=== PATIENT | female | born 1970 | race Caucasian/White ===

== ENCOUNTER 2016-11-14 13:00 | Emergency (ER) | payer SELFPAY ==
[2016-11-14 13:35] VITALS: RESP 18; TEMP 96.7
[2016-11-14] MEDS ORDERED: Sodium Chloride 0.9% 1,000 ML PRIMARY IV ONE (13:50)
[2016-11-14] MEDS ORDERED: ONDANSETRON 4 MG/2 ML VIAL IVP ONE (13:50)
[2016-11-14] MEDS ORDERED: ONDANSETRON 4 MG/2 ML VIAL ONE (13:52)
[2016-11-14 14:02] LABS: BASOPHILS # (AUTO) 0.07 10*3/UL; BASOPHILS % (AUTO) 1.2 % (0-1); EOSINOPHILS % (AUTO) 0.5 % (0-8); HEMATOCRIT 37.3 % (37.0-47.0); HEMOGLOBIN 13.1 g/dL (12.0-16.0); IMM GRAN % (AUTO) 1.5 % (0-5); IMM GRAN# (AUTO) 0.09 10*3/UL; LYMPHOCYTES % (AUTO) 36.9 % (10-50); MEAN CORPUSCULAR HEMOGLOBIN 33.9 PG (27-31); MEAN CORPUSCULAR HGB CONC 35.1 g/dL (33-37); MONOCYTES # (AUTO) 0.18 10*3/UL (0.3-0.8); NEUTROPHILS # (AUTO) 3.39 10*3/UL; NEUTROPHILS % (AUTO) 56.9 % (50-80); RED BLOOD COUNT 3.86 10^6/uL (4.20-5.40); WHITE BLOOD COUNT 5.96 10^3/uL (4.8-10.8)
[2016-11-14 14:06] LABS: PLATELET MORPHOLOGY COMMENT NORMAL MORPHOLOGY (NORM)
[2016-11-14 14:08] LABS: ASPARTATE AMINO TRANSFERASE 76 IU/L (8-39); BILIRUBIN,TOTAL 0.9 mg/dL (0.3-1.2); BLOOD UREA NITROGEN 11 mg/dL (7-22); BUN/CREATININE RATIO 18.33 (6-20); CALCIUM 9.4 mg/dL (8.7-10.7); CHLORIDE 97 meq/L (98-112); CREATININE 0.6 mg/dL (0.50-1.20); EST GLOMERULAR FILTRATION > 60 (>60 ml/min/1.73m(2)); GLUCOSE 203 mg/dL (78-110); MAGNESIUM 1.2 mg/dL (1.6-2.4); POTASSIUM 3.5 meq/L (3.8-5.2); SERUM ALCOHOL 270 mg/dL (0-10); SODIUM 140 meq/L (135-145); TOTAL PROTEIN 8.3 g/dL (6.1-8.0)
[2016-11-14] MEDS ORDERED: LORazepam 2 MG/1 ML VIAL IVP ONE ×2 (14:11→14:39)
[2016-11-14] MEDS ORDERED: LORazepam 2 MG/1 ML VIAL ONE (14:16)
--- NOTE | 2016-11-14 14:18 | PDOC ---
Alcohol/Drug Abuse HPI - General Chief Complaint: Drug / Alcohol Use &/or Abuse Stated Complaint: ACUTE ALCOHOL INTOXICATION Date Seen by Provider: 11/14/16 Time Seen by Provider: 14:14 Source: POSITIVE: RN/MD Exam Limitations: POSITIVE: Intoxication Nurse's Notes Reviewed & Considered: Yes - History of Present Illness Initial Comments: Patient comes in today with acute alcohol intoxication and vomiting. Patient with a long history of ER visits because of alcohol intoxication is brought in for further evaluation and has been placed on a 381 hold by [employer]. [id number] was placed because of inability to care for herself due to disability and substance abuse. Timing: REPORTS: Unknown Duration: Unknown Context: REPORTS: Altered Mental Status, Confusion, Desires To Detox Alcohol, Chronic ETOH Dependence Similar Symptoms Previously: Yes Recent Care Received: REPORTS: Recently Seen (In the emergency department last week.) Currently Enrolled in Methadone Program: No Associated Symptoms: REPORTS: Nausea, Vomitting, Confusion - Patient Home Medications Home Medications: Home Medications Amlodipine Besylate 5 mg PO DAILY #30 tablet 04/15/16 Metoprolol Tartrate 25 mg PO BID #60 tab 04/15/16 Losartan/Hydrochlorothiazide [Losartan-Hctz 100-12.5 mg Tab] 1 tab PO DAILY #30 tab 07/30/16 Acetaminophen [Tylenol] 650 mg PO QID PRN #1 tablet.sa 09/10/16 FLUoxetine HCl [PROzac] 20 mg PO DAILY #30 cap 09/10/16 Pantoprazole Sodium [Protonix] 40 mg PO DAILY #30 tablet. 09/10/16 Potassium Chloride 20 meq PO DAILY #20 tab 09/28/16 Promethazine HCl 1 tab PO TID PRN #20 tab 10/01/16 Ondansetron Odt [Zofran Odt] 8 mg PO Q6H PRN #10 tab.rapdis 10/24/16 Prochlorperazine Maleate [Compazine] 10 mg PO Q6H PRN #20 tablet 10/24/16 oxyCODONE/APAP 7.5/325 Tab [Percocet 7.5/325 Tab] 1 - 2 tab PO Q4H PRN #10 tab 10/26/16 LORazepam Tab [Ativan Tab] 1 mg PO Q4H PRN #12 tablet 11/08/16 - Patient Allergies Allergies/Adverse Reactions: Allergies Allergy/AdvReac Type Severity Reaction Status Date / Time No Known Drug Allergies Allergy NOT Verified 11/14/16 13:13 APPLICABLE Past Medical History - heen HEENT History: Other (please comment) Additional HEENT History: WEARS GLASSES. "BULL'S EYE VISION" Cardiovascular History: Hypertension, Other (please comment) Additional Cardiovasular History: PALPITATIONS Respiratory History: Pneumonia, Snoring, Other (please comment) Additional Respiratory History: chronic tobacco use Gastrointestinal History: GERD, Gallbladder Disease, Pancreatitis, Other ( please comment) Additional Gastrointestinal History: Chronic alcoholism. elevated liver enzymes Genitourinary History: Denies History Endocrine History: Denies History Musculoskeletal History: Joint Pain, Other (please comment) Prosthesis or Implant: Yes (BREAST AUGMENTATION) Additional Musculoskeletal History: Pt fell down several stairs and fractured right shoulder. Pt had surgery on shoulder to repair fracture. X2 Neurological History: Seizures, Other (please comment) Additional Neurological History: SEIZURE WITH DETOX Blood Disorders: Denies History Psychiatric History: Depression, Anixety Disorders, Substance Abuse, Other ( please comment) Additional Psychiatric History: ALCOHOLISM: CHRONIC AND RECURRENT. PANIC DISORDER. PATIENT RECENTLY ATTEMPTED REHAB History of Sexually Transmitted Diseases: No Cancer History: Denies History In Past Year Been Physically Harmed or Verbally Threatened: No History of MDRO: Yes Other Type of MDRO: TESTED POSITIVE 2014 FOLLOWED BY 2 NEG SWABS History of Other Communicable Diseases: Yes (MONO, VARICELLA) Tobacco Use: Current Every Day Smoker Alcohol Use: Heavy Type of alcohol normally used: Hard Liquor, Wine Substance Use Type: None Previous Surgical History: Yes Type / Date of Surgery: APPENDECTOMY, CHOLECYSTECTOMY, ABDOMINOPLASTY, BREAST AUGMENTATION, Right shoulder surgeryX2 Anesthesia Reactions: No Malignant Hyperthermia: No Significant Family History: Asthma, Heart disease, Cancer, Diabetes, Hypertension Additional Family History: EARLY MENOPAUSE - MOTHER ROS - Limitations ROS Limitations: Intoxication (Review of systems unavailable because of the patient's altered mental status and intoxicated state.) Alcohol/Drug Abuse PE - General Appearance General Appearance: POSITIVE: Moderate Stress - HEENT HEENT: POSITIVE: Head Inspection Nml, Eyes Inspection Nml, Ears Inspection Nml, Nose Inspection Nml, Oral/Dental Inspect. Nml, Pharynx Inspect. Nml, PERRL, EOMI - Pupil Size Pupil Size: 4 mm: Bilateral - Neurological/Psychological Neurological: POSITIVE: Other (Intoxicated.), Disoriented To Time Cranial Nerves: POSITIVE: Normal As Tested Cerebellar: POSITIVE: Abnormal Finger To Nose Peripheral Exam: POSITIVE: No Motor Deficits, No Sensory Deficits - Neck Neck: POSITIVE: Supple, Non Tender - Respiratory Respiratory: POSITIVE: No Respiratory Distress, Breath Sounds Normal - CVS CVS: POSITIVE: Regular Rate and Rhythm, Heart Sounds Normal - Abdomen Abdomen: Soft: (All Quadrants), Normal Bowel Sounds: (All Quadrants), Denies Tenderness: (All Quadrants) - Skin Skin: POSITIVE: Normal for Race, No Rash, Warm, Dry - Extremities Extremity: Non-Tender: (All Extremities), Normal ROM: (All Extremities), Normal Inspection: (All Extremities) Alcohol/Drug Abuse Progress - Results Reviewed by me Lab Results Reviewed: Yes Lab Results:: Laboratory Results 11/14/16 Range/Units 13:45 WBC 5.96 (4.8-10.8) 10^3/uL RBC 3.86 L (4.20-5.40) 10^6/uL Hgb 13.1 (12.0-16.0) g/dL Hct 37.3 (37.0-47.0) % MCV 96.6 (81-99) FL MCH 33.9 H (27-31) PG MCHC 35.1 (33-37) g/dL RDW Std Deviation 51.6 H (39-50) fL RDW Coeff of Farzad 15.0 H (11.5-14.5) % Plt Count 464 H (140-350) 10*3/uL MPV 9.0 (7.4-12.2) FL Immature Gran % (Auto) 1.5 (0-5) % Neut % (Auto) 56.9 (50-80) % Lymph % (Auto) 36.9 (10-50) % Wells % (Auto) 3.0 L (5-15) % Eos % (Auto) 0.5 (0-8) % Baso % (Auto) 1.2 H (0-1) % Immature Gran # (Auto) 0.09 10*3/UL Neut # (Auto) 3.39 10*3/UL Lymph # (Auto) 2.20 10*3/uL Wells # (Auto) 0.18 L (0.3-0.8) 10*3/UL Eos # (Auto) 0.03 10*3/UL Baso # (Auto) 0.07 10*3/UL WBC Morphology Comment Normal morphology (NORM) Plt Morphology Comment Normal morphology (NORM) RBC Morph Comment Normal morphology (NORM) PT 11.7 H (9.7-11.4) secs INR 1.13 (0.00-5.90) N/A Sodium 140 (135-145) meq/L Potassium 3.5 L (3.8-5.2) meq/L Chloride 97 L (98-112) meq/L Carbon Dioxide 13 L (23-33) meq/L Anion Gap 30 H (5-20) BUN 11 (7-22) mg/dL Creatinine 0.6 (0.50-1.20) mg/dL Estimated GFR > 60 (>60 ml/min/1.73m(2)) BUN/Creatinine Ratio 18.33 (6-20) Glucose 203 H (78-110) mg/dL Calculated Osmolality 294.0 H (267-292) mOsm/kg Calcium 9.4 (8.7-10.7) mg/dL Magnesium 1.2 L (1.6-2.4) mg/dL Total Bilirubin 0.9 (0.3-1.2) mg/dL AST 76 H (8-39) IU/L ALT 53 H D (9-52) IU/L Alkaline Phosphatase 110 (38-126) IU/L Total Protein 8.3 H (6.1-8.0) g/dL Albumin 4.9 H (3.5-4.8) g/dL Globulin 3.4 (2.50-4.10) g/dL Albumin/Globulin Ratio 1.40 (1.3-2.0) mg/g TSH 0.690 (0.2700-4.2000) uIU/mL Free T4 0.92 L (0.93-1.71) ng/dL Serum HCG, Qual Negative Salicylates < 1.0 (0-20) mg/dl Acetaminophen < 10.0 (0-30) ug/mL Serum Alcohol 270 H (0-10) mg/dL - Patient's Progress Pain Medication Addressed: POSITIVE: Not Applicable Status: POSITIVE: Improved MDM / ED Course: Patient brought to the emergency department on hold by [employer]. An IV was started, blood drawn and sent to lab for studies. She received a bolus of normal saline, 2 mg of Ativan, Zofran, and Phenergan. He continued to be a restorationism of repeatedly been up out of bed and trying to ambulate. He was placed into soft restraints. She has been accepted for inpatient evaluation by [facility]. Assessment: Alcohol intoxication, failure to care for self. Plan: Transfer to [facility]. - Consult Counseled: POSITIVE: Patient, Family, RE: Lab Results, RE: DX - Treatment Voluntarily Accepts Detox: No Patient Care Time - Estimated PCT Patient Care Time (In Minutes): 75 Vital Signs - Recent Vital Signs Vital Signs: Vital Signs (Last 8 hours) Temp Pulse Pulse Resp BP BP Pulse Ox 11/14/16 13:19 96.7 F L 105 H 105 H 18 172/106 172/106 99 - VS Reviewed Vital Signs Reviewed: Yes Discharge Clinical Impression: Alcohol abuse, Alcohol intoxication, Continuous chronic alcoholism Discharge Disposition: Transferred to Psychiatric Facility Condition: Stable Patient Instructions Given at Discharge: Alcohol Intoxication (ED) Date Decision to Transfer to Another Facility: 11/14/16 Time Decision to Transfer to Another Facility: 15:59
[2016-11-14 14:25] LABS: FREE T4 (FREE THYROXINE) 0.92 ng/dL (0.93-1.71)
[2016-11-14 14:27] LABS: PROTHROMBIN TIME 11.7 secs (9.7-11.4)
[2016-11-14] MEDS ORDERED: PROMETHAZINE 25 MG/1 ML VIAL IM ONE (15:35)
[2016-11-14] MEDS ORDERED: HALOPERIDOL LACTATE 5 MG/1 ML AMPULE IVP ONE (15:52)
[2016-11-15] MEDS ORDERED: Sodium Chloride 0.9% 1,000 ML ONE (06:10)
== END 2016-11-14 17:30 ==
LOC: ER 13:00
DX: F10.229 Alcohol dependence with intoxication, unspecified (principal); R11.2 Nausea with vomiting, unspecified; R41.82 Altered mental status, unspecified
CPT/HCPCS: 80053; 80320; 80329; 83735; 84439; 84443; 84703; 85025; 85610; 90791; 96372; 96374; 96375; 99284; J1630; J2060; J2405; J2550; J7030

== ENCOUNTER → 2016-11-22 | Outpatient (CLI) | payer SELFPAY ==
--- NOTE | 2016-11-22 18:31 | DI ---
History: Surgical repair right humeral fracture. Evaluate status. Procedure: Three-view examination. Prior study: 10/29/16. Findings: Fixation plate along the proximal humeral diaphysis, transfixing the surgical neck fracture . There are still some comminuted fragments laterally. 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 Adjacent clavicle and ribs appear normal. Impression: Satisfactory position of fixation plate across the proximal right humeral fracture. Taisha garcias mentioned above
== END ==
LOC: ORTHO 16:19
PROVIDERS: ATTEND Orthopaedic Surgery
DX: M25.511 Pain in right shoulder (principal); S42.291D Other displaced fracture of upper end of right humerus, subsequent encounter for fracture with routine healing; Z98.890 Other specified postprocedural states
CPT/HCPCS: 73030

== ENCOUNTER 2016-12-10 01:11 | Inpatient (IN) | payer SELFPAY ==
[2016-12-10] MEDS ORDERED: Sodium Chloride 0.9% 1,000 ML PRIMARY IV ONE ×2 (01:26→03:52)
[2016-12-10] MEDS ORDERED: NORMAL SALINE 10 ML SYRINGE FLUSH IVP PRN (01:26)
[2016-12-10] MEDS ORDERED: ONDANSETRON 4 MG/2 ML VIAL IVP ONE ×2 (01:26→03:50)
[2016-12-10 02:17] LABS: BASOPHILS # (AUTO) 0.02 10*3/UL; BASOPHILS % (AUTO) 0.2 % (0-1); EOSINOPHILS % (AUTO) 0.1 % (0-8); HEMATOCRIT 42.2 % (37.0-47.0); HEMOGLOBIN 15.1 g/dL (12.0-16.0); IMM GRAN % (AUTO) 0.2 % (0-5); IMM GRAN# (AUTO) 0.02 10*3/UL; LYMPHOCYTES # (AUTO) 1.65 10*3/uL; LYMPHOCYTES % (AUTO) 14.4 % (10-50); MEAN CORPUSCULAR HEMOGLOBIN 33.1 PG (27-31); MEAN CORPUSCULAR HGB CONC 35.8 g/dL (33-37); MEAN PLATELET VOLUME 9.4 FL (7.4-12.2); MONOCYTES # (AUTO) 0.41 10*3/UL (0.3-0.8); MONOCYTES % (AUTO) 3.6 % (5-15); NEUTROPHILS # (AUTO) 9.33 10*3/UL; NEUTROPHILS % (AUTO) 81.5 % (50-80); RDW COEFFICIENT OF VARIATION 15.3 % (11.5-14.5); RED BLOOD COUNT 4.56 10^6/uL (4.20-5.40); WHITE BLOOD COUNT 11.44 10^3/uL (4.8-10.8)
[2016-12-10 02:20] LABS: BILIRUBIN,URINE SMALL (NEG); CLARITY,URINE CLEAR (CLEAR); GLUCOSE, URINE (UA) NEGATIVE (NEG); LEUKOCYTE ESTERASE ,URINE NEGATIVE (NEG); NITRATE,URINE NEGATIVE (NEG); OCCULT BLOOD,URINE Trace-lysed (NEG); PH,URINE 5.5 (5.0-8.5); PROTEIN,URINE 30 mg/dl (NEG); UROBILINOGEN,URINE 0.2 EU/dL (0.2)
[2016-12-10 02:21] LABS: PLATELET MORPHOLOGY COMMENT NORMAL MORPHOLOGY (NORM); URINE SAMPLE TYPE CLEAN CATCH URINE
[2016-12-10 02:26] LABS: BILIRUBIN,TOTAL 1.5 mg/dL (0.3-1.2); CALCIUM 10.7 mg/dL (8.7-10.7); CREATININE 1.8 mg/dL (0.50-1.20); POTASSIUM 3.2 meq/L (3.8-5.2); TOTAL PROTEIN 9.5 g/dL (6.1-8.0)
[2016-12-10 02:27] LABS: AMYLASE 514 U/L (30-110)
[2016-12-10 02:33] LABS: BACTERIA,URINE RARE; RBC,URINE 0-3 /hpf; SQUAMOUS EPITHELIAL CELL,UR FEW
[2016-12-10] MEDS ORDERED: PROMETHAZINE 25 MG/1 ML VIAL IM ONE (02:36)
[2016-12-10] MEDS ORDERED: HYDROmorphone 2 MG/1 ML IVP ONE (03:50)
[2016-12-10] MEDS ORDERED: MAG HYDROX/AL HYDROX/SIMETH 30 ML SUSP PO PRN (04:08)
[2016-12-10] MEDS ORDERED: HYDROmorphone 2 MG/1 ML IVP PRN (04:08)
[2016-12-10] MEDS ORDERED: Sodium Chloride 0.9% 1,000 ML IV ONE (04:08)
[2016-12-10] MEDS ORDERED: Magnesium Sulfate 4gm (Premix) 4 GM in Premix 1 BAG IV ONE (04:08)
[2016-12-10] MEDS ORDERED: MAGNESIUM 400 MG/5 ML - 30 ML (MILK OF MAGNESIA) PO PRN (04:08)
--- NOTE | 2016-12-10 04:23 | PDOC ---
Abdomen/Flank HPI - General Chief Complaint: General Medical Stated Complaint: abdominal pain; vomiting Date Seen by Provider: 12/10/16 Time Seen by Provider: 01:20 Source: POSITIVE: Patient, Old records Exam Limitations: POSITIVE: No limitations Nurse's Notes Reviewed & Considered: Yes - History of Present Illness Initial Comments: The patient is a 46-year-old female. She states that for the last 1-2 days she' s had upper abdominal pain and associated nausea and vomiting. Patient has a long-standing history of recurring pancreatitis. She also has a history of alcohol abuse. She states she's not had any alcohol since 14 November. Patient has had a cholecystectomy. Body Location Affected: REPORTS: Abdomen Timing: REPORTS: Gradual, Getting Worse Duration: >24 hours Severity: Moderate Quality: REPORTS: "Pain" Abdominal Pain Onset Location: REPORTS: Epigastric, Periumbilical Abdominal Pain Radiation: REPORTS: No radiation Context: DENIES: None, Activity, Bending, Coughing, Fall, Lifting, Near Fall, Rest, Sitting, Sleep, Standing, Turning, Emotional stress, Camping, Bad Food, Out of Country Travel, Other, Recent Surgery, Recent Trauma Modifying Factors: improves with: Vomiting Associated Symptoms: REPORTS: Nausea, Vomiting. DENIES: Denies symptoms, Back pain, Bloody Emesis, Chest pain, Coffee Grounds Emesis, Chills, Diaphoresis, Fever, Fatigue, Headache, Heartburn, Loss of Appetite, Rash, Shortness of breath , Swelling/mass in abdomen, Syncope, Testicular Pain, Weakness, Grossly Bloody Diarrhea, Constipation, Diarrhea, Dysuria, Incontinent Stool, Incontinent Urine , Mucous Diarrhea, Difficulty Walking, Dizziness, Light Headedness, Numbness, Other Similar Symptoms Previously: Yes Recent Care Received: REPORTS: Denies Any Prior Injuries Related to Current Complaint?: No - Patient Home Medications Home Medications: Home Medications Acetaminophen [Tylenol] 650 mg PO QID PRN #1 tablet. 09/10/16 Pantoprazole Sodium [Protonix] 40 mg PO DAILY #30 tablet. 09/10/16 Potassium Chloride 20 meq PO DAILY #20 tab 09/28/16 Promethazine HCl 1 tab PO TID PRN #20 tab 10/01/16 Ondansetron Odt [Zofran Odt] 8 mg PO Q6H PRN #10 tab.willow 10/24/16 Prochlorperazine Maleate [Compazine] 10 mg PO Q6H PRN #20 tablet 10/24/16 Fluoxetine HCl 1 cap PO DAILY #30 cap 11/19/16 Amlodipine Besylate 5 mg PO DAILY #30 tablet 11/29/16 Clonazepam 1 tab PO BID #14 tab 11/29/16 Losartan/Hydrochlorothiazide [Losartan-Hctz 100-12.5 Mg Tab] 1 tab PO DAILY #30 tab 11/29/16 Metoprolol Tartrate 25 mg PO BID #60 tab 11/29/16 - Patient Allergies Allergies/Adverse Reactions: Allergies Allergy/AdvReac Type Severity Reaction Status Date / Time No Known Drug Allergies Allergy NOT Verified 12/10/16 01:20 APPLICABLE Past Medical History - heen HEENT History: Other (please comment) Additional HEENT History: WEARS GLASSES. "BULL'S EYE VISION" Cardiovascular History: Hypertension, Other (please comment) Additional Cardiovasular History: PALPITATIONS Respiratory History: Pneumonia, Snoring, Other (please comment) Additional Respiratory History: chronic tobacco use Gastrointestinal History: GERD, Gallbladder Disease, Pancreatitis, Other ( please comment) Additional Gastrointestinal History: Chronic alcoholism. elevated liver enzymes Genitourinary History: Denies History Endocrine History: Denies History Musculoskeletal History: Joint Pain, Other (please comment) Prosthesis or Implant: Yes (BREAST AUGMENTATION) Additional Musculoskeletal History: Pt fell down several stairs and fractured right shoulder. Pt had surgery on shoulder to repair fracture. X2 Neurological History: Seizures, Other (please comment) Additional Neurological History: SEIZURE WITH DETOX Blood Disorders: Denies History Psychiatric History: Depression, Anixety Disorders, Substance Abuse, Other ( please comment) Additional Psychiatric History: ALCOHOLISM: CHRONIC AND RECURRENT. PANIC DISORDER. PATIENT RECENTLY ATTEMPTED REHAB History of Sexually Transmitted Diseases: No Cancer History: Denies History In Past Year Been Physically Harmed or Verbally Threatened: No History of MDRO: Yes Type of MDRO: MRSA Other Type of MDRO: TESTED POSITIVE 2014 FOLLOWED BY 2 NEG SWABS History of Other Communicable Diseases: Yes (MONO, VARICELLA) Tobacco Use: Current Every Day Smoker Alcohol Use: Heavy Substance Use Type: None Previous Surgical History: Yes Type / Date of Surgery: APPENDECTOMY, CHOLECYSTECTOMY, ABDOMINOPLASTY, BREAST AUGMENTATION, Right shoulder surgeryX2 Anesthesia Reactions: No Malignant Hyperthermia: No Significant Family History: Asthma, Heart disease, Cancer, Diabetes, Hypertension Additional Family History: EARLY MENOPAUSE - MOTHER Past Medical History Reviewed: Reviewed - No Changes ROS - Limitations ROS Limitations: No Limitations Constitution: REPORTS: Denies Symptoms Cardiovascular: REPORTS: Denies Cardiac Symptoms Respiratory: REPORTS: Denies Resp Symptoms Neurological: REPORTS: Denies Neuro Symptoms Gastrointestinal: REPORTS: Abdominal Pain, Nausea, Vomitting Endocrine: REPORTS: Denies Symptoms Musculoskeletal: REPORTS: Denies MS Symptoms Genitourinary: REPORTS: Denies Symptoms Eyes: REPORTS: Denies Symptoms ENT: REPORTS: Denies Symptoms Skin: REPORTS: Denies Skin Symptoms Lympathic: REPORTS: Denies Lympathic Symptoms Immunologic: POSITIVE: Denies Symptoms Psychiatric: POSITIVE: Denies Psych Symptoms Abdominal/Flank Pain PE - General Appearance General Appearance: POSITIVE: Alert, Cooperative, No Acute Distress, No Evidence of Trauma, Anxious - HEENT HEENT: POSITIVE: Head Inspection Nml, Eyes Inspection Nml, Ears Inspection Nml, Nose Inspection Nml, Oral/Dental Inspect. Nml, Pharynx Inspect. Nml, PERRL, EOMI - Neck Neck: POSITIVE: Normal Inspection, No Apparent Injury - Respiratory Respiratory: POSITIVE: No Respiratory Distress, Breath Sounds Normal, Chest Non- Tender - Cardiovascular Cardiovascular: POSITIVE: Regular Rate and Rhythm, Heart Sounds Normal, Equal Pulses, Strong Pulses Peripheral Pulses: Radial (R): 2+, Radial (L): 2+ - Chest Chest: POSITIVE: Non Tender - Abdomen Abdomen: Soft: (All Quadrants), Normal Bowel Sounds: (All Quadrants), No Splenomegaly: (All Quadrants), No Hepatomegaly: (All Quadrants), No Guarding: ( All Quadrants), No Rebound: (All Quadrants), No Palpable Pulse: (All Quadrants) , No Palpabale Mass: (All Quadrants), No Distention: (All Quadrants), No Rigidity: (All Quadrants), Tenderness Noted: (RUQ), (LUQ) (paraumbilical area) Additional Abdominal Details: Abdominal examination shows bowel sounds to be present. Patient has pain on palpation over the epigastric area and paraumbilical area, without masses or organomegaly or rebound. 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 Normal As Tested, Motor Normal, Sensation Normal - Psychological Psychiatric: POSITIVE: Affect Appropriate, Mood Appropriate Images - Complete Complete: 1 - Pain on palpation Abdomen Progress - Results Reviewed by me Lab Results Reviewed: Yes Lab Results:: Laboratory Results 12/10/16 12/10/16 Range/Units 02:14 03:20 WBC 11.44 H (4.8-10.8) 10^3/uL RBC 4.56 (4.20-5.40) 10^6/uL Hgb 15.1 (12.0-16.0) g/dL Hct 42.2 (37.0-47.0) % MCV 92.5 (81-99) FL MCH 33.1 H (27-31) PG MCHC 35.8 (33-37) g/dL RDW Std Deviation 51.2 H (39-50) fL RDW Coeff of Farzad 15.3 H (11.5-14.5) % Plt Count 261 (140-350) 10*3/uL MPV 9.4 (7.4-12.2) FL Immature Gran % (Auto) 0.2 (0-5) % Neut % (Auto) 81.5 H (50-80) % Lymph % (Auto) 14.4 (10-50) % [place]er % (Auto) 3.6 L (5-15) % Eos % (Auto) 0.1 (0-8) % Baso % (Auto) 0.2 (0-1) % Immature Gran # (Auto) 0.02 10*3/UL Neut # (Auto) 9.33 10*3/UL Lymph # (Auto) 1.65 10*3/uL [place]er # (Auto) 0.41 (0.3-0.8) 10*3/UL Eos # (Auto) 0.01 10*3/UL Baso # (Auto) 0.02 10*3/UL WBC Morphology Comment Normal morphology (NORM) Plt Morphology Comment Normal morphology (NORM) RBC Morph Comment Normal morphology (NORM) Sodium 131 L (135-145) meq/L Potassium 3.2 L (3.8-5.2) meq/L Chloride 87 L (98-112) meq/L Carbon Dioxide 17 L (23-33) meq/L Anion Gap 27 H (5-20) BUN 45 H (7-22) mg/dL Creatinine 1.8 H (0.50-1.20) mg/dL Estimated GFR 30 (>60 ml/min/1.73m(2)) BUN/Creatinine Ratio 25.00 H (6-20) Glucose 149 H (78-110) mg/dL Calculated Osmolality 286.0 (267-292) mOsm/kg Calcium 10.7 (8.7-10.7) mg/dL Total Bilirubin 1.5 H (0.3-1.2) mg/dL AST 47 H (8-39) IU/L ALT 43 (9-52) IU/L Alkaline Phosphatase 117 (38-126) IU/L Total Protein 9.5 H (6.1-8.0) g/dL Albumin 5.7 H (3.5-4.8) g/dL Globulin 3.8 (2.50-4.10) g/dL Albumin/Globulin Ratio 1.50 (1.3-2.0) mg/g Amylase 514 H (30-110) U/L Lipase 4043 H* (23-300) IU/L Serum HCG, Qual Negative Ur Collection Type Clean catch urine Urine Color Yellow Urine Clarity Clear (CLEAR) Urine pH 5.5 (5.0-8.5) Ur Specific [place] 1.015 (1.005-1.030) Urine Protein 30 (NEG) mg/dl Urine Glucose (UA) Negative (NEG) mg/dL Urine Ketones 15 (NEG) Urine Occult Blood Trace-lysed H (NEG) Urine Nitrate Negative (NEG) Urine Bilirubin Small (NEG) Urine Urobilinogen 0.2 (0.2) EU/dL Ur Leukocyte Esterase Negative (NEG) Urine RBC 0-3 (NONE) /hpf Urine WBC 3-5 (NONE) Ur Squamous Epith Cells Few (NONE) Ur Renal Epithelial Cell None (NONE) Urine Crystals None Urine Bacteria Rare (NONE) Urine Casts Few (NONE) Urine Mucus Rare (NONE) Urine Trichomonas None (NONE) Urine Yeast None (NONE) Ur Culture Indicated? Culture not set Serum Alcohol < 10 (0-10) mg/dL - Patient's Progress Pain Medication Addressed: POSITIVE: Yes (Dilaudid 2 mg IV) School/Work Release Addressed: POSITIVE: Not Applicable Re-examine Time: 03:50 Re-Examine Comment: Patient given 2 L of normal saline IV along with 2 mg of Dilaudid IV and 4 mg of Zofran IV, and 50 mg of Phenergan IM, with some improvement of pain. Status: POSITIVE: Improved, Re-Examined - Consult Consult (If Yes, Name of Consulting MD & Time Called): Yes (, hospitalist , 1894 ) Consulting MD will see pt:: POSITIVE: [facility] [place] Admit Counseled: POSITIVE: Patient, RE: Lab Results, RE: DX, RE: Need for F/U Patient Care Time - Estimated PCT Patient Care Time (In Minutes): 40 Vital Signs - Recent Vital Signs Vital Signs: Vital Signs (Last 8 hours) Temp Pulse Resp BP Pulse Ox 12/10/16 01:15 98.1 F 101 H 18 156/104 98 - VS Reviewed Vital Signs Reviewed: Yes Discharge Clinical Impression: Pancreatitis, acute Discharge Disposition: Admit to Inpatient Condition: Stable Date Decision to Admit to Inpatient: 12/10/16 Time Decision to Admit to Inpatient: 03:30
[2016-12-10] MEDS: Diazepam Inj (ETOH withdrawal)10 MG/2 ML CARPUJECT IVP PRN ×2 (05:17→08:50)
[2016-12-10] MEDS: NORMAL SALINE 10 ML SYRINGE FLUSH IVP PRN (05:17)
[2016-12-10] MEDS: D5-1/2NS + 40mEq KCL 1,000 ML PRIMARY IV SCH ×3 (07:10→20:10)
[2016-12-10] MEDS: OMEPRAZOLE 20 MG CAPSULE PO SCH (08:31)
[2016-12-10] MEDS: NICOTINE 21 MG /DAY PATCH TRANSDERM SCH (08:31)
[2016-12-10] MEDS: Metoprolol TARTRATE Tab 25 MG TAB PO SCH ×2 (08:32→20:10)
[2016-12-10] MEDS: FLUoxetine 20 MG CAPSULE PO SCH (08:32)
[2016-12-10] MEDS: MAGNESIUM OXIDE 400 MG TABLET PO SCH ×2 (08:32→20:10)
[2016-12-10] MEDS: AmLODIPine Tab 5 MG TABLET PO SCH (08:32)
[2016-12-10] MEDS: HYDROmorphone 2 MG/1 ML IVP PRN ×5 (11:05→20:09)
[2016-12-10] MEDS: ONDANSETRON 4 MG/2 ML VIAL IV PRN (11:07)
[2016-12-10] MEDS: LORazepam Inj(ETOH withdrawal) 2 MG/ML VIAL IVP PRN ×2 (11:10→13:43)
--- NOTE | 2016-12-10 13:43 | PDOC ---
History and Physical - History of Present Illness History of Present Illness: There is a very nice 46-year-old female with past medical history of alcohol abuse and recurrent pancreatitis she is well-known to our service and has been admitted again for acute episode of pancreatitis she has had some left upper abdominal pain over the last few days with some nausea and vomiting she was alcohol free for about a couple months then she started drinking again and she states that she has not had a drink since November 14 but developed pancreatitis and nevertheless this is may be her fourth or fifth episode Past Medical History Medical History: 1. Hypertension. 2. tobacco abuse. 3. Alcohol abuse. 4. Recurrent pancreatitis. 5. Major depressive disorder versus bipolar disorder, one of the reasons patient states she drinks alcohol. 6. Medical noncompliance Surgical History: 1. History of cholecystectomy. 2. Appendectomy. 3. Breast augmentation and tummy tuck. 4. Shoulder surgery couple weeks ago Family History: Reviewed an Not Pertinent Pertinent Family History: The patient is adopted but states her biologic mother had diabetes type II Past Social History: Smokes, drinks alcohol, lives in [place] with her father Tobacco Use: Current Every Day Smoker Substance Use Type: None Medication / Allergies Home Medications: Home Medications Medication Instructions Recorded Confirmed Type Acetaminophen [Tylenol] 650 mg PO QID PRN #1 tablet. 09/10/16 12/10/16 Rx Pantoprazole Sodium [Protonix] 40 mg PO DAILY #30 tablet. 09/10/16 12/10/16 Rx Potassium Chloride 20 meq PO DAILY #20 tab 09/28/16 12/10/16 Rx Promethazine HCl 1 tab PO TID PRN #20 tab 10/01/16 12/10/16 Clinic Ondansetron Odt [Zofran Odt] 8 mg PO Q6H PRN #10 tab.rapdis 10/24/16 12/10/16 Rx Prochlorperazine Maleate 10 mg PO Q6H PRN #20 tablet 10/24/16 12/10/16 Rx [Compazine] Fluoxetine HCl 1 cap PO DAILY #30 cap 11/19/16 12/10/16 Clinic Amlodipine Besylate 5 mg PO DAILY #30 tablet 11/29/16 12/10/16 Clinic Clonazepam 1 tab PO BID #14 tab 11/29/16 12/10/16 Clinic Losartan/Hydrochlorothiazide 1 tab PO DAILY #30 tab 11/29/16 12/10/16 Clinic [Losartan-Hctz 100-12.5 Mg Tab] Metoprolol Tartrate 25 mg PO BID #60 tab 11/29/16 12/10/16 Clinic Allergies/Adverse Reactions: Allergies Allergy/AdvReac Type Severity Reaction Status Date / Time No Known Drug Allergies Allergy NOT Verified 12/10/16 13:32 APPLICABLE Review of Systems - Respiratory Respiratory: DENIES: Negative System Review, Cough, Sputum, Dyspnea At Rest, Dyspnea with Exertion, Pleuritic Pain, Hemoptysis, Wheezing, Other, See HPI - Gastrointestinal Gastrointestinal / Abdominal: REPORTS: Nausea, Abdominal Pain. DENIES: Diarrhea - Genitourinary Genitourinary: DENIES: Negative System Review, Pain, Burning, Hematuria, Incontinence, Urgency, Hesitant Stream, Decreased Stream, Nocutria, Discharge, Sexual Dyfunction, Other, See HPI - Neurological Neurologic: DENIES: Negative System Review, Headache, Numbness/Paresthesia, Tremors, Weakness, Seizures, Head Trauma, LOC, Dizziness, Confusion, Memory Loss , Difficulty Walking, Incoordination, Other, See HPI Exam - Vitals Vital Signs: Vital Signs Temperature 97.6 F Temperature Source Temporal Artery Scan Pulse Rate [Pulse Oximeter] 79 Pulse Rate 83 Respiratory Rate 16 Blood Pressure [Left Arm] 156/93 Blood Pressure 147/87 Pulse Ox 95 Oxygen Delivery Method Room Air Height 5 ft 3 in Weight 56.699 kg - General General Appearance: POSITIVE: No Acute Distress, Cooperative - Head Head Exam: POSITIVE: Normal Inspection - Eye Eye Exam: POSITIVE: Normal Appearance - Respiratory Respiratory Exam: POSITIVE: Clear to Auscultation - Bilaterally, Breathing Non Labored, Normal To Percussion - Cardiovascular Cardiovascular Exam: POSITIVE: RRR, No Murmur, No Clicks - GI/Abdominal Additional GI/Abdominal Exam Details: Left upper quadrant pain no guarding - Extremities Extremities Exam: POSITIVE: No Clubbing Present, No Edema Present - Neurological Neurological Exam: POSITIVE: Oriented x 3, CN II-XII Intact - Psychiatric Psychiatric Exam: POSITIVE: Normal Affect, Normal Mood Results - Labs CBC and BMP: 12/10/16 02:14 12/10/16 02:14 Labs - Last 24 Hours: Laboratory Results 12/10/16 Range/Units 04:23 Lactic Acid 0.6 L (0.70-2.10) MMOL/L Assessment and Plan - Patient Problems (1) Pancreatitis, acute Current Visit: Yes Status: Acute Code(s): K85.9 (2) Acute hypokalemia Current Visit: No Status: Acute (3) Anxiety Current Visit: No Status: Acute - Assessment / Plan Additional Assessment/Plan Details: #1 acute pancreatitis most likely chronic recurrent episodes and by mouth pain control IV fluids we will check a CAT scan of her abdomen #2 electrolyte imbalance replace #3 he hydration IV fluids 75 mL an hour
[2016-12-10 14:18] LABS: BLOOD UREA NITROGEN 23 mg/dL (7-22); BUN/CREATININE RATIO 28.75 (6-20); CALCIUM 8.8 mg/dL (8.7-10.7); CHLORIDE 96 meq/L (98-112); CREATININE 0.8 mg/dL (0.50-1.20); EST GLOMERULAR FILTRATION > 60 (>60 ml/min/1.73m(2)); GLUCOSE 188 mg/dL (78-110); POTASSIUM 3.6 meq/L (3.8-5.2); SODIUM 131 meq/L (135-145)
--- NOTE | 2016-12-10 18:15 | DI ---
CT ABDOMEN SCAN WITH IV CONTRAST, 12/10/2016 1:43 PM : Clinical History: Pancreatitis. Abdominal pain. Previous Exam: None at this facility. Scans are performed from the lower lung bases through the liver and kidneys with IV contrast. 50 ml o f Isovue 300 was injected IV by hand by myself. No oral or rectal contrast was ordered. The lung bases are clear. There is hepatomegaly with fatty infiltration. The gallbladder is grossly n ormal. Both adrenal glands and the spleen are normal. Very mild inflammatory/infiltrative change has developed in the retroperitoneal fat surrounding the body and tail of the pancreas consistent with th e clinical history of pancreatitis. The pancreatic duct is not dilated and there are no pseudocysts. There is a single punctate calcification but this probably is in the splenic artery. There are no efrain ices visualized. Both kidneys are normal in size, shape, position and contour. There is no hydronephr osis or hydroureter. No right renal or ureteral calculi are present. There is a 9 mm nonobstructing c alculus in upper pole calyx of the left kidney and a 4 mm calculus located in a mid zone calyx. There is no ureteral calculus seen on the left side. There are no abnormal retrocrural or periaortic nodes . No ascites is present. READIN. There is mild peripancreatic inflammatory/infiltrative change primarily over the region of the omar dy and tail of the pancreas consistent with pancreatitis. There are no pseudocysts or pancreatic duct dilatation or pancreatic calcifications. 2. Fatty infiltration of the liver with mild hepatomegaly. No varices are identified. 3. There are 2 nonobstructing left renal calculi that are unchanged from the previous study. CT PELVIS SCAN WITH IV CONTRAST, 12/10/2016 1:43 PM: Clinical History: See above. Previous Exam: None at this facility. Scans are performed from just superior to the umbilicus to the symphysis pubis with IV contrast. This is the same bolus of contrast used for the CT scans of the abdomen. Scans through the lower abdomen and pelvis show no masses or abnormal fluid collections. There is no adenopathy. The appendix is not visualized but there is no inflammatory mass either in the cecal tip or in the right lower quadrant. The small bowel, terminal ileum, and ileocecal valve are normal. The colon is also normal. There are no hernias. The uterus is unremarkable in the left ovary is normal. T he right ovary is not identified with certainty. READING: Normal CT scan of the pelvis.
[2016-12-11] MEDS: HYDROmorphone 2 MG/1 ML IVP PRN ×7 (00:21→21:00)
[2016-12-11] MEDS: NORMAL SALINE 10 ML SYRINGE FLUSH IVP PRN (02:25)
[2016-12-11] MEDS: LORazepam Inj(ETOH withdrawal) 2 MG/ML VIAL IVP PRN ×2 (02:26→17:21)
[2016-12-11] MEDS: D5-1/2NS + 40mEq KCL 1,000 ML PRIMARY IV SCH ×4 (04:52→23:49)
[2016-12-11 05:52] LABS: BASOPHILS # (AUTO) 0.01 10*3/UL; BASOPHILS % (AUTO) 0.1 % (0-1); EOSINOPHILS % (AUTO) 0.7 % (0-8); HEMATOCRIT 37.8 % (37.0-47.0); HEMOGLOBIN 12.9 g/dL (12.0-16.0); IMM GRAN % (AUTO) 0.1 % (0-5); IMM GRAN# (AUTO) 0.01 10*3/UL; LYMPHOCYTES # (AUTO) 2.11 10*3/uL; LYMPHOCYTES % (AUTO) 29.8 % (10-50); MEAN CORPUSCULAR HEMOGLOBIN 32.3 PG (27-31); MEAN CORPUSCULAR HGB CONC 34.1 g/dL (33-37); MEAN PLATELET VOLUME 9.7 FL (7.4-12.2); MONOCYTES # (AUTO) 0.49 10*3/UL (0.3-0.8); MONOCYTES % (AUTO) 6.9 % (5-15); NEUTROPHILS # (AUTO) 4.42 10*3/UL; NEUTROPHILS % (AUTO) 62.4 % (50-80); WHITE BLOOD COUNT 7.09 10^3/uL (4.8-10.8)
[2016-12-11 05:55] LABS: PLATELET MORPHOLOGY COMMENT NORMAL MORPHOLOGY (NORM)
[2016-12-11 06:02] LABS: ASPARTATE AMINO TRANSFERASE 36 IU/L (8-39); BILIRUBIN,TOTAL 0.9 mg/dL (0.3-1.2); BLOOD UREA NITROGEN 11 mg/dL (7-22); BUN/CREATININE RATIO 18.33 (6-20); CALCIUM 9.2 mg/dL (8.7-10.7); CHLORIDE 98 meq/L (98-112); CREATININE 0.6 mg/dL (0.50-1.20); EST GLOMERULAR FILTRATION > 60 (>60 ml/min/1.73m(2)); GLUCOSE 107 mg/dL (78-110); MAGNESIUM 1.7 mg/dL (1.6-2.4); SODIUM 132 meq/L (135-145); TOTAL PROTEIN 7.5 g/dL (6.1-8.0)
[2016-12-11] MEDS: OMEPRAZOLE 20 MG CAPSULE PO SCH (07:37)
[2016-12-11] MEDS: MAGNESIUM OXIDE 400 MG TABLET PO SCH ×2 (09:01→21:32)
[2016-12-11] MEDS: FLUoxetine 20 MG CAPSULE PO SCH (09:01)
[2016-12-11] MEDS: NICOTINE 21 MG /DAY PATCH TRANSDERM SCH (09:01)
[2016-12-11] MEDS: Metoprolol TARTRATE Tab 25 MG TAB PO SCH ×2 (09:01→21:31)
[2016-12-11] MEDS: AmLODIPine Tab 5 MG TABLET PO SCH (09:02)
[2016-12-11] MEDS: Patch Removal PATCH TRANSDERM SCH (09:54)
--- NOTE | 2016-12-11 11:28 | PDOC(PROG) ---
Interval History: There were little better less pain lipase trending down Objective : Data - Labs CBC and BMP: 12/11/16 05:40 12/11/16 05:40 Labs - Last 24 Hours: Laboratory Results 12/10/16 12/11/16 Range/Units 14:03 05:40 WBC 7.09 (4.8-10.8) 10^3/uL RBC 4.00 L (4.20-5.40) 10^6/uL Hgb 12.9 (12.0-16.0) g/dL Hct 37.8 (37.0-47.0) % MCV 94.5 (81-99) FL MCH 32.3 H (27-31) PG MCHC 34.1 (33-37) g/dL RDW Std Deviation 50.5 H (39-50) fL RDW Coeff of Farzad 15.0 H (11.5-14.5) % Plt Count 190 (140-350) 10*3/uL MPV 9.7 (7.4-12.2) FL Immature Gran % (Auto) 0.1 (0-5) % Neut % (Auto) 62.4 (50-80) % Lymph % (Auto) 29.8 (10-50) % [place] % (Auto) 6.9 (5-15) % Eos % (Auto) 0.7 (0-8) % Baso % (Auto) 0.1 (0-1) % Immature Gran # (Auto) 0.01 10*3/UL Neut # (Auto) 4.42 10*3/UL Lymph # (Auto) 2.11 10*3/uL [place] # (Auto) 0.49 (0.3-0.8) 10*3/UL Eos # (Auto) 0.05 10*3/UL Baso # (Auto) 0.01 10*3/UL WBC Morphology Comment Normal morphology (NORM) Plt Morphology Comment Normal morphology (NORM) RBC Morph Comment Normal morphology (NORM) Sodium 131 L 132 L (135-145) meq/L Potassium 3.6 L 4.0 (3.8-5.2) meq/L Chloride 96 L 98 (98-112) meq/L Carbon Dioxide 21 L 21 L (23-33) meq/L Anion Gap 14 13 (5-20) BUN 23 H 11 (7-22) mg/dL Creatinine 0.8 0.6 (0.50-1.20) mg/dL Estimated GFR > 60 > 60 (>60 ml/min/1.73m(2)) BUN/Creatinine Ratio 28.75 H 18.33 (6-20) Glucose 188 H 107 (78-110) mg/dL Calculated Osmolality 280.0 272.0 (267-292) mOsm/kg Calcium 8.8 9.2 (8.7-10.7) mg/dL Magnesium 1.7 (1.6-2.4) mg/dL Total Bilirubin 0.9 (0.3-1.2) mg/dL AST 36 (8-39) IU/L ALT 27 (9-52) IU/L Alkaline Phosphatase 75 (38-126) IU/L Total Protein 7.5 (6.1-8.0) g/dL Albumin 4.6 (3.5-4.8) g/dL Globulin 2.9 (2.50-4.10) g/dL Albumin/Globulin Ratio 1.50 (1.3-2.0) mg/g Lipase 1830 H* (23-300) IU/L Objective : Exam - General General Appearance: Cooperative - Respiratory Respiratory Exam: Clear to Auscultation - Bilaterally, Breathing Non Labored, Normal To Percussion - Cardiovascular Cardiovascular Exam: RRR, No Murmur, No Clicks - GI/Abdominal Additional GI/Abdominal Exam Details: Still some pain in the left lower quadrant but no guarding or rebound improved since yesterday Assessment and Plan - Patient Problems (1) Pancreatitis, acute Current Visit: Yes Status: Acute Code(s): K85.9 (2) Acute hypokalemia Current Visit: No Status: Acute (3) Anxiety Current Visit: No Status: Acute - Assessment / Plan Additional Assessment/Plan Details: #1 alcoholic pancreatitis patient is improving lipase is trending down pain is improving we will plan on doing clear liquids in the morning if pain is resolved CT scan was reviewed there is no pseudocyst or other abnormalities into the IV pain control #2 alcohol use continue CIWA scale with Ativan
[2016-12-11] MEDS ORDERED: Magnesium Sulfate 2gm (Premix) 2 GM in Premix 1 BAG IV ONE (11:30)
[2016-12-11] MEDS: ONDANSETRON 4 MG/2 ML VIAL IV PRN (12:33)
[2016-12-11] MEDS ORDERED: NALOXONE 0.4 MG/1 ML VIAL IVP ONE (22:20)
[2016-12-11] MEDS ORDERED: NALOXONE 0.4 MG/1 ML VIAL ONE (22:21)
[2016-12-12] MEDS ORDERED: FUROSEMIDE 10 MG/1 ML - 4 ML IVP ONE ×2 (06:45→12:36)
[2016-12-12] MEDS: OMEPRAZOLE 20 MG CAPSULE PO SCH (06:58)
[2016-12-12] MEDS: ONDANSETRON 4 MG/2 ML VIAL IV PRN ×2 (08:21→19:32)
[2016-12-12] MEDS: NICOTINE 21 MG /DAY PATCH TRANSDERM SCH (08:25)
[2016-12-12] MEDS: Metoprolol TARTRATE Tab 25 MG TAB PO SCH ×2 (08:25→20:34)
[2016-12-12] MEDS: MAGNESIUM OXIDE 400 MG TABLET PO SCH ×2 (08:25→20:34)
[2016-12-12] MEDS: AmLODIPine Tab 5 MG TABLET PO SCH (08:25)
[2016-12-12] MEDS: FLUoxetine 20 MG CAPSULE PO SCH (08:26)
[2016-12-12] MEDS: Patch Removal PATCH TRANSDERM SCH (09:05)
[2016-12-12] MEDS: ACETAMINOPHEN 500 MG TABLET PO PRN (09:37)
[2016-12-12] MEDS: HYDROmorphone 2 MG/1 ML IVP PRN ×3 (11:56→20:35)
[2016-12-12] MEDS: NORMAL SALINE 10 ML SYRINGE FLUSH IVP PRN ×3 (11:57→19:32)
--- NOTE | 2016-12-12 11:58 | PDOC(PROG) ---
Interval History: Patient is doing a little better still has some pain in the left lower quadrant I believe she was getting too much dialogue did and we had to give her half a dose of Narcan overnight and some Lasix she is doing quite well now satting the above 90% on 1 L we will start clear liquids today but if the pain gets worse we will keep nothing by mouth Objective : Data - Labs CBC and BMP: 12/11/16 05:40 12/11/16 05:40 Labs - Last 24 Hours: Laboratory Results 12/12/16 Range/Units 04:55 Lipase 824 H (23-300) IU/L Objective : Exam - General General Appearance: Cooperative - Head Head Exam: Normal Inspection - Eye Eye Exam: Normal Appearance - Respiratory Respiratory Exam: Clear to Auscultation - Bilaterally, Breathing Non Labored, Normal To Percussion - Cardiovascular Cardiovascular Exam: RRR, No Murmur, No Clicks, No Gallops - GI/Abdominal Additional GI/Abdominal Exam Details: Mild pain left upper quadrant still requiring IV narcotics - Extremities Extremities Exam: No Edema Present, No Cyanosis Present Assessment and Plan - Patient Problems (1) Pancreatitis, acute Current Visit: Yes Status: Acute Code(s): K85.9 (2) Acute hypokalemia Current Visit: No Status: Acute (3) Anxiety Current Visit: No Status: Acute - Assessment / Plan Additional Assessment/Plan Details: #1 pancreatitislipase is improving down to around 600 from 4000 still mild pain we will attempt liquid the clear diet today if pain and gets worse we will keep her nothing by mouth we will also decrease the amount of dialogue with we will do one to 2 every 4 hours. When necessary pain. #2 history of alcohol abuse continue CIWA a scale #3 hypokalemia and hypomagnesemia both replaced
[2016-12-13] MEDS: ACETAMINOPHEN 500 MG TABLET PO PRN (00:39)
[2016-12-13] MEDS: NORMAL SALINE 10 ML SYRINGE FLUSH IVP PRN ×7 (01:49→21:47)
[2016-12-13] MEDS: HYDROmorphone 2 MG/1 ML IVP PRN ×7 (01:49→21:47)
[2016-12-13] MEDS ORDERED: FUROSEMIDE 10 MG/1 ML - 4 ML IVP ONE (02:03)
[2016-12-13 06:24] LABS: BASOPHILS # (AUTO) 0.01 10*3/UL; BASOPHILS % (AUTO) 0.1 % (0-1); EOSINOPHILS % (AUTO) 0.6 % (0-8); HEMATOCRIT 36.8 % (37.0-47.0); HEMOGLOBIN 12.5 g/dL (12.0-16.0); IMM GRAN % (AUTO) 0.2 % (0-5); IMM GRAN# (AUTO) 0.03 10*3/UL; LYMPHOCYTES % (AUTO) 13.3 % (10-50); MEAN PLATELET VOLUME 10.7 FL (7.4-12.2); MONOCYTES # (AUTO) 0.39 10*3/UL (0.3-0.8); MONOCYTES % (AUTO) 3.2 % (5-15); NEUTROPHILS # (AUTO) 9.93 10*3/UL; NEUTROPHILS % (AUTO) 82.6 % (50-80); RED BLOOD COUNT 3.79 10^6/uL (4.20-5.40); WHITE BLOOD COUNT 12.03 10^3/uL (4.8-10.8)
[2016-12-13 06:31] LABS: PLATELET MORPHOLOGY COMMENT NORMAL MORPHOLOGY (NORM)
[2016-12-13 06:34] LABS: ASPARTATE AMINO TRANSFERASE 37 IU/L (8-39); BILIRUBIN,TOTAL 1.1 mg/dL (0.3-1.2); BLOOD UREA NITROGEN 14 mg/dL (7-22); CALCIUM 9.8 mg/dL (8.7-10.7); CHLORIDE 93 meq/L (98-112); CREATININE 0.8 mg/dL (0.50-1.20); EST GLOMERULAR FILTRATION > 60 (>60 ml/min/1.73m(2)); GLUCOSE 96 mg/dL (78-110); MAGNESIUM 1.3 mg/dL (1.6-2.4); POTASSIUM 4.4 meq/L (3.8-5.2); SODIUM 130 meq/L (135-145); TOTAL PROTEIN 7.5 g/dL (6.1-8.0)
[2016-12-13] MEDS ORDERED: Magnesium Sulfate 2gm (Premix) 2 GM in Premix 1 BAG IV ONE ×2 (08:23→10:29)
[2016-12-13] MEDS: NICOTINE 21 MG /DAY PATCH TRANSDERM SCH (08:46)
[2016-12-13] MEDS: Metoprolol TARTRATE Tab 25 MG TAB PO SCH ×2 (08:48→20:25)
[2016-12-13] MEDS: OMEPRAZOLE 20 MG CAPSULE PO SCH (08:48)
[2016-12-13] MEDS: Multivitamin Tab 1 TAB PO SCH (08:48)
[2016-12-13] MEDS: FLUoxetine 20 MG CAPSULE PO SCH (08:48)
[2016-12-13] MEDS: MAGNESIUM OXIDE 400 MG TABLET PO SCH ×2 (08:48→20:25)
[2016-12-13] MEDS: AmLODIPine Tab 5 MG TABLET PO SCH (08:48)
[2016-12-13] MEDS ORDERED: LORazepam 2 MG/1 ML VIAL IVP PRN ×2 (09:05→09:33)
--- NOTE | 2016-12-13 09:19 | EKG ---
[address] [address] Measurements Intervals [place] Rate: 93 P: 9 [place]: 154 QRS: 32 QRSD: 82 T: 57 QT: 357 QTc: 408 Interpretive Statements SINUS RHYTHM Compared to ECG 11/08/2016 11:05:18 No significant changes Electronically Signed On 12-13-16 15:25:19 MST by Glenn Chicas [email or web address]
[2016-12-13] MEDS: Patch Removal PATCH TRANSDERM SCH (09:29)
--- NOTE | 2016-12-13 10:17 | DI ---
PA /LATERAL CHEST X-RAY, 12/13/2016 8:24 AM : Clinical History: Cough. Previous Exam: 09/27/2016. There is no acute soft tissue or bony abnormality. The patient is status post ORIF of a comminuted fr acture of the neck of the right humerus. Heart size is at the upper limits of normal. There is a bila teral alveolar pattern that suggests pulmonary edema. 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 Mediastinal structures are normal. There are no pulmonary nodules. Reading: Bilateral alveolar infiltrates consistent with pulmonary edema with a relatively normal heart size. D ifferential is as above. Comment: This patient had a CT scan of the abdomen and pelvis on 12/10/2016, and the lower lung bases were included on that study and were normal at that time.
--- NOTE | 2016-12-13 11:01 | PDOC(PROG) ---
Interval History: Patient states she's been experiencing a lot of cough achy all over gets very agitated and wanting Dilaudid once she does receive it she calms down she says it helps her cough a lot and all her achiness. Abdominal pain is resolved patient states it saw her cough that is kind of bothering her she has high anxiety and states the Ativan also didn't help her very much. She also had chest pain this morning which is now gone troponin and EKG within normal limits Objective : Data - Labs CBC and BMP: 12/13/16 06:00 12/13/16 06:00 Labs - Last 24 Hours: Laboratory Results 12/13/16 12/13/16 Range/Units 06:00 09:31 WBC 12.03 H (4.8-10.8) 10^3/uL RBC 3.79 L (4.20-5.40) 10^6/uL Hgb 12.5 (12.0-16.0) g/dL Hct 36.8 L (37.0-47.0) % MCV 97.1 (81-99) FL MCH 33.0 H (27-31) PG MCHC 34.0 (33-37) g/dL RDW Std Deviation 51.0 H (39-50) fL RDW Coeff of Farzad 15.0 H (11.5-14.5) % Plt Count 131 L (140-350) 10*3/uL MPV 10.7 (7.4-12.2) FL Immature Gran % (Auto) 0.2 (0-5) % Neut % (Auto) 82.6 H (50-80) % Lymph % (Auto) 13.3 (10-50) % [place] % (Auto) 3.2 L (5-15) % Eos % (Auto) 0.6 (0-8) % Baso % (Auto) 0.1 (0-1) % Immature Gran # (Auto) 0.03 10*3/UL Neut # (Auto) 9.93 10*3/UL Lymph # (Auto) 1.60 10*3/uL [place] # (Auto) 0.39 (0.3-0.8) 10*3/UL Eos # (Auto) 0.07 10*3/UL Baso # (Auto) 0.01 10*3/UL WBC Morphology Comment Normal morphology (NORM) Plt Morphology Comment Normal morphology (NORM) RBC Morph Comment Normal morphology (NORM) Sodium 130 L (135-145) meq/L Potassium 4.4 (3.8-5.2) meq/L Chloride 93 L (98-112) meq/L Carbon Dioxide 23 (23-33) meq/L Anion Gap 14 (5-20) BUN 14 (7-22) mg/dL Creatinine 0.8 (0.50-1.20) mg/dL Estimated GFR > 60 (>60 ml/min/1.73m(2)) BUN/Creatinine Ratio 17.50 (6-20) Glucose 96 (78-110) mg/dL Calculated Osmolality 270.0 (267-292) mOsm/kg Calcium 9.8 (8.7-10.7) mg/dL Magnesium 1.3 L (1.6-2.4) mg/dL Total Bilirubin 1.1 (0.3-1.2) mg/dL AST 37 (8-39) IU/L ALT 28 (9-52) IU/L Alkaline Phosphatase 85 (38-126) IU/L Troponin I < 0.012 (< 0.040) ng/mL Total Protein 7.5 (6.1-8.0) g/dL Albumin 4.4 (3.5-4.8) g/dL Globulin 3.1 (2.50-4.10) g/dL Albumin/Globulin Ratio 1.40 (1.3-2.0) mg/g Lipase 159 (23-300) IU/L Objective : Exam - General General Appearance: No Acute Distress, Cooperative - Neck Neck Exam: Normal Inspection - Respiratory Additional Respiratory Exam Details: Decreased breath sounds at the bases no wheezing no coarse breath sounds - Cardiovascular Cardiovascular Exam: RRR, No Murmur, No Clicks, No Gallops - GI/Abdominal GI/Abdominal Exam: Normal Bowel Sounds, Soft - Extremities Extremities Exam: No Clubbing Present, No Edema Present - Neurological Neurological Exam: Alert, Oriented x 3, CN II-XII Intact - Psychiatric Psychiatric Exam: Normal Affect, Normal Mood Assessment and Plan - Patient Problems (1) Pancreatitis, acute Current Visit: Yes Status: Acute Code(s): K85.9 (2) Acute hypokalemia Current Visit: No Status: Acute (3) Anxiety Current Visit: No Status: Acute (4) Cough in adult patient Current Visit: Yes Status: Acute - Assessment / Plan Additional Assessment/Plan Details: #1 pancreatitis lipase within normal limits abdominal pain resolved we will advance diet #2 cough etiology unknown does show pulmonary edema at the lung bases on chest x -ray EKG troponins were negative differential PE we will order a BE and P and a CT scan PE protocol. I will also insert a Chandler catheter to 4 a acute output and start patient on Lasix drip #3 high anxiety and chronic painpatient is on 1 mg of that on it every 3 hours and when necessary Ativan
--- NOTE | 2016-12-13 12:05 | DI ---
CT CHEST SCAN WITH IV CONTRAST, 12/13/2016 10:28 AM : Clinical History: Abnormal chest x-ray revealing acute pulmonary edema. Previous Exam: 07/25/2016. Scans are performed from the base of the neck to the level of the adrenal glands with contrast. 45 ml of Isovue 300 was injected IV. Comment: This patient has virtually no peripheral IV access and therefore the pre-existing IV in the left hand was utilized. This precluded contrast injection with the power injector and only 45 mL of c ontrast was injected by hand. The examination was therefore converted from a CT angiogram of the ches t to a CT chest scan with IV contrast. The base of the neck and thoracic inlet are normal. There are no abnormal axillary, supraclavicular, mediastinal, or hilar nodes. The heart is normal. Bilateral diffuse patchy alveolar infiltrates are p resent without pleural effusions. The patient appears to be in no clinical respiratory distress, and the etiology of this pattern is uncertain. There is fatty infiltration of the liver. Both adrenal gla nds and the limited views of the spleen are normal. There is diffuse fatty filtration of the liver. T here is a 5 x 8 mm calculus in an upper pole calyx of the left kidney. READIN. There is a diffuse patchy alveolar infiltrate present bilaterally. The usual differential would i nclude aspiration pneumonia, acute myocardial infarction, acute renal failure, or a SURVIVAL SPECIALIST vascular acci dent. Because the patient is in no acute respiratory distress, other unusual etiologies must be consi dered. 2. Cardiomegaly. 3. Fatty infiltration of the liver. Left upper pole renal calculus.
[2016-12-13] MEDS ORDERED: Levofloxacin 750mg (Premix) 750 MG in Dextrose 1 BAG IV SCH (13:30)
[2016-12-13] MEDS: metroNIDAZOLE 500mg (Premix) 500 MG in Premix 1 BAG IV SCH (15:57)
[2016-12-13] MEDS: ONDANSETRON 4 MG/2 ML VIAL IV PRN (20:24)
[2016-12-14] MEDS: HYDROmorphone 2 MG/1 ML IVP PRN ×3 (00:34→05:53)
[2016-12-14] MEDS: metroNIDAZOLE 500mg (Premix) 500 MG in Premix 1 BAG IV SCH ×2 (00:34→07:13)
[2016-12-14] MEDS: NORMAL SALINE 10 ML SYRINGE FLUSH IVP PRN ×4 (00:35→20:28)
[2016-12-14 05:56] LABS: BASOPHILS # (AUTO) 0.01 10*3/UL; BASOPHILS % (AUTO) 0.1 % (0-1); EOSINOPHILS % (AUTO) 0.4 % (0-8); HEMATOCRIT 31.4 % (37.0-47.0); HEMOGLOBIN 10.7 g/dL (12.0-16.0); IMM GRAN % (AUTO) 0.3 % (0-5); IMM GRAN# (AUTO) 0.03 10*3/UL; LYMPHOCYTES # (AUTO) 0.97 10*3/uL; LYMPHOCYTES % (AUTO) 8.6 % (10-50); MEAN CORPUSCULAR HEMOGLOBIN 32.3 PG (27-31); MEAN CORPUSCULAR HGB CONC 34.1 g/dL (33-37); MEAN PLATELET VOLUME 10.3 FL (7.4-12.2); MONOCYTES # (AUTO) 0.71 10*3/UL (0.3-0.8); MONOCYTES % (AUTO) 6.3 % (5-15); NEUTROPHILS % (AUTO) 84.3 % (50-80); RDW COEFFICIENT OF VARIATION 14.9 % (11.5-14.5); RED BLOOD COUNT 3.31 10^6/uL (4.20-5.40); WHITE BLOOD COUNT 11.26 10^3/uL (4.8-10.8)
[2016-12-14 06:00] LABS: PLATELET MORPHOLOGY COMMENT NORMAL MORPHOLOGY (NORM)
[2016-12-14 06:13] LABS: ASPARTATE AMINO TRANSFERASE 30 IU/L (8-39); BILIRUBIN,TOTAL 1.2 mg/dL (0.3-1.2); BLOOD UREA NITROGEN 18 mg/dL (7-22); CALCIUM 9.4 mg/dL (8.7-10.7); CHLORIDE 86 meq/L (98-112); CREATININE 0.9 mg/dL (0.50-1.20); EST GLOMERULAR FILTRATION > 60 (>60 ml/min/1.73m(2)); GLUCOSE 118 mg/dL (78-110); MAGNESIUM 1.4 mg/dL (1.6-2.4); POTASSIUM 3.3 meq/L (3.8-5.2); SODIUM 125 meq/L (135-145); TOTAL PROTEIN 7.1 g/dL (6.1-8.0)
[2016-12-14] MEDS: OMEPRAZOLE 20 MG CAPSULE PO SCH (07:13)
[2016-12-14] MEDS ORDERED: Magnesium Sulfate 4gm (Premix) 4 GM in Premix 1 BAG IV ONE (08:35)
[2016-12-14] MEDS: AmLODIPine Tab 5 MG TABLET PO SCH (09:45)
[2016-12-14] MEDS: Multivitamin Tab 1 TAB PO SCH (09:45)
[2016-12-14] MEDS: Metoprolol TARTRATE Tab 25 MG TAB PO SCH ×2 (09:45→20:29)
[2016-12-14] MEDS: NICOTINE 21 MG /DAY PATCH TRANSDERM SCH (09:45)
[2016-12-14] MEDS: FLUoxetine 20 MG CAPSULE PO SCH (09:45)
[2016-12-14] MEDS: Patch Removal PATCH TRANSDERM SCH (10:06)
[2016-12-14] MEDS ORDERED: Potassium Chloride 20 mEq 20 MEQ in Premix 1 BAG IV ONE ×2 (10:26→13:00)
[2016-12-14] MEDS ORDERED: Sodium Chloride 0.9% 500 ML PRIMARY IV PRN (11:17)
[2016-12-14] MEDS: oxyCODONE IR Tab 5 MG TAB PO PRN ×2 (11:28→15:09)
[2016-12-14] MEDS: Prometh/Codeine Liquid 10/6.25 MG/5 ML ORAL.SYRIN PO PRN ×3 (12:35→21:19)
--- NOTE | 2016-12-14 13:23 | PDOC(PROG) ---
Date and Time of Service: 12/14/2016, 1318 Interval History: Complained of pain in her chest she breathes and also complains of cough. States her abdominal pain is resolved. Still feels nausea. No abdominal pain. Her chest x-ray and CT scan showed diffuse alveolar infiltrates which could be consistent with acute lung disease or acute lung injury. I spoke with the checker specialist in [place], and it was suggested continue antibiotic therapy and if the patient's worse consider transfer if she is needing a bronchoscopy for further evaluation. It was also recommended to keep the patient's I's and O's about even. Objective : Data - Labs CBC and BMP: 12/14/16 05:19 12/14/16 05:19 Labs - Last 24 Hours: Laboratory Results 12/14/16 Range/Units 05:19 WBC 11.26 H (4.8-10.8) 10^3/uL RBC 3.31 L (4.20-5.40) 10^6/uL Hgb 10.7 L (12.0-16.0) g/dL Hct 31.4 L (37.0-47.0) % MCV 94.9 (81-99) FL MCH 32.3 H (27-31) PG MCHC 34.1 (33-37) g/dL RDW Std Deviation 50.3 H (39-50) fL RDW Coeff of Farzad 14.9 H (11.5-14.5) % Plt Count 119 L (140-350) 10*3/uL MPV 10.3 (7.4-12.2) FL Immature Gran % (Auto) 0.3 (0-5) % Neut % (Auto) 84.3 H (50-80) % Lymph % (Auto) 8.6 L (10-50) % [place] % (Auto) 6.3 (5-15) % Eos % (Auto) 0.4 (0-8) % Baso % (Auto) 0.1 (0-1) % Immature Gran # (Auto) 0.03 10*3/UL Neut # (Auto) 9.50 10*3/UL Lymph # (Auto) 0.97 10*3/uL [place] # (Auto) 0.71 (0.3-0.8) 10*3/UL Eos # (Auto) 0.04 10*3/UL Baso # (Auto) 0.01 10*3/UL WBC Morphology Comment Normal morphology (NORM) Plt Morphology Comment Normal morphology (NORM) RBC Morph Comment Normal morphology (NORM) Sodium 125 L (135-145) meq/L Potassium 3.3 L D (3.8-5.2) meq/L Chloride 86 L (98-112) meq/L Carbon Dioxide 25 (23-33) meq/L Anion Gap 14 (5-20) BUN 18 (7-22) mg/dL Creatinine 0.9 (0.50-1.20) mg/dL Estimated GFR > 60 (>60 ml/min/1.73m(2)) BUN/Creatinine Ratio 20.00 (6-20) Glucose 118 H (78-110) mg/dL Calculated Osmolality 262.0 L (267-292) mOsm/kg Calcium 9.4 (8.7-10.7) mg/dL Magnesium 1.4 L (1.6-2.4) mg/dL Total Bilirubin 1.2 (0.3-1.2) mg/dL AST 30 (8-39) IU/L ALT 32 (9-52) IU/L Alkaline Phosphatase 89 (38-126) IU/L Total Protein 7.1 (6.1-8.0) g/dL Albumin 4.0 (3.5-4.8) g/dL Globulin 3.1 (2.50-4.10) g/dL Albumin/Globulin Ratio 1.20 L (1.3-2.0) mg/g - Imaging CT Scan Status: Image Reviewed by Me (I reviewed the CT scan, the patient has diffuse infiltrates. I noticed the same pattern on chest.) Objective : Exam - General General Appearance: No Acute Distress, Cooperative Additional General Exam Details: Vital Signs - Last Taken Temperature 97.4 F 12/14/16 11:08 Pulse Rate 70 12/14/16 11:08 Respiratory Rate 20 12/14/16 11:08 Blood Pressure 103/48 12/14/16 11:08 Pulse Ox 98 12/14/16 11:08 Currently on 3-4 L nasal cannula - Eye Eye Exam: No Scleral Icterus - Respiratory Respiratory Exam: Breathing Non Labored, Decreased Breath Sounds - Cardiovascular Cardiovascular Exam: RRR, No Murmur, No Clicks, No Gallops, No Rubs, No JVD - GI/Abdominal GI/Abdominal Exam: Normal Bowel Sounds, Non Tender, Non Distended, Soft - Extremities Extremities Exam: No Clubbing Present, No Edema Present, No Cyanosis Present Additional Extremities Exam Details: Right shoulder is in a sling with postoperative stabilization. I may discuss with orthopedics tomorrow to see if the patient should start therapy anytime soon. - Neurological Neurological Exam: Alert, Oriented x 3, No Facial Droop, Speech Intact / Clear, Moves All Extremities Equally - Psychiatric Psychiatric Exam: Anxious, Agitated Assessment and Plan - Patient Problems (1) Acute lung injury Current Visit: Yes Status: Acute Qualifiers: Encounter type: initial encounter Qualified Description: Acute lung injury, initial encounter Qualifier Code(s): (S27.309A) Unspecified injury of lung, unspecified, initial encounter (2) Hypertension Current Visit: No Status: Acute (3) Hypokalemia Current Visit: No Status: Acute (4) Hypomagnesemia Current Visit: No Status: Acute (5) Hyponatremia Current Visit: No Status: Acute (6) Pancreatitis, alcoholic, acute Current Visit: No Status: Acute Qualifiers: Acute pancreatitis complication: no infection or necrosis Qualified Description: Alcohol-induced acute pancreatitis without infection or necrosis Qualifier Code(s): (K85.20) Alcohol induced acute pancreatitis without necrosis or infection (7) Alcoholic Current Visit: No Status: Chronic - Assessment / Plan Additional Assessment/Plan Details: For now, treat as if this could be an aspiration event though none was witnessed to my knowledge. Continue oxygen and supportive care. Keep I's and O's balance. Stop Lasix drip. Stop IV Dilaudid and switch to by mouth oxycodone when necessary as well as Phenergan with codeine for cough. Replace the lites and recheck later today. Order chest x-ray for tomorrow. The patient's worse, may need to consider transfer for consideration of bronchoscopy.
[2016-12-14] MEDS: ALBUTEROL SULFATE 2.5 MG/3 ML NEB PRN (14:09)
[2016-12-14] MEDS: LORazepam 2 MG/1 ML VIAL IVP PRN ×2 (15:09→20:14)
[2016-12-14] MEDS ORDERED: Levofloxacin 750mg (Premix) 750 MG in Dextrose 1 BAG IV SCH (17:00)
[2016-12-14] MEDS ORDERED: Pantoprazole Inj 40 MG in Normal Saline Flush 10 ML IVP ONE (18:01)
[2016-12-14] MEDS: Pantoprazole Inj 40 MG in Normal Saline Flush 10 ML IVP SCH (20:28)
[2016-12-14] MEDS: oxyCODONE/APAP 7.5/325 Tab 1 TAB TAB PO PRN (20:29)
[2016-12-14] MEDS ORDERED: DIAZEPAM 10 MG/2 ML (5 MG/1 ML) CARPUJECT IVP ONE (23:50)
[2016-12-15] MEDS ORDERED: DIAZEPAM 10 MG/2 ML (5 MG/1 ML) CARPUJECT ONE (00:05)
[2016-12-15] MEDS: GUAIFENESIN/DM 5 ML UD CUP PO SCH ×7 (00:43→23:08)
[2016-12-15] MEDS: oxyCODONE/APAP 7.5/325 Tab 1 TAB TAB PO PRN (01:10)
[2016-12-15] MEDS: LORazepam 2 MG/1 ML VIAL IVP PRN ×2 (04:28→08:30)
[2016-12-15] MEDS: Thiamine Tab 100 MG TAB PO SCH ×2 (04:29→08:33)
[2016-12-15 05:40] LABS: BASOPHILS # (AUTO) 0.01 10*3/UL; BASOPHILS % (AUTO) 0.1 % (0-1); EOSINOPHILS % (AUTO) 1.4 % (0-8); HEMATOCRIT 29.6 % (37.0-47.0); HEMOGLOBIN 10.1 g/dL (12.0-16.0); IMM GRAN % (AUTO) 0.2 % (0-5); IMM GRAN# (AUTO) 0.02 10*3/UL; LYMPHOCYTES # (AUTO) 1.06 10*3/uL; LYMPHOCYTES % (AUTO) 13.2 % (10-50); MEAN CORPUSCULAR HEMOGLOBIN 32.3 PG (27-31); MEAN CORPUSCULAR HGB CONC 34.1 g/dL (33-37); MEAN PLATELET VOLUME 10.6 FL (7.4-12.2); MONOCYTES # (AUTO) 0.53 10*3/UL (0.3-0.8); MONOCYTES % (AUTO) 6.6 % (5-15); NEUTROPHILS # (AUTO) 6.29 10*3/UL; NEUTROPHILS % (AUTO) 78.5 % (50-80); RDW COEFFICIENT OF VARIATION 15.1 % (11.5-14.5); RED BLOOD COUNT 3.13 10^6/uL (4.20-5.40); WHITE BLOOD COUNT 8.02 10^3/uL (4.8-10.8)
[2016-12-15 05:41] LABS: PLATELET MORPHOLOGY COMMENT NORMAL MORPHOLOGY (NORM)
[2016-12-15 05:52] LABS: ASPARTATE AMINO TRANSFERASE 24 IU/L (8-39); BLOOD UREA NITROGEN 15 mg/dL (7-22); BUN/CREATININE RATIO 21.42 (6-20); CALCIUM 9.1 mg/dL (8.7-10.7); CHLORIDE 92 meq/L (98-112); CREATININE 0.7 mg/dL (0.50-1.20); EST GLOMERULAR FILTRATION > 60 (>60 ml/min/1.73m(2)); GLUCOSE 93 mg/dL (78-110); POTASSIUM 3.2 meq/L (3.8-5.2); SODIUM 126 meq/L (135-145); TOTAL PROTEIN 6.4 g/dL (6.1-8.0)
--- NOTE | 2016-12-15 08:25 | DI ---
AP CHEST X-RAY, 12/15/2016 7:00 AM : Clinical History: Alveolar infiltrates. Previous Exam: 12/13/2016. On this view the patient took a very shallow inspiration. Heart size is normal for this degree of ins piration. The bilateral alveolar infiltrates are symmetric and are primarily confined to the lower belen ng redman. Owing to the difference in the level of inspiration, and the portable technique, there pro bably has been no significant interval change. Reading: The bilateral infiltrates persist. The exact etiology still is uncertain.
[2016-12-15] MEDS: Pantoprazole Inj 40 MG in Normal Saline Flush 10 ML IVP SCH ×2 (08:28→21:15)
[2016-12-15] MEDS: NICOTINE 21 MG /DAY PATCH TRANSDERM SCH (08:32)
[2016-12-15] MEDS: Multivitamin Tab 1 TAB PO SCH (08:32)
[2016-12-15] MEDS: AmLODIPine Tab 5 MG TABLET PO SCH (08:32)
[2016-12-15] MEDS: FLUoxetine 20 MG CAPSULE PO SCH (08:33)
[2016-12-15] MEDS: Metoprolol TARTRATE Tab 25 MG TAB PO SCH ×2 (08:33→20:40)
[2016-12-15] MEDS: Patch Removal PATCH TRANSDERM SCH (08:54)
[2016-12-15] MEDS ORDERED: Levofloxacin 750mg (Premix) 750 MG in Dextrose 1 BAG IV SCH (09:00)
[2016-12-15] MEDS ORDERED: Magnesium Sulfate 4gm (Premix) 4 GM in Premix 1 BAG IV ONE (10:10)
[2016-12-15] MEDS ORDERED: Potassium Chloride 20 mEq 20 MEQ in Premix 1 BAG IV ONE (10:10)
[2016-12-15] MEDS ORDERED: POTASSIUM CHLORIDE 20 MEQ TAB PO ONE (10:10)
[2016-12-15] MEDS ORDERED: LIDOCAINE 2% 20 MG/ML - 20 ML VIAL SUBCUT PRN (13:51)
[2016-12-15] MEDS ORDERED: Lidocaine 1% 10 MG/ML - 20 ML VIAL SUBCUT PRN (13:51)
--- NOTE | 2016-12-15 14:34 | PDOC(PROG) ---
Date and Time of Service: 12/15/2016, 1430 Interval History: Had a very difficult night with hallucinations, delirium. No chest pain. She states her cough and her pleuritic pain are better. She still requiring 3-4 L per nasal cannula and when she gets very anxious sometimes that requirement goes up as high as 10 L per mask. She was disoriented this morning but is much better after some sleep today. I think she had adverse reactions to codeine, Levaquin, and oxycodone with altered mental status. Those medications have been stopped and listed under the patient's allergies and adverse reactions. Objective : Data - Labs CBC and BMP: 12/15/16 05:20 12/15/16 05:20 Labs - Last 24 Hours: Laboratory Results 12/15/16 12/15/16 Range/Units 05:13 05:20 WBC 8.02 (4.8-10.8) 10^3/uL RBC 3.13 L (4.20-5.40) 10^6/uL Hgb 10.1 L (12.0-16.0) g/dL Hct 29.6 L (37.0-47.0) % MCV 94.6 (81-99) FL MCH 32.3 H (27-31) PG MCHC 34.1 (33-37) g/dL RDW Std Deviation 50.0 (39-50) fL RDW Coeff of Farzad 15.1 H (11.5-14.5) % Plt Count 140 (140-350) 10*3/uL MPV 10.6 (7.4-12.2) FL Immature Gran % (Auto) 0.2 (0-5) % Neut % (Auto) 78.5 (50-80) % Lymph % (Auto) 13.2 (10-50) % [place] % (Auto) 6.6 (5-15) % Eos % (Auto) 1.4 (0-8) % Baso % (Auto) 0.1 (0-1) % Immature Gran # (Auto) 0.02 10*3/UL Neut # (Auto) 6.29 10*3/UL Lymph # (Auto) 1.06 10*3/uL [place] # (Auto) 0.53 (0.3-0.8) 10*3/UL Eos # (Auto) 0.11 10*3/UL Baso # (Auto) 0.01 10*3/UL WBC Morphology Comment Normal morphology (NORM) Plt Morphology Comment Normal morphology (NORM) RBC Morph Comment Normal morphology (NORM) VBG pH 7.51 H (7.32-7.42) VBG pCO2 27 L (45-55) mmHg VBG HCO3 22 (22-26) mmol/L VBG Base Excess -1 (-2-2) MMOL/L Sodium 126 L (135-145) meq/L Potassium 3.2 L (3.8-5.2) meq/L Chloride 92 L (98-112) meq/L Carbon Dioxide 24 (23-33) meq/L Anion Gap 10 (5-20) BUN 15 (7-22) mg/dL Creatinine 0.7 (0.50-1.20) mg/dL Estimated GFR > 60 (>60 ml/min/1.73m(2)) BUN/Creatinine Ratio 21.42 H (6-20) Glucose 93 (78-110) mg/dL Calculated Osmolality 262.0 L (267-292) mOsm/kg Calcium 9.1 (8.7-10.7) mg/dL Total Bilirubin 1.0 (0.3-1.2) mg/dL AST 24 (8-39) IU/L ALT 31 (9-52) IU/L Alkaline Phosphatase 77 (38-126) IU/L Ammonia 18 (9.0-33.0) UMOL/L NT-Pro-B Natriuret Pep 696 H (0-125) PG/ML Total Protein 6.4 (6.1-8.0) g/dL Albumin 3.6 (3.5-4.8) g/dL Globulin 2.9 (2.50-4.10) g/dL Albumin/Globulin Ratio 1.20 L (1.3-2.0) mg/g Objective : Exam - General General Appearance: No Acute Distress, Cooperative Additional General Exam Details: Vital Signs - Last Taken Temperature 98.8 F 12/15/16 13:00 Pulse Rate 85 12/15/16 13:00 Respiratory Rate 18 12/15/16 13:00 Blood Pressure 102/53 12/15/16 13:00 Pulse Ox 92 12/15/16 13:00 - Head Head Exam: Normal Inspection, Normocephalic, Atraumatic - Eye Eye Exam: No Scleral Icterus - Respiratory Respiratory Exam: Breathing Non Labored, Decreased Breath Sounds - Cardiovascular Cardiovascular Exam: RRR, No Murmur, No Clicks, No Gallops, No Rubs, No JVD - GI/Abdominal GI/Abdominal Exam: Normal Bowel Sounds, Non Tender, Non Distended, Soft - Extremities Extremities Exam: No Clubbing Present, No Edema Present Additional Extremities Exam Details: Right shoulder in sling due to rotator cuff surgery recently. She 6 weeks out now and according to her last orthopedic note, yesterday would be the day that she could come out of the sling. - Neurological Neurological Exam: Alert, Oriented x 3, No Facial Droop, Speech Intact / Clear Assessment and Plan - Patient Problems (1) Acute lung injury Current Visit: Yes Status: Acute Qualifiers: Encounter type: initial encounter Qualified Description: Acute lung injury, initial encounter Qualifier Code(s): (S27.309A) Unspecified injury of lung, unspecified, initial encounter (2) Hypertension Current Visit: No Status: Acute (3) Hypokalemia Current Visit: Yes Status: Acute (4) Hypomagnesemia Current Visit: Yes Status: Acute (5) Hyponatremia Current Visit: Yes Status: Acute (6) Pancreatitis, alcoholic, acute Current Visit: Yes Status: Resolved Qualifiers: Acute pancreatitis complication: no infection or necrosis Qualified Description: Alcohol-induced acute pancreatitis without infection or necrosis Qualifier Code(s): (K85.20) Alcohol induced acute pancreatitis without necrosis or infection (7) Alcoholic Current Visit: No Status: Chronic - Assessment / Plan Additional Assessment/Plan Details: Stopped codeine, oxycodone, Levaquin. I'm hoping to hold off on pain medications because of the significant adverse effects this patient has. I was told by respiratory therapy that she had hypoxia with Dilaudid a couple of nights ago, and she had severe hallucinations and disorientation last night. I spoke with her dad yesterday, at bedside, the patient was drinking all through October, up to a fifth a day of alcohol. He states that she has not had as much alcohol in November. I don't think she's having withdrawal from medications at this point. I think we need to continue to titrate the Ativan and hopefully discontinue it here soon. If she continues to exhibit signs of generalized anxiety and panic attacks, we can always consider Klonopin. Continue oxygen therapy and therapy for possible aspiration, but change from Levaquin to Rocephin and Flagyl. I think the Levaquin caused hallucinations as well. Check labs tomorrow. Access is been difficult and I offered the patient a PICC line and disclosed the risks and benefits and she agreed. I don't think the patient is worse or better today, but about par for the course. Therefore, continue to monitor here as it was explained to me that a bronchoscopy might not really change the direction of therapy at this point.
[2016-12-15] MEDS: ACETAMINOPHEN 500 MG TABLET PO PRN ×2 (15:45→20:40)
[2016-12-15] MEDS: ClonazePAM Tab 1 MG TABLET PO PRN ×2 (15:46→23:45)
--- NOTE | 2016-12-15 18:19 | DI ---
ULTRASOUND GUIDED VENOUS ACCESS, 12/15/2016 1:51 PM Clinical History: Acute lung injury. The patient has pulmonary edema. There is no accessible peripher al IV access site. Previous Exam: None at this facility. 2D ultrasound was used to identify the left basilic vein for venous access to place a PICC line. The puncture site was prepped with ChloraPrep with Tint and draped in the usual sterile fashion. This vei n was successfully cannulated using realtime ultrasound guidance. The introducer sheath was advanced and positioned without difficulty. Reading: Successful and uncomplicated cannulation of the left basilic vein.
--- NOTE | 2016-12-15 18:27 | DI ---
AP CHEST X-RAY, 12/15/2016 1:51 PM : Clinical History: Acute pulmonary injury. Pulmonary edema. The patient has no peripheral IV access si te. Verification of PICC line catheter tip. Previous Exam: 12/15/2016, at 0656 hours. The pulmonary edema pattern appears worse than on the earlier study. The cardiomediastinal silhouette is within normal limits. The catheter tip is at the junction of the left brachiocephalic vein and maloney perior vena cava. Earlier attempts to advance this catheter into the distal superior vena cava result ed in the catheter traversing the right subclavian vein. Readin. Bilateral pulmonary edema pattern, and this appears worse than that seen earlier this morning. 2. The catheter tip is positioned at the junction of the superior vena cava and left brachiocephalic vein.
--- NOTE | 2016-12-15 18:27 | DI ---
INSERTION OF PICC LINE, 12/15/2016 1:51 PM: Clinical History: Acute pulmonary injury. Pulmonary edema. The patient has no peripheral IV access si te. Technique: A "time out" session was performed to verify the patient's name and date of prior to obtaining informed signed consent prior for this procedure. The left arm was prepped with ChloraPrep with Tint. Venipuncture was achieved under sterile conditions as already described in the ultrasound report. A 4 [place] double lumen Bard Power Picc Solo PICC catheter was inserted without difficulty. The tip position was initially identified with an AP portable chest x-ray and then adjusted as necess leonie. The standard dry sterile dressing kit was used to secure the catheter. The patient tolerated the procedure well and was discharged to the [facility] in stable condition. Standard orders for wound care and dressing changes were written. Interpretive Program Coordinator: Anton Keita MD Radio Journalist: None. Complications/Medications: None. Reading: PICC line placement as above.
[2016-12-15] MEDS: metroNIDAZOLE 500mg (Premix) 500 MG in Premix 1 BAG IV SCH ×2 (19:02→19:55)
[2016-12-15] MEDS: cefTRIAXone Inj 2 GM in Sodium Chloride 0.9% 100 ML IV SCH (19:11)
[2016-12-15] MEDS: NORMAL SALINE 10 ML SYRINGE FLUSH IV PRN ×2 (19:12→21:16)
[2016-12-15] MEDS: HEPARIN 500 UNIT/5 ML SYRINGE FOR CENTRAL LINE IVP PRN ×2 (20:41→21:11)
[2016-12-15] MEDS ORDERED: QUEtiapine Tab 25 MG TAB PO SCH (21:00)
[2016-12-16] MEDS: ACETAMINOPHEN 500 MG TABLET PO PRN ×3 (01:09→21:07)
[2016-12-16] MEDS: GUAIFENESIN/DM 5 ML UD CUP PO SCH ×6 (03:35→23:11)
[2016-12-16] MEDS: metroNIDAZOLE 500mg (Premix) 500 MG in Premix 1 BAG IV SCH ×3 (03:37→19:08)
[2016-12-16] MEDS: NORMAL SALINE 10 ML SYRINGE FLUSH IVP PRN ×2 (03:38→11:10)
[2016-12-16] MEDS: HEPARIN 500 UNIT/5 ML SYRINGE FOR CENTRAL LINE IVP PRN (04:59)
[2016-12-16 05:46] LABS: BLOOD UREA NITROGEN 10 mg/dL (7-22); BUN/CREATININE RATIO 16.66 (6-20); CHLORIDE 100 meq/L (98-112); CREATININE 0.6 mg/dL (0.50-1.20); EST GLOMERULAR FILTRATION > 60 (>60 ml/min/1.73m(2)); GLUCOSE 104 mg/dL (78-110); MAGNESIUM 2.2 mg/dL (1.6-2.4); POTASSIUM 3.1 meq/L (3.8-5.2); SODIUM 132 meq/L (135-145)
[2016-12-16] MEDS ORDERED: FUROSEMIDE 10 MG/1 ML - 4 ML IVP ONE (05:50)
[2016-12-16] MEDS: NORMAL SALINE 10 ML SYRINGE FLUSH IV PRN (06:00)
[2016-12-16] MEDS: ALBUTEROL SULFATE 2.5 MG/3 ML NEB PRN (07:09)
--- NOTE | 2016-12-16 08:20 | EKG ---
[address] [address] Measurements Intervals [place] Rate: 92 P: 6 HI: 166 QRS: 43 QRSD: 89 T: 60 QT: 379 QTc: 429 Interpretive Statements SINUS RHYTHM POSSIBLE LEFT ATRIAL ENLARGEMENT Compared to ECG 12/13/2016 09:19:39 No significant changes Electronically Signed On 12-16-16 15:22:04 MST by Glenn Chicas [email or web address]
[2016-12-16] MEDS: Pantoprazole Inj 40 MG in Normal Saline Flush 10 ML IVP SCH ×2 (09:02→21:00)
[2016-12-16] MEDS: NICOTINE 21 MG /DAY PATCH TRANSDERM SCH (09:03)
[2016-12-16] MEDS: FLUoxetine 20 MG CAPSULE PO SCH (09:07)
[2016-12-16] MEDS: Thiamine Tab 100 MG TAB PO SCH (09:07)
[2016-12-16] MEDS: Metoprolol TARTRATE Tab 25 MG TAB PO SCH ×2 (09:07→21:00)
[2016-12-16] MEDS: Multivitamin Tab 1 TAB PO SCH (09:07)
[2016-12-16] MEDS: Patch Removal PATCH TRANSDERM SCH (09:07)
[2016-12-16] MEDS ORDERED: Potassium Chloride 20 mEq 20 MEQ in Premix 1 BAG IV ONE ×3 (11:02→15:35)
[2016-12-16] MEDS: FUROSEMIDE 10 MG/1 ML - 4 ML IVP SCH (13:10)
[2016-12-16 13:43] LABS: BILIRUBIN,URINE NEGATIVE (NEG); CLARITY,URINE CLEAR (CLEAR); GLUCOSE, URINE (UA) NEGATIVE (NEG); LEUKOCYTE ESTERASE ,URINE NEGATIVE (NEG); NITRATE,URINE NEGATIVE (NEG); OCCULT BLOOD,URINE NEGATIVE (NEG); PROTEIN,URINE TRACE mg/dl (NEG)
[2016-12-16 13:44] LABS: URINE SAMPLE TYPE CATH SPECIMEN
--- NOTE | 2016-12-16 14:19 | PDOC(PROG) ---
Date and Time of Service: 12/16/2016, 1415 Interval History: Patient states that she still has pain with breathing, but she states it's better today. I offered her transport to [facility] again for pulmonology evaluation and possible bronchoscopy, but the patient refuses. No nausea or vomiting and no abdominal pain. Patient was able to eat yesterday. Has been sleeping a little bit better but still erratic and still very anxious. Objective : Data - Labs CBC and BMP: 12/15/16 05:20 12/16/16 05:18 Labs - Last 24 Hours: Laboratory Results 12/16/16 12/16/16 12/16/16 Range/Units 05:18 13:23 13:24 Sodium 132 L D (135-145) meq/L Potassium 3.1 L (3.8-5.2) meq/L Chloride 100 (98-112) meq/L Carbon Dioxide 23 (23-33) meq/L Anion Gap 9 (5-20) BUN 10 (7-22) mg/dL Creatinine 0.6 (0.50-1.20) mg/dL Estimated GFR > 60 (>60 ml/min/1.73m(2)) BUN/Creatinine Ratio 16.66 (6-20) Glucose 104 (78-110) mg/dL Calculated Osmolality 272.0 (267-292) mOsm/kg Uric Acid 5.2 (2.5-7.5) mg/dl Calcium 9.0 (8.7-10.7) mg/dL Magnesium 2.2 (1.6-2.4) mg/dL Troponin I < 0.012 (< 0.040) ng/mL Ur Collection Type Cath specimen Urine Color Yellow Urine Clarity Clear (CLEAR) Urine pH 7.0 (5.0-8.5) Ur Specific [place] 1.015 (1.005-1.030) Urine Protein Trace (NEG) mg/dl Urine Glucose (UA) Negative (NEG) mg/dL Urine Ketones Negative (NEG) Urine Occult Blood Negative (NEG) Urine Nitrate Negative (NEG) Urine Bilirubin Negative (NEG) Urine Urobilinogen 1.0 (0.2) EU/dL Ur Leukocyte Esterase Negative (NEG) Ur Culture Indicated? Culture not set Objective : Exam - General General Appearance: No Acute Distress, Cooperative Additional General Exam Details: Vital Signs - Last Taken Temperature 98.8 F 12/16/16 12:29 Pulse Rate 82 12/16/16 12:29 Respiratory Rate 44 H 12/16/16 12:29 Blood Pressure 132/75 12/16/16 12:29 Pulse Ox 94 12/16/16 12:29 She is on 4 L per nasal cannula now. Cough seems more productive with clear phlegm. - Eye Eye Exam: No Scleral Icterus - Respiratory Respiratory Exam: Breathing Non Labored, Decreased Breath Sounds (The bases bilaterally have decreased breath sounds. Otherwise patient does not really labored on my exam today. She goes through episodes where she has more anxiousness and has some hyperventilation I think due to anxiety more than anything.) - Cardiovascular Cardiovascular Exam: RRR, No Murmur, No Clicks, No Gallops, No Rubs, No JVD - GI/Abdominal GI/Abdominal Exam: Normal Bowel Sounds, Non Tender, Non Distended, Soft - Extremities Extremities Exam: No Clubbing Present, No Edema Present, No Cyanosis Present - Neurological Neurological Exam: Alert, Oriented x 3, No Facial Droop, Speech Intact / Clear, Moves All Extremities Equally - Psychiatric Psychiatric Exam: Anxious, Agitated Assessment and Plan - Patient Problems (1) Acute lung injury Current Visit: Yes Status: Acute Comment: Question alveolar hemorrhage versus fluid overload versus other. The patient does have bloody noses every time she blows her nose but is not having hemoptysis. UA was negative for any blood. I caitlin a whole series of vasculitis and lupus blood work to determine whether or not this could be the underlying cause of things. She refuses transport [facility] for further pulmonology evaluation. She refuses transport anywhere. Qualifiers: Encounter type: initial encounter Qualified Description: Acute lung injury, initial encounter Qualifier Code(s): (S27.309A) Unspecified injury of lung, unspecified, initial encounter (2) Hypertension Current Visit: Yes Status: Acute Qualifiers: Hypertension type: essential hypertension Qualified Description: Essential hypertension Qualifier Code(s): (I10) Essential (primary) hypertension (3) Hypokalemia Current Visit: Yes Status: Acute Comment: Magnesium is finally replaced, so hopefully potassium will start to improve through the day. We now have a PICC line to monitor more carefully and replace more aggressively. (4) Hypomagnesemia Current Visit: Yes Status: Resolved (5) Hyponatremia Current Visit: Yes Status: Acute (6) Pancreatitis, alcoholic, acute Current Visit: Yes Status: Resolved Qualifiers: Acute pancreatitis complication: no infection or necrosis Qualified Description: Alcohol-induced acute pancreatitis without infection or necrosis Qualifier Code(s): (K85.20) Alcohol induced acute pancreatitis without necrosis or infection (7) Alcoholic Current Visit: Yes Status: Chronic Comment: She states she's been off of alcohol since November. Her father collaborates his history. Her blood alcohol was negative on this admission, and if that's the case, and the truth is being told, then there could be other reasons for this pancreatitis. Question vasculitic complication (vasculitis) or autoimmune pancreatitis as well. - Assessment / Plan Additional Assessment/Plan Details: Patient's a little fluid ahead and put out 1300 mL of fluid today so I'll give another dose of Lasix. Continue antibiotics, day #3 Oxygen and breathing therapies as necessary And sent to spirometry Start blood work for vasculitis workup.
[2016-12-16] MEDS ORDERED: Acetaminophen 1000mg Inj 1,000 MG in Premix 1 BAG IV ONE (14:24)
[2016-12-16] MEDS: ClonazePAM Tab 1 MG TABLET PO PRN (14:36)
[2016-12-16] MEDS: BENZONATATE 100 MG CAPSULE PO SCH ×2 (14:37→21:01)
[2016-12-16] MEDS ORDERED: SODIUM CHLORIDE 44 ML SPRAY ENOS PRN (18:47)
[2016-12-16] MEDS: cefTRIAXone Inj 2 GM in Sodium Chloride 0.9% 100 ML IV SCH (19:08)
[2016-12-16] MEDS: QUEtiapine Tab 25 MG TAB PO SCH (21:01)
[2016-12-17] MEDS: metroNIDAZOLE 500mg (Premix) 500 MG in Premix 1 BAG IV SCH ×3 (03:11→20:15)
[2016-12-17] MEDS: GUAIFENESIN/DM 5 ML UD CUP PO SCH ×6 (03:11→22:55)
[2016-12-17] MEDS: HEPARIN 500 UNIT/5 ML SYRINGE FOR CENTRAL LINE IVP PRN ×2 (03:12→22:02)
[2016-12-17 06:02] LABS: BASOPHILS # (AUTO) 0.03 10*3/UL; BASOPHILS % (AUTO) 0.3 % (0-1); EOSINOPHILS % (AUTO) 1.3 % (0-8); HEMOGLOBIN 10.3 g/dL (12.0-16.0); IMM GRAN % (AUTO) 1.1 % (0-5); LYMPHOCYTES # (AUTO) 1.64 10*3/uL; LYMPHOCYTES % (AUTO) 18.3 % (10-50); MEAN CORPUSCULAR HEMOGLOBIN 32.9 PG (27-31); MEAN CORPUSCULAR HGB CONC 34.3 g/dL (33-37); MEAN PLATELET VOLUME 9.5 FL (7.4-12.2); MONOCYTES # (AUTO) 0.49 10*3/UL (0.3-0.8); MONOCYTES % (AUTO) 5.5 % (5-15); NEUTROPHILS # (AUTO) 6.56 10*3/UL; NEUTROPHILS % (AUTO) 73.5 % (50-80); RDW COEFFICIENT OF VARIATION 15.7 % (11.5-14.5); RED BLOOD COUNT 3.13 10^6/uL (4.20-5.40); WHITE BLOOD COUNT 8.94 10^3/uL (4.8-10.8)
[2016-12-17 06:10] LABS: PLATELET MORPHOLOGY COMMENT NORMAL MORPHOLOGY (NORM)
[2016-12-17 06:13] LABS: PROTHROMBIN TIME 12.4 secs (9.7-11.4)
[2016-12-17 06:21] LABS: BLOOD UREA NITROGEN 9 mg/dL (7-22); CALCIUM 9.2 mg/dL (8.7-10.7); CHLORIDE 99 meq/L (98-112); CREATININE 0.5 mg/dL (0.50-1.20); EST GLOMERULAR FILTRATION > 60 (>60 ml/min/1.73m(2)); GLUCOSE 112 mg/dL (78-110); POTASSIUM 3.2 meq/L (3.8-5.2); SODIUM 133 meq/L (135-145)
[2016-12-17 06:36] LABS: C-REACTIVE PROTEIN 21.9 mg/dL (0.0-0.9)
[2016-12-17] MEDS: FUROSEMIDE 10 MG/1 ML - 4 ML IVP SCH ×2 (08:15→12:38)
[2016-12-17] MEDS: NICOTINE 21 MG /DAY PATCH TRANSDERM SCH (08:16)
[2016-12-17] MEDS: Pantoprazole Inj 40 MG in Normal Saline Flush 10 ML IVP SCH ×2 (08:16→22:00)
[2016-12-17] MEDS: BENZONATATE 100 MG CAPSULE PO SCH ×3 (08:17→22:00)
[2016-12-17] MEDS: Multivitamin Tab 1 TAB PO SCH (08:17)
[2016-12-17] MEDS: ClonazePAM Tab 1 MG TABLET PO PRN ×3 (08:17→22:01)
[2016-12-17] MEDS: Thiamine Tab 100 MG TAB PO SCH (08:17)
[2016-12-17] MEDS: Metoprolol TARTRATE Tab 25 MG TAB PO SCH ×2 (08:17→22:01)
[2016-12-17] MEDS: FLUoxetine 20 MG CAPSULE PO SCH (08:17)
[2016-12-17] MEDS: Patch Removal PATCH TRANSDERM SCH (08:29)
[2016-12-17] MEDS ORDERED: POTASSIUM CHLORIDE 20 MEQ TAB PO ONE (10:38)
[2016-12-17] MEDS: ACETAMINOPHEN 500 MG TABLET PO PRN (11:07)
[2016-12-17 14:01] LABS: MYELOPEROXIDASE AB <0.2 U (())
--- NOTE | 2016-12-17 15:15 | PTI REPORT ---
Thank you for the referral of Ashley Jones. She was seen on 12/15/16 for an inpatient evaluation status post right rotator cuff tear and pancreatitis. SUBJECTIVE: The patient is a 46-year-old female. The patient reports that she lives in [place] with her father and was previously independent. She is not working. The patient reports that she had her surgery end of October/beginning of November; she was unsure of the date per Dr. Marks. Per Dr. Camacho, around November 22, the patient will be able to start weaning out of the brace. PAST MEDICAL HISTORY: Past medical history can be found in the patient's medical record. OBJECTIVE FINDINGS: General observations: The patient was seen supine in bed. Nursing was working on an IV while physical therapy was given permission by nursing to do passive range of motion of the right upper extremity. Nursing reports that the patient is independent in room. Range of motion: The patient demonstrated passive flexion to approximately 110 degrees and abduction to 85-90 degrees. The patient was not formally assessed for mobility secondary to being busy with nursing and the patient is being transferred to another room today. Sensation: The patient demonstrated normal and intact dermatomes. ASSESSMENT: The therapist would like to do a more formal evaluation at a later time. Today was not an ideal time due to the patient's status. We checked back later in the afternoon and the patient was with radiology. Nursing recommended continuing the evaluation in detail tomorrow morning. The patient is a 46-year- old female status post rotator cuff repair on the right shoulder. Mobility was not formally assessed and we will continue to assess further. Passively the patient is doing well. The patient's prognosis for therapy is fair to poor. Problem List: Decreased independence Short-Term Goals: To be met by discharge from inpatient: Patient will be independent with all transfers. Patient will be able to perform all ADLs independently. Patient will be able to ambulate around room without loss of balance. Long-Term Goals: To be met following discharge from inpatient: Patient will be able to return home safely and perform all ADLs independently. TREATMENT PLAN: Patient will be seen B.I.D during the week and one time per day over the weekend as an inpatient to address the above goals and objectives. We will assess mobility tomorrow and then make further clinical recommendations. INITIAL TREATMENT: Treatment today consisted of the initial evaluation followed by passive range of motion to the right shoulder per patient's tolerance. MTDD
--- NOTE | 2016-12-17 15:20 | PT AM DAY ---
Diagnosis : Right Rotator Cuff Repair AM - Physical Therapy S: The patient reports she would just like to sleep but she doesn't have a choice in what she would like to do. She states she would like to be left alone but the patient did agree to therapy. The patient reports she is tired and hasn't been able to sleep. O: Treatment today consisted of continued evaluation. The patient was independent with sit to stands from bed, independent with bed mobility, independent with gait to the restroom, and independent with toileting. The patient ambulated independently back to her bed and was independent with getting back into bed. The patient was left with occupational therapy to perform passive range of motion of the right shoulder. Bed alarm was activated and call light was left within reach. A: The patient has met all therapy goals; she refused balance test. She was independent with all ADLs in the room and was able to ambulate around room without loss of balance. It is recommended that nursing walk with patient often to improve strength and endurance. P: We will discharge the patient from physical therapy at this time as all goals have been met. Occupational therapy will continue with range of motion goals. MTDD
--- NOTE | 2016-12-17 15:32 | OTI REPORT ---
Thank you for the referral of Ashley Jones. She was seen on 12/16/16 for an occupational therapy inpatient evaluation secondary to a right rotator cuff repair and acute pancreatitis. SUBJECTIVE: The patient is a 46-year-old female who was admitted to the hospital with acute pancreatitis. This is chronic for the patient and this is about her fourth or fifth episode. The patient is an alcoholic and has been admitted for this before. The patient does report that she lives with her dad. When asked about her working status, she declined to answer. The patient declined to answer most questions that the therapist asked her. The patient did have a recent rotator cuff surgery. The patient reports it happened in October; however, the doctor reports it happened on November 22. We are supposed to be completing passive range of motion on the right shoulder. The patient is in an abduction pillow. The patient was very frustrated this morning as she reports that she had not had any downtime and no time to eat her breakfast and people just keep bugging her and telling her what to do. PAST MEDICAL HISTORY: Past medical history can be found in the patient's medical record. OBJECTIVE FINDINGS: Bed mobility: The patient was able to complete bed mobility with independence. Ambulation: The patient ambulated to the bathroom with good balance and demonstrated decreased safety with cords; she needed cues for all that. Activities of daily living: The patient was able to complete toileting independently and donning socks independently. She then returned to her bed. Range of motion: Passive range of motion was completed on the right shoulder. We achieved approximately 120 degrees of abduction and 130 degrees of flexion. The patient tolerated this well with minimal pain. ASSESSMENT: Problem List: Decreased range of motion Occupational Therapy Goals: To be met by discharge from inpatient: Patient will be independent with all activities of daily living. Therapy will continue to complete passive range of motion on the right shoulder with a max of 140 degrees of flexion and abduction until discharge. TREATMENT PLAN: Patient will be seen B.I.D during the week and one time per day over the weekend as an inpatient to address the above goals and objectives. INITIAL TREATMENT: Treatment today consisted of the initial evaluation activities only. The patient was left in her bed with bed alarm on. Nursing was notified. KAL
--- NOTE | 2016-12-17 16:31 | DI ---
HISTORY: Right shoulder injury. FINDINGS: Examination reveals metallic plate and screw fixation bridging old fracture of the humeral neck in satisfactory position. There is no evidence of recent fracture or dislocation. IMPRESSION: 1. Post-surgical changes without acute fracture identified.
--- NOTE | 2016-12-17 18:02 | PDOC(PROG) ---
Date and Time of Service: 12/17/2016, 1758 Interval History: No chest pain, shortness of breath is improving. No nausea or vomiting. Patient states she slept last night which really helped her. Still coughing but improved. Objective : Data - Labs CBC and BMP: 12/17/16 05:50 12/17/16 05:50 Labs - Last 24 Hours: Laboratory Results 12/16/16 12/16/16 12/17/16 Range/Units 13:23 19:05 05:50 WBC 8.94 (4.8-10.8) 10^3/uL RBC 3.13 L (4.20-5.40) 10^6/uL Hgb 10.3 L (12.0-16.0) g/dL Hct 30.0 L (37.0-47.0) % MCV 95.8 (81-99) FL MCH 32.9 H (27-31) PG MCHC 34.3 (33-37) g/dL RDW Std Deviation 53.3 H (39-50) fL RDW Coeff of Farzad 15.7 H (11.5-14.5) % Plt Count 302 (140-350) 10*3/uL MPV 9.5 (7.4-12.2) FL Immature Gran % (Auto) 1.1 (0-5) % Neut % (Auto) 73.5 (50-80) % Lymph % (Auto) 18.3 (10-50) % [place] % (Auto) 5.5 (5-15) % Eos % (Auto) 1.3 (0-8) % Baso % (Auto) 0.3 (0-1) % Immature Gran # (Auto) 0.10 10*3/UL Neut # (Auto) 6.56 10*3/UL Lymph # (Auto) 1.64 10*3/uL [place] # (Auto) 0.49 (0.3-0.8) 10*3/UL Eos # (Auto) 0.12 10*3/UL Baso # (Auto) 0.03 10*3/UL WBC Morphology Comment Normal morphology (NORM) Plt Morphology Comment Normal morphology (NORM) RBC Morph Comment Normal morphology (NORM) ESR 111 H (0-20) MM/HR PT Pending 12.4 H INR Pending 1.20 APTT Pending 29.8 Lupus Anticoag Interp Pending Sodium 133 L (135-145) meq/L Potassium 3.6 L 3.2 L (3.8-5.2) meq/L Chloride 99 (98-112) meq/L Carbon Dioxide 23 (23-33) meq/L Anion Gap 11 (5-20) BUN 9 (7-22) mg/dL Creatinine 0.5 (0.50-1.20) mg/dL Estimated GFR > 60 (>60 ml/min/1.73m(2)) BUN/Creatinine Ratio 18.00 (6-20) Glucose 112 H (78-110) mg/dL Calculated Osmolality 275.0 (267-292) mOsm/kg Calcium 9.2 (8.7-10.7) mg/dL C-Reactive Protein 21.9 H (0.0-0.9) mg/dL NT-Pro-B Natriuret Pep 1080 H (0-125) PG/ML Rheumatoid Factor <15 (<15) IU/mL c-ANCA Pending Anti-Proteinase 3 <0.2 (()) U p-ANCA Pending Anti-Myeloperoxidase <0.2 (()) U Glomerular Base Mem IgG <0.2 (()) U - Imaging X-Ray Status: Report Reviewed by Me (Shoulder x-ray appears negative for any acute fracture. Hardware appeared to be in the correct location.) - EKG Data -: EKG Interpreted by Me Rate: Normal EKG Shows Normal: Sinus Rhythm Objective : Exam - General General Appearance: No Acute Distress, Cooperative Additional General Exam Details: Vital Signs - Last Taken Temperature 98.0 F 12/17/16 16:23 Pulse Rate 75 12/17/16 16:23 Respiratory Rate 24 12/17/16 16:23 Blood Pressure 120/79 12/17/16 16:23 Pulse Ox 98 12/17/16 16:23 On 3-4 L of oxygen per nasal cannula. - Head Head Exam: Normal Inspection, Normocephalic, Atraumatic - Eye Eye Exam: No Scleral Icterus - Respiratory Respiratory Exam: Breathing Non Labored, Decreased Breath Sounds (Improved. Less coarse.), Coarse Breath Sounds - Cardiovascular Cardiovascular Exam: RRR, No Murmur, No Clicks, No Gallops, No Rubs, No JVD - GI/Abdominal GI/Abdominal Exam: Normal Bowel Sounds, Non Tender, Non Distended, Soft - Extremities Extremities Exam: No Clubbing Present, No Edema Present, No Cyanosis Present - Neurological Neurological Exam: Alert, Oriented x 3, No Facial Droop, Speech Intact / Clear, Moves All Extremities Equally - Psychiatric Psychiatric Exam: Anxious (But improving on Klonopin and Seroquel.) Assessment and Plan - Patient Problems (1) Acute lung injury Current Visit: Yes Status: Acute Comment: I got a report on the echocardiogram from cardiology, there was no evidence of any diastolic heart failure or left ventricular heart failure. This suggests to me that the patient probably had some sort of alveolar hemorrhage. Her inflammatory markers are quite elevated with her CRP and ESR, I haven't seen a drastic improvement with antibiotics. Overall, the patient does appear better today. Vasculitis workup laboratory bey is still pending. Qualifiers: Encounter type: initial encounter Qualified Description: Acute lung injury, initial encounter Qualifier Code(s): (S27.309A) Unspecified injury of lung, unspecified, initial encounter (2) Hypertension Current Visit: Yes Status: Acute Qualifiers: Hypertension type: essential hypertension Qualified Description: Essential hypertension Qualifier Code(s): (I10) Essential (primary) hypertension (3) Hypokalemia Current Visit: Yes Status: Acute (4) Hypomagnesemia Current Visit: Yes Status: Resolved (5) Hyponatremia Current Visit: Yes Status: Acute (6) Pancreatitis, alcoholic, acute Current Visit: Yes Status: Resolved Qualifiers: Acute pancreatitis complication: no infection or necrosis Qualified Description: Alcohol-induced acute pancreatitis without infection or necrosis Qualifier Code(s): (K85.20) Alcohol induced acute pancreatitis without necrosis or infection (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 Aspiration pneumonia still possibility. Today is day 4 of antibiotics. Continue for a total of 7 days. Oxygen Breathing therapies as necessary I spoke with orthopedics briefly, did not consult them, but wanted to get some direction on the shoulder. The patient is okay to be out of her immobilizer. We got an x-ray today, and she'll follow with Dr. Camacho on Tuesday likely. Overall, I'm pleased to say that the patient is making some progress in terms of improvement. This is still a tenuous situation with her alveolar edema, and I suspect overall that it's alveolar hemorrhage. We really need to just sit tight and wait for the vasculitis workup to come back. I disclosed black box warning on Seroquel to the patient, but overall I think the benefit of helping in reduction of anxiety, control of depression, and insomnia, probably outweigh the potential risks and the patient agreed with that. She once to stay on this medication as she is found to be beneficial. We will continue both Seroquel and Klonopin for now.
[2016-12-17] MEDS: cefTRIAXone Inj 2 GM in Sodium Chloride 0.9% 100 ML IV SCH (19:18)
[2016-12-17] MEDS: QUEtiapine Tab 25 MG TAB PO SCH (22:01)
[2016-12-17] MEDS: NORMAL SALINE 10 ML SYRINGE FLUSH IVP PRN (22:02)
[2016-12-17] MEDS: POTASSIUM CHLORIDE 20 MEQ TAB PO SCH (22:02)
[2016-12-18] MEDS: metroNIDAZOLE 500mg (Premix) 500 MG in Premix 1 BAG IV SCH ×3 (02:33→19:31)
[2016-12-18] MEDS: HEPARIN 500 UNIT/5 ML SYRINGE FOR CENTRAL LINE IVP PRN ×3 (02:34→21:30)
[2016-12-18] MEDS: NORMAL SALINE 10 ML SYRINGE FLUSH IVP PRN ×2 (02:34→18:48)
[2016-12-18] MEDS: GUAIFENESIN/DM 5 ML UD CUP PO SCH ×6 (02:34→23:00)
[2016-12-18 06:17] LABS: RDW COEFFICIENT OF VARIATION 15.9 % (11.5-14.5)
[2016-12-18 06:29] LABS: BLOOD UREA NITROGEN 12 mg/dL (7-22); CALCIUM 9.2 mg/dL (8.7-10.7); CHLORIDE 104 meq/L (98-112); CREATININE 0.6 mg/dL (0.50-1.20); EST GLOMERULAR FILTRATION > 60 (>60 ml/min/1.73m(2)); GLUCOSE 112 mg/dL (78-110); POTASSIUM 3.4 meq/L (3.8-5.2); SODIUM 137 meq/L (135-145)
[2016-12-18 06:45] LABS: HEMATOCRIT 30.5 % (37.0-47.0); HEMOGLOBIN 10.4 g/dL (12.0-16.0); MEAN CORPUSCULAR HEMOGLOBIN 33.1 PG (27-31); MEAN CORPUSCULAR HGB CONC 34.1 g/dL (33-37); MEAN PLATELET VOLUME 9.4 FL (7.4-12.2); RED BLOOD COUNT 3.14 10^6/uL (4.20-5.40); WHITE BLOOD COUNT 9.19 10^3/uL (4.8-10.8)
[2016-12-18 07:34] LABS: PLATELET MORPHOLOGY COMMENT NORMAL MORPHOLOGY (NORM)
[2016-12-18 07:35] LABS: BAND NEUTROPHILS % 6 % (0-10); BASOPHILS % (MANUAL) 0 % (0-1); EOSINOPHILS % (MANUAL) 0 % (0-8); LYMPHOCYTES % (MANUAL) 20 % (10-50); MONOCYTES % (MANUAL) 4 % (0-12); NEUTROPHILS % (MANUAL) 70 % (50-80)
[2016-12-18] MEDS: FUROSEMIDE 10 MG/1 ML - 4 ML IVP SCH ×2 (07:42→15:19)
[2016-12-18] MEDS: NORMAL SALINE 10 ML SYRINGE FLUSH IV PRN (07:43)
[2016-12-18 08:55] LABS: CANNABINOID SCREEN,URINE NEGATIVE (NEG); COCAINE SCREEN NEGATIVE (NEG); METHAMPHETAMINES SCREEN,URINE NEGATIVE (NEG); URINE SAMPLE TYPE VOIDED SPECIMEN
[2016-12-18] MEDS: Pantoprazole Inj 40 MG in Normal Saline Flush 10 ML IVP SCH ×2 (09:30→21:26)
[2016-12-18] MEDS: NICOTINE 21 MG /DAY PATCH TRANSDERM SCH (09:30)
[2016-12-18] MEDS: POTASSIUM CHLORIDE 20 MEQ TAB PO SCH ×2 (09:30→21:27)
[2016-12-18] MEDS: Multivitamin Tab 1 TAB PO SCH (09:31)
[2016-12-18] MEDS: FLUoxetine 20 MG CAPSULE PO SCH (09:31)
[2016-12-18] MEDS: BENZONATATE 100 MG CAPSULE PO SCH ×3 (09:31→21:27)
[2016-12-18] MEDS: Metoprolol TARTRATE Tab 25 MG TAB PO SCH ×2 (09:31→21:35)
[2016-12-18] MEDS: Thiamine Tab 100 MG TAB PO SCH (09:31)
[2016-12-18] MEDS: ClonazePAM Tab 1 MG TABLET PO PRN ×2 (09:31→21:26)
[2016-12-18] MEDS: Patch Removal PATCH TRANSDERM SCH (10:02)
[2016-12-18] MEDS ORDERED: POTASSIUM CHLORIDE 20 MEQ TAB PO ONE (11:02)
--- NOTE | 2016-12-18 13:10 | OT.PROG ---
Progress Note Progress Note: S"Whatever I have, I just got really sick.' O: Pt. seen from 1045 to 1115 with pt. moving from supine to sit with min A and mod vc's for body mechanics. Pt completed sit to stand transfer with min A. Pt. donned elastic wait shorts seated EOB with min A for partial threading over her waist and and to staedy her secondary to decreased standing balance. Pt. wheeled to therapy gym. Pt. completed sit to stand transfer with min A/CGA from w/c to staionary UE bike and pt. pedaled for 8 min on level 1. A: Pt. fatigued by the end of tx session and her hair appearing very matted and nursing notified. P: Continue POC. Ofelia Martines OTD, OTR/L
--- NOTE | 2016-12-18 14:09 | PDOC(PROG) ---
Date and Time of Service: 12/18/2016, 1408 Interval History: No chest pain today. Breathing is better. She is able to do 750 or little higher on her incentive spirometer now. She states her sleep wasn't quite as good last night. No nausea or vomiting. Cough still present but better. More short of breath with exertion. More fatigued with exertion. Objective : Data - Labs CBC and BMP: 12/18/16 06:09 12/18/16 06:09 Labs - Last 24 Hours: Laboratory Results 12/16/16 12/16/16 12/18/16 Range/Units 13:23 Unknown 06:09 WBC 9.19 (4.8-10.8) 10^3/uL RBC 3.14 L (4.20-5.40) 10^6/uL Hgb 10.4 L (12.0-16.0) g/dL Hct 30.5 L (37.0-47.0) % MCV 97.1 (81-99) FL MCH 33.1 H (27-31) PG MCHC 34.1 (33-37) g/dL RDW Std Deviation 54.6 H (39-50) fL RDW Coeff of Farzad 15.9 H (11.5-14.5) % Plt Count 359 H (140-350) 10*3/uL MPV 9.4 (7.4-12.2) FL Neutrophils % (Manual) 70 (50-80) % Band Neutrophils % 6 (0-10) % Lymphocytes % (Manual) 20 (10-50) % Monocytes % (Manual) 4 (0-12) % Eosinophils % (Manual) 0 (0-8) % Basophils % (Manual) 0 (0-1) % Metamyelocytes % Not Reportable Myelocytes % Not Reportable Promyelocytes % Not Reportable Blast Cells Not Reportable WBC Morphology Comment Normal morphology (NORM) Plt Morphology Comment Normal morphology (NORM) RBC Morph Comment Normal morphology (NORM) Sodium 137 (135-145) meq/L Potassium 3.4 L (3.8-5.2) meq/L Chloride 104 (98-112) meq/L Carbon Dioxide 22 L (23-33) meq/L Anion Gap 11 (5-20) BUN 12 (7-22) mg/dL Creatinine 0.6 (0.50-1.20) mg/dL Estimated GFR > 60 (>60 ml/min/1.73m(2)) BUN/Creatinine Ratio 20.00 (6-20) Glucose 112 H (78-110) mg/dL Calculated Osmolality 284.0 (267-292) mOsm/kg Calcium 9.2 (8.7-10.7) mg/dL Ur Collection Type Voided specimen U Specif Grav (Refrac) 1.010 Urine Opiates Screen Negative (NEG) Ur Buprenorphine Negative (NEG) Ur Oxycodone Screen Negative (NEG) Urine Methadone Screen Negative (NEG) Ur Propoxyphene Screen Negative (NEG) Barbiturate Screen Negative (NEG) U Tricyclic Antidepress Negative (NEG) Phencyclidine Screen Negative (NEG) Amphetamines Screen Negative (NEG) U Methamphetamines Scrn Negative (NEG) Benzodiazepines Screen Positive H (NEG) Cocaine Screen Negative (NEG) U Marijuana (THC) Screen Negative (NEG) Rheumatoid Factor <15 (<15) IU/mL - Imaging X-Ray Status: Image Reviewed by Me (I looked at the chest x-ray, and urinary edema is still there, but I do think it's intervally better maybe by about 5-10%. This is either a vasculitis or acute respiratory distress syndrome in relation to pancreatitis.) Objective : Exam - General General Appearance: No Acute Distress, Cooperative Additional General Exam Details: Vital Signs - Last Taken Temperature 97.4 F 12/18/16 12:40 Pulse Rate 74 12/18/16 12:40 Respiratory Rate 20 12/18/16 12:40 Blood Pressure 125/74 12/18/16 12:40 Pulse Ox 94 12/18/16 12:40 On about 3 L of oxygen nasal cannula. - Eye Eye Exam: No Scleral Icterus - Respiratory Respiratory Exam: Breathing Non Labored (Breath sounds are really improved in the bases bilaterally over the last 2 days, but still coarse.), Coarse Breath Sounds - Cardiovascular Cardiovascular Exam: RRR, No Murmur, No Clicks, No Gallops, No Rubs, No JVD - GI/Abdominal GI/Abdominal Exam: Normal Bowel Sounds, Non Tender, Non Distended, Soft - Extremities Extremities Exam: No Clubbing Present, No Edema Present, No Cyanosis Present - Neurological Neurological Exam: Alert, Oriented x 3, No Facial Droop, Speech Intact / Clear, Moves All Extremities Equally Assessment and Plan - Patient Problems (1) Acute lung injury Current Visit: Yes Status: Acute Comment: Vasculitis versus acute respiratory distress syndrome. A lot of studies have come back negative which are reassuring but ANCA studies are still pending Qualifiers: Encounter type: initial encounter Qualified Description: Acute lung injury, initial encounter Qualifier Code(s): (S27.309A) Unspecified injury of lung, unspecified, initial encounter (2) Hypertension Current Visit: Yes Status: Acute Qualifiers: Hypertension type: essential hypertension Qualified Description: Essential hypertension Qualifier Code(s): (I10) Essential (primary) hypertension (3) Hypokalemia Current Visit: Yes Status: Acute Comment: Slowly improving. Now on potassium twice daily. 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
[2016-12-18] MEDS: cefTRIAXone Inj 2 GM in Sodium Chloride 0.9% 100 ML IV SCH (18:48)
[2016-12-18] MEDS: QUEtiapine Tab 25 MG TAB PO SCH (21:27)
[2016-12-18] MEDS: ACETAMINOPHEN 500 MG TABLET PO PRN (21:28)
[2016-12-19] MEDS: metroNIDAZOLE 500mg (Premix) 500 MG in Premix 1 BAG IV SCH ×3 (02:58→18:55)
[2016-12-19] MEDS: GUAIFENESIN/DM 5 ML UD CUP PO SCH ×6 (02:59→18:54)
[2016-12-19] MEDS: NORMAL SALINE 10 ML SYRINGE FLUSH IVP PRN ×3 (02:59→20:01)
[2016-12-19] MEDS: HEPARIN 500 UNIT/5 ML SYRINGE FOR CENTRAL LINE IVP PRN ×2 (03:00→20:01)
--- NOTE | 2016-12-19 04:23 | DI ---
HISTORY: Alveolar infiltrate. PREVIOUS EXAM: December 15, 2016 FINDINGS: PA and lateral views of the chest are obtained, and demonstrate diffuse bilateral airspace disease. There is no associated pleural effusion. Stable postsurgical changes are seen of the right proximal humerus. The skeletal structures are unremarkable. Postsurgical changes are seen consistent with prior cholecystectomy. Vertebral bodies are normal. The ribs are also normal. IMPRESSION: 1. Diffuse bilateral airspace disease. This could represent edema, a viral pneumonia, multifocal klaudia terial pneumonia, or adult respiratory distress syndrome. Correlate clinically.
[2016-12-19 06:43] LABS: BLOOD UREA NITROGEN 15 mg/dL (7-22); CALCIUM 9.5 mg/dL (8.7-10.7); CHLORIDE 104 meq/L (98-112); CREATININE 0.6 mg/dL (0.50-1.20); EST GLOMERULAR FILTRATION > 60 (>60 ml/min/1.73m(2)); GLUCOSE 139 mg/dL (78-110); POTASSIUM 3.5 meq/L (3.8-5.2); SODIUM 136 meq/L (135-145)
[2016-12-19] MEDS: FUROSEMIDE 10 MG/1 ML - 4 ML IVP SCH ×2 (08:04→13:44)
[2016-12-19] MEDS: Pantoprazole Inj 40 MG in Normal Saline Flush 10 ML IVP SCH ×2 (09:24→20:00)
[2016-12-19] MEDS: Metoprolol TARTRATE Tab 25 MG TAB PO SCH ×2 (09:25→20:02)
[2016-12-19] MEDS: Multivitamin Tab 1 TAB PO SCH (09:25)
[2016-12-19] MEDS: FLUoxetine 20 MG CAPSULE PO SCH (09:25)
[2016-12-19] MEDS: Thiamine Tab 100 MG TAB PO SCH (09:25)
[2016-12-19] MEDS: POTASSIUM CHLORIDE 20 MEQ TAB PO SCH ×2 (09:26→20:02)
[2016-12-19] MEDS: BENZONATATE 100 MG CAPSULE PO SCH ×3 (09:26→20:02)
[2016-12-19] MEDS: ClonazePAM Tab 1 MG TABLET PO PRN ×2 (09:31→20:28)
[2016-12-19] MEDS: NICOTINE 21 MG /DAY PATCH TRANSDERM SCH (09:33)
[2016-12-19] MEDS: Patch Removal PATCH TRANSDERM SCH (09:36)
--- NOTE | 2016-12-19 13:01 | PDOC(PROG) ---
Date and Time of Service: 12/19/2016 12 PM Interval History: Subjective Patient came into the hospital as a result of pancreatitis that's improved but however she developed coughing and shortness of breath and a chest x-ray showed bilateral infiltrate she was covered with antibiotics for possibility of infection. She said there is minimal improvement in that regard in terms of the cough and shortness of breath. she is denying other symptoms there's no abdominal pain now. She is complaining from arthralgia of all her joints. Objective : Data - Labs CBC and BMP: 12/18/16 06:09 12/19/16 06:24 Labs - Last 24 Hours: Laboratory Results 12/16/16 12/19/16 Range/Units 13:23 06:24 Sodium 136 (135-145) meq/L Potassium 3.5 L (3.8-5.2) meq/L Chloride 104 (98-112) meq/L Carbon Dioxide 21 L (23-33) meq/L Anion Gap 11 (5-20) BUN 15 (7-22) mg/dL Creatinine 0.6 (0.50-1.20) mg/dL Estimated GFR > 60 (>60 ml/min/1.73m(2)) BUN/Creatinine Ratio 25.00 H (6-20) Glucose 139 H (78-110) mg/dL Calculated Osmolality 284.0 (267-292) mOsm/kg Calcium 9.5 (8.7-10.7) mg/dL IgE 137 (<= 214) kU/L Anti-Nuclear Antibody 0.4 (()) U Objective : Exam - General General Appearance: No Acute Distress, Cooperative - Head Head Exam: Normal Inspection - Eye Eye Exam: Normal Appearance - ENT ENT Exam: Normal Exam - Neck Neck Exam: Normal Inspection - Respiratory Respiratory Exam: Clear to Auscultation - Bilaterally - Cardiovascular Cardiovascular Exam: RRR - GI/Abdominal GI/Abdominal Exam: Normal Bowel Sounds, Non Tender, Non Distended, Soft - Rectal Rectal Exam: Deferred - External Exam: Deferred - Extremities Extremities Exam: Normal Inspection - Back Back Exam: Normal Inspection - Neurological Neurological Exam: Alert, Oriented x 3, CN II-XII Intact - Psychiatric Psychiatric Exam: Normal Affect - Integumentary Integumentary Exam: Normal Color Assessment and Plan - Patient Problems (1) Acute lung injury Current Visit: Yes Status: Acute Comment: She'll be covered with antibiotics both the Rocephin and Flagyl. Continue. Her inflammatory markers are elevated CRP and 21 and ESR 111, serology so far negative. I suspect that this is related to the pancreatitis itself. She developed ARDS like picture, She refused transfer elsewhere. There are some reports of benefit of steroid in early ARDS and with her not showing clinical improvement and no radiological improvement and with elevated the inflammatory markers and arthralgia I think we'll try steroid. Continue diuretics also. Qualifiers: Encounter type: initial encounter Qualified Description: Acute lung injury, initial encounter Qualifier Code(s): (S27.309A) Unspecified injury of lung, unspecified, initial encounter (2) Hypertension Current Visit: Yes Status: Acute Comment: Same medications Qualifiers: Hypertension type: essential hypertension Qualified Description: Essential hypertension Qualifier Code(s): (I10) Essential (primary) hypertension (3) Pancreatitis, acute Current Visit: Yes Status: Acute Comment: This is resolved Code(s): K85.9 (4) Anxiety Current Visit: No Status: Acute Comment: Continue Klonopin
[2016-12-19] MEDS: methylPREDNISolone 40 MG/1 ML VIAL IVP SCH (13:43)
[2016-12-19] MEDS: ACETAMINOPHEN 500 MG TABLET PO PRN ×2 (15:51→20:01)
[2016-12-19] MEDS: cefTRIAXone Inj 2 GM in Sodium Chloride 0.9% 100 ML IV SCH (18:55)
[2016-12-19] MEDS: QUEtiapine Tab 25 MG TAB PO SCH (20:02)
[2016-12-20] MEDS: methylPREDNISolone 40 MG/1 ML VIAL IVP SCH ×2 (02:12→12:34)
[2016-12-20] MEDS: NORMAL SALINE 10 ML SYRINGE FLUSH IVP PRN ×5 (02:12→21:07)
[2016-12-20] MEDS: HEPARIN 500 UNIT/5 ML SYRINGE FOR CENTRAL LINE IVP PRN ×3 (02:12→21:13)
[2016-12-20] MEDS: GUAIFENESIN/DM 5 ML UD CUP PO SCH ×6 (02:17→19:49)
[2016-12-20] MEDS: metroNIDAZOLE 500mg (Premix) 500 MG in Premix 1 BAG IV SCH ×3 (02:56→19:49)
[2016-12-20 07:13] LABS: ASPARTATE AMINO TRANSFERASE 23 IU/L (8-39); BILIRUBIN,TOTAL 0.3 mg/dL (0.3-1.2); BLOOD UREA NITROGEN 18 mg/dL (7-22); C-REACTIVE PROTEIN 2.3 mg/dL (0.0-0.9); CALCIUM 9.9 mg/dL (8.7-10.7); CHLORIDE 102 meq/L (98-112); CREATININE 0.5 mg/dL (0.50-1.20); EST GLOMERULAR FILTRATION > 60 (>60 ml/min/1.73m(2)); GLUCOSE 247 mg/dL (78-110); POTASSIUM 4.3 meq/L (3.8-5.2); SODIUM 136 meq/L (135-145); TOTAL PROTEIN 6.9 g/dL (6.1-8.0)
[2016-12-20 07:26] LABS: HEMATOCRIT 34.7 % (37.0-47.0); HEMOGLOBIN 11.5 g/dL (12.0-16.0); MEAN CORPUSCULAR HEMOGLOBIN 32.3 PG (27-31); MEAN CORPUSCULAR HGB CONC 33.1 g/dL (33-37); MEAN PLATELET VOLUME 9.4 FL (7.4-12.2); RDW COEFFICIENT OF VARIATION 15.9 % (11.5-14.5); RED BLOOD COUNT 3.56 10^6/uL (4.20-5.40); WHITE BLOOD COUNT 16.07 10^3/uL (4.8-10.8)
[2016-12-20] MEDS: FUROSEMIDE 10 MG/1 ML - 4 ML IVP SCH ×2 (07:34→12:34)
[2016-12-20] MEDS: ACETAMINOPHEN 500 MG TABLET PO PRN (07:42)
[2016-12-20 07:45] LABS: ERYTHROCYTE SEDIMENTATION RATE 91 MM/HR (0-20)
[2016-12-20 07:48] LABS: PLATELET MORPHOLOGY COMMENT NORMAL MORPHOLOGY (NORM)
[2016-12-20 07:49] LABS: BAND NEUTROPHILS % 0 % (0-10); LYMPHOCYTES % (MANUAL) 12 % (10-50); NEUTROPHILS % (MANUAL) 86 % (50-80)
[2016-12-20 07:50] LABS: BASOPHILS % (MANUAL) 0 % (0-1); EOSINOPHILS % (MANUAL) 0 % (0-8); MONOCYTES % (MANUAL) 2 % (0-12)
[2016-12-20] MEDS: NICOTINE 21 MG /DAY PATCH TRANSDERM SCH (09:07)
[2016-12-20] MEDS: Pantoprazole Inj 40 MG in Normal Saline Flush 10 ML IVP SCH ×2 (09:07→21:05)
[2016-12-20] MEDS: POTASSIUM CHLORIDE 20 MEQ TAB PO SCH ×2 (09:08→21:09)
[2016-12-20] MEDS: BENZONATATE 100 MG CAPSULE PO SCH ×3 (09:08→21:11)
[2016-12-20] MEDS: Metoprolol TARTRATE Tab 25 MG TAB PO SCH ×2 (09:08→21:10)
[2016-12-20] MEDS: Thiamine Tab 100 MG TAB PO SCH (09:08)
[2016-12-20] MEDS: FLUoxetine 20 MG CAPSULE PO SCH (09:08)
[2016-12-20] MEDS: Multivitamin Tab 1 TAB PO SCH (09:08)
[2016-12-20] MEDS: Patch Removal PATCH TRANSDERM SCH (09:09)
[2016-12-20] MEDS: ClonazePAM Tab 1 MG TABLET PO PRN ×2 (09:11→21:09)
[2016-12-20] MEDS ORDERED: IBUPROFEN 600 MG TABLET PO PRN (09:50)
--- NOTE | 2016-12-20 09:54 | PDOC(PROG) ---
Date and Time of Service: 12/20/2016 9:51 AM Interval History: Subjective Patient feels better the cough seemed to be improved, shortness of breath also improved. She still have the joint pains though. Overall she is better than yesterday. Objective : Data - Labs CBC and BMP: 12/20/16 05:40 12/20/16 05:40 Labs - Last 24 Hours: Laboratory Results 12/16/16 12/20/16 Range/Units 13:23 05:40 WBC 16.07 H (4.8-10.8) 10^3/uL RBC 3.56 L (4.20-5.40) 10^6/uL Hgb 11.5 L (12.0-16.0) g/dL Hct 34.7 L (37.0-47.0) % MCV 97.5 (81-99) FL MCH 32.3 H (27-31) PG MCHC 33.1 (33-37) g/dL RDW Std Deviation 55.1 H (39-50) fL RDW Coeff of Farzad 15.9 H (11.5-14.5) % Plt Count 564 H (140-350) 10*3/uL MPV 9.4 (7.4-12.2) FL Neutrophils % (Manual) 86 H (50-80) % Band Neutrophils % 0 (0-10) % Lymphocytes % (Manual) 12 (10-50) % Monocytes % (Manual) 2 (0-12) % Eosinophils % (Manual) 0 (0-8) % Basophils % (Manual) 0 (0-1) % Metamyelocytes % Not Reportable Myelocytes % Not Reportable Promyelocytes % Not Reportable Blast Cells Not Reportable WBC Morphology Comment Normal morphology (NORM) Plt Morphology Comment Normal morphology (NORM) RBC Morph Comment Normal morphology (NORM) ESR 91 H (0-20) MM/HR Sodium 136 (135-145) meq/L Potassium 4.3 (3.8-5.2) meq/L Chloride 102 (98-112) meq/L Carbon Dioxide 21 L (23-33) meq/L Anion Gap 13 (5-20) BUN 18 (7-22) mg/dL Creatinine 0.5 (0.50-1.20) mg/dL Estimated GFR > 60 (>60 ml/min/1.73m(2)) BUN/Creatinine Ratio 36.00 H (6-20) Glucose 247 H (78-110) mg/dL Calculated Osmolality 291.0 (267-292) mOsm/kg Calcium 9.9 (8.7-10.7) mg/dL Total Bilirubin 0.3 D (0.3-1.2) mg/dL AST 23 (8-39) IU/L ALT 35 (9-52) IU/L Alkaline Phosphatase 86 (38-126) IU/L C-Reactive Protein 2.3 H (0.0-0.9) mg/dL Total Protein 6.9 (6.1-8.0) g/dL Albumin 3.8 (3.5-4.8) g/dL Globulin 3.2 (2.50-4.10) g/dL Albumin/Globulin Ratio 1.10 L (1.3-2.0) mg/g c-ANCA Not Reportable Anti-Proteinase 3 <0.2 (()) U p-ANCA Not Reportable Anti-Myeloperoxidase <0.2 (()) U Objective : Exam - General General Appearance: No Acute Distress, Cooperative - Head Head Exam: Normal Inspection - Eye Eye Exam: Normal Appearance - ENT ENT Exam: Normal Exam - Neck Neck Exam: Normal Inspection - Respiratory Respiratory Exam: Clear to Auscultation - Bilaterally - Cardiovascular Cardiovascular Exam: RRR - GI/Abdominal GI/Abdominal Exam: Normal Bowel Sounds, Non Tender, Non Distended, Soft - Rectal Rectal Exam: Deferred - External Exam: Deferred - Extremities Extremities Exam: Normal Inspection - Back Back Exam: Normal Inspection - Neurological Neurological Exam: Alert, Oriented x 3, CN II-XII Intact - Psychiatric Psychiatric Exam: Normal Affect - Integumentary Integumentary Exam: Normal Color Assessment and Plan - Patient Problems (1) Acute lung injury Current Visit: Yes Status: Acute Comment: As I said yesterday I suspect this is a complications from her pancreatitis with an ARDS -like picture. Since she was not showing improvement and her ESR and CRP elevated. We started a trial of steroid and that seemed to help as CRP is less than ESR is less and clinically she looks better and feels better and she is off oxygen. Consider switching to by mouth tomorrow. With gradual tapering off. Continue antibiotics. Repeat her chest x-ray tomorrow. Continue Lasix Qualifiers: Encounter type: initial encounter Qualified Description: Acute lung injury, initial encounter Qualifier Code(s): (S27.309A) Unspecified injury of lung, unspecified, initial encounter (2) Hypertension Current Visit: Yes Status: Acute Comment: She is on metoprolol but blood pressure is up will restart her amlodipine. Qualifiers: Hypertension type: essential hypertension Qualified Description: Essential hypertension Qualifier Code(s): (I10) Essential (primary) hypertension (3) Pancreatitis, acute Current Visit: Yes Status: Acute Comment: This is resolved Code(s): K85.9 (4) Anxiety Current Visit: No Status: Acute Comment: Same medications
[2016-12-20] MEDS: AmLODIPine Tab 5 MG TABLET PO SCH (11:34)
[2016-12-20 13:31] LABS: ANTISTREP-O TITER 188 IU/mL (0 - 530)
[2016-12-20 13:43] LABS: ANTI-DNASE B TITER <71 U/mL (0 - 300)
--- NOTE | 2016-12-20 17:33 | OT.PROG ---
Progress Note Progress Note: S" I am so much better today." O: Pt. seen from 140 to 2:10 with pt. completing 3 set of 10 both upper an lower rectus strengthening exercises supine in bed. Pt. then completing rolling R and L with mod I and using bed rails. Education provided to pt. on body mechancis and safety during transfers as well as using energy conservation techniques when she becomes winded. A/AROM and PROM provided to RUE and pt. educated on bed positioning for R shoulder. A: Pt. making good progress physically and with rehab goals. P: Continue POc. Ofelia Martines OTD, OTR/L
[2016-12-20] MEDS: cefTRIAXone Inj 2 GM in Sodium Chloride 0.9% 100 ML IV SCH (19:49)
[2016-12-20] MEDS: QUEtiapine Tab 25 MG TAB PO SCH (21:11)
[2016-12-21] MEDS: methylPREDNISolone 40 MG/1 ML VIAL IVP SCH
[2016-12-21] MEDS: NORMAL SALINE 10 ML SYRINGE FLUSH IVP PRN ×3 (00:01→07:16)
[2016-12-21] MEDS: HEPARIN 500 UNIT/5 ML SYRINGE FOR CENTRAL LINE IVP PRN (00:01)
[2016-12-21] MEDS: GUAIFENESIN/DM 5 ML UD CUP PO SCH ×3 (03:52→07:17)
[2016-12-21] MEDS: metroNIDAZOLE 500mg (Premix) 500 MG in Premix 1 BAG IV SCH ×2 (03:52→10:54)
[2016-12-21] MEDS: FUROSEMIDE 10 MG/1 ML - 4 ML IVP SCH (07:16)
[2016-12-21 07:18] VITALS: RESP 20; TEMP 97
[2016-12-21] MEDS ORDERED: GUAIFENESIN/DM 5 ML UD CUP PO PRN (08:33)
[2016-12-21] MEDS: NICOTINE 21 MG /DAY PATCH TRANSDERM SCH (09:03)
[2016-12-21] MEDS: ClonazePAM Tab 1 MG TABLET PO PRN (09:04)
[2016-12-21] MEDS: Patch Removal PATCH TRANSDERM SCH (09:04)
[2016-12-21] MEDS: FLUoxetine 20 MG CAPSULE PO SCH (09:06)
[2016-12-21] MEDS: POTASSIUM CHLORIDE 20 MEQ TAB PO SCH (09:06)
[2016-12-21] MEDS: Pantoprazole Inj 40 MG in Normal Saline Flush 10 ML IVP SCH (09:06)
[2016-12-21] MEDS: BENZONATATE 100 MG CAPSULE PO SCH (09:06)
[2016-12-21] MEDS: Metoprolol TARTRATE Tab 25 MG TAB PO SCH (09:06)
[2016-12-21] MEDS: Multivitamin Tab 1 TAB PO SCH (09:07)
[2016-12-21] MEDS: AmLODIPine Tab 5 MG TABLET PO SCH (09:07)
[2016-12-21] MEDS: Thiamine Tab 100 MG TAB PO SCH (09:07)
--- NOTE | 2016-12-21 09:12 | DI ---
XR CXR 2VW PA/LAT,12/21/2016 7:00 AM: Clinical History: Followup for bilateral infiltrates. Previous Exam: December 18, 2016 Findings: PA and lateral views of the chest are obtained, and demonstrate increased density within the lung bas es which has improved since the prior exam. Postsurgical changes are seen consistent with screw and plate fixation of the proximal right humerus. Patient is status post cholecystectomy. Impression: Improving bibasilar pneumonia.
--- NOTE | 2016-12-21 09:28 | OT PM DAY ---
Diagnosis : Right Rotator Cuff Tear PM - Occupational Therapy S: The patient reports that her arm is a little sore. O: Today we had the patient walk downstairs; she was pretty wobbly as she was walking and she needed contact guard to min assist to keep her balance. Downstairs in therapy the patient received an application of moist heat pack x20 minutes including set up to the right shoulder. She then performed upper extremity range of motion activities including door pulleys, upper body ergometer x3 minutes forward and 3 minutes backward, yellow theraband resisted biceps curls, triceps extensions, and shoulder extension followed by power web and digi-flex for her hand. The patient then walked back up to her room; she required min assist for balance. A: Overall we are working on improving her shoulder strength and mobility of the right side. Her overall gross motor skills were decreased and she needed contact guard to min assist for balance. She was kind of groggy and had difficulty staying alert for 20% of the session today. P: Continue seeing patient BID during the week and one time per day over the weekend for upper extremity strengthening, ADLs, and overall functional mobility. AKASHD
--- NOTE | 2016-12-21 09:45 | PDOC(PROG) ---
Date and Time of Service: 12/21/2016 9:43 AM Interval History: Subjective Patient feels better, denying shortness of breath, no cough. The arthralgia that she had resolved. Objective : Data - Labs CBC and BMP: 12/20/16 05:40 12/20/16 05:40 Labs - Last 24 Hours: Laboratory Results 12/16/16 12/16/16 Range/Units 13:23 19:05 Cryoglobulin KONSTANTIN Cancelled Cryoglobulin Cancelled Anti-Streptolysin Titr 188 (0 - 530) IU/mL Anti-DNase B (Strep) <71 (0 - 300) U/mL Objective : Exam - General General Appearance: No Acute Distress, Cooperative - Head Head Exam: Normal Inspection - Eye Eye Exam: Normal Appearance - ENT ENT Exam: Normal Exam - Neck Neck Exam: Normal Inspection - Respiratory Respiratory Exam: Clear to Auscultation - Bilaterally - Cardiovascular Cardiovascular Exam: RRR - GI/Abdominal GI/Abdominal Exam: Normal Bowel Sounds, Non Tender, Non Distended, Soft - Rectal Rectal Exam: Deferred - External Exam: Deferred - Extremities Extremities Exam: Normal Inspection - Back Back Exam: Normal Inspection - Neurological Neurological Exam: Alert, Oriented x 3, CN II-XII Intact, Speech Intact / Clear , Moves All Extremities Equally - Psychiatric Psychiatric Exam: Normal Affect Assessment and Plan - Patient Problems (1) Acute lung injury Status: Acute Comment: This is improving, her chest x-ray also showed improvement compared to the x-ray that she had before she is off the oxygen. I think we can discharge her home on a tapering dose of steroid then a few days more of antibiotics and follow-up with her physician as an outpatient Qualifiers: Encounter type: initial encounter Qualified Description: Acute lung injury, initial encounter Qualifier Code(s): (S27.309A) Unspecified injury of lung, unspecified, initial encounter (2) Hypertension Status: Acute Comment: Same med Qualifiers: Hypertension type: essential hypertension Qualified Description: Essential hypertension Qualifier Code(s): (I10) Essential (primary) hypertension (3) Anxiety Status: Acute Comment: She thinks the Seroquel helped her and she is requesting a prescription will write that for her.
--- NOTE | 2016-12-21 10:46 | OT AM DAY ---
Diagnosis : Right Rotator Cuff Tear AM - Occupational Therapy S: The patient reports that her right arm is pretty sore and that she is having difficulty even picking up a cup with her right upper extremity. O: The patient ambulated down to therapy which was approximately 100 feet. She received an application of moist heat pack x20 minutes including set up to the right shoulder followed by passive range of motion. She performed horizontal abduction and flexion of the shoulder followed by power web and digi- flex. The patient then ambulated another 300 feet with stand by assist. A: The patient is coughing less and her skin color looked a little better today than the last time the therapist saw the patient. She is making some gains with activity tolerance. P: Continue seeing patient BID during the week and one time per day over the weekend for upper extremity strengthening, ADLs, and overall functional activity. MTDD
--- NOTE | 2016-12-21 12:22 | DCSUMMARY ---
Hospitalization Summary Admit Date: 12/10/16 Discharge Date: 12/21/16 Hospital Course: Discharge diagnoses 1. Acute pancreatitis secondary to alcohol 2. Alcohol abuse 3. Bilateral lung infiltrates suggestive of an ARDS like picture likely a complication of pancreatitis 4. Hypertension 5. Anxiety 6. Nephrolithiasis 7. Fatty infiltration of the liver Hospital course This is a 46 years old female with medical history significant for history of multiple admissions to the hospital because of alcohol-induced pancreatitis, hypertension who came into the hospital because of abdominal pain, nausea and vomiting and was found to have pancreatitis and because of that she was admitted to the hospital. Her lipase was elevated at more than [address] of the abdomen showed Inflammatory changes primarily over the region of the body and tail the pancreas consistent with pancreatitis there are no pseudocysts no duct dilatation or pancreatic calcifications. Patient was treated conservatively with fluids and pain medications, gradually there was improvement but then she developed hypoxemia a chest x-ray showed bilateral infiltrates and a CT also showed diffuse patchy alveolar infiltrate bilaterally, she was put on antibiotics. Multiple serological tests were sent and they're all negative including SYLVAIN,rheumatoid factor, C and P ANCA, glomerular basement membrane antibody also was negative. I saw her later on during her hospital stay her ESR was noted that to be elevated and CRP was elevated she was having arthralgia, I thoughts that she probably have an ARDS like picture probably secondary to the pancreatitis itself, since she was less than 14 days from the start of her symptoms I thought maybe a trial of for steroid might be helpful especially with elevated inflammatory markers we did that and she showed good response to that in terms of resolution of her cough. Resolution of the shortness of breath, and we were able to take her off the oxygen. Her arthralgia also improved her CRP also improved. On the day of discharge she was doing much better her lungs exam was unremarkable she was off the oxygen. We thought that She can be discharged home on tapering dose of steroid ,few days of antibiotics and will discharge her also on some Lasix. I did warn her again about alcohol. She said that she will follow-up with [facility] meeting. She did have some anxiety and a trial of for Seroquel at night seems to help her and improve her sleep. So we added that to the discharge medications. Laboratory Results 12/10/16 12/10/16 12/10/16 Range/Units 02:14 03:20 04:23 WBC 11.44 H (4.8-10.8) 10^3/uL RBC 4.56 (4.20-5.40) 10^6/uL Hgb 15.1 (12.0-16.0) g/dL Hct 42.2 (37.0-47.0) % MCV 92.5 (81-99) FL MCH 33.1 H (27-31) PG MCHC 35.8 (33-37) g/dL RDW Std Deviation 51.2 H (39-50) fL RDW Coeff of Farzad 15.3 H (11.5-14.5) % Plt Count 261 (140-350) 10*3/uL MPV 9.4 (7.4-12.2) FL Immature Gran % (Auto) 0.2 (0-5) % Neut % (Auto) 81.5 H (50-80) % Lymph % (Auto) 14.4 (10-50) % [place] % (Auto) 3.6 L (5-15) % Eos % (Auto) 0.1 (0-8) % Baso % (Auto) 0.2 (0-1) % Immature Gran # (Auto) 0.02 10*3/UL Neut # (Auto) 9.33 10*3/UL Lymph # (Auto) 1.65 10*3/uL [place] # (Auto) 0.41 (0.3-0.8) 10*3/UL Eos # (Auto) 0.01 10*3/UL Baso # (Auto) 0.02 10*3/UL Neutrophils % (Manual) (50-80) % Band Neutrophils % (0-10) % Lymphocytes % (Manual) (10-50) % Monocytes % (Manual) (0-12) % Eosinophils % (Manual) (0-8) % Basophils % (Manual) (0-1) % Metamyelocytes % Myelocytes % Promyelocytes % Blast Cells WBC Morphology Comment Normal morphology (NORM) Plt Morphology Comment Normal morphology (NORM) RBC Morph Comment Normal morphology (NORM) ESR (0-20) MM/HR PT INR APTT dRVVT Screen 50:50 Lupus Anticoag Interp VBG pH (7.32-7.42) VBG pCO2 (45-55) mmHg VBG HCO3 (22-26) mmol/L VBG Base Excess (-2-2) MMOL/L Sodium 131 L (135-145) meq/L Potassium 3.2 L (3.8-5.2) meq/L Chloride 87 L (98-112) meq/L Carbon Dioxide 17 L (23-33) meq/L Anion Gap 27 H (5-20) BUN 45 H (7-22) mg/dL Creatinine 1.8 H (0.50-1.20) mg/dL Estimated GFR 30 (>60 ml/min/1.73m(2)) BUN/Creatinine Ratio 25.00 H (6-20) Glucose 149 H (78-110) mg/dL Calculated Osmolality 286.0 (267-292) mOsm/kg Lactic Acid 0.6 L (0.70-2.10) MMOL/L Uric Acid (2.5-7.5) mg/dl Calcium 10.7 (8.7-10.7) mg/dL Magnesium (1.6-2.4) mg/dL Total Bilirubin 1.5 H (0.3-1.2) mg/dL AST 47 H (8-39) IU/L ALT 43 (9-52) IU/L Alkaline Phosphatase 117 (38-126) IU/L Ammonia (9.0-33.0) UMOL/L Troponin I (< 0.040) ng/mL C-Reactive Protein (0.0-0.9) mg/dL NT-Pro-B Natriuret Pep (0-125) PG/ML Total Protein 9.5 H (6.1-8.0) g/dL Albumin 5.7 H (3.5-4.8) g/dL Globulin 3.8 (2.50-4.10) g/dL Albumin/Globulin Ratio 1.50 (1.3-2.0) mg/g Amylase 514 H (30-110) U/L Lipase 4043 H* (23-300) IU/L Serum HCG, Qual Negative Ur Collection Type Clean catch urine Urine Color Yellow Urine Clarity Clear (CLEAR) Urine pH 5.5 (5.0-8.5) Ur Specific [place] 1.015 (1.005-1.030) U Specif Grav (Refrac) Urine Protein 30 (NEG) mg/dl Urine Glucose (UA) Negative (NEG) mg/dL Urine Ketones 15 (NEG) Urine Occult Blood Trace-lysed H (NEG) Urine Nitrate Negative (NEG) Urine Bilirubin Small (NEG) Urine Urobilinogen 0.2 (0.2) EU/dL Ur Leukocyte Esterase Negative (NEG) Urine RBC 0-3 (NONE) /hpf Urine WBC 3-5 (NONE) Ur Squamous Epith Cells Few (NONE) Ur Renal Epithelial Cell None (NONE) Urine Crystals None Urine Bacteria Rare (NONE) Urine Casts Few (NONE) Urine Mucus Rare (NONE) Urine Trichomonas None (NONE) Urine Yeast None (NONE) Ur Culture Indicated? Culture not set Urine Opiates Screen (NEG) Ur Buprenorphine (NEG) Ur Oxycodone Screen (NEG) Urine Methadone Screen (NEG) Ur Propoxyphene Screen (NEG) Barbiturate Screen (NEG) U Tricyclic Antidepress (NEG) Phencyclidine Screen (NEG) Amphetamines Screen (NEG) U Methamphetamines Scrn (NEG) Benzodiazepines Screen (NEG) Cocaine Screen (NEG) U Marijuana (THC) Screen (NEG) Serum Alcohol < 10 (0-10) mg/dL IgE (<= 214) kU/L Cryoglobulin KONSTANTIN Cryoglobulin Rheumatoid Factor (<15) IU/mL Anti-Nuclear Antibody (()) U c-ANCA Anti-Proteinase 3 (()) U p-ANCA Anti-Myeloperoxidase (()) U Glomerular Base Mem IgG (()) U Anti-Streptolysin Titr (0 - 530) IU/mL Anti-DNase B (Strep) (0 - 300) U/mL 12/10/16 12/11/16 12/12/16 Range/Units 14:03 05:40 04:55 WBC 7.09 (4.8-10.8) 10^3/uL RBC 4.00 L (4.20-5.40) 10^6/uL Hgb 12.9 (12.0-16.0) g/dL Hct 37.8 (37.0-47.0) % MCV 94.5 (81-99) FL MCH 32.3 H (27-31) PG MCHC 34.1 (33-37) g/dL RDW Std Deviation 50.5 H (39-50) fL RDW Coeff of Farzad 15.0 H (11.5-14.5) % Plt Count 190 (140-350) 10*3/uL MPV 9.7 (7.4-12.2) FL Immature Gran % (Auto) 0.1 (0-5) % Neut % (Auto) 62.4 (50-80) % Lymph % (Auto) 29.8 (10-50) % [place] % (Auto) 6.9 (5-15) % Eos % (Auto) 0.7 (0-8) % Baso % (Auto) 0.1 (0-1) % Immature Gran # (Auto) 0.01 10*3/UL Neut # (Auto) 4.42 10*3/UL Lymph # (Auto) 2.11 10*3/uL [place] # (Auto) 0.49 (0.3-0.8) 10*3/UL Eos # (Auto) 0.05 10*3/UL Baso # (Auto) 0.01 10*3/UL Neutrophils % (Manual) (50-80) % Band Neutrophils % (0-10) % Lymphocytes % (Manual) (10-50) % Monocytes % (Manual) (0-12) % Eosinophils % (Manual) (0-8) % Basophils % (Manual) (0-1) % Metamyelocytes % Myelocytes % Promyelocytes % Blast Cells WBC Morphology Comment Normal morphology (NORM) Plt Morphology Comment Normal morphology (NORM) RBC Morph Comment Normal morphology (NORM) ESR (0-20) MM/HR PT INR APTT dRVVT Screen 50:50 Lupus Anticoag Interp VBG pH (7.32-7.42) VBG pCO2 (45-55) mmHg VBG HCO3 (22-26) mmol/L VBG Base Excess (-2-2) MMOL/L Sodium 131 L 132 L (135-145) meq/L Potassium 3.6 L 4.0 (3.8-5.2) meq/L Chloride 96 L 98 (98-112) meq/L Carbon Dioxide 21 L 21 L (23-33) meq/L Anion Gap 14 13 (5-20) BUN 23 H 11 (7-22) mg/dL Creatinine 0.8 0.6 (0.50-1.20) mg/dL Estimated GFR > 60 > 60 (>60 ml/min/1.73m(2)) BUN/Creatinine Ratio 28.75 H 18.33 (6-20) Glucose 188 H 107 (78-110) mg/dL Calculated Osmolality 280.0 272.0 (267-292) mOsm/kg Lactic Acid (0.70-2.10) MMOL/L Uric Acid (2.5-7.5) mg/dl Calcium 8.8 9.2 (8.7-10.7) mg/dL Magnesium 1.7 (1.6-2.4) mg/dL Total Bilirubin 0.9 (0.3-1.2) mg/dL AST 36 (8-39) IU/L ALT 27 (9-52) IU/L Alkaline Phosphatase 75 (38-126) IU/L Ammonia (9.0-33.0) UMOL/L Troponin I (< 0.040) ng/mL C-Reactive Protein (0.0-0.9) mg/dL NT-Pro-B Natriuret Pep (0-125) PG/ML Total Protein 7.5 (6.1-8.0) g/dL Albumin 4.6 (3.5-4.8) g/dL Globulin 2.9 (2.50-4.10) g/dL Albumin/Globulin Ratio 1.50 (1.3-2.0) mg/g Amylase (30-110) U/L Lipase 1830 H* 824 H (23-300) IU/L Serum HCG, Qual Ur Collection Type Urine Color Urine Clarity (CLEAR) Urine pH (5.0-8.5) Ur Specific [place] (1.005-1.030) U Specif Grav (Refrac) Urine Protein (NEG) mg/dl Urine Glucose (UA) (NEG) mg/dL Urine Ketones (NEG) Urine Occult Blood (NEG) Urine Nitrate (NEG) Urine Bilirubin (NEG) Urine Urobilinogen (0.2) EU/dL Ur Leukocyte Esterase (NEG) Urine RBC (NONE) /hpf Urine WBC (NONE) Ur Squamous Epith Cells (NONE) Ur Renal Epithelial Cell (NONE) Urine Crystals Urine Bacteria (NONE) Urine Casts (NONE) Urine Mucus (NONE) Urine Trichomonas (NONE) Urine Yeast (NONE) Ur Culture Indicated? Urine Opiates Screen (NEG) Ur Buprenorphine (NEG) Ur Oxycodone Screen (NEG) Urine Methadone Screen (NEG) Ur Propoxyphene Screen (NEG) Barbiturate Screen (NEG) U Tricyclic Antidepress (NEG) Phencyclidine Screen (NEG) Amphetamines Screen (NEG) U Methamphetamines Scrn (NEG) Benzodiazepines Screen (NEG) Cocaine Screen (NEG) U Marijuana (THC) Screen (NEG) Serum Alcohol (0-10) mg/dL IgE (<= 214) kU/L Cryoglobulin KONSTANTIN Cryoglobulin Rheumatoid Factor (<15) IU/mL Anti-Nuclear Antibody (()) U c-ANCA Anti-Proteinase 3 (()) U p-ANCA Anti-Myeloperoxidase (()) U Glomerular Base Mem IgG (()) U Anti-Streptolysin Titr (0 - 530) IU/mL Anti-DNase B (Strep) (0 - 300) U/mL 12/13/16 12/13/16 12/14/16 Range/Units 06:00 09:31 05:19 WBC 12.03 H 11.26 H (4.8-10.8) 10^3/uL RBC 3.79 L 3.31 L (4.20-5.40) 10^6/uL Hgb 12.5 10.7 L (12.0-16.0) g/dL Hct 36.8 L 31.4 L (37.0-47.0) % MCV 97.1 94.9 (81-99) FL MCH 33.0 H 32.3 H (27-31) PG MCHC 34.0 34.1 (33-37) g/dL RDW Std Deviation 51.0 H 50.3 H (39-50) fL RDW Coeff of Farzad 15.0 H 14.9 H (11.5-14.5) % Plt Count 131 L 119 L (140-350) 10*3/uL MPV 10.7 10.3 (7.4-12.2) FL Immature Gran % (Auto) 0.2 0.3 (0-5) % Neut % (Auto) 82.6 H 84.3 H (50-80) % Lymph % (Auto) 13.3 8.6 L (10-50) % [place] % (Auto) 3.2 L 6.3 (5-15) % Eos % (Auto) 0.6 0.4 (0-8) % Baso % (Auto) 0.1 0.1 (0-1) % Immature Gran # (Auto) 0.03 0.03 10*3/UL Neut # (Auto) 9.93 9.50 10*3/UL Lymph # (Auto) 1.60 0.97 10*3/uL [place] # (Auto) 0.39 0.71 (0.3-0.8) 10*3/UL Eos # (Auto) 0.07 0.04 10*3/UL Baso # (Auto) 0.01 0.01 10*3/UL Neutrophils % (Manual) (50-80) % Band Neutrophils % (0-10) % Lymphocytes % (Manual) (10-50) % Monocytes % (Manual) (0-12) % Eosinophils % (Manual) (0-8) % Basophils % (Manual) (0-1) % Metamyelocytes % Myelocytes % Promyelocytes % Blast Cells WBC Morphology Comment Normal morphology Normal morphology (NORM) Plt Morphology Comment Normal morphology Normal morphology (NORM) RBC Morph Comment Normal morphology Normal morphology (NORM) ESR (0-20) MM/HR PT INR APTT dRVVT Screen 50:50 Lupus Anticoag Interp VBG pH (7.32-7.42) VBG pCO2 (45-55) mmHg VBG HCO3 (22-26) mmol/L VBG Base Excess (-2-2) MMOL/L Sodium 130 L 125 L (135-145) meq/L Potassium 4.4 3.3 L D (3.8-5.2) meq/L Chloride 93 L 86 L (98-112) meq/L Carbon Dioxide 23 25 (23-33) meq/L Anion Gap 14 14 (5-20) BUN 14 18 (7-22) mg/dL Creatinine 0.8 0.9 (0.50-1.20) mg/dL Estimated GFR > 60 > 60 (>60 ml/min/1.73m(2)) BUN/Creatinine Ratio 17.50 20.00 (6-20) Glucose 96 118 H (78-110) mg/dL Calculated Osmolality 270.0 262.0 L (267-292) mOsm/kg Lactic Acid (0.70-2.10) MMOL/L Uric Acid (2.5-7.5) mg/dl Calcium 9.8 9.4 (8.7-10.7) mg/dL Magnesium 1.3 L 1.4 L (1.6-2.4) mg/dL Total Bilirubin 1.1 1.2 (0.3-1.2) mg/dL AST 37 30 (8-39) IU/L ALT 28 32 (9-52) IU/L Alkaline Phosphatase 85 89 (38-126) IU/L Ammonia (9.0-33.0) UMOL/L Troponin I < 0.012 (< 0.040) ng/mL C-Reactive Protein (0.0-0.9) mg/dL NT-Pro-B Natriuret Pep 381 H (0-125) PG/ML Total Protein 7.5 7.1 (6.1-8.0) g/dL Albumin 4.4 4.0 (3.5-4.8) g/dL Globulin 3.1 3.1 (2.50-4.10) g/dL Albumin/Globulin Ratio 1.40 1.20 L (1.3-2.0) mg/g Amylase (30-110) U/L Lipase 159 (23-300) IU/L Serum HCG, Qual Ur Collection Type Urine Color Urine Clarity (CLEAR) Urine pH (5.0-8.5) Ur Specific [place] (1.005-1.030) U Specif Grav (Refrac) Urine Protein (NEG) mg/dl Urine Glucose (UA) (NEG) mg/dL Urine Ketones (NEG) Urine Occult Blood (NEG) Urine Nitrate (NEG) Urine Bilirubin (NEG) Urine Urobilinogen (0.2) EU/dL Ur Leukocyte Esterase (NEG) Urine RBC (NONE) /hpf Urine WBC (NONE) Ur Squamous Epith Cells (NONE) Ur Renal Epithelial Cell (NONE) Urine Crystals Urine Bacteria (NONE) Urine Casts (NONE) Urine Mucus (NONE) Urine Trichomonas (NONE) Urine Yeast (NONE) Ur Culture Indicated? Urine Opiates Screen (NEG) Ur Buprenorphine (NEG) Ur Oxycodone Screen (NEG) Urine Methadone Screen (NEG) Ur Propoxyphene Screen (NEG) Barbiturate Screen (NEG) U Tricyclic Antidepress (NEG) Phencyclidine Screen (NEG) Amphetamines Screen (NEG) U Methamphetamines Scrn (NEG) Benzodiazepines Screen (NEG) Cocaine Screen (NEG) U Marijuana (THC) Screen (NEG) Serum Alcohol (0-10) mg/dL IgE (<= 214) kU/L Cryoglobulin KONSTANTIN Cryoglobulin Rheumatoid Factor (<15) IU/mL Anti-Nuclear Antibody (()) U c-ANCA Anti-Proteinase 3 (()) U p-ANCA Anti-Myeloperoxidase (()) U Glomerular Base Mem IgG (()) U Anti-Streptolysin Titr (0 - 530) IU/mL Anti-DNase B (Strep) (0 - 300) U/mL 12/15/16 12/15/16 12/16/16 Range/Units 05:13 05:20 05:18 WBC 8.02 (4.8-10.8) 10^3/uL RBC 3.13 L (4.20-5.40) 10^6/uL Hgb 10.1 L (12.0-16.0) g/dL Hct 29.6 L (37.0-47.0) % MCV 94.6 (81-99) FL MCH 32.3 H (27-31) PG MCHC 34.1 (33-37) g/dL RDW Std Deviation 50.0 (39-50) fL RDW Coeff of Farzad 15.1 H (11.5-14.5) % Plt Count 140 (140-350) 10*3/uL MPV 10.6 (7.4-12.2) FL Immature Gran % (Auto) 0.2 (0-5) % Neut % (Auto) 78.5 (50-80) % Lymph % (Auto) 13.2 (10-50) % [place] % (Auto) 6.6 (5-15) % Eos % (Auto) 1.4 (0-8) % Baso % (Auto) 0.1 (0-1) % Immature Gran # (Auto) 0.02 10*3/UL Neut # (Auto) 6.29 10*3/UL Lymph # (Auto) 1.06 10*3/uL [place] # (Auto) 0.53 (0.3-0.8) 10*3/UL Eos # (Auto) 0.11 10*3/UL Baso # (Auto) 0.01 10*3/UL Neutrophils % (Manual) (50-80) % Band Neutrophils % (0-10) % Lymphocytes % (Manual) (10-50) % Monocytes % (Manual) (0-12) % Eosinophils % (Manual) (0-8) % Basophils % (Manual) (0-1) % Metamyelocytes % Myelocytes % Promyelocytes % Blast Cells WBC Morphology Comment Normal morphology (NORM) Plt Morphology Comment Normal morphology (NORM) RBC Morph Comment Normal morphology (NORM) ESR (0-20) MM/HR PT INR APTT dRVVT Screen 50:50 Lupus Anticoag Interp VBG pH 7.51 H (7.32-7.42) VBG pCO2 27 L (45-55) mmHg VBG HCO3 22 (22-26) mmol/L VBG Base Excess -1 (-2-2) MMOL/L Sodium 126 L 132 L D (135-145) meq/L Potassium 3.2 L 3.1 L (3.8-5.2) meq/L Chloride 92 L 100 (98-112) meq/L Carbon Dioxide 24 23 (23-33) meq/L Anion Gap 10 9 (5-20) BUN 15 10 (7-22) mg/dL Creatinine 0.7 0.6 (0.50-1.20) mg/dL Estimated GFR > 60 > 60 (>60 ml/min/1.73m(2)) BUN/Creatinine Ratio 21.42 H 16.66 (6-20) Glucose 93 104 (78-110) mg/dL Calculated Osmolality 262.0 L 272.0 (267-292) mOsm/kg Lactic Acid (0.70-2.10) MMOL/L Uric Acid (2.5-7.5) mg/dl Calcium 9.1 9.0 (8.7-10.7) mg/dL Magnesium 2.2 (1.6-2.4) mg/dL Total Bilirubin 1.0 (0.3-1.2) mg/dL AST 24 (8-39) IU/L ALT 31 (9-52) IU/L Alkaline Phosphatase 77 (38-126) IU/L Ammonia 18 (9.0-33.0) UMOL/L Troponin I < 0.012 (< 0.040) ng/mL C-Reactive Protein (0.0-0.9) mg/dL NT-Pro-B Natriuret Pep 696 H (0-125) PG/ML Total Protein 6.4 (6.1-8.0) g/dL Albumin 3.6 (3.5-4.8) g/dL Globulin 2.9 (2.50-4.10) g/dL Albumin/Globulin Ratio 1.20 L (1.3-2.0) mg/g Amylase (30-110) U/L Lipase (23-300) IU/L Serum HCG, Qual Ur Collection Type Urine Color Urine Clarity (CLEAR) Urine pH (5.0-8.5) Ur Specific [place] (1.005-1.030) U Specif Grav (Refrac) Urine Protein (NEG) mg/dl Urine Glucose (UA) (NEG) mg/dL Urine Ketones (NEG) Urine Occult Blood (NEG) Urine Nitrate (NEG) Urine Bilirubin (NEG) Urine Urobilinogen (0.2) EU/dL Ur Leukocyte Esterase (NEG) Urine RBC (NONE) /hpf Urine WBC (NONE) Ur Squamous Epith Cells (NONE) Ur Renal Epithelial Cell (NONE) Urine Crystals Urine Bacteria (NONE) Urine Casts (NONE) Urine Mucus (NONE) Urine Trichomonas (NONE) Urine Yeast (NONE) Ur Culture Indicated? Urine Opiates Screen (NEG) Ur Buprenorphine (NEG) Ur Oxycodone Screen (NEG) Urine Methadone Screen (NEG) Ur Propoxyphene Screen (NEG) Barbiturate Screen (NEG) U Tricyclic Antidepress (NEG) Phencyclidine Screen (NEG) Amphetamines Screen (NEG) U Methamphetamines Scrn (NEG) Benzodiazepines Screen (NEG) Cocaine Screen (NEG) U Marijuana (THC) Screen (NEG) Serum Alcohol (0-10) mg/dL IgE (<= 214) kU/L Cryoglobulin KONSTANTIN Cryoglobulin Rheumatoid Factor (<15) IU/mL Anti-Nuclear Antibody (()) U c-ANCA Anti-Proteinase 3 (()) U p-ANCA Anti-Myeloperoxidase (()) U Glomerular Base Mem IgG (()) U Anti-Streptolysin Titr (0 - 530) IU/mL Anti-DNase B (Strep) (0 - 300) U/mL 12/16/16 12/16/16 12/16/16 Range/Units 13:23 13:24 19:05 WBC (4.8-10.8) 10^3/uL RBC (4.20-5.40) 10^6/uL Hgb (12.0-16.0) g/dL Hct (37.0-47.0) % MCV (81-99) FL MCH (27-31) PG MCHC (33-37) g/dL RDW Std Deviation (39-50) fL RDW Coeff of Farzad (11.5-14.5) % Plt Count (140-350) 10*3/uL MPV (7.4-12.2) FL Immature Gran % (Auto) (0-5) % Neut % (Auto) (50-80) % Lymph % (Auto) (10-50) % [place] % (Auto) (5-15) % Eos % (Auto) (0-8) % Baso % (Auto) (0-1) % Immature Gran # (Auto) 10*3/UL Neut # (Auto) 10*3/UL Lymph # (Auto) 10*3/uL [place] # (Auto) (0.3-0.8) 10*3/UL Eos # (Auto) 10*3/UL Baso # (Auto) 10*3/UL Neutrophils % (Manual) (50-80) % Band Neutrophils % (0-10) % Lymphocytes % (Manual) (10-50) % Monocytes % (Manual) (0-12) % Eosinophils % (Manual) (0-8) % Basophils % (Manual) (0-1) % Metamyelocytes % Myelocytes % Promyelocytes % Blast Cells WBC Morphology Comment (NORM) Plt Morphology Comment (NORM) RBC Morph Comment (NORM) ESR 111 H (0-20) MM/HR PT 15.9 INR 1.4 APTT 28 dRVVT Screen 50:50 1.4 Lupus Anticoag Interp Pending VBG pH (7.32-7.42) VBG pCO2 (45-55) mmHg VBG HCO3 (22-26) mmol/L VBG Base Excess (-2-2) MMOL/L Sodium (135-145) meq/L Potassium 3.6 L (3.8-5.2) meq/L Chloride (98-112) meq/L Carbon Dioxide (23-33) meq/L Anion Gap (5-20) BUN (7-22) mg/dL Creatinine (0.50-1.20) mg/dL Estimated GFR (>60 ml/min/1.73m(2)) BUN/Creatinine Ratio (6-20) Glucose (78-110) mg/dL Calculated Osmolality (267-292) mOsm/kg Lactic Acid (0.70-2.10) MMOL/L Uric Acid 5.2 (2.5-7.5) mg/dl Calcium (8.7-10.7) mg/dL Magnesium (1.6-2.4) mg/dL Total Bilirubin (0.3-1.2) mg/dL AST (8-39) IU/L ALT (9-52) IU/L Alkaline Phosphatase (38-126) IU/L Ammonia (9.0-33.0) UMOL/L Troponin I (< 0.040) ng/mL C-Reactive Protein (0.0-0.9) mg/dL NT-Pro-B Natriuret Pep 1080 H (0-125) PG/ML Total Protein (6.1-8.0) g/dL Albumin (3.5-4.8) g/dL Globulin (2.50-4.10) g/dL Albumin/Globulin Ratio (1.3-2.0) mg/g Amylase (30-110) U/L Lipase (23-300) IU/L Serum HCG, Qual Ur Collection Type Cath specimen Urine Color Yellow Urine Clarity Clear (CLEAR) Urine pH 7.0 (5.0-8.5) Ur Specific [place] 1.015 (1.005-1.030) U Specif Grav (Refrac) Urine Protein Trace (NEG) mg/dl Urine Glucose (UA) Negative (NEG) mg/dL Urine Ketones Negative (NEG) Urine Occult Blood Negative (NEG) Urine Nitrate Negative (NEG) Urine Bilirubin Negative (NEG) Urine Urobilinogen 1.0 (0.2) EU/dL Ur Leukocyte Esterase Negative (NEG) Urine RBC (NONE) /hpf Urine WBC (NONE) Ur Squamous Epith Cells (NONE) Ur Renal Epithelial Cell (NONE) Urine Crystals Urine Bacteria (NONE) Urine Casts (NONE) Urine Mucus (NONE) Urine Trichomonas (NONE) Urine Yeast (NONE) Ur Culture Indicated? Culture not set Urine Opiates Screen (NEG) Ur Buprenorphine (NEG) Ur Oxycodone Screen (NEG) Urine Methadone Screen (NEG) Ur Propoxyphene Screen (NEG) Barbiturate Screen (NEG) U Tricyclic Antidepress (NEG) Phencyclidine Screen (NEG) Amphetamines Screen (NEG) U Methamphetamines Scrn (NEG) Benzodiazepines Screen (NEG) Cocaine Screen (NEG) U Marijuana (THC) Screen (NEG) Serum Alcohol (0-10) mg/dL IgE 137 (<= 214) kU/L Cryoglobulin KONSTANTIN Cancelled Cryoglobulin Cancelled Rheumatoid Factor <15 (<15) IU/mL Anti-Nuclear Antibody 0.4 (()) U c-ANCA Not Reportable Anti-Proteinase 3 <0.2 (()) U p-ANCA Not Reportable Anti-Myeloperoxidase <0.2 (()) U Glomerular Base Mem IgG <0.2 (()) U Anti-Streptolysin Titr 188 (0 - 530) IU/mL Anti-DNase B (Strep) <71 (0 - 300) U/mL 12/16/16 12/17/16 12/18/16 Range/Units Unknown 05:50 06:09 WBC 8.94 9.19 (4.8-10.8) 10^3/uL RBC 3.13 L 3.14 L (4.20-5.40) 10^6/uL Hgb 10.3 L 10.4 L (12.0-16.0) g/dL Hct 30.0 L 30.5 L (37.0-47.0) % MCV 95.8 97.1 (81-99) FL MCH 32.9 H 33.1 H (27-31) PG MCHC 34.3 34.1 (33-37) g/dL RDW Std Deviation 53.3 H 54.6 H (39-50) fL RDW Coeff of Farzad 15.7 H 15.9 H (11.5-14.5) % Plt Count 302 359 H (140-350) 10*3/uL MPV 9.5 9.4 (7.4-12.2) FL Immature Gran % (Auto) 1.1 (0-5) % Neut % (Auto) 73.5 (50-80) % Lymph % (Auto) 18.3 (10-50) % [place] % (Auto) 5.5 (5-15) % Eos % (Auto) 1.3 (0-8) % Baso % (Auto) 0.3 (0-1) % Immature Gran # (Auto) 0.10 10*3/UL Neut # (Auto) 6.56 10*3/UL Lymph # (Auto) 1.64 10*3/uL [place] # (Auto) 0.49 (0.3-0.8) 10*3/UL Eos # (Auto) 0.12 10*3/UL Baso # (Auto) 0.03 10*3/UL Neutrophils % (Manual) 70 (50-80) % Band Neutrophils % 6 (0-10) % Lymphocytes % (Manual) 20 (10-50) % Monocytes % (Manual) 4 (0-12) % Eosinophils % (Manual) 0 (0-8) % Basophils % (Manual) 0 (0-1) % Metamyelocytes % Not Reportable Myelocytes % Not Reportable Promyelocytes % Not Reportable Blast Cells Not Reportable WBC Morphology Comment Normal morphology Normal morphology (NORM) Plt Morphology Comment Normal morphology Normal morphology (NORM) RBC Morph Comment Normal morphology Normal morphology (NORM) ESR (0-20) MM/HR PT 12.4 H INR 1.20 APTT 29.8 dRVVT Screen 50:50 Lupus Anticoag Interp VBG pH (7.32-7.42) VBG pCO2 (45-55) mmHg VBG HCO3 (22-26) mmol/L VBG Base Excess (-2-2) MMOL/L Sodium 133 L 137 (135-145) meq/L Potassium 3.2 L 3.4 L (3.8-5.2) meq/L Chloride 99 104 (98-112) meq/L Carbon Dioxide 23 22 L (23-33) meq/L Anion Gap 11 11 (5-20) BUN 9 12 (7-22) mg/dL Creatinine 0.5 0.6 (0.50-1.20) mg/dL Estimated GFR > 60 > 60 (>60 ml/min/1.73m(2)) BUN/Creatinine Ratio 18.00 20.00 (6-20) Glucose 112 H 112 H (78-110) mg/dL Calculated Osmolality 275.0 284.0 (267-292) mOsm/kg Lactic Acid (0.70-2.10) MMOL/L Uric Acid (2.5-7.5) mg/dl Calcium 9.2 9.2 (8.7-10.7) mg/dL Magnesium (1.6-2.4) mg/dL Total Bilirubin (0.3-1.2) mg/dL AST (8-39) IU/L ALT (9-52) IU/L Alkaline Phosphatase (38-126) IU/L Ammonia (9.0-33.0) UMOL/L Troponin I (< 0.040) ng/mL C-Reactive Protein 21.9 H (0.0-0.9) mg/dL NT-Pro-B Natriuret Pep (0-125) PG/ML Total Protein (6.1-8.0) g/dL Albumin (3.5-4.8) g/dL Globulin (2.50-4.10) g/dL Albumin/Globulin Ratio (1.3-2.0) mg/g Amylase (30-110) U/L Lipase (23-300) IU/L Serum HCG, Qual Ur Collection Type Voided specimen Urine Color Urine Clarity (CLEAR) Urine pH (5.0-8.5) Ur Specific [place] (1.005-1.030) U Specif Grav (Refrac) 1.010 Urine Protein (NEG) mg/dl Urine Glucose (UA) (NEG) mg/dL Urine Ketones (NEG) Urine Occult Blood (NEG) Urine Nitrate (NEG) Urine Bilirubin (NEG) Urine Urobilinogen (0.2) EU/dL Ur Leukocyte Esterase (NEG) Urine RBC (NONE) /hpf Urine WBC (NONE) Ur Squamous Epith Cells (NONE) Ur Renal Epithelial Cell (NONE) Urine Crystals Urine Bacteria (NONE) Urine Casts (NONE) Urine Mucus (NONE) Urine Trichomonas (NONE) Urine Yeast (NONE) Ur Culture Indicated? Urine Opiates Screen Negative (NEG) Ur Buprenorphine Negative (NEG) Ur Oxycodone Screen Negative (NEG) Urine Methadone Screen Negative (NEG) Ur Propoxyphene Screen Negative (NEG) Barbiturate Screen Negative (NEG) U Tricyclic Antidepress Negative (NEG) Phencyclidine Screen Negative (NEG) Amphetamines Screen Negative (NEG) U Methamphetamines Scrn Negative (NEG) Benzodiazepines Screen Positive H (NEG) Cocaine Screen Negative (NEG) U Marijuana (THC) Screen Negative (NEG) Serum Alcohol (0-10) mg/dL IgE (<= 214) kU/L Cryoglobulin KONST[place]IN Cryoglobulin Rheumatoid Factor (<15) IU/mL Anti-Nuclear Antibody (()) U c-ANCA Anti-Proteinase 3 (()) U p-ANCA Anti-Myeloperoxidase (()) U Glomerular Base Mem IgG (()) U Anti-Streptolysin Titr (0 - 530) IU/mL Anti-DNase B (Strep) (0 - 300) U/mL 12/19/16 12/20/16 Range/Units 06:24 05:40 WBC 16.07 H (4.8-10.8) 10^3/uL RBC 3.56 L (4.20-5.40) 10^6/uL Hgb 11.5 L (12.0-16.0) g/dL Hct 34.7 L (37.0-47.0) % MCV 97.5 (81-99) FL MCH 32.3 H (27-31) PG MCHC 33.1 (33-37) g/dL RDW Std Deviation 55.1 H (39-50) fL RDW Coeff of Farzad 15.9 H (11.5-14.5) % Plt Count 564 H (140-350) 10*3/uL MPV 9.4 (7.4-12.2) FL Immature Gran % (Auto) (0-5) % Neut % (Auto) (50-80) % Lymph % (Auto) (10-50) % [place] % (Auto) (5-15) % Eos % (Auto) (0-8) % Baso % (Auto) (0-1) % Immature Gran # (Auto) 10*3/UL Neut # (Auto) 10*3/UL Lymph # (Auto) 10*3/uL [place] # (Auto) (0.3-0.8) 10*3/UL Eos # (Auto) 10*3/UL Baso # (Auto) 10*3/UL Neutrophils % (Manual) 86 H (50-80) % Band Neutrophils % 0 (0-10) % Lymphocytes % (Manual) 12 (10-50) % Monocytes % (Manual) 2 (0-12) % Eosinophils % (Manual) 0 (0-8) % Basophils % (Manual) 0 (0-1) % Metamyelocytes % Not Reportable Myelocytes % Not Reportable Promyelocytes % Not Reportable Blast Cells Not Reportable WBC Morphology Comment Normal morphology (NORM) Plt Morphology Comment Normal morphology (NORM) RBC Morph Comment Normal morphology (NORM) ESR 91 H (0-20) MM/HR PT INR APTT dRVVT Screen 50:50 Lupus Anticoag Interp VBG pH (7.32-7.42) VBG pCO2 (45-55) mmHg VBG HCO3 (22-26) mmol/L VBG Base Excess (-2-2) MMOL/L Sodium 136 136 (135-145) meq/L Potassium 3.5 L 4.3 (3.8-5.2) meq/L Chloride 104 102 (98-112) meq/L Carbon Dioxide 21 L 21 L (23-33) meq/L Anion Gap 11 13 (5-20) BUN 15 18 (7-22) mg/dL Creatinine 0.6 0.5 (0.50-1.20) mg/dL Estimated GFR > 60 > 60 (>60 ml/min/1.73m(2)) BUN/Creatinine Ratio 25.00 H 36.00 H (6-20) Glucose 139 H 247 H (78-110) mg/dL Calculated Osmolality 284.0 291.0 (267-292) mOsm/kg Lactic Acid (0.70-2.10) MMOL/L Uric Acid (2.5-7.5) mg/dl Calcium 9.5 9.9 (8.7-10.7) mg/dL Magnesium (1.6-2.4) mg/dL Total Bilirubin 0.3 D (0.3-1.2) mg/dL AST 23 (8-39) IU/L ALT 35 (9-52) IU/L Alkaline Phosphatase 86 (38-126) IU/L Ammonia (9.0-33.0) UMOL/L Troponin I (< 0.040) ng/mL C-Reactive Protein 2.3 H (0.0-0.9) mg/dL NT-Pro-B Natriuret Pep (0-125) PG/ML Total Protein 6.9 (6.1-8.0) g/dL Albumin 3.8 (3.5-4.8) g/dL Globulin 3.2 (2.50-4.10) g/dL Albumin/Globulin Ratio 1.10 L (1.3-2.0) mg/g Amylase (30-110) U/L Lipase (23-300) IU/L Serum HCG, Qual Ur Collection Type Urine Color Urine Clarity (CLEAR) Urine pH (5.0-8.5) Ur Specific [place] (1.005-1.030) U Specif Grav (Refrac) Urine Protein (NEG) mg/dl Urine Glucose (UA) (NEG) mg/dL Urine Ketones (NEG) Urine Occult Blood (NEG) Urine Nitrate (NEG) Urine Bilirubin (NEG) Urine Urobilinogen (0.2) EU/dL Ur Leukocyte Esterase (NEG) Urine RBC (NONE) /hpf Urine WBC (NONE) Ur Squamous Epith Cells (NONE) Ur Renal Epithelial Cell (NONE) Urine Crystals Urine Bacteria (NONE) Urine Casts (NONE) Urine Mucus (NONE) Urine Trichomonas (NONE) Urine Yeast (NONE) Ur Culture Indicated? Urine Opiates Screen (NEG) Ur Buprenorphine (NEG) Ur Oxycodone Screen (NEG) Urine Methadone Screen (NEG) Ur Propoxyphene Screen (NEG) Barbiturate Screen (NEG) U Tricyclic Antidepress (NEG) Phencyclidine Screen (NEG) Amphetamines Screen (NEG) U Methamphetamines Scrn (NEG) Benzodiazepines Screen (NEG) Cocaine Screen (NEG) U Marijuana (THC) Screen (NEG) Serum Alcohol (0-10) mg/dL IgE (<= 214) kU/L Cryoglobulin KONSTANTIN Cryoglobulin Rheumatoid Factor (<15) IU/mL Anti-Nuclear Antibody (()) U c-ANCA Anti-Proteinase 3 (()) U p-ANCA Anti-Myeloperoxidase (()) U Glomerular Base Mem IgG (()) U Anti-Streptolysin Titr (0 - 530) IU/mL Anti-DNase B (Strep) (0 - 300) U/mL Discharge instruction Diet regular Activity as started Medications Home Medications Medication Instructions Recorded Confirmed Type Acetaminophen [Tylenol] 650 mg PO QID PRN #1 tablet. 09/10/16 12/10/16 Rx Pantoprazole Sodium [Protonix] 40 mg PO DAILY #30 tablet. 09/10/16 12/10/16 Rx Fluoxetine HCl 1 cap PO DAILY #30 cap 11/19/16 12/10/16 Clinic Amlodipine Besylate 5 mg PO DAILY #30 tablet 11/29/16 12/10/16 Clinic Clonazepam 1 tab PO BID #14 tab 11/29/16 12/10/16 Clinic Losartan/Hydrochlorothiazide 1 tab PO DAILY #30 tab 11/29/16 12/10/16 Clinic [Losartan-Hctz 100-12.5 mg Tab] Metoprolol Tartrate 25 mg PO BID #60 tab 11/29/16 12/10/16 Clinic Amox Tr/Potassium Clavulanate 1 each PO BID #8 tablet 12/21/16 Rx [Augmentin 875-125 Tablet] Furosemide [Lasix] 40 mg PO DAILY #10 tablet 12/21/16 Rx Multivitamin Tab [Thera Tab] 1 tab PO DAILY tab 12/21/16 Rx Potassium Chloride 20 meq PO DAILY #20 tab 12/21/16 Rx Prednisone 10 mg PO DAILY #16 tab 12/21/16 Rx QUEtiapine Tab [SEROquel Tab] 25 mg PO BEDTIME #30 tab 12/21/16 Rx Follow-up with PCP 1-2 weeks Condition at discharge was stable for discharge Exam - Vitals Vital Signs: Vital Signs Temperature 97.0 F Temperature Source Temporal Artery Scan Pulse Rate [Telemetry] 80 Pulse Rate [Apical] 80 Pulse Rate [Pulse Oximeter] 70 Pulse Rate 90 Respiratory Rate 20 Blood Pressure [Right Arm] 156/94 Blood Pressure [Left Arm] 138/83 Blood Pressure 157/100 Pulse Ox 92 Oxygen Flow Rate 2 Oxygen Delivery Method Room Air Height 5 ft 3 in Weight 122 lb 12.8 oz Patient Problems - Patient Problem List (1) Acute lung injury Status: Acute Qualifiers: Encounter type: initial encounter Qualified Description: Acute lung injury, initial encounter Qualifier Code(s): (S27.309A) Unspecified injury of lung, unspecified, initial encounter (2) Hypertension Status: Acute Qualifiers: Hypertension type: essential hypertension Qualified Description: Essential hypertension Qualifier Code(s): (I10) Essential (primary) hypertension (3) Anxiety Status: Acute
[2016-12-21 13:58] LABS: ACTIVATED PARTIAL THROMBOPL TI 28; DRVVT SCREEN RATIO 1.4
[2016-12-22 08:41] LABS: INTERPRETATION SEE COMMENTS (()); PROTHROMBIN TIME (PT) 15.9 sec (())
[2016-12-22 11:29] LABS: PT MIX 1:1 12.5
--- NOTE | 2016-12-23 10:02 | OT AM DAY ---
Diagnosis : Right Rotator Cuff Tear AM - Occupational Therapy S: The patient states that she will be discharged today but she is willing to go down for therapy. O: The patient was seen in therapy. She received an application of moist heat pack x15 minutes including set up to the right shoulder followed by manual therapy in the form of passive range of motion to her right upper extremity. The patient displays approximately 140-150 degrees of flexion and abduction. The patient completed upper extremity ronny activity in flexion and abduction to increase motion. A: The patient may continue to benefit from therapy in an outpatient setting to work on overall range of motion in her right upper extremity. P: Patient will be discharged to home. MTDD
== END 2016-12-21 11:15 | disposition home or self-care (01) | DRG 439 ==
LOC: ER 01:11 → MED/SURG 03:53
PROVIDERS: ADMIT Family Medicine; ATTEND Family Medicine
DX: K85.20 Alcohol induced acute pancreatitis without necrosis or infection (principal); S27.309A Unspecified injury of lung, unspecified, initial encounter; E87.1 Hypo-osmolality and hyponatremia; F10.151 Alcohol abuse with alcohol-induced psychotic disorder with hallucinations; I10 Essential (primary) hypertension; F41.9 Anxiety disorder, unspecified; N20.0 Calculus of kidney; K76.0 Fatty (change of) liver, not elsewhere classified; E83.42 Hypomagnesemia
CPT/HCPCS: 36415; 36569; 71010; 71020; 71260; 73030; 74177; 76937; 80048; 80053; 80305; 80320; 81001; 81003; 82140; 82150; 82595; 82785; 82803; 83516; 83520; 83605; 83690; 83735; 83880; 84132; 84484; 84550; 84703; 85007; 85025; 85390; 85610; 85611; 85613; 85652; 85670; 85730; 86038; 86060; 86140; 86215; 86431; 87040; 87804; 93005; 93010; 93306; 94150; 94640; 94761; 96361; 96372; 96374; 97110; 97112; 97162; 97165; 97530; 99284; J0131; J0696; J1170; J1940; J2060; J2405; J2550; J2920; J3360; J3475; J3480; J3490; J7030; J7040; J7050

== ENCOUNTER 2017-02-26 15:29 | Emergency (ER) | payer SELFPAY ==
[2017-02-26 15:46] VITALS: RESP 20; TEMP 95.6
[2017-02-26] MEDS ORDERED: NORMAL SALINE 10 ML SYRINGE FLUSH IVP PRN (15:46)
[2017-02-26] MEDS: LORazepam 2 MG/1 ML VIAL IVP ONE ×2 (16:00→20:43)
[2017-02-26 16:05] LABS: BASOPHILS # (AUTO) 0.11 10*3/UL; BASOPHILS % (AUTO) 2.3 % (0-1); EOSINOPHILS # (AUTO) 0.03 10*3/UL; EOSINOPHILS % (AUTO) 0.6 % (0-8); HEMATOCRIT 39.1 % (37.0-47.0); HEMOGLOBIN 14.2 g/dL (12.0-16.0); LYMPHOCYTES # (AUTO) 1.85 10*3/uL; MEAN CORPUSCULAR HEMOGLOBIN 34.6 PG (27-31); MEAN CORPUSCULAR HGB CONC 36.3 g/dL (33-37); MEAN CORPUSCULAR VOLUME 95.4 FL (81-99); MEAN PLATELET VOLUME 8.4 FL (7.4-12.2); MONOCYTES # (AUTO) 0.32 10*3/UL (0.3-0.8); MONOCYTES % (AUTO) 6.6 % (5-15); NEUTROPHILS # (AUTO) 2.54 10*3/UL
[2017-02-26] MEDS: ONDANSETRON 4 MG/2 ML VIAL IVP ONE ×2 (16:05→18:54)
[2017-02-26] MEDS: Sodium Chloride 0.9% 1,000 ML PRIMARY IV ONE (16:06)
[2017-02-26 16:07] LABS: PLATELET MORPHOLOGY COMMENT NORMAL MORPHOLOGY (NORM); RBC MORPHOLOGY COMMENT NORMAL MORPHOLOGY (NORM); WBC MORPHOLOGY COMMENT NORMAL MORPHOLOGY (NORM)
[2017-02-26] MEDS: Sodium Chloride 0.9% 1,000 ML, Magnesium Sulfate 2gm (Premix) 50 ML with Multivitamin I... IV ONE ×5 (16:09)
[2017-02-26 16:13] LABS: BLOOD UREA NITROGEN 13 mg/dL (7-22); BUN/CREATININE RATIO 18.57 (6-20); CALCIUM 9.6 mg/dL (8.7-10.7); EST GLOMERULAR FILTRATION > 60 (>60 ml/min/1.73m(2)); LIPASE 41 IU/L (23-300); MAGNESIUM 1.3 mg/dL (1.6-2.4)
[2017-02-26 19:23] LABS: BILIRUBIN,URINE NEGATIVE (NEG); COLOR,URINE YELLOW; GLUCOSE, URINE (UA) NEGATIVE (NEG); NITRATE,URINE NEGATIVE (NEG); OCCULT BLOOD,URINE NEGATIVE (NEG); PH,URINE 6.5 (5.0-8.5); PROTEIN,URINE NEGATIVE (NEG); UROBILINOGEN,URINE 0.2 EU/dL (0.2)
[2017-02-26 19:24] LABS: CLARITY,URINE CLEAR (CLEAR); URINE SAMPLE TYPE CLEAN CATCH URINE; URINE SPECIFIC GRAVITY - MAN 1.015
[2017-02-26 19:32] LABS: AMPHETAMINE SCREEN NEGATIVE (NEG); CANNABINOID SCREEN,URINE NEGATIVE (NEG); COCAINE SCREEN NEGATIVE (NEG); METHADONE URINE SCREEN NEGATIVE (NEG); METHAMPHETAMINES SCREEN,URINE NEGATIVE (NEG); OPIATE SCREEN,URINE NEGATIVE (NEG)
[2017-02-26] MEDS: PROMETHAZINE 25 MG/1 ML VIAL IM ONE (20:20)
--- NOTE | 2017-02-26 23:57 | DI ---
HISTORY: Abdominal pain. COMPARISON: Prior study dated 12/10/2016. TECHNIQUE: Helical CT scanning was performed from the lung bases, through the abdomen and pelvis, to the level of lesser trochanters following the administration of IV contrast material. MPR. Overall i mage quality satisfactory. FINDINGS: LUNG BASES/LOWER HEART: Basilar atelectasis, no focal basilar consolidation, pleural effusion or pne umothorax. No pericardial effusion. ABDOMEN/PELVIS: LIVER: Hepatic steatosis and hepatomegaly. GALLBLADDER:Surgically absent. PANCREAS: Pancreatic calcifications, no focal inflammatory change. ADRENAL GLANDS: Maintain their triangular shape. SPLEEN: Normal enhancement pattern. KIDNEYS: Left-sided parenchymal calculi are noted. Left duplex kidney. Hypodense bilateral renal lesi ons, ultrasound can further evaluate. GREAT VESSELS: Enhance unremarkably, noting atherosclerotic vascular changes of the aorta and its bra nch vessels. VARIABLY DISTENDED BOWEL LOOPS: Non-obstructive bowel gas pattern. Few colonic divericuli without ad jacent inflammatory change noted. APPENDIX: No inflammatory change in the right lower quadrant. INTERNAL ORGANS: Present. OSSEOUS STRUCTURES: No acute osseous abnormality. Multilevel thoracic and lumbar degenerative change s. Right lower chronic rib fractures. IMPRESSION: 1. No acute intra-abdominal or pelvic inflammatory process. Prior pancreatic stranding has resolved. 2. Hepatic steatosis and hepatomegaly. Consider GI referral. 3. Hypodense bilateral renal lesions, indeterminate on the current examination. Non-urgent ultrasoun d recommended for further evaluation. No hydronephrosis.
--- NOTE | 2017-02-27 01:13 | PDOC ---
General Adult HPI - General Chief Complaint: Nausea / Vomiting / Diarrhea Stated Complaint: vomiting Date Seen by Provider: 02/26/17 Time Seen by Provider: 15:35 Source: POSITIVE: Patient, Old records Exam Limitations: POSITIVE: No limitations Nurse's Notes Reviewed & Considered: Yes - History of Present Illness Initial Comment: The patient is a 47-year-old female. She is a well-known chronic alcoholic. 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 She states that for the past 4 days she's been on an alcoholic binge. She states she's had some vomiting for the last day, although she states she still has continued to consume alcohol and last had any alcohol about one hour [employer]. She also complains of some epigastric pain. She states she's had an appendectomy and a cholecystectomy. Have you received a tetanus shot in the past 10 years?: Yes Body Location Affected: REPORTS: Abdomen Timing: REPORTS: Gradual, Getting Worse Duration: >24 hours (4 days) Severity: Moderate Quality: REPORTS: "Pain" (Upper abdominal discomfort with vomiting for the past day) Context: DENIES: None, Sitting, Standing, Activity, Emotional stress, Coughing, Recent Trauma, Recent Surgery, Sleep, Rest, Lifting, Turning, Bending, Fall, Near Fall, Other Modifying Factors: improves with: Vomiting Associated Symptoms: Alcohol abuse, acute on chronic. No diarrhea. No melena, hematochezia or hematemesis, no fevers or chills. Similar Symptoms Previously: Yes Recent Care Received: REPORTS: Denies Any Prior Injuries Related to Current Complaint?: No - Patient Home Medications Home Medications: Home Medications Fluoxetine HCl 1 cap PO DAILY #30 cap 11/19/16 Amlodipine Besylate 5 mg PO DAILY #30 tablet 11/29/16 Losartan/Hydrochlorothiazide [Losartan-Hctz 100-12.5 mg Tab] 1 tab PO DAILY #30 tab 11/29/16 Metoprolol Tartrate 25 mg PO BID #60 tab 11/29/16 Ibuprofen 1 tab PO BID tab 12/27/16 Quetiapine Fumarate [Seroquel] 50 mg PO QHS #30 tab 12/27/16 Clonazepam 1 tab PO BID #28 tab 01/10/17 - Patient Allergies Allergies/Adverse Reactions: Allergies Allergy/AdvReac Type Severity Reaction Status Date / Time codeine AdvReac HALLUCINATI Verified 02/26/17 15:36 ONS levofloxacin [From Levaquin] AdvReac HALLUCINATI Verified 02/26/17 15:36 ONS oxycodone AdvReac HALLUCINATI Verified 02/26/17 15:36 ONS Past Medical History - heen HEENT History: Other (please comment) Additional HEENT History: WEARS GLASSES. "BULL'S EYE VISION" Cardiovascular History: Hypertension, Other (please comment) Additional Cardiovasular History: PALPITATIONS Respiratory History: Pneumonia, Snoring, Other (please comment) Additional Respiratory History: chronic tobacco use Gastrointestinal History: GERD, Gallbladder Disease, Pancreatitis, Other ( please comment) Additional Gastrointestinal History: Chronic alcoholism. elevated liver enzymes Genitourinary History: Denies History Endocrine History: Denies History Musculoskeletal History: Joint Pain, Other (please comment) Prosthesis or Implant: Yes (BREAST AUGMENTATION) Additional Musculoskeletal History: Pt fell down several stairs and fractured right shoulder. Pt had surgery on shoulder to repair fracture. X2 Neurological History: Seizures, Other (please comment) Additional Neurological History: SEIZURE WITH DETOX Blood Disorders: Denies History Psychiatric History: Depression, Anxiety Disorders, Substance Abuse Additional Psychiatric History: ALCOHOLISM: CHRONIC AND RECURRENT. PANIC DISORDER. PATIENT RECENTLY ATTEMPTED REHAB History of Sexually Transmitted Diseases: No Cancer History: Denies History In Past Year Been Physically Harmed or Verbally Threatened: No History of MDRO: Yes Other Type of MDRO: TESTED POSITIVE 2014 FOLLOWED BY 2 NEG SWABS History of Other Communicable Diseases: Yes (MONO, VARICELLA) Tobacco Use: Current Every Day Smoker Alcohol Use: Heavy Substance Use Type: None Previous Surgical History: Yes Type / Date of Surgery: APPENDECTOMY, CHOLECYSTECTOMY, ABDOMINOPLASTY, BREAST AUGMENTATION, Right shoulder surgeryX2 Anesthesia Reactions: No Malignant Hyperthermia: No Significant Family History: Asthma, Heart disease, Cancer, Diabetes, Hypertension Additional Family History: EARLY MENOPAUSE - MOTHER Past Medical History Reviewed: Reviewed - No Changes ROS - Limitations ROS Limitations: No Limitations, Other (please comment) (Intoxicated but cooperative. Smells heavily of alcohol.) Constitution: REPORTS: Denies Symptoms Cardiovascular: REPORTS: Denies Cardiac Symptoms Respiratory: REPORTS: Denies Resp Symptoms Neurological: REPORTS: Denies Neuro Symptoms Gastrointestinal: REPORTS: Abdominal Pain, Nausea, Vomitting Endocrine: REPORTS: Denies Symptoms Musculoskeletal: REPORTS: Denies MS Symptoms Genitourinary: REPORTS: Denies Symptoms Eyes: REPORTS: Denies Symptoms ENT: REPORTS: Denies Symptoms Skin: REPORTS: Denies Skin Symptoms Lympathic: REPORTS: Denies Lympathic Symptoms Immunologic: POSITIVE: Denies Symptoms Psychiatric: POSITIVE: Anxiety General Adult Exam - General Appearance General Appearance: POSITIVE: Alert, Cooperative, No Evidence of Trauma, Moderate Distress. NEGATIVE: No Acute Distress - HEENT HEENT: POSITIVE: Head Inspection Nml, Eyes Inspection Nml, Ears Inspection Nml, Nose Inspection Nml, Oral/Dental Inspect. Nml, Pharynx Inspect. Nml, PERRL, EOMI - Pupils Pupil Size: 4 mm: Bilateral (PERRLA) - Neck Neck: POSITIVE: Normal Inspection, Thyroid Normal - Respiratory Respiratory: POSITIVE: No Respiratory Distress, Breath Sounds Normal, Chest Non- Tender - Cardiovascular Cardiovascular: POSITIVE: Regular Rate & Rhythm, No Murmur, No Gallop, PMI Normal Peripheral Pulses: Radial (R): 2+, Radial (L): 2+ - Abdomen Abdomen: Soft: (All Quadrants), Normal Bowel Sounds: (All Quadrants), Denies Tenderness: (LLQ), (RLQ), No Splenomegaly: (All Quadrants), No Hepatomegaly: ( All Quadrants), No Guarding: (All Quadrants), No Rebound: (All Quadrants), No Palpable Pulse: (All Quadrants), No Palpabale Mass: (All Quadrants), No Distention: (All Quadrants), No Rigidity: (All Quadrants), Tenderness Noted: ( RUQ), (LUQ) Additional Abdominal Details: Abdominal examination shows bowel sounds to be present. Patient does express some poorly localized discomfort in the left and upper abdominal quadrants. No masses or organomegaly or rebound. Patient had 3 or 4 episodes of vomiting shortly after she arrived in the emergency room. 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, contact printer dry film Normal As Tested, Motor Normal, Sensation Normal, 5, 6 Images - Complete Complete: 1 - Area of described discomfort General Adult Progress - Results Reviewed by me Xrays/CTs/US Reviewed by me: Yes Discussed with Radiologist: Yes Radiology Findings: CT scan abdomen and pelvis with IV contrast shows no acute pathology. Lab Results Reviewed: Yes (amylase and lipase normal; blood alcohol elevated) Lab Results:: Laboratory Results 02/26/17 02/26/17 02/26/17 Range/Units 15:56 18:59 19:23 WBC 4.88 (4.8-10.8) 10^3/uL RBC 4.10 L (4.20-5.40) 10^6/uL Hgb 14.2 (12.0-16.0) g/dL Hct 39.1 (37.0-47.0) % MCV 95.4 (81-99) FL MCH 34.6 H (27-31) PG MCHC 36.3 (33-37) g/dL RDW Std Deviation 51.7 H (39-50) fL RDW Coeff of Farzad 15.3 H (11.5-14.5) % Plt Count 309 (140-350) 10*3/uL MPV 8.4 (7.4-12.2) FL Immature Gran % (Auto) 0.6 (0-5) % Neut % (Auto) 52.0 (50-80) % Lymph % (Auto) 37.9 (10-50) % [place] % (Auto) 6.6 (5-15) % Eos % (Auto) 0.6 (0-8) % Baso % (Auto) 2.3 H (0-1) % Immature Gran # (Auto) 0.03 10*3/UL Neut # (Auto) 2.54 10*3/UL Lymph # (Auto) 1.85 10*3/uL [place] # (Auto) 0.32 (0.3-0.8) 10*3/UL Eos # (Auto) 0.03 10*3/UL Baso # (Auto) 0.11 10*3/UL WBC Morphology Comment Normal morphology (NORM) Plt Morphology Comment Normal morphology (NORM) RBC Morph Comment Normal morphology (NORM) Sodium 140 (135-145) meq/L Potassium 3.5 L (3.8-5.2) meq/L Chloride 96 L (98-112) meq/L Carbon Dioxide 17 L (23-33) meq/L Anion Gap 27 H (5-20) BUN 13 (7-22) mg/dL Creatinine 0.7 (0.50-1.20) mg/dL Estimated GFR > 60 (>60 ml/min/1.73m(2)) BUN/Creatinine Ratio 18.57 (6-20) Glucose 164 H (78-110) mg/dL Calculated Osmolality 293.0 H (267-292) mOsm/kg Calcium 9.6 (8.7-10.7) mg/dL Magnesium 1.3 L (1.6-2.4) mg/dL Total Bilirubin 0.9 (0.3-1.2) mg/dL AST 152 H (8-39) IU/L ALT 69 H (9-52) IU/L Alkaline Phosphatase 116 (38-126) IU/L Total Protein 8.3 H (6.1-8.0) g/dL Albumin 5.0 H (3.5-4.8) g/dL Globulin 3.3 (2.50-4.10) g/dL Albumin/Globulin Ratio 1.50 (1.3-2.0) mg/g Amylase 62 (30-110) U/L Lipase 41 (23-300) IU/L Ur Collection Type Clean catch urine Urine Color Yellow Urine Clarity Clear (CLEAR) Urine pH 6.5 (5.0-8.5) Ur Specific [place] 1.015 (1.005-1.030) U Specif Grav (Refrac) 1.015 Urine Protein Negative (NEG) mg/dl Urine Glucose (UA) Negative (NEG) mg/dL Urine Ketones 40 (NEG) Urine Occult Blood Negative (NEG) Urine Nitrate Negative (NEG) Urine Bilirubin Negative (NEG) Urine Urobilinogen 0.2 (0.2) EU/dL Ur Leukocyte Esterase Negative (NEG) Ur Culture Indicated? Culture not set Urine Opiates Screen Negative (NEG) Ur Buprenorphine Negative (NEG) Ur Oxycodone Screen Negative (NEG) Urine Methadone Screen Negative (NEG) Ur Propoxyphene Screen Negative (NEG) Barbiturate Screen Negative (NEG) U Tricyclic Antidepress Negative (NEG) Phencyclidine Screen Negative (NEG) Amphetamines Screen Negative (NEG) U Methamphetamines Scrn Negative (NEG) Benzodiazepines Screen Positive H (NEG) Cocaine Screen Negative (NEG) U Marijuana (THC) Screen Negative (NEG) Serum Alcohol 142 H (0-10) mg/dL - Patient's Progress Pain Medication Addressed: POSITIVE: Yes (Protonix, 40 mg IV) School/Work Release Addressed: POSITIVE: Not Applicable Re-Examine Time: 00:05 Re-Examine Comment: Patient hydrated in the emergency room. Patient also administered a banana bag of thiamine 100 mg, [place] catheter 1 mg and magnesium sulfate 2 g. Patient quite anxious on her initial presentation. Patient given 2 mg of Ativan, since it was some concern about withdrawal. Patient also given Protonix IV. Later on patient was given another 2 mg of Ativan. Patient observed in the emergency room for several hours and on discharge patient is alert with no signs of withdrawal. Patient has a long-standing history of similar episodes in patient is thought to have an alcoholic gastritis. No evidence of pancreatitis at this time. Status: POSITIVE: Improved, Re-Examined Antibiotics Given: No - Consult Counseled: POSITIVE: Patient, RE: Lab Results, RE: Radiology Results, RE: DX, RE : Need for F/U Patient Care Time - Estimated PCT Patient Care Time (In Minutes): 75 Vital Signs - VS Reviewed Vital Signs Reviewed: Yes Discharge Clinical Impression: Alcohol abuse, Nausea and vomiting, Chronic alcohol abuse, Alcoholic gastritis Discharge Disposition: Discharged to Home Condition: Stable Patient Instructions Given at Discharge: Gastritis (ED), Abuse of Alcohol (ED) Additional Instructions: Please abstain from further alcohol use. Take Zantac or Protonix, over-the- counter. Follow-up with your primary care provider. Would also recommend that you follow-up with your alcohol abuse counselor. Return here anytime as necessary. Follow Up With: KITTY LAGUNA [Primary Care Provider] - (Instructions as above. Follow-up with your primary care provider. Return as necessary.)
== END 2017-02-27 00:25 | disposition home or self-care (01) ==
LOC: ER 15:29
DX: F10.129 Alcohol abuse with intoxication, unspecified (principal); K29.20 Alcoholic gastritis without bleeding; R10.13 Epigastric pain; R11.2 Nausea with vomiting, unspecified
CPT/HCPCS: 74177; 80053; 80305; 80320; 81003; 82150; 83690; 83735; 85025; 96361; 96365; 96372; 96375; 96376; 99283; J2060; J2405; J2550; J3411; J3475; J3490; J7030; J7050

== ENCOUNTER 2017-02-27 14:15 | Emergency (ER) | payer SELFPAY ==
[~2017-02-27 14:15] MED LIST: Sodium Chloride 0.9% 1,000 ML ONE
[2017-02-27 14:37] VITALS: RESP 16; TEMP 97.1
--- NOTE | 2017-02-27 14:39 | PDOC ---
Shoulder Injury/Pain HPI - General Chief Complaint: Upper Extremity Problem/Injury Stated Complaint: fall Date Seen by Provider: 02/27/17 Time Seen by Provider: 14:34 Source: POSITIVE: Patient Exam Limitations: POSITIVE: No limitations Nurse's Notes Reviewed & Considered: Yes - History of Present Illness Initial Comments: Patient comes in today chief complaint of right shoulder pain. This patient is well-known to the emergency department for frequent visits for various pain complaints. She did fall and had an shoulder fracture that required ORIF several months ago. sHe continues to consume alcohol and is at risk for falls. She denies any other symptoms. She has complaints of pain in her right shoulder but has good range of motion and was able to attend the cafeteria in the hospital earlier today where I observed her carrying her tray and conversing with her family with no evidence of pain cues. Have you received a tetanus shot in the past 10 years?: Yes Location: Right Shoulder Timing: REPORTS: Abrupt Duration: <24 hours Severity: Moderate Quality: REPORTS: "Pain" Location at Time of Onset: REPORTS: Home Context: REPORTS: Fall Any Prior Injuries Related to Current Complaint?: Yes (ORIF right shoulder.) - Patient Home Medications Home Medications: Home Medications Fluoxetine HCl 1 cap PO DAILY #30 cap 11/19/16 Amlodipine Besylate 5 mg PO DAILY #30 tablet 11/29/16 Losartan/Hydrochlorothiazide [Losartan-Hctz 100-12.5 mg Tab] 1 tab PO DAILY #30 tab 11/29/16 Metoprolol Tartrate 25 mg PO BID #60 tab 11/29/16 Ibuprofen 1 tab PO BID tab 12/27/16 Quetiapine Fumarate [Seroquel] 50 mg PO QHS #30 tab 12/27/16 Clonazepam 1 tab PO BID #28 tab 01/10/17 - Patient Allergies Allergies/Adverse Reactions: Allergies Allergy/AdvReac Type Severity Reaction Status Date / Time codeine AdvReac HALLUCINATI Verified 02/27/17 14:25 ONS levofloxacin [From Levaquin] AdvReac HALLUCINATI Verified 02/27/17 14:25 ONS oxycodone AdvReac HALLUCINATI Verified 02/27/17 14:25 ONS Past Medical History - heen HEENT History: Other (please comment) Additional HEENT History: WEARS GLASSES. "BULL'S EYE VISION" Cardiovascular History: Hypertension, Other (please comment) Additional Cardiovasular History: PALPITATIONS Respiratory History: Pneumonia, Snoring, Other (please comment) Additional Respiratory History: chronic tobacco use Gastrointestinal History: GERD, Gallbladder Disease, Pancreatitis, Other ( please comment) Additional Gastrointestinal History: Chronic alcoholism. elevated liver enzymes Genitourinary History: Denies History Endocrine History: Denies History Musculoskeletal History: Joint Pain, Other (please comment) Prosthesis or Implant: Yes (BREAST AUGMENTATION) Additional Musculoskeletal History: Pt fell down several stairs and fractured right shoulder. Pt had surgery on shoulder to repair fracture. X2 Neurological History: Seizures, Other (please comment) Additional Neurological History: SEIZURE WITH DETOX Blood Disorders: Denies History Psychiatric History: Depression, Anxiety Disorders, Substance Abuse Additional Psychiatric History: ALCOHOLISM: CHRONIC AND RECURRENT. PANIC DISORDER. PATIENT RECENTLY ATTEMPTED REHAB History of Sexually Transmitted Diseases: No Cancer History: Denies History History of MDRO: Yes Other Type of MDRO: TESTED POSITIVE 2014 FOLLOWED BY 2 NEG SWABS History of Other Communicable Diseases: Yes (MONO, VARICELLA) Alcohol Use: Heavy Substance Use Type: None Previous Surgical History: Yes Type / Date of Surgery: APPENDECTOMY, CHOLECYSTECTOMY, ABDOMINOPLASTY, BREAST AUGMENTATION, Right shoulder surgeryX2 Anesthesia Reactions: No Malignant Hyperthermia: No Significant Family History: Asthma, Heart disease, Cancer, Diabetes, Hypertension Additional Family History: EARLY MENOPAUSE - MOTHER ROS - Limitations ROS Limitations: No Limitations Constitution: REPORTS: Denies Symptoms Cardiovascular: REPORTS: Denies Cardiac Symptoms Respiratory: REPORTS: Denies Resp Symptoms Neurological: REPORTS: Denies Neuro Symptoms Gastrointestinal: REPORTS: Denies GI Symptoms Endocrine: REPORTS: Denies Symptoms Musculoskeletal: REPORTS: Joint Pain (Right shoulder) Genitourinary: REPORTS: Denies Symptoms Eyes: REPORTS: Denies Symptoms ENT: REPORTS: Denies Symptoms Skin: REPORTS: Denies Skin Symptoms Lympathic: REPORTS: Denies Lympathic Symptoms Immunologic: POSITIVE: Denies Symptoms Psychiatric: POSITIVE: Denies Psych Symptoms Shoulder Injury/Pain Exam - General Appearance General Appearance: POSITIVE: Alert, Cooperative, No Acute Distress, No Evidence of Trauma - Upper Extremity Shoulder: POSITIVE: Normal Inspection, Full ROM, No Dislocation, Soft-Tissue Tenderness (Right shoulder) Upper Extremity: POSITIVE: Uninjured Below Shoulder Neuro/Vascular: POSITIVE: Sensation Normal, Motor Normal, Sensory Deficit Skin: POSITIVE: Warm, Dry - HEENT HEENT: POSITIVE: Head Inspection Nml, Eyes Inspection Nml, Ears Inspection Nml, Nose Inspection Nml, PERRL, EOMI - Neck / Back Neck/Back: POSITIVE: Normal Inspection, Non-Tender, Painless ROM - Respiratory / CVS Respiratory / CVS: POSITIVE: No Respiratory Distress - Abdomen Abdomen: Denies Tenderness: (All Quadrants) Shoulder Pain/Injury Progress - Results Reviewed by me Xrays/CTs/US Reviewed by me: Yes Discussed with Radiologist: Yes - Patient's Progress Pain Medication Addressed: POSITIVE: No Re-Examine Time:: 15:39 Status: POSITIVE: Improved MDM / ED Course: Patient was examined, x-ray examination of her shoulder was obtained. Review of her x-ray shows no acute osseous abnormality and stable hardware present. This was confirmed by radiology. Assessment: Shoulder pain. Plan: Discharge home. - Consult Counseled: POSITIVE: Patient, RE: Radiology Results, RE: DX Patient Care Time - Estimated PCT Patient Care Time (In Minutes): 20 Vital Signs - Recent Vital Signs Vital Signs: Vital Signs (Last 8 hours) Temp Pulse Resp BP Pulse Ox 02/27/17 14:16 97.1 F 90 16 143/94 97 - VS Reviewed Vital Signs Reviewed: Yes Discharge Clinical Impression: Shoulder strain Discharge Disposition: Discharged to Home Condition: Good Patient Instructions Given at Discharge: Shoulder Sprain (ED)
--- NOTE | 2017-02-28 09:33 | DI ---
RIGHT SHOULDER, 02/27/2017 2:34 PM: Clinical History: Right shoulder pain following a fall. Previous Exam: Multiple exams from 09/13/2016 to the most recent exam of 12/17/2016. 3 views are submitted. There is no acute soft tissue, osseous, or joint abnormality. The patient is s tatus post ORIF of a severely comminuted fracture of the neck of the humerus. The fracture site has h ealed. No new fracture is identified. There is an old fracture component, probably the lateral portio n of the humeral head that is an isolated fragment. This has not healed. On the glenoid fossa view, i rregularity of the glenoid fossa has developed in this patient probably is developing arthritis. The visualized portions of the right lung show no acute infiltrate or effusion. Readin. There is no new fracture identified. Degenerative arthritic changes apparently are developing in the glenoid fossa. 2. The surgically repaired fracture involving the neck of the humerus is healed except for an isolat ed fracture fragment probably arising from the lateral aspect of the humeral head.
== END 2017-02-27 15:49 | disposition home or self-care (01) ==
LOC: ER 14:15
DX: S46.911A Strain of unspecified muscle, fascia and tendon at shoulder and upper arm level, right arm, initial encounter (principal); W19.XXXA Unspecified fall, initial encounter
CPT/HCPCS: 73030; 99282; J7030

== ENCOUNTER 2017-03-09 16:25 | Inpatient (IN) | payer SELFPAY ==
[2017-03-09] MEDS ORDERED: NORMAL SALINE 10 ML SYRINGE FLUSH IVP PRN ×2 (16:52→19:05)
[2017-03-09] MEDS ORDERED: MORPHINE SULFATE 2 MG/1 ML IV ONE (16:52)
[2017-03-09] MEDS ORDERED: Sodium Chloride 0.9% 1,000 ML PRIMARY IV ONE (16:52)
[2017-03-09] MEDS ORDERED: Pantoprazole Inj 40 MG in Normal Saline Flush 10 ML IVP ONE (16:52)
[2017-03-09] MEDS ORDERED: LORazepam 2 MG/1 ML VIAL IVP ONE ×2 (16:54→18:43)
--- NOTE | 2017-03-09 17:33 | PDOC ---
Abdomen/Flank HPI - General Chief Complaint: Abdomen Pain Stated Complaint: ABDOMINAL PAIN Date Seen by Provider: 03/09/17 Time Seen by Provider: 16:35 Source: POSITIVE: Patient Exam Limitations: POSITIVE: No limitations Nurse's Notes Reviewed & Considered: Yes - History of Present Illness Initial Comments: The patient is a 46-year-old female with a history of chronic alcoholism and recurrent pancreatitis who presents to the emergency department with epigastric abdominal pain and vomiting. She admits that she had started drinking several weeks ago after she stopped going to her [employer] meetings. She did have a period of sobriety for almost 2 months prior to that. She states that approximately 3 days ago she stopped drinking and started going to the [employer]. This morning when she woke up however she had significant epigastric abdominal pain with associated nausea and vomiting. This pain has progressively worsened throughout the day and intensified after she tried to eat some chicken noodle soup. The pain does radiate through to her back. She states that the pain does feel similar to previous pancreatitis episodes. She denies any fevers or chills or any other associated symptoms. - Patient Home Medications Home Medications: Home Medications Fluoxetine HCl 1 cap PO DAILY #30 cap 11/19/16 Amlodipine Besylate 5 mg PO DAILY #30 tablet 11/29/16 Losartan/Hydrochlorothiazide [Losartan-Hctz 100-12.5 mg Tab] 1 tab PO DAILY #30 tab 11/29/16 Metoprolol Tartrate 25 mg PO BID #60 tab 11/29/16 Ibuprofen 1 tab PO BID tab 12/27/16 Quetiapine Fumarate [Seroquel] 50 mg PO QHS #30 tab 03/01/17 - Patient Allergies Allergies/Adverse Reactions: Allergies Allergy/AdvReac Type Severity Reaction Status Date / Time codeine AdvReac HALLUCINATI Verified 03/09/17 16:32 ONS levofloxacin [From Levaquin] AdvReac HALLUCINATI Verified 03/09/17 16:32 ONS oxycodone AdvReac HALLUCINATI Verified 03/09/17 16:32 ONS Past Medical History - heen HEENT History: Other (please comment) Additional HEENT History: WEARS GLASSES. "BULL'S EYE VISION" Cardiovascular History: Hypertension, Other (please comment) Additional Cardiovasular History: PALPITATIONS Respiratory History: Pneumonia, Snoring, Other (please comment) Additional Respiratory History: chronic tobacco use Gastrointestinal History: GERD, Gallbladder Disease, Pancreatitis, Other ( please comment) Additional Gastrointestinal History: Chronic alcoholism. elevated liver enzymes Genitourinary History: Denies History Endocrine History: Denies History Musculoskeletal History: Joint Pain, Other (please comment) Prosthesis or Implant: Yes (BREAST AUGMENTATION) Additional Musculoskeletal History: Pt fell down several stairs and fractured right shoulder. Pt had surgery on shoulder to repair fracture. X2 Neurological History: Seizures, Other (please comment) Additional Neurological History: SEIZURE WITH DETOX Blood Disorders: Denies History Psychiatric History: Depression, Anxiety Disorders, Substance Abuse Additional Psychiatric History: ALCOHOLISM: CHRONIC AND RECURRENT. PANIC DISORDER. PATIENT RECENTLY ATTEMPTED REHAB History of Sexually Transmitted Diseases: No Female Reproductive History: Denies History Obstetrical History: Denies History Cancer History: Denies History In Past Year Been Physically Harmed or Verbally Threatened: No History of MDRO: Yes Other Type of MDRO: TESTED POSITIVE 2014 FOLLOWED BY 2 NEG SWABS History of Other Communicable Diseases: Yes (MONO, VARICELLA) Tobacco Use: Former Smoker Alcohol Use: Heavy Substance Use Type: None Previous Surgical History: Yes Type / Date of Surgery: APPENDECTOMY, CHOLECYSTECTOMY, ABDOMINOPLASTY, BREAST AUGMENTATION, Right shoulder surgeryX2 Anesthesia Reactions: No Malignant Hyperthermia: No Significant Family History: Asthma, Heart disease, Cancer, Diabetes, Hypertension Additional Family History: EARLY MENOPAUSE - MOTHER Past Medical History Reviewed: Reviewed - No Changes ROS - Limitations ROS Limitations: No Limitations Constitution: REPORTS: Other (She is somewhat shaky) Cardiovascular: DENIES: Chest Pain Respiratory: REPORTS: Cough Non Productive Neurological: DENIES: Confusion, Headache, Numbness, Weakness Gastrointestinal: REPORTS: Abdominal Pain, Nausea, Vomitting. DENIES: Diarrhea , Black Stools, Bloody Stools Musculoskeletal: REPORTS: Denies MS Symptoms Eyes: REPORTS: Denies Symptoms ENT: REPORTS: Denies Symptoms Skin: DENIES: Rash Abdominal/Flank Pain PE - General Appearance General Appearance: POSITIVE: Alert, Cooperative, No Acute Distress, Other (She is somewhat shaky in general) - HEENT HEENT: POSITIVE: Head Inspection Nml, Eyes Inspection Nml, Pharynx Inspect. Nml , PERRL, EOMI, Dry Mucous Membranes - Neck Neck: POSITIVE: Normal Inspection. NEGATIVE: Lymphadenopathy - Respiratory Respiratory: POSITIVE: No Respiratory Distress, Breath Sounds Normal - Cardiovascular Cardiovascular: POSITIVE: Regular Rate and Rhythm, Heart Sounds Normal Peripheral Pulses: Dorsalis-pedis (R): 2+, Dorsalis-pedis (L): 2+ - Abdomen Abdomen: Soft: (All Quadrants), Normal Bowel Sounds: (All Quadrants), No Guarding: (All Quadrants), No Rebound: (All Quadrants) Additional Abdominal Details: Tenderness in the epigastric region - Skin Skin: POSITIVE: Intact, No Rash, Other (Somewhat diffusely flush) - Extremities Extremity: Normal ROM: (All Extremities), Normal Inspection: (All Extremities) Abdomen Progress - Results Reviewed by me Lab Results Reviewed: Yes Lab Results:: Laboratory Results 03/09/17 03/09/17 Range/Units 17:30 18:25 WBC 8.52 (4.8-10.8) 10^3/uL RBC 4.23 (4.20-5.40) 10^6/uL Hgb 14.5 (12.0-16.0) g/dL Hct 39.9 (37.0-47.0) % MCV 94.3 (81-99) FL MCH 34.3 H (27-31) PG MCHC 36.3 (33-37) g/dL RDW Std Deviation 50.3 H (39-50) fL RDW Coeff of Farzad 15.1 H (11.5-14.5) % Plt Count 472 H (140-350) 10*3/uL MPV 9.0 (7.4-12.2) FL Immature Gran % (Auto) 0.4 (0-5) % Neut % (Auto) 71.7 (50-80) % Lymph % (Auto) 18.8 (10-50) % [place] % (Auto) 7.6 (5-15) % Eos % (Auto) 0.6 (0-8) % Baso % (Auto) 0.9 (0-1) % Immature Gran # (Auto) 0.03 10*3/UL Neut # (Auto) 6.11 10*3/UL Lymph # (Auto) 1.60 10*3/uL [place] # (Auto) 0.65 (0.3-0.8) 10*3/UL Eos # (Auto) 0.05 10*3/UL Baso # (Auto) 0.08 10*3/UL WBC Morphology Comment Normal morphology (NORM) Plt Morphology Comment Normal morphology (NORM) RBC Morph Comment Normal morphology (NORM) Sodium 137 (135-145) meq/L Potassium 3.1 L (3.8-5.2) meq/L Chloride 97 L (98-112) meq/L Carbon Dioxide 17 L (23-33) meq/L Anion Gap 23 H (5-20) BUN 15 (7-22) mg/dL Creatinine 0.9 (0.50-1.20) mg/dL Estimated GFR > 60 (>60 ml/min/1.73m(2)) BUN/Creatinine Ratio 16.66 (6-20) Glucose 160 H (78-110) mg/dL Calculated Osmolality 287.0 (267-292) mOsm/kg Calcium 12.6 H (8.7-10.7) mg/dL Magnesium 1.1 L (1.6-2.4) mg/dL Total Bilirubin 1.5 H (0.3-1.2) mg/dL AST 83 H (8-39) IU/L ALT 66 H (9-52) IU/L Alkaline Phosphatase 100 (38-126) IU/L C-Reactive Protein 0.8 (0.0-0.9) mg/dL Total Protein 8.6 H (6.1-8.0) g/dL Albumin 5.2 H (3.5-4.8) g/dL Globulin 3.4 (2.50-4.10) g/dL Albumin/Globulin Ratio 1.50 (1.3-2.0) mg/g Amylase 216 H (30-110) U/L Lipase 1803 H* (23-300) IU/L Ur Collection Type Clean catch urine Urine Color Yellow Urine Clarity Clear (CLEAR) Urine pH 6.5 (5.0-8.5) Ur Specific [place] 1.015 (1.005-1.030) Urine Protein Trace (NEG) mg/dl Urine Glucose (UA) Negative (NEG) mg/dL Urine Ketones Trace (NEG) Urine Occult Blood Negative (NEG) Urine Nitrate Negative (NEG) Urine Bilirubin Negative (NEG) Urine Urobilinogen 0.2 (0.2) EU/dL Ur Leukocyte Esterase Negative (NEG) Ur Culture Indicated? Culture not set Serum Alcohol < 10 (0-10) mg/dL - Patient's Progress MDM / ED Course: An IV was established and the patient did receive 1 L bolus of normal saline as well as Zofran 4 mg IV, Protonix 40 mg IV, morphine 2 mg IV and Ativan 1 mg IV. She had continued pain and shakiness. Her lab work reveals significantly elevated lipase at 1800 consistent with pancreatitis. She also has a low magnesium at 1.1 and a low potassium at 3.1. She was given 2 g of magnesium IV as well as an additional dose of morphine 4 mg IV and an additional dose of Ativan 1 mg IV. The patient is discussed with Dr. Marks who is agreed to admit the patient for further treatment. These findings and recommendations were discussed with the patient and she is in agreement with current plan. - Consult Counseled: POSITIVE: Patient, RE: Lab Results, RE: DX, RE: Need for F/U Patient Care Time - Estimated PCT Patient Care Time (In Minutes): 30 Vital Signs - Recent Vital Signs Vital Signs: Vital Signs (Last 8 hours) Temp Pulse Resp BP Pulse Ox 03/09/17 16:30 97.3 F 112 H 20 160/121 92 - VS Reviewed Vital Signs Reviewed: Yes Discharge Clinical Impression: Alcohol withdrawal, Elevated blood pressure, Alcoholic pancreatitis, Hypokalemia, Hypomagnesemia Discharge Disposition: Admit to Inpatient Condition: Stable Date Decision to Admit to Inpatient: 03/09/17 Time Decision to Admit to Inpatient: 18:00
[2017-03-09 17:42] LABS: BASOPHILS # (AUTO) 0.08 10*3/UL; BASOPHILS % (AUTO) 0.9 % (0-1); EOSINOPHILS # (AUTO) 0.05 10*3/UL; EOSINOPHILS % (AUTO) 0.6 % (0-8); HEMATOCRIT 39.9 % (37.0-47.0); HEMOGLOBIN 14.5 g/dL (12.0-16.0); MEAN CORPUSCULAR HEMOGLOBIN 34.3 PG (27-31); MEAN CORPUSCULAR HGB CONC 36.3 g/dL (33-37); MEAN CORPUSCULAR VOLUME 94.3 FL (81-99); MONOCYTES # (AUTO) 0.65 10*3/UL (0.3-0.8); MONOCYTES % (AUTO) 7.6 % (5-15); NEUTROPHILS # (AUTO) 6.11 10*3/UL; NEUTROPHILS % (AUTO) 71.7 % (50-80); RED BLOOD COUNT 4.23 10^6/uL (4.20-5.40)
[2017-03-09] MEDS: ONDANSETRON 4 MG/2 ML VIAL IVP ONE ×2 (17:43→18:55)
[2017-03-09 17:44] LABS: PLATELET MORPHOLOGY COMMENT NORMAL MORPHOLOGY (NORM); RBC MORPHOLOGY COMMENT NORMAL MORPHOLOGY (NORM); WBC MORPHOLOGY COMMENT NORMAL MORPHOLOGY (NORM)
[2017-03-09 17:49] LABS: BLOOD UREA NITROGEN 15 mg/dL (7-22); BUN/CREATININE RATIO 16.66 (6-20); CALCIUM 12.6 mg/dL (8.7-10.7); EST GLOMERULAR FILTRATION > 60 (>60 ml/min/1.73m(2)); SERUM ALBUMIN 5.2 g/dL (3.5-4.8)
[2017-03-09 17:58] LABS: LIPASE 1803 IU/L (23-300)
[2017-03-09 18:04] LABS: C-REACTIVE PROTEIN 0.8 mg/dL (0.0-0.9); MAGNESIUM 1.1 mg/dL (1.6-2.4)
[2017-03-09 18:31] LABS: BILIRUBIN,URINE NEGATIVE (NEG); COLOR,URINE YELLOW; GLUCOSE, URINE (UA) NEGATIVE (NEG); NITRATE,URINE NEGATIVE (NEG); OCCULT BLOOD,URINE NEGATIVE (NEG); PH,URINE 6.5 (5.0-8.5); PROTEIN,URINE TRACE mg/dl (NEG); UROBILINOGEN,URINE 0.2 EU/dL (0.2)
[2017-03-09 18:35] LABS: CLARITY,URINE CLEAR (CLEAR); URINE SAMPLE TYPE CLEAN CATCH URINE
[2017-03-09] MEDS ORDERED: MORPHINE SULFATE 4 MG/1 ML IVP ONE (18:44)
[2017-03-09] MEDS: Magnesium Sulfate 2gm (Premix) 2 GM in Premix 1 BAG IV ONE ×2 (18:53→18:56)
[2017-03-09] MEDS ORDERED: LIDOCAINE W/ SODIUM BICARB 0.5 ML SYR SUBD PRN (19:05)
[2017-03-09] MEDS ORDERED: Loperamide Tab 2 MG TABLET PO PRN (19:05)
[2017-03-09] MEDS ORDERED: MAG HYDROX/AL HYDROX/SIMETH 30 ML SUSP PO PRN (19:05)
[2017-03-09] MEDS ORDERED: MAGNESIUM 400 MG/5 ML - 30 ML (MILK OF MAGNESIA) PO PRN (19:05)
[2017-03-09] MEDS: NICOTINE 21 MG /DAY PATCH TRANSDERM PRN (19:47)
[2017-03-09] MEDS ORDERED: Potassium Chloride 20 mEq 20 MEQ in Premix 1 BAG IV ONE (20:09)
[2017-03-09] MEDS ORDERED: Magnesium Sulfate 4gm (Premix) 4 GM in Premix 1 BAG IV ONE (20:09)
[2017-03-09] MEDS: HYDROmorphone 2 MG/1 ML IVP PRN (20:40)
--- NOTE | 2017-03-09 21:05 | PDOC ---
History and Physical - History of Present Illness Date and Time of Service: 03/09/20172101 Chief Complaint: Abdominal pain with nausea. History of Present Illness: This is a 46-year-old female that has struggled with chronic alcoholism with recurrent pancreatitis related to alcohol abuse. She been doing fairly well outside the hospital with Alcoholics Anonymous, but stopped going to meetings and relapsed and went back to alcohol. She used heavily for about 2 weeks and stopped 3 days ago. Sometime around that time, she developed abdominal pain, quite severe in the epigastric and upper quadrant regions, associated with nausea. She came in for evaluation today, was in some mild agitation, had some tremors bilaterally, and some nausea with apparent vomiting. Her lipase was found to be elevated and her electrolytes were depleted. There were no exacerbating factors other than the fact the patient started drinking again, no interventions were tried prior to coming into the hospital for the abdominal pain or complaints. I was asked whether or not we should proceed with a CT scan , but at this point the cause seems clear from the history, and if the patient' s symptoms get worse then we can look for things like pseudocysts at that time. I do not think they are play at this moment. The patient does plan to go back and Alcoholics Anonymous after the hospital stay. I also discussed naloxone therapy with her and she is amenable to doing that. No chest pain and no shortness of breath. Past Medical History Medical History: 1. Hypertension. 2. tobacco abuse. 3. Alcohol abuse. 4. Recurrent pancreatitis. 5. Major depressive disorder versus bipolar disorder, one of the reasons patient states she drinks alcohol. 6. Medical noncompliance Surgical History: 1. History of cholecystectomy. 2. Appendectomy. 3. Breast augmentation and tummy tuck. 4. Shoulder surgery Family History: Reviewed an Not Pertinent Pertinent Family History: The patient is adopted but states her biologic mother had diabetes type II. The patient's mother when the patient was 4 years old. Her father is described as healthy. Past Social History: Smokes, drinks alcohol, lives in [place] with her father. Does not currently work. She states this is largely because of her shoulder. She does have a daughter who is about 20 years old. Tobacco Use: Current Every Day Smoker Substance Use Type: None Alcohol Use: Heavy Medication / Allergies Home Medications: Home Medications Medication Instructions Recorded Confirmed Type Fluoxetine HCl 1 cap PO DAILY #30 cap 11/19/16 03/09/17 Clinic Amlodipine Besylate 5 mg PO DAILY #30 tablet 11/29/16 03/09/17 Clinic Losartan/Hydrochlorothiazide 1 tab PO DAILY #30 tab 11/29/16 03/09/17 Clinic [Losartan-Hctz 100-12.5 mg Tab] Metoprolol Tartrate 25 mg PO BID #60 tab 11/29/16 03/09/17 Clinic Ibuprofen 1 tab PO BID tab 12/27/16 03/09/17 History Quetiapine Fumarate [Seroquel] 50 mg PO QHS #30 tab 03/01/17 03/09/17 Clinic Allergies/Adverse Reactions: Allergies Allergy/AdvReac Type Severity Reaction Status Date / Time codeine AdvReac HALLUCINATI Verified 03/09/17 16:32 ONS levofloxacin [From Levaquin] AdvReac HALLUCINATI Verified 03/09/17 16:32 ONS oxycodone AdvReac HALLUCINATI Verified 03/09/17 16:32 ONS Review of Systems - Review of Systems All Systems: Reviewed & No Additional Complaints Except as Stated (I did a 12 point review of systems and it was negative other than that stated in the history of present illness and that noted below.) - Respiratory Respiratory: REPORTS: Cough (Has been residual from prior hospital stay.) - Gastrointestinal Gastrointestinal / Abdominal: REPORTS: Nausea, Abdominal Pain, Other (I did note on the prior CT scan report for the patient and mid February that the patient had some renal lesions that were not clear in etiology. An ultrasound was recommended.) - Musculoskeletal Musculoskeletal: REPORTS: Joint Pain - Shoulders (Primarily the right shoulder) Exam - Vitals Vital Signs: Vital Signs Vital Signs - Last Taken Temperature 97.2 F 03/09/17 20:52 Pulse Rate 95 03/09/17 20:52 Respiratory Rate 22 03/09/17 20:52 Blood Pressure 168/96 03/09/17 20:52 Pulse Ox 96 03/09/17 20:52 - General General Appearance: POSITIVE: No Acute Distress, Cooperative - Head Head Exam: POSITIVE: Normal Inspection, Normocephalic, Atraumatic - Eye Eye Exam: POSITIVE: No Scleral Icterus - ENT ENT Exam: POSITIVE: Mucous Membranes Dry - Neck Neck Exam: POSITIVE: Normal Inspection, No Tenderness, No Thyromegaly - Respiratory Respiratory Exam: POSITIVE: Clear to Auscultation - Bilaterally, Breathing Non Labored, Normal to Percussion and Palpation - Cardiovascular Cardiovascular Exam: POSITIVE: RRR, No Murmur, No Clicks, No Gallops, No Rubs, No JVD - GI/Abdominal GI/Abdominal Exam: POSITIVE: Normal Bowel Sounds, Non Distended, Soft Additional GI/Abdominal Exam Details: Tender in upper quadrants. - Rectal Rectal Exam: POSITIVE: Deferred - External Exam: POSITIVE: Deferred Exam: POSITIVE: Deferred - Extremities Extremities Exam: POSITIVE: No Clubbing Present, No Edema Present, No Cyanosis Present - Back Back Exam: POSITIVE: Normal Inspection, No CVA Tenderness - Neurological Neurological Exam: POSITIVE: Alert, Oriented x 3, No Facial Droop, Speech Intact / Clear, Moves All Extremities Equally Additional Neurological Exam Details: Has bilateral hand tremors consistent with withdrawal. - Psychiatric Psychiatric Exam: POSITIVE: Anxious - Central Line Examination Central Line Present on Admission: No Results - Labs CBC and BMP: 03/09/17 17:30 03/09/17 17:30 Labs - Last 24 Hours: Laboratory Results 03/09/17 03/09/17 Range/Units 17:30 18:25 WBC 8.52 (4.8-10.8) 10^3/uL RBC 4.23 (4.20-5.40) 10^6/uL Hgb 14.5 (12.0-16.0) g/dL Hct 39.9 (37.0-47.0) % MCV 94.3 (81-99) FL MCH 34.3 H (27-31) PG MCHC 36.3 (33-37) g/dL RDW Std Deviation 50.3 H (39-50) fL RDW Coeff of Farzad 15.1 H (11.5-14.5) % Plt Count 472 H (140-350) 10*3/uL MPV 9.0 (7.4-12.2) FL Immature Gran % (Auto) 0.4 (0-5) % Neut % (Auto) 71.7 (50-80) % Lymph % (Auto) 18.8 (10-50) % [place] % (Auto) 7.6 (5-15) % Eos % (Auto) 0.6 (0-8) % Baso % (Auto) 0.9 (0-1) % Immature Gran # (Auto) 0.03 10*3/UL Neut # (Auto) 6.11 10*3/UL Lymph # (Auto) 1.60 10*3/uL [place] # (Auto) 0.65 (0.3-0.8) 10*3/UL Eos # (Auto) 0.05 10*3/UL Baso # (Auto) 0.08 10*3/UL WBC Morphology Comment Normal morphology (NORM) Plt Morphology Comment Normal morphology (NORM) RBC Morph Comment Normal morphology (NORM) Sodium 137 (135-145) meq/L Potassium 3.1 L (3.8-5.2) meq/L Chloride 97 L (98-112) meq/L Carbon Dioxide 17 L (23-33) meq/L Anion Gap 23 H (5-20) BUN 15 (7-22) mg/dL Creatinine 0.9 (0.50-1.20) mg/dL Estimated GFR > 60 (>60 ml/min/1.73m(2)) BUN/Creatinine Ratio 16.66 (6-20) Glucose 160 H (78-110) mg/dL Calculated Osmolality 287.0 (267-292) mOsm/kg Calcium 12.6 H (8.7-10.7) mg/dL Magnesium 1.1 L (1.6-2.4) mg/dL Total Bilirubin 1.5 H (0.3-1.2) mg/dL AST 83 H (8-39) IU/L ALT 66 H (9-52) IU/L Alkaline Phosphatase 100 (38-126) IU/L C-Reactive Protein 0.8 (0.0-0.9) mg/dL Total Protein 8.6 H (6.1-8.0) g/dL Albumin 5.2 H (3.5-4.8) g/dL Globulin 3.4 (2.50-4.10) g/dL Albumin/Globulin Ratio 1.50 (1.3-2.0) mg/g Amylase 216 H (30-110) U/L Lipase 1803 H* (23-300) IU/L Ur Collection Type Clean catch urine Urine Color Yellow Urine Clarity Clear (CLEAR) Urine pH 6.5 (5.0-8.5) Ur Specific Blue 1.015 (1.005-1.030) Urine Protein Trace (NEG) mg/dl Urine Glucose (UA) Negative (NEG) mg/dL Urine Ketones Trace (NEG) Urine Occult Blood Negative (NEG) Urine Nitrate Negative (NEG) Urine Bilirubin Negative (NEG) Urine Urobilinogen 0.2 (0.2) EU/dL Ur Leukocyte Esterase Negative (NEG) Ur Culture Indicated? Culture not set Serum Alcohol < 10 (0-10) mg/dL Assessment and Plan - Patient Problems (1) Alcohol withdrawal Current Visit: Yes Status: Acute Priority: High Qualifiers: Complication of substance-induced condition: uncomplicated Qualified Description: Alcohol withdrawal syndrome, uncomplicated (2) Alcoholic pancreatitis Current Visit: Yes Status: Acute Qualifiers: Qualified Description: Alcohol-induced acute pancreatitis without infection or necrosis Qualifier Code(s): (K85.20) Alcohol induced acute pancreatitis without necrosis or infection (3) Hypokalemia Current Visit: Yes Status: Acute (4) Hypomagnesemia Current Visit: Yes Status: Acute (5) Hypertension Current Visit: Yes Status: Acute Qualifiers: Hypertension type: essential hypertension Qualified Description: Essential hypertension Qualifier Code(s): (I10) Essential (primary) hypertension (6) Metabolic acidosis, normal anion gap (NAG) Current Visit: Yes Status: Acute (7) Tobacco abuse Current Visit: Yes Status: Chronic - Assessment / Plan Additional Assessment/Plan Details: Admit the patient. Pain control/clear liquid diet although nothing by mouth postmidnight for renal ultrasound/antiemetics/IV pain medications. [facility] protocol for alcohol withdrawal Naloxone therapy should really be considered in this patient. This been shown to help reduce the amount of heavy drinking and help patient's quit alcoholism so I think on an outpatient basis it should be prescribed. Again, prior CT scan shows some renal lesions that appears hypodensities on CT scan and an ultrasound was recommended for follow-up. We will go ahead and order that for tomorrow. We discussed smoking cessation, overall I think the patient should go to use cigarettes or nicotine replacement products. She is not a good candidate for Chantix given her history. Photo / Body Diagrams - Uploaded Photos Uploaded Photos:
[2017-03-09] MEDS: Metoprolol TARTRATE Tab 25 MG TAB PO SCH (21:53)
[2017-03-09] MEDS: MAGNESIUM OXIDE 400 MG TABLET PO SCH (21:53)
[2017-03-09] MEDS: QUEtiapine Tab 25 MG TAB PO SCH (21:53)
[2017-03-09] MEDS: ChlordiazePOXIDE 25mg Cap (ETOH withdrawal) PO SCH (21:54)
[2017-03-09] MEDS: ACETAMINOPHEN 500 MG TABLET PO PRN (22:59)
[2017-03-10] MEDS: HYDROmorphone 2 MG/1 ML IVP PRN ×8 (00:27→21:50)
[2017-03-10 07:21] LABS: BASOPHILS # (AUTO) 0.06 10*3/UL; EOSINOPHILS # (AUTO) 0.15 10*3/UL; EOSINOPHILS % (AUTO) 2.6 % (0-8); HEMATOCRIT 36.3 % (37.0-47.0); HEMOGLOBIN 12.7 g/dL (12.0-16.0); LYMPHOCYTES # (AUTO) 1.34 10*3/uL; MEAN CORPUSCULAR HEMOGLOBIN 34.1 PG (27-31); MEAN CORPUSCULAR VOLUME 97.6 FL (81-99); MEAN PLATELET VOLUME 9.2 FL (7.4-12.2); MONOCYTES # (AUTO) 0.46 10*3/UL (0.3-0.8); MONOCYTES % (AUTO) 7.9 % (5-15); NEUTROPHILS % (AUTO) 65.3 % (50-80); RED BLOOD COUNT 3.72 10^6/uL (4.20-5.40)
[2017-03-10] MEDS: OMEPRAZOLE 20 MG CAPSULE PO SCH (07:22)
[2017-03-10 07:27] LABS: PLATELET MORPHOLOGY COMMENT NORMAL MORPHOLOGY (NORM); RBC MORPHOLOGY COMMENT NORMAL MORPHOLOGY (NORM); WBC MORPHOLOGY COMMENT NORMAL MORPHOLOGY (NORM)
[2017-03-10 07:37] LABS: BLOOD UREA NITROGEN 13 mg/dL (7-22); BUN/CREATININE RATIO 16.25 (6-20); CALCIUM 9.8 mg/dL (8.7-10.7); EST GLOMERULAR FILTRATION > 60 (>60 ml/min/1.73m(2)); MAGNESIUM 2.5 mg/dL (1.6-2.4); PHOSPHORUS 3.3 mg/dl (2.4-4.3); SERUM ALBUMIN 4.1 g/dL (3.5-4.8)
[2017-03-10 07:47] LABS: LIPASE 1906 IU/L (23-300)
[2017-03-10] MEDS: ONDANSETRON 4 MG/2 ML VIAL IV PRN ×3 (08:28→21:50)
[2017-03-10] MEDS ORDERED: FLUOXETINE HCL PO SCH (09:00)
[2017-03-10] MEDS: Diazepam Inj (ETOH withdrawal)10 MG/2 ML CARPUJECT IVP PRN ×3 (09:31→21:49)
[2017-03-10] MEDS: HYDROCHLOROTHIAZIDE 12.5 MG CAPSULE PO SCH (09:32)
[2017-03-10] MEDS: MAGNESIUM OXIDE 400 MG TABLET PO SCH ×2 (09:32→21:50)
[2017-03-10] MEDS: ChlordiazePOXIDE 25mg Cap (ETOH withdrawal) PO SCH ×3 (09:32→21:51)
[2017-03-10] MEDS: AmLODIPine Tab 5 MG TABLET PO SCH (09:32)
[2017-03-10] MEDS: FLUoxetine 20 MG CAPSULE PO SCH (09:32)
[2017-03-10] MEDS: Metoprolol TARTRATE Tab 25 MG TAB PO SCH ×2 (09:33→21:50)
[2017-03-10] MEDS: LOSARTAN 50 MG TABLET PO SCH (09:33)
[2017-03-10] MEDS ORDERED: Patch Removal PATCH TRANSDERM PRN (09:57)
[2017-03-10] MEDS ORDERED: Potassium Chloride 20 mEq 20 MEQ in Premix 1 BAG IV ONE (11:58)
--- NOTE | 2017-03-10 13:08 | DI ---
BILATERAL RENAL ULTRASOUND, 03/10/2017 7:00 AM: Clinical History: Recent abdominal CT scan revealed low-density lesions in both kidneys. Previous Exam: None at this facility. Comparison is made with an MRI scan of the abdomen from 02/01/20 Scans are performed through both kidneys in multiple projections. The right kidney measures 121 mm, a nd the left kidney measures 118 mm. There is lobulation of the left kidney. Multiple small cyst s are visualized in the kidneys and these are unchanged from the MRI scan of the abdomen from 02/01/20. No solid lesion is identified. The recent CT scan revealed nonobstructing calculi in the upper po le of the left kidney but these are not visualized by ultrasound. There is no hydronephrosis or hydro ureter. Perfusion to both kidneys is symmetric and normal. The bladder is normal. Bilateral ureteral jets are visualized. There is an estimated prevoid bladder volume of 335 mL. There is 10% post void r esidual volume. Readin. Normal bilateral renal ultrasound. Both kidneys have small cysts that account for the low-density lesion seen on the recent CT scan. 2. The bladder is normal and there is 10% post void residual volume.
--- NOTE | 2017-03-10 17:37 | PDOC(PROG) ---
Date and Time of Service: 03/10/2017, 1735 Interval History: Complains of worsened abdominal pain today, still has some symptoms of agitation and mild hand tremors. No nausea or vomiting. Tolerating clear liquids and still wants to eat. We discussed renal ultrasound which showed simple cysts. Objective : Data - Labs CBC and BMP: 03/10/17 06:47 03/10/17 06:47 Labs - Last 24 Hours: Laboratory Results 03/10/17 Range/Units 06:47 WBC 5.82 (4.8-10.8) 10^3/uL RBC 3.72 L (4.20-5.40) 10^6/uL Hgb 12.7 (12.0-16.0) g/dL Hct 36.3 L (37.0-47.0) % MCV 97.6 (81-99) FL MCH 34.1 H (27-31) PG MCHC 35.0 (33-37) g/dL RDW Std Deviation 52.2 H (39-50) fL RDW Coeff of Farzad 15.2 H (11.5-14.5) % Plt Count 382 H (140-350) 10*3/uL MPV 9.2 (7.4-12.2) FL Immature Gran % (Auto) 0.2 (0-5) % Neut % (Auto) 65.3 (50-80) % Lymph % (Auto) 23.0 (10-50) % [place] % (Auto) 7.9 (5-15) % Eos % (Auto) 2.6 (0-8) % Baso % (Auto) 1.0 (0-1) % Immature Gran # (Auto) 0.01 10*3/UL Neut # (Auto) 3.80 10*3/UL Lymph # (Auto) 1.34 10*3/uL [place] # (Auto) 0.46 (0.3-0.8) 10*3/UL Eos # (Auto) 0.15 10*3/UL Baso # (Auto) 0.06 10*3/UL WBC Morphology Comment Normal morphology (NORM) Plt Morphology Comment Normal morphology (NORM) RBC Morph Comment Normal morphology (NORM) Sodium 140 (135-145) meq/L Potassium 3.5 L (3.8-5.2) meq/L Chloride 105 (98-112) meq/L Carbon Dioxide 21 L (23-33) meq/L Anion Gap 14 (5-20) BUN 13 (7-22) mg/dL Creatinine 0.8 (0.50-1.20) mg/dL Estimated GFR > 60 (>60 ml/min/1.73m(2)) BUN/Creatinine Ratio 16.25 (6-20) Glucose 144 H (78-110) mg/dL Calculated Osmolality 292.0 (267-292) mOsm/kg Calcium 9.8 (8.7-10.7) mg/dL Phosphorus 3.3 (2.4-4.3) mg/dl Magnesium 2.5 H (1.6-2.4) mg/dL Total Bilirubin 1.3 H (0.3-1.2) mg/dL AST 44 H (8-39) IU/L ALT 50 (9-52) IU/L Alkaline Phosphatase 82 (38-126) IU/L Total Protein 6.8 (6.1-8.0) g/dL Albumin 4.1 (3.5-4.8) g/dL Globulin 2.7 (2.50-4.10) g/dL Albumin/Globulin Ratio 1.50 (1.3-2.0) mg/g Lipase 1906 H* (23-300) IU/L Objective : Exam - General General Appearance: No Acute Distress, Cooperative Additional General Exam Details: Vital Signs - Last Taken Temperature 97.6 F 03/10/17 16:55 Pulse Rate 76 03/10/17 16:55 Respiratory Rate 18 03/10/17 16:55 Blood Pressure 149/95 03/10/17 16:55 Pulse Ox 98 03/10/17 16:14 - Eye Eye Exam: No Scleral Icterus - Respiratory Respiratory Exam: Clear to Auscultation - Bilaterally, Breathing Non Labored - Cardiovascular Cardiovascular Exam: RRR, No Murmur, No Clicks, No Gallops, No Rubs, No JVD - GI/Abdominal GI/Abdominal Exam: Normal Bowel Sounds, Non Distended, Soft Additional GI/Abdominal Exam Details: Tender to palpation. - Extremities Extremities Exam: No Clubbing Present, No Edema Present, No Cyanosis Present - Neurological Neurological Exam: Alert, Oriented x 3, No Facial Droop, Speech Intact / Clear, Moves All Extremities Equally - Psychiatric Psychiatric Exam: Normal Affect, Normal Mood Assessment and Plan - Patient Problems (1) Alcohol withdrawal Current Visit: Yes Status: Acute Priority: High Qualifiers: Complication of substance-induced condition: uncomplicated Qualified Description: Alcohol withdrawal syndrome, uncomplicated Qualifier Code(s) : (F10.230) Alcohol dependence with withdrawal, uncomplicated (2) Alcoholic pancreatitis Current Visit: Yes Status: Acute Qualifiers: Qualified Description: Alcohol-induced acute pancreatitis without infection or necrosis Qualifier Code(s): (K85.20) Alcohol induced acute pancreatitis without necrosis or infection (3) Hypokalemia Current Visit: Yes Status: Acute (4) Hypomagnesemia Current Visit: Yes Status: Acute (5) Hypertension Current Visit: Yes Status: Acute Qualifiers: Hypertension type: essential hypertension Qualified Description: Essential hypertension Qualifier Code(s): (I10) Essential (primary) hypertension (6) Metabolic acidosis, normal anion gap (NAG) Current Visit: Yes Status: Resolved (7) Tobacco abuse Current Visit: Yes Status: Chronic - Assessment / Plan Additional Assessment/Plan Details: continue clear liquids, pain meds, CIWA protocol check labs tomorrow. Hopefully, lipase will be better naloxone therapy as outpatient and AA meetings. Photo / Body Diagrams - Uploaded Photos Uploaded Photos:
[2017-03-10] MEDS: QUEtiapine Tab 25 MG TAB PO SCH (21:50)
[2017-03-11] MEDS: HYDROmorphone 2 MG/1 ML IVP PRN ×4 (00:15→09:37)
[2017-03-11] MEDS: OMEPRAZOLE 20 MG CAPSULE PO SCH (07:43)
[2017-03-11] MEDS: MAGNESIUM OXIDE 400 MG TABLET PO SCH ×2 (09:36→21:50)
[2017-03-11] MEDS: AmLODIPine Tab 5 MG TABLET PO SCH (09:36)
[2017-03-11] MEDS ORDERED: CYANOCOBALAMIN 1000 MCG/1 ML VIAL IM ONE (09:36)
[2017-03-11] MEDS: Metoprolol TARTRATE Tab 25 MG TAB PO SCH ×2 (09:36→21:50)
[2017-03-11] MEDS: HYDROCHLOROTHIAZIDE 12.5 MG CAPSULE PO SCH (09:36)
[2017-03-11] MEDS: FLUoxetine 20 MG CAPSULE PO SCH (09:36)
[2017-03-11] MEDS: LOSARTAN 50 MG TABLET PO SCH (09:36)
[2017-03-11] MEDS: ChlordiazePOXIDE 25mg Cap (ETOH withdrawal) PO SCH ×3 (09:37→21:51)
[2017-03-11] MEDS: NICOTINE 21 MG /DAY PATCH TRANSDERM PRN (09:37)
[2017-03-11 10:02] LABS: BASOPHILS # (AUTO) 0.08 10*3/UL; BASOPHILS % (AUTO) 1.2 % (0-1); EOSINOPHILS # (AUTO) 0.19 10*3/UL; EOSINOPHILS % (AUTO) 2.8 % (0-8); HEMATOCRIT 34.9 % (37.0-47.0); HEMOGLOBIN 11.8 g/dL (12.0-16.0); LYMPHOCYTES # (AUTO) 2.05 10*3/uL; MEAN CORPUSCULAR HEMOGLOBIN 34.8 PG (27-31); MEAN CORPUSCULAR HGB CONC 33.8 g/dL (33-37); MEAN CORPUSCULAR VOLUME 102.9 FL (81-99); MEAN PLATELET VOLUME 8.7 FL (7.4-12.2); MONOCYTES # (AUTO) 0.34 10*3/UL (0.3-0.8); NEUTROPHILS # (AUTO) 4.14 10*3/UL; NEUTROPHILS % (AUTO) 60.6 % (50-80); RED BLOOD COUNT 3.39 10^6/uL (4.20-5.40)
[2017-03-11 10:06] LABS: PLATELET MORPHOLOGY COMMENT NORMAL MORPHOLOGY (NORM); RBC MORPHOLOGY COMMENT NORMAL MORPHOLOGY (NORM); WBC MORPHOLOGY COMMENT NORMAL MORPHOLOGY (NORM)
[2017-03-11 10:30] LABS: BLOOD UREA NITROGEN 11 mg/dL (7-22); BUN/CREATININE RATIO 15.71 (6-20); CALCIUM 8.1 mg/dL (8.7-10.7); EST GLOMERULAR FILTRATION > 60 (>60 ml/min/1.73m(2)); SERUM ALBUMIN 3.7 g/dL (3.5-4.8)
[2017-03-11 10:57] LABS: LIPASE 1338 IU/L (23-300)
[2017-03-11] MEDS: Diazepam Inj (ETOH withdrawal)10 MG/2 ML CARPUJECT IVP PRN ×2 (17:08→21:51)
--- NOTE | 2017-03-11 19:34 | PDOC(PROG) ---
Date and Time of Service: 03/11/2017, 1700 Interval History: No complaints of chest pain, shortness breath, nausea or vomiting. States abdominal pain is significantly better and would like to try regular diet. She states the pain medications are really causing her grogginess and giving her some difficulty breathing and she wants to stop them. She is anxious as she just learned that her best friend lost her to a suicide. Objective : Data - Labs CBC and BMP: 03/11/17 09:57 03/11/17 09:57 Labs - Last 24 Hours: Laboratory Results 03/10/17 03/11/17 Range/Units 06:47 09:57 WBC 6.82 (4.8-10.8) 10^3/uL RBC 3.39 L (4.20-5.40) 10^6/uL Hgb 11.8 L (12.0-16.0) g/dL Hct 34.9 L (37.0-47.0) % MCV 102.9 H (81-99) FL MCH 34.8 H (27-31) PG MCHC 33.8 (33-37) g/dL RDW Std Deviation 54.9 H (39-50) fL RDW Coeff of Farzad 15.0 H (11.5-14.5) % Plt Count 313 (140-350) 10*3/uL MPV 8.7 (7.4-12.2) FL Immature Gran % (Auto) 0.3 (0-5) % Neut % (Auto) 60.6 (50-80) % Lymph % (Auto) 30.1 (10-50) % [place] % (Auto) 5.0 (5-15) % Eos % (Auto) 2.8 (0-8) % Baso % (Auto) 1.2 H (0-1) % Immature Gran # (Auto) 0.02 10*3/UL Neut # (Auto) 4.14 10*3/UL Lymph # (Auto) 2.05 10*3/uL [place] # (Auto) 0.34 (0.3-0.8) 10*3/UL Eos # (Auto) 0.19 10*3/UL Baso # (Auto) 0.08 10*3/UL WBC Morphology Comment Normal morphology (NORM) Plt Morphology Comment Normal morphology (NORM) RBC Morph Comment Normal morphology (NORM) Sodium 141 (135-145) meq/L Potassium 4.4 (3.8-5.2) meq/L Chloride 110 (98-112) meq/L Carbon Dioxide 20 L (23-33) meq/L Anion Gap 11 (5-20) BUN 11 (7-22) mg/dL Creatinine 0.7 (0.50-1.20) mg/dL Estimated GFR > 60 (>60 ml/min/1.73m(2)) BUN/Creatinine Ratio 15.71 (6-20) Glucose 89 (78-110) mg/dL Calculated Osmolality 289.0 (267-292) mOsm/kg Calcium 8.1 L (8.7-10.7) mg/dL Total Bilirubin 1.1 (0.3-1.2) mg/dL AST 61 H (8-39) IU/L ALT 47 (9-52) IU/L Alkaline Phosphatase 69 (38-126) IU/L Total Protein 6.1 (6.1-8.0) g/dL Albumin 3.7 (3.5-4.8) g/dL Globulin 2.3 L (2.50-4.10) g/dL Albumin/Globulin Ratio 1.60 (1.3-2.0) mg/g Lipase 1338 H* (23-300) IU/L Vitamin B12 217 L (239-931) pg/mL Serum Folate 4.37 (2.76-20.0) NG/ML Objective : Exam - General General Appearance: No Acute Distress, Cooperative Additional General Exam Details: Vital Signs - Last Taken Temperature 97.9 F 03/11/17 17:10 Pulse Rate 91 03/11/17 17:10 Respiratory Rate 20 03/11/17 17:10 Blood Pressure 131/84 03/11/17 17:10 Pulse Ox 94 03/11/17 13:00 - Eye Eye Exam: No Scleral Icterus - Respiratory Respiratory Exam: Clear to Auscultation - Bilaterally, Breathing Non Labored - Cardiovascular Cardiovascular Exam: RRR, No Murmur, No Clicks, No Gallops, No Rubs, No JVD - GI/Abdominal GI/Abdominal Exam: Normal Bowel Sounds, Non Tender, Non Distended, Soft - Extremities Extremities Exam: No Clubbing Present, No Edema Present, No Cyanosis Present - Neurological Neurological Exam: Alert, Oriented x 3, No Facial Droop, Speech Intact / Clear, Moves All Extremities Equally - Psychiatric Psychiatric Exam: Anxious Assessment and Plan - Patient Problems (1) Alcoholic pancreatitis Current Visit: Yes Status: Acute Qualifiers: Qualified Description: Alcohol-induced acute pancreatitis without infection or necrosis Qualifier Code(s): (K85.20) Alcohol induced acute pancreatitis without necrosis or infection (2) Alcohol withdrawal Current Visit: Yes Status: Acute Priority: High Qualifiers: Complication of substance-induced condition: uncomplicated Qualified Description: Alcohol withdrawal syndrome, uncomplicated Qualifier Code(s) : (F10.230) Alcohol dependence with withdrawal, uncomplicated (3) Hypokalemia Current Visit: Yes Status: Acute (4) Hypomagnesemia Current Visit: Yes Status: Acute (5) Hypertension Current Visit: Yes Status: Acute Qualifiers: Hypertension type: essential hypertension Qualified Description: Essential hypertension Qualifier Code(s): (I10) Essential (primary) hypertension (6) Tobacco abuse Current Visit: Yes Status: Chronic - Assessment / Plan Additional Assessment/Plan Details: Overall, patient's better from her pancreatitis, but would like to advance regular diet and make sure she can tolerate that prior to discharge. The patient has definitely shown that she cannot quit alcohol without the support of alcoholics anonymous. She is willing to get a sponsor and we asked her to work on that prior to discharge. We may see if we can arrange the patient for checkups from the paramedics to see if she's gone through AA meetings. Check lipase tomorrow. Stop Dilaudid. Continue CIWA protocol. Discussed with patient and father in room and they agreed with plan. Photo / Body Diagrams - Uploaded Photos Uploaded Photos:
[2017-03-11] MEDS: QUEtiapine Tab 25 MG TAB PO SCH (21:50)
[2017-03-12] MEDS: ONDANSETRON 4 MG/2 ML VIAL IV PRN (02:41)
[2017-03-12] MEDS: Diazepam Inj (ETOH withdrawal)10 MG/2 ML CARPUJECT IVP PRN ×3 (02:42→07:58)
[2017-03-12] MEDS: ACETAMINOPHEN 500 MG TABLET PO PRN (04:44)
[2017-03-12] MEDS: OMEPRAZOLE 20 MG CAPSULE PO SCH (06:52)
[2017-03-12] MEDS: LOSARTAN 50 MG TABLET PO SCH (08:00)
[2017-03-12] MEDS: ChlordiazePOXIDE 25mg Cap (ETOH withdrawal) PO SCH (08:00)
[2017-03-12] MEDS: MAGNESIUM OXIDE 400 MG TABLET PO SCH (08:01)
[2017-03-12] MEDS: HYDROCHLOROTHIAZIDE 12.5 MG CAPSULE PO SCH (08:01)
[2017-03-12] MEDS: AmLODIPine Tab 5 MG TABLET PO SCH (08:01)
[2017-03-12] MEDS: Metoprolol TARTRATE Tab 25 MG TAB PO SCH (08:01)
[2017-03-12] MEDS: FLUoxetine 20 MG CAPSULE PO SCH (08:01)
[2017-03-12] MEDS ORDERED: Multivitamin Tab 1 TAB PO SCH (09:00)
[2017-03-12] MEDS ORDERED: HYDROcodone-APAP 5 MG -325 MG TABLET PO PRN ×2 (09:39→09:44)
[2017-03-12 12:26] VITALS: RESP 16; TEMP 97.2
--- NOTE | 2017-03-12 13:42 | DCSUMMARY ---
Hospitalization Summary Admit Date: 03/09/17 Discharge Date: 03/12/17 Primary Diagnosis:: alcoholic pancreatitis. Secondary Diagnosis:: Alcohol withdrawal in a patient with chronic alcoholism. Hospital Course: This is a 46-year-old female well known to the hospitalist service due to chronic alcoholism, and she presented with acute alcohol withdrawal, and pancreatitis with abdominal pain. She was admitted, pain control and fluids were administered, and her diet was advanced slowly. She did not feel very good on the Dilaudid at all in her chest for that to be stopped fairly soon. She was able to advance her diet and her lipase actually continued to fall. In terms of her alcohol withdrawal, that seemed to do okay. We were able to use the [facility] protocol to manage withdrawal and by the time of discharge her withdrawal is resolved. She wanted to go home. She is interested in continuing AA and actually picking a sponsor. She has noted herself that when she stops doing Alcoholics Anonymous, that she starts to drink much more profusely. Her dad agreed. Today, no completes of chest pain, shortness breath, nausea or vomiting. I will discharge patient home today, and in addition to pain medications for the next couple of days, we are going to try naltrexone therapy outside the hospital to hopefully have the patient avoid drinking. We'll start at 50 mA by mouth daily. Low-dose naltrexone therapy can be considered as well. However this is at least a starting point. Assessment and Plan: 1. As per discharge assessments noted 2. Disposition: Patient is discharged home. 3. Condition on discharge, stable and improved. 4. Diet: regular diet 5. Activities: resume normal activities, but stopped drinking and stop smoking 6. Follow-Up: 1. Follow-up with Dr. Mcallister in one week 2. 7. Medications at the Time of Discharge: Home Medications Medication Instructions Recorded Confirmed Type Fluoxetine HCl 1 cap PO DAILY #30 cap 11/19/16 03/09/17 Clinic Amlodipine Besylate 5 mg PO DAILY #30 tablet 11/29/16 03/09/17 Clinic Losartan/Hydrochlorothiazide 1 tab PO DAILY #30 tab 11/29/16 03/09/17 Clinic [Losartan-Hctz 100-12.5 mg Tab] Metoprolol Tartrate 25 mg PO BID #60 tab 11/29/16 03/09/17 Clinic Quetiapine Fumarate [Seroquel] 50 mg PO QHS #30 tab 03/01/17 03/09/17 Clinic Cyanocobalamin (Vitamin B-12) 1,000 mcg PO DAILY #90 tablet 03/12/17 Rx [Vitamin B-12] HYDROcodone/APAP 5/325 Tab [Schroeder 2 tab PO Q4H PRN #15 tab 03/12/17 Rx 5/325 Tab] Naltrexone HCl 50 mg PO DAILY #30 tablet 03/12/17 Rx 8. Time, care, counseling and coordination of care for this discharge is less than 30 minutes. Exam - Vitals Vital Signs: Vital Signs Temperature 97.2 F Temperature Source Temporal Artery Scan Pulse Rate [Apical] 84 Pulse Rate [Pulse Oximeter 80 Right] Pulse Rate 82 Respiratory Rate 16 Blood Pressure [Right Arm] 153/95 Blood Pressure 154/86 Pulse Ox 90 Oxygen Flow Rate 2 Oxygen Delivery Method Room Air Height 5 ft 3 in Weight 131 lb 11.2 oz - General General Appearance: POSITIVE: No Acute Distress, Cooperative - Eye Eye Exam: POSITIVE: No Scleral Icterus - Respiratory Respiratory Exam: POSITIVE: Clear to Auscultation - Bilaterally, Breathing Non Labored - Cardiovascular Cardiovascular Exam: POSITIVE: RRR, No Murmur, No Clicks, No Gallops, No Rubs, No JVD - GI/Abdominal GI/Abdominal Exam: POSITIVE: Normal Bowel Sounds, Non Tender, Non Distended, Soft - Extremities Extremities Exam: POSITIVE: No Clubbing Present, No Edema Present, No Cyanosis Present - Neurological Neurological Exam: POSITIVE: Alert, Oriented x 3, No Facial Droop, Speech Intact / Clear, Moves All Extremities Equally - Psychiatric Psychiatric Exam: POSITIVE: Normal Affect, Normal Mood (Significantly less anxious today. No tremors.) Data Perinent Studies: Laboratory Results 03/09/17 03/09/17 03/10/17 Range/Units 17:30 18:25 06:47 WBC 8.52 5.82 (4.8-10.8) 10^3/uL RBC 4.23 3.72 L (4.20-5.40) 10^6/uL Hgb 14.5 12.7 (12.0-16.0) g/dL Hct 39.9 36.3 L (37.0-47.0) % MCV 94.3 97.6 (81-99) FL MCH 34.3 H 34.1 H (27-31) PG MCHC 36.3 35.0 (33-37) g/dL RDW Std Deviation 50.3 H 52.2 H (39-50) fL RDW Coeff of Farzad 15.1 H 15.2 H (11.5-14.5) % Plt Count 472 H 382 H (140-350) 10*3/uL MPV 9.0 9.2 (7.4-12.2) FL Immature Gran % (Auto) 0.4 0.2 (0-5) % Neut % (Auto) 71.7 65.3 (50-80) % Lymph % (Auto) 18.8 23.0 (10-50) % Carroll % (Auto) 7.6 7.9 (5-15) % Eos % (Auto) 0.6 2.6 (0-8) % Baso % (Auto) 0.9 1.0 (0-1) % Immature Gran # (Auto) 0.03 0.01 10*3/UL Neut # (Auto) 6.11 3.80 10*3/UL Lymph # (Auto) 1.60 1.34 10*3/uL Carroll # (Auto) 0.65 0.46 (0.3-0.8) 10*3/UL Eos # (Auto) 0.05 0.15 10*3/UL Baso # (Auto) 0.08 0.06 10*3/UL WBC Morphology Comment Normal morphology Normal morphology (NORM) Plt Morphology Comment Normal morphology Normal morphology (NORM) RBC Morph Comment Normal morphology Normal morphology (NORM) Sodium 137 140 (135-145) meq/L Potassium 3.1 L 3.5 L (3.8-5.2) meq/L Chloride 97 L 105 (98-112) meq/L Carbon Dioxide 17 L 21 L (23-33) meq/L Anion Gap 23 H 14 (5-20) BUN 15 13 (7-22) mg/dL Creatinine 0.9 0.8 (0.50-1.20) mg/dL Estimated GFR > 60 > 60 (>60 ml/min/1.73m(2)) BUN/Creatinine Ratio 16.66 16.25 (6-20) Glucose 160 H 144 H (78-110) mg/dL Calculated Osmolality 287.0 292.0 (267-292) mOsm/kg Calcium 12.6 H 9.8 (8.7-10.7) mg/dL Phosphorus 3.3 (2.4-4.3) mg/dl Magnesium 1.1 L 2.5 H (1.6-2.4) mg/dL Total Bilirubin 1.5 H 1.3 H (0.3-1.2) mg/dL AST 83 H 44 H (8-39) IU/L ALT 66 H 50 (9-52) IU/L Alkaline Phosphatase 100 82 (38-126) IU/L C-Reactive Protein 0.8 (0.0-0.9) mg/dL Total Protein 8.6 H 6.8 (6.1-8.0) g/dL Albumin 5.2 H 4.1 (3.5-4.8) g/dL Globulin 3.4 2.7 (2.50-4.10) g/dL Albumin/Globulin Ratio 1.50 1.50 (1.3-2.0) mg/g Amylase 216 H (30-110) U/L Lipase 1803 H* 1906 H* (23-300) IU/L Vitamin B12 217 L (239-931) pg/mL Serum Folate 4.37 (2.76-20.0) NG/ML Ur Collection Type Clean catch urine Urine Color Yellow Urine Clarity Clear (CLEAR) Urine pH 6.5 (5.0-8.5) Ur Specific Shubert 1.015 (1.005-1.030) Urine Protein Trace (NEG) mg/dl Urine Glucose (UA) Negative (NEG) mg/dL Urine Ketones Trace (NEG) Urine Occult Blood Negative (NEG) Urine Nitrate Negative (NEG) Urine Bilirubin Negative (NEG) Urine Urobilinogen 0.2 (0.2) EU/dL Ur Leukocyte Esterase Negative (NEG) Ur Culture Indicated? Culture not set Serum Alcohol < 10 (0-10) mg/dL 03/11/17 03/12/17 Range/Units 09:57 04:50 WBC 6.82 (4.8-10.8) 10^3/uL RBC 3.39 L (4.20-5.40) 10^6/uL Hgb 11.8 L (12.0-16.0) g/dL Hct 34.9 L (37.0-47.0) % MCV 102.9 H (81-99) FL MCH 34.8 H (27-31) PG MCHC 33.8 (33-37) g/dL RDW Std Deviation 54.9 H (39-50) fL RDW Coeff of Farzad 15.0 H (11.5-14.5) % Plt Count 313 (140-350) 10*3/uL MPV 8.7 (7.4-12.2) FL Immature Gran % (Auto) 0.3 (0-5) % Neut % (Auto) 60.6 (50-80) % Lymph % (Auto) 30.1 (10-50) % Carroll % (Auto) 5.0 (5-15) % Eos % (Auto) 2.8 (0-8) % Baso % (Auto) 1.2 H (0-1) % Immature Gran # (Auto) 0.02 10*3/UL Neut # (Auto) 4.14 10*3/UL Lymph # (Auto) 2.05 10*3/uL Carroll # (Auto) 0.34 (0.3-0.8) 10*3/UL Eos # (Auto) 0.19 10*3/UL Baso # (Auto) 0.08 10*3/UL WBC Morphology Comment Normal morphology (NORM) Plt Morphology Comment Normal morphology (NORM) RBC Morph Comment Normal morphology (NORM) Sodium 141 (135-145) meq/L Potassium 4.4 (3.8-5.2) meq/L Chloride 110 (98-112) meq/L Carbon Dioxide 20 L (23-33) meq/L Anion Gap 11 (5-20) BUN 11 (7-22) mg/dL Creatinine 0.7 (0.50-1.20) mg/dL Estimated GFR > 60 (>60 ml/min/1.73m(2)) BUN/Creatinine Ratio 15.71 (6-20) Glucose 89 (78-110) mg/dL Calculated Osmolality 289.0 (267-292) mOsm/kg Calcium 8.1 L (8.7-10.7) mg/dL Phosphorus (2.4-4.3) mg/dl Magnesium (1.6-2.4) mg/dL Total Bilirubin 1.1 (0.3-1.2) mg/dL AST 61 H (8-39) IU/L ALT 47 (9-52) IU/L Alkaline Phosphatase 69 (38-126) IU/L C-Reactive Protein (0.0-0.9) mg/dL Total Protein 6.1 (6.1-8.0) g/dL Albumin 3.7 (3.5-4.8) g/dL Globulin 2.3 L (2.50-4.10) g/dL Albumin/Globulin Ratio 1.60 (1.3-2.0) mg/g Amylase (30-110) U/L Lipase 1338 H* 517 H (23-300) IU/L Vitamin B12 (239-931) pg/mL Serum Folate (2.76-20.0) NG/ML Ur Collection Type Urine Color Urine Clarity (CLEAR) Urine pH (5.0-8.5) Ur Specific Shubert (1.005-1.030) Urine Protein (NEG) mg/dl Urine Glucose (UA) (NEG) mg/dL Urine Ketones (NEG) Urine Occult Blood (NEG) Urine Nitrate (NEG) Urine Bilirubin (NEG) Urine Urobilinogen (0.2) EU/dL Ur Leukocyte Esterase (NEG) Ur Culture Indicated? Serum Alcohol (0-10) mg/dL Patient Problems - Patient Problem List (1) Alcoholic pancreatitis Current Visit: Yes Status: Resolved Qualifiers: Chronicity: acute Acute pancreatitis complication: no infection or necrosis Qualified Description: Alcohol-induced acute pancreatitis without infection or necrosis Qualifier Code(s): (K85.20) Alcohol induced acute pancreatitis without necrosis or infection (2) Alcohol withdrawal Current Visit: Yes Status: Acute Priority: High Qualifiers: Complication of substance-induced condition: uncomplicated Qualified Description: Alcohol withdrawal syndrome, uncomplicated Qualifier Code(s) : (F10.230) Alcohol dependence with withdrawal, uncomplicated (3) Hypokalemia Current Visit: Yes Status: Acute (4) Hypomagnesemia Current Visit: Yes Status: Acute (5) Hypertension Current Visit: Yes Status: Acute Qualifiers: Hypertension type: essential hypertension Qualified Description: Essential hypertension Qualifier Code(s): (I10) Essential (primary) hypertension (6) Tobacco abuse Current Visit: Yes Status: Chronic
[2017-03-14] MEDS ORDERED: Thiamine Tab 100 MG TAB PO SCH (18:32)
== END 2017-03-12 14:14 | disposition home or self-care (01) | DRG 439 ==
LOC: ER 16:25 → MED/SURG 18:30
PROVIDERS: ADMIT Family Medicine; ATTEND Family Medicine
DX: K85.20 Alcohol induced acute pancreatitis without necrosis or infection (principal); F10.239 Alcohol dependence with withdrawal, unspecified; E87.2 Acidosis; E87.6 Hypokalemia; E83.42 Hypomagnesemia; I10 Essential (primary) hypertension; Z72.0 Tobacco use
CPT/HCPCS: 36415; 76770; 80053; 80320; 81003; 82150; 82607; 82746; 83690; 83735; 84100; 85025; 86140; 94761; 96361; 96374; 96375; 99284; J1170; J2060; J2270; J2405; J3360; J3420; J3475; J3480; J3490; J7030

== ENCOUNTER 2017-03-30 12:57 | Emergency (ER) | payer SELFPAY ==
[2017-03-30 13:21] VITALS: RESP 14; TEMP 97.1
[2017-03-30] MEDS ORDERED: Pantoprazole Inj 40 MG in Normal Saline Flush 10 ML IVP ONE (13:21)
[2017-03-30] MEDS ORDERED: NORMAL SALINE 10 ML SYRINGE FLUSH IVP PRN (13:21)
[2017-03-30] MEDS ORDERED: HYDROmorphone 2 MG/1 ML IVP ONE (13:24)
[2017-03-30 14:59] LABS: BASOPHILS # (AUTO) 0.07 10*3/UL; BASOPHILS % (AUTO) 0.9 % (0-1); EOSINOPHILS # (AUTO) 0.09 10*3/UL; EOSINOPHILS % (AUTO) 1.1 % (0-8); HEMATOCRIT 48.2 % (37.0-47.0); HEMOGLOBIN 17.1 g/dL (12.0-16.0); LYMPHOCYTES # (AUTO) 2.18 10*3/uL; MEAN CORPUSCULAR HEMOGLOBIN 33.6 PG (27-31); MEAN CORPUSCULAR HGB CONC 35.5 g/dL (33-37); MEAN CORPUSCULAR VOLUME 94.7 FL (81-99); MEAN PLATELET VOLUME 10.7 FL (7.4-12.2); MONOCYTES # (AUTO) 0.44 10*3/UL (0.3-0.8); MONOCYTES % (AUTO) 5.4 % (5-15); NEUTROPHILS % (AUTO) 65.2 % (50-80); RED BLOOD COUNT 5.09 10^6/uL (4.20-5.40)
[2017-03-30 15:00] LABS: PLATELET MORPHOLOGY COMMENT NORMAL MORPHOLOGY (NORM); RBC MORPHOLOGY COMMENT NORMAL MORPHOLOGY (NORM); WBC MORPHOLOGY COMMENT NORMAL MORPHOLOGY (NORM)
[2017-03-30] MEDS: Sodium Chloride 0.9% 1,000 ML PRIMARY IV ONE ×3 (15:11→17:53)
[2017-03-30 15:12] LABS: BUN/CREATININE RATIO 21.81 (6-20); CALCIUM 11.7 mg/dL (8.7-10.7); SERUM ALBUMIN 5.4 g/dL (3.5-4.8)
[2017-03-30] MEDS: ONDANSETRON 4 MG/2 ML VIAL IVP ONE ×2 (15:12→16:55)
--- NOTE | 2017-03-30 16:43 | DI ---
US ABDOMEN COMPLETE,03/30/2017 3:37 PM: Clinical History: Abdominal pain, nausea and vomiting. Previous Exam: None at this facility. Findings: Multiple transabdominal grayscale and color Doppler sonographic images are obtained through the abdom en demonstrating diffuse fatty infiltration of the liver. Patient is status post cholecystectomy. The pancreas is grossly normal but not well evaluated on this exam. The right kidney is normal measuring 11.6 in meters in length. There is no free fluid. The left kidney is also normal measuring 11 cm in length. Common bile duct measures 6 mm. The spleen is within normal limits. Impression: Diffuse fatty infiltration of the liver otherwise unremarkable.
--- NOTE | 2017-03-30 19:23 | DI ---
US PELVIC COMPLETE (NON OB),03/30/2017 4:35 PM: Clinical History: Pelvic pain and low hCG. Previous Exam: None at this facility. Findings: Multiple grayscale and color Doppler sonographic images are obtained transabdominally, and demonstrat e a normal-appearing uterus measuring 6.7 x 2.5 x 4.1 cm. There is no evidence of intrauterine pregna ncy. The ovaries are grossly normal bilaterally. The right ovary measuring 3.3 x 2.0 x 2.3 cm. The left ov leonie measures 3.2 x 1.5 x 2.2 cm. There is normal Doppler flow. There is no free fluid. Impression: Normal pelvic ultrasound.
[2017-03-30 19:48] LABS: URINE SAMPLE TYPE CLEAN CATCH URINE
[2017-03-30 19:48] LABS: BACTERIA,URINE RARE; BILIRUBIN,URINE NEGATIVE (NEG); CLARITY,URINE CLEAR (CLEAR); COLOR,URINE YELLOW; GLUCOSE, URINE (UA) NEGATIVE (NEG); NITRATE,URINE NEGATIVE (NEG); OCCULT BLOOD,URINE NEGATIVE (NEG); PH,URINE 7.5 (5.0-8.5); PROTEIN,URINE NEGATIVE (NEG); SQUAMOUS EPITHELIAL CELL,UR RARE; URINE SAMPLE TYPE CLEAN CATCH URINE; UROBILINOGEN,URINE 0.2 EU/dL (0.2)
[2017-03-30 19:49] LABS: AMPHETAMINE SCREEN NEGATIVE (NEG); CANNABINOID SCREEN,URINE NEGATIVE (NEG); COCAINE SCREEN NEGATIVE (NEG); METHADONE URINE SCREEN NEGATIVE (NEG); METHAMPHETAMINES SCREEN,URINE NEGATIVE (NEG); OPIATE SCREEN,URINE POSITIVE (NEG); URINE SPECIFIC GRAVITY - MAN 1.015
[2017-03-30] MEDS ORDERED: Ondansetron ODT Tab 4 MG TAB PO SCH (20:15)
--- NOTE | 2017-03-30 23:06 | PDOC ---
Abdomen/Flank HPI - General Chief Complaint: Abdomen Pain Stated Complaint: ABD PAIN Date Seen by Provider: 03/30/17 Time Seen by Provider: 13:20 Source: POSITIVE: Patient, Old records Exam Limitations: POSITIVE: No limitations Nurse's Notes Reviewed & Considered: Yes - History of Present Illness Initial Comments: The patient is a 46-year-old female. She presents to the emergency room with a reported 4 day history of abdominal discomfort and vomiting. Her discomfort is mostly in the upper abdomen. Patient has a long-standing history of alcohol abuse and she has in the past been treated for alcoholic pancreatitis and alcoholic gastritis. She has a long-standing history of recurring nausea, vomiting and abdominal pain. She states she's not had any alcohol for 23 days and is presently enrolled in [facility]. She's had a cholecystectomy and an appendectomy. She's also had an abdominoplasty. She has not had a hysterectomy or tubal ligation. She denies any fevers or chills. No hematemesis, diarrhea, melena, hematochezia, dysuria or hematuria. Patient states that she has not had any sexual contact for 5 years. She smokes about a pack of cigarettes per day, but states she cuts her smoking back when she is having nausea and vomiting. Body Location Affected: REPORTS: Abdomen Timing: REPORTS: Constant Duration: >24 hours (4 days) Severity: Moderate Quality: REPORTS: "Pain" Abdominal Pain Onset Location: REPORTS: RUQ, LUQ, Periumbilical Abdominal Pain Radiation: REPORTS: No radiation Context: REPORTS: None Modifying Factors: improves with: Vomiting Associated Symptoms: REPORTS: Nausea, Vomiting. DENIES: Denies symptoms, Back pain, Bloody Emesis, Chest pain, Coffee Grounds Emesis, Chills, Diaphoresis, Fever, Fatigue, Headache, Heartburn, Loss of Appetite, Rash, Shortness of breath , Swelling/mass in abdomen, Syncope, Testicular Pain, Weakness, Grossly Bloody Diarrhea, Constipation, Diarrhea, Dysuria, Incontinent Stool, Incontinent Urine , Mucous Diarrhea, Difficulty Walking, Dizziness, Light Headedness, Numbness, Other Similar Symptoms Previously: Yes (history of similar recurring symptoms) Recent Care Received: REPORTS: Denies Any Prior Injuries Related to Current Complaint?: No - Patient Home Medications Home Medications: Home Medications Amlodipine Besylate 5 mg PO DAILY #30 tablet 11/29/16 Losartan/Hydrochlorothiazide [Losartan-Hctz 100-12.5 mg Tab] 1 tab PO DAILY #30 tab 11/29/16 Metoprolol Tartrate 25 mg PO BID #60 tab 11/29/16 Cyanocobalamin (Vitamin B-12) [Vitamin B-12] 1,000 mcg PO DAILY #90 tablet 03/12 Naltrexone HCl 50 mg PO DAILY #30 tablet 03/12/17 Escitalopram Oxalate [Lexapro] 1 tab PO DAILY #30 tab 03/21/17 Trazodone HCl 1 tab PO QHS #30 tab 03/21/17 Ondansetron Odt [Zofran ODT] 4 mg PO Q6H PRN #12 tab.rapdis 03/30/17 - Patient Allergies Allergies/Adverse Reactions: Allergies Allergy/AdvReac Type Severity Reaction Status Date / Time codeine AdvReac HALLUCINATI Verified 03/30/17 13:12 ONS levofloxacin [From Levaquin] AdvReac HALLUCINATI Verified 03/30/17 13:12 ONS oxycodone AdvReac HALLUCINATI Verified 03/30/17 13:12 ONS Past Medical History - heen HEENT History: Other (please comment) Additional HEENT History: WEARS GLASSES. "BULL'S EYE VISION" Cardiovascular History: Hypertension, Other (please comment) Additional Cardiovasular History: PALPITATIONS Respiratory History: Pneumonia, Snoring, Other (please comment) Additional Respiratory History: chronic tobacco use Gastrointestinal History: GERD, Gallbladder Disease, Pancreatitis, Other ( please comment) Additional Gastrointestinal History: Chronic alcoholism. elevated liver enzymes Genitourinary History: Denies History Endocrine History: Denies History Musculoskeletal History: Joint Pain, Other (please comment) Prosthesis or Implant: Yes (BREAST AUGMENTATION) Additional Musculoskeletal History: Pt fell down several stairs and fractured right shoulder. Pt had surgery on shoulder to repair fracture. X2 Neurological History: Seizures, Other (please comment) Additional Neurological History: SEIZURE WITH DETOX Blood Disorders: Denies History Psychiatric History: Depression, Anxiety Disorders, Substance Abuse Additional Psychiatric History: ALCOHOLISM: CHRONIC AND RECURRENT. PANIC DISORDER. PATIENT RECENTLY ATTEMPTED REHAB History of Sexually Transmitted Diseases: No Female Reproductive History: Denies History Obstetrical History: Denies History Cancer History: Denies History In Past Year Been Physically Harmed or Verbally Threatened: No History of MDRO: Yes Other Type of MDRO: TESTED POSITIVE 2014 FOLLOWED BY 2 NEG SWABS History of Other Communicable Diseases: Yes (MONO, VARICELLA) Tobacco Use: Current Every Day Smoker Alcohol Use: Sober Substance Use Type: None Previous Surgical History: Yes Type / Date of Surgery: APPENDECTOMY, CHOLECYSTECTOMY, ABDOMINOPLASTY, BREAST AUGMENTATION, Right shoulder surgeryX2 Anesthesia Reactions: No Malignant Hyperthermia: No Significant Family History: Asthma, Heart disease, Cancer, Diabetes, Hypertension Additional Family History: EARLY MENOPAUSE - MOTHER Past Medical History Reviewed: Reviewed - No Changes ROS - Limitations ROS Limitations: No Limitations Constitution: REPORTS: Denies Symptoms Cardiovascular: REPORTS: Denies Cardiac Symptoms Respiratory: REPORTS: Denies Resp Symptoms Neurological: REPORTS: Denies Neuro Symptoms Gastrointestinal: REPORTS: Abdominal Pain, Nausea, Vomitting Endocrine: REPORTS: Denies Symptoms Musculoskeletal: REPORTS: Denies MS Symptoms Genitourinary: REPORTS: Denies Symptoms Eyes: REPORTS: Denies Symptoms ENT: REPORTS: Denies Symptoms Skin: REPORTS: Denies Skin Symptoms Lympathic: REPORTS: Denies Lympathic Symptoms Immunologic: POSITIVE: Denies Symptoms Psychiatric: POSITIVE: Denies Psych Symptoms Abdominal/Flank Pain PE - General Appearance General Appearance: POSITIVE: Alert, Cooperative, No Evidence of Trauma, Moderate Distress - HEENT HEENT: POSITIVE: Head Inspection Nml, Eyes Inspection Nml, Ears Inspection Nml, Nose Inspection Nml, Oral/Dental Inspect. Nml, Pharynx Inspect. Nml, PERRL, EOMI - Neck Neck: POSITIVE: Normal Inspection, No Apparent Injury - Respiratory Respiratory: POSITIVE: No Respiratory Distress, Breath Sounds Normal, Chest Non- Tender - Cardiovascular Cardiovascular: POSITIVE: Regular Rate and Rhythm, Heart Sounds Normal, Equal Pulses, Strong Pulses Peripheral Pulses: Radial (R): 2+, Radial (L): 2+ - Chest Chest: POSITIVE: Non Tender - Abdomen Abdomen: Soft: (All Quadrants), Normal Bowel Sounds: (All Quadrants), Denies Tenderness: (LLQ), (RLQ), No Splenomegaly: (All Quadrants), No Hepatomegaly: ( All Quadrants), No Guarding: (All Quadrants), No Rebound: (All Quadrants), No Palpable Pulse: (All Quadrants), No Palpabale Mass: (All Quadrants), No Distention: (All Quadrants), No Rigidity: (All Quadrants), Tenderness Noted: ( RUQ), (LUQ) Additional Abdominal Details: Abdominal examination shows bowel sounds to be present. He does express some discomfort on direct palpation over the upper abdomen. No masses, organomegaly or rebound. Patient denies any vaginal bleeding. - Back Back: POSITIVE: Normal Inspection. 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 Pelvic ultrasound read as normal by radiologist. Lab Results Reviewed: Yes (qualitative hCG positive; quantitative hCG 7.2) Lab Results:: Laboratory Results 03/30/17 03/30/17 03/30/17 Range/Units 13:21 13:55 14:34 WBC (4.8-10.8) 10^3/uL RBC (4.20-5.40) 10^6/uL Hgb (12.0-16.0) g/dL Hct (37.0-47.0) % MCV (81-99) FL MCH (27-31) PG MCHC (33-37) g/dL RDW Std Deviation (39-50) fL RDW Coeff of Farzad (11.5-14.5) % Plt Count (140-350) 10*3/uL MPV (7.4-12.2) FL Immature Gran % (Auto) (0-5) % Neut % (Auto) (50-80) % Lymph % (Auto) (10-50) % [place] % (Auto) (5-15) % Eos % (Auto) (0-8) % Baso % (Auto) (0-1) % Immature Gran # (Auto) 10*3/UL Neut # (Auto) 10*3/UL Lymph # (Auto) 10*3/uL [place] # (Auto) (0.3-0.8) 10*3/UL Eos # (Auto) 10*3/UL Baso # (Auto) 10*3/UL WBC Morphology Comment (NORM) Plt Morphology Comment (NORM) RBC Morph Comment (NORM) Sodium (135-145) meq/L Potassium (3.8-5.2) meq/L Chloride (98-112) meq/L Carbon Dioxide (23-33) meq/L Anion Gap (5-20) BUN (7-22) mg/dL Creatinine (0.50-1.20) mg/dL Estimated GFR (>60 ml/min/1.73m(2)) BUN/Creatinine Ratio (6-20) Glucose (78-110) mg/dL Calculated Osmolality (267-292) mOsm/kg Calcium (8.7-10.7) mg/dL Total Bilirubin (0.3-1.2) mg/dL AST (8-39) IU/L ALT (9-52) IU/L Alkaline Phosphatase (38-126) IU/L Total Protein (6.1-8.0) g/dL Albumin (3.5-4.8) g/dL Globulin (2.50-4.10) g/dL Albumin/Globulin Ratio (1.3-2.0) mg/g Amylase (30-110) U/L Lipase (23-300) IU/L Serum HCG, Qual HCG, Quant 7.20 mIU/ML Ur Collection Type Clean catch urine Clean catch urine Urine Color Yellow Urine Clarity Clear (CLEAR) Urine pH 7.5 (5.0-8.5) Ur Specific [place] 1.015 (1.005-1.030) U Specif Grav (Refrac) 1.015 Urine Protein Negative (NEG) mg/dl Urine Glucose (UA) Negative (NEG) mg/dL Urine Ketones Negative (NEG) Urine Occult Blood Negative (NEG) Urine Nitrate Negative (NEG) Urine Bilirubin Negative (NEG) Urine Urobilinogen 0.2 (0.2) EU/dL Ur Leukocyte Esterase Trace (NEG) Urine RBC 1-3 (NONE) /hpf Urine WBC 2-4 (NONE) Ur Squamous Epith Cells Rare (NONE) Ur Renal Epithelial Cell None (NONE) Urine Crystals None Urine Bacteria Rare (NONE) Urine Casts None (NONE) Urine Mucus None (NONE) Urine Trichomonas None (NONE) Urine Yeast None (NONE) Ur Culture Indicated? Culture not set Urine Opiates Screen Positive H (NEG) Ur Buprenorphine Negative (NEG) Ur Oxycodone Screen Negative (NEG) Urine Methadone Screen Negative (NEG) Ur Propoxyphene Screen Negative (NEG) Barbiturate Screen Negative (NEG) U Tricyclic Antidepress Negative (NEG) Phencyclidine Screen Negative (NEG) Amphetamines Screen Negative (NEG) U Methamphetamines Scrn Negative (NEG) Benzodiazepines Screen Positive H (NEG) Cocaine Screen Negative (NEG) U Marijuana (THC) Screen Negative (NEG) Serum Alcohol (0-10) mg/dL 03/30/17 Range/Units 14:54 WBC 8.13 (4.8-10.8) 10^3/uL RBC 5.09 (4.20-5.40) 10^6/uL Hgb 17.1 H (12.0-16.0) g/dL Hct 48.2 H (37.0-47.0) % MCV 94.7 (81-99) FL MCH 33.6 H (27-31) PG MCHC 35.5 (33-37) g/dL RDW Std Deviation 46.5 (39-50) fL RDW Coeff of Farzad 13.6 (11.5-14.5) % Plt Count 365 H (140-350) 10*3/uL MPV 10.7 (7.4-12.2) FL Immature Gran % (Auto) 0.6 (0-5) % Neut % (Auto) 65.2 (50-80) % Lymph % (Auto) 26.8 (10-50) % [place] % (Auto) 5.4 (5-15) % Eos % (Auto) 1.1 (0-8) % Baso % (Auto) 0.9 (0-1) % Immature Gran # (Auto) 0.05 10*3/UL Neut # (Auto) 5.30 10*3/UL Lymph # (Auto) 2.18 10*3/uL [place] # (Auto) 0.44 (0.3-0.8) 10*3/UL Eos # (Auto) 0.09 10*3/UL Baso # (Auto) 0.07 10*3/UL WBC Morphology Comment Normal morphology (NORM) Plt Morphology Comment Normal morphology (NORM) RBC Morph Comment Normal morphology (NORM) Sodium 136 (135-145) meq/L Potassium 4.0 (3.8-5.2) meq/L Chloride 88 L (98-112) meq/L Carbon Dioxide 24 (23-33) meq/L Anion Gap 24 H (5-20) BUN 24 H (7-22) mg/dL Creatinine 1.1 (0.50-1.20) mg/dL Estimated GFR 54 (>60 ml/min/1.73m(2)) BUN/Creatinine Ratio 21.81 H (6-20) Glucose 170 H (78-110) mg/dL Calculated Osmolality 289.0 (267-292) mOsm/kg Calcium 11.7 H (8.7-10.7) mg/dL Total Bilirubin 1.6 H (0.3-1.2) mg/dL AST 78 H (8-39) IU/L ALT 43 (9-52) IU/L Alkaline Phosphatase 119 (38-126) IU/L Total Protein 10.2 H (6.1-8.0) g/dL Albumin 5.4 H (3.5-4.8) g/dL Globulin 4.8 H (2.50-4.10) g/dL Albumin/Globulin Ratio 1.10 L (1.3-2.0) mg/g Amylase 109 (30-110) U/L Lipase 94 (23-300) IU/L Serum HCG, Qual Positive HCG, Quant mIU/ML Ur Collection Type Urine Color Urine Clarity (CLEAR) Urine pH (5.0-8.5) Ur Specific [place] (1.005-1.030) U Specif Grav (Refrac) Urine Protein (NEG) mg/dl Urine Glucose (UA) (NEG) mg/dL Urine Ketones (NEG) Urine Occult Blood (NEG) Urine Nitrate (NEG) Urine Bilirubin (NEG) Urine Urobilinogen (0.2) EU/dL Ur Leukocyte Esterase (NEG) Urine RBC (NONE) /hpf Urine WBC (NONE) Ur Squamous Epith Cells (NONE) Ur Renal Epithelial Cell (NONE) Urine Crystals Urine Bacteria (NONE) Urine Casts (NONE) Urine Mucus (NONE) Urine Trichomonas (NONE) Urine Yeast (NONE) Ur Culture Indicated? Urine Opiates Screen (NEG) Ur Buprenorphine (NEG) Ur Oxycodone Screen (NEG) Urine Methadone Screen (NEG) Ur Propoxyphene Screen (NEG) Barbiturate Screen (NEG) U Tricyclic Antidepress (NEG) Phencyclidine Screen (NEG) Amphetamines Screen (NEG) U Methamphetamines Scrn (NEG) Benzodiazepines Screen (NEG) Cocaine Screen (NEG) U Marijuana (THC) Screen (NEG) Serum Alcohol < 10 (0-10) mg/dL - Patient's Progress Pain Medication Addressed: POSITIVE: Yes (Recommended Tylenol) School/Work Release Addressed: POSITIVE: Not Applicable Re-examine Time: 18:00 Re-Examine Comment: Patient hydrated with approximately 3 L of normal saline and was given a total of 8 mg IV of Zofran. Patient feeling much better and is resting comfortably Re-Examine Time: 20:00 Re-Examine Comment: Disposition discussed with patient. Patient was advised that her qualitative test was normal, and her quantitative test was slightly elevated. Patient adamantly denies any intercourse in the past 5 years. Patient advised that this laboratory finding is likely a lab error. Patient to return to the emergency room in 48 hours for repeat test. Return sooner anytime if condition worsens in any way whatsoever. Status: POSITIVE: Improved, Re-Examined - Consult Counseled: POSITIVE: Patient, RE: Lab Results, RE: Radiology Results, RE: DX, RE : Need for F/U Patient Care Time - Estimated PCT Patient Care Time (In Minutes): 65 Vital Signs - Recent Vital Signs Vital Signs: Vital Signs (Last 8 hours) Pulse Resp BP Pulse Ox 03/30/17 16:30 77 14 153/89 99 03/30/17 15:30 74 14 149/74 99 - VS Reviewed Vital Signs Reviewed: Yes Discharge Clinical Impression: Nausea and vomiting, Abdominal pain, recurrent Discharge Disposition: Discharged to Home Condition: Stable Prescriptions / Orders: Ondansetron Odt [Zofran ODT] 4 mg PO Q6H PRN #12 tab.rapdis PRN Reason: Nausea Patient Instructions Given at Discharge: Acute Nausea and Vomiting (ED), Abdominal Pain (ED) Additional Instructions: Your blood tests are all normal, except her test is mildly elevated. Since you state you have not had any intercourse in 5 years, this is probably a laboratory error, but we need to confirm this. Please return to the emergency room this coming Tuesday, April 01, anytime after 9 AM, and we will repeat this study. All your laboratory studies were normal and the ultrasound of your pelvis and abdomen were likewise normal. There is no signs of recurring pancreatitis. Congratulations on not having any alcohol for 23 days, please keep up the good work and abstain from alcohol. Zofran, one every 6 hours as necessary for nausea. Increase fluids. Follow-up with your primary care provider. Return here as above, or as necessary. Follow Up With: KITTY LAGUNA [Primary Care Provider] - (Instructions as above.)
== END 2017-03-30 20:25 | disposition home or self-care (01) ==
LOC: ER 12:57
DX: R10.84 Generalized abdominal pain (principal); R11.2 Nausea with vomiting, unspecified
CPT/HCPCS: 76700; 76856; 80053; 80305; 80320; 81001; 81003; 82150; 83690; 84702; 84703; 85025; 96361; 96374; 96375; 99283; J1170; J2405; J3490; J7030

== ENCOUNTER → 2017-04-01 | Outpatient (CLI) | payer SELFPAY | LOC: LAB 11:57 | PROVIDERS: ATTEND Emergency Medicine | DX: R79.89 Other specified abnormal findings of blood chemistry (principal) | CPT/HCPCS: 36415; 84702 ==

== ENCOUNTER → 2017-04-13 | Outpatient (CLI) | payer SELFPAY ==
--- NOTE | 2017-04-13 13:16 | DI ---
HISTORY: Abdominal pain, nausea. FINDINGS: Supine and upright view examination reveals the bowel gas pattern to be unremarkable with no definite evidence of bowel obstruction and no free air in the peritoneal cavity. Post surgical met allic clips are noted in the right upper abdomen. No abnormal calcifications are noted. IMPRESSION: 1. No acute bowel obstruction identified. Clinical correlation is requested.
[2017-04-13 13:30] LABS: BASOPHILS # (AUTO) 0.09 10*3/UL; EOSINOPHILS # (AUTO) 0.27 10*3/UL; EOSINOPHILS % (AUTO) 3.1 % (0-8); HEMOGLOBIN 13.3 g/dL (12.0-16.0); LYMPHOCYTES # (AUTO) 2.06 10*3/uL; MEAN CORPUSCULAR HEMOGLOBIN 33.8 PG (27-31); MEAN CORPUSCULAR VOLUME 96.7 FL (81-99); MEAN PLATELET VOLUME 9.9 FL (7.4-12.2); MONOCYTES # (AUTO) 0.28 10*3/UL (0.3-0.8); MONOCYTES % (AUTO) 3.2 % (5-15); NEUTROPHILS # (AUTO) 5.87 10*3/UL; NEUTROPHILS % (AUTO) 68.1 % (50-80); RED BLOOD COUNT 3.93 10^6/uL (4.20-5.40)
[2017-04-13 13:36] LABS: PLATELET MORPHOLOGY COMMENT NORMAL MORPHOLOGY (NORM); RBC MORPHOLOGY COMMENT NORMAL MORPHOLOGY (NORM); WBC MORPHOLOGY COMMENT NORMAL MORPHOLOGY (NORM)
[2017-04-13 13:45] LABS: BLOOD UREA NITROGEN 11 mg/dL (7-22); BUN/CREATININE RATIO 18.33 (6-20); EST GLOMERULAR FILTRATION > 60 (>60 ml/min/1.73m(2)); LIPASE 62 IU/L (23-300); SERUM ALBUMIN 4.6 g/dL (3.5-4.8)
== END ==
LOC: MOB LAB 12:19
PROVIDERS: ATTEND Physician Assistant
DX: R10.84 Generalized abdominal pain (principal); R11.10 Vomiting, unspecified; I10 Essential (primary) hypertension; F17.200 Nicotine dependence, unspecified, uncomplicated; Z87.19 Personal history of other diseases of the digestive system
CPT/HCPCS: 36415; 74020; 80053; 82150; 83690; 84702; 85025; 87088

== ENCOUNTER 2017-04-24 14:31 | Inpatient (IN) | payer SELFPAY ==
[2017-04-24] MEDS ORDERED: NORMAL SALINE 10 ML SYRINGE FLUSH IVP PRN (14:38)
[2017-04-24] MEDS ORDERED: Prochlorperazine Edisylate Inj 10mg/2ml vial IVP ONE (14:38)
[2017-04-24] MEDS ORDERED: Pantoprazole Inj 40 MG in Normal Saline Flush 10 ML IVP ONE (14:38)
[2017-04-24] MEDS ORDERED: LORazepam 2 MG/1 ML VIAL IVP ONE (14:40)
[2017-04-24] MEDS: Sodium Chloride 0.9% 1,000 ML PRIMARY IV ONE ×2 (14:40→15:51)
[2017-04-24 14:55] LABS: BASOPHILS # (AUTO) 0.09 10*3/UL; EOSINOPHILS # (AUTO) 0.01 10*3/UL; EOSINOPHILS % (AUTO) 0.1 % (0-8); HEMATOCRIT 43.6 % (37.0-47.0); HEMOGLOBIN 15.5 g/dL (12.0-16.0); LYMPHOCYTES # (AUTO) 1.99 10*3/uL; MEAN CORPUSCULAR HEMOGLOBIN 33.8 PG (27-31); MEAN CORPUSCULAR HGB CONC 35.6 g/dL (33-37); MEAN CORPUSCULAR VOLUME 95.2 FL (81-99); MEAN PLATELET VOLUME 9.6 FL (7.4-12.2); MONOCYTES # (AUTO) 0.29 10*3/UL (0.3-0.8); MONOCYTES % (AUTO) 3.1 % (5-15); NEUTROPHILS # (AUTO) 6.87 10*3/UL; RED BLOOD COUNT 4.58 10^6/uL (4.20-5.40)
[2017-04-24 14:57] LABS: PLATELET MORPHOLOGY COMMENT NORMAL MORPHOLOGY (NORM); RBC MORPHOLOGY COMMENT NORMAL MORPHOLOGY (NORM); WBC MORPHOLOGY COMMENT NORMAL MORPHOLOGY (NORM)
[2017-04-24 15:11] LABS: BLOOD UREA NITROGEN 29 mg/dL (7-22); BUN/CREATININE RATIO 20.71 (6-20); C-REACTIVE PROTEIN < 0.5 mg/dL (0.0-0.9); CALCIUM 11.3 mg/dL (8.7-10.7); EST GLOMERULAR FILTRATION 41 (>60 ml/min/1.73m(2)); LIPASE 44 IU/L (23-300); MAGNESIUM 1.2 mg/dL (1.6-2.4); SERUM ALBUMIN 5.3 g/dL (3.5-4.8)
[2017-04-24] MEDS ORDERED: Magnesium Sulfate 2gm (Premix) 2 GM in Premix 1 BAG IV ONE ×2 (15:23→16:05)
[2017-04-24] MEDS ORDERED: LIDOCAINE W/ SODIUM BICARB 0.5 ML SYR SUBD PRN (16:05)
[2017-04-24] MEDS ORDERED: ONDANSETRON 4 MG/2 ML VIAL IVP PRN (16:05)
[2017-04-24] MEDS ORDERED: Potassium Chloride 20 mEq 20 MEQ in Premix 1 BAG IV ONE (16:05)
[2017-04-24] MEDS ORDERED: ACETAMINOPHEN 325 MG TABLET PO PRN (16:05)
--- NOTE | 2017-04-24 16:40 | PDOC ---
Abdomen/Flank HPI - General Chief Complaint: Abdomen Pain Stated Complaint: Nausea/Vomiting/ Abd Pain around Umbilicus Date Seen by Provider: 04/24/17 Time Seen by Provider: 14:40 Source: POSITIVE: Patient Exam Limitations: POSITIVE: No limitations Nurse's Notes Reviewed & Considered: Yes - History of Present Illness Initial Comments: The patient is a 46-year-old female who presents to the emergency department with complaints of epigastric abdominal pain and nausea and vomiting. She has a history of alcohol abuse and recurrent pancreatitis however has not had any alcohol consumption since a hospitalization at the end of February this year. She has however continued to have some intermittent epigastric abdominal pain associated with nausea and vomiting. She states that for the past 4 days she has had increased pain and has been unable to really keep anything down even despite taking Zofran and Phenergan. The pain she is experiencing does radiate through to her back and feels similar to pain she has had with her pancreatitis in the past. She denies any hematemesis or blood in her stool. She has not had any associated diarrhea. If anything she has been somewhat constipated. She denies fever. She has been having increased muscle cramps especially in her feet. She is not currently taking any form of an acid medicine. She has been taking some increased amounts of ibuprofen for shoulder pain recently. In addition she does drink a fair amount of green tea. - Patient Home Medications Home Medications: Home Medications Amlodipine Besylate 5 mg PO DAILY #30 tablet 11/29/16 Metoprolol Tartrate 25 mg PO BID #60 tab 11/29/16 Cyanocobalamin (Vitamin B-12) [Vitamin B-12] 1,000 mcg PO DAILY #90 tablet 03/12 Naltrexone HCl 50 mg PO DAILY #30 tablet 03/12/17 Escitalopram Oxalate [Lexapro] 1 tab PO DAILY #30 tab 03/21/17 Trazodone HCl 1 tab PO QHS #30 tab 03/21/17 Ondansetron Odt [Zofran ODT] 4 mg PO Q6H PRN #12 tab.rapdis 03/30/17 Losartan/Hydrochlorothiazide [Losartan-Hctz 100-12.5 Mg Tab] 1 tab PO DAILY #30 tab 04/12/17 - Patient Allergies Allergies/Adverse Reactions: Allergies Allergy/AdvReac Type Severity Reaction Status Date / Time codeine AdvReac HALLUCINATI Verified 04/24/17 16:22 ONS levofloxacin [From Levaquin] AdvReac HALLUCINATI Verified 04/24/17 16:22 ONS oxycodone AdvReac HALLUCINATI Verified 04/24/17 16:22 ONS Past Medical History - heen HEENT History: Other (please comment) Additional HEENT History: WEARS GLASSES. "BULL'S EYE VISION" Cardiovascular History: Hypertension, Other (please comment) Additional Cardiovasular History: PALPITATIONS Respiratory History: Pneumonia, Snoring, Other (please comment) Additional Respiratory History: chronic tobacco use Gastrointestinal History: GERD, Gallbladder Disease, Pancreatitis, Other ( please comment) Additional Gastrointestinal History: Chronic alcoholism. elevated liver enzymes Genitourinary History: Denies History Endocrine History: Denies History Musculoskeletal History: Joint Pain, Other (please comment) Prosthesis or Implant: Yes (BREAST AUGMENTATION) Additional Musculoskeletal History: Pt fell down several stairs and fractured right shoulder. Pt had surgery on shoulder to repair fracture. X2 Neurological History: Seizures, Other (please comment) Additional Neurological History: SEIZURE WITH DETOX Blood Disorders: Denies History Psychiatric History: Depression, Anxiety Disorders, Substance Abuse Additional Psychiatric History: ALCOHOLISM: CHRONIC AND RECURRENT. PANIC DISORDER. PATIENT RECENTLY ATTEMPTED REHAB History of Sexually Transmitted Diseases: No Female Reproductive History: Denies History LMP: 2013 Obstetrical History: Denies History Cancer History: Denies History In Past Year Been Physically Harmed or Verbally Threatened: No History of MDRO: Yes Other Type of MDRO: TESTED POSITIVE 2014 FOLLOWED BY 2 NEG SWABS History of Other Communicable Diseases: Yes (MONO, VARICELLA) Tobacco Use: Current Every Day Smoker Alcohol Use: Sober Substance Use Type: None Previous Surgical History: Yes Type / Date of Surgery: APPENDECTOMY, CHOLECYSTECTOMY, ABDOMINOPLASTY, BREAST AUGMENTATION, Right shoulder surgeryX2 Anesthesia Reactions: No Malignant Hyperthermia: No Significant Family History: Asthma, Heart disease, Cancer, Diabetes, Hypertension Additional Family History: EARLY MENOPAUSE - MOTHER Past Medical History Reviewed: Reviewed - No Changes ROS - Limitations ROS Limitations: No Limitations Constitution: DENIES: Chills, Fever Cardiovascular: REPORTS: Denies Cardiac Symptoms Respiratory: REPORTS: Denies Resp Symptoms Neurological: REPORTS: Denies Neuro Symptoms Gastrointestinal: REPORTS: Abdominal Pain, Nausea, Vomitting. DENIES: Diarrhea , Black Stools, Bloody Stools Musculoskeletal: REPORTS: Other (Muscle cramps especially in her feet) Genitourinary: REPORTS: Dysuria. DENIES: Difficulty Urinating Eyes: REPORTS: Denies Symptoms ENT: REPORTS: Denies Symptoms Skin: DENIES: Rash Abdominal/Flank Pain PE - General Appearance General Appearance: POSITIVE: Alert, Cooperative, No Acute Distress, Anxious - HEENT HEENT: POSITIVE: Head Inspection Nml, Eyes Inspection Nml, Ears Inspection Nml, Dry Mucous Membranes - Neck Neck: POSITIVE: Normal Inspection. NEGATIVE: Lymphadenopathy - Respiratory Respiratory: POSITIVE: No Respiratory Distress, Breath Sounds Normal - Cardiovascular Cardiovascular: POSITIVE: Regular Rate and Rhythm, Heart Sounds Normal Peripheral Pulses: Dorsalis-pedis (R): 2+, Dorsalis-pedis (L): 2+ - Abdomen Abdomen: Soft: (All Quadrants), Normal Bowel Sounds: (All Quadrants), No Guarding: (All Quadrants), No Rebound: (All Quadrants) Additional Abdominal Details: Tenderness in the epigastric region without guarding or rebound tenderness. - Skin Skin: POSITIVE: Intact, No Rash - Extremities Extremity: Normal ROM: (All Extremities), Normal Inspection: (All Extremities) - Neurological Neurological: POSITIVE: Other (No focal neurologic deficits) Abdomen Progress - Results Reviewed by me Lab Results Reviewed: Yes Lab Results:: Laboratory Results 04/24/17 Range/Units 14:40 WBC 9.29 (4.8-10.8) 10^3/uL RBC 4.58 (4.20-5.40) 10^6/uL Hgb 15.5 (12.0-16.0) g/dL Hct 43.6 (37.0-47.0) % MCV 95.2 (81-99) FL MCH 33.8 H (27-31) PG MCHC 35.6 (33-37) g/dL RDW Std Deviation 47.2 (39-50) fL RDW Coeff of Farzad 14.0 (11.5-14.5) % Plt Count 416 H (140-350) 10*3/uL MPV 9.6 (7.4-12.2) FL Immature Gran % (Auto) 0.4 (0-5) % Neut % (Auto) 74.0 (50-80) % Lymph % (Auto) 21.4 (10-50) % [place] % (Auto) 3.1 L (5-15) % Eos % (Auto) 0.1 (0-8) % Baso % (Auto) 1.0 (0-1) % Immature Gran # (Auto) 0.04 10*3/UL Neut # (Auto) 6.87 10*3/UL Lymph # (Auto) 1.99 10*3/uL [place] # (Auto) 0.29 L (0.3-0.8) 10*3/UL Eos # (Auto) 0.01 10*3/UL Baso # (Auto) 0.09 10*3/UL WBC Morphology Comment Normal morphology (NORM) Plt Morphology Comment Normal morphology (NORM) RBC Morph Comment Normal morphology (NORM) Sodium 135 (135-145) meq/L Potassium 3.6 L (3.8-5.2) meq/L Chloride 92 L (98-112) meq/L Carbon Dioxide 18 L (23-33) meq/L Anion Gap 25 H (5-20) BUN 29 H (7-22) mg/dL Creatinine 1.4 H (0.50-1.20) mg/dL Estimated GFR 41 (>60 ml/min/1.73m(2)) BUN/Creatinine Ratio 20.71 H (6-20) Glucose 189 H (78-110) mg/dL Calculated Osmolality 290.0 (267-292) mOsm/kg Calcium 11.3 H (8.7-10.7) mg/dL Magnesium 1.2 L (1.6-2.4) mg/dL Total Bilirubin 1.2 (0.3-1.2) mg/dL AST 84 H (8-39) IU/L ALT 42 (9-52) IU/L Alkaline Phosphatase 86 (38-126) IU/L C-Reactive Protein < 0.5 (0.0-0.9) mg/dL Total Protein 8.8 H (6.1-8.0) g/dL Albumin 5.3 H (3.5-4.8) g/dL Globulin 3.5 (2.50-4.10) g/dL Albumin/Globulin Ratio 1.50 (1.3-2.0) mg/g Amylase 47 (30-110) U/L Lipase 44 (23-300) IU/L Serum HCG, Qual Positive HCG, Quant 4.39 mIU/ML Serum Alcohol < 10 (0-10) mg/dL - Patient's Progress MDM / ED Course: On arrival the patient was moaning and appeared to be quite uncomfortable and was having active dry heaves. An IV was established and she did receive 1 L bolus of normal saline as well as Ativan 1 mg IV and Compazine 5 mg IV after which she was feeling quite a bit better. Blood work revealed some electrolyte abnormalities with a low magnesium of 1.2. Her creatinine was also elevated at 1.4 with a normal baseline of 0.6-0.7. She was ordered 2 g of magnesium IV. Her liver enzymes revealed 1 transaminase that was mildly elevated and were otherwise normal and her pancreas enzymes are normal. Her white blood cell count is also normal. At this time her nausea and vomiting is likely secondary to gastritis. She did receive Protonix 40 mg IV. In addition she does have evidence of dehydration and electrolyte abnormalities. Findings were discussed with the patient and decision was made to admit for further hydration and electrolyte replacement. Dr. Espinal has agreed to admit the patient. - Consult Counseled: POSITIVE: Patient, RE: Lab Results, RE: DX Patient Care Time - Estimated PCT Patient Care Time (In Minutes): 30 Vital Signs - Recent Vital Signs Vital Signs: Vital Signs (Last 8 hours) Temp Pulse Resp BP Pulse Ox 04/24/17 14:35 98.7 F 75 28 H 139/98 100 - VS Reviewed Vital Signs Reviewed: Yes Discharge Clinical Impression: Nausea and vomiting, Gastritis, Acute renal failure, Hypomagnesemia Discharge Disposition: Admit to Inpatient Condition: Stable Date Decision to Admit to Inpatient: 04/24/17 Time Decision to Admit to Inpatient: 16:00
[2017-04-24] MEDS: NICOTINE 21 MG /DAY PATCH TRANSDERM SCH (17:32)
--- NOTE | 2017-04-24 17:34 | PDOC ---
History and Physical - History of Present Illness Date and Time of Service: 04/24/2017, 1730 Chief Complaint: Abdominal pain with nausea and vomiting History of Present Illness: The patient is 46-year-old female who presented with abdominal pain, mostly midepigastric, associated with nausea and vomiting, no fevers or chills, present for the last 4 days. She states that she's been home rolling in a ball trying to keep the pain and vomiting under control, but it has not worked very well. She came in for evaluation today, was found to have a normal lipase but her beta hCG is elevated. It is only minimally elevated and has been decreasing since it was first elevated in the middle of March. It is not clear that she was or ever , but no imaging has been done to this point that I'm aware of. She's not had that happen before. Her test that been negative and she denies having any sexual intercourse for the last 4- 5 years. She denies any diarrhea or constipation symptoms. Antiemetics did help the emergency room. Electrolytes were again abnormal, but she is not been drinking alcohol for upwards of the last 2 months. She is still working effectively with [employer] and does have a sponsor. I spoke with orthopedics regarding potential non-molar pregnancies or trophoblastic cancers, and they suggested that with a hCG below 5, that is typically considered a negative study and that it is unlikely that those are the case. Past Medical History Medical History: 1. Hypertension. 2. tobacco abuse. 3. Alcohol abuse, but has been remaining off of alcohol the past 8 weeks. 4. Recurrent pancreatitis. 5. Major depressive disorder versus bipolar disorder, one of the reasons patient states she drinks alcohol. 6. Medical noncompliance Surgical History: 1. History of cholecystectomy. 2. Appendectomy. 3. Breast augmentation and tummy tuck. 4. Shoulder surgery Family History: Reviewed an Not Pertinent Pertinent Family History: The patient is adopted but states her biologic mother had diabetes type II. The patient's mother when the patient was 4 years old. Her father is described as healthy. Past Social History: Smokes, drinks alcohol, lives in [place] with her father. Does not currently work. She states this is largely because of her shoulder. She does have a daughter who is about 20 years old. Tobacco Use: Current Every Day Smoker Do you dip or chew tobacco: No Substance Use Type: None Alcohol Use: Other (Has been sober for about 8 weeks.) Medication / Allergies Home Medications: Home Medications Medication Instructions Recorded Confirmed Type RX: Amlodipine Besylate 5 mg PO DAILY #30 tablet 11/29/16 04/24/17 Clinic RX: Metoprolol Tartrate 25 mg PO BID #60 tab 11/29/16 04/24/17 Clinic Cyanocobalamin (Vitamin B-12) 1,000 mcg PO DAILY #90 tablet 03/12/17 04/24/17 Rx [Vitamin B-12] RX: Naltrexone HCl 50 mg PO DAILY #30 tablet 03/12/17 04/24/17 Rx Escitalopram Oxalate [Lexapro] 1 tab PO DAILY #30 tab 03/21/17 04/24/17 Clinic RX: Trazodone HCl 1 tab PO QHS #30 tab 03/21/17 04/24/17 Clinic Ondansetron Odt [Zofran ODT] 4 mg PO Q6H PRN #12 tab.rapdis 03/30/17 04/24/17 Rx Losartan/Hydrochlorothiazide 1 tab PO DAILY #30 tab 04/12/17 04/24/17 Clinic [Losartan-Hctz 100-12.5 Mg Tab] Allergies/Adverse Reactions: Allergies Allergy/AdvReac Type Severity Reaction Status Date / Time codeine AdvReac HALLUCINATI Verified 04/24/17 16:22 ONS levofloxacin [From Levaquin] AdvReac HALLUCINATI Verified 04/24/17 16:22 ONS oxycodone AdvReac HALLUCINATI Verified 04/24/17 16:22 ONS Review of Systems - Review of Systems All Systems: Reviewed & No Additional Complaints Except as Stated (I did a 12 point review systems and it was negative other than that discussed in history present illness above.) Exam - Vitals Vital Signs: Vital Signs Temperature 98.3 F Temperature Source Oral Pulse Rate [Apical] 64 Pulse Rate [Pulse Oximeter 64 Bilateral] Respiratory Rate 16 Blood Pressure [Right Arm] 120/85 Pulse Ox 93 Oxygen Delivery Method Room Air Height 5 ft 3 in Weight 123 lb - General General Appearance: POSITIVE: No Acute Distress, Cooperative - Head Head Exam: POSITIVE: Normal Inspection, Normocephalic, Atraumatic - Eye Eye Exam: POSITIVE: No Scleral Icterus - ENT ENT Exam: POSITIVE: Mucous Membranes Dry - Neck Neck Exam: POSITIVE: Normal Inspection, No Thyromegaly - Respiratory Respiratory Exam: POSITIVE: Clear to Auscultation - Bilaterally, Breathing Non Labored, Normal to Percussion and Palpation - Cardiovascular Cardiovascular Exam: POSITIVE: RRR, No Murmur, No Clicks, No Gallops, No Rubs, No JVD - GI/Abdominal GI/Abdominal Exam: POSITIVE: Normal Bowel Sounds, Non Distended, Soft Additional GI/Abdominal Exam Details: The patient has tenderness to palpation in the epigastric area and upper quadrants of the abdomen. - Rectal Rectal Exam: POSITIVE: Deferred - External Exam: POSITIVE: Deferred Exam: POSITIVE: Deferred - Extremities Extremities Exam: POSITIVE: No Clubbing Present, No Edema Present, No Cyanosis Present - Back Back Exam: POSITIVE: Normal Inspection, No CVA Tenderness - Neurological Neurological Exam: POSITIVE: Alert, Oriented x 3, No Facial Droop, Speech Intact / Clear, Moves All Extremities Equally - Psychiatric Psychiatric Exam: POSITIVE: Normal Affect, Normal Mood - Integumentary Integumentary Exam: POSITIVE: Normal Color, Warm, Dry, Intact - Central Line Examination Central Line Present on Admission: No Results - Labs CBC and BMP: 04/24/17 14:40 04/24/17 14:40 Labs - Last 24 Hours: Laboratory Results 04/24/17 Range/Units 14:40 WBC 9.29 (4.8-10.8) 10^3/uL RBC 4.58 (4.20-5.40) 10^6/uL Hgb 15.5 (12.0-16.0) g/dL Hct 43.6 (37.0-47.0) % MCV 95.2 (81-99) FL MCH 33.8 H (27-31) PG MCHC 35.6 (33-37) g/dL RDW Std Deviation 47.2 (39-50) fL RDW Coeff of Farzad 14.0 (11.5-14.5) % Plt Count 416 H (140-350) 10*3/uL MPV 9.6 (7.4-12.2) FL Immature Gran % (Auto) 0.4 (0-5) % Neut % (Auto) 74.0 (50-80) % Lymph % (Auto) 21.4 (10-50) % [place] % (Auto) 3.1 L (5-15) % Eos % (Auto) 0.1 (0-8) % Baso % (Auto) 1.0 (0-1) % Immature Gran # (Auto) 0.04 10*3/UL Neut # (Auto) 6.87 10*3/UL Lymph # (Auto) 1.99 10*3/uL [place] # (Auto) 0.29 L (0.3-0.8) 10*3/UL Eos # (Auto) 0.01 10*3/UL Baso # (Auto) 0.09 10*3/UL WBC Morphology Comment Normal morphology (NORM) Plt Morphology Comment Normal morphology (NORM) RBC Morph Comment Normal morphology (NORM) Sodium 135 (135-145) meq/L Potassium 3.6 L (3.8-5.2) meq/L Chloride 92 L (98-112) meq/L Carbon Dioxide 18 L (23-33) meq/L Anion Gap 25 H (5-20) BUN 29 H (7-22) mg/dL Creatinine 1.4 H (0.50-1.20) mg/dL Estimated GFR 41 (>60 ml/min/1.73m(2)) BUN/Creatinine Ratio 20.71 H (6-20) Glucose 189 H (78-110) mg/dL Calculated Osmolality 290.0 (267-292) mOsm/kg Calcium 11.3 H (8.7-10.7) mg/dL Magnesium 1.2 L (1.6-2.4) mg/dL Total Bilirubin 1.2 (0.3-1.2) mg/dL AST 84 H (8-39) IU/L ALT 42 (9-52) IU/L Alkaline Phosphatase 86 (38-126) IU/L C-Reactive Protein < 0.5 (0.0-0.9) mg/dL Total Protein 8.8 H (6.1-8.0) g/dL Albumin 5.3 H (3.5-4.8) g/dL Globulin 3.5 (2.50-4.10) g/dL Albumin/Globulin Ratio 1.50 (1.3-2.0) mg/g Amylase 47 (30-110) U/L Lipase 44 (23-300) IU/L Serum HCG, Qual Positive HCG, Quant 4.39 mIU/ML Serum Alcohol < 10 (0-10) mg/dL Assessment and Plan - Patient Problems (1) Acute renal failure Current Visit: Yes Status: Acute Qualifiers: Acute renal failure type: unspecified Qualified Description: Acute renal failure, unspecified acute renal failure type Qualifier Code(s): ( N17.9) Acute kidney failure, unspecified (2) Elevated serum hCG in female, not Current Visit: Yes Status: Acute (3) Nausea and vomiting Current Visit: Yes Status: Acute (4) Abdominal pain, recurrent Current Visit: No Status: Acute (5) Hypertension Current Visit: No Status: Acute Qualifiers: Hypertension type: essential hypertension Qualified Description: Essential hypertension Qualifier Code(s): (I10) Essential (primary) hypertension (6) Hypokalemia Current Visit: No Status: Acute (7) Hypomagnesemia syndrome Current Visit: No Status: Acute (8) Depression with anxiety Current Visit: No Status: Acute - Assessment / Plan Additional Assessment/Plan Details: Admit the patient. I think the renal failure is probably prerenal, but will give normal saline and recheck creatinine tomorrow. The hCG being elevated is somewhat concerning in this patient. Could be related to some sort of underlying malignancy, so I'll start with a pelvic ultrasound, if that is negative then I'll do a CT scan of the abdomen and pelvis. It may be that the hCG is not high enough to reflect a gestational trophoblastic tumor. But again it could be elevated in the setting of pancreatic cancer so given this patient's history, it would be best to try to image his best as we can on these cancers that are not able to be screened for. Go ahead and allow a regular diet and try to control pain with antiemetics. We' ll write for some pain medications if necessary. Replace electrolytes. Plan above discussed with the patient and she agrees.
--- NOTE | 2017-04-24 18:09 | DI ---
CLINICAL HISTORY: Elevated HCG. Question . PREVIOUS EXAM: None available. FINDINGS/TECHNIQUE: Multiple transvaginal grayscale and color Doppler sonographic images are obtained through the pelvis, and demonstrate a normal-appearing uterus measuring 5.9 x 2.4 x 3.7 cm with an e ndometrial stripe measuring 2 mm. Right ovary measures 1.4 x 1.5 x 1.1 cm with normal Doppler flow. The left ovary measures 1.7 x 1.6 x 2.1 cm also with normal Doppler flow. There is no gestational sac identified. IMPRESSION: 1. No visible intrauterine gestation at this time. NOTE: The interpreting Radiologist was not present at the time of ultrasound interrogation.
[2017-04-24] MEDS: Metoprolol TARTRATE Tab 25 MG TAB PO SCH (22:04)
[2017-04-25] MEDS: Sodium Chloride 0.9% 1,000 ML PRIMARY IV SCH ×3 (01:10→19:51)
[2017-04-25] MEDS: MORPHINE SULFATE 4 MG/1 ML IVP PRN ×4 (01:20→23:34)
[2017-04-25 06:04] LABS: BASOPHILS # (AUTO) 0.07 10*3/UL; BASOPHILS % (AUTO) 0.9 % (0-1); EOSINOPHILS # (AUTO) 0.06 10*3/UL; EOSINOPHILS % (AUTO) 0.8 % (0-8); HEMATOCRIT 35.7 % (37.0-47.0); LYMPHOCYTES # (AUTO) 2.98 10*3/uL; MEAN CORPUSCULAR HEMOGLOBIN 33.5 PG (27-31); MEAN CORPUSCULAR HGB CONC 33.6 g/dL (33-37); MEAN CORPUSCULAR VOLUME 99.7 FL (81-99); MEAN PLATELET VOLUME 9.7 FL (7.4-12.2); MONOCYTES # (AUTO) 0.53 10*3/UL (0.3-0.8); NEUTROPHILS # (AUTO) 3.91 10*3/UL; NEUTROPHILS % (AUTO) 51.3 % (50-80); RED BLOOD COUNT 3.58 10^6/uL (4.20-5.40)
[2017-04-25 06:16] LABS: PLATELET MORPHOLOGY COMMENT NORMAL MORPHOLOGY (NORM); RBC MORPHOLOGY COMMENT NORMAL MORPHOLOGY (NORM); WBC MORPHOLOGY COMMENT NORMAL MORPHOLOGY (NORM)
[2017-04-25 06:22] LABS: BLOOD UREA NITROGEN 23 mg/dL (7-22); BUN/CREATININE RATIO 25.55 (6-20); CALCIUM 8.6 mg/dL (8.7-10.7); EST GLOMERULAR FILTRATION > 60 (>60 ml/min/1.73m(2)); MAGNESIUM 2.2 mg/dL (1.6-2.4)
[2017-04-25] MEDS: Prochlorperazine Edisylate Inj 10mg/2ml vial IVP PRN (07:04)
[2017-04-25] MEDS: ESCITALOPRAM 10 MG TABLET PO SCH (08:21)
[2017-04-25] MEDS: Metoprolol TARTRATE Tab 25 MG TAB PO SCH ×2 (08:21→22:03)
[2017-04-25] MEDS: NICOTINE 21 MG /DAY PATCH TRANSDERM SCH (08:21)
[2017-04-25] MEDS: AmLODIPine Tab 5 MG TABLET PO SCH (08:22)
[2017-04-25] MEDS ORDERED: NICOTINE 21 MG /DAY PATCH TRANSDERM SCH (09:00)
[2017-04-25] MEDS: POTASSIUM CHLORIDE 20 MEQ TAB PO SCH ×2 (09:27→22:03)
[2017-04-25] MEDS: CYANOCOBALAMIN 1000 MCG PO SCH (09:28)
[2017-04-25] MEDS: NORMAL SALINE 10 ML SYRINGE FLUSH IVP PRN (11:16)
--- NOTE | 2017-04-25 14:45 | PDOC(PROG) ---
Date and Time of Service: 04/25/2017, 1444 Interval History: Nausea and vomiting and abdominal pain have all improved. I think this patient is proving that she may have a possible underlying renal tubular acidosis or something that's causing potassium wasting and that may be causing the vomiting. We will stop hydrochlorothiazide and may even stop the losartan as well as her blood pressures remained stable with the being stopped at this time. Potassium should be supplemented indefinitely. Thus far no evidence for any hCG issues. Ultrasound is been negative and I spoke with cardiology and the CT scan does not see any pancreatic mass. An hCG level less than 5 is considered negative. No chest pain and no shortness breath. Objective : Data - Labs CBC and BMP: 04/25/17 05:57 04/25/17 05:57 Labs - Last 24 Hours: Laboratory Results 04/25/17 Range/Units 05:57 WBC 7.61 (4.8-10.8) 10^3/uL RBC 3.58 L (4.20-5.40) 10^6/uL Hgb 12.0 (12.0-16.0) g/dL Hct 35.7 L (37.0-47.0) % MCV 99.7 H (81-99) FL MCH 33.5 H (27-31) PG MCHC 33.6 (33-37) g/dL RDW Std Deviation 49.3 (39-50) fL RDW Coeff of Farzad 14.0 (11.5-14.5) % Plt Count 300 (140-350) 10*3/uL MPV 9.7 (7.4-12.2) FL Immature Gran % (Auto) 0.8 (0-5) % Neut % (Auto) 51.3 (50-80) % Lymph % (Auto) 39.2 (10-50) % [place] % (Auto) 7.0 (5-15) % Eos % (Auto) 0.8 (0-8) % Baso % (Auto) 0.9 (0-1) % Immature Gran # (Auto) 0.06 10*3/UL Neut # (Auto) 3.91 10*3/UL Lymph # (Auto) 2.98 10*3/uL [place] # (Auto) 0.53 (0.3-0.8) 10*3/UL Eos # (Auto) 0.06 10*3/UL Baso # (Auto) 0.07 10*3/UL WBC Morphology Comment Normal morphology (NORM) Plt Morphology Comment Normal morphology (NORM) RBC Morph Comment Normal morphology (NORM) Sodium 136 (135-145) meq/L Potassium 3.3 L (3.8-5.2) meq/L Chloride 103 (98-112) meq/L Carbon Dioxide 23 (23-33) meq/L Anion Gap 10 (5-20) BUN 23 H (7-22) mg/dL Creatinine 0.9 (0.50-1.20) mg/dL Estimated GFR > 60 (>60 ml/min/1.73m(2)) BUN/Creatinine Ratio 25.55 H (6-20) Glucose 100 (78-110) mg/dL Calculated Osmolality 285.0 (267-292) mOsm/kg Calcium 8.6 L (8.7-10.7) mg/dL Magnesium 2.2 (1.6-2.4) mg/dL Objective : Exam - General General Appearance: No Acute Distress, Cooperative Additional General Exam Details: Vital Signs - Last Taken Temperature 97.8 F 04/25/17 11:03 Pulse Rate 59 L 04/25/17 11:03 Respiratory Rate 17 04/25/17 11:03 Blood Pressure 116/81 04/25/17 11:03 Pulse Ox 96 04/25/17 11:03 - Eye Eye Exam: No Scleral Icterus - Respiratory Respiratory Exam: Clear to Auscultation - Bilaterally, Breathing Non Labored - Cardiovascular Cardiovascular Exam: RRR, No Murmur, No Clicks, No Gallops, No Rubs, No JVD - GI/Abdominal GI/Abdominal Exam: Normal Bowel Sounds, Non Tender, Non Distended, Soft - Extremities Extremities Exam: No Clubbing Present, No Edema Present, No Cyanosis Present - Neurological Neurological Exam: Alert, Oriented x 3, No Facial Droop, Speech Intact / Clear, Moves All Extremities Equally Assessment and Plan - Patient Problems (1) Abdominal pain, recurrent Current Visit: Yes Status: Acute (2) Acute renal failure Current Visit: Yes Status: Resolved Qualifiers: Acute renal failure type: unspecified Qualified Description: Acute renal failure, unspecified acute renal failure type Qualifier Code(s): ( N17.9) Acute kidney failure, unspecified (3) Elevated serum hCG in female, not Current Visit: Yes Status: Acute (4) Nausea and vomiting Current Visit: Yes Status: Acute (5) Hypertension Current Visit: No Status: Acute Qualifiers: Hypertension type: essential hypertension Qualified Description: Essential hypertension Qualifier Code(s): (I10) Essential (primary) hypertension (6) Hypokalemia Current Visit: Yes Status: Acute (7) Hypomagnesemia syndrome Current Visit: Yes Status: Acute (8) Depression with anxiety Current Visit: Yes Status: Chronic - Assessment / Plan Additional Assessment/Plan Details: Replace potassium. Continue on potassium supplements indefinitely. Stop losartan and hydrochlorothiazide. May start the losartan again but stay off of hydrochlorothiazide because of potassium wasting. I think it would benefit us to do a delayed gastric emptying study to make sure that there is no evidence of delayed gastric emptying causing nausea and vomiting. We will order that for tomorrow. If negative, home. Continue fluids.
--- NOTE | 2017-04-25 14:50 | DI ---
CT ABD W/CN AND PELVIS W/CN,04/25/2017 8:52 AM: Clinical History: Epigastric pain and elevated hCG. Worrisome for malignancy. Previous Exam: February 26, 2017 Findings: Multiple helically acquired CT images are obtained through the abdomen and pelvis following intraveno us administration of contrast. Lung bases are clear except for some mild subsegmental atelectasis. Patient is status post breast augmentation. There is mild stable diffuse fatty infiltration of the li ciro without evidence of mass. The spleen is unremarkable. The adrenals are also unremarkable. There is a stable renal parenchymal s tone noted within the superior pole of the left kidney as well as the interpolar region of the left k idney. There is moderate stool noted throughout the colon. The pancreas is normal without evidence of mass. The urinary bladder is unremarkable. The uterus and ovaries are not well evaluated on this exam. Ther e are no gross abnormalities however. Impression: 1. No evidence of neoplasia.
[2017-04-25 15:30] LABS: BILIRUBIN,URINE NEGATIVE (NEG); CLARITY,URINE CLEAR (CLEAR); COLOR,URINE YELLOW; GLUCOSE, URINE (UA) NEGATIVE (NEG); NITRATE,URINE NEGATIVE (NEG); OCCULT BLOOD,URINE NEGATIVE (NEG); PROTEIN,URINE NEGATIVE (NEG)
[2017-04-25 15:34] LABS: BACTERIA,URINE MANY; SQUAMOUS EPITHELIAL CELL,UR RARE; URINE SAMPLE TYPE VOIDED SPECIMEN; WBC,URINE 25-50
[2017-04-25 15:38] LABS: URINE SAMPLE TYPE VOIDED SPECIMEN
[2017-04-25 15:39] LABS: AMPHETAMINE SCREEN NEGATIVE (NEG); CANNABINOID SCREEN,URINE NEGATIVE (NEG); COCAINE SCREEN NEGATIVE (NEG); METHADONE URINE SCREEN NEGATIVE (NEG); METHAMPHETAMINES SCREEN,URINE NEGATIVE (NEG); OPIATE SCREEN,URINE POSITIVE (NEG)
[2017-04-26] MEDS: Sodium Chloride 0.9% 1,000 ML PRIMARY IV SCH (03:01)
[2017-04-26] MEDS: MORPHINE SULFATE 4 MG/1 ML IVP PRN ×2 (06:33→13:40)
[2017-04-26] MEDS: AmLODIPine Tab 5 MG TABLET PO SCH (10:54)
[2017-04-26] MEDS: Metoprolol TARTRATE Tab 25 MG TAB PO SCH (10:54)
[2017-04-26] MEDS: ESCITALOPRAM 10 MG TABLET PO SCH (10:54)
[2017-04-26] MEDS: POTASSIUM CHLORIDE 20 MEQ TAB PO SCH (10:54)
[2017-04-26] MEDS: NICOTINE 21 MG /DAY PATCH TRANSDERM SCH (10:54)
[2017-04-26] MEDS: NORMAL SALINE 10 ML SYRINGE FLUSH IVP PRN ×3 (10:55→13:41)
[2017-04-26] MEDS: CYANOCOBALAMIN 1000 MCG PO SCH (10:58)
[2017-04-26] MEDS ORDERED: CEPHALEXIN 500 MG CAPSULE PO ONE (11:18)
[2017-04-26] MEDS ORDERED: LOSARTAN 25 MG TABLET PO ONE (11:19)
[2017-04-26 11:30] VITALS: RESP 20; TEMP 98.3
[2017-04-26] MEDS: Prochlorperazine Edisylate Inj 10mg/2ml vial IVP PRN (13:05)
--- NOTE | 2017-04-26 14:06 | DI ---
KATIE GASTRIC EMPTYING STUDY,04/26/2017 7:00 AM: Clinical History: Nausea and vomiting. Previous Exam: None at this facility. Radiopharmaceutical: 1.20 mCi of technetium 99m sulfur colloid were administered orally in one cup of prepared oatmeal. Findings: Images are obtained of the stomach, and images obtained out to 90 minutes. The calculated T1/2 measur ed 68 minutes. There was 37% emptying at 60 minutes. This is partially due to a lag time of 27 minutes. Substracting the lag phase, the T1/2 measured 41 minutes. Impression: Normal gastric emptying study.
--- NOTE | 2017-04-26 14:48 | DCSUMMARY ---
Hospitalization Summary Admit Date: 04/24/17 Discharge Date: 04/26/17 Primary Diagnosis:: acute renal failure, resolved Secondary Diagnosis:: Urinary tract infection, present on admission, gram-negative rods and likely Escherichia coli. Hospital Course: This is a 46-year-old female who is admitted frequently in the setting of pancreatitis and alcohol abuse who actually was admitted this time with onset of nausea, vomiting, and epigastric abdominal pain. She's had have a urinary tract infection and she was treated with Keflex as this was a gram-negative alejandro urinary tract infection. We are still waiting for final ID but I suspected Escherichia coli. She'll finish 5 days of therapy for as it is on uncomplicated urinary tract infection. She also takes a lot of ibuprofen for shoulder and I encouraged her to follow-up for her shoulder for strengthening and conditioning exercises to strengthen her shoulder girdle and reduce her pain. Patient's nausea and vomiting significantly improved through the hospital stay with repletion of potassium and magnesium. I suspect that the patient also developed nausea and vomiting in the setting of hypokalemia. We will continually replace potassium and stop hydrochlorothiazide and replace that with just losartan for continued treatment of the blood pressure. I spoke with the patient's memory care provider, Dr. Mcallister, and we think it would be a good idea to do studies to look at the possibility of acute intermittent porphyria, and if symptoms studies off. They're pending and can be reviewed in the clinic. I encouraged the patient to continue with naltrexone therapy to help with alcohol abuse issues. Although she has sobriety, I like to see a continue as best as possible and I think naltrexone and will help her maintain this. Another thought that I have with this hypokalemia is this could be hyperaldosteronism. I'm actually going to have her hold off on her losartan for the next couple weeks, get a renal and an aldosterone level in the morning, and then resume blood pressure medications. If this comes back positive and is suggestive of hyperaldosteronism, then it could be that the patient actually needs to be placed on spironolactone for her hypertension. Today, no completes of chest pain, shortness breath, or vomiting. Assessment and Plan: 1. As per discharge assessments noted 2. Disposition: Patient is discharged home. 3. Condition on discharge, stable and improved. 4. Diet: regular diet 5. Activities: resume normal activities 6. Follow-Up: 1. Primary care provider 1-2 weeks. 2. 7. Medications at the Time of Discharge: Home Medications Medication Instructions Recorded Confirmed Type Amlodipine Besylate 5 mg PO DAILY #30 tablet 11/29/16 04/24/17 Clinic Metoprolol Tartrate 25 mg PO BID #60 tab 11/29/16 04/24/17 Clinic Cyanocobalamin (Vitamin B-12) 1,000 mcg PO DAILY #90 tablet 03/12/17 04/24/17 Rx [Vitamin B-12] Naltrexone HCl 50 mg PO DAILY #30 tablet 03/12/17 04/24/17 Rx Escitalopram Oxalate [Lexapro] 1 tab PO DAILY #30 tab 03/21/17 04/24/17 Clinic Cephalexin [Keflex] 500 mg PO BID #9 cap 04/26/17 Rx Losartan [Cozaar] 100 mg PO EVERY AM #30 tab 04/26/17 Rx Potassium Chloride [Klor-Con] 20 meq PO DAILY #30 tab 04/26/17 Rx 8. Time, care, counseling and coordination of care for this discharge is greater than 30 minutes. Exam - Vitals Vital Signs: Vital Signs Vital Signs - Last Taken Temperature 98.3 F 04/26/17 11:29 Pulse Rate 69 04/26/17 11:29 Respiratory Rate 20 04/26/17 11:29 Blood Pressure 171/104 04/26/17 11:29 Pulse Ox 95 04/26/17 11:29 - General General Appearance: POSITIVE: No Acute Distress, Cooperative - Head Head Exam: POSITIVE: Normal Inspection, Normocephalic, Atraumatic - Eye Eye Exam: POSITIVE: No Scleral Icterus - ENT ENT Exam: POSITIVE: Mucous Membranes Moist - Respiratory Respiratory Exam: POSITIVE: Clear to Auscultation - Bilaterally, Breathing Non Labored - Cardiovascular Cardiovascular Exam: POSITIVE: RRR, No Murmur, No Clicks, No Gallops, No Rubs, No JVD - GI/Abdominal GI/Abdominal Exam: POSITIVE: Normal Bowel Sounds, Non Tender, Non Distended, Soft - Extremities Extremities Exam: POSITIVE: No Clubbing Present, No Edema Present, No Cyanosis Present - Neurological Neurological Exam: POSITIVE: Alert, Oriented x 3, No Facial Droop, Speech Intact / Clear, Moves All Extremities Equally - Psychiatric Psychiatric Exam: POSITIVE: Normal Affect, Normal Mood Data Perinent Studies: Laboratory Results 04/24/17 04/25/17 04/25/17 Range/Units 14:40 05:57 15:29 WBC 9.29 7.61 (4.8-10.8) 10^3/uL RBC 4.58 3.58 L (4.20-5.40) 10^6/uL Hgb 15.5 12.0 (12.0-16.0) g/dL Hct 43.6 35.7 L (37.0-47.0) % MCV 95.2 99.7 H (81-99) FL MCH 33.8 H 33.5 H (27-31) PG MCHC 35.6 33.6 (33-37) g/dL RDW Std Deviation 47.2 49.3 (39-50) fL RDW Coeff of Farzad 14.0 14.0 (11.5-14.5) % Plt Count 416 H 300 (140-350) 10*3/uL MPV 9.6 9.7 (7.4-12.2) FL Immature Gran % (Auto) 0.4 0.8 (0-5) % Neut % (Auto) 74.0 51.3 (50-80) % Lymph % (Auto) 21.4 39.2 (10-50) % [place] % (Auto) 3.1 L 7.0 (5-15) % Eos % (Auto) 0.1 0.8 (0-8) % Baso % (Auto) 1.0 0.9 (0-1) % Immature Gran # (Auto) 0.04 0.06 10*3/UL Neut # (Auto) 6.87 3.91 10*3/UL Lymph # (Auto) 1.99 2.98 10*3/uL [place] # (Auto) 0.29 L 0.53 (0.3-0.8) 10*3/UL Eos # (Auto) 0.01 0.06 10*3/UL Baso # (Auto) 0.09 0.07 10*3/UL WBC Morphology Comment Normal morphology Normal morphology (NORM) Plt Morphology Comment Normal morphology Normal morphology (NORM) RBC Morph Comment Normal morphology Normal morphology (NORM) Sodium 135 136 (135-145) meq/L Potassium 3.6 L 3.3 L (3.8-5.2) meq/L Chloride 92 L 103 (98-112) meq/L Carbon Dioxide 18 L 23 (23-33) meq/L Anion Gap 25 H 10 (5-20) BUN 29 H 23 H (7-22) mg/dL Creatinine 1.4 H 0.9 (0.50-1.20) mg/dL Estimated GFR 41 > 60 (>60 ml/min/1.73m(2)) BUN/Creatinine Ratio 20.71 H 25.55 H (6-20) Glucose 189 H 100 (78-110) mg/dL Calculated Osmolality 290.0 285.0 (267-292) mOsm/kg Calcium 11.3 H 8.6 L (8.7-10.7) mg/dL Magnesium 1.2 L 2.2 (1.6-2.4) mg/dL Total Bilirubin 1.2 (0.3-1.2) mg/dL AST 84 H (8-39) IU/L ALT 42 (9-52) IU/L Alkaline Phosphatase 86 (38-126) IU/L C-Reactive Protein < 0.5 (0.0-0.9) mg/dL Total Protein 8.8 H (6.1-8.0) g/dL Albumin 5.3 H (3.5-4.8) g/dL Globulin 3.5 (2.50-4.10) g/dL Albumin/Globulin Ratio 1.50 (1.3-2.0) mg/g Amylase 47 (30-110) U/L Lipase 44 (23-300) IU/L Serum HCG, Qual Positive HCG, Quant 4.39 mIU/ML Ur Collection Type Voided specimen Urine Color Yellow Urine Clarity Clear (CLEAR) Urine pH 7.0 (5.0-8.5) Ur Specific [place] 1.010 (1.005-1.030) U Specif Grav (Refrac) 1.010 Urine Protein Negative (NEG) mg/dl Urine Glucose (UA) Negative (NEG) mg/dL Urine Ketones Negative (NEG) Urine Occult Blood Negative (NEG) Urine Nitrate Negative (NEG) Urine Bilirubin Negative (NEG) Urine Urobilinogen 1.0 (0.2) EU/dL Ur Leukocyte Esterase Small (NEG) Urine RBC None (NONE) /hpf Urine WBC 25-50 (NONE) Ur Squamous Epith Cells Rare (NONE) Ur Renal Epithelial Cell None (NONE) Urine Crystals None Urine Bacteria Many (NONE) Urine Casts None (NONE) Urine Mucus None (NONE) Urine Trichomonas None (NONE) Urine Yeast None (NONE) Ur Culture Indicated? Culture set Urine Opiates Screen Positive H (NEG) Ur Buprenorphine Negative (NEG) Ur Oxycodone Screen Negative (NEG) Urine Methadone Screen Negative (NEG) Ur Propoxyphene Screen Negative (NEG) Barbiturate Screen Negative (NEG) U Tricyclic Antidepress Negative (NEG) Phencyclidine Screen Negative (NEG) Amphetamines Screen Negative (NEG) U Methamphetamines Scrn Negative (NEG) Benzodiazepines Screen Positive H (NEG) Cocaine Screen Negative (NEG) U Marijuana (THC) Screen Negative (NEG) Serum Alcohol < 10 (0-10) mg/dL Patient Problems - Patient Problem List (1) Abdominal pain, recurrent Current Visit: Yes Status: Acute (2) Acute renal failure Current Visit: Yes Status: Resolved Qualifiers: Acute renal failure type: unspecified Qualified Description: Acute renal failure, unspecified acute renal failure type Qualifier Code(s): ( N17.9) Acute kidney failure, unspecified (3) Elevated serum hCG in female, not Current Visit: Yes Status: Acute (4) Nausea and vomiting Current Visit: Yes Status: Acute (5) Hypertension Current Visit: No Status: Acute Qualifiers: Hypertension type: essential hypertension Qualified Description: Essential hypertension Qualifier Code(s): (I10) Essential (primary) hypertension (6) Hypokalemia Current Visit: Yes Status: Acute (7) Hypomagnesemia syndrome Current Visit: Yes Status: Acute (8) Depression with anxiety Current Visit: Yes Status: Chronic (9) Urinary tract infection Current Visit: No Status: Acute Comment: Present on admission Qualifiers: Urinary tract infection type: acute cystitis Hematuria presence: without hematuria Qualified Description: Acute cystitis without hematuria Qualifier Code(s): (N30.00) Acute cystitis without hematuria
[2017-04-26] MEDS ORDERED: CEPHALEXIN 500 MG CAPSULE PO SCH (21:00)
[2017-04-27] MEDS ORDERED: LOSARTAN 50 MG TABLET PO SCH (07:00)
[2017-04-28 12:05] LABS: HEPTACARBOXYPORPHYRIN <1 nmol/L (<=7); HEXACARBOXYPORPHYRIN <1 nmol/L (<=2)
[2017-04-28 16:30] LABS: INTERPRETATION SEE COMMENTS (())
== END 2017-04-26 15:16 | disposition home or self-care (01) | DRG 683 ==
LOC: ER 14:31 → MED/SURG 15:50
PROVIDERS: ADMIT Family Medicine; ATTEND Family Medicine
DX: N17.9 Acute kidney failure, unspecified (principal); N39.0 Urinary tract infection, site not specified; B96.89 Other specified bacterial agents as the cause of diseases classified elsewhere; I10 Essential (primary) hypertension; E87.6 Hypokalemia; E83.42 Hypomagnesemia; F41.8 Other specified anxiety disorders
CPT/HCPCS: 36415; 74177; 76830; 78264; 80048; 80053; 80305; 80320; 81001; 81003; 82150; 83690; 83735; 84110; 84120; 84311; 84702; 84703; 85025; 86140; 87077; 87088; 87186; 96361; 96374; 96375; 99285; J0780; J2060; J2270; J2405; J3475; J3480; J3490; J7030

== ENCOUNTER 2017-05-26 19:40 | Emergency (ER) | payer SELFPAY ==
[2017-05-26] MEDS ORDERED: Ondansetron ODT Tab 4 MG TAB PO ONE ×2 (19:53→19:55)
[2017-05-26] MEDS ORDERED: Sodium Chloride 0.9% 1,000 ML PRIMARY IV ONE (19:59)
[2017-05-26] MEDS ORDERED: NORMAL SALINE 10 ML SYRINGE FLUSH IVP PRN (19:59)
[2017-05-26] MEDS ORDERED: Sodium Chloride 0.9% 1,000 ML, Magnesium Sulfate 2gm (Premix) 50 ML with Multivitamin I... IV ONE ×5 (20:01)
[2017-05-26] MEDS: ONDANSETRON 4 MG/2 ML VIAL IVP ONE ×3 (20:17→21:50)
[2017-05-26 20:30] LABS: BASOPHILS # (AUTO) 0.09 10*3/UL; BASOPHILS % (AUTO) 1.6 % (0-1); EOSINOPHILS # (AUTO) 0.03 10*3/UL; EOSINOPHILS % (AUTO) 0.5 % (0-8); HEMATOCRIT 37.4 % (37.0-47.0); LYMPHOCYTES # (AUTO) 2.44 10*3/uL; MEAN CORPUSCULAR HEMOGLOBIN 33.4 PG (27-31); MEAN CORPUSCULAR HGB CONC 34.8 g/dL (33-37); MEAN CORPUSCULAR VOLUME 96.1 FL (81-99); MONOCYTES % (AUTO) 5.3 % (5-15); NEUTROPHILS # (AUTO) 2.83 10*3/UL; NEUTROPHILS % (AUTO) 49.6 % (50-80); RED BLOOD COUNT 3.89 10^6/uL (4.20-5.40)
[2017-05-26 20:31] LABS: PLATELET MORPHOLOGY COMMENT NORMAL MORPHOLOGY (NORM); RBC MORPHOLOGY COMMENT NORMAL MORPHOLOGY (NORM); WBC MORPHOLOGY COMMENT NORMAL MORPHOLOGY (NORM)
[2017-05-26 20:37] LABS: MAGNESIUM 1.1 mg/dL (1.6-2.4)
[2017-05-26 20:38] LABS: BLOOD UREA NITROGEN 14 mg/dL (7-22); BUN/CREATININE RATIO 15.55 (6-20); CALCIUM 9.5 mg/dL (8.7-10.7); EST GLOMERULAR FILTRATION > 60 (>60 ml/min/1.73m(2)); SERUM ALBUMIN 4.8 g/dL (3.5-4.8)
[2017-05-26] MEDS: HYDROmorphone 2 MG/1 ML IVP ONE ×2 (20:45→23:04)
[2017-05-26] MEDS ORDERED: ONDANSETRON 4 MG/2 ML VIAL ONE (20:50)
[2017-05-26] MEDS ORDERED: HYDROmorphone 2 MG/1 ML ONE (20:50)
[2017-05-26 21:19] LABS: BILIRUBIN,URINE NEGATIVE (NEG); CLARITY,URINE CLEAR (CLEAR); COLOR,URINE YELLOW; GLUCOSE, URINE (UA) NEGATIVE (NEG); NITRATE,URINE POSITIVE (NEG); OCCULT BLOOD,URINE NEGATIVE (NEG); PROTEIN,URINE TRACE mg/dl (NEG); UROBILINOGEN,URINE 0.2 EU/dL (0.2)
[2017-05-26 21:22] LABS: BACTERIA,URINE MANY; SQUAMOUS EPITHELIAL CELL,UR MODERATE; URINE SAMPLE TYPE VOIDED SPECIMEN
[2017-05-26 21:27] LABS: AMPHETAMINE SCREEN NEGATIVE (NEG); CANNABINOID SCREEN,URINE NEGATIVE (NEG); COCAINE SCREEN NEGATIVE (NEG); METHADONE URINE SCREEN NEGATIVE (NEG); METHAMPHETAMINES SCREEN,URINE NEGATIVE (NEG); OPIATE SCREEN,URINE POSITIVE (NEG)
[2017-05-26] MEDS ORDERED: cefTRIAXone Inj 1 GM in Sodium Chloride 0.9% 100 ML IV ONE (21:57)
[2017-05-26 22:56] VITALS: RESP 28; TEMP 98.6
--- NOTE | 2017-05-27 02:40 | PDOC ---
General Adult HPI - General Chief Complaint: Nausea / Vomiting / Diarrhea Stated Complaint: N/V WITH ABD. PAIN, BINGE DRINKING Date Seen by Provider: 05/26/17 Time Seen by Provider: 19:51 Source: POSITIVE: Patient, Old records Exam Limitations: POSITIVE: No limitations Nurse's Notes Reviewed & Considered: Yes - History of Present Illness Initial Comment: The patient is a 46 year old female. Patient has a long-standing history of chronic alcoholism. She has had alcoholic pancreatitis in the past and a frequent history of alcoholic gastritis. Patient states that she stopped drinking 3 months ago, but 2 days ago she again started drinking heavily and states she's had about a fifth of rum daily since that time. She's had an appendectomy and a cholecystectomy. History of hypertension. She complains of nausea and vomiting. She also complains of some periumbilical abdominal discomfort. No melena, hematochezia, hematemesis, dysuria or hematuria. Have you received a tetanus shot in the past 10 years?: Unknown Body Location Affected: REPORTS: Abdomen, Other (As above) Timing: REPORTS: Constant Duration: >24 hours (On an alcohol binge for the past 2 days) Severity: Moderate (Paraumbilical area) Quality: REPORTS: "Pain" Context: REPORTS: Other (Associated with alcoholic binge for the past 2 days) Modifying Factors: improves with: Vomiting Similar Symptoms Previously: Yes Recent Care Received: REPORTS: Denies Any Prior Injuries Related to Current Complaint?: No - Patient Home Medications Home Medications: Home Medications Amlodipine Besylate 5 mg PO DAILY #30 tablet 11/29/16 Metoprolol Tartrate 25 mg PO BID #60 tab 11/29/16 Cyanocobalamin (Vitamin B-12) [Vitamin B-12] 1,000 mcg PO DAILY #90 tablet 03/12 Escitalopram Oxalate [Lexapro] 1 tab PO DAILY #30 tab 03/21/17 Losartan [Cozaar] 100 mg PO EVERY AM #30 tab 04/26/17 Potassium Chloride [Klor-Con] 20 meq PO DAILY #30 tab 04/26/17 - Patient Allergies Allergies/Adverse Reactions: Allergies Allergy/AdvReac Type Severity Reaction Status Date / Time codeine AdvReac HALLUCINATI Verified 05/26/17 21:36 ONS levofloxacin [From Levaquin] AdvReac HALLUCINATI Verified 05/26/17 21:36 ONS oxycodone Nabil HERBERTTI Verified 05/26/17 21:36 ONS Past Medical History - heen HEENT History: Other (please comment) Additional HEENT History: WEARS GLASSES. "BULL'S EYE VISION" Cardiovascular History: Hypertension, Other (please comment) Additional Cardiovasular History: PALPITATIONS Respiratory History: Pneumonia, Snoring, Other (please comment) Additional Respiratory History: chronic tobacco use Gastrointestinal History: GERD, Gallbladder Disease, Pancreatitis, Other ( please comment) Additional Gastrointestinal History: Chronic alcoholism. elevated liver enzymes Genitourinary History: Denies History Endocrine History: Denies History Musculoskeletal History: Joint Pain, Other (please comment) Prosthesis or Implant: Yes (BREAST AUGMENTATION) Additional Musculoskeletal History: Pt fell down several stairs and fractured right shoulder. Pt had surgery on shoulder to repair fracture. X2 Neurological History: Seizures, Other (please comment) Additional Neurological History: SEIZURE WITH DETOX Blood Disorders: Denies History Psychiatric History: Depression, Anxiety Disorders, Substance Abuse Additional Psychiatric History: ALCOHOLISM: CHRONIC AND RECURRENT. PANIC DISORDER. PATIENT RECENTLY ATTEMPTED REHAB History of Sexually Transmitted Diseases: No Female Reproductive History: Denies History Obstetrical History: Denies History Cancer History: Denies History In Past Year Been Physically Harmed or Verbally Threatened: No History of MDRO: Yes Type of MDRO: MRSA Other Type of MDRO: TESTED POSITIVE 2014 FOLLOWED BY 2 NEG SWABS History of Other Communicable Diseases: Yes (MONO, VARICELLA) Tobacco Use: Current Every Day Smoker Alcohol Use: Heavy Type of alcohol normally used: Hard Liquor How much alcohol do you normally drink a day?: DRANK 5TH OF RUM Substance Use Type: None Previous Surgical History: Yes Type / Date of Surgery: APPENDECTOMY, CHOLECYSTECTOMY, ABDOMINOPLASTY, BREAST AUGMENTATION, Right shoulder surgeryX2 Anesthesia Reactions: No Malignant Hyperthermia: No Significant Family History: Asthma, Heart disease, Cancer, Diabetes, Hypertension Additional Family History: EARLY MENOPAUSE - MOTHER Past Medical History Reviewed: Reviewed - No Changes ROS - Limitations ROS Limitations: No Limitations, Intoxication (Smells strongly of alcohol, but is alert and cooperative.) Constitution: REPORTS: Denies Symptoms Cardiovascular: REPORTS: Denies Cardiac Symptoms Respiratory: REPORTS: Denies Resp Symptoms Neurological: REPORTS: Denies Neuro Symptoms Gastrointestinal: REPORTS: Abdominal Pain, Nausea, Vomitting Endocrine: REPORTS: Denies Symptoms Musculoskeletal: REPORTS: Denies MS Symptoms Genitourinary: REPORTS: Denies Symptoms Eyes: REPORTS: Denies Symptoms ENT: REPORTS: Denies Symptoms Skin: REPORTS: Denies Skin Symptoms Lympathic: REPORTS: Denies Lympathic Symptoms Immunologic: POSITIVE: Denies Symptoms Psychiatric: POSITIVE: Denies Psych Symptoms. NEGATIVE: Suicidal Thoughts, Homicidal Thoughts General Adult Exam - General Appearance General Appearance: POSITIVE: Alert, Cooperative, No Evidence of Trauma, Moderate Distress. NEGATIVE: No Acute Distress - HEENT HEENT: POSITIVE: Head Inspection Nml, Eyes Inspection Nml, Ears Inspection Nml, Nose Inspection Nml, Oral/Dental Inspect. Nml, Pharynx Inspect. Nml, PERRL, EOMI - Pupils Pupil Size: 3 mm: Bilateral (PERRLA) - Neck Neck: POSITIVE: Normal Inspection, Thyroid Normal - Respiratory Respiratory: POSITIVE: No Respiratory Distress, Breath Sounds Normal, Chest Non- Tender - Cardiovascular Cardiovascular: POSITIVE: Regular Rate & Rhythm, No Murmur, No Gallop, PMI Normal Peripheral Pulses: Radial (R): 2+, Radial (L): 2+ - Abdomen Abdomen: Soft: (All Quadrants), Normal Bowel Sounds: (All Quadrants), Denies Tenderness: (RUQ), (LUQ), (RLQ), (LLQ) (paraumbilical area), No Splenomegaly: ( All Quadrants), No Hepatomegaly: (All Quadrants), No Guarding: (All Quadrants), No Rebound: (All Quadrants), No Palpable Pulse: (All Quadrants), No Palpabale Mass: (All Quadrants), No Distention: (All Quadrants), No Rigidity: (All Quadrants), Tenderness Noted: (RUQ), (LUQ), (RLQ), (LLQ) (paraumbilical area) Additional Abdominal Details: Abdominal examination shows bowel sounds to be active. Patient does express some discomfort on firm palpation over the paraumbilical area; patient has had similar complaints when she is acutely intoxicated. She has been diagnosed with alcoholic pancreatitis and alcoholic gastritis in the past. 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 As Tested, Motor Normal, Sensation Normal, 5, 6 Images - Complete Complete: 1 - Area of described discomfort General Adult Progress - Results Reviewed by me Lab Results Reviewed: Yes (blood alcohol 173; 10-15 white blood cells per high power field) Lab Results:: Laboratory Results 05/26/17 05/26/17 Range/Units 20:25 21:14 WBC 5.70 (4.8-10.8) 10^3/uL RBC 3.89 L (4.20-5.40) 10^6/uL Hgb 13.0 (12.0-16.0) g/dL Hct 37.4 (37.0-47.0) % MCV 96.1 (81-99) FL MCH 33.4 H (27-31) PG MCHC 34.8 (33-37) g/dL RDW Std Deviation 46.9 (39-50) fL RDW Coeff of Farzad 13.8 (11.5-14.5) % Plt Count 350 (140-350) 10*3/uL MPV 9.0 (7.4-12.2) FL Immature Gran % (Auto) 0.2 (0-5) % Neut % (Auto) 49.6 L (50-80) % Lymph % (Auto) 42.8 (10-50) % [place] % (Auto) 5.3 (5-15) % Eos % (Auto) 0.5 (0-8) % Baso % (Auto) 1.6 H (0-1) % Immature Gran # (Auto) 0.01 10*3/UL Neut # (Auto) 2.83 10*3/UL Lymph # (Auto) 2.44 10*3/uL [place] # (Auto) 0.30 (0.3-0.8) 10*3/UL Eos # (Auto) 0.03 10*3/UL Baso # (Auto) 0.09 10*3/UL WBC Morphology Comment Normal morphology (NORM) Plt Morphology Comment Normal morphology (NORM) RBC Morph Comment Normal morphology (NORM) Sodium 141 (135-145) meq/L Potassium 3.1 L (3.8-5.2) meq/L Chloride 102 (98-112) meq/L Carbon Dioxide 14 L (23-33) meq/L Anion Gap 25 H (5-20) BUN 14 (7-22) mg/dL Creatinine 0.9 (0.50-1.20) mg/dL Estimated GFR > 60 (>60 ml/min/1.73m(2)) BUN/Creatinine Ratio 15.55 (6-20) Glucose 192 H (78-110) mg/dL Calculated Osmolality 297.0 H (267-292) mOsm/kg Calcium 9.5 (8.7-10.7) mg/dL Magnesium 1.1 L (1.6-2.4) mg/dL Total Bilirubin 0.8 (0.3-1.2) mg/dL AST 54 H (8-39) IU/L ALT 61 H (9-52) IU/L Alkaline Phosphatase 107 (38-126) IU/L Total Protein 7.5 (6.1-8.0) g/dL Albumin 4.8 (3.5-4.8) g/dL Globulin 2.8 (2.50-4.10) g/dL Albumin/Globulin Ratio 1.70 (1.3-2.0) mg/g Amylase 65 (30-110) U/L Lipase 53 (23-300) IU/L Serum HCG, Qual Negative Ur Collection Type Voided specimen Urine Color Yellow Urine Clarity Clear (CLEAR) Urine pH 6.0 (5.0-8.5) Ur Specific [place] 1.020 (1.005-1.030) U Specif Grav (Refrac) 1.020 Urine Protein Trace (NEG) mg/dl Urine Glucose (UA) Negative (NEG) mg/dL Urine Ketones 80 (NEG) Urine Occult Blood Negative (NEG) Urine Nitrate Positive H (NEG) Urine Bilirubin Negative (NEG) Urine Urobilinogen 0.2 (0.2) EU/dL Ur Leukocyte Esterase Negative (NEG) Urine RBC None (NONE) /hpf Urine WBC 10-15 (NONE) Ur Squamous Epith Cells Moderate (NONE) Ur Renal Epithelial Cell None (NONE) Urine Crystals None Urine Bacteria Many (NONE) Urine Casts None (NONE) Urine Mucus None (NONE) Urine Trichomonas None (NONE) Urine Yeast None (NONE) Ur Culture Indicated? Culture set Urine Opiates Screen Positive H (NEG) Ur Buprenorphine Negative (NEG) Ur Oxycodone Screen Negative (NEG) Urine Methadone Screen Negative (NEG) Ur Propoxyphene Screen Negative (NEG) Barbiturate Screen Negative (NEG) U Tricyclic Antidepress Negative (NEG) Phencyclidine Screen Negative (NEG) Amphetamines Screen Negative (NEG) U Methamphetamines Scrn Negative (NEG) Benzodiazepines Screen Negative (NEG) Cocaine Screen Negative (NEG) U Marijuana (THC) Screen Negative (NEG) Serum Alcohol 173 H (0-10) mg/dL - Patient's Progress Pain Medication Addressed: POSITIVE: Yes (Patient medicated with Dilaudid and Zofran) School/Work Release Addressed: POSITIVE: Not Applicable Re-Examine Time: 00:15 Re-Examine Comment: Patient hydrated with in excess of a liter of normal saline IV and was given a banana bag of folic acid 1 mg, magnesium sulfate 2 g, and thiamine 100 mg. In view of her nitrate positive urine and 10-15 white blood cells per high-power field, the patient was given a gram of Rocephin for probable urinary tract infection. Pain and nausea was treated with Dilaudid and Zofran. Patient's nausea and vomiting, and her abdominal discomfort, are resolved on discharge. Status: POSITIVE: Improved, Re-Examined Antibiotics Given: Yes (Rocephin 1 g IV) - Consult Counseled: POSITIVE: Patient, RE: Lab Results, RE: DX, RE: Need for F/U Patient Care Time - Estimated PCT Patient Care Time (In Minutes): 65 Vital Signs - Recent Vital Signs Vital Signs: Vital Signs (Last 8 hours) Temp Pulse Pulse Resp BP BP Pulse Ox 05/26/17 22:50 98.6 F 104 H 28 H 159/94 97 05/26/17 21:00 22 168/109 98 05/26/17 20:40 97.6 F 111 H 22 168/109 05/26/17 19:43 97.6 F 111 H 28 H 209/118 100 - VS Reviewed Vital Signs Reviewed: Yes Discharge Clinical Impression: Alcohol abuse, Nausea and vomiting, Continuous chronic alcoholism Discharge Disposition: Discharged to Home Condition: Good Patient Instructions Given at Discharge: Alcohol Intoxication (ED), Acute Nausea and Vomiting (ED) Additional Instructions: Clear liquid diet for 12 hours. Stop drinking alcohol. Follow-up with your primary care provider. Return here as necessary. Follow Up With: KITTY LAGUNA [Primary Care Provider] - (Stop drinking alcohol. Follow-up with your primary care provider. Return here as necessary.)
== END 2017-05-27 00:20 | disposition home or self-care (01) ==
LOC: ER 19:40
DX: R11.2 Nausea with vomiting, unspecified (principal); R10.33 Periumbilical pain; I10 Essential (primary) hypertension; F10.229 Alcohol dependence with intoxication, unspecified
CPT/HCPCS: 36415; 80053; 80305; 80320; 81001; 81003; 82150; 83690; 83735; 84703; 85025; 87077; 87088; 87186 ×2; 96361; 96365; 96366; 96368; 96375; 96376; 99282; 99283; J0696; J2405; J3411; J1170; J3475; J7030; J7050

== ENCOUNTER 2017-05-27 20:00 | Emergency (ER) | payer SELFPAY ==
[2017-05-27 20:12] VITALS: RESP 20; TEMP 96.6
[2017-05-27] MEDS ORDERED: Ondansetron ODT Tab 8 MG TAB PO ONE (20:23)
[2017-05-27] MEDS ORDERED: ONDANSETRON 4 MG/2 ML VIAL IVP ONE (20:25)
--- NOTE | 2017-05-27 20:29 | PDOC ---
Nausea/Vomiting/Diarrhea HPI - General Chief Complaint: Nausea / Vomiting / Diarrhea Stated Complaint: NAUSEA AND VOMITING Date Seen by Provider: 05/27/17 Time Seen by Provider: 20:25 Source: POSITIVE: Patient Exam Limitations: POSITIVE: No limitations Nurse's Notes Reviewed & Considered: Yes - History of Present Illness Initial Comments: This is a 46-year-old chronic alcoholic who is well-known to the emergency department who comes in tonight because of vomiting. Patient states she has been sober for 3 months until several nights ago when she had alcohol but is subsequently been sober for the last 24 hours. Complaining now of vomiting and nausea. She denies any headache, no sore throat, no chest pain, she does have some mild shortness of breath that is chronic in nature, she has nausea and vomiting but no diarrhea, denies any hematuria or dysuria, denies any abdominal pain. She was seen in the emergency department last night for the same and had an extensive workup done that was essentially normal, but a blood alcohol of 174. Body Location Affected: REPORTS: Abdomen Timing: REPORTS: Constant Duration: <1 week Severity: Moderate Quality: REPORTS: Cramping Abdominal Pain Onset Location: REPORTS: Epigastric Abdominal Pain Radiation: REPORTS: No radiation Context: REPORTS: Other (Recent alcohol ingestion.) Modifying Factors: improves with: Nothing Associated Symptoms: REPORTS: Vomiting Similar Symptoms Previously: Yes Recent Care Received: REPORTS: Recently Seen, Treated by MD Any Prior Injuries Related to Current Complaint?: No - Patient Home Medications Home Medications: Home Medications Amlodipine Besylate 5 mg PO DAILY #30 tablet 11/29/16 Metoprolol Tartrate 25 mg PO BID #60 tab 11/29/16 Cyanocobalamin (Vitamin B-12) [Vitamin B-12] 1,000 mcg PO DAILY #90 tablet 03/12 Escitalopram Oxalate [Lexapro] 1 tab PO DAILY #30 tab 03/21/17 Losartan [Cozaar] 100 mg PO EVERY AM #30 tab 04/26/17 Potassium Chloride [Klor-Con] 20 meq PO DAILY #30 tab 04/26/17 - Patient Allergies Allergies/Adverse Reactions: Allergies Allergy/AdvReac Type Severity Reaction Status Date / Time codeine AdvReac HALLUCINATI Verified 05/27/17 20:04 ONS levofloxacin [From Levaquin] AdvReac HALLUCINATI Verified 05/27/17 20:04 ONS oxycodone SanderReeamon BOOKERINATI Verified 05/27/17 20:04 ONS Past Medical History - heen HEENT History: Other (please comment) Additional HEENT History: WEARS GLASSES. "BULL'S EYE VISION" Cardiovascular History: Hypertension, Other (please comment) Additional Cardiovasular History: PALPITATIONS Respiratory History: Pneumonia, Snoring, Other (please comment) Additional Respiratory History: chronic tobacco use Gastrointestinal History: GERD, Gallbladder Disease, Pancreatitis, Other ( please comment) Additional Gastrointestinal History: Chronic alcoholism. elevated liver enzymes Genitourinary History: Denies History Endocrine History: Denies History Musculoskeletal History: Joint Pain, Other (please comment) Prosthesis or Implant: Yes (BREAST AUGMENTATION) Additional Musculoskeletal History: Pt fell down several stairs and fractured right shoulder. Pt had surgery on shoulder to repair fracture. X2 Neurological History: Seizures, Other (please comment) Additional Neurological History: SEIZURE WITH DETOX Blood Disorders: Denies History Psychiatric History: Depression, Anxiety Disorders, Substance Abuse Additional Psychiatric History: ALCOHOLISM: CHRONIC AND RECURRENT. PANIC DISORDER. PATIENT RECENTLY ATTEMPTED REHAB History of Sexually Transmitted Diseases: No Female Reproductive History: Denies History Obstetrical History: Denies History Cancer History: Denies History In Past Year Been Physically Harmed or Verbally Threatened: No History of MDRO: Yes Type of MDRO: MRSA Other Type of MDRO: TESTED POSITIVE 2014 FOLLOWED BY 2 NEG SWABS History of Other Communicable Diseases: Yes (MONO, VARICELLA) Tobacco Use: Current Every Day Smoker Alcohol Use: Heavy Substance Use Type: None Previous Surgical History: Yes Type / Date of Surgery: APPENDECTOMY, CHOLECYSTECTOMY, ABDOMINOPLASTY, BREAST AUGMENTATION, Right shoulder surgeryX2 Anesthesia Reactions: No Malignant Hyperthermia: No Significant Family History: Asthma, Heart disease, Cancer, Diabetes, Hypertension Additional Family History: EARLY MENOPAUSE - MOTHER ROS - Limitations ROS Limitations: No Limitations Constitution: REPORTS: Diaphoresis Cardiovascular: REPORTS: Denies Cardiac Symptoms Respiratory: REPORTS: Shortness Of Breath Neurological: REPORTS: Denies Neuro Symptoms Gastrointestinal: REPORTS: Nausea, Vomitting Endocrine: REPORTS: Denies Symptoms Musculoskeletal: REPORTS: Denies MS Symptoms Genitourinary: REPORTS: Denies Symptoms Eyes: REPORTS: Denies Symptoms ENT: REPORTS: Denies Symptoms Skin: REPORTS: Denies Skin Symptoms Lympathic: REPORTS: Denies Lympathic Symptoms Immunologic: POSITIVE: Denies Symptoms Psychiatric: POSITIVE: Denies Psych Symptoms Nausea/Vomiting/Diarrhea Exam - General Appearance General Appearance: POSITIVE: Alert, Cooperative, No Evidence of Trauma, Mild Distress - HEENT HEENT: POSITIVE: Head Inspection Nml, Eyes Inspection Nml, Ears Inspection Nml, Nose Inspection Nml, Oral/Dental Inspect. Nml, Pharynx Inspect. Nml, PERRL, EOMI - Neck Neck: POSITIVE: Supple, Normal Inspection, Non Tender - Respiratory Respiratory: POSITIVE: No Respiratory Distress, Breath Sounds Normal, Chest Non- Tender - Cardiovascular Cardiovascular: POSITIVE: Regular Rate and Rhythm, Heart Sounds Normal, Equal Pulses, Strong Pulses - Chest Chest: POSITIVE: Non Tender - Abdomen Abdomen: Soft: (All Quadrants), Normal Bowel Sounds: (All Quadrants), Denies Tenderness: (All Quadrants), No Splenomegaly: (All Quadrants), No Hepatomegaly: (All Quadrants), No Guarding: (All Quadrants), No Rebound: (All Quadrants), No Palpable Pulse: (All Quadrants), No Palpabale Mass: (All Quadrants), No Distention: (All Quadrants), No Rigidity: (All Quadrants) - Back Back: POSITIVE: Normal Inspection - Skin Skin: POSITIVE: Intact, Normal For Race, Warm, Dry, No Rash - Extremities Extremity: Non-Tender: (All Extremities), Normal ROM: (All Extremities), Normal Inspection: (All Extremities) - Neurological / Psychological Neurological: 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, 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 She received oral Zofran and then elected to leave. Assessment: Nausea and vomiting most likely related to alcohol ingestion. Plan: Patient left AMA. Patient Care Time - Estimated PCT Patient Care Time (In Minutes): 10 Vital Signs - Recent Vital Signs Vital Signs: Vital Signs (Last 8 hours) Temp Pulse Resp BP Pulse Ox 05/27/17 20:05 96.6 F L 115 H 20 160/120 97 - VS Reviewed Vital Signs Reviewed: Yes Discharge Clinical Impression: Nausea and vomiting Discharge Disposition: Against Medical Advice Condition: Stable Follow Up With: KITTY LAGUNA [Primary Care Provider] -
[2017-05-27] MEDS ORDERED: PROMETHAZINE 25 MG/1 ML VIAL IM ONE (22:54)
== END 2017-05-27 20:30 | disposition left against medical advice (07) ==
LOC: ER 20:00
DX: R11.2 Nausea with vomiting, unspecified (principal); R06.02 Shortness of breath; R10.13 Epigastric pain; F10.10 Alcohol abuse, uncomplicated
CPT/HCPCS: 96372; 99282 ×2; J2550; Q0162

== ENCOUNTER 2017-05-31 19:30 | Emergency (ER) | payer SELFPAY ==
[2017-05-31 19:43] VITALS: RESP 20; TEMP 98.4
[2017-05-31] MEDS ORDERED: Belladon/PHENobarbital Elixir 10 ML, Lidocaine Viscous Liquid 2% 15 ML, Mag Hyd/Al Hyd/... PO ONE ×3 (19:46)
[2017-05-31] MEDS ORDERED: PROMETHAZINE 25 MG/1 ML VIAL IM ONE (19:46)
--- NOTE | 2017-05-31 19:46 | PDOC ---
Nausea/Vomiting/Diarrhea HPI - General Chief Complaint: Nausea / Vomiting / Diarrhea Stated Complaint: NAUSEA AND VOMITING Date Seen by Provider: 05/31/17 Time Seen by Provider: 19:45 Source: POSITIVE: Patient Exam Limitations: POSITIVE: No limitations - History of Present Illness Initial Comments: Ashley is a 46-year-old female who presents to the emergency department for evaluation of nausea and vomiting. Patient indicates that this is been present for the last few days. She has a history of chronic alcohol abuse and recently relapsed. She has been seen in the ER and urgent care for similar. She was seen in urgent care today given a shot of promethazine which helped but now her symptoms are worsening again. Patient does have abdominal discomfort. She does describe this is diffuse. No specific exacerbating or relieving factors. Moderate in overall severity. Patient indicates she has had some diarrhea as well. Patient denies fevers or chills. - Patient Home Medications Home Medications: Home Medications Amlodipine Besylate 5 mg PO DAILY #30 tablet 11/29/16 Metoprolol Tartrate 25 mg PO BID #60 tab 11/29/16 Cyanocobalamin (Vitamin B-12) [Vitamin B-12] 1,000 mcg PO DAILY #90 tablet 03/12 Escitalopram Oxalate [Lexapro] 1 tab PO DAILY #30 tab 03/21/17 Losartan [Cozaar] 100 mg PO EVERY AM #30 tab 04/26/17 Potassium Chloride [Klor-Con] 20 meq PO DAILY #30 tab 04/26/17 Ondansetron [Zofran Odt] 8 mg PO Q8H #10 tab 05/30/17 Promethazine HCl 25 mg PO Q6H PRN #15 tab 05/31/17 - Patient Allergies Allergies/Adverse Reactions: Allergies Allergy/AdvReac Type Severity Reaction Status Date / Time codeine AdvReac HALLUCINATI Verified 05/31/17 19:36 ONS levofloxacin [From Levaquin] AdvReac HALLUCINATI Verified 05/31/17 19:36 ONS oxycodone AdvReac HALLUCINATI Verified 05/31/17 19:36 ONS Past Medical History - heen HEENT History: Other (please comment) Additional HEENT History: WEARS GLASSES. "BULL'S EYE VISION" Cardiovascular History: Hypertension, Other (please comment) Additional Cardiovasular History: PALPITATIONS Respiratory History: Pneumonia, Snoring, Other (please comment) Additional Respiratory History: chronic tobacco use Gastrointestinal History: GERD, Gallbladder Disease, Pancreatitis, Other ( please comment) Additional Gastrointestinal History: Chronic alcoholism. elevated liver enzymes Genitourinary History: Denies History Endocrine History: Denies History Musculoskeletal History: Joint Pain, Other (please comment) Prosthesis or Implant: Yes (BREAST AUGMENTATION) Additional Musculoskeletal History: Pt fell down several stairs and fractured right shoulder. Pt had surgery on shoulder to repair fracture. X2 Neurological History: Seizures, Other (please comment) Additional Neurological History: SEIZURE WITH DETOX Blood Disorders: Denies History Psychiatric History: Depression, Anxiety Disorders, Substance Abuse Additional Psychiatric History: ALCOHOLISM: CHRONIC AND RECURRENT. PANIC DISORDER. PATIENT RECENTLY ATTEMPTED REHAB History of Sexually Transmitted Diseases: No Female Reproductive History: Denies History Obstetrical History: Denies History Cancer History: Denies History In Past Year Been Physically Harmed or Verbally Threatened: No History of MDRO: Yes Type of MDRO: MRSA Other Type of MDRO: TESTED POSITIVE 2014 FOLLOWED BY 2 NEG SWABS History of Other Communicable Diseases: Yes (MONO, VARICELLA) Tobacco Use: Current Every Day Smoker Alcohol Use: Heavy Substance Use Type: None Previous Surgical History: Yes Type / Date of Surgery: APPENDECTOMY, CHOLECYSTECTOMY, ABDOMINOPLASTY, BREAST AUGMENTATION, Right shoulder surgeryX2 Anesthesia Reactions: No Malignant Hyperthermia: No Significant Family History: Asthma, Heart disease, Cancer, Diabetes, Hypertension Additional Family History: EARLY MENOPAUSE - MOTHER Past Medical History Reviewed: Reviewed - No Changes ROS - Limitations ROS Limitations: No Limitations Constitution: DENIES: Chills, Fever Cardiovascular: DENIES: Chest Pain Respiratory: REPORTS: Denies Resp Symptoms Neurological: REPORTS: Denies Neuro Symptoms Gastrointestinal: REPORTS: Abdominal Pain, Nausea, Vomitting, Diarrhea Endocrine: REPORTS: Denies Symptoms Musculoskeletal: REPORTS: Denies MS Symptoms Genitourinary: REPORTS: Denies Symptoms Eyes: REPORTS: Denies Symptoms ENT: REPORTS: Denies Symptoms Skin: REPORTS: Denies Skin Symptoms Immunologic: POSITIVE: Denies Symptoms Psychiatric: POSITIVE: Denies Psych Symptoms Nausea/Vomiting/Diarrhea Exam - General Appearance General Appearance: POSITIVE: Alert, Cooperative, No Acute Distress, No Evidence of Trauma - HEENT HEENT: POSITIVE: Head Inspection Nml, Eyes Inspection Nml, Pharynx Inspect. Nml - Neck Neck: POSITIVE: Supple, Normal Inspection, Non Tender - Respiratory Respiratory: POSITIVE: No Respiratory Distress, Breath Sounds Normal - Cardiovascular Cardiovascular: POSITIVE: Regular Rate and Rhythm, Heart Sounds Normal - Abdomen Additional Abdominal Details: Patient has mild diffuse tenderness to palpation without rebound or guarding. - Back Back: POSITIVE: Normal Inspection - Skin Skin: POSITIVE: Intact, Warm, Dry - Extremities Extremity: Non-Tender: (All Extremities), Normal ROM: (All Extremities), Normal Inspection: (All Extremities) - Neurological / Psychological Neurological: POSITIVE: 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, Oriented X3 N/V/D Progress - Patient's Progress MDM / ED Course: Anil is a 46-year-old female who presents to the emergency department with nausea and vomiting. Her vital signs are unremarkable and abdominal examination demonstrates some mild diffuse tenderness to palpation. I reviewed patient's prior ER records from the last week. She had laboratory studies which were largely unremarkable. I did recommend IV along with medications for symptoms and normal saline bolus. However patient is declining all other interventions at this time. She did receive intramuscular injection of promethazine with improvement in her symptomatology. I also gave her a GI cocktail which helped with her pain. This appears to be irritation secondary to her alcohol use though I'm unable to exclude other pathology without laboratory or possibly imaging studies. However as above patient is declining further evaluation at this time. She was discharged in stable condition. Patient Care Time - Estimated PCT Patient Care Time (In Minutes): 30 Vital Signs - Recent Vital Signs Vital Signs: Vital Signs (Last 8 hours) Temp Pulse Resp BP Pulse Ox 05/31/17 19:36 98.4 F 88 20 142/81 98 Discharge Clinical Impression: Nausea and vomiting Discharge Disposition: Discharged to Home Condition: Good Prescriptions / Orders: Promethazine HCl 25 mg PO Q6H PRN #15 tab PRN Reason: Nausea Patient Instructions Given at Discharge: Acute Nausea and Vomiting (ED) Additional Instructions: Please stop drinking alcohol. Use nausea medication as needed. Please use omeprazole [id number] for the next 14 days. Follow-up with your primary care provider as needed. Follow Up With: KITTY LAGUNA [Primary Care Provider] -
[2017-05-31] MEDS: Promethazine Tab 25 MG TAB PO SCH ×2 (20:46→20:50)
== END 2017-05-31 20:52 | disposition home or self-care (01) ==
LOC: ER 19:30
DX: R11.2 Nausea with vomiting, unspecified (principal); R10.84 Generalized abdominal pain; F10.20 Alcohol dependence, uncomplicated
CPT/HCPCS: 96372; 99282 ×2; J2550; Q0169

== ENCOUNTER 2017-06-19 10:42 | Inpatient (IN) | payer SELFPAY ==
[2017-06-19] MEDS ORDERED: ONDANSETRON 4 MG/2 ML VIAL IVP ONE (11:05)
[2017-06-19] MEDS ORDERED: Sodium Chloride 0.9% 1,000 ML PRIMARY IV ONE ×2 (11:05→13:55)
[2017-06-19] MEDS ORDERED: KETOROLAC 15 MG/1 ML VIAL IVP ONE (11:05)
--- NOTE | 2017-06-19 11:11 | PDOC ---
Abdomen/Flank HPI - General Chief Complaint: Genitourinary Complaint Stated Complaint: back pain Date Seen by Provider: 06/19/17 Time Seen by Provider: 11:06 Source: POSITIVE: Patient Exam Limitations: POSITIVE: No limitations Nurse's Notes Reviewed & Considered: Yes - History of Present Illness Initial Comments: Patient comes in today complaining of epigastric pain. Patient with history of pancreatitis comes in with diaphoresis, increasing epigastric pain, no vomiting or diarrhea. Patient states she has had no alcohol in 2 weeks. She does have a history of alcoholism. Body Location Affected: REPORTS: Abdomen Timing: REPORTS: Constant Duration: <24 hours Severity: Moderate Quality: REPORTS: "Pain", Tenderness Abdominal Pain Onset Location: REPORTS: Epigastric Abdominal Pain Radiation: REPORTS: Back Context: REPORTS: None Modifying Factors: improves with: Nothing Associated Symptoms: REPORTS: Back pain, Diaphoresis Similar Symptoms Previously: Yes Recent Care Received: REPORTS: Denies Any Prior Injuries Related to Current Complaint?: No - Patient Home Medications Home Medications: Home Medications Amlodipine Besylate 5 mg PO DAILY #30 tablet 11/29/16 Metoprolol Tartrate 25 mg PO BID #60 tab 11/29/16 Cyanocobalamin (Vitamin B-12) [Vitamin B-12] 1,000 mcg PO DAILY #90 tablet 03/12 Escitalopram Oxalate [Lexapro] 1 tab PO DAILY #30 tab 03/21/17 Losartan [Cozaar] 100 mg PO EVERY AM #30 tab 04/26/17 Potassium Chloride [Klor-Con] 20 meq PO DAILY #30 tab 04/26/17 Ondansetron [Zofran Odt] 8 mg PO Q8H #10 tab 05/30/17 Promethazine HCl 25 mg PO Q6H PRN #15 tab 05/31/17 - Patient Allergies Allergies/Adverse Reactions: Allergies Allergy/AdvReac Type Severity Reaction Status Date / Time codeine AdvReac HALLUCINATI Verified 06/19/17 12:52 ONS levofloxacin [From Levaquin] AdvReac HALLUCINATI Verified 06/19/17 12:52 ONS oxycodone AdvReac HALLUCINATI Verified 06/19/17 12:52 ONS Past Medical History - heen HEENT History: Other (please comment) Additional HEENT History: WEARS GLASSES. "BULL'S EYE VISION" Cardiovascular History: Hypertension, Other (please comment) Additional Cardiovasular History: PALPITATIONS Respiratory History: Pneumonia, Snoring, Other (please comment) Additional Respiratory History: chronic tobacco use Gastrointestinal History: GERD, Gallbladder Disease, Pancreatitis, Other ( please comment) Additional Gastrointestinal History: Chronic alcoholism. elevated liver enzymes Genitourinary History: Denies History Endocrine History: Denies History Musculoskeletal History: Joint Pain, Other (please comment) Prosthesis or Implant: Yes (BREAST AUGMENTATION) Additional Musculoskeletal History: Pt fell down several stairs and fractured right shoulder. Pt had surgery on shoulder to repair fracture. X2 Neurological History: Seizures, Other (please comment) Additional Neurological History: SEIZURE WITH DETOX Blood Disorders: Denies History Psychiatric History: Depression, Anxiety Disorders, Substance Abuse Additional Psychiatric History: ALCOHOLISM: CHRONIC AND RECURRENT. PANIC DISORDER. PATIENT RECENTLY ATTEMPTED REHAB History of Sexually Transmitted Diseases: No Female Reproductive History: Denies History LMP: 2012 Obstetrical History: Denies History Cancer History: Denies History In Past Year Been Physically Harmed or Verbally Threatened: No History of MDRO: Yes Type of MDRO: MRSA Other Type of MDRO: TESTED POSITIVE 2014 FOLLOWED BY 2 NEG SWABS History of Other Communicable Diseases: Yes (MONO, VARICELLA) Tobacco Use: Current Every Day Smoker Alcohol Use: Heavy Substance Use Type: None Previous Surgical History: Yes Type / Date of Surgery: APPENDECTOMY, CHOLECYSTECTOMY, ABDOMINOPLASTY, BREAST AUGMENTATION, Right shoulder surgeryX2 Anesthesia Reactions: No Malignant Hyperthermia: No Significant Family History: Asthma, Heart disease, Cancer, Diabetes, Hypertension Additional Family History: EARLY MENOPAUSE - MOTHER ROS - Limitations ROS Limitations: No Limitations Constitution: REPORTS: Diaphoresis Cardiovascular: REPORTS: Denies Cardiac Symptoms Respiratory: REPORTS: Denies Resp Symptoms Neurological: REPORTS: Denies Neuro Symptoms Gastrointestinal: REPORTS: Abdominal Pain, Nausea Endocrine: REPORTS: Denies Symptoms Musculoskeletal: REPORTS: Back Pain Genitourinary: REPORTS: Denies Symptoms Eyes: REPORTS: Denies Symptoms ENT: REPORTS: Denies Symptoms Skin: REPORTS: Denies Skin Symptoms Lympathic: REPORTS: Denies Lympathic Symptoms Immunologic: POSITIVE: Denies Symptoms Psychiatric: POSITIVE: Anxiety Abdominal/Flank Pain PE - General Appearance General Appearance: POSITIVE: Alert, Cooperative, No Evidence of Trauma, Mild Distress - HEENT HEENT: POSITIVE: Head Inspection Nml, Eyes Inspection Nml, Ears Inspection Nml, Nose Inspection Nml, Oral/Dental Inspect. Nml, Pharynx Inspect. Nml, PERRL, EOMI - Neck Neck: POSITIVE: Normal Inspection, No Apparent Injury - Respiratory Respiratory: POSITIVE: No Respiratory Distress, Chest Non-Tender, Rhonchi ( Right mid and lower lung redman) - Cardiovascular Cardiovascular: POSITIVE: Heart Sounds Normal, Tachycardia - Chest Chest: POSITIVE: Non Tender - Abdomen Abdomen: Soft: (All Quadrants), Normal Bowel Sounds: (All Quadrants), Denies Tenderness: (RLQ), (LLQ), No Splenomegaly: (All Quadrants), No Hepatomegaly: ( All Quadrants), No Rebound: (All Quadrants), No Palpable Pulse: (All Quadrants) , No Palpabale Mass: (All Quadrants), Tenderness Noted: (LUQ), (RUQ), Guarding: (LUQ), (RUQ) - Back Back: POSITIVE: Normal Inspection - Skin Skin: POSITIVE: Intact, Normal For Race, Warm, Dry, No Rash - Extremities Extremity: Non-Tender: (All Extremities), Normal ROM: (All Extremities), Normal Inspection: (All Extremities), Pelvis Stable: (All Extremities) - Neurological Neurological: 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, 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 As Tested, Motor Normal, Sensation Normal, 5, 6 Abdomen Progress - Results Reviewed by me Xrays/CTs/US Reviewed by me: Yes Discussed with Radiologist: No Lab Results Reviewed: Yes Lab Results:: Laboratory Results 06/19/17 Range/Units 12:20 WBC 9.24 (4.8-10.8) 10^3/uL RBC 4.45 (4.20-5.40) 10^6/uL Hgb 15.0 (12.0-16.0) g/dL Hct 41.2 (37.0-47.0) % MCV 92.6 (81-99) FL MCH 33.7 H (27-31) PG MCHC 36.4 (33-37) g/dL RDW Std Deviation 45.1 (39-50) fL RDW Coeff of Farzad 13.7 (11.5-14.5) % Plt Count 219 (140-350) 10*3/uL MPV 9.3 (7.4-12.2) FL Immature Gran % (Auto) 0.2 (0-5) % Neut % (Auto) 70.9 (50-80) % Lymph % (Auto) 21.2 (10-50) % Pettis % (Auto) 6.3 (5-15) % Eos % (Auto) 0.6 (0-8) % Baso % (Auto) 0.8 (0-1) % Immature Gran # (Auto) 0.02 10*3/UL Neut # (Auto) 6.55 10*3/UL Lymph # (Auto) 1.96 10*3/uL Pettis # (Auto) 0.58 (0.3-0.8) 10*3/UL Eos # (Auto) 0.06 10*3/UL Baso # (Auto) 0.07 10*3/UL WBC Morphology Comment Normal morphology (NORM) Plt Morphology Comment Normal morphology (NORM) RBC Morph Comment Normal morphology (NORM) Sodium 132 L (135-145) meq/L Potassium 3.0 L (3.8-5.2) meq/L Chloride 94 L (98-112) meq/L Carbon Dioxide 19 L (23-33) meq/L Anion Gap 19 (5-20) BUN 21 (7-22) mg/dL Creatinine 1.9 H (0.50-1.20) mg/dL Estimated GFR 29 (>60 ml/min/1.73m(2)) BUN/Creatinine Ratio 11.05 (6-20) Glucose 184 H (78-110) mg/dL Calculated Osmolality 281.0 (267-292) mOsm/kg Calcium 11.2 H (8.7-10.7) mg/dL Magnesium 1.5 L (1.6-2.4) mg/dL Total Bilirubin 2.4 H (0.3-1.2) mg/dL GGT 806 H (8-78) IU/L AST 36 (8-39) IU/L ALT 48 (9-52) IU/L Alkaline Phosphatase 112 (38-126) IU/L Total Protein 8.4 H (6.1-8.0) g/dL Albumin 5.1 H (3.5-4.8) g/dL Globulin 3.3 (2.50-4.10) g/dL Albumin/Globulin Ratio 1.50 (1.3-2.0) mg/g Amylase 316 H (30-110) U/L Lipase 3159 H* (23-300) IU/L Serum Alcohol < 10 (0-10) mg/dL - Patient's Progress Pain Medication Addressed: POSITIVE: Yes Status: POSITIVE: Improved MDM / ED Course: Patient was examined, an IV started, blood drawn and sent to the lab for studies , radiographic examinations were obtained. Findings: CBC shows a normal white count. Comprehensive metabolic panel shows creatinine elevated at 1.9, potassium and sodium were low. Magnesium is low at 1.5. Amylase is elevated over 350, lipase is elevated over 3100. Gamma GT is elevated over 800. Blood alcohol is less than 10. Assessment: Alcoholic pancreatitis Plan: Admission. - Consult Consulting MD will see pt:: POSITIVE: [facility] [place] Admit Counseled: POSITIVE: Patient, RE: Lab Results, RE: DX Patient Care Time - Estimated PCT Patient Care Time (In Minutes): 30 Vital Signs - Recent Vital Signs Vital Signs: Vital Signs (Last 8 hours) Temp Pulse Resp BP Pulse Ox 06/19/17 10:48 98.6 F 129 H 24 158/78 98 - VS Reviewed Vital Signs Reviewed: Yes Discharge Clinical Impression: EtOH dependence, Abdominal pain, Pancreatitis, Hypomagnesemia Discharge Disposition: Admit to Inpatient Condition: Stable Date Decision to Admit to Inpatient: 06/19/17 Time Decision to Admit to Inpatient: 13:17
[2017-06-19 12:26] LABS: BASOPHILS # (AUTO) 0.07 10*3/UL; BASOPHILS % (AUTO) 0.8 % (0-1); EOSINOPHILS # (AUTO) 0.06 10*3/UL; EOSINOPHILS % (AUTO) 0.6 % (0-8); HEMATOCRIT 41.2 % (37.0-47.0); LYMPHOCYTES # (AUTO) 1.96 10*3/uL; MEAN CORPUSCULAR HEMOGLOBIN 33.7 PG (27-31); MEAN CORPUSCULAR HGB CONC 36.4 g/dL (33-37); MEAN CORPUSCULAR VOLUME 92.6 FL (81-99); MEAN PLATELET VOLUME 9.3 FL (7.4-12.2); MONOCYTES # (AUTO) 0.58 10*3/UL (0.3-0.8); MONOCYTES % (AUTO) 6.3 % (5-15); NEUTROPHILS # (AUTO) 6.55 10*3/UL; NEUTROPHILS % (AUTO) 70.9 % (50-80); RED BLOOD COUNT 4.45 10^6/uL (4.20-5.40)
[2017-06-19 12:27] LABS: PLATELET MORPHOLOGY COMMENT NORMAL MORPHOLOGY (NORM); RBC MORPHOLOGY COMMENT NORMAL MORPHOLOGY (NORM); WBC MORPHOLOGY COMMENT NORMAL MORPHOLOGY (NORM)
[2017-06-19 12:36] LABS: BLOOD UREA NITROGEN 21 mg/dL (7-22); BUN/CREATININE RATIO 11.05 (6-20); CALCIUM 11.2 mg/dL (8.7-10.7); EST GLOMERULAR FILTRATION 29 (>60 ml/min/1.73m(2)); GAMMA GLUTAMYL TRANSPEPTIDASE 806 IU/L (8-78); MAGNESIUM 1.5 mg/dL (1.6-2.4); SERUM ALBUMIN 5.1 g/dL (3.5-4.8)
[2017-06-19] MEDS ORDERED: Magnesium Sulfate 2gm (Premix) 2 GM in Premix 1 BAG IV ONE ×2 (12:43→13:55)
[2017-06-19 13:04] LABS: LIPASE 3159 IU/L (23-300)
[2017-06-19] MEDS ORDERED: Prochlorperazine Edisylate Inj 10mg/2ml vial IVP PRN (13:55)
[2017-06-19] MEDS ORDERED: Diazepam 10 mg Tab (ETOH withdrawal) PO PRN (13:55)
[2017-06-19] MEDS ORDERED: Potassium Chloride 20 mEq 20 MEQ in Premix 1 BAG IV ONE (13:55)
[2017-06-19] MEDS ORDERED: LIDOCAINE W/ SODIUM BICARB 0.5 ML SYR SUBD PRN (13:55)
[2017-06-19] MEDS: Diazepam Inj (ETOH withdrawal)10 MG/2 ML CARPUJECT IVP PRN ×2 (14:23→19:48)
[2017-06-19] MEDS: HYDROmorphone 2 MG/1 ML IVP PRN ×3 (14:24→23:04)
[2017-06-19] MEDS ORDERED: NICOTINE 21 MG /DAY PATCH TRANSDERM ONE (15:13)
--- NOTE | 2017-06-19 15:19 | PDOC ---
History and Physical - History of Present Illness Date and Time of Service: 06/19/2017, 1515 Chief Complaint: Back pain History of Present Illness: This a very well-known 46-year-old female with problems related to acute and chronic pancreatitis with alcohol abuse as well. She has underlying hypertension and she came in complaining of back pain around the T10 region or so that was fairly acute of onset over the last few days. She states that she started drinking again about 3 weeks ago and stopped about a week ago. Back pain was quite severe, associated with some nausea although no vomiting really and the patient had some mild abdominal pain with this as well. She came in for evaluation and she was found to have an elevated lipase. Pain medications are helping her feel a little better. She had some signs of alcohol withdrawal as well with some mild agitation and some tremors bilaterally. She gradually got worse through the last week. Past Medical History Medical History: 1. Hypertension. 2. tobacco abuse. 3. Alcohol abuse, her pattern seems to be more of a binge drinking pattern as of late. 4. Recurrent pancreatitis. 5. Major depressive disorder versus bipolar disorder, one of the reasons patient states she drinks alcohol. 6. Medical noncompliance Surgical History: 1. History of cholecystectomy. 2. Appendectomy. 3. Breast augmentation and tummy tuck. 4. Shoulder surgery Family History: Reviewed an Not Pertinent Pertinent Family History: The patient is adopted but states her biologic mother had diabetes type II. The patient's mother when the patient was 4 years old. Her father is described as healthy. Past Social History: Smokes, drinks alcohol, lives in [place] with her father. Does not currently work. She states this is largely because of her shoulder. She does have a daughter who is about 20 years old. Tobacco Use: Current Every Day Smoker Do you dip or chew tobacco: No Substance Use Type: None Alcohol Use: Heavy Medication / Allergies Home Medications: Home Medications Medication Instructions Recorded Confirmed Type Amlodipine Besylate 5 mg PO DAILY #30 tablet 11/29/16 05/31/17 Clinic Metoprolol Tartrate 25 mg PO BID #60 tab 11/29/16 05/31/17 Clinic Cyanocobalamin (Vitamin B-12) 1,000 mcg PO DAILY #90 tablet 03/12/17 05/31/17 Rx [Vitamin B-12] Escitalopram Oxalate [Lexapro] 1 tab PO DAILY #30 tab 03/21/17 05/31/17 Clinic Losartan [Cozaar] 100 mg PO EVERY AM #30 tab 04/26/17 05/31/17 Rx Potassium Chloride [Klor-Con] 20 meq PO DAILY #30 tab 04/26/17 05/31/17 Rx Ondansetron [Zofran Odt] 8 mg PO Q8H #10 tab 05/30/17 05/31/17 Clinic Promethazine HCl 25 mg PO Q6H PRN #15 tab 05/31/17 Rx Allergies/Adverse Reactions: Allergies Allergy/AdvReac Type Severity Reaction Status Date / Time codeine AdvReac HALLUCINATI Verified 06/19/17 14:09 ONS levofloxacin [From Levaquin] AdvReac HALLUCINATI Verified 06/19/17 14:09 ONS oxycodone AdvReac HALLUCINATI Verified 06/19/17 14:09 ONS Review of Systems - Review of Systems All Systems: Reviewed & No Additional Complaints Except as Stated (I did a 12 point review systems and it was negative other than that discussed in the history of present illness and that noted below.) Exam - Vitals Vital Signs: Vital Signs Temperature 98.2 F Pulse Rate 122 Respiratory Rate 20 Blood Pressure 156/115 Height 5 ft 3 in Weight 122 lb 4 oz - General General Appearance: POSITIVE: No Acute Distress, Cooperative - Head Head Exam: POSITIVE: Normal Inspection, Normocephalic, Atraumatic - Eye Eye Exam: POSITIVE: No Scleral Icterus - ENT ENT Exam: POSITIVE: Mucous Membranes Dry - Neck Neck Exam: POSITIVE: Normal Inspection, No Tenderness, No Thyromegaly - Respiratory Respiratory Exam: POSITIVE: Clear to Auscultation - Bilaterally, Breathing Non Labored, Normal to Percussion and Palpation - Cardiovascular Cardiovascular Exam: POSITIVE: No Murmur, No Clicks, No Gallops, No Rubs, Tachycardia, No JVD - GI/Abdominal GI/Abdominal Exam: POSITIVE: Normal Bowel Sounds, Non Tender, Non Distended, Soft - Rectal Rectal Exam: POSITIVE: Deferred - External Exam: POSITIVE: Deferred Exam: POSITIVE: Deferred - Extremities Extremities Exam: POSITIVE: No Clubbing Present, No Edema Present, No Cyanosis Present Additional Extremities Exam Details: Has an IV in her right foot. Several attempts were made in the emergency room for IV access and it was unsuccessful. - Neurological Neurological Exam: POSITIVE: Alert, Oriented x 3, No Facial Droop, Speech Intact / Clear, Moves All Extremities Equally - Psychiatric Psychiatric Exam: POSITIVE: Anxious - Integumentary Integumentary Exam: POSITIVE: Normal Color, Warm, Dry, Intact - Central Line Examination Central Line Present on Admission: No Results - Labs CBC and BMP: 06/19/17 12:20 06/19/17 12:20 Labs - Last 24 Hours: Laboratory Results 06/19/17 Range/Units 12:20 WBC 9.24 (4.8-10.8) 10^3/uL RBC 4.45 (4.20-5.40) 10^6/uL Hgb 15.0 (12.0-16.0) g/dL Hct 41.2 (37.0-47.0) % MCV 92.6 (81-99) FL MCH 33.7 H (27-31) PG MCHC 36.4 (33-37) g/dL RDW Std Deviation 45.1 (39-50) fL RDW Coeff of Farzad 13.7 (11.5-14.5) % Plt Count 219 (140-350) 10*3/uL MPV 9.3 (7.4-12.2) FL Immature Gran % (Auto) 0.2 (0-5) % Neut % (Auto) 70.9 (50-80) % Lymph % (Auto) 21.2 (10-50) % [place] % (Auto) 6.3 (5-15) % Eos % (Auto) 0.6 (0-8) % Baso % (Auto) 0.8 (0-1) % Immature Gran # (Auto) 0.02 10*3/UL Neut # (Auto) 6.55 10*3/UL Lymph # (Auto) 1.96 10*3/uL [place] # (Auto) 0.58 (0.3-0.8) 10*3/UL Eos # (Auto) 0.06 10*3/UL Baso # (Auto) 0.07 10*3/UL WBC Morphology Comment Normal morphology (NORM) Plt Morphology Comment Normal morphology (NORM) RBC Morph Comment Normal morphology (NORM) Sodium 132 L (135-145) meq/L Potassium 3.0 L (3.8-5.2) meq/L Chloride 94 L (98-112) meq/L Carbon Dioxide 19 L (23-33) meq/L Anion Gap 19 (5-20) BUN 21 (7-22) mg/dL Creatinine 1.9 H (0.50-1.20) mg/dL Estimated GFR 29 (>60 ml/min/1.73m(2)) BUN/Creatinine Ratio 11.05 (6-20) Glucose 184 H (78-110) mg/dL Calculated Osmolality 281.0 (267-292) mOsm/kg Calcium 11.2 H (8.7-10.7) mg/dL Magnesium 1.5 L (1.6-2.4) mg/dL Total Bilirubin 2.4 H (0.3-1.2) mg/dL GGT 806 H (8-78) IU/L AST 36 (8-39) IU/L ALT 48 (9-52) IU/L Alkaline Phosphatase 112 (38-126) IU/L Total Protein 8.4 H (6.1-8.0) g/dL Albumin 5.1 H (3.5-4.8) g/dL Globulin 3.3 (2.50-4.10) g/dL Albumin/Globulin Ratio 1.50 (1.3-2.0) mg/g Amylase 316 H (30-110) U/L Lipase 3159 H* (23-300) IU/L Serum Alcohol < 10 (0-10) mg/dL Assessment and Plan - Patient Problems (1) Pancreatitis, acute Current Visit: Yes Status: Acute Code(s): K85.9 Qualifiers: Pancreatitis type: alcohol induced Acute pancreatitis complication: unspecified Qualified Description: Alcohol-induced acute pancreatitis, unspecified complication status Qualifier Code(s): (K85.20) Alcohol induced acute pancreatitis without necrosis or infection (2) Acute renal failure Current Visit: Yes Status: Acute Qualifiers: Acute renal failure type: unspecified Qualified Description: Acute renal failure, unspecified acute renal failure type (3) Alcohol withdrawal Current Visit: Yes Status: Acute Priority: High (4) Alcohol abuse Current Visit: Yes Status: Acute (5) Hypokalemia Current Visit: Yes Status: Acute (6) Hypomagnesemia syndrome Current Visit: Yes Status: Acute (7) Tobacco abuse Current Visit: Yes Status: Chronic - Assessment / Plan Additional Assessment/Plan Details: Admit the patient. IV fluids, electrolytes to be replaced, IV pain medication. I'll let the patient start with ice chips today but no other by mouth intake. Check lipase and labs tomorrow. I asked that the emergency room hold off from doing a CAT scan. If the patient does not respond to therapy we can look for pseudocyst or other complications, but given the recurrence of this patient's pancreatitis frequently from her alcohol abuse, I don't think that there is any diagnostic mystery here. Patient's IV access is getting more difficult every admission, I did discussed whether or not we can do a central line and consented the patient verbally and if we need to proceed to a central line to administer medications, electrolytes , and do lab draws, we may need to do this. A PICC line could be considered as well. I discussed the above plan with the patient and she agreed. Hold off on COLLEEN inhibitor, especially with renal failure. I think the renal failure is probably more likely prerenal than anything, but we'll check creatinine tomorrow to confirm.
[2017-06-19] MEDS: Sodium Chloride 0.9% 1,000 ML PRIMARY IV SCH (18:55)
[2017-06-19] MEDS: Metoprolol TARTRATE Tab 25 MG TAB PO SCH (21:48)
--- NOTE | 2017-06-19 22:28 | DI ---
XR CXR 2VW PA/LAT,06/19/2017 11:05 AM: Clinical History: Rhonchi. Previous Exam: December 21, 2016 Findings: PA and lateral views of the chest are obtained, and demonstrate interval resolution of airspace disea se. Stable postsurgical changes are seen of the right proximal humerus. There is no evidence of mass. Cardiomediastinum and bony thorax are unremarkable. Impression: Normal chest.
[2017-06-20] MEDS: Sodium Chloride 0.9% 1,000 ML PRIMARY IV SCH ×2 (02:08→09:15)
[2017-06-20] MEDS: HYDROmorphone 2 MG/1 ML IVP PRN ×8 (02:19→21:01)
[2017-06-20 04:41] LABS: BASOPHILS # (AUTO) 0.02 10*3/UL; BASOPHILS % (AUTO) 0.3 % (0-1); EOSINOPHILS # (AUTO) 0.14 10*3/UL; EOSINOPHILS % (AUTO) 1.8 % (0-8); HEMATOCRIT 35.2 % (37.0-47.0); HEMOGLOBIN 12.2 g/dL (12.0-16.0); LYMPHOCYTES # (AUTO) 1.92 10*3/uL; MEAN CORPUSCULAR HEMOGLOBIN 33.6 PG (27-31); MEAN CORPUSCULAR HGB CONC 34.7 g/dL (33-37); MEAN PLATELET VOLUME 9.6 FL (7.4-12.2); MONOCYTES # (AUTO) 0.57 10*3/UL (0.3-0.8); MONOCYTES % (AUTO) 7.4 % (5-15); NEUTROPHILS # (AUTO) 5.04 10*3/UL; NEUTROPHILS % (AUTO) 65.3 % (50-80); PLATELET MORPHOLOGY COMMENT NORMAL MORPHOLOGY (NORM); RBC MORPHOLOGY COMMENT NORMAL MORPHOLOGY (NORM); RED BLOOD COUNT 3.63 10^6/uL (4.20-5.40); WBC MORPHOLOGY COMMENT NORMAL MORPHOLOGY (NORM)
[2017-06-20 04:48] LABS: BUN/CREATININE RATIO 16.42 (6-20); CALCIUM 8.7 mg/dL (8.7-10.7); MAGNESIUM 2.6 mg/dL (1.6-2.4)
[2017-06-20] MEDS: Diazepam Inj (ETOH withdrawal)10 MG/2 ML CARPUJECT IVP PRN (07:39)
[2017-06-20] MEDS: AmLODIPine Tab 5 MG TABLET PO SCH (08:31)
[2017-06-20] MEDS: Metoprolol TARTRATE Tab 25 MG TAB PO SCH ×2 (08:31→21:00)
[2017-06-20] MEDS: NICOTINE 21 MG /DAY PATCH TRANSDERM SCH (08:32)
[2017-06-20] MEDS: POTASSIUM CHLORIDE 20 MEQ TAB PO SCH (08:32)
[2017-06-20] MEDS: ESCITALOPRAM 10 MG TABLET PO SCH (08:32)
[2017-06-20] MEDS: NORMAL SALINE 10 ML SYRINGE FLUSH IVP PRN (08:41)
[2017-06-20] MEDS ORDERED: CYANOCOBALAMIN 1000 MCG PO SCH (09:00)
[2017-06-20] MEDS ORDERED: POTASSIUM CHLORIDE 20 MEQ TAB PO ONE (09:15)
--- NOTE | 2017-06-20 16:34 | PDOC(PROG) ---
Date and Time of Service: 06/20/2017, 1634 Interval History: Patient seen and examined earlier. Still complains of back pain with diffuse radiation into the abdomen and upper back and shoulder region. No nausea or vomiting. No chest pain. No shortness of breath. Objective : Data - Labs CBC and BMP: 06/20/17 04:15 06/20/17 04:15 Labs - Last 24 Hours: Laboratory Results 06/20/17 Range/Units 04:15 WBC 7.71 (4.8-10.8) 10^3/uL RBC 3.63 L (4.20-5.40) 10^6/uL Hgb 12.2 (12.0-16.0) g/dL Hct 35.2 L (37.0-47.0) % MCV 97.0 (81-99) FL MCH 33.6 H (27-31) PG MCHC 34.7 (33-37) g/dL RDW Std Deviation 46.8 (39-50) fL RDW Coeff of Farzad 13.8 (11.5-14.5) % Plt Count 145 (140-350) 10*3/uL MPV 9.6 (7.4-12.2) FL Immature Gran % (Auto) 0.3 (0-5) % Neut % (Auto) 65.3 (50-80) % Lymph % (Auto) 24.9 (10-50) % [place] % (Auto) 7.4 (5-15) % Eos % (Auto) 1.8 (0-8) % Baso % (Auto) 0.3 (0-1) % Immature Gran # (Auto) 0.02 10*3/UL Neut # (Auto) 5.04 10*3/UL Lymph # (Auto) 1.92 10*3/uL [place] # (Auto) 0.57 (0.3-0.8) 10*3/UL Eos # (Auto) 0.14 10*3/UL Baso # (Auto) 0.02 10*3/UL WBC Morphology Comment Normal morphology (NORM) Plt Morphology Comment Normal morphology (NORM) RBC Morph Comment Normal morphology (NORM) Sodium 134 L (135-145) meq/L Potassium 3.4 L (3.8-5.2) meq/L Chloride 101 (98-112) meq/L Carbon Dioxide 20 L (23-33) meq/L Anion Gap 13 (5-20) BUN 23 H (7-22) mg/dL Creatinine 1.4 H (0.50-1.20) mg/dL Estimated GFR 41 (>60 ml/min/1.73m(2)) BUN/Creatinine Ratio 16.42 (6-20) Glucose 96 (78-110) mg/dL Calculated Osmolality 281.0 (267-292) mOsm/kg Calcium 8.7 (8.7-10.7) mg/dL Magnesium 2.6 H (1.6-2.4) mg/dL Lipase 3124 H* (23-300) IU/L Objective : Exam - General General Appearance: No Acute Distress, Cooperative Additional General Exam Details: Vital Signs - Last Taken Temperature 97.8 F 06/20/17 13:32 Pulse Rate 81 06/20/17 15:00 Respiratory Rate 18 06/20/17 13:32 Blood Pressure 136/91 06/20/17 13:32 Pulse Ox 90 06/20/17 13:00 - Eye Eye Exam: No Scleral Icterus - ENT ENT Exam: Mucous Membranes Moist - Respiratory Respiratory Exam: Clear to Auscultation - Bilaterally, Breathing Non Labored - Cardiovascular Cardiovascular Exam: RRR, No Murmur, No Clicks, No Gallops, No Rubs, No JVD - GI/Abdominal GI/Abdominal Exam: Normal Bowel Sounds, Non Distended, Soft Additional GI/Abdominal Exam Details: Tender to palpation, epigastric area - Extremities Extremities Exam: No Clubbing Present, No Edema Present, No Cyanosis Present - Neurological Neurological Exam: Alert, Oriented x 3, No Facial Droop, Speech Intact / Clear, Moves All Extremities Equally - Psychiatric Psychiatric Exam: Anxious Assessment and Plan - Patient Problems (1) Pancreatitis, acute Current Visit: Yes Status: Acute Code(s): K85.9 Qualifiers: Pancreatitis type: alcohol induced Acute pancreatitis complication: unspecified Qualified Description: Alcohol-induced acute pancreatitis, unspecified complication status Qualifier Code(s): (K85.20) Alcohol induced acute pancreatitis without necrosis or infection (2) Acute renal failure Current Visit: Yes Status: Acute Qualifiers: Acute renal failure type: unspecified Qualified Description: Acute renal failure, unspecified acute renal failure type Qualifier Code(s): ( N17.9) Acute kidney failure, unspecified (3) Alcohol withdrawal Current Visit: Yes Status: Acute Priority: High Qualifiers: Complication of substance-induced condition: uncomplicated Qualified Description: Alcohol withdrawal syndrome without complication Qualifier Code(s): (F10.230) Alcohol dependence with withdrawal, uncomplicated (4) Alcohol abuse Current Visit: Yes Status: Acute (5) Hypokalemia Current Visit: Yes Status: Acute (6) Hypomagnesemia syndrome Current Visit: Yes Status: Resolved (7) Tobacco abuse Current Visit: Yes Status: Chronic - Assessment / Plan Additional Assessment/Plan Details: Continue IV fluids, electrolyte replacement, and CIWA protocol. Continue Dilaudid for pain and increased dose and frequency. Check labs tomorrow. If creatinine is improved, I may consider doing a CT scan tomorrow to look at this pancreas a little bit more in detail.
[2017-06-21] MEDS: Sodium Chloride 0.9% 1,000 ML PRIMARY IV SCH ×5 (00:04→21:50)
[2017-06-21] MEDS: HYDROmorphone 2 MG/1 ML IVP PRN ×7 (00:05→20:25)
[2017-06-21] MEDS: Diazepam Inj (ETOH withdrawal)10 MG/2 ML CARPUJECT IVP PRN (04:34)
[2017-06-21 04:57] LABS: BASOPHILS # (AUTO) 0.02 10*3/UL; BASOPHILS % (AUTO) 0.2 % (0-1); EOSINOPHILS # (AUTO) 0.07 10*3/UL; EOSINOPHILS % (AUTO) 0.6 % (0-8); HEMATOCRIT 34.8 % (37.0-47.0); HEMOGLOBIN 11.3 g/dL (12.0-16.0); LYMPHOCYTES # (AUTO) 1.11 10*3/uL; MEAN CORPUSCULAR HEMOGLOBIN 33.2 PG (27-31); MEAN CORPUSCULAR HGB CONC 32.5 g/dL (33-37); MEAN CORPUSCULAR VOLUME 102.4 FL (81-99); MEAN PLATELET VOLUME 9.8 FL (7.4-12.2); MONOCYTES # (AUTO) 0.43 10*3/UL (0.3-0.8); MONOCYTES % (AUTO) 3.8 % (5-15); NEUTROPHILS # (AUTO) 9.57 10*3/UL; NEUTROPHILS % (AUTO) 85.2 % (50-80)
[2017-06-21 05:23] LABS: PLATELET MORPHOLOGY COMMENT NORMAL MORPHOLOGY (NORM); RBC MORPHOLOGY COMMENT NORMAL MORPHOLOGY (NORM); WBC MORPHOLOGY COMMENT NORMAL MORPHOLOGY (NORM)
[2017-06-21 05:25] LABS: BLOOD UREA NITROGEN 18 mg/dL (7-22); CALCIUM 8.5 mg/dL (8.7-10.7); EST GLOMERULAR FILTRATION > 60 (>60 ml/min/1.73m(2)); LIPASE 633 IU/L (23-300); MAGNESIUM 1.6 mg/dL (1.6-2.4)
[2017-06-21] MEDS: NICOTINE 21 MG /DAY PATCH TRANSDERM SCH (08:56)
[2017-06-21] MEDS: Metoprolol TARTRATE Tab 25 MG TAB PO SCH ×2 (08:56→20:26)
[2017-06-21] MEDS: AmLODIPine Tab 5 MG TABLET PO SCH (08:56)
[2017-06-21] MEDS: ESCITALOPRAM 10 MG TABLET PO SCH (08:56)
[2017-06-21] MEDS: POTASSIUM CHLORIDE 20 MEQ TAB PO SCH (08:56)
[2017-06-21] MEDS: ONDANSETRON 4 MG/2 ML VIAL IVP PRN ×2 (09:50→20:26)
[2017-06-21] MEDS: NORMAL SALINE 10 ML SYRINGE FLUSH IVP PRN (15:21)
--- NOTE | 2017-06-21 18:05 | PDOC(PROG) ---
Date and Time of Service: 06/21/2017, 1758 Interval History: No chest pain, no shortness of breath. No nausea or vomiting. Patient has continued back pain, but think she is over sedated. She wants to try less pain medications. Objective : Data - Labs CBC and BMP: 06/21/17 03:58 06/21/17 03:58 Labs - Last 24 Hours: Laboratory Results 06/21/17 Range/Units 03:58 WBC 11.23 H (4.8-10.8) 10^3/uL RBC 3.40 L (4.20-5.40) 10^6/uL Hgb 11.3 L (12.0-16.0) g/dL Hct 34.8 L (37.0-47.0) % MCV 102.4 H (81-99) FL MCH 33.2 H (27-31) PG MCHC 32.5 L (33-37) g/dL RDW Std Deviation 50.6 H (39-50) fL RDW Coeff of Farzad 13.9 (11.5-14.5) % Plt Count 161 (140-350) 10*3/uL MPV 9.8 (7.4-12.2) FL Immature Gran % (Auto) 0.3 (0-5) % Neut % (Auto) 85.2 H (50-80) % Lymph % (Auto) 9.9 L (10-50) % [place] % (Auto) 3.8 L (5-15) % Eos % (Auto) 0.6 (0-8) % Baso % (Auto) 0.2 (0-1) % Immature Gran # (Auto) 0.03 10*3/UL Neut # (Auto) 9.57 10*3/UL Lymph # (Auto) 1.11 10*3/uL [place] # (Auto) 0.43 (0.3-0.8) 10*3/UL Eos # (Auto) 0.07 10*3/UL Baso # (Auto) 0.02 10*3/UL WBC Morphology Comment Normal morphology (NORM) Plt Morphology Comment Normal morphology (NORM) RBC Morph Comment Normal morphology (NORM) Sodium 135 (135-145) meq/L Potassium 5.0 D (3.8-5.2) meq/L Chloride 106 (98-112) meq/L Carbon Dioxide 16 L (23-33) meq/L Anion Gap 13 (5-20) BUN 18 (7-22) mg/dL Creatinine 0.8 (0.50-1.20) mg/dL Estimated GFR > 60 (>60 ml/min/1.73m(2)) BUN/Creatinine Ratio 22.50 H (6-20) Glucose 56 L (78-110) mg/dL Calculated Osmolality 279.0 (267-292) mOsm/kg Calcium 8.5 L (8.7-10.7) mg/dL Magnesium 1.6 (1.6-2.4) mg/dL Total Bilirubin 1.0 D (0.3-1.2) mg/dL AST 47 H (8-39) IU/L ALT 31 (9-52) IU/L Alkaline Phosphatase 107 (38-126) IU/L Total Protein 6.6 (6.1-8.0) g/dL Albumin 4.0 (3.5-4.8) g/dL Globulin 2.6 (2.50-4.10) g/dL Albumin/Globulin Ratio 1.50 (1.3-2.0) mg/g Lipase 633 H (23-300) IU/L - Imaging X-Ray Status: Image Reviewed by Me (Chest x-ray appears negative. I am waiting for the official read on the abdominal pelvis CT scan, but I wonder about pancreatitis looking at this image.) Objective : Exam - General General Appearance: No Acute Distress, Cooperative Additional General Exam Details: Vital Signs - Last Taken Temperature 97.4 F 06/21/17 15:53 Pulse Rate 87 06/21/17 15:53 Respiratory Rate 18 06/21/17 15:53 Blood Pressure 104/63 06/21/17 15:53 Pulse Ox 95 06/21/17 15:53 - Eye Eye Exam: No Scleral Icterus - ENT ENT Exam: Mucous Membranes Moist - Respiratory Respiratory Exam: Clear to Auscultation - Bilaterally, Breathing Non Labored - Cardiovascular Cardiovascular Exam: RRR, No Murmur, No Clicks, No Gallops, No Rubs, No JVD - GI/Abdominal GI/Abdominal Exam: Normal Bowel Sounds, Non Distended, Soft Additional GI/Abdominal Exam Details: Less palpable tenderness today. - Extremities Extremities Exam: No Clubbing Present, No Edema Present, No Cyanosis Present - Neurological Neurological Exam: Alert, Oriented x 3, No Facial Droop, Speech Intact / Clear, Moves All Extremities Equally Assessment and Plan - Patient Problems (1) Pancreatitis, acute Current Visit: Yes Status: Acute Code(s): K85.9 Qualifiers: Pancreatitis type: alcohol induced Acute pancreatitis complication: unspecified Qualified Description: Alcohol-induced acute pancreatitis, unspecified complication status Qualifier Code(s): (K85.20) Alcohol induced acute pancreatitis without necrosis or infection (2) Acute renal failure Current Visit: Yes Status: Acute Qualifiers: Acute renal failure type: unspecified Qualified Description: Acute renal failure, unspecified acute renal failure type Qualifier Code(s): ( N17.9) Acute kidney failure, unspecified (3) Alcohol withdrawal Current Visit: Yes Status: Acute Priority: High Qualifiers: Complication of substance-induced condition: uncomplicated Qualified Description: Alcohol withdrawal syndrome without complication Qualifier Code(s): (F10.230) Alcohol dependence with withdrawal, uncomplicated (4) Alcohol abuse Current Visit: Yes Status: Acute (5) Hypokalemia Current Visit: Yes Status: Acute (6) Hypomagnesemia syndrome Current Visit: Yes Status: Resolved (7) Tobacco abuse Current Visit: Yes Status: Chronic - Assessment / Plan Additional Assessment/Plan Details: Overall, pancreatitis appears better. I think alcohol withdrawal is better as well and I'll stop CIWA protocol. Check CT scan of abdomen and pelvis when results come back. I wonder about a potential pseudocyst and pancreatic inflammation. Continue pain medications but he self. Advance diet to clear liquid diet. Check labs tomorrow.
--- NOTE | 2017-06-21 22:57 | DI ---
HISTORY: Pancreatitis and back pain. Patient is an inpatient. PREVIOUS EXAM: April 25, 2017. TECHNIQUE: Multiple helically acquired CT images are obtained through the abdomen and pelvis with IV contrast. FINDINGS: CT images demonstrate some new airspace disease within the lung bases bilaterally predomin antly involving the right middle lobe and the lingula. A few peripheral vascular calcifications are seen. Diffuse fatty infiltration of liver is noted. Patient is status post cholecystectomy. The urinary bladder is unremarkable. Peripheral vascular calcifications are seen. A few subcentimeter hypodensities are noted within the kidneys too small to characterize. There is stable renal parenchymal stone within the superior pole left kidney. There is also a calcifi ed density adjacent to the right lobe of the liver. There are a few small parenchymal calcifications within the pancreas and some prominence of the pancr eatic duct however, this is not above normal limits, and is unchanged from the prior exam. Urinary bladder is unremarkable. There are several shotty lymph nodes in the celiac and periportal re gion. The anterior abdominal wall and subcutaneous fat is unremarkable. IMPRESSION: 1. Diffuse fatty infiltration of the liver. 2. No acute intra-abdominal pathology.
--- NOTE | 2017-06-21 23:01 | DI ---
HISTORY: Hypoxia. Patient is an inpatient. PREVIOUS EXAM: June 19, 2017. TECHNIQUE: A single frontal radiograph of the chest is obtained. FINDINGS: Imaging of the chest demonstrates increased densities within both lungs to include within the pulmonary jos. There is cardiomegaly. Overlying EKG leads are seen. IMPRESSION: 1. Increased interstitial markings and increased density in a perihilar distribution, most consisten t with congestive heart failure.
[2017-06-22] MEDS: HYDROmorphone 2 MG/1 ML IVP PRN ×4 (00:37→11:42)
[2017-06-22] MEDS: ACETAMINOPHEN 325 MG TABLET PO PRN (00:47)
[2017-06-22] MEDS ORDERED: DIAZEPAM 10 MG/2 ML (5 MG/1 ML) CARPUJECT IVP PRN (01:02)
[2017-06-22] MEDS: ONDANSETRON 4 MG/2 ML VIAL IVP PRN (04:35)
[2017-06-22 06:07] LABS: BLOOD UREA NITROGEN 8 mg/dL (7-22); BUN/CREATININE RATIO 13.33 (6-20); CALCIUM 8.4 mg/dL (8.7-10.7); EST GLOMERULAR FILTRATION > 60 (>60 ml/min/1.73m(2)); LIPASE 161 IU/L (23-300); SERUM ALBUMIN 3.2 g/dL (3.5-4.8)
[2017-06-22] MEDS: NICOTINE 21 MG /DAY PATCH TRANSDERM SCH (09:36)
[2017-06-22] MEDS: Metoprolol TARTRATE Tab 25 MG TAB PO SCH ×2 (09:37→20:30)
[2017-06-22] MEDS: POTASSIUM CHLORIDE 20 MEQ TAB PO SCH (09:37)
[2017-06-22] MEDS: AmLODIPine Tab 5 MG TABLET PO SCH (09:37)
[2017-06-22] MEDS: ESCITALOPRAM 10 MG TABLET PO SCH (09:38)
[2017-06-22] MEDS: Sodium Chloride 0.9% 1,000 ML PRIMARY IV SCH (11:27)
[2017-06-22] MEDS ORDERED: POTASSIUM CHLORIDE 20 MEQ TAB PO ONE ×2 (12:36→17:14)
[2017-06-22] MEDS ORDERED: FUROSEMIDE 10 MG/1 ML - 4 ML IV ONE (13:05)
[2017-06-22] MEDS: traMADol 50 MG TABLET PO PRN ×2 (17:03→23:20)
--- NOTE | 2017-06-22 17:03 | PDOC(PROG) ---
Date and Time of Service: 06/22/2017, 1704 Interval History: Feels more short of breath and has some chest discomfort today. Chest x-ray, second one done on this admission, shows increased pulmonary vascular congestion and fluid overload. We gave Lasix this morning and she's been urinating throughout the day and has a lot of fluid out. I reviewed her record and we did do an echocardiogram when she had ARDS back in November 2016 and she had diastolic dysfunction, grade 1. I think that is the cause of pulmonary edema for her. No nausea or vomiting. Still complaining of back pain. Objective : Data - Labs CBC and BMP: 06/21/17 03:58 06/22/17 04:48 Labs - Last 24 Hours: Laboratory Results 06/22/17 Range/Units 04:48 Sodium 133 L (135-145) meq/L Potassium 3.8 D (3.8-5.2) meq/L Chloride 107 (98-112) meq/L Carbon Dioxide 20 L (23-33) meq/L Anion Gap 6 (5-20) BUN 8 (7-22) mg/dL Creatinine 0.6 (0.50-1.20) mg/dL Estimated GFR > 60 (>60 ml/min/1.73m(2)) BUN/Creatinine Ratio 13.33 (6-20) Glucose 104 (78-110) mg/dL Calculated Osmolality 273.0 (267-292) mOsm/kg Calcium 8.4 L (8.7-10.7) mg/dL Total Bilirubin 1.8 H D (0.3-1.2) mg/dL AST 38 (8-39) IU/L ALT 29 (9-52) IU/L Alkaline Phosphatase 108 (38-126) IU/L NT-Pro-B Natriuret Pep 2260 H (0-125) PG/ML Total Protein 5.6 L (6.1-8.0) g/dL Albumin 3.2 L (3.5-4.8) g/dL Globulin 2.4 L (2.50-4.10) g/dL Albumin/Globulin Ratio 1.30 (1.3-2.0) mg/g Lipase 161 (23-300) IU/L - Imaging X-Ray Status: Image Reviewed by Me (Chest x-ray shows evidence of pulmonary edema or pulmonary vascular congestion.) Objective : Exam - General General Appearance: No Acute Distress, Cooperative Additional General Exam Details: Vital Signs - Last Taken Temperature 98.5 F 06/22/17 13:00 Pulse Rate 105 H 06/22/17 13:00 Respiratory Rate 20 06/22/17 13:00 Blood Pressure 125/104 06/22/17 13:00 Pulse Ox 90 06/22/17 13:00 - Head Head Exam: Normal Inspection, Normocephalic, Atraumatic - Eye Eye Exam: No Scleral Icterus - ENT ENT Exam: Mucous Membranes Moist - Respiratory Respiratory Exam: Clear to Auscultation - Bilaterally, Breathing Non Labored Additional Respiratory Exam Details: Breath sounds have improved throughout the day on Lasix. - Cardiovascular Cardiovascular Exam: RRR, No Murmur, No Clicks, No Gallops, No Rubs, No JVD - GI/Abdominal GI/Abdominal Exam: Normal Bowel Sounds, Non Tender, Non Distended, Soft - Extremities Extremities Exam: No Clubbing Present, No Edema Present, No Cyanosis Present - Neurological Neurological Exam: Alert, Oriented x 3, Normal Gait, No Facial Droop, Speech Intact / Clear, Moves All Extremities Equally - Psychiatric Psychiatric Exam: Normal Affect, Normal Mood Assessment and Plan - Patient Problems (1) Pulmonary edema Current Visit: Yes Status: Acute Qualifiers: Chronicity: acute Qualified Description: Acute pulmonary edema Qualifier Code(s): (J81.0) Acute pulmonary edema (2) Pancreatitis, acute Current Visit: Yes Status: Acute Code(s): K85.9 Qualifiers: Pancreatitis type: alcohol induced Acute pancreatitis complication: unspecified Qualified Description: Alcohol-induced acute pancreatitis, unspecified complication status Qualifier Code(s): (K85.20) Alcohol induced acute pancreatitis without necrosis or infection (3) Acute renal failure Current Visit: Yes Status: Acute Qualifiers: Acute renal failure type: unspecified Qualified Description: Acute renal failure, unspecified acute renal failure type Qualifier Code(s): ( N17.9) Acute kidney failure, unspecified (4) Alcohol withdrawal Current Visit: Yes Status: Acute Priority: High Qualifiers: Complication of substance-induced condition: uncomplicated Qualified Description: Alcohol withdrawal syndrome without complication Qualifier Code(s): (F10.230) Alcohol dependence with withdrawal, uncomplicated (5) Alcohol abuse Current Visit: Yes Status: Acute (6) Hypokalemia Current Visit: Yes Status: Acute (7) Tobacco abuse Current Visit: Yes Status: Chronic - Assessment / Plan Additional Assessment/Plan Details: Overall, pancreatitis on the acute side is better. She does have some evidence of calcifications that might suggest developing chronic pancreatitis. I discussed that with the patient. Out of alcohol withdrawal. The patient does not tolerate every 2 hours Dilaudid, but every 4 hours Dilaudid does not seem to control pain very well. We think that every 3 hours dosing intervals may make the most sense in these acute episodes of pancreatitis. She is in pulmonary edema, I think from fluids, and diastolic dysfunction. Diuresing now with Lasix and may repeat the dose one more time tonight was some extra potassium. Check electrolytes tomorrow. If all goes well, improved diuresis, BNP drops, patient could conceivably go home tomorrow.
[2017-06-22] MEDS ORDERED: FUROSEMIDE 10 MG/1 ML - 10 ML IVP ONE (17:14)
[2017-06-22] MEDS ORDERED: POTASSIUM CHLORIDE 20 MEQ TAB PO SCH (17:15)
[2017-06-22] MEDS ORDERED: Acetaminophen 1000mg Inj 1,000 MG in Premix 1 BAG IV ONE (17:31)
[2017-06-22] MEDS: Clindamycin 900mg (Premix) 900 MG in Dextrose 1 BAG IV SCH (18:02)
[2017-06-22 18:11] LABS: BILIRUBIN,URINE NEGATIVE (NEG); CLARITY,URINE CLEAR (CLEAR); COLOR,URINE YELLOW; GLUCOSE, URINE (UA) 100 mg/dL (NEG); NITRATE,URINE NEGATIVE (NEG); OCCULT BLOOD,URINE NEGATIVE (NEG); PH,URINE 6.5 (5.0-8.5); PROTEIN,URINE NEGATIVE (NEG)
[2017-06-22 18:33] LABS: URINE SAMPLE TYPE CLEAN CATCH URINE
[2017-06-23] MEDS: Clindamycin 900mg (Premix) 900 MG in Dextrose 1 BAG IV SCH ×3 (01:56→17:29)
[2017-06-23] MEDS: traMADol 50 MG TABLET PO PRN ×4 (04:57→21:11)
[2017-06-23 05:47] LABS: BLOOD UREA NITROGEN 5 mg/dL (7-22); BUN/CREATININE RATIO 7.14 (6-20); CALCIUM 8.8 mg/dL (8.7-10.7); EST GLOMERULAR FILTRATION > 60 (>60 ml/min/1.73m(2))
[2017-06-23] MEDS ORDERED: FUROSEMIDE 10 MG/1 ML - 4 ML IV ONE (07:00)
[2017-06-23] MEDS: NICOTINE 21 MG /DAY PATCH TRANSDERM SCH (08:00)
[2017-06-23] MEDS: Metoprolol TARTRATE Tab 25 MG TAB PO SCH ×2 (08:01→21:11)
[2017-06-23] MEDS: ESCITALOPRAM 10 MG TABLET PO SCH (08:01)
[2017-06-23] MEDS: AmLODIPine Tab 5 MG TABLET PO SCH (08:01)
[2017-06-23] MEDS ORDERED: IBUPROFEN 400 MG TABLET PO PRN (08:30)
--- NOTE | 2017-06-23 08:35 | PDOC(PROG) ---
Date and Time of Service: 06/23/2017 8:32 AM Interval History: Subjective Patient complaining from cough, shortness of breath and pain in the posterior back. No abdominal pain. She is tolerating diet. Nothing is coming up with the cough. She did have some fever yesterday. Objective : Data - Labs CBC and BMP: 06/21/17 03:58 06/23/17 04:47 Labs - Last 24 Hours: Laboratory Results 06/22/17 06/23/17 Range/Units 18:03 04:47 Sodium 135 (135-145) meq/L Potassium 3.0 L (3.8-5.2) meq/L Chloride 99 (98-112) meq/L Carbon Dioxide 26 (23-33) meq/L Anion Gap 10 (5-20) BUN 5 L (7-22) mg/dL Creatinine 0.7 (0.50-1.20) mg/dL Estimated GFR > 60 (>60 ml/min/1.73m(2)) BUN/Creatinine Ratio 7.14 (6-20) Glucose 128 H (78-110) mg/dL Calculated Osmolality 278.0 (267-292) mOsm/kg Calcium 8.8 (8.7-10.7) mg/dL NT-Pro-B Natriuret Pep 1210 H (0-125) PG/ML Ur Collection Type Clean catch urine Urine Color Yellow Urine Clarity Clear (CLEAR) Urine pH 6.5 (5.0-8.5) Ur Specific [place] 1.010 (1.005-1.030) Urine Protein Negative (NEG) mg/dl Urine Glucose (UA) 100 (NEG) mg/dL Urine Ketones Negative (NEG) Urine Occult Blood Negative (NEG) Urine Nitrate Negative (NEG) Urine Bilirubin Negative (NEG) Urine Urobilinogen 4.0 (0.2) EU/dL Ur Leukocyte Esterase Negative (NEG) Ur Culture Indicated? Culture not set Objective : Exam - General General Appearance: No Acute Distress, Cooperative - Head Head Exam: Normal Inspection, Atraumatic - Eye Eye Exam: Normal Appearance - ENT ENT Exam: Normal Exam - Neck Neck Exam: Normal Inspection - Respiratory Respiratory Exam: Clear to Auscultation - Bilaterally - Cardiovascular Cardiovascular Exam: RRR - GI/Abdominal GI/Abdominal Exam: Normal Bowel Sounds, Non Tender, Non Distended, Soft - Rectal Rectal Exam: Deferred - External Exam: Deferred - Extremities Extremities Exam: Normal Inspection - Back Back Exam: Normal Inspection - Neurological Neurological Exam: Alert, Oriented x 3, No Facial Droop, Speech Intact / Clear - Psychiatric Psychiatric Exam: Normal Affect - Integumentary Integumentary Exam: Normal Color Assessment and Plan - Patient Problems (1) Pancreatitis Current Visit: Yes Status: Acute Comment: This is improving. She is tolerating diet. Complaining from back pain will increase the dosage of the tramadol. Wrote for Motrin. (2) Acute lung injury Current Visit: No Status: Acute Comment: Has infiltrate on the chest x-ray yesterday, she was covered with antibiotics. Continue. She was covered with clindamycin for possibility of aspiration. We'll watch her another day repeat her labs tomorrow. This may be though as I told her an inflammatory response from the pancreatitis. She was giving Lasix also and that seemed to help also. I think we'll hold off for today. Qualifiers: Encounter type: initial encounter Qualified Description: Acute lung injury, initial encounter Qualifier Code(s): (S27.309A) Unspecified injury of lung, unspecified, initial encounter (3) Hypokalemia Current Visit: Yes Status: Acute Comment: Continue replacement. (4) Hypertension Current Visit: No Status: Acute Comment: Same medications Qualifiers: Hypertension type: essential hypertension Qualified Description: Essential hypertension Qualifier Code(s): (I10) Essential (primary) hypertension
--- NOTE | 2017-06-23 09:38 | DI ---
XR CXR 1VW,06/23/2017 7:00 AM: Clinical History: Pulmonary edema and diastolic dysfunction. Previous Exam: June 21, 2017 Findings: A single frontal radiograph of the chest is obtained, and demonstrates stable cardiomegaly. There is increased interstitial markings which have improved since the prior exam. Stable postsurgica l changes of the right proximal humerus. Impression: Cardiomegaly and pulmonary edema improved since the prior exam.
[2017-06-23] MEDS: NORMAL SALINE 10 ML SYRINGE FLUSH IVP PRN ×2 (09:45→17:30)
[2017-06-23] MEDS: ACETAMINOPHEN 325 MG TABLET PO PRN ×2 (13:06→19:15)
[2017-06-23] MEDS: POTASSIUM CHLORIDE 20 MEQ TAB PO SCH ×2 (15:03→21:11)
[2017-06-24] MEDS: Clindamycin 900mg (Premix) 900 MG in Dextrose 1 BAG IV SCH ×2 (00:57→09:27)
[2017-06-24] MEDS: ACETAMINOPHEN 325 MG TABLET PO PRN ×2 (00:57→09:27)
[2017-06-24] MEDS: traMADol 50 MG TABLET PO PRN ×2 (02:44→09:26)
[2017-06-24 06:21] LABS: BASOPHILS # (AUTO) 0.04 10*3/UL; BASOPHILS % (AUTO) 0.7 % (0-1); EOSINOPHILS # (AUTO) 0.32 10*3/UL; EOSINOPHILS % (AUTO) 5.4 % (0-8); HEMATOCRIT 30.1 % (37.0-47.0); HEMOGLOBIN 10.2 g/dL (12.0-16.0); LYMPHOCYTES # (AUTO) 1.54 10*3/uL; MEAN CORPUSCULAR HEMOGLOBIN 33.6 PG (27-31); MEAN CORPUSCULAR HGB CONC 33.9 g/dL (33-37); MEAN PLATELET VOLUME 10.6 FL (7.4-12.2); MONOCYTES # (AUTO) 0.74 10*3/UL (0.3-0.8); MONOCYTES % (AUTO) 12.5 % (5-15); NEUTROPHILS # (AUTO) 3.23 10*3/UL; NEUTROPHILS % (AUTO) 54.3 % (50-80); RED BLOOD COUNT 3.04 10^6/uL (4.20-5.40)
[2017-06-24 06:55] LABS: BLOOD UREA NITROGEN 7 mg/dL (7-22); CALCIUM 8.2 mg/dL (8.7-10.7); EST GLOMERULAR FILTRATION > 60 (>60 ml/min/1.73m(2)); SERUM ALBUMIN 3.6 g/dL (3.5-4.8)
[2017-06-24 07:15] LABS: PLATELET MORPHOLOGY COMMENT NORMAL MORPHOLOGY (NORM); RBC MORPHOLOGY COMMENT NORMAL MORPHOLOGY (NORM); WBC MORPHOLOGY COMMENT NORMAL MORPHOLOGY (NORM)
[2017-06-24 08:36] VITALS: RESP 18; TEMP 97.4
[2017-06-24] MEDS: AmLODIPine Tab 5 MG TABLET PO SCH (08:37)
[2017-06-24] MEDS: ESCITALOPRAM 10 MG TABLET PO SCH (08:37)
[2017-06-24] MEDS: NICOTINE 21 MG /DAY PATCH TRANSDERM SCH (08:37)
[2017-06-24] MEDS: Metoprolol TARTRATE Tab 25 MG TAB PO SCH (08:38)
[2017-06-24] MEDS: POTASSIUM CHLORIDE 20 MEQ TAB PO SCH (08:38)
--- NOTE | 2017-06-24 11:58 | DCSUMMARY ---
Hospitalization Summary Admit Date: 06/19/17 Discharge Date: 06/24/17 Hospital Course: Discharge diagnoses 1. Alcohol-induced pancreatitis 2. Hypertension 3. Depression versus bipolar disorder 4. Bilateral lung infiltrate either secondary to pancreatitis or secondary to overload versus aspiration Hospital course This is a 46 years old female with multiple admissions to the hospital secondary to problems related to acute pancreatitis or alcohol intoxication also history of hypertension who came into the hospital complaining from pain in the back that started few days before admission. She did mention that she was drinking 3 weeks ago and stopped about a week before admission. There was some nausea and mild abdominal pain. Lipase was elevated more than 3000 and she was admitted to the hospital was treated with pain medication and IV fluids. She did have a CT of the abdomen which showed fatty infiltration of the liver and few small parenchymal calcification within the pancreas some prominence of the pancreatic duct however this is not above normal limits. And unchanged from previous examination. 2 days after admission she started to develop cough and shortness of breath and a chest x-ray did show bilateral infiltrates and raised the possibility of volume overload she was given Lasix, however she developed fever so she was started on clindamycin in case that she has an aspiration pneumonia. I saw her later on during her hospital stay she was making improvement we did repeat the chest x-ray which improvement. On the day of discharge she was doing much better breathing improved the cough improved her lung examination was unremarkable E thought that she could be discharged home and follow-up With her primary. I did reemphasize to her not to drink. Her pain seemed to be controlled with tramadol so we discharge her on tramadol. The reason for the bilateral infiltrate is not clear this may be secondary to the pancreatitis itself, versus aspiration, versus fluid overload. I think she probably need to have a repeat chest x-ray done to ensure resolution. She may need to have a stress test done at one point in time. She had this happen to her before at that time I did an echocardiogram which showed grade 1 diastolic dysfunction, at that time I thought it was mainly due to the pancreatitis itself. But I think maybe since this is recurring she may need to have more testing done and this could be done later on as an outpatient. Laboratory Results 06/19/17 06/20/17 06/21/17 Range/Units 12:20 04:15 03:58 WBC 9.24 7.71 11.23 H (4.8-10.8) 10^3/uL RBC 4.45 3.63 L 3.40 L (4.20-5.40) 10^6/uL Hgb 15.0 12.2 11.3 L (12.0-16.0) g/dL Hct 41.2 35.2 L 34.8 L (37.0-47.0) % MCV 92.6 97.0 102.4 H (81-99) FL MCH 33.7 H 33.6 H 33.2 H (27-31) PG MCHC 36.4 34.7 32.5 L (33-37) g/dL RDW Std Deviation 45.1 46.8 50.6 H (39-50) fL RDW Coeff of Farzad 13.7 13.8 13.9 (11.5-14.5) % Plt Count 219 145 161 (140-350) 10*3/uL MPV 9.3 9.6 9.8 (7.4-12.2) FL Immature Gran % (Auto) 0.2 0.3 0.3 (0-5) % Neut % (Auto) 70.9 65.3 85.2 H (50-80) % Lymph % (Auto) 21.2 24.9 9.9 L (10-50) % [place] % (Auto) 6.3 7.4 3.8 L (5-15) % Eos % (Auto) 0.6 1.8 0.6 (0-8) % Baso % (Auto) 0.8 0.3 0.2 (0-1) % Immature Gran # (Auto) 0.02 0.02 0.03 10*3/UL Neut # (Auto) 6.55 5.04 9.57 10*3/UL Lymph # (Auto) 1.96 1.92 1.11 10*3/uL [place] # (Auto) 0.58 0.57 0.43 (0.3-0.8) 10*3/UL Eos # (Auto) 0.06 0.14 0.07 10*3/UL Baso # (Auto) 0.07 0.02 0.02 10*3/UL WBC Morphology Comment Normal morphology Normal morphology Normal morphology (NORM) Plt Morphology Comment Normal morphology Normal morphology Normal morphology (NORM) RBC Morph Comment Normal morphology Normal morphology Normal morphology ( NORM) Sodium 132 L 134 L 135 (135-145) meq/L Potassium 3.0 L 3.4 L 5.0 D (3.8-5.2) meq/L Chloride 94 L 101 106 (98-112) meq/L Carbon Dioxide 19 L 20 L 16 L (23-33) meq/L Anion Gap 19 13 13 (5-20) BUN 21 23 H 18 (7-22) mg/dL Creatinine 1.9 H 1.4 H 0.8 (0.50-1.20) mg/dL Estimated GFR 29 41 > 60 (>60 ml/min/1.73m(2)) BUN/Creatinine Ratio 11.05 16.42 22.50 H (6-20) Glucose 184 H 96 56 L (78-110) mg/dL Calculated Osmolality 281.0 281.0 279.0 (267-292) mOsm/kg Calcium 11.2 H 8.7 8.5 L (8.7-10.7) mg/dL Magnesium 1.5 L 2.6 H 1.6 (1.6-2.4) mg/dL Total Bilirubin 2.4 H 1.0 D (0.3-1.2) mg/dL GGT 806 H (8-78) IU/L AST 36 47 H (8-39) IU/L ALT 48 31 (9-52) IU/L Alkaline Phosphatase 112 107 (38-126) IU/L NT-Pro-B Natriuret Pep (0-125) PG/ML Total Protein 8.4 H 6.6 (6.1-8.0) g/dL Albumin 5.1 H 4.0 (3.5-4.8) g/dL Globulin 3.3 2.6 (2.50-4.10) g/dL Albumin/Globulin Ratio 1.50 1.50 (1.3-2.0) mg/g Amylase 316 H (30-110) U/L Lipase 3159 H* 3124 H* 633 H (23-300) IU/L Ur Collection Type Urine Color Urine Clarity (CLEAR) Urine pH (5.0-8.5) Ur Specific [place] (1.005-1.030) Urine Protein (NEG) mg/dl Urine Glucose (UA) (NEG) mg/dL Urine Ketones (NEG) Urine Occult Blood (NEG) Urine Nitrate (NEG) Urine Bilirubin (NEG) Urine Urobilinogen (0.2) EU/dL Ur Leukocyte Esterase (NEG) Ur Culture Indicated? Serum Alcohol < 10 (0-10) mg/dL 06/22/17 06/22/17 06/23/17 Range/Units 04:48 18:03 04:47 WBC (4.8-10.8) 10^3/uL RBC (4.20-5.40) 10^6/uL Hgb (12.0-16.0) g/dL Hct (37.0-47.0) % MCV (81-99) FL MCH (27-31) PG MCHC (33-37) g/dL RDW Std Deviation (39-50) fL RDW Coeff of Farzad (11.5-14.5) % Plt Count (140-350) 10*3/uL MPV (7.4-12.2) FL Immature Gran % (Auto) (0-5) % Neut % (Auto) (50-80) % Lymph % (Auto) (10-50) % [place] % (Auto) (5-15) % Eos % (Auto) (0-8) % Baso % (Auto) (0-1) % Immature Gran # (Auto) 10*3/UL Neut # (Auto) 10*3/UL Lymph # (Auto) 10*3/uL [place] # (Auto) (0.3-0.8) 10*3/UL Eos # (Auto) 10*3/UL Baso # (Auto) 10*3/UL WBC Morphology Comment (NORM) Plt Morphology Comment (NORM) RBC Morph Comment (NORM) Sodium 133 L 135 (135-145) meq/L Potassium 3.8 D 3.0 L (3.8-5.2) meq/L Chloride 107 99 (98-112) meq/L Carbon Dioxide 20 L 26 (23-33) meq/L Anion Gap 6 10 (5-20) BUN 8 5 L (7-22) mg/dL Creatinine 0.6 0.7 (0.50-1.20) mg/dL Estimated GFR > 60 > 60 (>60 ml/min/1.73m(2)) BUN/Creatinine Ratio 13.33 7.14 (6-20) Glucose 104 128 H (78-110) mg/dL Calculated Osmolality 273.0 278.0 (267-292) mOsm/kg Calcium 8.4 L 8.8 (8.7-10.7) mg/dL Magnesium (1.6-2.4) mg/dL Total Bilirubin 1.8 H D (0.3-1.2) mg/dL GGT (8-78) IU/L AST 38 (8-39) IU/L ALT 29 (9-52) IU/L Alkaline Phosphatase 108 (38-126) IU/L NT-Pro-B Natriuret Pep 2260 H 1210 H (0-125) PG/ML Total Protein 5.6 L (6.1-8.0) g/dL Albumin 3.2 L (3.5-4.8) g/dL Globulin 2.4 L (2.50-4.10) g/dL Albumin/Globulin Ratio 1.30 (1.3-2.0) mg/g Amylase (30-110) U/L Lipase 161 (23-300) IU/L Ur Collection Type Clean catch urine Urine Color Yellow Urine Clarity Clear (CLEAR) Urine pH 6.5 (5.0-8.5) Ur Specific [place] 1.010 (1.005-1.030) Urine Protein Negative (NEG) mg/dl Urine Glucose (UA) 100 (NEG) mg/dL Urine Ketones Negative (NEG) Urine Occult Blood Negative (NEG) Urine Nitrate Negative (NEG) Urine Bilirubin Negative (NEG) Urine Urobilinogen 4.0 (0.2) EU/dL Ur Leukocyte Esterase Negative (NEG) Ur Culture Indicated? Culture not set Serum Alcohol (0-10) mg/dL 06/24/17 Range/Units 04:55 WBC 5.94 (4.8-10.8) 10^3/uL RBC 3.04 L (4.20-5.40) 10^6/uL Hgb 10.2 L (12.0-16.0) g/dL Hct 30.1 L (37.0-47.0) % MCV 99.0 (81-99) FL MCH 33.6 H (27-31) PG MCHC 33.9 (33-37) g/dL RDW Std Deviation 46.2 (39-50) fL RDW Coeff of Farzad 13.4 (11.5-14.5) % Plt Count 168 (140-350) 10*3/uL MPV 10.6 (7.4-12.2) FL Immature Gran % (Auto) 1.2 (0-5) % Neut % (Auto) 54.3 (50-80) % Lymph % (Auto) 25.9 (10-50) % [place] % (Auto) 12.5 (5-15) % Eos % (Auto) 5.4 (0-8) % Baso % (Auto) 0.7 (0-1) % Immature Gran # (Auto) 0.07 10*3/UL Neut # (Auto) 3.23 10*3/UL Lymph # (Auto) 1.54 10*3/uL [place] # (Auto) 0.74 (0.3-0.8) 10*3/UL Eos # (Auto) 0.32 10*3/UL Baso # (Auto) 0.04 10*3/UL WBC Morphology Comment Normal morphology (NORM) Plt Morphology Comment Normal morphology (NORM) RBC Morph Comment Normal morphology (NORM) Sodium 135 (135-145) meq/L Potassium 3.2 L (3.8-5.2) meq/L Chloride 102 (98-112) meq/L Carbon Dioxide 20 L (23-33) meq/L Anion Gap 13 (5-20) BUN 7 (7-22) mg/dL Creatinine 0.7 (0.50-1.20) mg/dL Estimated GFR > 60 (>60 ml/min/1.73m(2)) BUN/Creatinine Ratio 10.00 (6-20) Glucose 108 (78-110) mg/dL Calculated Osmolality 278.0 (267-292) mOsm/kg Calcium 8.2 L (8.7-10.7) mg/dL Magnesium (1.6-2.4) mg/dL Total Bilirubin 0.9 (0.3-1.2) mg/dL GGT (8-78) IU/L AST 20 (8-39) IU/L ALT 26 (9-52) IU/L Alkaline Phosphatase 87 (38-126) IU/L NT-Pro-B Natriuret Pep (0-125) PG/ML Total Protein 6.5 (6.1-8.0) g/dL Albumin 3.6 (3.5-4.8) g/dL Globulin 2.9 (2.50-4.10) g/dL Albumin/Globulin Ratio 1.20 L (1.3-2.0) mg/g Amylase (30-110) U/L Lipase (23-300) IU/L Ur Collection Type Urine Color Urine Clarity (CLEAR) Urine pH (5.0-8.5) Ur Specific [place] (1.005-1.030) Urine Protein (NEG) mg/dl Urine Glucose (UA) (NEG) mg/dL Urine Ketones (NEG) Urine Occult Blood (NEG) Urine Nitrate (NEG) Urine Bilirubin (NEG) Urine Urobilinogen (0.2) EU/dL Ur Leukocyte Esterase (NEG) Ur Culture Indicated? Serum Alcohol (0-10) mg/dL Discharge instruction Diet regular Activity as started Medications Home Medications Medication Instructions Recorded Confirmed Type Amlodipine Besylate 5 mg PO DAILY #30 tablet 11/29/16 06/19/17 Clinic Metoprolol Tartrate 25 mg PO BID #60 tab 11/29/16 06/19/17 Clinic Cyanocobalamin (Vitamin B-12) 1,000 mcg PO DAILY #90 tablet 03/12/17 06/19/17 Rx [Vitamin B-12] Escitalopram Oxalate [Lexapro] 1 tab PO DAILY #30 tab 03/21/17 06/19/17 Clinic Ondansetron [Zofran Odt] 8 mg PO Q8H #10 tab 05/30/17 06/19/17 Clinic Acetaminophen [Tylenol] 650 mg PO Q6H PRN #1 tab 06/24/17 Rx Amoxicillin/Potassium Clav 1 each PO BID #8 tablet 06/24/17 Rx [Augmentin 875-125 Tablet] Potassium Chloride [Klor-Con] 20 meq PO BID #10 tab 06/24/17 Rx Tramadol HCl 100 mg PO Q6H PRN #25 tab 06/24/17 Rx Follow-up with her PCP in 1-2 weeks Condition at discharge was stable for discharge Exam - Vitals Vital Signs: Vital Signs Temperature 97.4 F Temperature Source Temporal Artery Scan Pulse Rate [Apical] 91 Pulse Rate [Pulse Oximeter] 79 Pulse Rate 93 Respiratory Rate 18 Blood Pressure [Left Arm] 130/86 Blood Pressure 126/82 Pulse Ox 91 Oxygen Flow Rate 2 Oxygen Delivery Method Room Air Height 5 ft 3 in Weight 129 lb 12.8 oz - General General Appearance: POSITIVE: No Acute Distress, Cooperative - Head Head Exam: POSITIVE: Normal Inspection, Atraumatic - Eye Eye Exam: POSITIVE: Normal Appearance - ENT ENT Exam: POSITIVE: Normal Exam - Neck Neck Exam: POSITIVE: Normal Inspection - Respiratory Respiratory Exam: POSITIVE: Clear to Auscultation - Bilaterally - Cardiovascular Cardiovascular Exam: POSITIVE: RRR - GI/Abdominal GI/Abdominal Exam: POSITIVE: Normal Bowel Sounds, Non Tender, Non Distended, Soft - Rectal Rectal Exam: POSITIVE: Deferred - External Exam: POSITIVE: Deferred Exam: POSITIVE: Deferred - Extremities Extremities Exam: POSITIVE: Normal Inspection - Back Back Exam: POSITIVE: Normal Inspection - Neurological Neurological Exam: POSITIVE: Alert, Oriented x 3, CN II-XII Intact, Moves All Extremities Equally - Psychiatric Psychiatric Exam: POSITIVE: Normal Affect - Integumentary Integumentary Exam: POSITIVE: Normal Color Patient Problems - Patient Problem List (1) Pancreatitis Status: Acute (2) Acute lung injury Status: Acute Qualifiers: Encounter type: initial encounter Qualified Description: Acute lung injury, initial encounter Qualifier Code(s): (S27.309A) Unspecified injury of lung, unspecified, initial encounter (3) Hypokalemia Status: Acute (4) Hypertension Status: Acute Qualifiers: Hypertension type: essential hypertension Qualified Description: Essential hypertension Qualifier Code(s): (I10) Essential (primary) hypertension
== END 2017-06-24 12:15 | disposition home or self-care (01) | DRG 438 ==
LOC: ER 10:42 → MED/SURG 13:12 → UNDOADMIN 13:12
PROVIDERS: ADMIT Family Medicine; ATTEND Family Medicine
DX: K85.20 Alcohol induced acute pancreatitis without necrosis or infection (principal); J81.0 Acute pulmonary edema; F10.239 Alcohol dependence with withdrawal, unspecified; N17.9 Acute kidney failure, unspecified; I10 Essential (primary) hypertension; F32.9 Major depressive disorder, single episode, unspecified; F31.9 Bipolar disorder, unspecified; R91.8 Other nonspecific abnormal finding of lung field; Z72.0 Tobacco use; E83.42 Hypomagnesemia
CPT/HCPCS: 36415; 71010; 71020; 74177; 80048; 80053; 80320; 81003; 82150; 82977; 83690; 83735; 83880; 85025; 87040; 94761; 96361; 96374; 99284; J0131; J1170; J1885; J1940; J2405; J3360; J3475; J3480; J7030; S0077

== ENCOUNTER → 2017-06-28 | Outpatient (CLI) | payer SELFPAY ==
[2017-06-28 15:50] LABS: BLOOD UREA NITROGEN 13 mg/dL (7-22); BUN/CREATININE RATIO 14.44 (6-20); CALCIUM 11.6 mg/dL (8.7-10.7); EST GLOMERULAR FILTRATION > 60 (>60 ml/min/1.73m(2)); LIPASE 140 IU/L (23-300)
[2017-06-28 15:52] LABS: HEMATOCRIT 36.9 % (37.0-47.0); HEMOGLOBIN 12.6 g/dL (12.0-16.0); MEAN CORPUSCULAR HEMOGLOBIN 33.4 PG (27-31); MEAN CORPUSCULAR HGB CONC 34.1 g/dL (33-37); MEAN CORPUSCULAR VOLUME 97.9 FL (81-99); MEAN PLATELET VOLUME 8.9 FL (7.4-12.2); RED BLOOD COUNT 3.77 10^6/uL (4.20-5.40)
[2017-06-28 16:04] LABS: BAND NEUTROPHILS % 2 % (0-10); NEUTROPHILS % (MANUAL) 71 % (50-80); PLATELET MORPHOLOGY COMMENT NORMAL MORPHOLOGY (NORM); RBC MORPHOLOGY COMMENT NORMAL MORPHOLOGY (NORM); WBC MORPHOLOGY COMMENT NORMAL MORPHOLOGY (NORM)
[2017-06-28 16:05] LABS: BASOPHILS % (MANUAL) 0 % (0-1); EOSINOPHILS % (MANUAL) 0 % (0-8); LYMPHOCYTES % (MANUAL) 18 % (10-50); MONOCYTES % (MANUAL) 9 % (0-12)
--- NOTE | 2017-06-28 16:50 | DI ---
History: Nausea and vomiting Comparison: June 23, 2017 Findings: Cardiac silhouette is upper limits of normal size. Pulmonary vasculature is unremarkable. There's been resolution of the previously demonstrated pulmona ry vascular congestion since the chest film of June 23, 2017. There is no focal infiltrate. There is no pleural effusion. Incidental is made of internal fixation of the proximal right humerus Impression No acute pulmonary disease demonstrated on the current study.
[2017-06-28 17:28] LABS: HEMOGLOBIN A1C 6.42 % (4.2-6.0)
== END ==
LOC: MOB RAD 15:04
PROVIDERS: ATTEND Physician Assistant
DX: R11.2 Nausea with vomiting, unspecified (principal); R73.9 Hyperglycemia, unspecified; R19.7 Diarrhea, unspecified; Z72.0 Tobacco use
CPT/HCPCS: 36415; 71020; 80053; 82150; 83036; 83690; 85007

== ENCOUNTER 2017-06-29 20:07 | Inpatient (IN) | payer SELFPAY ==
[2017-06-29] MEDS ORDERED: Sodium Chloride 0.9% 1,000 ML PRIMARY IV ONE ×2 (20:28→22:29)
[2017-06-29] MEDS ORDERED: Famotidine Inj 20 MG in Normal Saline Flush 10 ML IVP ONE (20:28)
[2017-06-29] MEDS ORDERED: MORPHINE SULFATE 2 MG/1 ML IV ONE ×2 (20:28→22:28)
[2017-06-29] MEDS ORDERED: ONDANSETRON 4 MG/2 ML VIAL IVP ONE ×2 (20:28→22:06)
[2017-06-29] MEDS ORDERED: NORMAL SALINE 10 ML SYRINGE FLUSH IVP PRN ×2 (20:28→22:40)
[2017-06-29 21:09] LABS: BASOPHILS # (AUTO) 0.16 10*3/UL; BASOPHILS % (AUTO) 2.1 % (0-1); EOSINOPHILS # (AUTO) 0.06 10*3/UL; EOSINOPHILS % (AUTO) 0.8 % (0-8); HEMATOCRIT 35.1 % (37.0-47.0); HEMOGLOBIN 12.2 g/dL (12.0-16.0); LYMPHOCYTES # (AUTO) 2.29 10*3/uL; MEAN CORPUSCULAR HEMOGLOBIN 33.7 PG (27-31); MEAN CORPUSCULAR HGB CONC 34.8 g/dL (33-37); MEAN PLATELET VOLUME 8.8 FL (7.4-12.2); MONOCYTES # (AUTO) 0.43 10*3/UL (0.3-0.8); MONOCYTES % (AUTO) 5.5 % (5-15); NEUTROPHILS # (AUTO) 4.65 10*3/UL; NEUTROPHILS % (AUTO) 59.6 % (50-80); PLATELET MORPHOLOGY COMMENT NORMAL MORPHOLOGY (NORM); RBC MORPHOLOGY COMMENT NORMAL MORPHOLOGY (NORM); RED BLOOD COUNT 3.62 10^6/uL (4.20-5.40); WBC MORPHOLOGY COMMENT NORMAL MORPHOLOGY (NORM)
[2017-06-29 21:18] LABS: BLOOD UREA NITROGEN 19 mg/dL (7-22); BUN/CREATININE RATIO 21.11 (6-20); CALCIUM 10.9 mg/dL (8.7-10.7); EST GLOMERULAR FILTRATION > 60 (>60 ml/min/1.73m(2)); LIPASE 388 IU/L (23-300); SERUM ALBUMIN 4.7 g/dL (3.5-4.8)
--- NOTE | 2017-06-29 21:52 | DI ---
HISTORY: Pancreatic pain. COMPARISON: Report only from CT of the abdomen and pelvis dated 06/25/2017. TECHNIQUE: CT of the abdomen and pelvis was performed without contrast and submitted for interpretat ion. FINDINGS: The heart is within normal limits. No acute pathology is seen at the lung bases. The liver is grossly unremarkable. The spleen is within normal limits. The gallbladder is surgicall y absent. There is no biliary ductal dilatation. There is minimal fat stranding surrounding the nichols creatic head, consistent with clinically suspected mild acute uncomplicated pancreatitis. Several pa ncreatic calcifications are characteristic of chronic pancreatitis. The adrenal glands are unremarka ble. There are 2 nonobstructing left renal calculi measuring 3 mm and 6 mm. No calculi are seen in the right kidney. There is no hydronephrosis. The imaged bowel, mesentery, and omentum are unremarkable without evidence of obstruction or perforat ion. The appendix is not seen. There is no lymphadenopathy by size criteria. There is no ascites. No acute skeletal pathology is seen. IMPRESSION: 1. Acute uncomplicated pancreatitis. Additional sequelae of chronic pancreatitis. 2. Nonobstructing left renal calculi. No hydronephrosis. No ureteral or bladder calculi.
[2017-06-29 21:59] LABS: BILIRUBIN,URINE NEGATIVE (NEG); CLARITY,URINE CLEAR (CLEAR); COLOR,URINE YELLOW; GLUCOSE, URINE (UA) 500 mg/dL (NEG); NITRATE,URINE NEGATIVE (NEG); OCCULT BLOOD,URINE NEGATIVE (NEG); PROTEIN,URINE NEGATIVE (NEG); UROBILINOGEN,URINE 0.2 EU/dL (0.2)
[2017-06-29 22:00] LABS: URINE SAMPLE TYPE VOIDED SPECIMEN
[2017-06-29] MEDS ORDERED: MORPHINE SULFATE 4 MG/1 ML IVP ONE (22:29)
[2017-06-29] MEDS ORDERED: LIDOCAINE W/ SODIUM BICARB 0.5 ML SYR SUBD PRN (22:40)
[2017-06-29] MEDS ORDERED: traZODone Tab 50 MG TAB PO SCH (22:45)
[2017-06-29] MEDS: AmLODIPine Tab 5 MG TABLET PO SCH (23:44)
[2017-06-29] MEDS: MORPHINE SULFATE 2 MG/1 ML IVP PRN (23:45)
[2017-06-30] MEDS: Metoprolol TARTRATE Tab 25 MG TAB PO SCH ×3 (00:26→20:25)
[2017-06-30] MEDS: MORPHINE SULFATE 2 MG/1 ML IVP PRN ×3 (03:17→09:57)
[2017-06-30] MEDS: ONDANSETRON 4 MG/2 ML VIAL IVP PRN ×2 (03:18→07:45)
--- NOTE | 2017-06-30 05:37 | PDOC ---
Abdomen/Flank HPI - General Chief Complaint: Nausea / Vomiting / Diarrhea Stated Complaint: NAUSEA/VOMITING/WEAKNESS Date Seen by Provider: 06/29/17 Time Seen by Provider: 20:20 Source: POSITIVE: Patient, Old records Exam Limitations: POSITIVE: No limitations Nurse's Notes Reviewed & Considered: Yes - History of Present Illness Initial Comments: The patient is a 46-year-old female. She presents to the emergency room complaining of a 2-3 day history of vomiting and upper abdominal pain. She was recently admitted to the hospital for treatment of pancreatitis. Patient has had a cholecystectomy and an appendectomy. Patient has a history of alcoholism , and states she's not had any alcohol for the past month. She's had some associated diarrhea. No fevers. Body Location Affected: REPORTS: Abdomen Timing: REPORTS: Constant, Getting Worse Duration: >24 hours (2-3 days) Severity: Moderate Quality: REPORTS: "Pain" (Upper abdominal and epigastric pain) Abdominal Pain Onset Location: REPORTS: RUQ, Epigastric Abdominal Pain Radiation: REPORTS: No radiation Context: REPORTS: None Modifying Factors: improves with: Nothing Associated Symptoms: REPORTS: Nausea, Vomiting, Weakness Similar Symptoms Previously: Yes Recent Care Received: REPORTS: Recently Seen, Treated by MD, Hospitalized Any Prior Injuries Related to Current Complaint?: No - Patient Home Medications Home Medications: Home Medications Metoprolol Tartrate 25 mg PO BID #60 tab 11/29/16 Cyanocobalamin (Vitamin B-12) [Vitamin B-12] 1,000 mcg PO DAILY #90 tablet 03/12 Escitalopram Oxalate [Lexapro] 1 tab PO DAILY #30 tab 03/21/17 Ondansetron [Zofran Odt] 8 mg PO Q8H #10 tab 05/30/17 Acetaminophen [Tylenol] 650 mg PO Q6H PRN #1 tab 06/24/17 Amoxicillin/Potassium Clav [Augmentin 875-125 Tablet] 1 each PO BID #8 tablet Potassium Chloride [Klor-Con] 20 meq PO BID #10 tab 06/24/17 Tramadol HCl 100 mg PO Q6H PRN #25 tab 06/24/17 Amlodipine Besylate 5 mg PO DAILY #30 tablet 06/27/17 Trazodone HCl 1 tab PO QHS #30 tab 06/27/17 Ondansetron [Zofran Odt] 4 mg PO TID #10 tab 06/28/17 - Patient Allergies Allergies/Adverse Reactions: Allergies Allergy/AdvReac Type Severity Reaction Status Date / Time codeine AdvReac HALLUCINATI Verified 06/29/17 20:23 ONS levofloxacin [From Levaquin] AdvReac HALLUCINATI Verified 06/29/17 20:23 ONS oxycodone AdvReac HALLUCINATI Verified 06/29/17 20:23 ONS Past Medical History - heen HEENT History: Other (please comment) Additional HEENT History: WEARS GLASSES. "BULL'S EYE VISION" Cardiovascular History: Hypertension, Other (please comment) Additional Cardiovasular History: PALPITATIONS Respiratory History: Pneumonia, Snoring, Other (please comment) Additional Respiratory History: chronic tobacco use Gastrointestinal History: GERD, Gallbladder Disease, Pancreatitis, Other ( please comment) Additional Gastrointestinal History: Chronic alcoholism. elevated liver enzymes Genitourinary History: Denies History Endocrine History: Denies History Musculoskeletal History: Joint Pain, Other (please comment) Prosthesis or Implant: Yes (BREAST AUGMENTATION) Additional Musculoskeletal History: Pt fell down several stairs and fractured right shoulder. Pt had surgery on shoulder to repair fracture. X2 Neurological History: Seizures, Other (please comment) Additional Neurological History: SEIZURE WITH DETOX Blood Disorders: Denies History Psychiatric History: Depression, Anxiety Disorders, Substance Abuse Additional Psychiatric History: ALCOHOLISM: CHRONIC AND RECURRENT. PANIC DISORDER. PATIENT RECENTLY ATTEMPTED REHAB History of Sexually Transmitted Diseases: No Female Reproductive History: Denies History Obstetrical History: Denies History Cancer History: Denies History In Past Year Been Physically Harmed or Verbally Threatened: No History of MDRO: Yes Other Type of MDRO: TESTED POSITIVE 2014 FOLLOWED BY 2 NEG SWABS History of Other Communicable Diseases: Yes (MONO, VARICELLA) Tobacco Use: Current Every Day Smoker Alcohol Use: Heavy Type of alcohol normally used: Hard Liquor Substance Use Type: None Previous Surgical History: Yes Type / Date of Surgery: APPENDECTOMY, CHOLECYSTECTOMY, ABDOMINOPLASTY, BREAST AUGMENTATION, Right shoulder surgeryX2 Anesthesia Reactions: No Malignant Hyperthermia: No Significant Family History: Asthma, Heart disease, Cancer, Diabetes, Hypertension Additional Family History: EARLY MENOPAUSE - MOTHER Past Medical History Reviewed: Reviewed - No Changes ROS - Limitations ROS Limitations: No Limitations Constitution: REPORTS: Denies Symptoms Cardiovascular: REPORTS: Denies Cardiac Symptoms Respiratory: REPORTS: Denies Resp Symptoms Neurological: REPORTS: Denies Neuro Symptoms Gastrointestinal: REPORTS: Abdominal Pain, Nausea, Vomitting Endocrine: REPORTS: Denies Symptoms Musculoskeletal: REPORTS: Denies MS Symptoms Genitourinary: REPORTS: Denies Symptoms Eyes: REPORTS: Denies Symptoms ENT: REPORTS: Denies Symptoms Skin: REPORTS: Denies Skin Symptoms Lympathic: REPORTS: Denies Lympathic Symptoms Immunologic: POSITIVE: Denies Symptoms Psychiatric: POSITIVE: Denies Psych Symptoms Abdominal/Flank Pain PE - General Appearance General Appearance: POSITIVE: Alert, Cooperative, No Acute Distress, No Evidence of Trauma - HEENT HEENT: POSITIVE: Head Inspection Nml, Eyes Inspection Nml, Ears Inspection Nml, Nose Inspection Nml, Oral/Dental Inspect. Nml, Pharynx Inspect. Nml, PERRL, EOMI - Neck Neck: POSITIVE: Normal Inspection, No Apparent Injury - Respiratory Respiratory: POSITIVE: No Respiratory Distress, Breath Sounds Normal, Chest Non- Tender - Cardiovascular Cardiovascular: POSITIVE: Regular Rate and Rhythm, Heart Sounds Normal, Equal Pulses, Strong Pulses Peripheral Pulses: Radial (R): 2+, Radial (L): 2+ - Chest Chest: POSITIVE: Non Tender - Abdomen Abdomen: Soft: (All Quadrants), Normal Bowel Sounds: (All Quadrants), Denies Tenderness: (LLQ), (RLQ), No Splenomegaly: (All Quadrants), No Hepatomegaly: ( All Quadrants), No Guarding: (All Quadrants), No Rebound: (All Quadrants), No Palpable Pulse: (All Quadrants), No Palpabale Mass: (All Quadrants), No Distention: (All Quadrants), No Rigidity: (All Quadrants), Tenderness Noted: ( RUQ), (LUQ) Additional Abdominal Details: Abdominal examination shows bowel sounds to be active. Patient has discomfort/ pain on palpation in epigastrium and right upper quadrant, without masses, organomegaly or rebound. 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 Normal As Tested, Motor Normal, Sensation Normal - Psychological Psychiatric: POSITIVE: Affect Appropriate, Mood Appropriate Images - Complete Complete: 1 - Area of pain on palpation Abdomen Progress - Results Reviewed by me Xrays/CTs/US Reviewed by me: Yes Discussed with Radiologist: Yes Radiology Findings: CT scan abdomen compatible with acute pancreatitis Lab Results Reviewed: Yes Lab Results:: Laboratory Results 06/29/17 06/29/17 06/29/17 Range/Units 20:28 21:07 21:55 WBC 7.79 (4.8-10.8) 10^3/uL RBC 3.62 L (4.20-5.40) 10^6/uL Hgb 12.2 (12.0-16.0) g/dL Hct 35.1 L (37.0-47.0) % MCV 97.0 (81-99) FL MCH 33.7 H (27-31) PG MCHC 34.8 (33-37) g/dL RDW Std Deviation 47.0 (39-50) fL RDW Coeff of Farzad 13.9 (11.5-14.5) % Plt Count 525 H (140-350) 10*3/uL MPV 8.8 (7.4-12.2) FL Immature Gran % (Auto) 2.6 (0-5) % Neut % (Auto) 59.6 (50-80) % Lymph % (Auto) 29.4 (10-50) % [place] % (Auto) 5.5 (5-15) % Eos % (Auto) 0.8 (0-8) % Baso % (Auto) 2.1 H (0-1) % Immature Gran # (Auto) 0.20 10*3/UL Neut # (Auto) 4.65 10*3/UL Lymph # (Auto) 2.29 10*3/uL [place] # (Auto) 0.43 (0.3-0.8) 10*3/UL Eos # (Auto) 0.06 10*3/UL Baso # (Auto) 0.16 10*3/UL WBC Morphology Comment Normal morphology (NORM) Plt Morphology Comment Normal morphology (NORM) RBC Morph Comment Normal morphology (NORM) Sodium 131 L (135-145) meq/L Potassium 3.2 L (3.8-5.2) meq/L Chloride 92 L (98-112) meq/L Carbon Dioxide 19 L (23-33) meq/L Anion Gap 20 (5-20) BUN 19 (7-22) mg/dL Creatinine 0.9 (0.50-1.20) mg/dL Estimated GFR > 60 (>60 ml/min/1.73m(2)) BUN/Creatinine Ratio 21.11 H (6-20) Glucose 337 H (78-110) mg/dL Calculated Osmolality 286.0 (267-292) mOsm/kg Calcium 10.9 H (8.7-10.7) mg/dL Magnesium 1.4 L (1.6-2.4) mg/dL Total Bilirubin 0.5 (0.3-1.2) mg/dL AST 61 H (8-39) IU/L ALT 34 D (9-52) IU/L Alkaline Phosphatase 86 (38-126) IU/L Total Protein 7.6 (6.1-8.0) g/dL Albumin 4.7 (3.5-4.8) g/dL Globulin 2.9 (2.50-4.10) g/dL Albumin/Globulin Ratio 1.60 (1.3-2.0) mg/g Amylase 73 (30-110) U/L Lipase 388 H (23-300) IU/L Serum HCG, Qual Negative Ur Collection Type Voided specimen Urine Color Yellow Urine Clarity Clear (CLEAR) Urine pH 7.0 (5.0-8.5) Ur Specific [place] 1.010 (1.005-1.030) Urine Protein Negative (NEG) mg/dl Urine Glucose (UA) 500 (NEG) mg/dL Urine Ketones Negative (NEG) Urine Occult Blood Negative (NEG) Urine Nitrate Negative (NEG) Urine Bilirubin Negative (NEG) Urine Urobilinogen 0.2 (0.2) EU/dL Ur Leukocyte Esterase Negative (NEG) Ur Culture Indicated? Culture not set Serum Alcohol < 10 (0-10) mg/dL - Patient's Progress Pain Medication Addressed: POSITIVE: Yes (Morphine sulfate) School/Work Release Addressed: POSITIVE: Not Applicable Re-examine Time: 22:20 Re-Examine Comment: Abdominal pain somewhat less after morphine. Patient medicated with Zofran 2 for vomiting and retching. Status: POSITIVE: Improved, Re-Examined - Consult Consult (If Yes, Name of Consulting MD & Time Called): Yes (Dr. Lopez, hospitalist, [id number]) Consulting MD will see pt:: POSITIVE: [facility] [place] Admit Counseled: POSITIVE: Patient, RE: Lab Results, RE: Radiology Results, RE: DX, RE : Need for F/U Patient Care Time - Estimated PCT Patient Care Time (In Minutes): 50 Vital Signs - Recent Vital Signs Vital Signs: Vital Signs (Last 8 hours) Temp Pulse Pulse Resp BP Pulse Ox 06/30/17 04:33 97.8 F 69 18 144/85 95 06/30/17 03:00 58 L 06/29/17 22:40 77 18 - VS Reviewed Vital Signs Reviewed: Yes Discharge Clinical Impression: Acute hyperglycemia, Pancreatitis Discharge Disposition: Admit to Inpatient Condition: Stable Date Decision to Admit to Inpatient: 06/30/17 Time Decision to Admit to Inpatient: 22:20
[2017-06-30] MEDS ORDERED: Magnesium Sulfate 2gm (Premix) 2 GM in Premix 1 BAG IV ONE (08:10)
[2017-06-30] MEDS: NICOTINE 21 MG /DAY PATCH TRANSDERM SCH (08:50)
[2017-06-30] MEDS: ENOXAPARIN SODIUM 40 MG/0.4 ML SYRINGE SUBCUT SCH (08:51)
[2017-06-30] MEDS: Pantoprazole Inj 40 MG in Normal Saline Flush 10 ML IVP SCH (08:51)
[2017-06-30] MEDS: ESCITALOPRAM 10 MG TABLET PO SCH (08:53)
[2017-06-30] MEDS: AmLODIPine Tab 5 MG TABLET PO SCH (08:55)
[2017-06-30] MEDS ORDERED: AmLODIPine Tab 5 MG TABLET PO SCH (09:00)
[2017-06-30] MEDS ORDERED: Metoprolol TARTRATE Tab 25 MG TAB PO SCH (09:00)
[2017-06-30] MEDS ORDERED: NICOTINE 21 MG /DAY PATCH TRANSDERM SCH (09:00)
[2017-06-30 09:54] LABS: BLOOD UREA NITROGEN 12 mg/dL (7-22); BUN/CREATININE RATIO 17.14 (6-20); CALCIUM 9.6 mg/dL (8.7-10.7); EST GLOMERULAR FILTRATION > 60 (>60 ml/min/1.73m(2)); LIPASE 199 IU/L (23-300); SERUM ALBUMIN 3.6 g/dL (3.5-4.8)
--- NOTE | 2017-06-30 10:18 | PDOC ---
History and Physical - History of Present Illness History of Present Illness: Is a very nice 46-year-old female with past medical history of chronic alcoholism she says that she has been sober for 1 month now she does have a history of repeated the pancreatitis and the from the CT scan results distal clinic chronic from the calcifications she has had a cholecystectomy. She comes in for a left lower quadrant pain treated with morphine. This morning her pain is improved almost disappeared her lipase is within normal range we will advance diet Past Medical History Medical History: 1. Hypertension. 2. tobacco abuse. 3. Alcohol abuse, her pattern seems to be more of a binge drinking pattern as of late. 4. Recurrent pancreatitis. 5. Major depressive disorder versus bipolar disorder, one of the reasons patient states she drinks alcohol. 6. Medical noncompliance Surgical History: 1. History of cholecystectomy. 2. Appendectomy. 3. Breast augmentation and tummy tuck. 4. Shoulder surgery Family History: Reviewed an Not Pertinent Pertinent Family History: The patient is adopted but states her biologic mother had diabetes type II. The patient's mother when the patient was 4 years old. Her father is described as healthy. Past Social History: Smokes, drinks alcohol, lives in [place] with her father. Does not currently work. She states this is largely because of her shoulder. She does have a daughter who is about 20 years old. Tobacco Use: Current Every Day Smoker Do you dip or chew tobacco: No Substance Use Type: None Medication / Allergies Home Medications: Home Medications Medication Instructions Recorded Confirmed Type Metoprolol Tartrate 25 mg PO BID #60 tab 11/29/16 06/29/17 Clinic Cyanocobalamin (Vitamin B-12) 1,000 mcg PO DAILY #90 tablet 03/12/17 06/29/17 Rx [Vitamin B-12] Escitalopram Oxalate [Lexapro] 1 tab PO DAILY #30 tab 03/21/17 06/29/17 Clinic Ondansetron [Zofran Odt] 8 mg PO Q8H #10 tab 05/30/17 06/29/17 Clinic Acetaminophen [Tylenol] 650 mg PO Q6H PRN #1 tab 06/24/17 06/29/17 Rx Amoxicillin/Potassium Clav 1 each PO BID #8 tablet 06/24/17 06/29/17 Rx [Augmentin 875-125 Tablet] Potassium Chloride [Klor-Con] 20 meq PO BID #10 tab 06/24/17 06/29/17 Rx Tramadol HCl 100 mg PO Q6H PRN #25 tab 06/24/17 06/29/17 Rx Amlodipine Besylate 5 mg PO DAILY #30 tablet 06/27/17 06/29/17 Clinic Trazodone HCl 1 tab PO QHS #30 tab 06/27/17 06/29/17 Clinic Ondansetron [Zofran Odt] 4 mg PO TID #10 tab 06/28/17 06/29/17 Clinic Allergies/Adverse Reactions: Allergies Allergy/AdvReac Type Severity Reaction Status Date / Time codeine AdvReac HALLUCINATI Verified 06/29/17 20:23 ONS levofloxacin [From Levaquin] AdvReac HALLUCINATI Verified 06/29/17 20:23 ONS oxycodone AdvReac HALLUCINATI Verified 06/29/17 20:23 ONS Review of Systems - Review of Systems All Systems: Reviewed & No Additional Complaints Except as Stated - Respiratory Respiratory: DENIES: Negative System Review, Cough, Sputum, Dyspnea At Rest, Dyspnea with Exertion, Pleuritic Pain, Hemoptysis, Wheezing, Other, See HPI - Cardiovascular Cardiovascular: DENIES: Negative System Review, Chest Pain, Edema, Syncope, Palpitations, Orthopnea, Paroxysmal Nocturnal Dyspnea, Other, See HPI - Gastrointestinal Gastrointestinal / Abdominal: REPORTS: Abdominal Pain Exam - Vitals Vital Signs: Vital Signs Temperature 98.6 F Temperature Source Temporal Artery Scan Pulse Rate [Pulse Oximeter] 60 Pulse Rate 55 Respiratory Rate 16 Blood Pressure [Left Arm] 127/75 Pulse Ox 99 Oxygen Delivery Method Room Air Height 5 ft 3 in Weight 58.967 kg - General General Appearance: POSITIVE: No Acute Distress, Cooperative - Head Head Exam: POSITIVE: Normal Inspection, Normocephalic - Eye Eye Exam: POSITIVE: Normal Appearance - Respiratory Respiratory Exam: POSITIVE: Clear to Auscultation - Bilaterally, Breathing Non Labored, Normal To Percussion - Cardiovascular Cardiovascular Exam: POSITIVE: No Murmur, No Clicks - GI/Abdominal GI/Abdominal Exam: POSITIVE: Normal Bowel Sounds, Non Tender, Non Distended, Soft - Extremities Extremities Exam: POSITIVE: No Clubbing Present, No Edema Present, No Cyanosis Present - Neurological Neurological Exam: POSITIVE: Alert, Oriented x 3, No Facial Droop, Speech Intact / Clear - Psychiatric Psychiatric Exam: POSITIVE: Normal Affect, Normal Mood Results - Labs CBC and BMP: 06/29/17 21:07 06/30/17 09:30 Labs - Last 24 Hours: Laboratory Results 06/30/17 Range/Units 09:30 Sodium 136 (135-145) meq/L Potassium 3.5 L (3.8-5.2) meq/L Chloride 105 (98-112) meq/L Carbon Dioxide 22 L (23-33) meq/L Anion Gap 9 (5-20) BUN 12 (7-22) mg/dL Creatinine 0.7 (0.50-1.20) mg/dL Estimated GFR > 60 (>60 ml/min/1.73m(2)) BUN/Creatinine Ratio 17.14 (6-20) Glucose 139 H (78-110) mg/dL Calculated Osmolality 283.0 (267-292) mOsm/kg Calcium 9.6 (8.7-10.7) mg/dL Total Bilirubin 0.4 (0.3-1.2) mg/dL AST 51 H (8-39) IU/L ALT 31 (9-52) IU/L Alkaline Phosphatase 65 (38-126) IU/L Total Protein 6.1 (6.1-8.0) g/dL Albumin 3.6 (3.5-4.8) g/dL Globulin 2.5 (2.50-4.10) g/dL Albumin/Globulin Ratio 1.40 (1.3-2.0) mg/g Lipase 199 (23-300) IU/L Assessment and Plan - Patient Problems (1) Pancreatitis Current Visit: Yes Status: Acute Comment: Most likely chronic secondary to alcohol lipase within normal range continue to hydrate replace magnesium and potassium was advanced to clear liquids CT scan reviewed consistent with pancreatitis patient still has a some mild lower left lower quadrant pain at times very hard to discern she states that the morphine at times works at times doesn't we will switch to dye lauded start ice chips and hopefully by the morning she will be able to advance her diet (2) Hypokalemia due to inadequate potassium intake Current Visit: Yes Status: Acute (3) Hypertension Current Visit: No Status: Acute Comment: Continue usual meds Qualifiers: Qualified Description: Essential hypertension Qualifier Code(s): (I10 ) Essential (primary) hypertension (4) Hypomagnesemia Current Visit: No Status: Acute
[2017-06-30] MEDS ORDERED: ZOLPIDEM 10 MG TABLET PO PRN (10:54)
[2017-06-30] MEDS: HYDROmorphone 2 MG/1 ML IVP PRN ×3 (11:52→20:24)
[2017-06-30] MEDS ORDERED: Patch Removal PATCH TRANSDERM SCH (23:49)
[2017-07-01] MEDS: HYDROmorphone 2 MG/1 ML IVP PRN ×2 (02:00→06:01)
[2017-07-01] MEDS: ONDANSETRON 4 MG/2 ML VIAL IVP PRN (03:55)
[2017-07-01 04:14] LABS: BLOOD UREA NITROGEN 8 mg/dL (7-22); BUN/CREATININE RATIO 11.42 (6-20); CALCIUM 9.5 mg/dL (8.7-10.7); EST GLOMERULAR FILTRATION > 60 (>60 ml/min/1.73m(2)); LIPASE 122 IU/L (23-300); SERUM ALBUMIN 3.9 g/dL (3.5-4.8)
[2017-07-01 08:02] VITALS: RESP 18
[2017-07-01] MEDS: Pantoprazole Inj 40 MG in Normal Saline Flush 10 ML IVP SCH (08:17)
[2017-07-01] MEDS: Metoprolol TARTRATE Tab 25 MG TAB PO SCH (08:18)
[2017-07-01] MEDS: ENOXAPARIN SODIUM 40 MG/0.4 ML SYRINGE SUBCUT SCH (08:18)
[2017-07-01] MEDS: AmLODIPine Tab 5 MG TABLET PO SCH (08:18)
[2017-07-01] MEDS: ESCITALOPRAM 10 MG TABLET PO SCH (08:18)
[2017-07-01] MEDS: NICOTINE 21 MG /DAY PATCH TRANSDERM SCH (08:22)
--- NOTE | 2017-07-01 09:18 | PDOC(PROG) ---
Interval History: See my discharge summary of today Objective : Data - Labs CBC and BMP: 06/29/17 21:07 07/01/17 04:01 Labs - Last 24 Hours: Laboratory Results 06/30/17 06/30/17 07/01/17 Range/Units 09:30 14:09 04:01 Sodium 136 136 (135-145) meq/L Potassium 3.5 L 4.5 (3.8-5.2) meq/L Chloride 105 105 (98-112) meq/L Carbon Dioxide 22 L 22 L (23-33) meq/L Anion Gap 9 9 (5-20) BUN 12 8 (7-22) mg/dL Creatinine 0.7 0.7 (0.50-1.20) mg/dL Estimated GFR > 60 > 60 (>60 ml/min/1.73m(2)) BUN/Creatinine Ratio 17.14 11.42 (6-20) Glucose 139 H 110 (78-110) mg/dL Calculated Osmolality 283.0 280.0 (267-292) mOsm/kg Calcium 9.6 9.5 (8.7-10.7) mg/dL Magnesium 2.2 (1.6-2.4) mg/dL Total Bilirubin 0.4 0.4 (0.3-1.2) mg/dL AST 51 H 56 H (8-39) IU/L ALT 31 36 (9-52) IU/L Alkaline Phosphatase 65 66 (38-126) IU/L Total Protein 6.1 6.6 (6.1-8.0) g/dL Albumin 3.6 3.9 (3.5-4.8) g/dL Globulin 2.5 2.8 (2.50-4.10) g/dL Albumin/Globulin Ratio 1.40 1.30 (1.3-2.0) mg/g Lipase 199 122 (23-300) IU/L Assessment and Plan - Patient Problems (1) Pancreatitis Current Visit: Yes Status: Acute Comment: Improved lipase within normal range pain is improved advance diet to clears and advance as tolerated stop IV fluids (2) Hypokalemia due to inadequate potassium intake Current Visit: Yes Status: Acute Comment: Replaced now within normal limits we'll stop IV fluid replacement (3) Hypertension Current Visit: No Status: Acute Comment: sTable on current meds (4) Hypomagnesemia Current Visit: No Status: Acute Comment: Replaced with 4 g now 2.2
[2017-07-01 11:26] VITALS: TEMP 98.7
--- NOTE | 2017-07-01 11:46 | DCSUMMARY ---
Hospitalization Summary Hospital Course: Final Discharge Diagnosis: Current Visit Problems Problem Status Priority Diagnosed Code Acute hyperglycemia Acute R73.9 Hypokalemia due to inadequate potassium intake Acute E87.6 Pancreatitis Acute K85.9 Diagnostic Data, Laboratory Data, and Procedures of Signifigance: Laboratory Results 06/29/17 06/29/17 06/29/17 Range/Units 20:28 21:07 21:55 WBC 7.79 (4.8-10.8) 10^3/uL RBC 3.62 L (4.20-5.40) 10^6/uL Hgb 12.2 (12.0-16.0) g/dL Hct 35.1 L (37.0-47.0) % MCV 97.0 (81-99) FL MCH 33.7 H (27-31) PG MCHC 34.8 (33-37) g/dL RDW Std Deviation 47.0 (39-50) fL RDW Coeff of Farzad 13.9 (11.5-14.5) % Plt Count 525 H (140-350) 10*3/uL MPV 8.8 (7.4-12.2) FL Immature Gran % (Auto) 2.6 (0-5) % Neut % (Auto) 59.6 (50-80) % Lymph % (Auto) 29.4 (10-50) % [place] % (Auto) 5.5 (5-15) % Eos % (Auto) 0.8 (0-8) % Baso % (Auto) 2.1 H (0-1) % Immature Gran # (Auto) 0.20 10*3/UL Neut # (Auto) 4.65 10*3/UL Lymph # (Auto) 2.29 10*3/uL [place] # (Auto) 0.43 (0.3-0.8) 10*3/UL Eos # (Auto) 0.06 10*3/UL Baso # (Auto) 0.16 10*3/UL WBC Morphology Comment Normal morphology (NORM) Plt Morphology Comment Normal morphology (NORM) RBC Morph Comment Normal morphology (NORM) Sodium 131 L (135-145) meq/L Potassium 3.2 L (3.8-5.2) meq/L Chloride 92 L (98-112) meq/L Carbon Dioxide 19 L (23-33) meq/L Anion Gap 20 (5-20) BUN 19 (7-22) mg/dL Creatinine 0.9 (0.50-1.20) mg/dL Estimated GFR > 60 (>60 ml/min/1.73m(2)) BUN/Creatinine Ratio 21.11 H (6-20) Glucose 337 H (78-110) mg/dL Calculated Osmolality 286.0 (267-292) mOsm/kg Calcium 10.9 H (8.7-10.7) mg/dL Magnesium 1.4 L (1.6-2.4) mg/dL Total Bilirubin 0.5 (0.3-1.2) mg/dL AST 61 H (8-39) IU/L ALT 34 D (9-52) IU/L Alkaline Phosphatase 86 (38-126) IU/L Total Protein 7.6 (6.1-8.0) g/dL Albumin 4.7 (3.5-4.8) g/dL Globulin 2.9 (2.50-4.10) g/dL Albumin/Globulin Ratio 1.60 (1.3-2.0) mg/g Amylase 73 (30-110) U/L Lipase 388 H (23-300) IU/L Serum HCG, Qual Negative Ur Collection Type Voided specimen Urine Color Yellow Urine Clarity Clear (CLEAR) Urine pH 7.0 (5.0-8.5) Ur Specific [place] 1.010 (1.005-1.030) Urine Protein Negative (NEG) mg/dl Urine Glucose (UA) 500 (NEG) mg/dL Urine Ketones Negative (NEG) Urine Occult Blood Negative (NEG) Urine Nitrate Negative (NEG) Urine Bilirubin Negative (NEG) Urine Urobilinogen 0.2 (0.2) EU/dL Ur Leukocyte Esterase Negative (NEG) Ur Culture Indicated? Culture not set Serum Alcohol < 10 (0-10) mg/dL 06/30/17 06/30/17 07/01/17 Range/Units 09:30 14:09 04:01 WBC (4.8-10.8) 10^3/uL RBC (4.20-5.40) 10^6/uL Hgb (12.0-16.0) g/dL Hct (37.0-47.0) % MCV (81-99) FL MCH (27-31) PG MCHC (33-37) g/dL RDW Std Deviation (39-50) fL RDW Coeff of Farzad (11.5-14.5) % Plt Count (140-350) 10*3/uL MPV (7.4-12.2) FL Immature Gran % (Auto) (0-5) % Neut % (Auto) (50-80) % Lymph % (Auto) (10-50) % [place] % (Auto) (5-15) % Eos % (Auto) (0-8) % Baso % (Auto) (0-1) % Immature Gran # (Auto) 10*3/UL Neut # (Auto) 10*3/UL Lymph # (Auto) 10*3/uL [place] # (Auto) (0.3-0.8) 10*3/UL Eos # (Auto) 10*3/UL Baso # (Auto) 10*3/UL WBC Morphology Comment (NORM) Plt Morphology Comment (NORM) RBC Morph Comment (NORM) Sodium 136 136 (135-145) meq/L Potassium 3.5 L 4.5 (3.8-5.2) meq/L Chloride 105 105 (98-112) meq/L Carbon Dioxide 22 L 22 L (23-33) meq/L Anion Gap 9 9 (5-20) BUN 12 8 (7-22) mg/dL Creatinine 0.7 0.7 (0.50-1.20) mg/dL Estimated GFR > 60 > 60 (>60 ml/min/1.73m(2)) BUN/Creatinine Ratio 17.14 11.42 (6-20) Glucose 139 H 110 (78-110) mg/dL Calculated Osmolality 283.0 280.0 (267-292) mOsm/kg Calcium 9.6 9.5 (8.7-10.7) mg/dL Magnesium 2.2 (1.6-2.4) mg/dL Total Bilirubin 0.4 0.4 (0.3-1.2) mg/dL AST 51 H 56 H (8-39) IU/L ALT 31 36 (9-52) IU/L Alkaline Phosphatase 65 66 (38-126) IU/L Total Protein 6.1 6.6 (6.1-8.0) g/dL Albumin 3.6 3.9 (3.5-4.8) g/dL Globulin 2.5 2.8 (2.50-4.10) g/dL Albumin/Globulin Ratio 1.40 1.30 (1.3-2.0) mg/g Amylase (30-110) U/L Lipase 199 122 (23-300) IU/L Serum HCG, Qual Ur Collection Type Urine Color Urine Clarity (CLEAR) Urine pH (5.0-8.5) Ur Specific [place] (1.005-1.030) Urine Protein (NEG) mg/dl Urine Glucose (UA) (NEG) mg/dL Urine Ketones (NEG) Urine Occult Blood (NEG) Urine Nitrate (NEG) Urine Bilirubin (NEG) Urine Urobilinogen (0.2) EU/dL Ur Leukocyte Esterase (NEG) Ur Culture Indicated? Serum Alcohol (0-10) mg/dL History and Physical pertinent to Admission: Course of Hospitalization: This very nice 46-year-old female with past medical history significant for chronic alcoholism she has not drank for a month now and some calcifications on her pancreas from CT scan and was admitted for chronic pancreatitis with mild elevation of her lipase and some left lower quadrant pain also she was found to have hypokalemia and hypomagnesemia these were both replaced are normal now her lipase is normalized and the pain has disappeared she was reintroduced to her diet which he tolerated well without any pain patient is improved and stabilized and ready to be discharged home we also recommended she get a consult with [facility] because she scored an hour depression scale she has refused this patient is not suicidal or homicidal and will be following up with her primary care physician and she is already on medication and is being treated by the primary care physician Dr. Mcallister On the date of discharge, the patient was examined: Gen.: No acute distress, alert, nontoxic Heart: Regular rate and rhythm, no murmurs, clicks, gallops, or rubs Lungs: Clear to auscultation bilaterally, breathing is nonlabored Abdomen/GI: Normal tones on auscultation, soft, nontender, nondistended Musculoskeletal/extremities: No clubbing, cyanosis, or edema Vitals reviewed and are listed below Assessment and Plan: 1. As per discharge assessments above 2. Disposition: Home 3. Condition on discharge, stable and improved. 4. Diet: regular diet 5. Activities: resume normal activities 6. Follow-Up: 1. PCP 2. 7. Medications at the Time of Discharge: Home Medications Medication Instructions Recorded Confirmed Type Metoprolol Tartrate 25 mg PO BID #60 tab 11/29/16 06/29/17 Clinic Cyanocobalamin (Vitamin B-12) 1,000 mcg PO DAILY #90 tablet 03/12/17 06/29/17 Rx [Vitamin B-12] Escitalopram Oxalate [Lexapro] 1 tab PO DAILY #30 tab 03/21/17 06/29/17 Clinic Ondansetron [Zofran Odt] 8 mg PO Q8H #10 tab 05/30/17 06/29/17 Clinic Acetaminophen [Tylenol] 650 mg PO Q6H PRN #1 tab 06/24/17 06/29/17 Rx Amoxicillin/Potassium Clav 1 each PO BID #8 tablet 06/24/17 06/29/17 Rx [Augmentin 875-125 Tablet] Potassium Chloride [Klor-Con] 20 meq PO BID #10 tab 06/24/17 06/29/17 Rx Tramadol HCl 100 mg PO Q6H PRN #25 tab 06/24/17 06/29/17 Rx Amlodipine Besylate 5 mg PO DAILY #30 tablet 06/27/17 06/29/17 Clinic Trazodone HCl 1 tab PO QHS #30 tab 06/27/17 06/29/17 Clinic Ondansetron [Zofran Odt] 4 mg PO TID #10 tab 06/28/17 06/29/17 Clinic 8. Time, care, counseling and coordination of care for this discharge is greater than 30 minutes. Exam - Vitals Vital Signs: Vital Signs Temperature 98.7 F Temperature Source Oral Pulse Rate [Pulse Oximeter] 70 Pulse Rate 69 Respiratory Rate 18 Blood Pressure [Left Arm] 120/64 Pulse Ox 95 Oxygen Flow Rate 0.5 Oxygen Delivery Method Room Air Height 5 ft 3 in Weight 58.604 kg Patient Problems - Patient Problem List (1) Pancreatitis Current Visit: Yes Status: Acute (2) Hypokalemia due to inadequate potassium intake Current Visit: Yes Status: Acute (3) Hypertension Current Visit: No Status: Acute Qualifiers: Qualified Description: Essential hypertension Qualifier Code(s): (I10 ) Essential (primary) hypertension (4) Hypomagnesemia Current Visit: No Status: Acute
== END 2017-07-01 12:07 | disposition home or self-care (01) | DRG 440 ==
LOC: ER 20:07 → MED/SURG 22:30
PROVIDERS: ADMIT Internal Medicine; ATTEND Internal Medicine
DX: K85.20 Alcohol induced acute pancreatitis without necrosis or infection (principal); R73.9 Hyperglycemia, unspecified; E87.6 Hypokalemia; I10 Essential (primary) hypertension; E83.42 Hypomagnesemia
CPT/HCPCS: 36415; 74176; 80053; 80320; 81003; 82150; 83690; 83735; 84703; 85025; 94761; 96361; 96374; 96375; 96376; 99285; J1170; J1650; J2270; J2405; J3475; J3490; J7030

== ENCOUNTER 2017-07-04 01:31 | Emergency (ER) | payer SELFPAY ==
[2017-07-04] MEDS ORDERED: ONDANSETRON 4 MG/2 ML VIAL IVP ONE (01:33)
[2017-07-04] MEDS ORDERED: Ondansetron ODT Tab 4 MG TAB PO ONE (01:33)
[2017-07-04] MEDS ORDERED: Sodium Chloride 0.9% 1,000 ML PRIMARY IV ONE (01:33)
--- NOTE | 2017-07-04 01:38 | PDOC ---
Nausea/Vomiting/Diarrhea HPI - General Chief Complaint: Nausea / Vomiting / Diarrhea Stated Complaint: NAUSEA/VOMITING Date Seen by Provider: 07/04/17 Time Seen by Provider: 01:35 Source: POSITIVE: Patient Exam Limitations: POSITIVE: No limitations Nurse's Notes Reviewed & Considered: Yes - History of Present Illness Initial Comments: Patient comes in today with a chief complaint of nausea and vomiting. Patient with history of pancreatitis related to alcohol abuse comes in tonight with episodes of vomiting and abdominal pain. She's been unable to control her vomiting, she has run out of Zofran. She denies any fever chills or sweats, no diarrhea, no hematuria or dysuria. Body Location Affected: REPORTS: Abdomen Timing: REPORTS: Unknown Duration: Unknown Severity: Moderate Quality: REPORTS: Cramping, "Pain" Abdominal Pain Onset Location: REPORTS: Epigastric Abdominal Pain Radiation: REPORTS: Periumbilical Modifying Factors: improves with: Vomiting Associated Symptoms: REPORTS: Vomiting, Abdominal Pain, Cramping Similar Symptoms Previously: Yes Recent Care Received: REPORTS: Hospitalized - Patient Home Medications Home Medications: Home Medications Metoprolol Tartrate 25 mg PO BID #60 tab 11/29/16 Cyanocobalamin (Vitamin B-12) [Vitamin B-12] 1,000 mcg PO DAILY #90 tablet 03/12 Escitalopram Oxalate [Lexapro] 1 tab PO DAILY #30 tab 03/21/17 Potassium Chloride [Klor-Con] 20 meq PO BID #10 tab 06/24/17 Tramadol HCl 100 mg PO Q6H PRN #25 tab 06/24/17 Amlodipine Besylate 5 mg PO DAILY #30 tablet 06/27/17 Trazodone HCl 1 tab PO QHS #30 tab 06/27/17 Ondansetron [Zofran Odt] 4 mg PO TID #10 tab 06/28/17 - Patient Allergies Allergies/Adverse Reactions: Allergies Allergy/AdvReac Type Severity Reaction Status Date / Time codeine AdvReac HALLUCINATI Verified 06/30/17 18:12 ONS levofloxacin [From Levaquin] AdvReac HALLUCINATI Verified 06/30/17 18:12 ONS oxycodone AdvReac HALLUCINATI Verified 06/30/17 18:12 ONS Past Medical History - heen HEENT History: Other (please comment) Additional HEENT History: WEARS GLASSES. "BULL'S EYE VISION" Cardiovascular History: Hypertension, Other (please comment) Additional Cardiovasular History: PALPITATIONS Respiratory History: Pneumonia, Snoring, Other (please comment) Additional Respiratory History: chronic tobacco use Gastrointestinal History: GERD, Gallbladder Disease, Pancreatitis, Other ( please comment) Additional Gastrointestinal History: Chronic alcoholism. elevated liver enzymes Genitourinary History: Denies History Endocrine History: Denies History Musculoskeletal History: Joint Pain, Other (please comment) Prosthesis or Implant: Yes (BREAST AUGMENTATION) Additional Musculoskeletal History: Pt fell down several stairs and fractured right shoulder. Pt had surgery on shoulder to repair fracture. X2 Neurological History: Seizures, Other (please comment) Additional Neurological History: SEIZURE WITH DETOX Blood Disorders: Denies History Psychiatric History: Depression, Anxiety Disorders, Substance Abuse Additional Psychiatric History: ALCOHOLISM: CHRONIC AND RECURRENT. PANIC DISORDER. PATIENT RECENTLY ATTEMPTED REHAB History of Sexually Transmitted Diseases: No Cancer History: Denies History History of MDRO: Yes Other Type of MDRO: TESTED POSITIVE 2014 FOLLOWED BY 2 NEG SWABS History of Other Communicable Diseases: Yes (MONO, VARICELLA) Alcohol Use: Heavy Substance Use Type: None Previous Surgical History: Yes Type / Date of Surgery: APPENDECTOMY, CHOLECYSTECTOMY, ABDOMINOPLASTY, BREAST AUGMENTATION, Right shoulder surgeryX2 Anesthesia Reactions: No Malignant Hyperthermia: No Significant Family History: Asthma, Heart disease, Cancer, Diabetes, Hypertension Additional Family History: EARLY MENOPAUSE - MOTHER ROS - Limitations ROS Limitations: No Limitations Constitution: REPORTS: Denies Symptoms Cardiovascular: REPORTS: Denies Cardiac Symptoms Respiratory: REPORTS: Denies Resp Symptoms Neurological: REPORTS: Denies Neuro Symptoms Gastrointestinal: REPORTS: Abdominal Pain, Nausea, Vomitting Endocrine: REPORTS: Denies Symptoms Musculoskeletal: REPORTS: Denies MS Symptoms Genitourinary: REPORTS: Denies Symptoms Eyes: REPORTS: Denies Symptoms ENT: REPORTS: Denies Symptoms Skin: REPORTS: Denies Skin Symptoms Lympathic: REPORTS: Denies Lympathic Symptoms Immunologic: POSITIVE: Denies Symptoms Nausea/Vomiting/Diarrhea Exam - General Appearance General Appearance: POSITIVE: Alert, Cooperative, No Evidence of Trauma, Moderate Distress - HEENT HEENT: POSITIVE: Head Inspection Nml, Eyes Inspection Nml, Ears Inspection Nml, Nose Inspection Nml, Oral/Dental Inspect. Nml, Pharynx Inspect. Nml, PERRL, EOMI - Neck Neck: POSITIVE: Supple, Normal Inspection, Non Tender - Respiratory Respiratory: POSITIVE: No Respiratory Distress, Breath Sounds Normal, Chest Non- Tender - Cardiovascular Cardiovascular: POSITIVE: Heart Sounds Normal, Equal Pulses, Strong Pulses, Tachycardia - Chest Chest: POSITIVE: Non Tender - Abdomen Abdomen: Soft: (All Quadrants), Normal Bowel Sounds: (All Quadrants), Tenderness Noted: (All Quadrants) - Back Back: POSITIVE: Normal Inspection - Skin Skin: POSITIVE: Intact, Normal For Race, Warm, Dry, No Rash - Extremities Extremity: Non-Tender: (All Extremities), Normal ROM: (All Extremities), Normal Inspection: (All Extremities), Pelvis Stable: (All Extremities) - Neurological / Psychological Neurological: 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, 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, Motor Normal, Sensation Normal, 5, 6 N/V/D Progress - Results Reviewed by me Lab Results Reviewed: Yes Lab Results:: Laboratory Results 07/04/17 Range/Units 01:45 WBC 10.28 (4.8-10.8) 10^3/uL RBC 3.97 L (4.20-5.40) 10^6/uL Hgb 13.7 (12.0-16.0) g/dL Hct 38.9 (37.0-47.0) % MCV 98.0 (81-99) FL MCH 34.5 H (27-31) PG MCHC 35.2 (33-37) g/dL RDW Std Deviation 48.3 (39-50) fL RDW Coeff of Farzad 13.9 (11.5-14.5) % Plt Count 485 H (140-350) 10*3/uL MPV 9.0 (7.4-12.2) FL Neutrophils % (Manual) 65 (50-80) % Band Neutrophils % 0 (0-10) % Lymphocytes % (Manual) 26 (10-50) % Monocytes % (Manual) 6 (0-12) % Eosinophils % (Manual) 0 (0-8) % Basophils % (Manual) 3 H (0-1) % Metamyelocytes % Not Reportable Myelocytes % Not Reportable Promyelocytes % Not Reportable Blast Cells Not Reportable WBC Morphology Comment Normal morphology (NORM) Plt Morphology Comment Normal morphology (NORM) RBC Morph Comment Normal morphology (NORM) Sodium 138 (135-145) meq/L Potassium 3.9 (3.8-5.2) meq/L Chloride 102 (98-112) meq/L Carbon Dioxide 19 L (23-33) meq/L Anion Gap 17 (5-20) BUN 7 (7-22) mg/dL Creatinine 0.6 (0.50-1.20) mg/dL Estimated GFR > 60 (>60 ml/min/1.73m(2)) BUN/Creatinine Ratio 11.66 (6-20) Glucose 170 H (78-110) mg/dL Calculated Osmolality 287.0 (267-292) mOsm/kg Calcium 11.0 H (8.7-10.7) mg/dL Total Bilirubin 0.6 (0.3-1.2) mg/dL AST 20 (8-39) IU/L ALT 25 (9-52) IU/L Alkaline Phosphatase 86 (38-126) IU/L Total Protein 8.3 H (6.1-8.0) g/dL Albumin 4.9 H (3.5-4.8) g/dL Globulin 3.4 (2.50-4.10) g/dL Albumin/Globulin Ratio 1.40 (1.3-2.0) mg/g Amylase 81 (30-110) U/L Lipase 170 (23-300) IU/L - Patient's Progress Pain Medication Addressed: POSITIVE: No Re-examine Time: 02:43 Status: POSITIVE: Improved MDM / ED Course: Patient was examined, an IV started, blood drawn and sent to the lab for studies , patient received a liter of normal saline, oral Zofran and IV Zofran. Findings: Lipase and amylase are normal, CBC is unremarkable, comprehensive metabolic panel is unremarkable. Assessment: Nausea vomiting related to alcohol abuse. Plan: Discharge home, prescription for Zofran, follow up with primary care physician Tuesday. Patient Care Time - Estimated PCT Patient Care Time (In Minutes): 30 Vital Signs - VS Reviewed Vital Signs Reviewed: Yes Discharge Clinical Impression: Nausea and vomiting in adult patient, Nausea and vomiting Discharge Disposition: Discharged to Home Condition: Stable Patient Instructions Given at Discharge: Acute Nausea and Vomiting (ED)
[2017-07-04 01:50] LABS: HEMATOCRIT 38.9 % (37.0-47.0); HEMOGLOBIN 13.7 g/dL (12.0-16.0); MEAN CORPUSCULAR HEMOGLOBIN 34.5 PG (27-31); MEAN CORPUSCULAR HGB CONC 35.2 g/dL (33-37); RED BLOOD COUNT 3.97 10^6/uL (4.20-5.40)
[2017-07-04 02:01] LABS: BAND NEUTROPHILS % 0 % (0-10); BASOPHILS % (MANUAL) 3 % (0-1); EOSINOPHILS % (MANUAL) 0 % (0-8); LYMPHOCYTES % (MANUAL) 26 % (10-50); MONOCYTES % (MANUAL) 6 % (0-12); NEUTROPHILS % (MANUAL) 65 % (50-80); PLATELET MORPHOLOGY COMMENT NORMAL MORPHOLOGY (NORM); RBC MORPHOLOGY COMMENT NORMAL MORPHOLOGY (NORM); WBC MORPHOLOGY COMMENT NORMAL MORPHOLOGY (NORM)
[2017-07-04 02:08] LABS: BLOOD UREA NITROGEN 7 mg/dL (7-22); BUN/CREATININE RATIO 11.66 (6-20); EST GLOMERULAR FILTRATION > 60 (>60 ml/min/1.73m(2)); LIPASE 170 IU/L (23-300); SERUM ALBUMIN 4.9 g/dL (3.5-4.8)
[2017-07-04 04:39] VITALS: RESP 18; TEMP 98.1
== END 2017-07-04 03:50 | disposition home or self-care (01) ==
LOC: ER 01:31
DX: R11.2 Nausea with vomiting, unspecified (principal); R10.13 Epigastric pain; R10.33 Periumbilical pain
CPT/HCPCS: 80053; 82150; 83690; 85007; 96374; 99283 ×2; J2405; J7030

== ENCOUNTER 2017-12-11 17:40 | Inpatient (IN) ==
[2017-12-11] MEDS ORDERED: ONDANSETRON 4 MG/2 ML VIAL IVP ONE (17:56)
[2017-12-11] MEDS ORDERED: Sodium Chloride 0.9% 1,000 ML PRIMARY IV ONE (17:56)
[2017-12-11] MEDS ORDERED: NORMAL SALINE 10 ML SYRINGE FLUSH IVP PRN ×2 (17:56→22:01)
[2017-12-11] MEDS ORDERED: Pantoprazole Inj 40 MG in Normal Saline Flush 10 ML IVP ONE (17:56)
[2017-12-11 18:37] LABS: BASOPHILS % (AUTO) 0.7 % (0-1); EOSINOPHILS # (AUTO) 0.11 10*3/UL; EOSINOPHILS % (AUTO) 0.8 % (0-8); Hematocrit [HCT] 36.6 % (37.0-47.0); LYMPHOCYTES # (AUTO) 2.24 10*3/uL; MEAN CORPUSCULAR HEMOGLOBIN 33.9 PG (27-31); MEAN CORPUSCULAR HGB CONC 38.3 g/dL (33-37); MEAN CORPUSCULAR VOLUME 88.6 FL (81-99); MEAN PLATELET VOLUME 11.1 FL (7.4-12.2); NEUTROPHILS # (AUTO) 10.88 10*3/UL; NEUTROPHILS % (AUTO) 77.2 % (50-80); RED BLOOD COUNT 4.13 10^6/uL (4.20-5.40)
--- NOTE | 2017-12-11 18:45 | PDOC ---
Abdomen/Flank HPI - General Chief Complaint: Abdomen Pain Stated Complaint: abd pain Date Seen by Provider: 12/11/17 Time Seen by Provider: 17:55 Source: POSITIVE: Patient Exam Limitations: POSITIVE: No limitations Nurse's Notes Reviewed & Considered: Yes - History of Present Illness Initial Comments: The patient is a 47-year-old female who presents to the emergency department with complaints of vomiting and abdominal pain. She has a history of alcohol abuse however his been sober for the past 2 months. She states that recently she has actually been doing fairly well. She did have some upper respiratory symptoms earlier in the week which seemed to be resolving. This morning she woke up and had multiple episodes of nausea and vomiting. She then also developed some epigastric abdominal pain that radiates through to her back. She states that this pain is similar to pain she has experienced with pancreatitis in the past. She denies any fever and has not had any change in bowel movements. She did not have any medication for nausea at home. She is taking ranitidine. - Patient Home Medications Home Medications: Home Medications amlodipine 5 mg tablet 5 mg PO DAILY #30 tab 09/23/17 buspirone 15 mg tablet 15 mg PO BID #60 tab 11/29/17 losartan 100 mg-hydrochlorothiazide 12.5 mg tablet 1 tab PO QDAY #30 tab zolpidem 5 mg tablet 5 mg PO QHS #30 tab 11/29/17 metoprolol tartrate 25 mg tablet 25 mg PO BID #60 tab 12/07/17 - Patient Allergies Allergies/Adverse Reactions: Allergies 3 Allergy/AdvReac Type Severity Reaction Status Date / Time codeine AdvReac HALLUCINATI Verified 12/11/17 17:51 ONS levofloxacin [From Levaquin] AdvReac HALLUCINATI Verified 12/11/17 17:51 ONS oxycodone AdvReac HALLUCINATI Verified 12/11/17 17:51 ONS Past Medical History - heen HEENT History: Other (please comment) Additional HEENT History: WEARS GLASSES. "BULL'S EYE VISION" Cardiovascular History: Hypertension, Other (please comment) Additional Cardiovasular History: PALPITATIONS Respiratory History: Pneumonia, Snoring, Other (please comment) Additional Respiratory History: chronic tobacco use Gastrointestinal History: GERD, Gallbladder Disease, Pancreatitis, Other ( please comment) Additional Gastrointestinal History: Chronic alcoholism. elevated liver enzymes Genitourinary History: Denies History Endocrine History: Denies History Musculoskeletal History: Joint Pain, Other (please comment) Prosthesis or Implant: Yes (BREAST AUGMENTATION) Additional Musculoskeletal History: Pt fell down several stairs and fractured right shoulder. Pt had surgery on shoulder to repair fracture. X2 Neurological History: Seizures, Other (please comment) Additional Neurological History: SEIZURE WITH DETOX Blood Disorders: Denies History Psychiatric History: Depression, Anxiety Disorders, Substance Abuse Additional Psychiatric History: ALCOHOLISM: CHRONIC AND RECURRENT. PANIC DISORDER. PATIENT RECENTLY ATTEMPTED REHAB History of Sexually Transmitted Diseases: No Female Reproductive History: Other (please comment) Additional Female Reproductive History: early menopause Cancer History: Denies History In Past Year Been Physically Harmed or Verbally Threatened: No History of MDRO: Yes Type of MDRO: MRSA Other Type of MDRO: TESTED POSITIVE 2014 FOLLOWED BY 2 NEG SWABS History of Other Communicable Diseases: No (MONO, VARICELLA) Tobacco Use: Current Every Day Smoker Alcohol Use: Heavy In the Past 12 Months, Have Used or Abuse Any Substance: None Previous Surgical History: Yes Type / Date of Surgery: APPENDECTOMY, CHOLECYSTECTOMY, ABDOMINOPLASTY, BREAST AUGMENTATION, Right shoulder surgeryX2 Anesthesia Reactions: No Malignant Hyperthermia: No Significant Family History: Asthma, Heart disease, Cancer, Diabetes, Hypertension Additional Family History: EARLY MENOPAUSE - MOTHER Past Medical History Reviewed: Reviewed - No Changes ROS - Limitations ROS Limitations: No Limitations Constitution: DENIES: Fever Cardiovascular: REPORTS: Denies Cardiac Symptoms Respiratory: REPORTS: Cough Non Productive (Seems to be improving). DENIES: Shortness Of Breath Neurological: REPORTS: Denies Neuro Symptoms Gastrointestinal: REPORTS: Abdominal Pain, Nausea, Vomitting. DENIES: Diarrhea , Black Stools, Bloody Stools Musculoskeletal: REPORTS: Denies MS Symptoms Genitourinary: REPORTS: Denies Symptoms Eyes: REPORTS: Denies Symptoms ENT: REPORTS: Denies Symptoms Skin: DENIES: Rash Abdominal/Flank Pain PE - General Appearance General Appearance: POSITIVE: Alert, Cooperative, No Acute Distress - HEENT HEENT: POSITIVE: Head Inspection Nml, Eyes Inspection Nml, Ears Inspection Nml, Pharynx Inspect. Nml - Neck Neck: POSITIVE: Normal Inspection. NEGATIVE: Lymphadenopathy - Respiratory Respiratory: POSITIVE: No Respiratory Distress, Breath Sounds Normal - Cardiovascular Cardiovascular: POSITIVE: Regular Rate and Rhythm, Heart Sounds Normal Peripheral Pulses: Dorsalis-pedis (R): 2+, Dorsalis-pedis (L): 2+ - Abdomen Abdomen: Soft: (All Quadrants), Denies Tenderness: (All Quadrants), No Distention: (All Quadrants) - Skin Skin: POSITIVE: Intact, No Rash - Extremities Extremity: Normal ROM: (All Extremities), Normal Inspection: (All Extremities) - Neurological Neurological: 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, Motor Normal, Sensation Normal Abdomen Progress - Results Reviewed by me Xrays/CTs/US Reviewed by me: Yes Discussed with Radiologist: Yes Radiology Findings: CT scan of the abdomen and pelvis done without IV contrast does reveal some inflammatory change around the head of the pancreas, no other acute findings per radiologist. Lab Results Reviewed by Me: Yes CBC and BMP: 12/11/17 17:56 12/11/17 22:34 - Patient's Progress MDM / ED Course: An IV was established and the patient did receive 1 L bolus of normal saline as well as Zofran 4 mg IV and Protonix 40 mg IV. Initial blood work revealed a significantly elevated blood sugar at 600. Upon further questioning the patient states that she has had significant increased thirst and urination over the past week or so. She has never been formally treated for diabetes. Because of the elevated blood sugar a venous blood gas was obtained. Her pH was 7.46. Her blood sugar on the venous blood gas it come down to 517 after administration of fluids. Her hemoglobin A1c is significantly elevated at 12.6. The patient also received 5 mg of insulin IV. The patient's white count was also elevated at 14,000 and the patient does have significant abdominal pain. Because of this a CT scan of the abdomen and pelvis was ordered. This was done without IV contrast that she does not have a very good IV site currently. This did show some mild inflammatory change to the head of the pancreas. Her amylase and lipase are normal however she has had chronic and recurrent pancreatitis previously. Findings were discussed with the patient. Decision was made to admit the patient for further treatment. Dr. Viera has agreed to admit the patient. - Consult Counseled: POSITIVE: Patient, RE: Lab Results, RE: Radiology Results, RE: DX, RE : Need for F/U Patient Care Time - Estimated PCT Patient Care Time (In Minutes): 45 Vital Signs - Recent Vital Signs Vital Signs: Vital Signs (Last 8 hours) Temp Pulse Resp BP Pulse Ox 12/11/17 17:53 98.4 F 102 H 18 142/79 97 - VS Reviewed Vital Signs Reviewed: Yes Discharge Clinical Impression: Hyperglycemia, Chronic pancreatitis Discharge Disposition: Admit to Inpatient Condition: Fair Date Decision to Admit to Inpatient: 12/11/17 Time Decision to Admit to Inpatient: 19:40
[2017-12-11 18:49] LABS: BLOOD UREA NITROGEN 15 mg/dL (7-22); BUN/CREATININE RATIO 21.42 (6-20)
[2017-12-11 18:52] LABS: PLATELET MORPHOLOGY COMMENT NORMAL MORPHOLOGY (NORM); RBC MORPHOLOGY COMMENT NORMAL MORPHOLOGY (NORM); WBC MORPHOLOGY COMMENT NORMAL MORPHOLOGY (NORM)
[2017-12-11 19:06] LABS: LIPASE 275 IU/L (23-300); SERUM ALBUMIN 4.7 g/dL (3.5-4.8)
[2017-12-11 19:19] LABS: BILIRUBIN,URINE NEGATIVE (NEG); CLARITY,URINE CLEAR (CLEAR); COLOR,URINE YELLOW (Y); GLUCOSE, URINE (UA) 500 mg/dL (NEG); OCCULT BLOOD,URINE NEGATIVE (NEG); PROTEIN,URINE NEGATIVE (NEG); UROBILINOGEN,URINE 0.2 EU/dL (0.2)
[2017-12-11 19:20] LABS: URINE SAMPLE TYPE CLEAN CATCH URINE
[2017-12-11 19:24] LABS: HEMOGLOBIN A1C 12.87 % (4.2-6.0)
[2017-12-11] MEDS ORDERED: INSULIN REGULAR, HUMAN 100 UNIT/1 ML - 3 ML SUBCUT ONE (19:31)
[2017-12-11 19:32] LABS: VENOUS PH 7.46 (7.32-7.42)
[2017-12-11] MEDS ORDERED: MORPHINE SULFATE 2 MG/1 ML IVP ONE (19:52)
--- NOTE | 2017-12-11 20:16 | DI ---
EXAM: CT Abdomen and Pelvis Without Intravenous Contrast CLINICAL HISTORY: Physician Notes: Tech Comments: Pain TECHNIQUE: Axial computed tomography images of the abdomen and pelvis without intravenous contrast. Coronal and sagittal reformatted images were created and reviewed. COMPARISON: 06/29/17 FINDINGS: Lower thorax: No acute findings. ABDOMEN: Liver: Unremarkable. Gallbladder and bile ducts: Stable small calcification anterolateral of the liver right lobe. Cholecystectomy area No ductal dilation. Pancreas: Pancreatic calcifications from previous pancreatitis. Slight stranding adjacent to the pancreatic head is nonspecific and may be related to scarring or a component of acute pancreatitis. Intermittent pancreatic ductal distention noted throughout its course. Spleen: Unremarkable. No splenomegaly. Adrenals: Unremarkable. No mass. Kidneys and ureters: Nonobstructing 2 mm stone in lower pole the right kidney. 2 left-sided renal stones are present measuring up to 6 mm, nonobstructing. Hyperdense cyst, likely hemorrhagic associated with the left renal upper pole. Stomach and bowel: Unremarkable. No obstruction. No mucosal thickening. Appendix: No findings to suggest acute appendicitis. PELVIS: Bladder: Unremarkable. No stones. Reproductive: Exophytic calcified fibroid or phlebolith posterior to the uterus. ABDOMEN and PELVIS: Intraperitoneal space: Unremarkable. No free air. No significant fluid collection. Bones/joints: Mild degenerative disc space height loss at L5-S1. No acute fracture. No dislocation. Soft tissues: Unremarkable. Vasculature: Atherosclerosis. No abdominal aortic aneurysm. Lymph nodes: Unremarkable. No enlarged lymph nodes. IMPRESSION: 1. Stranding adjacent to the pancreatic head could indicate edema. Correlate for acute pancreatitis. Assessment for necrosis limited without IV contrast. 2. Nonobstructing nephrolithiasis. 3. Other nonacute findings as noted above.
[2017-12-11] MEDS ORDERED: HYDROmorphone 2 MG/1 ML IVP ONE (20:36)
--- NOTE | 2017-12-11 20:40 | PDOC ---
HPI - History of Present Illness Date of Service: 12/11/17 Time of Service: 22:15 Chief Complaint: Abdominal pain the last 3 days and vomiting today. History of Present Illness: This is a 47 years old female with medical history significant for history of hypertension, multiple admissions to our hospital for alcoholism and alcohol induced pancreatitis, history of bipolar disorder she presented to the hospital with history of abdominal pain been going on for 2-3 days felt in the mid abdomen goes to the back mild to moderate in intensity. Today she said she woke up and she vomited multiple times more than 6 times she was unable to keep anything down because of that she came into the ER. Evaluation there revealed the blood sugar of more than 600 and also ketosis. She was given fluids given insulin and was admitted. She had also a CT of the abdomen showed evidence of chronic pancreatitis. It's unclear whether she had also acute pancreatitis on top of it. She was given also morphine and Dilaudid she feels better in terms of the pain itself. No other symptoms. Past Medical History Medical History: 1. Hypertension. 2. tobacco abuse. 3. Alcohol abuse, her pattern was more of a binge drinking pattern she said she quit September 2017. 4. Recurrent pancreatitis. 5. Major depressive disorder versus bipolar disorder, one of the reasons patient states she drinks alcohol. 6. Medical noncompliance. 7. Calcification of the pancreas on CT indicating chronic pancreatitis Surgical History: 1. History of cholecystectomy. 2. Appendectomy. 3. Breast augmentation and tummy tuck. 4. Shoulder surgery Family History: Reviewed an Not Pertinent Pertinent Family History: The patient is adopted but states her biologic mother had diabetes type II. The patient's mother when the patient was 4 years old. Her father is described as healthy. Past Social History: Smokes, she is sober now for two months, lives in [place] with her father. Does not currently work. She states this is largely because of her shoulder. She does have a daughter who is about 20 years old. Tobacco Use: Current Every Day Smoker In the Past 12 Months, Have Used or Abuse Any of the Following Substance: None Alcohol Use: Sober Medication / Allergies Home Medications: Home Medications Medication Instructions Recorded Confirmed Type amlodipine 5 mg tablet 5 mg PO DAILY #30 tab 09/23/17 12/11/17 Rx buspirone 15 mg tablet 15 mg PO BID #60 tab 11/29/17 12/11/17 Rx losartan 100 1 tab PO QDAY #30 tab 11/29/17 12/11/17 Rx mg-hydrochlorothiazide 12.5 mg tablet zolpidem 5 mg tablet 5 mg PO QHS #30 tab 11/29/17 12/11/17 Rx metoprolol tartrate 25 mg tablet 25 mg PO BID #60 tab 12/07/17 12/11/17 Rx Allergies/Adverse Reactions: Allergies 3 Allergy/AdvReac Type Severity Reaction Status Date / Time codeine AdvReac HALLUCINATI Verified 12/11/17 17:51 ONS levofloxacin [From Levaquin] AdvReac HALLUCINATI Verified 12/11/17 17:51 ONS oxycodone AdvReac HALLUCINATI Verified 12/11/17 17:51 ONS Review of Systems - Review of Systems All Systems: Reviewed & No Additional Complaints Except as Stated Exam - General General Appearance: No Acute Distress, Cooperative - Head Head Exam: Normal Inspection, Atraumatic - Eye Eye Exam: POSITIVE: Normal Appearance - ENT ENT Exam: POSITIVE: Normal Exam - Neck Neck Exam: Normal Inspection - Respiratory Respiratory Exam: POSITIVE: Clear to Auscultation - Bilaterally - Cardiovascular Cardiovascular Exam: POSITIVE: RRR - GI/Abdominal GI/Abdominal Exam: POSITIVE: Normal Bowel Sounds, Non Distended, Soft, No Organomegaly Additional GI/Abdominal Exam Details: There is tenderness in the epigastrium present. - Rectal Rectal Exam: POSITIVE: Deferred - External Exam: POSITIVE: Deferred - Extremities Extremities Exam: POSITIVE: Normal Inspection - Back Back Exam: POSITIVE: Normal Inspection - Neurological Neurological Exam: POSITIVE: Alert, Oriented x 3, CN II-XII Intact, Speech Intact / Clear, Moves All Extremities Equally - Psychiatric Psychiatric Exam: POSITIVE: Normal Affect - Integumentary Integumentary Exam: POSITIVE: Dry Results - Labs CBC and BMP: 12/11/17 17:56 12/11/17 22:34 - Imaging Status: Report Reviewed by Me (CT showed 1. Stranding adjacent to the pancreatic head could indicate edema. Correlate for acute pancreatitis. Assessment for necrosis limited without IV contrast. 2. Nonobstructing nephrolithiasis. 3. Pancreatic calcifications from previous pancreatitis.) Assessment and Plan - Patient Problems (1) DKA (diabetic ketoacidoses) Current Visit: Yes Status: Acute Comment: By the time she came into the ICU her blood sugar is down to 295. I think we'll try to see whether we can use subcutaneous insulin and IV fluid for her. if doesn't work will put her on IV insulin. We'll check her chemistry now after that will decide about the fluid type and whether we need to add potassium to it or not. Code(s): E13.10 - Other specified diabetes mellitus with ketoacidosis without coma (2) Hypertension Current Visit: No Status: Chronic Comment: Same medications Code(s): I10 - Essential (primary) hypertension (3) Tobacco abuse Current Visit: No Status: Chronic Comment: will Put her on nicotine patch. Code(s): Z72.0 - Tobacco use (4) Chronic pancreatitis Current Visit: Yes Status: Acute Comment: The diabetes is likely secondary to that. likely she will need to be on insulin. Not sure if there is acute pancreatitis on top of that, if present seems to be mild will try to feed her and see her response. Code(s): K86.1 - Other chronic pancreatitis
[2017-12-11] MEDS ORDERED: DOCUSATE 100 MG CAPSULE PO PRN (22:01)
[2017-12-11] MEDS ORDERED: LIDOCAINE W/ SODIUM BICARB 0.5 ML SYR SUBD PRN (22:01)
[2017-12-11] MEDS ORDERED: ONDANSETRON 4 MG/2 ML VIAL IVP PRN (22:01)
[2017-12-11] MEDS ORDERED: ACETAMINOPHEN 325 MG TABLET PO PRN (22:01)
[2017-12-11] MEDS ORDERED: CALCIUM CARBONATE 500 MG (TUMS) CHEWABLE TABLET PO PRN (22:01)
[2017-12-11] MEDS ORDERED: AmLODIPine Tab 5 MG TABLET PO SCH (22:04)
[2017-12-11] MEDS ORDERED: Metoprolol TARTRATE Tab 25 MG TAB PO SCH (22:04)
[2017-12-11] MEDS ORDERED: NICOTINE 21 MG /DAY PATCH TRANSDERM SCH (22:11)
[2017-12-11] MEDS ORDERED: traMADol 50 MG TABLET PO PRN (22:12)
[2017-12-11] MEDS ORDERED: Sodium Chloride 0.9% 1,000 ML PRIMARY IV SCH (22:15)
[2017-12-11] MEDS ORDERED: Influenza Vacc-Egg Free 17-18 180mcg/0.5ml PF Syringe(18yr+) IM ONE (22:35)
[2017-12-11 22:46] LABS: BLOOD UREA NITROGEN 13 mg/dL (7-22); BUN/CREATININE RATIO 21.66 (6-20)
[2017-12-11] MEDS ORDERED: Influenza 17-18 Vaccine (6mo+) Quad 60mcg/0.5ml PF IM ONE (22:48)
[2017-12-11] MEDS: HYDROmorphone 2 MG/1 ML IVP PRN (22:52)
[2017-12-11] MEDS ORDERED: Insulin Lispro Flexpen 300 UNIT/3 ML INSULN.PEN SUBCUT ONE (23:07)
[2017-12-12 04:56] LABS: BASOPHILS # (AUTO) 0.07 10*3/UL; BASOPHILS % (AUTO) 0.8 % (0-1); EOSINOPHILS % (AUTO) 2.4 % (0-8); LYMPHOCYTES # (AUTO) 2.88 10*3/uL; MEAN CORPUSCULAR HEMOGLOBIN 31.7 PG (27-31); MEAN CORPUSCULAR HGB CONC 35.3 g/dL (33-37); MEAN CORPUSCULAR VOLUME 89.7 FL (81-99); MEAN PLATELET VOLUME 10.9 FL (7.4-12.2); MONOCYTES % (AUTO) 5.9 % (5-15); NEUTROPHILS # (AUTO) 4.81 10*3/UL; NEUTROPHILS % (AUTO) 56.7 % (50-80); RED BLOOD COUNT 3.79 10^6/uL (4.20-5.40)
[2017-12-12 04:58] LABS: PLATELET MORPHOLOGY COMMENT NORMAL MORPHOLOGY (NORM); RBC MORPHOLOGY COMMENT NORMAL MORPHOLOGY (NORM); WBC MORPHOLOGY COMMENT NORMAL MORPHOLOGY (NORM)
[2017-12-12 05:06] LABS: BLOOD UREA NITROGEN 11 mg/dL (7-22); BUN/CREATININE RATIO 18.33 (6-20)
[2017-12-12] MEDS: HYDROmorphone 2 MG/1 ML IVP PRN ×3 (05:53→19:53)
[2017-12-12] MEDS ORDERED: Insulin Lispro Flexpen 300 UNIT/3 ML INSULN.PEN SUBCUT SCH (07:00)
[2017-12-12] MEDS ORDERED: Zolpidem Tab 5 MG TAB PO PRN (07:43)
--- NOTE | 2017-12-12 07:58 | PDOC(PROG) ---
Date and Time of Service: 12/12/2017 8:01 AM Interval History: Subjective Patient feels better except that she is tired. She said that she did receive earlier pain medication doesn't have significant pain now. Vomiting stopped. She did tolerate some broth. Objective : Data - Labs CBC and BMP: 12/12/17 04:25 12/12/17 04:25 Objective : Exam - General General Appearance: No Acute Distress, Cooperative - Head Head Exam: Normal Inspection, Atraumatic - Eye Eye Exam: Normal Appearance - ENT ENT Exam: Normal Exam - Neck Neck Exam: Normal Inspection - Respiratory Respiratory Exam: Clear to Auscultation - Bilaterally - Cardiovascular Cardiovascular Exam: RRR - GI/Abdominal GI/Abdominal Exam: Normal Bowel Sounds, Non Distended, Soft Additional GI/Abdominal Exam Details: There is still tenderness in the mid and epigastric area - Rectal Rectal Exam: Deferred - External Exam: Deferred Exam: Deferred - Extremities Extremities Exam: Normal Inspection - Back Back Exam: Normal Inspection - Neurological Neurological Exam: Alert, Oriented x 3, CN II-XII Intact, Moves All Extremities Equally - Psychiatric Psychiatric Exam: Normal Affect - Integumentary Integumentary Exam: Normal Color Assessment and Plan - Patient Problems (1) DKA (diabetic ketoacidoses) Current Visit: Yes Status: Acute Comment: She did close her gap today. I think will take her out of the ICU. Continue sliding scale. We'll add Lantus tonight. Will cut back on the fluid and maybe stop it later on today. We'll ask the dietitian to talk to her. need to talk to her about the cost of insulin and see which one she can afford. Code(s): E13.10 - Other specified diabetes mellitus with ketoacidosis without coma (2) Hypertension Current Visit: No Status: Chronic Comment: Same med Code(s): I10 - Essential (primary) hypertension (3) Tobacco abuse Current Visit: No Status: Chronic Comment: Continue nicotine patch Code(s): Z72.0 - Tobacco use (4) Chronic pancreatitis Current Visit: Yes Status: Acute Comment: As I said I think diabetes is a result of her chronic pancreatitis. She seemed to tolerate the diet so we'll continue with the same plan. Code(s): K86.1 - Other chronic pancreatitis
[2017-12-12] MEDS ORDERED: ONDANSETRON 4 MG/2 ML VIAL IVP PRN (08:21)
[2017-12-12] MEDS ORDERED: LIDOCAINE W/ SODIUM BICARB 0.5 ML SYR SUBD PRN (08:21)
[2017-12-12] MEDS ORDERED: ACETAMINOPHEN 325 MG TABLET PO PRN (08:21)
[2017-12-12] MEDS ORDERED: DOCUSATE 100 MG CAPSULE PO PRN (08:21)
[2017-12-12] MEDS ORDERED: LOSARTAN 50 MG TABLET PO SCH (09:00)
[2017-12-12] MEDS ORDERED: HYDROCHLOROTHIAZIDE 12.5 MG CAPSULE PO SCH (09:00)
[2017-12-12] MEDS ORDERED: busPIRone HCL 5 MG TABLET PO SCH (09:00)
[2017-12-12] MEDS: NICOTINE 21 MG /DAY PATCH TRANSDERM SCH (09:23)
[2017-12-12] MEDS: HYDROCHLOROTHIAZIDE 12.5 MG CAPSULE PO SCH (09:24)
[2017-12-12] MEDS: busPIRone HCL 5 MG TABLET PO SCH ×2 (09:24→19:59)
[2017-12-12] MEDS: LOSARTAN 50 MG TABLET PO SCH (09:25)
[2017-12-12] MEDS: AmLODIPine Tab 5 MG TABLET PO SCH (09:25)
[2017-12-12] MEDS: Metoprolol TARTRATE Tab 25 MG TAB PO SCH ×2 (09:30→19:59)
[2017-12-12] MEDS: Potassium Chloride Tab 10 MEQ TAB PO SCH ×2 (09:30→19:59)
[2017-12-12] MEDS ORDERED: Influenza 17-18 Vaccine (6mo+) Quad 60mcg/0.5ml PF IM ONE (10:00)
[2017-12-12] MEDS: Insulin Lispro Flexpen 300 UNIT/3 ML INSULN.PEN SUBCUT SCH ×3 (11:29→20:00)
[2017-12-12] MEDS: traMADol 50 MG TABLET PO PRN (16:24)
[2017-12-12] MEDS: CALCIUM CARBONATE 500 MG (TUMS) CHEWABLE TABLET PO PRN (16:25)
[2017-12-12] MEDS ORDERED: Insulin Glargine SoloStar Inj 100 UNIT/ML INSULN.PEN SUBCUT SCH ×2 (21:00)
[2017-12-12] MEDS: Zolpidem Tab 5 MG TAB PO PRN (21:04)
[2017-12-13] MEDS: traMADol 50 MG TABLET PO PRN ×4 (00:50→18:10)
[2017-12-13] MEDS: HYDROmorphone 2 MG/1 ML IVP PRN ×4 (02:01→20:39)
[2017-12-13 05:08] LABS: BLOOD UREA NITROGEN 9 mg/dL (7-22)
[2017-12-13] MEDS: Insulin Lispro Flexpen 300 UNIT/3 ML INSULN.PEN SUBCUT SCH ×4 (07:06→20:39)
--- NOTE | 2017-12-13 07:46 | PDOC(PROG) ---
Date and Time of Service: 12/13/2017 7:46 AM Interval History: Subjective Patient continue to complain from pain in her abdomen, in the mid abdomen and goes to the back. No more vomiting. She is tolerating her diet. Objective : Data - Labs CBC and BMP: 12/12/17 04:25 12/13/17 04:25 Objective : Exam - General General Appearance: No Acute Distress, Cooperative - Head Head Exam: Normal Inspection, Atraumatic - Eye Eye Exam: Normal Appearance - ENT ENT Exam: Normal Exam - Neck Neck Exam: Normal Inspection - Respiratory Respiratory Exam: Clear to Auscultation - Bilaterally - Cardiovascular Cardiovascular Exam: RRR - GI/Abdominal GI/Abdominal Exam: Normal Bowel Sounds, Non Distended, Soft, No Organomegaly Additional GI/Abdominal Exam Details: There is tenderness in the periumbilical area. - Rectal Rectal Exam: Deferred - External Exam: Deferred - Extremities Extremities Exam: Normal Inspection - Back Back Exam: Normal Inspection - Neurological Neurological Exam: Alert, Oriented x 3, CN II-XII Intact, Speech Intact / Clear , Moves All Extremities Equally - Psychiatric Psychiatric Exam: Normal Affect - Integumentary Integumentary Exam: Normal Color Assessment and Plan - Patient Problems (1) DKA (diabetic ketoacidoses) Current Visit: Yes Status: Acute Comment: This is resolved. Blood sugar still not controlled well. We did start her on Lantus last night. This morning blood sugar still elevated will increase her Lantus. Will adjust the Humalog sliding scale also. We'll DC her fluid. Code(s): E13.10 - Other specified diabetes mellitus with ketoacidosis without coma (2) Hypertension Current Visit: No Status: Chronic Comment: Same med Code(s): I10 - Essential (primary) hypertension (3) Tobacco abuse Current Visit: No Status: Chronic Comment: Continue nicotine patch Code(s): Z72.0 - Tobacco use (4) Chronic pancreatitis Current Visit: Yes Status: Acute Comment: I suspect her pain is maybe secondary to chronic pancreatitis. Whether there is a an acute components is hard to say. Her lipase when she came in was normal will recheck it again. She is tolerating diet though no vomiting. I think will watch her another night and may be home tomorrow. Code(s): K86.1 - Other chronic pancreatitis
[2017-12-13] MEDS: Metoprolol TARTRATE Tab 25 MG TAB PO SCH ×2 (08:37→20:38)
[2017-12-13] MEDS: Potassium Chloride Tab 10 MEQ TAB PO SCH ×2 (08:37→20:38)
[2017-12-13] MEDS: HYDROCHLOROTHIAZIDE 12.5 MG CAPSULE PO SCH (08:37)
[2017-12-13] MEDS: busPIRone HCL 5 MG TABLET PO SCH ×2 (08:38→20:38)
[2017-12-13] MEDS: AmLODIPine Tab 5 MG TABLET PO SCH (08:38)
[2017-12-13] MEDS: LOSARTAN 50 MG TABLET PO SCH (08:38)
[2017-12-13] MEDS: NORMAL SALINE 10 ML SYRINGE FLUSH IVP PRN (08:39)
[2017-12-13] MEDS: Pantoprazole Inj 40 MG in Normal Saline Flush 10 ML IVP SCH (08:39)
[2017-12-13] MEDS: NICOTINE 21 MG /DAY PATCH TRANSDERM SCH (08:39)
[2017-12-13] MEDS ORDERED: Insulin Glargine SoloStar Inj 100 UNIT/ML INSULN.PEN SUBCUT SCH (21:00)
[2017-12-13] MEDS: Zolpidem Tab 5 MG TAB PO PRN (21:00)
[2017-12-14] MEDS: traMADol 50 MG TABLET PO PRN (00:25)
[2017-12-14] MEDS: HYDROmorphone 2 MG/1 ML IVP PRN ×5 (02:33→22:28)
[2017-12-14] MEDS: NORMAL SALINE 10 ML SYRINGE FLUSH IVP PRN ×3 (02:34→22:28)
[2017-12-14 05:05] LABS: BLOOD UREA NITROGEN 11 mg/dL (7-22); BUN/CREATININE RATIO 18.33 (6-20)
[2017-12-14] MEDS: Insulin Lispro Flexpen 300 UNIT/3 ML INSULN.PEN SUBCUT SCH ×2 (06:59→11:25)
[2017-12-14] MEDS: LOSARTAN 50 MG TABLET PO SCH (08:25)
[2017-12-14] MEDS: busPIRone HCL 5 MG TABLET PO SCH ×2 (08:25→20:50)
[2017-12-14] MEDS: Potassium Chloride Tab 10 MEQ TAB PO SCH ×2 (08:25→20:51)
[2017-12-14] MEDS: Pantoprazole Inj 40 MG in Normal Saline Flush 10 ML IVP SCH (08:26)
[2017-12-14] MEDS: NICOTINE 21 MG /DAY PATCH TRANSDERM SCH (08:26)
[2017-12-14] MEDS: HYDROCHLOROTHIAZIDE 12.5 MG CAPSULE PO SCH (08:26)
[2017-12-14] MEDS: Metoprolol TARTRATE Tab 25 MG TAB PO SCH ×2 (08:26→20:51)
[2017-12-14] MEDS: AmLODIPine Tab 5 MG TABLET PO SCH (08:26)
[2017-12-14] MEDS ORDERED: INSULIN REGULAR, HUMAN 100 UNIT/1 ML - 3 ML SUBCUT SCH (11:00)
[2017-12-14] MEDS ORDERED: Magnesium Sulfate 2gm (Premix) 2 GM/50 ML BAG IV ONE (11:49)
[2017-12-14] MEDS: CALCIUM CARBONATE 500 MG (TUMS) CHEWABLE TABLET PO PRN (12:29)
--- NOTE | 2017-12-14 14:15 | PDOC(PROG) ---
Interval History: Patient is doing much better than when she came in her sugars well controlled she does have abdominal pain on the left lower quadrant and some in the left upper quadrant Objective : Data - Labs CBC and BMP: 12/12/17 04:25 12/14/17 04:42 Objective : Exam - General General Appearance: Cooperative - Respiratory Respiratory Exam: Clear to Auscultation - Bilaterally, Breathing Non Labored, Normal To Percussion, Normal to Percussion and Palpation - Cardiovascular Cardiovascular Exam: RRR, No Murmur, No Clicks, No Gallops, No Rubs, PMI Non- Displaced - GI/Abdominal Additional GI/Abdominal Exam Details: Left lower quadrant and left upper quadrant pain and no guarding or rebound patient does tense up Assessment and Plan - Patient Problems (1) Chronic pancreatitis Current Visit: Yes Status: Acute Comment: Most likely mild exacerbation with some pain elevation of lipase at 350 consistent with what they call it on imaging we'll keep the patient nothing by mouth and treat her pain Code(s): K86.1 - Other chronic pancreatitis (2) Tobacco abuse Current Visit: No Status: Chronic Code(s): Z72.0 - Tobacco use (3) Hypertension Current Visit: No Status: Chronic Code(s): I10 - Essential (primary) hypertension (4) Hyperosmolar syndrome Current Visit: Yes Status: Acute Code(s): E87.0 - Hyperosmolality and hypernatremia (5) Diabetes mellitus Current Visit: Yes Status: Acute Comment: Patient has no money to afford insulin we have found some insulin for her for the next 2 months she will be receiving 18 units of Lantus +2 units before breakfast lunch and dinner if she eats diabetes education is also helping her as well as social service Code(s): E11.9 - Type 2 diabetes mellitus without complications Qualifiers: Diabetes mellitus type: type 2
[2017-12-14] MEDS ORDERED: Insulin Glargine SoloStar Inj 100 UNIT/ML INSULN.PEN SUBCUT SCH ×2 (14:18→14:20)
[2017-12-14] MEDS: Zolpidem Tab 5 MG TAB PO PRN (20:51)
[2017-12-15] MEDS: HYDROmorphone 2 MG/1 ML IVP PRN ×2 (02:44→07:06)
[2017-12-15 05:09] LABS: BASOPHILS # (AUTO) 0.06 10*3/UL; BASOPHILS % (AUTO) 1.1 % (0-1); BLOOD UREA NITROGEN 13 mg/dL (7-22); BUN/CREATININE RATIO 21.66 (6-20); EOSINOPHILS # (AUTO) 0.18 10*3/UL; EOSINOPHILS % (AUTO) 3.3 % (0-8); Hematocrit [HCT] 36.3 % (37.0-47.0); Hemoglobin [HGB] 12.2 g/dL (12.0-16.0); LIPASE 98 IU/L (23-300); LYMPHOCYTES # (AUTO) 1.45 10*3/uL; MEAN CORPUSCULAR HEMOGLOBIN 31.4 PG (27-31); MEAN CORPUSCULAR HGB CONC 33.6 g/dL (33-37); MEAN CORPUSCULAR VOLUME 93.6 FL (81-99); MEAN PLATELET VOLUME 11.2 FL (7.4-12.2); MONOCYTES # (AUTO) 0.38 10*3/UL (0.3-0.8); MONOCYTES % (AUTO) 6.9 % (5-15); NEUTROPHILS # (AUTO) 3.34 10*3/UL; NEUTROPHILS % (AUTO) 60.9 % (50-80); RED BLOOD COUNT 3.88 10^6/uL (4.20-5.40); SERUM ALBUMIN 3.8 g/dL (3.5-4.8)
[2017-12-15 05:33] LABS: PLATELET MORPHOLOGY COMMENT NORMAL MORPHOLOGY (NORM); RBC MORPHOLOGY COMMENT NORMAL MORPHOLOGY (NORM); WBC MORPHOLOGY COMMENT NORMAL MORPHOLOGY (NORM)
[2017-12-15 06:44] VITALS: BP 125/88; RESP 19; TEMP 97.6; O2SAT 98
[2017-12-15] MEDS: NORMAL SALINE 10 ML SYRINGE FLUSH IVP PRN ×2 (07:08→08:39)
[2017-12-15] MEDS ORDERED: Magnesium Sulfate 2gm (Premix) 2 GM/50 ML BAG IV ONE (07:40)
[2017-12-15] MEDS: Metoprolol TARTRATE Tab 25 MG TAB PO SCH (08:38)
[2017-12-15] MEDS: LOSARTAN 50 MG TABLET PO SCH (08:38)
[2017-12-15] MEDS: busPIRone HCL 5 MG TABLET PO SCH (08:38)
[2017-12-15] MEDS: NICOTINE 21 MG /DAY PATCH TRANSDERM SCH (08:39)
[2017-12-15] MEDS: AmLODIPine Tab 5 MG TABLET PO SCH (08:39)
[2017-12-15] MEDS: Pantoprazole Inj 40 MG in Normal Saline Flush 10 ML IVP SCH (08:39)
[2017-12-15] MEDS: Potassium Chloride Tab 10 MEQ TAB PO SCH (08:39)
[2017-12-15] MEDS ORDERED: POTASSIUM CHLORIDE 20 MEQ TAB PO SCH (09:00)
--- NOTE | 2017-12-15 10:30 | DCSUMMARY ---
Hospitalization Summary Hospital Course: Final Discharge Diagnosis: Current Visit Problems Problem Status Onset Code DKA (diabetic ketoacidoses) Acute E13.10 Chronic pancreatitis Acute K86.1 Hyperglycemia Acute R73.9 Hyperosmolar syndrome Acute E87.0 Diabetes mellitus Acute E11.9 Diagnostic Data, Laboratory Data, and Procedures of Signifigance: Abnormal Lab Results (Last 24 Hours) Range/Units 12/15/17 12/15/17 04:00 04:00 RBC (4.20-5.40) 10^6/uL 3.88 L Hct (37.0-47.0) % 36.3 L MCH (27-31) PG 31.4 H Baso % (Auto) (0-1) % 1.1 H Potassium (3.8-5.2) meq/L 3.6 L BUN/Creatinine Ratio (6-20) 21.66 H Glucose (78-110) mg/dL 207 H Magnesium (1.6-2.4) mg/dL 1.5 L AST (8-39) IU/L 206 H ALT (9-52) IU/L 200 H D Alkaline Phosphatase (38-126) IU/L 239 H History and Physical pertinent to Admission: Past Medical History Medical History: 1. Hypertension. 2. tobacco abuse. 3. Alcohol abuse, her pattern was more of a binge drinking pattern she said she quit September 2017. 4. Recurrent pancreatitis. 5. Major depressive disorder versus bipolar disorder, one of the reasons patient states she drinks alcohol. 6. Medical noncompliance. 7. Calcification of the pancreas on CT indicating chronic pancreatitis Surgical History: 1. History of cholecystectomy. 2. Appendectomy. 3. Breast augmentation and tummy tuck. 4. Shoulder surgery Family History: Reviewed an Not Pertinent Pertinent Family History: The patient is adopted but states her biologic mother had diabetes type II. The patient's mother when the patient was 4 years old. Her father is described as healthy. Past Social History: Smokes, she is sober now for two months, lives in [place] with her father. Does not currently work. She states this is largely because of her shoulder. She does have a daughter who is about 20 years old. Tobacco Use: Current Every Day Smoker Course of Hospitalization: Is a very nice 47-year-old female for past medical history significant for hypertension and multiple admission for her chronic alcoholism and alcohol- induced pancreatitis she is now sober and has not drank in over a year presents to the hospital with abdominal pain with nausea and vomiting with some ketosis and her blood sugar of 600 patient was treated with IV fluids and insulin this was stabilized also CT scan of the abdomen showed evidence of chronic pancreatitis as well as possible acute Pain was around 350 patient was kept nothing by mouth lipase normalized pain is resolved at present time she tolerated her food. Also her diabetes which is new onset is been stabilized with 18 units of Lantus at night and she will be getting 2 units of Humalog before breakfast lunch and dinner. We have found the patient samples as she cannot afford her insulin or the test strips. This is why she will only be checking sugars in the morning and having scheduled to units before meals once she is able to afford or be enrolled in Medicaid her primary care physician might request the to check sugars before meals with more coverage she will follow-up with her primary care physician. Case was discussed with social service dietitian and nurse and patient On the date of discharge, the patient was examined: Gen.: No acute distress, alert, nontoxic Heart: Regular rate and rhythm, no murmurs, clicks, gallops, or rubs Lungs: Clear to auscultation bilaterally, breathing is nonlabored Abdomen/GI: Normal tones on auscultation, soft, nontender, nondistended Musculoskeletal/extremities: No clubbing, cyanosis, or edema Vitals reviewed and are listed below Vital Signs (24 hrs) Temp Pulse Resp BP Pulse Ox 12/15/17 06:44 97.6 F 85 19 125/88 98 12/15/17 04:02 97.9 F 77 18 123/73 96 12/15/17 01:00 96.2 F L 76 16 124/74 94 12/14/17 20:49 97.9 F 91 16 162/91 95 12/14/17 17:00 98 F 81 18 146/87 96 12/14/17 12:25 98.2 F 76 18 121/73 97 Assessment and Plan: 1. As per discharge assessments above 2. Disposition: Home 3. Condition on discharge, stable and improved. 4. Diet: Low carbohydrate diet 5. Activities: resume normal activities 6. Follow-Up: 1. PCP 2. Dr. Mcallister 7. Medications at the Time of Discharge: Home Medications 3 Medication Instructions Recorded Confirmed Type amlodipine 5 mg tablet 5 mg PO DAILY #30 tab 09/23/17 12/11/17 Rx buspirone 15 mg tablet 15 mg PO BID #60 tab 11/29/17 12/11/17 Rx losartan 100 1 tab PO QDAY #30 tab 11/29/17 12/11/17 Rx mg-hydrochlorothiazide 12.5 mg tablet zolpidem 5 mg tablet 5 mg PO QHS #30 tab 11/29/17 12/11/17 Rx metoprolol tartrate 25 mg tablet 25 mg PO BID #60 tab 12/07/17 12/11/17 Rx Insulin Glargine SoloStar Inj 18 unit SUBCUT BEDTIME insuln.pen 12/15/17 Rx Lantus SoloStar Inj Insulin Lispro Inj HumaLOG Inj 2 unit SUBCUT AC BK DIN #1 vial 12/15/17 Rx Potassium Chloride Klor-Con 10 meq PO BID tab 12/15/17 Rx 8. Time, care, counseling and coordination of care for this discharge is greater than 30 minutes. Exam - Vitals Vital Signs: Vital Signs Temperature 97.6 F Temperature Source Temporal Artery Scan Pulse Rate [Telemetry] 76 Pulse Rate [Pulse Oximeter] 85 Pulse Rate 88 Respiratory Rate 19 Blood Pressure [Left Arm] 125/88 Blood Pressure 164/87 Pulse Ox 98 Oxygen Flow Rate 98 Oxygen Delivery Method Room Air Height 5 ft 3 in Weight 125 lb 3.2 oz Patient Problems - Patient Problem List (1) Chronic pancreatitis Current Visit: Yes Status: Acute Code(s): K86.1 - Other chronic pancreatitis Category: Medical (2) Tobacco abuse Current Visit: No Status: Chronic Comment: Pre-contemplative Code(s): Z72.0 - Tobacco use Category: Medical (3) Hypertension Current Visit: No Status: Chronic Code(s): I10 - Essential (primary) hypertension Category: Medical (4) Hyperosmolar syndrome Current Visit: Yes Status: Acute Code(s): E87.0 - Hyperosmolality and hypernatremia Category: Medical (5) Diabetes mellitus Current Visit: Yes Status: Acute Code(s): E11.9 - Type 2 diabetes mellitus without complications Qualifiers: Diabetes mellitus type: type 2 Category: Medical
== END 2017-12-15 11:42 | disposition home or self-care (01) | DRG 638 ==
LOC: ER 17:40 → ICU 19:52 → MED/SURG 12-12 07:45
PROVIDERS: ADMIT Internal Medicine; ATTEND Internal Medicine

== ENCOUNTER 2017-12-28 02:05 | Inpatient (IN) ==
[2017-12-28] MEDS ORDERED: NORMAL SALINE 10 ML SYRINGE FLUSH IVP PRN ×3 (02:18→15:38)
[2017-12-28] MEDS ORDERED: Sodium Chloride 0.9% 1,000 ML PRIMARY IV ONE ×2 (02:18→03:14)
[2017-12-28] MEDS ORDERED: ONDANSETRON 4 MG/2 ML VIAL IVP ONE ×2 (02:18→05:19)
[2017-12-28 02:40] LABS: BASOPHILS # (AUTO) 0.03 10*3/UL; BASOPHILS % (AUTO) 0.4 % (0-1); EOSINOPHILS # (AUTO) 0.01 10*3/UL; EOSINOPHILS % (AUTO) 0.1 % (0-8); Hematocrit [HCT] 38.8 % (37.0-47.0); Hemoglobin [HGB] 14.1 g/dL (12.0-16.0); LYMPHOCYTES # (AUTO) 1.48 10*3/uL; MEAN CORPUSCULAR HGB CONC 36.3 g/dL (33-37); MEAN PLATELET VOLUME 9.8 FL (7.4-12.2); MONOCYTES # (AUTO) 0.27 10*3/UL (0.3-0.8); MONOCYTES % (AUTO) 3.8 % (5-15); NEUTROPHILS # (AUTO) 5.38 10*3/UL; NEUTROPHILS % (AUTO) 74.7 % (50-80); PLATELET MORPHOLOGY COMMENT NORMAL MORPHOLOGY (NORM); RBC MORPHOLOGY COMMENT NORMAL MORPHOLOGY (NORM); RED BLOOD COUNT 4.41 10^6/uL (4.20-5.40); WBC MORPHOLOGY COMMENT NORMAL MORPHOLOGY (NORM)
[2017-12-28 02:53] LABS: BUN/CREATININE RATIO 12.85 (6-20); SERUM ALBUMIN 5.7 g/dL (3.5-4.8)
[2017-12-28 03:11] LABS: VENOUS PH 7.49 (7.32-7.42)
[2017-12-28] MEDS ORDERED: Glucagon Inj Vial 1 MG/ML VIAL IM PRN ×4 (03:12→15:38)
[2017-12-28] MEDS ORDERED: DEXTROSE 50%-WATER SYRINGE 50 ML SYRINGE IVP PRN ×5 (03:12→15:38)
[2017-12-28] MEDS ORDERED: Insulin Regular Inj 100 UNIT in Sodium Chloride 0.9% 99 ML IV ONE (03:12)
[2017-12-28] MEDS ORDERED: DEXTROSE 31 GM GEL PO PRN ×4 (03:12→15:38)
[2017-12-28] MEDS ORDERED: MORPHINE SULFATE 4 MG/1 ML IVP ONE (03:36)
[2017-12-28] MEDS ORDERED: MORPHINE SULFATE 4 MG/1 ML ONE (03:37)
--- NOTE | 2017-12-28 03:40 | PDOC ---
Nausea/Vomiting/Diarrhea HPI - General Chief Complaint: Nausea / Vomiting / Diarrhea Stated Complaint: NAUSEA AND VOMITING X 3 DAYS Date Seen by Provider: 12/28/17 Time Seen by Provider: 03:33 - History of Present Illness Initial Comments: This is a 47-year-old woman known to myself from previous emergency department visits who presents to the emergency department today with nausea vomiting and abdominal discomfort. She has known history of chronic pancreatitis and at her last hospitalization was diagnosed with insulin-dependent diabetes. She had been taking her insulin but started to feel sick so stopped taking it because she was concerned about taking her insulin when she wasn't eating. She beginning more and more sick. Now she is very dehydrated vomiting frequently feeling very poorly and presented to the emergency department for management. - Patient Home Medications Home Medications: Home Medications amlodipine 5 mg tablet 5 mg PO DAILY #30 tab 09/23/17 buspirone 15 mg tablet 15 mg PO BID #60 tab 11/29/17 losartan 100 mg-hydrochlorothiazide 12.5 mg tablet 1 tab PO QDAY #30 tab zolpidem 5 mg tablet 5 mg PO QHS #30 tab 11/29/17 metoprolol tartrate 25 mg tablet 25 mg PO BID #60 tab 12/07/17 Insulin Glargine SoloStar Inj [Lantus SoloStar Inj] 18 unit SUBCUT BEDTIME insuln.pen 12/15/17 Insulin Lispro Inj [HumaLOG Inj] 2 unit SUBCUT AC BK DIN #1 vial 12/15/17 Potassium Chloride [Klor-Con] 10 meq PO BID tab 12/15/17 - Patient Allergies Allergies/Adverse Reactions: Allergies 3 Allergy/AdvReac Type Severity Reaction Status Date / Time codeine AdvReac HALLUCINATI Verified 12/28/17 02:33 ONS levofloxacin [From Levaquin] AdvReac HALLUCINATI Verified 12/28/17 02:33 ONS oxycodone AdvReac HALLUCINATI Verified 12/28/17 02:33 ONS Past Medical History - heen HEENT History: Other (please comment) Additional HEENT History: WEARS GLASSES. "BULL'S EYE VISION" Cardiovascular History: Hypertension, Other (please comment) Additional Cardiovasular History: PALPITATIONS Respiratory History: Pneumonia, Snoring, Other (please comment) Additional Respiratory History: chronic tobacco use Gastrointestinal History: GERD, Gallbladder Disease, Pancreatitis, Other ( please comment) Additional Gastrointestinal History: Chronic alcoholism. elevated liver enzymes Genitourinary History: Denies History Endocrine History: Denies History Musculoskeletal History: Joint Pain, Other (please comment) Prosthesis or Implant: Yes (BREAST AUGMENTATION) Additional Musculoskeletal History: Pt fell down several stairs and fractured right shoulder. Pt had surgery on shoulder to repair fracture. X2 Neurological History: Seizures, Other (please comment) Additional Neurological History: SEIZURE WITH DETOX Blood Disorders: Denies History Psychiatric History: Depression, Anxiety Disorders, Substance Abuse Additional Psychiatric History: ALCOHOLISM: CHRONIC AND RECURRENT. PANIC DISORDER. PATIENT RECENTLY ATTEMPTED REHAB History of Sexually Transmitted Diseases: No Cancer History: Denies History History of MDRO: Yes Other Type of MDRO: TESTED POSITIVE 2014 FOLLOWED BY 2 NEG SWABS History of Other Communicable Diseases: No (MONO, VARICELLA) Alcohol Use: Heavy In the Past 12 Months, Have Used or Abuse Any Substance: None Previous Surgical History: Yes Type / Date of Surgery: APPENDECTOMY, CHOLECYSTECTOMY, ABDOMINOPLASTY, BREAST AUGMENTATION, Right shoulder surgeryX2 Anesthesia Reactions: No Malignant Hyperthermia: No Significant Family History: Asthma, Heart disease, Cancer, Diabetes, Hypertension Additional Family History: EARLY MENOPAUSE - MOTHER Past Medical History Reviewed: Reviewed - No Changes ROS - Limitations ROS Limitations: No Limitations Constitution: REPORTS: Weakness, Recent Illness Cardiovascular: REPORTS: Denies Cardiac Symptoms Respiratory: REPORTS: Denies Resp Symptoms Neurological: REPORTS: Denies Neuro Symptoms Nausea/Vomiting/Diarrhea Exam - General Appearance General Appearance: POSITIVE: Alert, Cooperative - HEENT HEENT: POSITIVE: Head Inspection Nml - Respiratory Respiratory: POSITIVE: No Respiratory Distress, Breath Sounds Normal - Cardiovascular Cardiovascular: POSITIVE: Regular Rate and Rhythm - Abdomen Additional Abdominal Details: Mild diffuse abdominal tenderness hyperactive bowel tones - Back Back: POSITIVE: Normal Inspection - Skin Skin: POSITIVE: Intact, Dry - Neurological / Psychological Neurological: POSITIVE: 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, Oriented X3 N/V/D Progress - Results Reviewed by me Lab Results Reviewed by Me: Yes CBC and BMP: 12/28/17 02:25 18 02:25 - Patient's Progress MDM / ED Course: This patient admits to not using her insulin really much at all lately. She has DKA with an anion gap of 31 and blood sugars above 300 substantial dehydration hyponatremia hypokalemia elevated calcium. She is started on insulin drip and given a couple liters of IV fluids started on 20 mEq potassium IV replacement and her case is discussed with hospitalist who agrees to accept her for admission. Patient Care Time - Estimated PCT Patient Care Time (In Minutes): 30 Vital Signs - VS Reviewed Vital Signs Reviewed: Yes Discharge Clinical Impression: DKA (diabetic ketoacidoses) Qualifiers: Diabetes mellitus type: due to underlying condition Diabetes mellitus complication detail: without coma Qualified Code(s): E08.10 - Diabetes mellitus due to underlying condition with ketoacidosis without coma Discharge Disposition: Admit to Inpatient Condition: Good Follow Up With: KITTY LAGUNA [Primary Care Provider] - Date Decision to Admit to Inpatient: 12/28/17 Time Decision to Admit to Inpatient: 03:46
[2017-12-28] MEDS ORDERED: D5-NS + 20mEq KCL 1,000 ML PRIMARY IV SCH (05:15)
[2017-12-28] MEDS ORDERED: HYDROmorphone 2 MG/1 ML ONE (05:21)
[2017-12-28] MEDS ORDERED: HYDROmorphone 2 MG/1 ML IVP PRN ×2 (05:26→15:38)
[2017-12-28 05:51] LABS: BUN/CREATININE RATIO 14.54 (6-20); SERUM ALBUMIN 5.1 g/dL (3.5-4.8)
[2017-12-28] MEDS ORDERED: ONDANSETRON 4 MG/2 ML VIAL IVP PRN ×2 (06:44→15:38)
[2017-12-28] MEDS ORDERED: Insulin Regular Inj 100 UNIT in Sodium Chloride 0.9% 99 ML IV SCH (06:44)
[2017-12-28] MEDS ORDERED: LIDOCAINE W/ SODIUM BICARB 0.5 ML SYR SUBD PRN ×2 (06:44→15:38)
[2017-12-28 07:32] LABS: BUN/CREATININE RATIO 14.54 (6-20)
--- NOTE | 2017-12-28 07:45 | PDOC ---
HPI - History of Present Illness Date of Service: 01/04/18 Time of Service: 08:00 Chief Complaint: Nausea vomiting abdominal pain 3-4 days duration History of Present Illness: This is a 47 years old female with the multiple admission to our hospital for Pancreatitis, and alcohol related problems who was recently diagnosed with diabetes she was discharge beginning of this month home on Lantus and Humalog. She said she started to feel sick so she didn't eat and she stopped giving herself insulin. Doesn't sound like she checked her blood sugar was as the machine was also not working she said. Because her symptoms continued to worsen she came into the ER [facility] childhood [facility] and was found to have DKA. She was given fluids, given Insulin and was admitted. She feels better now compared to when she came in. Past Medical History Medical History: 1. Hypertension. 2. tobacco abuse. 3. Alcohol abuse, her pattern was more of a binge drinking pattern she said she quit September 2017. 4. Recurrent pancreatitis. 5. Major depressive disorder versus bipolar disorder, one of the reasons patient states she drinks alcohol. 6. Medical noncompliance. 7. Calcification of the pancreas on CT indicating chronic pancreatitis Surgical History: 1. History of cholecystectomy. 2. Appendectomy. 3. Breast augmentation and tummy tuck. 4. Shoulder surgery Family History: Reviewed an Not Pertinent Pertinent Family History: The patient is adopted but states her biologic mother had diabetes type II. The patient's mother when the patient was 4 years old. Her father is described as healthy. Past Social History: Smokes, she is sober now for two months, lives in [place] with her father. Does not currently work. She states this is largely because of her shoulder. She does have a daughter who is about 20 years old. Tobacco Use: Current Every Day Smoker Do you dip or chew tobacco: No In the Past 12 Months, Have Used or Abuse Any of the Following Substance: None Alcohol Use: Sober Medication / Allergies Home Medications: Home Medications 3 Medication Instructions Recorded Confirmed Type amlodipine 5 mg tablet 5 mg PO DAILY #30 tab 09/23/17 12/28/17 Rx buspirone 15 mg tablet 15 mg PO BID #60 tab 11/29/17 12/28/17 Rx losartan 100 1 tab PO QDAY #30 tab 11/29/17 12/28/17 Rx mg-hydrochlorothiazide 12.5 mg tablet zolpidem 5 mg tablet 5 mg PO QHS #30 tab 11/29/17 12/28/17 Rx metoprolol tartrate 25 mg tablet 25 mg PO BID #60 tab 12/07/17 12/28/17 Rx Insulin Glargine SoloStar Inj 18 unit SUBCUT BEDTIME insuln.pen 12/15/17 Rx [Lantus SoloStar Inj] Insulin Lispro Inj [HumaLOG Inj] 2 unit SUBCUT AC BK DIN #1 vial 12/15/17 Rx Potassium Chloride [Klor-Con] 10 meq PO BID tab 12/15/17 12/28/17 Rx Allergies/Adverse Reactions: Allergies 3 Allergy/AdvReac Type Severity Reaction Status Date / Time codeine AdvReac HALLUCINATI Verified 12/29/17 06:27 ONS levofloxacin [From Levaquin] AdvReac HALLUCINATI Verified 12/29/17 06:27 ONS oxycodone AdvReac HALLUCINATI Verified 12/29/17 06:27 ONS Review of Systems - Review of Systems All Systems: Reviewed & No Additional Complaints Except as Stated Exam - Vitals Vital Signs: Vital Signs Temperature 98.4 F Temperature Source Oral Pulse Rate [Apical] 90 Pulse Rate [Pulse Oximeter 88 Left] Pulse Rate 102 Respiratory Rate 16 Blood Pressure [Left Arm] 122/75 Blood Pressure 139/82 Pulse Ox 94 Oxygen Delivery Method Room Air Height 5 ft 3 in Weight 125 lb - General General Appearance: No Acute Distress, Cooperative - Head Head Exam: Normal Inspection, Atraumatic - Eye Eye Exam: POSITIVE: Normal Appearance - ENT ENT Exam: POSITIVE: Normal Exam - Neck Neck Exam: Normal Inspection - Respiratory Respiratory Exam: POSITIVE: Clear to Auscultation - Bilaterally - Cardiovascular Cardiovascular Exam: POSITIVE: RRR - GI/Abdominal GI/Abdominal Exam: POSITIVE: Normal Bowel Sounds, Non Tender, Non Distended, Soft, No Organomegaly - Rectal Rectal Exam: POSITIVE: Deferred - External Exam: POSITIVE: Deferred - Extremities Extremities Exam: POSITIVE: Normal Inspection - Back Back Exam: POSITIVE: Normal Inspection - Neurological Neurological Exam: POSITIVE: Alert, Oriented x 3, Normal Gait, CN II-XII Intact , Speech Intact / Clear, Moves All Extremities Equally - Psychiatric Psychiatric Exam: POSITIVE: Normal Affect - Integumentary Integumentary Exam: POSITIVE: Normal Color Results - Labs CBC and BMP: 02/14/18 02:25 12/29/17 04:13 Assessment and Plan - Patient Problems (1) DKA (diabetic ketoacidoses) Current Visit: Yes Status: Acute Comment: Initially she was giving fluids and was started on insulin drip in the ER, her blood sugar dropped to 53 so we stopped the drip. We put her on D5 water to raise her blood sugar and is coming up. I think probably can switch her to D5 water and will put her on sliding scale. Her gap seemed to be improving. We'll continue monitoring labs. Did explain to her that she needs to be on insulin and she needs check her blood sugar more often when she is sick. Code(s): E13.10 - Other specified diabetes mellitus with ketoacidosis without coma Qualifiers: Diabetes mellitus type: due to underlying condition Diabetes mellitus complication detail: without coma Qualified Code(s): E08.10 - Diabetes mellitus due to underlying condition with ketoacidosis without coma (2) Hypertension Current Visit: No Status: Chronic Comment: Will hold medication except the metoprolol. Code(s): I10 - Essential (primary) hypertension (3) Hypercalcemia Current Visit: Yes Status: Acute Comment: Her calcium when she came in was elevated this may be secondary to dehydration we'll check PTH level. Code(s): E83.52 - Hypercalcemia (4) Hypokalemia Current Visit: Yes Status: Acute Comment: Will put her on potassium replacement Code(s): E87.6 - Hypokalemia
[2017-12-28] MEDS ORDERED: Potassium Chloride Tab 10 MEQ TAB PO SCH ×2 (09:00→21:00)
[2017-12-28] MEDS ORDERED: NICOTINE 21 MG /DAY PATCH TRANSDERM SCH (09:00)
[2017-12-28] MEDS ORDERED: Patch Removal PATCH TRANSDERM SCH (09:00)
[2017-12-28] MEDS ORDERED: Metoprolol TARTRATE Tab 25 MG TAB PO SCH (09:00)
[2017-12-28] MEDS ORDERED: Pantoprazole Inj 40 MG in Normal Saline Flush 10 ML IVP SCH (09:00)
[2017-12-28] MEDS ORDERED: Insulin Sliding Scale Protocol SUBCUT ONE (09:22)
[2017-12-28] MEDS ORDERED: Insulin Lispro Flexpen 300 UNIT/3 ML INSULN.PEN SUBCUT SCH (11:00)
[2017-12-28 11:13] LABS: BLOOD UREA NITROGEN 17 mg/dL (7-22); BUN/CREATININE RATIO 18.88 (6-20)
[2017-12-28] MEDS ORDERED: busPIRone HCL 5 MG TABLET PO ONE (14:45)
[2017-12-28 15:47] LABS: BLOOD UREA NITROGEN 16 mg/dL (7-22); BUN/CREATININE RATIO 17.77 (6-20)
[2017-12-28] MEDS: Insulin Lispro Flexpen 300 UNIT/3 ML INSULN.PEN SUBCUT SCH ×2 (16:51→20:05)
[2017-12-28] MEDS ORDERED: Magnesium Sulfate 2gm (Premix) 2 GM/50 ML BAG IV ONE (19:35)
[2017-12-28] MEDS ORDERED: PHOS-NAK 1 EACH POWD.PACK PO ONE (19:36)
[2017-12-28] MEDS: busPIRone HCL 5 MG TABLET PO SCH (20:02)
[2017-12-28] MEDS: Metoprolol TARTRATE Tab 25 MG TAB PO SCH (20:03)
[2017-12-28] MEDS: Zolpidem Tab 5 MG TAB PO SCH ×2 (20:03→21:33)
[2017-12-28] MEDS ORDERED: busPIRone HCL 5 MG TABLET PO SCH (21:00)
[2017-12-28] MEDS ORDERED: Insulin Glargine SoloStar Inj 100 UNIT/ML INSULN.PEN SUBCUT SCH ×2 (21:00)
[2017-12-29 05:20] LABS: BLOOD UREA NITROGEN 11 mg/dL (7-22); BUN/CREATININE RATIO 15.71 (6-20)
[2017-12-29] MEDS: Insulin Lispro Flexpen 300 UNIT/3 ML INSULN.PEN SUBCUT SCH ×4 (07:36→21:19)
[2017-12-29] MEDS ORDERED: Benzocaine/Menthol 6mg/10mg 1 EACH LOZENGE PO PRN (08:14)
--- NOTE | 2017-12-29 08:25 | PDOC(PROG) ---
Date and Time of Service: 12/29/2017 8:20 AM Interval History: Subjective She feels better in terms of vomiting as it is stopped. However she has some sore throat because of all the vomiting. She did have some diarrhea last night but not today. Blood sugars seem to be better controlled. Denying other symptoms. Objective : Data - Labs CBC and BMP: 12/28/17 02:25 12/29/17 04:13 Objective : Exam - General General Appearance: No Acute Distress, Cooperative - Head Head Exam: Normal Inspection - Eye Eye Exam: Normal Appearance - ENT ENT Exam: Normal Exam - Neck Neck Exam: Normal Inspection - Respiratory Respiratory Exam: Clear to Auscultation - Bilaterally - Cardiovascular Cardiovascular Exam: RRR - GI/Abdominal GI/Abdominal Exam: Normal Bowel Sounds, Non Tender, Non Distended, Soft, No Organomegaly - Rectal Rectal Exam: Deferred - External Exam: Deferred - Extremities Extremities Exam: Normal Inspection - Back Back Exam: Normal Inspection - Neurological Neurological Exam: Alert, Oriented x 3, CN II-XII Intact, Speech Intact / Clear , Moves All Extremities Equally - Psychiatric Psychiatric Exam: Normal Affect - Integumentary Integumentary Exam: Normal Color Assessment and Plan - Patient Problems (1) DKA (diabetic ketoacidoses) Current Visit: Yes Status: Acute Comment: Seems to be resolving. Continue subcutaneous sliding insulin. Increase her Lantus to 12 units at night. We'll cut back on her fluid more today. Maybe home tomorrow. Code(s): E13.10 - Other specified diabetes mellitus with ketoacidosis without coma Qualifiers: Diabetes mellitus type: due to underlying condition Diabetes mellitus complication detail: without coma Qualified Code(s): E08.10 - Diabetes mellitus due to underlying condition with ketoacidosis without coma (2) Hypertension Current Visit: No Status: Chronic Comment: continue metoprolol will restart amlodipine. Code(s): I10 - Essential (primary) hypertension (3) Hypercalcemia Current Visit: Yes Status: Acute Comment: Seems to be better. PTH level was sent. Maybe secondary to dehydration Code(s): E83.52 - Hypercalcemia (4) Hypokalemia Current Visit: Yes Status: Acute Comment: Potassium still low will continue replacement. Code(s): E87.6 - Hypokalemia
[2017-12-29] MEDS: NICOTINE 21 MG /DAY PATCH TRANSDERM SCH (08:50)
[2017-12-29] MEDS: POTASSIUM CHLORIDE 20 MEQ TAB PO SCH ×2 (08:51→21:21)
[2017-12-29] MEDS: ACETAMINOPHEN 325 MG TABLET PO PRN ×2 (08:52→21:20)
[2017-12-29] MEDS: AmLODIPine Tab 5 MG TABLET PO SCH (08:52)
[2017-12-29] MEDS: Metoprolol TARTRATE Tab 25 MG TAB PO SCH ×2 (08:52→21:22)
[2017-12-29] MEDS: Patch Removal PATCH TRANSDERM SCH (08:53)
[2017-12-29] MEDS: busPIRone HCL 5 MG TABLET PO SCH ×2 (08:53→21:22)
[2017-12-29] MEDS ORDERED: Pantoprazole Inj 40 MG in Normal Saline Flush 10 ML IVP SCH (09:00)
[2017-12-29] MEDS ORDERED: Insulin Glargine SoloStar Inj 100 UNIT/ML INSULN.PEN SUBCUT SCH (21:00)
[2017-12-29] MEDS: Zolpidem Tab 5 MG TAB PO SCH ×2 (21:21→22:21)
[2017-12-30 05:30] LABS: BLOOD UREA NITROGEN 12 mg/dL (7-22)
[2017-12-30] MEDS ORDERED: MAGNESIUM OXIDE 400 MG TABLET PO SCH (07:00)
[2017-12-30] MEDS: Insulin Lispro Flexpen 300 UNIT/3 ML INSULN.PEN SUBCUT SCH (07:27)
--- NOTE | 2017-12-30 08:12 | DCSUMMARY ---
Hospitalization Summary Admit Date: 12/28/2017 Discharge Date: 12/30/17 Hospital Course: Discharge diagnoses 1. DKA resolved 2. Hypercalcemia resolved, probably secondary to dehydration, PTH is pending 3. Hypertension 4. Hypokalemia resolved 5. Acute renal failure resolved 6. History of alcoholism 7. Chronic pancreatitis Hospital course This is a 47 years old female with history of multiple admission to our hospital for pancreatitis before and also alcohol related problems who was recently diagnosed with diabetes she was discharged beginning of this month home on Lantus and Humalog. She said she started to feel sick so she didn't eat and she stopped giving herself the insulin. When she came in it did not look that she was checking her blood sugar as her machine she said was not working. Because of her symptoms continued to worsen she came in to the ER. Her symptoms included nausea vomiting and diarrhea with abdominal pain. In the ER she was found to be in DKA she was given fluid and insulin was admitted. By the time I saw her she did receive some fluid so she was feeling better. Exam was remarkable for some dehydration. Initially she was started on IV insulin drip then later on was switched to subcutaneous insulin. Gradually there was improvement in her symptoms. On the day of discharge she was doing much better she was on sliding scale insulin and lantus we thought that she could be discharged home and follow-up with her primary. Her bicarbonate remained 18 on the day of discharge she was feeling better and she was asymptomatic this need to be repeated later on as an outpatient to see where she stands. Also she did have hypercalcemia when she came in we thought this may be secondary to dehydration we did send a PTH which need to be followed up later on as an outpatient. Laboratory Results 12/28/17 12/30/17 12/30/17 Range/Units 03:47 04:21 04:21 Sodium 137 (135-145) meq/L Potassium 3.7 L (3.8-5.2) meq/L Chloride 104 (98-112) meq/L Carbon Dioxide 18 L (23-33) meq/L Anion Gap 15 (5-20) BUN 12 (7-22) mg/dL Creatinine 0.6 (0.50-1.20) mg/dL Estimated GFR > 60 (>60 ml/min/1.73m(2)) BUN/Creatinine Ratio 20.00 (6-20) Glucose 129 H (78-110) mg/dL Calculated Osmolality 285.0 (267-292) mOsm/kg Calcium 9.1 (8.7-10.7) mg/dL Ionized Calcium 6.14 H mg/dL Magnesium 1.6 (1.6-2.4) mg/dL Discharge instruction Diet regular Activity as started Medications Home Medications amlodipine 5 mg tablet 5 mg PO DAILY #30 tab 09/23/17 [Rx Confirmed 12/28/17] buspirone 15 mg tablet 15 mg PO BID #60 tab 11/29/17 [Rx Confirmed 12/28/17] losartan 100 mg-hydrochlorothiazide 12.5 mg tablet 1 tab PO QDAY #30 tab [Rx Confirmed 12/28/17] zolpidem 5 mg tablet 5 mg PO QHS #30 tab 11/29/17 [Rx Confirmed 12/28/17] metoprolol tartrate 25 mg tablet 25 mg PO BID #60 tab 12/07/17 [Rx Confirmed ] Insulin Glargine SoloStar Inj [Lantus SoloStar Inj] 12 unit SUBCUT BEDTIME insuln.pen 12/30/17 [Rx] Insulin Lispro Flexpen Inj [HumaLOG Flexpen Inj] 0 - 14 unit SUBCUT AC HS insuln.pen 12/30/17 [Rx] Potassium Chloride [Klor-Con] 10 meq PO BID #30 tab 12/30/17 [Rx] Follow-up with PCP in 1-2 weeks Condition at discharge was stable for discharge Exam - Vitals Vital Signs: Vital Signs Temperature 97.8 F Temperature Source Temporal Artery Scan Pulse Rate [Apical] 78 Pulse Rate [Pulse Oximeter 75 Left] Pulse Rate 88 Respiratory Rate 22 Blood Pressure [Left Arm] 162/107 Blood Pressure 139/82 Pulse Ox 98 Oxygen Delivery Method Room Air Height 5 ft 3 in Weight 125 lb 3.2 oz - General General Appearance: No Acute Distress, Cooperative - Head Head Exam: Normal Inspection - Eye Eye Exam: POSITIVE: Normal Appearance - ENT ENT Exam: POSITIVE: Normal Exam - Neck Neck Exam: Normal Inspection - Respiratory Respiratory Exam: POSITIVE: Clear to Auscultation - Bilaterally - Cardiovascular Cardiovascular Exam: POSITIVE: RRR - GI/Abdominal GI/Abdominal Exam: POSITIVE: Normal Bowel Sounds, Non Tender, Non Distended, Soft, No Organomegaly - Rectal Rectal Exam: POSITIVE: Deferred - External Exam: POSITIVE: Deferred Exam: POSITIVE: Deferred - Extremities Extremities Exam: POSITIVE: Normal Inspection - Back Back Exam: POSITIVE: Normal Inspection - Neurological Neurological Exam: POSITIVE: Alert, Oriented x 3, CN II-XII Intact, Speech Intact / Clear, Moves All Extremities Equally - Psychiatric Psychiatric Exam: POSITIVE: Normal Affect - Integumentary Integumentary Exam: POSITIVE: Normal Color Patient Problems - Patient Problem List (1) DKA (diabetic ketoacidoses) Status: Acute Code(s): E13.10 - Other specified diabetes mellitus with ketoacidosis without coma Qualifiers: Diabetes mellitus type: due to underlying condition Diabetes mellitus complication detail: without coma Qualified Code(s): E08.10 - Diabetes mellitus due to underlying condition with ketoacidosis without coma Category: Medical (2) Hypertension Status: Chronic Code(s): I10 - Essential (primary) hypertension Category: Medical (3) Hypercalcemia Status: Acute Code(s): E83.52 - Hypercalcemia Category: Medical (4) Hypokalemia Status: Acute Code(s): E87.6 - Hypokalemia Category: Medical
[2017-12-30] MEDS: NICOTINE 21 MG /DAY PATCH TRANSDERM SCH (08:28)
[2017-12-30] MEDS: Patch Removal PATCH TRANSDERM SCH (08:29)
[2017-12-30] MEDS: POTASSIUM CHLORIDE 20 MEQ TAB PO SCH (08:29)
[2017-12-30] MEDS: busPIRone HCL 5 MG TABLET PO SCH (08:29)
[2017-12-30] MEDS: Metoprolol TARTRATE Tab 25 MG TAB PO SCH (08:30)
[2017-12-30] MEDS: AmLODIPine Tab 5 MG TABLET PO SCH (08:30)
[2017-12-30 08:53] VITALS: BP 148/106; RESP 16; TEMP 98.5; O2SAT 95
[2017-12-30] MEDS ORDERED: HYDROCHLOROTHIAZIDE 12.5 MG CAPSULE PO SCH (09:00)
[2017-12-30] MEDS ORDERED: LOSARTAN 50 MG TABLET PO SCH (09:00)
== END 2017-12-30 09:36 | disposition home or self-care (01) | DRG 639 ==
LOC: ER 02:05 → ICU 03:48 → MED/SURG 15:21
PROVIDERS: ADMIT Internal Medicine; ATTEND Internal Medicine

== ENCOUNTER 2018-02-21 10:03 | Inpatient (IN) ==
[2018-02-21] MEDS ORDERED: ONDANSETRON 4 MG/2 ML VIAL IVP ONE (10:25)
[2018-02-21] MEDS ORDERED: Sodium Chloride 0.9% 1,000 ML PRIMARY IV ONE ×2 (10:25→14:34)
[2018-02-21] MEDS ORDERED: Pantoprazole Inj 40 MG in Normal Saline Flush 10 ML IVP ONE (10:25)
[2018-02-21] MEDS ORDERED: NORMAL SALINE 10 ML SYRINGE FLUSH IVP PRN ×3 (10:25→18:53)
[2018-02-21] MEDS ORDERED: Sodium Chloride 0.9% 1,000 ML, Magnesium Sulfate 2gm (Premix) 50 ML with Multivitamin I... IV ONE ×5 (10:27)
[2018-02-21] MEDS ORDERED: LORazepam 2 MG/1 ML VIAL IVP ONE (10:28)
[2018-02-21 10:49] LABS: BASOPHILS # (AUTO) 0.03 10*3/UL; BASOPHILS % (AUTO) 0.4 % (0-1); EOSINOPHILS # (AUTO) 0.02 10*3/UL; EOSINOPHILS % (AUTO) 0.3 % (0-8); Hematocrit [HCT] 39.6 % (37.0-47.0); Hemoglobin [HGB] 14.2 g/dL (12.0-16.0); LYMPHOCYTES # (AUTO) 1.63 10*3/uL; MEAN CORPUSCULAR HEMOGLOBIN 33.4 PG (27-31); MEAN CORPUSCULAR HGB CONC 35.9 g/dL (33-37); MEAN CORPUSCULAR VOLUME 93.2 FL (81-99); MEAN PLATELET VOLUME 8.8 FL (7.4-12.2); MONOCYTES # (AUTO) 0.36 10*3/UL (0.3-0.8); MONOCYTES % (AUTO) 5.3 % (5-15); NEUTROPHILS # (AUTO) 4.78 10*3/UL; NEUTROPHILS % (AUTO) 69.9 % (50-80); RED BLOOD COUNT 4.25 10^6/uL (4.20-5.40)
[2018-02-21 10:53] LABS: PLATELET MORPHOLOGY COMMENT NORMAL MORPHOLOGY (NORM); RBC MORPHOLOGY COMMENT NORMAL MORPHOLOGY (NORM); WBC MORPHOLOGY COMMENT NORMAL MORPHOLOGY (NORM)
[2018-02-21 11:13] LABS: BLOOD UREA NITROGEN 16 mg/dL (7-22)
[2018-02-21 11:25] LABS: LIPASE 1081 IU/L (23-300)
[2018-02-21] MEDS ORDERED: Sodium Chloride 0.9% 1,000 ML with Multivitamin Inj 10 ML, Thiamine Inj 100 MG, Folic A... IV ONE ×5 (11:30)
[2018-02-21 12:58] LABS: VENOUS PH 7.32 (7.32-7.42)
[2018-02-21] MEDS ORDERED: HYDROmorphone 2 MG/1 ML IVP ONE (13:36)
[2018-02-21 14:07] LABS: BILIRUBIN,URINE SMALL (NEG); CLARITY,URINE CLEAR (CLEAR); COLOR,URINE YELLOW (Y); GLUCOSE, URINE (UA) NEGATIVE (NEG); OCCULT BLOOD,URINE SMALL (NEG); PROTEIN,URINE 100 mg/dl (NEG); URINE SPECIFIC GRAVITY - MAN 1.025; UROBILINOGEN,URINE 0.2 EU/dL (0.2)
[2018-02-21 14:19] LABS: SQUAMOUS EPITHELIAL CELL,UR RARE; URINE CASTS RARE; URINE SAMPLE TYPE CLEAN CATCH URINE; URINE SPECIFIC GRAVITY - MAN 1.025; WBC,URINE 0-1
[2018-02-21 14:20] LABS: AMPHETAMINE SCREEN NEGATIVE (NEG); CANNABINOID SCREEN,URINE NEGATIVE (NEG); COCAINE SCREEN NEGATIVE (NEG); METHADONE URINE SCREEN NEGATIVE (NEG); METHAMPHETAMINES SCREEN,URINE NEGATIVE (NEG); OPIATE SCREEN,URINE POSITIVE (NEG)
[2018-02-21] MEDS ORDERED: ONDANSETRON 4 MG/2 ML VIAL IVP PRN (14:34)
[2018-02-21] MEDS ORDERED: LIDOCAINE W/ SODIUM BICARB 0.5 ML SYR SUBD PRN ×2 (14:34→18:53)
[2018-02-21] MEDS ORDERED: Sodium Chloride 0.9% 1,000 ML PRIMARY IV SCH (14:34)
[2018-02-21] MEDS ORDERED: ACETAMINOPHEN 325 MG TABLET PO PRN ×2 (14:34→18:53)
[2018-02-21] MEDS ORDERED: CALCIUM CARBONATE 500 MG (TUMS) CHEWABLE TABLET PO PRN ×2 (14:34→18:53)
[2018-02-21] MEDS ORDERED: DOCUSATE 100 MG CAPSULE PO PRN ×2 (14:34→18:53)
[2018-02-21] MEDS ORDERED: HYDROmorphone 2 MG/1 ML IVP PRN (14:34)
[2018-02-21] MEDS ORDERED: NICOTINE 21 MG /DAY PATCH TRANSDERM ONE (15:30)
--- NOTE | 2018-02-21 17:42 | PDOC ---
HPI - History of Present Illness Date of Service: 02/21/18 Time of Service: 17:36 Chief Complaint: Abdominal pain with nausea and vomiting History of Present Illness: This is a well-known 47 year old female with chronic alcoholism, hypertension, recently diagnosed diabetes mellitus (probably type I), amongst other medical issues who comes in stating that she recently relapsed and has been drinking about a bottle of vodka a day for the last couple of weeks until yesterday. She started developing shakes, abdominal pain, and severe vomiting. She came in for evaluation today, was found to be acidotic although it was thought this was compensated. But she does have ketones on her urinalysis. She is quite ketotic on exam and has a fruity odor to her breath. She is alert, but has withdrawal symptoms as well. Her blood Actos found to be 45. She has abdominal tenderness that is epigastric in nature. She has had some nausea and vomiting. Pain medications have helped her pain feel better. She is gotten ample normal saline here including a bolus on the floor, but as I evaluated the patient and felt that ICU might be a better fit for her to manage her acidosis and alcohol withdrawal. She is not sure what caused her to drink alcohol again , but this is generally the case in questioning this patient in the past as well. She states that when she stops drinking alcohol, she goes to bed withdrawal and develops vomiting right away. She denies any fevers. No blood in the stool and no blood in the vomit. Past Medical History Medical History: 1. Hypertension. 2. tobacco abuse. 3. Alcohol abuse, her pattern is typically binge drinking. 4. Recurrent pancreatitis. 5. Major depressive disorder versus bipolar disorder, one of the reasons patient states she drinks alcohol. 6. Medical noncompliance. 7. Calcification of the pancreas on CT indicating chronic pancreatitis. 8. Diabetes mellitus Surgical History: 1. History of cholecystectomy. 2. Appendectomy. 3. Breast augmentation and tummy tuck. 4. Shoulder surgery Family History: Reviewed an Not Pertinent Pertinent Family History: The patient is adopted but states her biologic mother had diabetes type II. The patient's mother when the patient was 4 years old. She states her father is developing memory problems now. Past Social History: Smokes, lives in [place] with her father. Does not currently work. Binge drinking alcohol pattern. She does have a daughter who is about 20 years old. Tobacco Use: Heavy Tobacco Smoker In the Past 12 Months, Have Used or Abuse Any of the Following Substance: None Alcohol Use: Heavy Medication / Allergies Home Medications: Home Medications 3 Medication Instructions Recorded Confirmed Type amlodipine 5 mg tablet 5 mg PO DAILY #30 tab 09/23/17 02/21/18 Rx buspirone 15 mg tablet 15 mg PO BID #60 tab 11/29/17 02/21/18 Rx losartan 100 1 tab PO QDAY #30 tab 11/29/17 02/21/18 Rx mg-hydrochlorothiazide 12.5 mg tablet metoprolol tartrate 25 mg tablet 25 mg PO BID #60 tab 12/07/17 02/21/18 Rx Potassium Chloride [Klor-Con] 10 meq PO BID #30 tab 12/30/17 02/21/18 Rx clonazepam 0.5 mg tablet 0.5 mg PO BID #60 tab 01/19/18 02/21/18 Rx insulin glargine (U-100) 100 15 unit SUBCUT BEDTIME ml 01/19/18 02/21/18 History unit/mL (3 mL) subcutaneous pen zolpidem 10 mg tablet 10 mg PO QHS #30 tab 01/30/18 02/21/18 Rx LORazepam Tab [Ativan Tab] 1 mg PO Q6H PRN #10 tab 02/11/18 02/21/18 Rx Ondansetron Odt [Zofran Odt] 8 mg PO Q6H PRN #10 tab.rapdis 02/11/18 02/21/18 Rx pen needle, diabetic 30 gauge x 0 unit .ROUTE .MEDSUPPLY 02/11/18 02/21/18 History 1/3" insulin lispro (U-100) 100 unit/mL 0 - 14 unit SUBCUT AC HS #3 ml 02/15/1802/21 Rx subcutaneous pen pen needle, diabetic, safety 30 0 ea .ROUTE .MEDSUPPLY 02/21/18 02/21/18 History gauge x 1/3" Allergies/Adverse Reactions: Allergies 3 Allergy/AdvReac Type Severity Reaction Status Date / Time codeine AdvReac HALLUCINATI Verified 02/21/18 10:12 ONS levofloxacin [From Levaquin] AdvReac HALLUCINATI Verified 02/21/18 10:12 ONS oxycodone AdvReac HALLUCINATI Verified 02/21/18 10:12 ONS Review of Systems - Respiratory Respiratory: REPORTS: Negative System Review - Cardiovascular Cardiovascular: REPORTS: Negative System Review - Gastrointestinal Gastrointestinal / Abdominal: REPORTS: Nausea, Vomiting, Diarrhea, Abdominal Pain, See HPI - Neurological Neurologic: REPORTS: Negative System Review Exam - Vitals Vital Signs: Vital Signs Temperature 98.8 F Temperature Source Oral Pulse Rate [Pulse Oximeter] 102 Pulse Rate 106 Respiratory Rate 18 Blood Pressure [Left Arm] 153/87 Blood Pressure 135/99 Pulse Ox 98 Oxygen Delivery Method Room Air Height 5 ft 3 in Weight 127 lb 8 oz - General General Appearance: No Acute Distress, Cooperative Additional General Exam Details: Anxious, tremors bilaterally - Head Head Exam: Normal Inspection, Normocephalic, Atraumatic - Eye Eye Exam: POSITIVE: No Scleral Icterus - ENT ENT Exam: POSITIVE: Mucous Membranes Dry - Neck Neck Exam: Normal Inspection, No Tenderness, No Lymphadenopathy, No Thyromegaly - Respiratory Respiratory Exam: POSITIVE: Clear to Auscultation - Bilaterally, Breathing Non Labored, Normal to Percussion and Palpation - Cardiovascular Cardiovascular Exam: POSITIVE: No Murmur, No Clicks, No Gallops, No Rubs, Tachycardia, No JVD - GI/Abdominal GI/Abdominal Exam: POSITIVE: Normal Bowel Sounds, Non Distended, Soft Additional GI/Abdominal Exam Details: Tender to palpation - Rectal Rectal Exam: POSITIVE: Deferred - External Exam: POSITIVE: Deferred Exam: POSITIVE: Deferred - Extremities Extremities Exam: POSITIVE: No Clubbing Present, No Edema Present, No Cyanosis Present - Back Back Exam: POSITIVE: No CVA Tenderness - Neurological Neurological Exam: POSITIVE: Alert, Oriented x 3, No Facial Droop, Speech Intact / Clear, Moves All Extremities Equally - Psychiatric Psychiatric Exam: POSITIVE: Anxious - Central Line Examination Central Line Present on Admission: No Results - Labs CBC and BMP: 02/21/18 10:44 02/21/18 10:44 Additional Lab Results: Laboratory Results 02/21/18 02/21/18 02/21/18 Range/Units 10:44 10:44 10:44 WBC 6.84 (4.8-10.8) 10^3/uL RBC 4.25 (4.20-5.40) 10^6/uL Hgb 14.2 (12.0-16.0) g/dL Hct 39.6 (37.0-47.0) % MCV 93.2 (81-99) FL MCH 33.4 H (27-31) PG MCHC 35.9 (33-37) g/dL RDW Std Deviation 45.6 (39-50) fL RDW Coeff of Farzad 13.7 (11.5-14.5) % Plt Count 166 (140-350) 10*3/uL MPV 8.8 (7.4-12.2) FL Immature Gran % (Auto) 0.3 (0-5) % Neut % (Auto) 69.9 (50-80) % Lymph % (Auto) 23.8 (10-50) % [place] % (Auto) 5.3 (5-15) % Eos % (Auto) 0.3 (0-8) % Baso % (Auto) 0.4 (0-1) % Immature Gran # (Auto) 0.02 10*3/UL Neut # (Auto) 4.78 10*3/UL Lymph # (Auto) 1.63 10*3/uL [place] # (Auto) 0.36 (0.3-0.8) 10*3/UL Eos # (Auto) 0.02 10*3/UL Baso # (Auto) 0.03 10*3/UL WBC Morphology Comment Normal morphology (NORM) Plt Morphology Comment Normal morphology (NORM) RBC Morph Comment Normal morphology (NORM) VBG pH (7.32-7.42) VBG pCO2 (45-55) mmHg VBG HCO3 (22-26) mmol/L VBG Base Excess (-2-2) MMOL/L Sodium 139 (135-145) meq/L Potassium 3.7 L (3.8-5.2) meq/L Chloride 94 L (98-112) meq/L Carbon Dioxide 7 L (23-33) meq/L Anion Gap 38 H (5-20) BUN 16 (7-22) mg/dL Creatinine 0.8 (0.50-1.20) mg/dL Estimated GFR > 60 (>60 ml/min/1.73m(2)) BUN/Creatinine Ratio 20.00 (6-20) Glucose 170 H (78-110) mg/dL Calculated Osmolality 292.0 (267-292) mOsm/kg Lactic Acid 3.5 H (0.70-2.10) MMOL/L Calcium 11.6 H (8.7-10.7) mg/dL Magnesium 1.5 L (1.6-2.4) mg/dL Total Bilirubin 1.7 H (0.3-1.2) mg/dL AST 34 (8-39) IU/L ALT 40 (9-52) IU/L Alkaline Phosphatase 123 (38-126) IU/L Total Protein 9.6 H (6.1-8.0) g/dL Albumin 6.0 H (3.5-4.8) g/dL Globulin 3.6 (2.50-4.10) g/dL Albumin/Globulin Ratio 1.60 (1.3-2.0) mg/g Amylase 119 H (30-110) U/L Lipase 1081 H* (23-300) IU/L Ur Collection Type Urine Color (Y) Urine Clarity (CLEAR) Urine pH (5.0-8.5) Ur Specific [place] (1.005-1.030) U Specif Grav (Refrac) Urine Protein (NEG) mg/dl Urine Glucose (UA) (NEG) mg/dL Urine Ketones (NEG) Urine Occult Blood (NEG) Urine Nitrate (NEG) Urine Bilirubin (NEG) Urine Urobilinogen (0.2) EU/dL Ur Leukocyte Esterase (NEG) Urine RBC (NONE) /hpf Urine WBC (NONE) Ur Squamous Epith Cells (NONE) Ur Renal Epithelial Cell (NONE) Urine Crystals Urine Bacteria (NONE) Urine Casts (NONE) Urine Mucus (NONE) Urine Trichomonas (NONE) Urine Yeast (NONE) Ur Culture Indicated? Urine HCG, Qual Urine Opiates Screen (NEG) Ur Buprenorphine (NEG) Ur Oxycodone Screen (NEG) Urine Methadone Screen (NEG) Ur Propoxyphene Screen (NEG) Barbiturate Screen (NEG) U Tricyclic Antidepress (NEG) Phencyclidine Screen (NEG) Amphetamines Screen (NEG) U Methamphetamines Scrn (NEG) Benzodiazepines Screen (NEG) Cocaine Screen (NEG) U Marijuana (THC) Screen (NEG) Serum Alcohol 45 H (0-10) mg/dL 02/21/18 02/21/18 02/21/18 Range/Units 12:07 14:00 14:00 WBC (4.8-10.8) 10^3/uL RBC (4.20-5.40) 10^6/uL Hgb (12.0-16.0) g/dL Hct (37.0-47.0) % MCV (81-99) FL MCH (27-31) PG MCHC (33-37) g/dL RDW Std Deviation (39-50) fL RDW Coeff of Farzad (11.5-14.5) % Plt Count (140-350) 10*3/uL MPV (7.4-12.2) FL Immature Gran % (Auto) (0-5) % Neut % (Auto) (50-80) % Lymph % (Auto) (10-50) % [place] % (Auto) (5-15) % Eos % (Auto) (0-8) % Baso % (Auto) (0-1) % Immature Gran # (Auto) 10*3/UL Neut # (Auto) 10*3/UL Lymph # (Auto) 10*3/uL [place] # (Auto) (0.3-0.8) 10*3/UL Eos # (Auto) 10*3/UL Baso # (Auto) 10*3/UL WBC Morphology Comment (NORM) Plt Morphology Comment (NORM) RBC Morph Comment (NORM) VBG pH 7.32 (7.32-7.42) VBG pCO2 21 L (45-55) mmHg VBG HCO3 11 L (22-26) mmol/L VBG Base Excess -15 L (-2-2) MMOL/L Sodium (135-145) meq/L Potassium (3.8-5.2) meq/L Chloride (98-112) meq/L Carbon Dioxide (23-33) meq/L Anion Gap (5-20) BUN (7-22) mg/dL Creatinine (0.50-1.20) mg/dL Estimated GFR (>60 ml/min/1.73m(2)) BUN/Creatinine Ratio (6-20) Glucose (78-110) mg/dL Calculated Osmolality (267-292) mOsm/kg Lactic Acid (0.70-2.10) MMOL/L Calcium (8.7-10.7) mg/dL Magnesium (1.6-2.4) mg/dL Total Bilirubin (0.3-1.2) mg/dL AST (8-39) IU/L ALT (9-52) IU/L Alkaline Phosphatase (38-126) IU/L Total Protein (6.1-8.0) g/dL Albumin (3.5-4.8) g/dL Globulin (2.50-4.10) g/dL Albumin/Globulin Ratio (1.3-2.0) mg/g Amylase (30-110) U/L Lipase (23-300) IU/L Ur Collection Type Clean catch urine Urine Color Yellow (Y) Urine Clarity Clear (CLEAR) Urine pH 6.0 (5.0-8.5) Ur Specific [place] 1.025 (1.005-1.030) U Specif Grav (Refrac) 1.025 1.025 Urine Protein 100 A (NEG) mg/dl Urine Glucose (UA) Negative (NEG) mg/dL Urine Ketones >=160 (NEG) Urine Occult Blood Small H (NEG) Urine Nitrate Negative (NEG) Urine Bilirubin Small (NEG) Urine Urobilinogen 0.2 (0.2) EU/dL Ur Leukocyte Esterase Negative (NEG) Urine RBC 1-3 (NONE) /hpf Urine WBC 0-1 (NONE) Ur Squamous Epith Cells Rare (NONE) Ur Renal Epithelial Cell None (NONE) Urine Crystals None Urine Bacteria None (NONE) Urine Casts Rare (NONE) Urine Mucus Few (NONE) Urine Trichomonas None (NONE) Urine Yeast None (NONE) Ur Culture Indicated? Culture not set Urine HCG, Qual Negative Urine Opiates Screen Positive H (NEG) Ur Buprenorphine Negative (NEG) Ur Oxycodone Screen Negative (NEG) Urine Methadone Screen Negative (NEG) Ur Propoxyphene Screen Negative (NEG) Barbiturate Screen Negative (NEG) U Tricyclic Antidepress Negative (NEG) Phencyclidine Screen Negative (NEG) Amphetamines Screen Negative (NEG) U Methamphetamines Scrn Negative (NEG) Benzodiazepines Screen Positive H (NEG) Cocaine Screen Negative (NEG) U Marijuana (THC) Screen Negative (NEG) Serum Alcohol (0-10) mg/dL Assessment and Plan - Patient Problems (1) DKA (diabetic ketoacidoses) Current Visit: Yes Status: Acute Code(s): E13.10 - Other specified diabetes mellitus with ketoacidosis without coma Qualifiers: Diabetes mellitus type: type 1 Diabetes mellitus complication detail: without coma Qualified Code(s): E10.10 - Type 1 diabetes mellitus with ketoacidosis without coma (2) Acute pancreatitis Current Visit: Yes Status: Acute Code(s): K85.90 - Acute pancreatitis without necrosis or infection, unspecified Qualifiers: Pancreatitis type: alcohol induced (3) Type 1 diabetes mellitus Current Visit: Yes Status: Chronic Code(s): E10.9 - Type 1 diabetes mellitus without complications Qualifiers: Diabetes mellitus complication status: without complication Qualified Code( s): E10.9 - Type 1 diabetes mellitus without complications (4) Tobacco abuse Current Visit: Yes Status: Chronic Code(s): Z72.0 - Tobacco use (5) Chronic alcohol abuse Current Visit: Yes Status: Chronic Code(s): F10.10 - Alcohol abuse, uncomplicated - Assessment / Plan Additional Assessment/Plan Details: Patient submitted, but we'll transfer to the ICU and run D5 half-normal with potassium and insulin to help clear out ketones that are notable in the urine. If they're in the urine they are likely in serum. Check electrolytes again at 5 and replace potassium and phosphorus as necessary [facility] protocol Frequent glucose monitoring for problems on insulin drip. We'll check electrolytes again later this evening and again in the morning. Benzodiazepines for withdrawal. Precedex if necessary. She does not have an anion gap, she still has acidosis. I gave her normal saline bolus. Blood sugars look good here initially, but they will get higher if not clearing the acid levels
[2018-02-21] MEDS ORDERED: DEXTROSE 50%-WATER SYRINGE 50 ML SYRINGE IVP PRN (18:53)
[2018-02-21] MEDS ORDERED: DEXTROSE 31 GM GEL PO PRN (18:53)
[2018-02-21] MEDS ORDERED: LORazepam 1 mg tab (ETOH withdrawal) PO PRN (18:53)
[2018-02-21] MEDS ORDERED: Glucagon Inj Vial 1 MG/ML VIAL IM PRN (18:53)
[2018-02-21] MEDS ORDERED: Insulin Regular Inj 100 UNIT in Sodium Chloride 0.9% 99 ML IV SCH (18:53)
[2018-02-21] MEDS: LORazepam Inj(ETOH withdrawal) 2 MG/ML VIAL IVP PRN ×2 (19:10→23:38)
[2018-02-21] MEDS: ONDANSETRON 4 MG/2 ML VIAL IVP PRN ×2 (19:10→23:38)
[2018-02-21] MEDS: D5-1/2NS + 20mEq KCL 1,000 ML PRIMARY IV SCH (19:38)
[2018-02-21 19:39] LABS: BLOOD UREA NITROGEN 12 mg/dL (7-22); BUN/CREATININE RATIO 17.14 (6-20)
[2018-02-21] MEDS: ClonazePAM Tab 1 MG TABLET PO SCH (20:52)
[2018-02-21] MEDS: busPIRone HCL 5 MG TABLET PO SCH (20:52)
[2018-02-21] MEDS: Metoprolol TARTRATE Tab 25 MG TAB PO SCH (20:52)
[2018-02-21] MEDS: ZOLPIDEM 10 MG TABLET PO SCH (20:52)
[2018-02-21] MEDS ORDERED: Metoprolol TARTRATE Tab 25 MG TAB PO SCH (21:00)
[2018-02-21] MEDS ORDERED: Insulin Glargine SoloStar Inj 100 UNIT/ML INSULN.PEN SUBCUT SCH (21:00)
[2018-02-21] MEDS ORDERED: ZOLPIDEM 10 MG TABLET PO SCH (21:00)
[2018-02-21] MEDS ORDERED: busPIRone HCL 5 MG TABLET PO SCH (21:00)
[2018-02-21] MEDS ORDERED: ClonazePAM Tab 1 MG TABLET PO SCH (21:00)
[2018-02-21] MEDS ORDERED: Magnesium Sulfate 4gm (Premix) 4 GM/100 ML BAG IV ONE (21:23)
[2018-02-21] MEDS ORDERED: Potassium Phoshate Inj 20 MMOL in Sodium Chloride 0.9% 100 ML IV ONE (21:24)
[2018-02-21] MEDS ORDERED: THIAMINE 100 MG/1 ML - 2 ML ONE (21:37)
[2018-02-21] MEDS: HYDROmorphone 2 MG/1 ML IVP PRN (23:39)
[2018-02-21 23:42] LABS: BLOOD UREA NITROGEN 11 mg/dL (7-22); BUN/CREATININE RATIO 18.33 (6-20)
[2018-02-22] MEDS ORDERED: Potassium Phoshate Inj 40 MMOL in D5W 250 ML IV ONE (00:16)
[2018-02-22] MEDS ORDERED: PHOS-NAK 1 EACH POWD.PACK PO ONE (00:35)
[2018-02-22] MEDS ORDERED: D5W IV ONE ×2 (02:00→09:30)
[2018-02-22] MEDS ORDERED: POTASSIUM PHOSHATE IV ONE ×2 (02:00→09:30)
[2018-02-22] MEDS: LORazepam Inj(ETOH withdrawal) 2 MG/ML VIAL IVP PRN ×2 (03:24→05:30)
[2018-02-22] MEDS: ONDANSETRON 4 MG/2 ML VIAL IVP PRN ×3 (03:24→22:27)
[2018-02-22] MEDS: D5-1/2NS + 20mEq KCL 1,000 ML PRIMARY IV SCH ×3 (04:03→19:39)
[2018-02-22 05:20] LABS: LIPASE 990 IU/L (23-300)
--- NOTE | 2018-02-22 06:12 | PDOC ---
Nausea/Vomiting/Diarrhea HPI - General Chief Complaint: Abdomen Pain Stated Complaint: ABD PAIN, N/V Date Seen by Provider: 02/21/18 Time Seen by Provider: 10:10 Source: POSITIVE: Patient Exam Limitations: POSITIVE: No limitations Nurse's Notes Reviewed & Considered: Yes - History of Present Illness Initial Comments: The patient is a 47-year-old female. She states that she has had nausea and vomiting for the past 12 hours. She had been on a alcoholic binge for the past 2 weeks. She stopped drinking alcohol yesterday. She states she's had about a fifth of vodka over the last 24 hours. Patient also complains of some upper abdominal pain and "shaking". Patient has a long-standing history of chronic alcohol abuse. She states she was abstinent for a period of time prior to 2 weeks ago. She has a history of recurring alcoholic pancreatitis and she has diabetes for which he takes Lantus, 18 units in the evening augmented by Humalog on a when necessary basis. She's had a cholecystectomy and an appendectomy. Body Location Affected: REPORTS: Abdomen Timing: REPORTS: Gradual, Getting Worse Duration: <24 hours (12 hours) Severity: Moderate Quality: REPORTS: "Pain" (Upper abdomen) Abdominal Pain Onset Location: REPORTS: RUQ, RLQ, Epigastric Abdominal Pain Radiation: REPORTS: No radiation Context: REPORTS: None Modifying Factors: improves with: Vomiting Associated Symptoms: REPORTS: Frequent Vomiting, Abdominal Pain Similar Symptoms Previously: Yes Recent Care Received: REPORTS: Denies Any Prior Injuries Related to Current Complaint?: No - Patient Home Medications Home Medications: Home Medications amlodipine 5 mg tablet 5 mg PO DAILY #30 tab 09/23/17 buspirone 15 mg tablet 15 mg PO BID #60 tab 11/29/17 losartan 100 mg-hydrochlorothiazide 12.5 mg tablet 1 tab PO QDAY #30 tab metoprolol tartrate 25 mg tablet 25 mg PO BID #60 tab 12/07/17 Potassium Chloride [Klor-Con] 10 meq PO BID #30 tab 12/30/17 clonazepam 0.5 mg tablet 0.5 mg PO BID #60 tab 01/19/18 insulin glargine (U-100) 100 unit/mL (3 mL) subcutaneous pen 15 unit SUBCUT BEDTIME ml 01/19/18 zolpidem 10 mg tablet 10 mg PO QHS #30 tab 01/30/18 LORazepam Tab [Ativan Tab] 1 mg PO Q6H PRN #10 tab 02/11/18 Ondansetron Odt [Zofran Odt] 8 mg PO Q6H PRN #10 tab.rapdis 02/11/18 pen needle, diabetic 30 gauge x 1/3" 0 unit .ROUTE .MEDSUPPLY 02/11/18 insulin lispro (U-100) 100 unit/mL subcutaneous pen 0 - 14 unit SUBCUT AC HS #3 ml 02/15/18 pen needle, diabetic, safety 30 gauge x 1/3" 0 ea .ROUTE .MEDSUPPLY 02/21/18 - Patient Allergies Allergies/Adverse Reactions: Allergies 3 Allergy/AdvReac Type Severity Reaction Status Date / Time codeine AdvReac HALLUCINATI Verified 02/21/18 10:12 ONS levofloxacin [From Levaquin] AdvReac HALLUCINATI Verified 02/21/18 10:12 ONS oxycodone AdvReac HALLUCINATI Verified 02/21/18 10:12 ONS Past Medical History - heen HEENT History: Other (please comment) Additional HEENT History: WEARS GLASSES. "BULL'S EYE VISION" Cardiovascular History: Hypertension, Other (please comment) Additional Cardiovasular History: PALPITATIONS Respiratory History: Pneumonia, Snoring, Other (please comment) Additional Respiratory History: chronic tobacco use Gastrointestinal History: GERD, Gallbladder Disease, Pancreatitis, Other ( please comment) Additional Gastrointestinal History: Chronic alcoholism. elevated liver enzymes Genitourinary History: Denies History Endocrine History: Type 1 Diabetes Additional Endocrine History: TYPE [address] LAGUNA Musculoskeletal History: Joint Pain, Other (please comment) Prosthesis or Implant: Yes (BREAST AUGMENTATION) Additional Musculoskeletal History: Pt fell down several stairs and fractured right shoulder. Pt had surgery on shoulder to repair fracture. X2 Neurological History: Seizures, Other (please comment) Additional Neurological History: SEIZURE WITH DETOX Blood Disorders: Denies History Psychiatric History: Depression, Anxiety Disorders, Substance Abuse Additional Psychiatric History: ALCOHOLISM: CHRONIC AND RECURRENT. PANIC DISORDER. PATIENT RECENTLY ATTEMPTED REHAB History of Sexually Transmitted Diseases: No Female Reproductive History: Denies History Obstetrical History: Denies History Cancer History: Denies History In Past Year Been Physically Harmed or Verbally Threatened: No History of MDRO: Yes Type of MDRO: MRSA Other Type of MDRO: TESTED POSITIVE 2014 FOLLOWED BY 2 NEG SWABS History of Other Communicable Diseases: No (MONO, VARICELLA) Tobacco Use: Heavy Tobacco Smoker Alcohol Use: Heavy Type of alcohol normally used: Hard Liquor In the Past 12 Months, Have Used or Abuse Any Substance: None Previous Surgical History: Yes Type / Date of Surgery: APPENDECTOMY, CHOLECYSTECTOMY, ABDOMINOPLASTY, BREAST AUGMENTATION, Right shoulder surgeryX2 Anesthesia Reactions: No Malignant Hyperthermia: No Significant Family History: Asthma, Heart disease, Cancer, Diabetes, Hypertension Additional Family History: EARLY MENOPAUSE - MOTHER Past Medical History Reviewed: Reviewed - No Changes ROS - Limitations ROS Limitations: No Limitations Constitution: REPORTS: Denies Symptoms Cardiovascular: REPORTS: Denies Cardiac Symptoms Respiratory: REPORTS: Denies Resp Symptoms Neurological: REPORTS: Denies Neuro Symptoms Gastrointestinal: REPORTS: Abdominal Pain, Nausea, Vomitting Endocrine: REPORTS: Denies Symptoms Musculoskeletal: REPORTS: Denies MS Symptoms Genitourinary: REPORTS: Denies Symptoms Eyes: REPORTS: Denies Symptoms ENT: REPORTS: Denies Symptoms Skin: REPORTS: Denies Skin Symptoms Lympathic: REPORTS: Denies Lympathic Symptoms Immunologic: POSITIVE: Denies Symptoms Psychiatric: POSITIVE: Anxiety Nausea/Vomiting/Diarrhea Exam - General Appearance General Appearance: POSITIVE: Alert, Cooperative, No Acute Distress, No Evidence of Trauma, Anxious - HEENT HEENT: POSITIVE: Head Inspection Nml, Eyes Inspection Nml, Ears Inspection Nml, Nose Inspection Nml, Oral/Dental Inspect. Nml, Pharynx Inspect. Nml, PERRL, EOMI - Neck Neck: POSITIVE: Supple, Normal Inspection, Non Tender - Respiratory Respiratory: POSITIVE: No Respiratory Distress, Breath Sounds Normal, Chest Non- Tender - Cardiovascular Cardiovascular: POSITIVE: Regular Rate and Rhythm, Heart Sounds Normal, Equal Pulses, Strong Pulses, Tachycardia (Heart rate 1 24/m) Peripheral Pulses: Radial (R): 2+, Radial (L): 2+ - Chest Chest: POSITIVE: Non Tender - Abdomen Abdomen: Soft: (All Quadrants), Normal Bowel Sounds: (All Quadrants), Denies Tenderness: (LLQ), (RLQ), No Splenomegaly: (All Quadrants), No Hepatomegaly: ( All Quadrants), No Guarding: (All Quadrants), No Rebound: (All Quadrants), No Palpable Pulse: (All Quadrants), No Palpabale Mass: (All Quadrants), No Distention: (All Quadrants), No Rigidity: (All Quadrants), Tenderness Noted: ( RUQ), (RLQ) (and epigastrium) - Back Back: POSITIVE: Normal Inspection - Skin Skin: POSITIVE: Intact, Normal For Race, Warm, Dry, No Rash - Extremities Extremity: Non-Tender: (All Extremities), Normal ROM: (All Extremities), Normal Inspection: (All Extremities) - Neurological / Psychological Neurological: POSITIVE: 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, 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, 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 Nausea as largely resolved with hydration and Zofran. Patient has mostly compensated metabolic acidosis and pancreatitis. She may also be in some level of withdrawal. Her shakiness and tremulousness improved with Ativan. Status: POSITIVE: Improved, Re-Examined - Consult Consult (If Yes, Name of Consulting MD & Time Called): Yes (Dr. Espinal, hospitalist, [id number]) Consulting MD will see pt:: POSITIVE: [facility] Admit Counseled: POSITIVE: Patient, RE: Lab Results, RE: DX, RE: Need for F/U Patient Care Time - Estimated PCT Patient Care Time (In Minutes): 60 Vital Signs - Recent Vital Signs Vital Signs: Vital Signs (Last 8 hours) Temp Pulse Pulse Resp BP BP Pulse Ox 02/22/18 05:06 96 02/22/18 05:00 97.7 F 88 88 18 120/70 120/70 97 02/22/18 04:00 98 F 94 18 132/90 95 02/22/18 03:00 98.1 F 97 106 H 16 100/85 100/85 97 02/22/18 02:00 98.1 F 96 18 118/95 96 02/22/18 01:00 97.8 F 99 99 18 117/101 117/101 96 02/22/18 00:00 98.1 F 100 18 138/91 91 02/21/18 23:00 98 F 96 96 18 117/86 117/86 96 - VS Reviewed Vital Signs Reviewed: Yes Discharge Clinical Impression: Pancreatitis, alcoholic, acute, Acidosis, Nausea and vomiting Discharge Disposition: Admit to Inpatient Condition: Fair Date Decision to Admit to Inpatient: 02/22/18 Time Decision to Admit to Inpatient: 12:50
[2018-02-22] MEDS: HYDROmorphone 2 MG/1 ML IVP PRN ×4 (08:14→22:18)
[2018-02-22] MEDS ORDERED: AmLODIPine Tab 5 MG TABLET PO SCH (09:00)
[2018-02-22] MEDS ORDERED: NICOTINE 21 MG /DAY PATCH TRANSDERM SCH (09:00)
[2018-02-22] MEDS ORDERED: Pantoprazole Inj 40 MG in Normal Saline Flush 10 ML IVP SCH (09:00)
[2018-02-22] MEDS: Pantoprazole Inj 40 MG in Normal Saline Flush 10 ML IVP SCH (09:19)
[2018-02-22] MEDS: busPIRone HCL 5 MG TABLET PO SCH ×2 (09:25→21:03)
[2018-02-22] MEDS ORDERED: Potassium Phoshate Inj 3 MMOL/ML VIAL IV ONE (09:26)
[2018-02-22] MEDS: Metoprolol TARTRATE Tab 25 MG TAB PO SCH ×2 (09:26→21:03)
[2018-02-22] MEDS: ClonazePAM Tab 1 MG TABLET PO SCH ×2 (09:26→21:02)
[2018-02-22] MEDS: AmLODIPine Tab 5 MG TABLET PO SCH (10:12)
[2018-02-22 14:17] LABS: BLOOD UREA NITROGEN 8 mg/dL (7-22)
--- NOTE | 2018-02-22 18:50 | PDOC(PROG) ---
Date and Time of Service: 02/22/2018, 1845 Interval History: No chest pain, no shortness of breath. Patient is very tearful today. She is upset that she relapsed in terms of her alcohol abuse. I suspect she may be in the honeymoon phase in terms of her diabetes, otherwise I think she would've been much sicker. She states to me that she would be willing to visit with the psychiatrist to work on depression issues and would like to arrange through Dr. Mcallister. She wants to try some broth which we will let her do at bedside. Still has abdominal pain. Objective : Data - Labs CBC and BMP: 02/21/18 10:44 02/22/18 14:06 Additional Lab Results: 02/21/18 02/22/18 02/22/18 23:32 04:03 14:06 Calcium 8.0 L 6.9 L Phosphorus 0.7 L 3.7 Magnesium 2.7 H Lipase 990 H Acetone Level Moderate Objective : Exam - General General Appearance: No Acute Distress, Cooperative Additional General Exam Details: Vital Signs - Last Taken Temperature 98.0 F 02/22/18 17:11 Pulse Rate 85 02/22/18 18:00 Respiratory Rate 12 02/22/18 18:00 Blood Pressure 109/80 02/22/18 18:00 Pulse Ox 90 02/22/18 18:00 - Eye Eye Exam: No Scleral Icterus - ENT ENT Exam: Mucous Membranes Moist - Respiratory Respiratory Exam: Clear to Auscultation - Bilaterally, Breathing Non Labored - Cardiovascular Cardiovascular Exam: RRR, No Murmur, No Clicks, No Gallops, No Rubs, No JVD - GI/Abdominal GI/Abdominal Exam: Normal Bowel Sounds, Non Distended, Soft Additional GI/Abdominal Exam Details: Tender epigastric pain. - Extremities Extremities Exam: No Clubbing Present, No Edema Present, No Cyanosis Present - Neurological Neurological Exam: Alert, Oriented x 3, No Facial Droop, Speech Intact / Clear, Moves All Extremities Equally - Psychiatric Psychiatric Exam: Depressed Assessment and Plan - Patient Problems (1) DKA (diabetic ketoacidoses) Current Visit: Yes Status: Acute Code(s): E13.10 - Other specified diabetes mellitus with ketoacidosis without coma Qualifiers: Diabetes mellitus type: type 1 Diabetes mellitus complication detail: without coma Qualified Code(s): E10.10 - Type 1 diabetes mellitus with ketoacidosis without coma (2) Acute pancreatitis Current Visit: Yes Status: Acute Code(s): K85.90 - Acute pancreatitis without necrosis or infection, unspecified Qualifiers: Pancreatitis type: alcohol induced (3) Type 1 diabetes mellitus Current Visit: Yes Status: Chronic Code(s): E10.9 - Type 1 diabetes mellitus without complications Qualifiers: Diabetes mellitus complication status: with ketoacidosis Diabetes mellitus complication detail: without coma Qualified Code(s): E10.10 - Type 1 diabetes mellitus with ketoacidosis without coma (4) Tobacco abuse Current Visit: Yes Status: Chronic Code(s): Z72.0 - Tobacco use (5) Chronic alcohol abuse Current Visit: Yes Status: Chronic Code(s): F10.10 - Alcohol abuse, uncomplicated - Assessment / Plan Additional Assessment/Plan Details: Replace electrolytes. Including potassium, phosphorus, and calcium, and magnesium Continue D5 fluids and allow ice chips today. Continue insulin drip as patient still has moderate amount of ketones present. Still in DKA. Still acidotic on her basic metabolic panels although anion gap is closed. Outpatient-bey, pursue whether or not the patient might have bipolar disorder or some other psychiatric diagnosis and may benefit from treatment modifications. Continue CIWA protocol Check ketones again in a.m. Check electrolytes later tonight and again in a.m. Given alcohol withdrawal and continue DKA, patient will remain in the ICU.
[2018-02-22] MEDS ORDERED: CALCIUM GLUCONATE IV SCH (19:00)
[2018-02-22] MEDS ORDERED: D5W IV SCH (19:00)
[2018-02-22] MEDS: ZOLPIDEM 10 MG TABLET PO SCH (21:03)
[2018-02-22 22:05] LABS: BLOOD UREA NITROGEN 6 mg/dL (7-22)
[2018-02-23] MEDS: LORazepam Inj(ETOH withdrawal) 2 MG/ML VIAL IVP PRN ×2 (01:35→09:32)
[2018-02-23] MEDS: D5-1/2NS + 20mEq KCL 1,000 ML PRIMARY IV SCH ×3 (03:26→20:27)
[2018-02-23] MEDS: HYDROmorphone 2 MG/1 ML IVP PRN ×6 (04:07→21:28)
[2018-02-23 05:29] LABS: BLOOD UREA NITROGEN 6 mg/dL (7-22)
[2018-02-23] MEDS: Pantoprazole Inj 40 MG in Normal Saline Flush 10 ML IVP SCH (08:01)
--- NOTE | 2018-02-23 08:08 | PDOC(PROG) ---
Date and Time of Service: 02/23/2018 8:05 AM Interval History: Subjective Patient came into the hospital because because of nausea, vomiting and diarrhea with abdominal pain felt in the epigastric area. She said she relapsed and started drinking again she was drinking a fifth of vodka the last few days before she came in. She still doesn't feel well have abdominal pain no vomiting today. The pain is in the epigastric area and goes to the back similar to her previous episode of pancreatitis. Objective : Data - Labs CBC and BMP: 02/21/18 10:44 02/23/18 04:10 Objective : Exam - General General Appearance: Cooperative Additional General Exam Details: Sleepy, looks tired also. - Head Head Exam: Normal Inspection - Eye Eye Exam: Normal Appearance - ENT ENT Exam: Normal Exam - Neck Neck Exam: Normal Inspection - Respiratory Respiratory Exam: Clear to Auscultation - Bilaterally - Cardiovascular Cardiovascular Exam: RRR - GI/Abdominal GI/Abdominal Exam: Normal Bowel Sounds, Non Distended, Soft, No Organomegaly Additional GI/Abdominal Exam Details: Some tenderness present the epigastric area with abdomen is soft. - Rectal Rectal Exam: Deferred - External Exam: Deferred - Extremities Extremities Exam: Normal Inspection - Back Back Exam: Normal Inspection - Neurological Neurological Exam: Alert, Oriented x 3, CN II-XII Intact, No Facial Droop, Speech Intact / Clear, Moves All Extremities Equally - Psychiatric Psychiatric Exam: Normal Affect - Integumentary Integumentary Exam: Warm Assessment and Plan - Patient Problems (1) DKA (diabetic ketoacidoses) Current Visit: Yes Status: Acute Comment: Her anion gap is normal, bicarbonate though is still low. This may be secondary to being nothing by mouth, will put her clear liquid. If she tolerate the fluid during the day will think about switching her to insulin subcutaneous instead of the IV drip. Code(s): E13.10 - Other specified diabetes mellitus with ketoacidosis without coma Qualifiers: Diabetes mellitus type: type 1 Diabetes mellitus complication detail: without coma Qualified Code(s): E10.10 - Type 1 diabetes mellitus with ketoacidosis without coma (2) Chronic alcohol abuse Current Visit: Yes Status: Chronic Comment: She is on CIWA scale with Ativan continue. Code(s): F10.10 - Alcohol abuse, uncomplicated (3) Type 1 diabetes mellitus Current Visit: Yes Status: Chronic Comment: She is on insulin drip now as I said will see her blood sugar during the day if she tolerate oral liquid may switch her to subcutaneous insulin. Code(s): E10.9 - Type 1 diabetes mellitus without complications Qualifiers: Diabetes mellitus complication status: with ketoacidosis Diabetes mellitus complication detail: without coma Qualified Code(s): E10.10 - Type 1 diabetes mellitus with ketoacidosis without coma (4) Acute pancreatitis Current Visit: Yes Status: Acute Comment: We'll try a clear liquid and see if she tolerate that. Contineu current pain medications. Code(s): K85.90 - Acute pancreatitis without necrosis or infection, unspecified Qualifiers: Pancreatitis type: alcohol induced
[2018-02-23] MEDS: ClonazePAM Tab 1 MG TABLET PO SCH ×2 (09:12→20:25)
[2018-02-23] MEDS: busPIRone HCL 5 MG TABLET PO SCH (09:12)
[2018-02-23] MEDS: Metoprolol TARTRATE Tab 25 MG TAB PO SCH ×2 (09:12→20:25)
[2018-02-23] MEDS: AmLODIPine Tab 5 MG TABLET PO SCH (09:13)
[2018-02-23] MEDS: ONDANSETRON 4 MG/2 ML VIAL IVP PRN (12:06)
[2018-02-23] MEDS ORDERED: DEXTROSE 31 GM GEL PO PRN (13:11)
[2018-02-23] MEDS ORDERED: Glucagon Inj Vial 1 MG/ML VIAL IM PRN ×2 (13:11→18:43)
[2018-02-23] MEDS ORDERED: DEXTROSE 50%-WATER SYRINGE 50 ML SYRINGE IVP PRN ×2 (13:11→18:43)
[2018-02-23] MEDS ORDERED: Insulin Sliding Scale Protocol SUBCUT PRN (13:11)
[2018-02-23] MEDS ORDERED: Insulin Lispro Flexpen 300 UNIT/3 ML INSULN.PEN SUBCUT SCH (16:00)
[2018-02-23] MEDS ORDERED: D5W IV SCH (18:43)
[2018-02-23] MEDS ORDERED: CALCIUM CARBONATE 500 MG (TUMS) CHEWABLE TABLET PO PRN (18:43)
[2018-02-23] MEDS ORDERED: LIDOCAINE W/ SODIUM BICARB 0.5 ML SYR SUBD PRN (18:43)
[2018-02-23] MEDS ORDERED: CALCIUM GLUCONATE IV SCH (18:43)
[2018-02-23] MEDS ORDERED: LORazepam Inj(ETOH withdrawal) 2 MG/ML VIAL IVP PRN (18:43)
[2018-02-23] MEDS ORDERED: DOCUSATE 100 MG CAPSULE PO PRN (18:43)
[2018-02-23] MEDS: ZOLPIDEM 10 MG TABLET PO SCH (20:26)
[2018-02-23] MEDS: Insulin Lispro Flexpen 300 UNIT/3 ML INSULN.PEN SUBCUT SCH (20:33)
[2018-02-23] MEDS ORDERED: busPIRone HCL 5 MG TABLET PO SCH (21:00)
[2018-02-23] MEDS ORDERED: Insulin Glargine SoloStar Inj 100 UNIT/ML INSULN.PEN SUBCUT SCH ×2 (21:00)
[2018-02-24] MEDS: HYDROmorphone 2 MG/1 ML IVP PRN ×7 (00:30→23:41)
[2018-02-24] MEDS: D5-1/2NS + 20mEq KCL 1,000 ML PRIMARY IV SCH ×2 (03:54→15:14)
[2018-02-24] MEDS: LORazepam 1 mg tab (ETOH withdrawal) PO PRN ×4 (05:22→20:06)
[2018-02-24 05:50] LABS: BASOPHILS # (AUTO) 0.02 10*3/UL; BASOPHILS % (AUTO) 0.4 % (0-1); EOSINOPHILS # (AUTO) 0.11 10*3/UL; EOSINOPHILS % (AUTO) 2.1 % (0-8); Hematocrit [HCT] 32.9 % (37.0-47.0); Hemoglobin [HGB] 10.9 g/dL (12.0-16.0); LYMPHOCYTES # (AUTO) 1.41 10*3/uL; MEAN CORPUSCULAR HEMOGLOBIN 32.9 PG (27-31); MEAN CORPUSCULAR HGB CONC 33.1 g/dL (33-37); MEAN CORPUSCULAR VOLUME 99.4 FL (81-99); MEAN PLATELET VOLUME 10.1 FL (7.4-12.2); MONOCYTES # (AUTO) 0.24 10*3/UL (0.3-0.8); MONOCYTES % (AUTO) 4.6 % (5-15); NEUTROPHILS % (AUTO) 65.5 % (50-80); RED BLOOD COUNT 3.31 10^6/uL (4.20-5.40)
[2018-02-24 05:58] LABS: PLATELET MORPHOLOGY COMMENT NORMAL MORPHOLOGY (NORM); RBC MORPHOLOGY COMMENT NORMAL MORPHOLOGY (NORM); WBC MORPHOLOGY COMMENT NORMAL MORPHOLOGY (NORM)
[2018-02-24 06:04] LABS: BLOOD UREA NITROGEN 3 mg/dL (7-22); LIPASE 247 IU/L (23-300); SERUM ALBUMIN 4.3 g/dL (3.5-4.8)
[2018-02-24] MEDS: Insulin Lispro Flexpen 300 UNIT/3 ML INSULN.PEN SUBCUT SCH ×4 (06:45→20:07)
[2018-02-24] MEDS: ONDANSETRON 4 MG/2 ML VIAL IVP PRN ×3 (07:29→23:41)
--- NOTE | 2018-02-24 07:30 | PDOC(PROG) ---
Date and Time of Service: 02/24/2018 7:31 AM Interval History: Subjective Patient did feel a little bit better today compared to yesterday. She said she tried some sips of broth and some oral fluids but not much. Pain is still there but not as bad as yesterday. Objective : Data - Labs CBC and BMP: 02/24/18 04:48 02/24/18 04:48 Objective : Exam - General Additional General Exam Details: Looks tired - Head Head Exam: Normal Inspection - Eye Eye Exam: Normal Appearance - ENT ENT Exam: Normal Exam - Neck Neck Exam: Normal Inspection - Respiratory Respiratory Exam: Clear to Auscultation - Bilaterally - Cardiovascular Cardiovascular Exam: RRR - GI/Abdominal GI/Abdominal Exam: Normal Bowel Sounds, Non Distended, Soft, No Organomegaly Additional GI/Abdominal Exam Details: Some mild tenderness in the midepigastrium - Rectal Rectal Exam: Deferred - External Exam: Deferred - Extremities Extremities Exam: Normal Inspection - Back Back Exam: Normal Inspection - Neurological Neurological Exam: Alert, Oriented x 3, Normal Gait, CN II-XII Intact, Speech Intact / Clear, Moves All Extremities Equally - Psychiatric Psychiatric Exam: Normal Affect - Integumentary Integumentary Exam: Normal Color Assessment and Plan - Patient Problems (1) DKA (diabetic ketoacidoses) Current Visit: Yes Status: Acute Comment: This is improved. We switched her to subcutaneous insulin instead of the IV drip. We'll cut back further on her fluid and depending on her intake will decide about continuing the fluid or not. Continue the sliding scale. I did start her also on a low dose Lantus will increase it to 6 unit tonight. Code(s): E13.10 - Other specified diabetes mellitus with ketoacidosis without coma Qualifiers: Diabetes mellitus type: type 1 Diabetes mellitus complication detail: without coma Qualified Code(s): E10.10 - Type 1 diabetes mellitus with ketoacidosis without coma (2) Chronic alcohol abuse Current Visit: Yes Status: Chronic Comment: This is an ongoing problem she is on CIWA scale with Ativan as needed. Code(s): F10.10 - Alcohol abuse, uncomplicated (3) Type 1 diabetes mellitus Current Visit: Yes Status: Chronic Comment: Continue current dosage of insulin but as I said I'll increase the Lantus tonight. Code(s): E10.9 - Type 1 diabetes mellitus without complications Qualifiers: Diabetes mellitus complication status: with ketoacidosis Diabetes mellitus complication detail: without coma Qualified Code(s): E10.10 - Type 1 diabetes mellitus with ketoacidosis without coma (4) Acute pancreatitis Current Visit: Yes Status: Acute Comment: Lipase is down. We'll advance her diet to full liquid and cut back on the fluid. We'll see what her intake and then will decide if we can stop the fluid. Code(s): K85.90 - Acute pancreatitis without necrosis or infection, unspecified Qualifiers: Pancreatitis type: alcohol induced (5) Hypertension Current Visit: Yes Status: Acute Comment: Continue metoprolol and amlodipine continue holding the losartan Code(s): I10 - Essential (primary) hypertension
[2018-02-24] MEDS: NICOTINE 21 MG /DAY PATCH TRANSDERM SCH (08:30)
[2018-02-24] MEDS: ClonazePAM Tab 1 MG TABLET PO SCH ×2 (08:31→20:05)
[2018-02-24] MEDS: PANTOPRAZOLE 40 MG TABLET PO SCH (08:32)
[2018-02-24] MEDS: Metoprolol TARTRATE Tab 25 MG TAB PO SCH ×2 (08:32→20:06)
[2018-02-24] MEDS: AmLODIPine Tab 5 MG TABLET PO SCH (08:32)
[2018-02-24] MEDS ORDERED: Pantoprazole Inj 40 MG in Normal Saline Flush 10 ML IVP SCH (09:00)
[2018-02-24] MEDS: ZOLPIDEM 10 MG TABLET PO SCH (20:06)
[2018-02-24] MEDS: Insulin Glargine SoloStar Inj 100 UNIT/ML INSULN.PEN SUBCUT SCH (20:08)
[2018-02-25] MEDS: D5-1/2NS + 20mEq KCL 1,000 ML PRIMARY IV SCH (02:38)
[2018-02-25] MEDS: LORazepam 1 mg tab (ETOH withdrawal) PO PRN ×2 (04:35→11:51)
[2018-02-25] MEDS: HYDROmorphone 2 MG/1 ML IVP PRN ×4 (04:36→23:52)
[2018-02-25 05:30] LABS: BLOOD UREA NITROGEN 3 mg/dL (7-22)
[2018-02-25] MEDS: ONDANSETRON 4 MG/2 ML VIAL IVP PRN ×3 (07:03→23:52)
[2018-02-25] MEDS: Insulin Lispro Flexpen 300 UNIT/3 ML INSULN.PEN SUBCUT SCH ×4 (07:04→20:05)
[2018-02-25] MEDS: PANTOPRAZOLE 40 MG TABLET PO SCH (07:45)
--- NOTE | 2018-02-25 07:48 | PDOC(PROG) ---
Date and Time of Service: 02/25/2018 7:44 AM Interval History: Subjective She feels somewhat better today compared to yesterday. She still have abdominal pain in the epigastric area, intermittent. No more vomiting. She said she is not eating much because she doesn't have an appetite, she is drinking fluid though. Objective : Data - Labs CBC and BMP: 02/24/18 04:48 02/25/18 05:15 Objective : Exam - General General Appearance: No Acute Distress, Cooperative - Head Head Exam: Normal Inspection - Eye Eye Exam: Normal Appearance - ENT ENT Exam: Normal Exam - Neck Neck Exam: Normal Inspection - Respiratory Respiratory Exam: Clear to Auscultation - Bilaterally - Cardiovascular Cardiovascular Exam: RRR - GI/Abdominal GI/Abdominal Exam: Normal Bowel Sounds, Non Distended, Soft, No Organomegaly Additional GI/Abdominal Exam Details: Some minimal tenderness in the epigastrium - Rectal Rectal Exam: Deferred - External Exam: Deferred - Extremities Extremities Exam: Normal Inspection - Back Back Exam: Normal Inspection - Neurological Neurological Exam: Alert, Oriented x 3, CN II-XII Intact, Speech Intact / Clear , Moves All Extremities Equally - Psychiatric Psychiatric Exam: Normal Affect Assessment and Plan - Patient Problems (1) DKA (diabetic ketoacidoses) Current Visit: Yes Status: Acute Comment: This is resolved. She is on subcutaneous insulin continue. Code(s): E13.10 - Other specified diabetes mellitus with ketoacidosis without coma Qualifiers: Diabetes mellitus type: type 1 Diabetes mellitus complication detail: without coma Qualified Code(s): E10.10 - Type 1 diabetes mellitus with ketoacidosis without coma (2) Chronic alcohol abuse Current Visit: Yes Status: Chronic Comment: She is on multivitamin and on Ativan by mouth as needed for withdrawal. her platelet dropped yesterday I think care secondary to the toxic effects of alcohol. She is on multivitamin Code(s): F10.10 - Alcohol abuse, uncomplicated (3) Type 1 diabetes mellitus Current Visit: Yes Status: Chronic Comment: Continue current insulin dosages Code(s): E10.9 - Type 1 diabetes mellitus without complications Qualifiers: Diabetes mellitus complication status: with ketoacidosis Diabetes mellitus complication detail: without coma Qualified Code(s): E10.10 - Type 1 diabetes mellitus with ketoacidosis without coma (4) Acute pancreatitis Current Visit: Yes Status: Acute Comment: She is improving, we did advance her diet to regular yesterday. I think I'll DC the fluid. We'll cut back more on the IV pain medication put her on oral tramadol as needed. We'll watch her another day and see how things look tomorrow then will decide about releasing her. Code(s): K85.90 - Acute pancreatitis without necrosis or infection, unspecified Qualifiers: Pancreatitis type: alcohol induced (5) Hypertension Current Visit: Yes Status: Acute Comment: Same medications Code(s): I10 - Essential (primary) hypertension
[2018-02-25] MEDS: NICOTINE 21 MG /DAY PATCH TRANSDERM SCH (08:52)
[2018-02-25] MEDS: Multivitamin Tab 1 TAB PO SCH (08:59)
[2018-02-25] MEDS: Potassium Chloride Tab 10 MEQ TAB PO SCH ×2 (08:59→20:06)
[2018-02-25] MEDS: ClonazePAM Tab 1 MG TABLET PO SCH ×2 (09:00→20:06)
[2018-02-25] MEDS: Metoprolol TARTRATE Tab 25 MG TAB PO SCH ×2 (09:00→20:07)
[2018-02-25] MEDS: AmLODIPine Tab 5 MG TABLET PO SCH (09:00)
[2018-02-25] MEDS: traMADol 50 MG TABLET PO PRN ×3 (11:43→23:53)
[2018-02-25] MEDS: ACETAMINOPHEN 325 MG TABLET PO PRN (19:40)
[2018-02-25] MEDS: ZOLPIDEM 10 MG TABLET PO SCH (20:06)
[2018-02-25] MEDS: Insulin Glargine SoloStar Inj 100 UNIT/ML INSULN.PEN SUBCUT SCH (20:06)
[2018-02-26] MEDS: ACETAMINOPHEN 325 MG TABLET PO PRN ×2 (05:10→13:53)
[2018-02-26 05:12] LABS: EOSINOPHILS % (AUTO) 2.6 % (0-8); Hematocrit [HCT] 34.5 % (37.0-47.0); MEAN CORPUSCULAR HEMOGLOBIN 34.3 PG (27-31); MEAN CORPUSCULAR HGB CONC 34.8 g/dL (33-37); MEAN CORPUSCULAR VOLUME 98.6 FL (81-99); MEAN PLATELET VOLUME 9.4 FL (7.4-12.2); MONOCYTES % (AUTO) 9.1 % (5-15); NEUTROPHILS % (AUTO) 46.2 % (50-80)
[2018-02-26 05:13] LABS: BASOPHILS # (AUTO) 0.02 10*3/UL; BASOPHILS % (AUTO) 0.4 % (0-1); EOSINOPHILS # (AUTO) 0.12 10*3/UL; LYMPHOCYTES # (AUTO) 1.86 10*3/uL; MONOCYTES # (AUTO) 0.42 10*3/UL (0.3-0.8); NEUTROPHILS # (AUTO) 2.12 10*3/UL
[2018-02-26 05:18] LABS: PLATELET MORPHOLOGY COMMENT NORMAL MORPHOLOGY (NORM); RBC MORPHOLOGY COMMENT NORMAL MORPHOLOGY (NORM); WBC MORPHOLOGY COMMENT NORMAL MORPHOLOGY (NORM)
[2018-02-26] MEDS: traMADol 50 MG TABLET PO PRN ×3 (05:36→21:46)
[2018-02-26] MEDS: HYDROmorphone 2 MG/1 ML IVP PRN ×4 (05:47→22:55)
[2018-02-26 06:27] LABS: BLOOD UREA NITROGEN 5 mg/dL (7-22)
[2018-02-26] MEDS: Insulin Lispro Flexpen 300 UNIT/3 ML INSULN.PEN SUBCUT SCH ×4 (07:00→20:33)
[2018-02-26] MEDS: PANTOPRAZOLE 40 MG TABLET PO SCH (07:09)
--- NOTE | 2018-02-26 08:00 | PDOC(PROG) ---
Date and Time of Service: 02/26/2018 8:25 AM Interval History: Subjective Patient is complaining from headache and she attributed that to her tooth. Still have the abdominal pain maybe less than before. Mild nausea no vomiting though. Objective : Data - Labs CBC and BMP: 02/26/18 04:40 02/26/18 04:40 Objective : Exam - General General Appearance: No Acute Distress, Cooperative - Head Head Exam: Normal Inspection - Eye Eye Exam: Normal Appearance - ENT ENT Exam: Normal Exam - Neck Neck Exam: Normal Inspection - Respiratory Respiratory Exam: Clear to Auscultation - Bilaterally - Cardiovascular Cardiovascular Exam: RRR - GI/Abdominal GI/Abdominal Exam: Normal Bowel Sounds, Non Distended, Soft, No Organomegaly Additional GI/Abdominal Exam Details: Some tenderness in the epigastrium still present. Seems minimal low. - Rectal Rectal Exam: Deferred - External Exam: Deferred - Extremities Extremities Exam: Normal Inspection - Back Back Exam: Normal Inspection - Neurological Neurological Exam: Alert, Oriented x 3, Normal Gait, CN II-XII Intact, Speech Intact / Clear, Moves All Extremities Equally - Psychiatric Psychiatric Exam: Normal Affect Assessment and Plan - Patient Problems (1) DKA (diabetic ketoacidoses) Current Visit: Yes Status: Acute Comment: yesterday that seems to be resolved. However her numbers today are worsened in terms of lower bicarbonate, slightly higher sodium, higher gap not sure that she is drinking enough fluids as her intake was 890 last few drinking mostly broth. I did encourage her to drink free water.Will Give her IV fluid and see how she feels in the afternoon and decide about sending her home or keeping her another night. Code(s): E13.10 - Other specified diabetes mellitus with ketoacidosis without coma Qualifiers: Diabetes mellitus type: type 1 Diabetes mellitus complication detail: without coma Qualified Code(s): E10.10 - Type 1 diabetes mellitus with ketoacidosis without coma (2) Chronic alcohol abuse Current Visit: Yes Status: Chronic Comment: She is on multivitamin. Code(s): F10.10 - Alcohol abuse, uncomplicated (3) Type 1 diabetes mellitus Current Visit: Yes Status: Chronic Comment: Continue insulin sliding scale. Code(s): E10.9 - Type 1 diabetes mellitus without complications Qualifiers: Diabetes mellitus complication status: with ketoacidosis Diabetes mellitus complication detail: without coma Qualified Code(s): E10.10 - Type 1 diabetes mellitus with ketoacidosis without coma (4) Acute pancreatitis Current Visit: Yes Status: Acute Comment: Resolving Code(s): K85.90 - Acute pancreatitis without necrosis or infection, unspecified Qualifiers: Pancreatitis type: alcohol induced (5) Hypertension Current Visit: Yes Status: Acute Comment: Same med Code(s): I10 - Essential (primary) hypertension
[2018-02-26] MEDS: NICOTINE 21 MG /DAY PATCH TRANSDERM SCH (08:52)
[2018-02-26] MEDS: Multivitamin Tab 1 TAB PO SCH (08:52)
[2018-02-26] MEDS: AmLODIPine Tab 5 MG TABLET PO SCH (08:52)
[2018-02-26] MEDS: Metoprolol TARTRATE Tab 25 MG TAB PO SCH ×2 (08:53→20:33)
[2018-02-26] MEDS: Potassium Chloride Tab 10 MEQ TAB PO SCH ×2 (08:53→20:33)
[2018-02-26] MEDS: ClonazePAM Tab 1 MG TABLET PO SCH ×2 (08:53→20:33)
[2018-02-26] MEDS: Lactated Ringers 1,000 ML PRIMARY IV SCH ×2 (09:07→16:20)
[2018-02-26] MEDS: LORazepam 1 MG TABLET PO PRN (13:53)
[2018-02-26] MEDS: ONDANSETRON 4 MG/2 ML VIAL IVP PRN (19:08)
[2018-02-26 20:15] VITALS: RESP 20
[2018-02-26] MEDS: Insulin Glargine SoloStar Inj 100 UNIT/ML INSULN.PEN SUBCUT SCH (20:33)
[2018-02-26] MEDS: ZOLPIDEM 10 MG TABLET PO SCH (20:34)
[2018-02-27] MEDS: LORazepam 1 MG TABLET PO PRN (02:05)
[2018-02-27] MEDS: HYDROmorphone 2 MG/1 ML IVP PRN (04:27)
[2018-02-27] MEDS: traMADol 50 MG TABLET PO PRN (06:27)
[2018-02-27] MEDS: ONDANSETRON 4 MG/2 ML VIAL IVP PRN (06:27)
[2018-02-27] MEDS: PANTOPRAZOLE 40 MG TABLET PO SCH (06:58)
[2018-02-27] MEDS: Insulin Lispro Flexpen 300 UNIT/3 ML INSULN.PEN SUBCUT SCH (06:58)
[2018-02-27 07:00] VITALS: BP 145/89; TEMP 98; O2SAT 93
[2018-02-27 07:13] LABS: BLOOD UREA NITROGEN 10 mg/dL (7-22)
--- NOTE | 2018-02-27 08:17 | DCSUMMARY ---
Hospitalization Summary Admit Date: 02/21/2018 Discharge Date: 02/27/18 Hospital Course: Discharge diagnoses 1. Diabetic ketoacidosis 2. Acute on chronic pancreatitis 3. Hypertension 4. Chronic alcoholism 5. History of anxiety 6. Hypokalemia Hospital course This is a 47 years old female with medical history significant for history of hypertension, chronic alcoholism and diabetes secondary to chronic pancreatitis who presented to the hospital with history of abdominal pain nausea and vomiting. She was found to be in DKA in addition she started drinking again was thought that she was also in withdrawal she was given fluids and was admitted. Was admitted by Dr. Espinal please see his note. Patient was put on IV fluids in addition to IV insulin drip. Initially she was put on nothing by mouth her lipase was elevated more than 1000 gradually there was a decline in the lipase. I saw her later on during her hospital stay we managed to switch her from IV drip insulin to subcutaneous insulin. We started clear liquid diet and it took her a few days for her symptoms to resolve and for the acidosis to resolve. On the day of discharge she was feeling better, she was tolerating diet, we thought that she could be discharged home and follow-up with Dr. Mcallister as an outpatient. We did discharge her on a few pills of clonazepam and she ran out until she sees Dr. Mcallister also discharged on tramadol and potassium. Did advise her again to quit drinking. She managed to stay sober for a few months but she relapsed few days ago for unclear reason. Laboratory Results 02/27/18 Range/Units 04:46 Sodium 138 D (135-145) meq/L Potassium 3.3 L (3.8-5.2) meq/L Chloride 98 (98-112) meq/L Carbon Dioxide 25 (23-33) meq/L Anion Gap 15 (5-20) BUN 10 (7-22) mg/dL Creatinine 0.5 (0.50-1.20) mg/dL Estimated GFR > 60 (>60 ml/min/1.73m(2)) BUN/Creatinine Ratio 20.00 (6-20) Glucose 98 (78-110) mg/dL Calculated Osmolality 284.0 (267-292) mOsm/kg Calcium 10.4 (8.7-10.7) mg/dL Discharge instruction Diet diabetic Activity as started Medications Current Medication(s) 3 Medication Instructions Recorded Confirmed Type amlodipine 5 mg tablet 5 mg PO DAILY #30 tab 09/23/17 02/21/18 Rx losartan 100 1 tab PO QDAY #30 tab 11/29/17 02/21/18 Rx mg-hydrochlorothiazide 12.5 mg tablet metoprolol tartrate 25 mg tablet 25 mg PO BID #60 tab 12/07/17 02/21/18 Rx insulin glargine (U-100) 100 15 unit SUBCUT BEDTIME ml 01/19/18 02/21/18 History unit/mL (3 mL) subcutaneous pen zolpidem 10 mg tablet 10 mg PO QHS #30 tab 01/30/18 02/21/18 Rx Ondansetron Odt [Zofran Odt] 8 mg PO Q6H PRN #10 tab.rapdis 02/11/18 02/21/18 Rx pen needle, diabetic 30 gauge x 0 unit .ROUTE .MEDSUPPLY 02/11/18 02/21/18 History 1/3" insulin lispro (U-100) 100 unit/mL 0 - 14 unit SUBCUT AC HS #3 ml 02/15/1802/21 Rx subcutaneous pen pen needle, diabetic, safety 30 0 ea .ROUTE .MEDSUPPLY 02/21/18 02/21/18 History gauge x 1/3" Acetaminophen [Tylenol] 650 mg PO Q6H #1 tablet.sa 02/27/18 Rx Clonazepam 0.5 mg PO BID #8 tab 02/27/18 Rx Potassium Chloride [Klor-Con] 10 meq PO BID #30 tab 02/27/18 Rx traMADol HCl [Ultram] 50 mg PO Q6H PRN #10 tab 02/27/18 Rx Follow-up with PCP in 1-2 weeks Condition at discharge was stable for discharge Exam - Vitals Vital Signs: Vital Signs Temperature 98 F Temperature Source Temporal Artery Scan Pulse Rate [Apical] 92 Pulse Rate [Pulse Oximeter] 95 Pulse Rate 79 Respiratory Rate 20 Blood Pressure [Right Arm] 145/89 Blood Pressure [Left Arm] 126/87 Blood Pressure 130/90 Pulse Ox 93 Oxygen Flow Rate 2 Oxygen Delivery Method Room Air Height 5 ft 3 in Weight 131 lb 8 oz - General General Appearance: No Acute Distress, Cooperative - Head Head Exam: Normal Inspection - Eye Eye Exam: POSITIVE: Normal Appearance - ENT ENT Exam: POSITIVE: Normal Exam - Neck Neck Exam: Normal Inspection - Respiratory Respiratory Exam: POSITIVE: Clear to Auscultation - Bilaterally - Cardiovascular Cardiovascular Exam: POSITIVE: RRR - GI/Abdominal GI/Abdominal Exam: POSITIVE: Normal Bowel Sounds, Non Tender, Non Distended, Soft, No Organomegaly - Rectal Rectal Exam: POSITIVE: Deferred - External Exam: POSITIVE: Deferred - Extremities Extremities Exam: POSITIVE: Normal Inspection - Back Back Exam: POSITIVE: Normal Inspection - Neurological Neurological Exam: POSITIVE: Alert, Oriented x 3, CN II-XII Intact - Psychiatric Psychiatric Exam: POSITIVE: Normal Affect - Integumentary Integumentary Exam: POSITIVE: Normal Color Patient Problems - Patient Problem List (1) DKA (diabetic ketoacidoses) Status: Acute Code(s): E13.10 - Other specified diabetes mellitus with ketoacidosis without coma Qualifiers: Diabetes mellitus type: type 1 Diabetes mellitus complication detail: without coma Qualified Code(s): E10.10 - Type 1 diabetes mellitus with ketoacidosis without coma Category: Medical (2) Chronic alcohol abuse Status: Chronic Code(s): F10.10 - Alcohol abuse, uncomplicated Category: Medical (3) Type 1 diabetes mellitus Status: Chronic Comment: MARIA EUGENIA^% Ab positive Code(s): E10.9 - Type 1 diabetes mellitus without complications Qualifiers: Diabetes mellitus complication status: with ketoacidosis Diabetes mellitus complication detail: without coma Qualified Code(s): E10.10 - Type 1 diabetes mellitus with ketoacidosis without coma Category: Medical (4) Acute pancreatitis Status: Acute Code(s): K85.90 - Acute pancreatitis without necrosis or infection, unspecified Qualifiers: Pancreatitis type: alcohol induced Category: Medical (5) Hypertension Status: Acute Code(s): I10 - Essential (primary) hypertension Category: Medical
[2018-02-27] MEDS: Metoprolol TARTRATE Tab 25 MG TAB PO SCH (08:29)
[2018-02-27] MEDS: AmLODIPine Tab 5 MG TABLET PO SCH (08:30)
[2018-02-27] MEDS: Multivitamin Tab 1 TAB PO SCH (08:30)
[2018-02-27] MEDS: NICOTINE 21 MG /DAY PATCH TRANSDERM SCH (08:30)
[2018-02-27] MEDS: ClonazePAM Tab 1 MG TABLET PO SCH (08:30)
[2018-02-27] MEDS ORDERED: Potassium Chloride Tab 10 MEQ TAB PO SCH (09:00)
== END 2018-02-27 08:41 | disposition home or self-care (01) | DRG 637 ==
LOC: ER 10:03 → MED/SURG 14:25 → ICU 17:19 → MED/SURG 02-23 18:31
PROVIDERS: ADMIT Family Medicine; ATTEND Family Medicine

== ENCOUNTER 2018-06-02 04:32 | Inpatient (IN) ==
[2018-06-02] MEDS ORDERED: Prochlorperazine Edisylate Inj 10mg/2ml vial IVP ONE (04:44)
--- NOTE | 2018-06-02 04:44 | PDOC ---
Nausea/Vomiting/Diarrhea HPI - General Chief Complaint: Nausea / Vomiting / Diarrhea Stated Complaint: NAUSEA, VOMITING Date Seen by Provider: 06/02/18 Time Seen by Provider: 04:43 Source: POSITIVE: Patient Exam Limitations: POSITIVE: No limitations - History of Present Illness Initial Comments: Ashley is a 47-year-old female who presents to the emergency department for nausea and vomiting. Patient also indicates she's had diarrhea. Patient reports his symptoms have been present for the last 48 hours. She has vomited innumerable times. Patient is also multiple episodes of diarrhea. It does not sound like there has been in the blood. Patient denies recent antibiotic use. No travel. She does have associated abdominal pain. This starts in the epigastrium and rates the lower when she has diarrhea. No fevers that she is aware of. She indicates she has a history of alcohol abuse but reports being sober over the last month. Patient also reports history of hypomagnesemia and hypokalemia. She feels that her magnesium may be getting low again. - Patient Home Medications Home Medications: Home Medications metoprolol tartrate 25 mg tablet 25 mg PO BID #60 tab 12/07/17 insulin lispro (U-100) 100 unit/mL subcutaneous pen 0 - 14 unit SUBCUT AC HS #3 ml 02/15/18 Potassium Chloride [Klor-Con] 10 meq PO BID #30 tab 02/27/18 insulin glargine (U-100) 100 unit/mL (3 mL) subcutaneous pen 18 unit SUBCUT BEDTIME ml 03/02/18 amlodipine 5 mg tablet 5 mg PO DAILY #30 tab 03/21/18 Levothyroxine Sodium [Synthroid] 50 mcg PO DAILY@0530 #90 tab 04/05/18 zolpidem 10 mg tablet 10 mg PO QHS #30 tab 04/06/18 Losartan Potassium 100 mg PO DAILY #30 tab 04/22/18 omeprazole 40 mg capsule,delayed release 40 mg PO DAILY #30 cap 04/24/18 pen needle, diabetic, safety 30 gauge x 1/3" 0 ea .ROUTE .MEDSUPPLY #1 pkg 05/03 clonazepam 0.5 mg tablet 0.5 mg PO BID PRN #28 tab 05/08/18 Magnesium Oxide [Mag-Ox] 400 mg PO C BK #30 tab 05/21/18 ondansetron 4 mg disintegrating tablet 4 mg PO Q8-12H PRN #30 tab 06/01/18 Blood Sugar Diagnostic [Contour Test Strip] 0 film .ROUTE .MEDSUPPLY 06/02/18 - Patient Allergies Allergies/Adverse Reactions: Allergies 3 Allergy/AdvReac Type Severity Reaction Status Date / Time codeine AdvReac HALLUCINATI Verified 06/02/18 05:04 ONS levofloxacin [From Levaquin] AdvReac HALLUCINATI Verified 06/02/18 05:04 ONS oxycodone AdvReac HALLUCINATI Verified 06/02/18 05:04 ONS Past Medical History - heen HEENT History: Other (please comment) Additional HEENT History: WEARS GLASSES. "BULL'S EYE VISION" Cardiovascular History: Hypertension, Other (please comment) Additional Cardiovasular History: PALPITATIONS Respiratory History: Pneumonia, Snoring, Other (please comment) Additional Respiratory History: chronic tobacco use Gastrointestinal History: GERD, Gallbladder Disease, Pancreatitis, Other ( please comment) Additional Gastrointestinal History: Chronic alcoholism. elevated liver enzymes Genitourinary History: Denies History Endocrine History: Type 1 Diabetes Additional Endocrine History: TYPE [address] LAGUNA Musculoskeletal History: Joint Pain, Other (please comment) Prosthesis or Implant: Yes (BREAST AUGMENTATION) Additional Musculoskeletal History: Pt fell down several stairs and fractured right shoulder. Pt had surgery on shoulder to repair fracture. X2 Neurological History: Seizures, Other (please comment) Additional Neurological History: SEIZURE WITH DETOX Blood Disorders: Denies History Psychiatric History: Depression, Anxiety Disorders, Substance Abuse Additional Psychiatric History: ALCOHOLISM: CHRONIC AND RECURRENT. PANIC DISORDER History of Sexually Transmitted Diseases: No Cancer History: Denies History History of MDRO: Yes Other Type of MDRO: TESTED POSITIVE 2014 FOLLOWED BY 2 NEG SWABS History of Other Communicable Diseases: No (MONO, VARICELLA) Alcohol Use: Heavy In the Past 12 Months, Have Used or Abuse Any Substance: None Previous Surgical History: Yes Type / Date of Surgery: APPENDECTOMY, CHOLECYSTECTOMY, ABDOMINOPLASTY, BREAST AUGMENTATION, Right shoulder surgeryX2 Anesthesia Reactions: No Malignant Hyperthermia: No Significant Family History: Asthma, Heart disease, Cancer, Diabetes, Hypertension Additional Family History: EARLY MENOPAUSE - MOTHER Past Medical History Reviewed: Reviewed - No Changes ROS - Limitations ROS Limitations: No Limitations Constitution: REPORTS: Denies Symptoms Cardiovascular: REPORTS: Denies Cardiac Symptoms Respiratory: REPORTS: Denies Resp Symptoms Neurological: REPORTS: Denies Neuro Symptoms Gastrointestinal: REPORTS: Abdominal Pain, Nausea, Vomitting, Diarrhea Endocrine: REPORTS: Denies Symptoms Musculoskeletal: REPORTS: Denies MS Symptoms Genitourinary: REPORTS: Denies Symptoms Eyes: REPORTS: Denies Symptoms ENT: REPORTS: Denies Symptoms Skin: REPORTS: Denies Skin Symptoms Nausea/Vomiting/Diarrhea Exam - General Appearance General Appearance: POSITIVE: Alert, Cooperative, Anxious - HEENT HEENT: POSITIVE: Head Inspection Nml, Other (Dry mucous membranes) - Neck Neck: POSITIVE: Supple, Normal Inspection - Respiratory Respiratory: POSITIVE: Breath Sounds Normal - Cardiovascular Cardiovascular: POSITIVE: Tachycardia. NEGATIVE: Murmur - Abdomen Additional Abdominal Details: There is mild tenderness to palpation diffusely in the abdomen. No rebound or guarding no masses. No palpable pulsations. - Skin Skin: POSITIVE: Intact, Warm, Dry - Extremities Additional Extremities Details: No edema in the lower extremities bilaterally. - Neurological / Psychological Neurological: POSITIVE: 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, Other (Anxious appearing. No focal deficit.) N/V/D Progress - Results Reviewed by me Lab Results Reviewed by Me: Yes CBC and BMP: 06/02/18 04:45 06/02/18 05:40 Lab Results:: Laboratory Results 3 06/02/18 06/02/18 04:45 05:40 WBC 10.82 H RBC 4.77 Hgb 16.1 H Hct 44.1 MCV 92.5 MCH 33.8 H MCHC 36.5 RDW Std Deviation 47.2 RDW Coeff of Farzad 14.4 Plt Count 407 H MPV 9.3 Immature Gran % (Auto) 1.0 Neut % (Auto) 62.2 Lymph % (Auto) 30.4 [place] % (Auto) 5.0 Eos % (Auto) 0.9 Baso % (Auto) 0.5 Immature Gran # (Auto) 0.11 Neut # (Auto) 6.73 Lymph # (Auto) 3.29 [place] # (Auto) 0.54 Eos # (Auto) 0.10 Baso # (Auto) 0.05 WBC Morphology Comment Normal morphology Plt Morphology Comment Normal morphology RBC Morph Comment Normal morphology Sodium 133 L Potassium 2.9 L Chloride 97 L Carbon Dioxide 18 L Anion Gap 18 BUN 21 Creatinine 3.0 H Estimated GFR 17 BUN/Creatinine Ratio 7.00 Glucose 158 H Calculated Osmolality 281.0 Calcium 9.8 Magnesium 0.8 L* Total Bilirubin 1.2 AST 37 ALT 38 Alkaline Phosphatase 104 Total Protein 7.8 Albumin 4.6 Globulin 3.2 Albumin/Globulin Ratio 1.40 Lipase 42 - Patient's Progress MDM / ED Course: Ashley is a 47-year-old female who presents to the emergency department for evaluation of nausea vomiting and diarrhea. Her vital signs are notable for tachycardia and examination demonstrates some mild diffuse abdominal tenderness. Patient is status post appendectomy and cholecystectomy making acute surgical process unlikely. In her chart review this appears to be a recurrent symptom for patient. Her laboratory studies do demonstrate hypomagnesemia and hypokalemia. She does have a mild leukocytosis. Most concerning there is an elevation in her creatinine which appears to be new. The urine was within normal limits. Patient was rehydrated with a bolus of normal saline also reviewed C at 4 g of magnesium. Given her acute kidney injury as work with the hospitalist who will admit patient for further treatment. Her nausea was controlled here with 10 mg of Compazine. There is no further vomiting. Patient was admitted in stable condition. Patient Care Time - Estimated PCT Patient Care Time (In Minutes): 45 Vital Signs - Recent Vital Signs Vital Signs: Vital Signs (Last 8 hours) Temp Pulse Resp BP Pulse Ox 06/02/18 04:33 96.8 F 120 H 18 124/88 97 - VS Reviewed Vital Signs Reviewed: Yes Discharge Clinical Impression: Renal insufficiency, Hypomagnesemia Discharge Disposition: Admit to Inpatient Condition: Stable Follow Up With: KITTY LAGUNA [Primary Care Provider] - Care Transferred To: Dr. Espinal Decision to Admit to Inpatient: 06/02/18 Time Decision to Admit to Inpatient: 06:50
[2018-06-02] MEDS ORDERED: Sodium Chloride 0.9% 1,000 ML PRIMARY IV ONE ×2 (05:08→06:40)
[2018-06-02 05:14] LABS: BASOPHILS # (AUTO) 0.05 10*3/UL; BASOPHILS % (AUTO) 0.5 % (0-1); EOSINOPHILS % (AUTO) 0.9 % (0-8); Hematocrit [HCT] 44.1 % (37.0-47.0); Hemoglobin [HGB] 16.1 g/dL (12.0-16.0); LYMPHOCYTES # (AUTO) 3.29 10*3/uL; MEAN CORPUSCULAR HEMOGLOBIN 33.8 PG (27-31); MEAN CORPUSCULAR HGB CONC 36.5 g/dL (33-37); MEAN CORPUSCULAR VOLUME 92.5 FL (81-99); MEAN PLATELET VOLUME 9.3 FL (7.4-12.2); MONOCYTES # (AUTO) 0.54 10*3/UL (0.3-0.8); NEUTROPHILS # (AUTO) 6.73 10*3/UL; NEUTROPHILS % (AUTO) 62.2 % (50-80); RED BLOOD COUNT 4.77 10^6/uL (4.20-5.40)
[2018-06-02 05:15] LABS: PLATELET MORPHOLOGY COMMENT NORMAL MORPHOLOGY (NORM); RBC MORPHOLOGY COMMENT NORMAL MORPHOLOGY (NORM); WBC MORPHOLOGY COMMENT NORMAL MORPHOLOGY (NORM)
[2018-06-02 05:52] LABS: SERUM ALBUMIN 4.6 g/dL (3.5-4.8)
[2018-06-02] MEDS ORDERED: Magnesium Sulfate 4gm (Premix) 4 GM/100 ML BAG IV ONE (06:20)
[2018-06-02] MEDS ORDERED: DICYCLOMINE 20 MG TABLET PO ONE (06:38)
[2018-06-02] MEDS ORDERED: ONDANSETRON 4 MG/2 ML VIAL IVP PRN (07:56)
[2018-06-02] MEDS ORDERED: CALCIUM CARBONATE 500 MG (TUMS) CHEWABLE TABLET PO PRN (07:56)
[2018-06-02] MEDS ORDERED: ACETAMINOPHEN 325 MG TABLET PO PRN (07:56)
[2018-06-02] MEDS ORDERED: DOCUSATE 100 MG CAPSULE PO PRN (07:56)
[2018-06-02] MEDS ORDERED: LIDOCAINE W/ SODIUM BICARB 0.5 ML SYR SUBD PRN (07:56)
[2018-06-02] MEDS: Potassium Chloride Tab 10 MEQ TAB PO SCH ×2 (09:30→21:17)
[2018-06-02] MEDS: MAGNESIUM OXIDE 400 MG TABLET PO SCH (09:30)
[2018-06-02] MEDS: PANTOPRAZOLE IV 40 MG VIAL IVP SCH (09:31)
[2018-06-02] MEDS: AmLODIPine Tab 5 MG TABLET PO SCH (09:31)
[2018-06-02] MEDS: ClonazePAM Tab 1 MG TABLET PO PRN (09:31)
[2018-06-02] MEDS: Metoprolol TARTRATE Tab 25 MG TAB PO SCH ×2 (09:31→21:17)
--- NOTE | 2018-06-02 10:17 | PDOC ---
HPI - History of Present Illness Date of Service: 06/02/18 Time of Service: 10:15 Chief Complaint: Abdominal pain with nausea and vomiting History of Present Illness: This is a 47 year female with probable chronic pancreatitis, problems with alcohol abuse, diabetes mellitus type I, severe anxiety, who comes in and planning of abdominal pain with nausea and vomiting that started a couple of days ago. Her pain is isolated in the epigastric region. She is not had any hematemesis. She does not have any blood in the stool. She may have had some when she was wiping. No fevers and no chills. She states that she has not been drinking alcohol socially was somewhat surprised that she started to develop the symptoms. She's noticed a decrease in her urine output but has not noticed any changes in sediment or any foaminess to the urine. In the emergency room, she was found to have her usual electrolyte abnormalities in these situations with hypomagnesemia and hypokalemia, but she also had acute renal failure with a creatinine at 3.0. The BUN to creatinine ratio suggested acute tubular necrosis. The patient's never had that problem before to her recollection. She does not recall a prior EGD. Nothing is made her symptoms better. She states her sleep has been poor throughout the symptoms. Past Medical History Medical History: 1. Hypertension. 2. tobacco abuse. 3. Alcohol abuse, her pattern is typically binge drinking. 4. Chronic pancreatitis, most likely. 5. Psychiatric disorder, unclear what the underlying disorder is. Could be depression, bipolar disorder, or posterior medics stress disorder. 6. Medical noncompliance. 7. Calcification of the pancreas on CT indicating chronic pancreatitis. 8. Diabetes mellitus, type I Surgical History: 1. History of cholecystectomy. 2. Appendectomy. 3. Breast augmentation and tummy tuck. 4. Shoulder surgery Pertinent Family History: The patient is adopted but states her biologic mother had diabetes type I and when she was 4 years of age. She states her father is developing memory problems now. Past Social History: Smokes, lives in [place] with her father. Does not currently work. Binge drinking alcohol pattern. She does have a daughter who is healthy. Tobacco Use: Current Every Day Smoker In the Past 12 Months, Have Used or Abuse Any of the Following Substance: None Alcohol Use: Heavy (though she states she has been abstinent) Medication / Allergies Home Medications: Home Medications 3 Medication Instructions Recorded Confirmed Type metoprolol tartrate 25 mg tablet 25 mg PO BID #60 tab 12/07/17 06/02/18 Rx insulin lispro (U-100) 100 unit/mL 0 - 14 unit SUBCUT AC HS #3 ml 02/15/1806/02 Rx subcutaneous pen Potassium Chloride [Klor-Con] 10 meq PO BID #30 tab 02/27/18 06/02/18 Rx insulin glargine (U-100) 100 18 unit SUBCUT BEDTIME ml 03/02/18 06/02/18 History unit/mL (3 mL) subcutaneous pen amlodipine 5 mg tablet 5 mg PO DAILY #30 tab 03/21/18 06/02/18 Rx Levothyroxine Sodium [Synthroid] 50 mcg PO DAILY@0530 #90 tab 04/05/18 06/02/18 Rx zolpidem 10 mg tablet 10 mg PO QHS #30 tab 04/06/18 06/02/18 Rx Losartan Potassium 100 mg PO DAILY #30 tab 04/22/18 06/02/18 Rx omeprazole 40 mg capsule,delayed 40 mg PO DAILY #30 cap 04/24/18 06/02/18 Rx release pen needle, diabetic, safety 30 0 ea .ROUTE .MEDSUPPLY #1 pkg 05/03/18 06/02/18 Rx gauge x 1/3" clonazepam 0.5 mg tablet 0.5 mg PO BID PRN #28 tab 05/08/18 06/02/18 Rx Magnesium Oxide [Mag-Ox] 400 mg PO C BK #30 tab 05/21/18 06/02/18 Rx ondansetron 4 mg disintegrating 4 mg PO Q8-12H PRN #30 tab 06/01/18 06/02/18 Rx tablet Blood Sugar Diagnostic [Contour 0 film .ROUTE .MEDSUPPLY 06/02/18 06/02/18 History Test Strip] Allergies/Adverse Reactions: Allergies 3 Allergy/AdvReac Type Severity Reaction Status Date / Time codeine AdvReac HALLUCINATI Verified 06/02/18 07:58 ONS levofloxacin [From Levaquin] AdvReac HALLUCINATI Verified 06/02/18 07:58 ONS oxycodone AdvReac HALLUCINATI Verified 06/02/18 07:58 ONS Review of Systems - Review of Systems All Systems: Reviewed & No Additional Complaints Except as Stated (In the history of present illness an exceptions are noted below, 12 systems reviewed) - Respiratory Respiratory: REPORTS: Negative System Review - Cardiovascular Cardiovascular: REPORTS: Negative System Review - Gastrointestinal Gastrointestinal / Abdominal: REPORTS: Nausea, Vomiting, Diarrhea, Abdominal Pain - Genitourinary Genitourinary: REPORTS: Decreased Stream - Musculoskeletal Musculoskeletal: REPORTS: Negative System Review - Psychiatric Psychiatric: REPORTS: Anxiety Exam - Vitals Vital Signs: Vital Signs Temperature 96.8 F Temperature Source Temporal Artery Scan Pulse Rate [Pulse Oximeter] 88 Respiratory Rate 24 Blood Pressure [Left Arm] 117/58 Pulse Ox 99 Oxygen Delivery Method Room Air Height 5 ft 3 in Weight 126 lb 6.4 oz - General General Appearance: No Acute Distress, Cooperative - Head Head Exam: Normal Inspection, Normocephalic, Atraumatic - Eye Eye Exam: POSITIVE: No Scleral Icterus - ENT ENT Exam: POSITIVE: Mucous Membranes Dry - Neck Neck Exam: Normal Inspection, No Tenderness, No Lymphadenopathy, No Thyromegaly - Respiratory Respiratory Exam: POSITIVE: Clear to Auscultation - Bilaterally, Breathing Non Labored - Cardiovascular Cardiovascular Exam: POSITIVE: RRR, No Murmur, No Clicks, No Gallops, No Rubs, No JVD - GI/Abdominal GI/Abdominal Exam: POSITIVE: Normal Bowel Sounds, Non Tender, Non Distended, Soft - Rectal Rectal Exam: POSITIVE: Deferred - External Exam: POSITIVE: Deferred Exam: POSITIVE: Deferred - Extremities Extremities Exam: POSITIVE: No Clubbing Present, No Edema Present, No Cyanosis Present - Neurological Neurological Exam: POSITIVE: Alert, Oriented x 3, No Facial Droop, Speech Intact / Clear, Moves All Extremities Equally - Psychiatric Psychiatric Exam: POSITIVE: Anxious - Integumentary Integumentary Exam: POSITIVE: Normal Color, Warm, Dry, Intact Results - Labs CBC and BMP: 06/02/18 04:45 06/02/18 05:40 Additional Lab Results: Laboratory Results 06/02/18 06/02/18 Range/Units 04:45 05:40 WBC 10.82 H (4.8-10.8) 10^3/uL RBC 4.77 (4.20-5.40) 10^6/uL Hgb 16.1 H (12.0-16.0) g/dL Hct 44.1 (37.0-47.0) % MCV 92.5 (81-99) FL MCH 33.8 H (27-31) PG MCHC 36.5 (33-37) g/dL RDW Std Deviation 47.2 (39-50) fL RDW Coeff of Farzad 14.4 (11.5-14.5) % Plt Count 407 H (140-350) 10*3/uL MPV 9.3 (7.4-12.2) FL Immature Gran % (Auto) 1.0 (0-5) % Neut % (Auto) 62.2 (50-80) % Lymph % (Auto) 30.4 (10-50) % [place] % (Auto) 5.0 (5-15) % Eos % (Auto) 0.9 (0-8) % Baso % (Auto) 0.5 (0-1) % Immature Gran # (Auto) 0.11 10*3/UL Neut # (Auto) 6.73 10*3/UL Lymph # (Auto) 3.29 10*3/uL [place] # (Auto) 0.54 (0.3-0.8) 10*3/UL Eos # (Auto) 0.10 10*3/UL Baso # (Auto) 0.05 10*3/UL WBC Morphology Comment Normal morphology (NORM) Plt Morphology Comment Normal morphology (NORM) RBC Morph Comment Normal morphology (NORM) Sodium 133 L (135-145) meq/L Potassium 2.9 L (3.8-5.2) meq/L Chloride 97 L (98-112) meq/L Carbon Dioxide 18 L (23-33) meq/L Anion Gap 18 (5-20) BUN 21 (7-22) mg/dL Creatinine 3.0 H (0.50-1.20) mg/dL Estimated GFR 17 (>60 ml/min/1.73m(2)) BUN/Creatinine Ratio 7.00 (6-20) Glucose 158 H (78-110) mg/dL Calculated Osmolality 281.0 (267-292) mOsm/kg Calcium 9.8 (8.7-10.7) mg/dL Magnesium 0.8 L* (1.6-2.4) mg/dL Total Bilirubin 1.2 (0.3-1.2) mg/dL AST 37 (8-39) IU/L ALT 38 (9-52) IU/L Alkaline Phosphatase 104 (38-126) IU/L Total Protein 7.8 (6.1-8.0) g/dL Albumin 4.6 (3.5-4.8) g/dL Globulin 3.2 (2.50-4.10) g/dL Albumin/Globulin Ratio 1.40 (1.3-2.0) mg/g Lipase 42 (23-300) IU/L Assessment and Plan - Patient Problems (1) Chronic pancreatitis Current Visit: Yes Status: Chronic Code(s): K86.1 - Other chronic pancreatitis Qualifiers: Pancreatitis type: unspecified pancreatitis type Qualified Code(s): K86.1 - Other chronic pancreatitis (2) Diabetes mellitus Current Visit: Yes Status: Acute Code(s): E11.9 - Type 2 diabetes mellitus without complications Qualifiers: Diabetes mellitus type: type 1 Diabetes mellitus complication status: without complication Qualified Code(s): E10.9 - Type 1 diabetes mellitus without complications (3) Hypokalemia Current Visit: Yes Status: Acute Code(s): E87.6 - Hypokalemia (4) Nausea and vomiting Current Visit: Yes Status: Acute Code(s): R11.2 - Nausea with vomiting, unspecified (5) Hypertension Current Visit: Yes Status: Chronic Code(s): I10 - Essential (primary) hypertension Qualifiers: Hypertension type: essential hypertension Qualified Code(s): I10 - Essential (primary) hypertension (6) Hypomagnesemia Current Visit: Yes Status: Acute Code(s): E83.42 - Hypomagnesemia - Assessment / Plan Additional Assessment/Plan Details: Overall, this patient has come in several times with a repeat nausea or vomiting and abdominal pain. Some episodes are associated with alcohol and some are not. Given that she has a normal lipase, this could be chronic pancreatitis. Other possibilities could include gastroesophageal reflux disease /gastritis/gastroparesis from her diabetes. It may be worth doing a delayed gastric emptying study to look for gastroparesis. Start pancreatic enzymes. Replace electrolytes. IV fluids. Reduce insulin, Lantus dose that she typically has hypoglycemia when we do her home dosing in the settings. Hold off on losartan. The acute renal failure steadily concerning. She could've had acute tubular necrosis develop in the setting of prerenal azotemia and angiotensin receptor mandi, but I like to see how she does over the next 24 hours or so. If her creatinine improves and we can continue to manage care here, but if it doesn't, she may need a psychologist counseling. Discussed the above plan with the patient she agreed. Strict I's and O's.
[2018-06-02] MEDS ORDERED: Glucagon Inj Vial 1 MG/ML VIAL IM PRN (10:21)
[2018-06-02] MEDS ORDERED: DEXTROSE 31 GM GEL PO PRN (10:21)
[2018-06-02] MEDS ORDERED: DEXTROSE 50%-WATER SYRINGE 50 ML SYRINGE IVP PRN (10:21)
[2018-06-02] MEDS ORDERED: Insulin Sliding Scale Protocol SUBCUT PRN (10:21)
[2018-06-02] MEDS: Insulin Lispro Flexpen 300 UNIT/3 ML INSULN.PEN SUBCUT SCH ×3 (11:35→22:43)
[2018-06-02] MEDS: Sodium Chloride 0.9% 1,000 ML PRIMARY IV SCH (11:38)
[2018-06-02] MEDS: NICOTINE 21 MG /DAY PATCH TRANSDERM SCH (11:52)
[2018-06-02] MEDS: LIPASE/PROTEASE/AMYLASE 1 EACH CAPSULE PO SCH ×2 (11:52→17:03)
[2018-06-02 14:10] LABS: BILIRUBIN,URINE SMALL (NEG); CLARITY,URINE CLEAR (CLEAR); COLOR,URINE YELLOW (Y); GLUCOSE, URINE (UA) NEGATIVE (NEG); OCCULT BLOOD,URINE NEGATIVE (NEG); PROTEIN,URINE NEGATIVE (NEG); UROBILINOGEN,URINE 0.2 EU/dL (0.2)
[2018-06-02 14:20] LABS: BACTERIA,URINE MODERATE; RBC,URINE 0-1 /hpf; SQUAMOUS EPITHELIAL CELL,UR RARE; URINE SAMPLE TYPE CLEAN CATCH URINE
[2018-06-02 15:30] LABS: BUN/CREATININE RATIO 10.52 (6-20)
[2018-06-02] MEDS ORDERED: ZOLPIDEM 10 MG TABLET PO SCH (21:00)
[2018-06-02] MEDS ORDERED: Insulin Glargine SoloStar Inj 100 UNIT/ML INSULN.PEN SUBCUT SCH (21:00)
[2018-06-03] MEDS ORDERED: LEVOTHYROXINE 50 MCG TABLET PO SCH (05:30)
[2018-06-03 05:35] LABS: BASOPHILS # (AUTO) 0.05 10*3/UL; EOSINOPHILS # (AUTO) 0.19 10*3/UL; EOSINOPHILS % (AUTO) 3.8 % (0-8); Hematocrit [HCT] 36.6 % (37.0-47.0); Hemoglobin [HGB] 12.4 g/dL (12.0-16.0); LYMPHOCYTES # (AUTO) 2.07 10*3/uL; MEAN CORPUSCULAR HEMOGLOBIN 33.1 PG (27-31); MEAN CORPUSCULAR HGB CONC 33.9 g/dL (33-37); MEAN CORPUSCULAR VOLUME 97.6 FL (81-99); MEAN PLATELET VOLUME 9.6 FL (7.4-12.2); MONOCYTES # (AUTO) 0.28 10*3/UL (0.3-0.8); MONOCYTES % (AUTO) 5.7 % (5-15); NEUTROPHILS # (AUTO) 2.32 10*3/UL; NEUTROPHILS % (AUTO) 46.9 % (50-80); RED BLOOD COUNT 3.75 10^6/uL (4.20-5.40)
[2018-06-03 05:41] LABS: PLATELET MORPHOLOGY COMMENT NORMAL MORPHOLOGY (NORM); RBC MORPHOLOGY COMMENT NORMAL MORPHOLOGY (NORM); WBC MORPHOLOGY COMMENT NORMAL MORPHOLOGY (NORM)
[2018-06-03 05:56] LABS: BUN/CREATININE RATIO 16.36 (6-20)
[2018-06-03] MEDS ORDERED: POTASSIUM CHLORIDE 20 MEQ TAB PO ONE (09:01)
[2018-06-03] MEDS: Sodium Chloride 0.9% 1,000 ML PRIMARY IV SCH ×2 (09:51→14:08)
[2018-06-03] MEDS: Insulin Lispro Flexpen 300 UNIT/3 ML INSULN.PEN SUBCUT SCH ×2 (10:36→12:04)
[2018-06-03] MEDS: LIPASE/PROTEASE/AMYLASE 1 EACH CAPSULE PO SCH ×2 (10:37→11:57)
[2018-06-03] MEDS: MAGNESIUM OXIDE 400 MG TABLET PO SCH (11:57)
[2018-06-03] MEDS: Metoprolol TARTRATE Tab 25 MG TAB PO SCH (11:57)
[2018-06-03] MEDS: ClonazePAM Tab 1 MG TABLET PO PRN (11:57)
[2018-06-03] MEDS: NICOTINE 21 MG /DAY PATCH TRANSDERM SCH (11:57)
[2018-06-03] MEDS: PANTOPRAZOLE IV 40 MG VIAL IVP SCH (11:58)
[2018-06-03] MEDS: AmLODIPine Tab 5 MG TABLET PO SCH (11:58)
[2018-06-03] MEDS: Potassium Chloride Tab 10 MEQ TAB PO SCH (11:58)
[2018-06-03 12:04] VITALS: O2SAT 100
--- NOTE | 2018-06-03 13:00 | DCSUMMARY ---
Hospitalization Summary Hospital Course: Final Discharge Diagnosis: Current Visit Problems Problem Status Onset Code Chronic pancreatitis Chronic K86.1 Diabetes mellitus Acute E11.9 Hypokalemia Acute E87.6 Nausea and vomiting Acute R11.2 Hypertension Chronic I10 Hypomagnesemia Acute E83.42 Renal insufficiency Acute N28.9 Diagnostic Data, Laboratory Data, and Procedures of Signifigance: History and Physical pertinent to Admission: Past Medical History Medical History: 1. Hypertension. 2. tobacco abuse. 3. Alcohol abuse, her pattern is typically binge drinking. 4. Chronic pancreatitis, most likely. 5. Psychiatric disorder, unclear what the underlying disorder is. Could be depression, bipolar disorder, or posterior medics stress disorder. 6. Medical noncompliance. 7. Calcification of the pancreas on CT indicating chronic pancreatitis. 8. Diabetes mellitus, type I Surgical History: 1. History of cholecystectomy. 2. Appendectomy. 3. Breast augmentation and tummy tuck. 4. Shoulder surgery Pertinent Family History: The patient is adopted but states her biologic mother had diabetes type I and when she was 4 years of age. She states her father is developing memory problems now. Past Social History: Smokes, lives in [place] with her father. Does not currently work. Binge drinking alcohol pattern. She does have a daughter who is healthy. Tobacco Use: Current Every Day Smoker Course of Hospitalization: This very nice 47-year-old female well-known to our service with a history of chronic pancreatitis, alcohol abuse but she has not been drinking lately and type I diabetes and severe anxiety. Comes in with nausea vomiting which started a few days ago and started to develop these symptoms and has not been drinking and was surprised to have developed some diarrhea and nausea and vomiting she was found to have low magnesium and low potassium magnesium is now replaced and it is to potassium is been replaced at 3.3 and she is getting another 60 mEq she did set up some acute renal failure with a creatinine of 3 but after rehydration her creatinine is now normal this could also have been a lab error. She is back to her normal self today she has tolerated her food no nausea no vomiting we have added the pancreatic enzymes which I believe helped immensely. She also had the gastric emptying study results are pending. She is not interested in starting Reglan at present time she would like to try the pancreatic enzymes first to see if this takes care of her nausea and vomiting and can digest her food better. She is stable back to her normal self no nausea no vomiting and no pain physical exam is unremarkable as well the case was discussed with patient and nursing at the bedside On the date of discharge, the patient was examined: Gen.: No acute distress, alert, nontoxic Heart: Regular rate and rhythm, no murmurs, clicks, gallops, or rubs Lungs: Clear to auscultation bilaterally, breathing is nonlabored Abdomen/GI: Normal tones on auscultation, soft, nontender, nondistended Musculoskeletal/extremities: No clubbing, cyanosis, or edema Vitals reviewed and are listed below Vital Signs (24 hrs) Temp Pulse Pulse Pulse Pulse Resp BP 06/03/18 12:01 97.3 F 78 18 164/96 06/03/18 08:27 97.2 F 78 16 149/89 06/03/18 07:56 06/03/18 07:00 80 16 06/03/18 04:33 97.3 F 76 16 144/87 06/03/18 03:00 66 06/03/18 01:00 97.6 F 64 16 133/77 06/02/18 20:08 98.0 F 80 18 111/68 06/02/18 19:00 82 80 82 18 06/02/18 16:09 98.2 F 82 18 95/56 06/02/18 15:00 77 Pulse Ox 06/03/18 12:01 100 06/03/18 08:27 98 06/03/18 07:56 96 06/03/18 07:00 06/03/18 04:33 98 06/03/18 03:00 06/03/18 01:00 95 06/02/18 20:08 97 06/02/18 19:00 06/02/18 16:09 95 06/02/18 15:00 Current Visit Problems Problem Status Onset Code Chronic pancreatitis Chronic K86.1 Diabetes mellitus Acute E11.9 Hypokalemia Acute E87.6 Nausea and vomiting Acute R11.2 Hypertension Chronic I10 Hypomagnesemia Acute E83.42 Renal insufficiency Acute N28.9 Assessment and Plan: 1. As per discharge assessments above 2. Disposition: Home 3. Condition on discharge, stable and improved. 4. Diet: regular diet she has been having lower sugars lately 5. Activities: resume normal activities 6. Follow-Up: 1. PCP she will make her own appointment 2. 7. Medications at the Time of Discharge: Home Medications 3 Medication Instructions Recorded Confirmed Type metoprolol tartrate 25 mg tablet 25 mg PO BID #60 tab 12/07/17 06/02/18 Rx insulin lispro (U-100) 100 unit/mL 0 - 14 unit SUBCUT AC HS #3 ml 02/15/1806/02 Rx subcutaneous pen Potassium Chloride [Klor-Con] 10 meq PO BID #30 tab 02/27/18 06/02/18 Rx insulin glargine (U-100) 100 18 unit SUBCUT BEDTIME ml 03/02/18 06/02/18 History unit/mL (3 mL) subcutaneous pen amlodipine 5 mg tablet 5 mg PO DAILY #30 tab 03/21/18 06/02/18 Rx Levothyroxine Sodium [Synthroid] 50 mcg PO DAILY@0530 #90 tab 04/05/18 06/02/18 Rx zolpidem 10 mg tablet 10 mg PO QHS #30 tab 04/06/18 06/02/18 Rx Losartan Potassium 100 mg PO DAILY #30 tab 04/22/18 06/02/18 Rx omeprazole 40 mg capsule,delayed 40 mg PO DAILY #30 cap 04/24/18 06/02/18 Rx release pen needle, diabetic, safety 30 0 ea .ROUTE .MEDSUPPLY #1 pkg 05/03/18 06/02/18 Rx gauge x 1/3" clonazepam 0.5 mg tablet 0.5 mg PO BID PRN #28 tab 05/08/18 06/02/18 Rx Magnesium Oxide [Mag-Ox] 400 mg PO C BK #30 tab 05/21/18 06/02/18 Rx ondansetron 4 mg disintegrating 4 mg PO Q8-12H PRN #30 tab 06/01/18 06/02/18 Rx tablet Blood Sugar Diagnostic [Contour 0 film .ROUTE .MEDSUPPLY 06/02/18 06/02/18 History Test Strip] 8. Time, care, counseling and coordination of care for this discharge is greater than 30 minutes. Exam - Vitals Vital Signs: Vital Signs Temperature 97.3 F Temperature Source Temporal Artery Scan Pulse Rate [Apical] 80 Pulse Rate [Left Radial] 80 Pulse Rate [Pulse Oximeter] 78 Pulse Rate 66 Respiratory Rate 18 Blood Pressure [Left Arm] 164/96 Pulse Ox 100 Oxygen Delivery Method Room Air Height 5 ft 3 in Weight 126 lb 6.4 oz
[2018-06-03 16:28] VITALS: BP 160/95; RESP 20; TEMP 97.4
--- NOTE | 2018-06-05 00:04 | DI ---
Tc-99 SULFUR COLLOID GASTRIC EMPTYING SCAN, 06/03/2018 7:00 AM : Clinical History: Nausea, vomiting and diabetes mellitus. Previous Related Exam: None. The patient was given oatmeal mixed with 1.20 mCi of Tc-99 sulfur colloid. Sequential anterior imagin g at one minute intervals out to 90 minutes was performed. The duration of the lag time before emptyi ng begins is 7 minutes. Gastric T1/2 emptying time was calculated and is 34 minutes. Gastric retentio n at 90 minutes is calculated to be 0 %. Reading: Normal Tc-99 sulfur colloid gastric emptying study. ICD9:
== END 2018-06-03 16:44 | disposition home or self-care (01) | DRG 699 ==
LOC: ER 04:32 → MED/SURG 07:50
PROVIDERS: ADMIT Family Medicine; ATTEND Family Medicine

== ENCOUNTER 2018-07-12 07:29 | Inpatient (IN) ==
[2018-07-12] MEDS ORDERED: Sodium Chloride 0.9% 1,000 ML PRIMARY IV ONE (07:49)
[2018-07-12 07:56] LABS: BILIRUBIN,URINE NEGATIVE (NEG); CLARITY,URINE Slightly Cloudy (CLEAR); COLOR,URINE YELLOW (Y); GLUCOSE, URINE (UA) NEGATIVE (NEG); OCCULT BLOOD,URINE SMALL (NEG); PH,URINE 6.5 (5.0-8.5); PROTEIN,URINE 30 mg/dl (NEG); UROBILINOGEN,URINE 0.2 EU/dL (0.2)
[2018-07-12] MEDS ORDERED: Sodium Chloride 0.9% 1,000 ML, Magnesium Sulfate 2gm (Premix) 50 ML with Multivitamin I... IV ONE ×5 (08:06)
[2018-07-12] MEDS ORDERED: ONDANSETRON 4 MG/2 ML VIAL IVP ONE (08:06)
[2018-07-12] MEDS ORDERED: LORazepam 2 MG/1 ML VIAL IVP ONE (08:07)
[2018-07-12 08:29] LABS: BACTERIA,URINE MANY; SQUAMOUS EPITHELIAL CELL,UR FEW; URINE SAMPLE TYPE CLEAN CATCH URINE
[2018-07-12 08:31] LABS: BASOPHILS % (AUTO) 0.9 % (0-1); EOSINOPHILS # (AUTO) 0.06 10*3/UL; EOSINOPHILS % (AUTO) 0.5 % (0-8); Hematocrit [HCT] 43.8 % (37.0-47.0); Hemoglobin [HGB] 15.6 g/dL (12.0-16.0); LYMPHOCYTES # (AUTO) 2.67 10*3/uL; MEAN CORPUSCULAR HEMOGLOBIN 33.4 PG (27-31); MEAN CORPUSCULAR HGB CONC 35.6 g/dL (33-37); MEAN CORPUSCULAR VOLUME 93.8 FL (81-99); MEAN PLATELET VOLUME 9.3 FL (7.4-12.2); MONOCYTES # (AUTO) 0.38 10*3/UL (0.3-0.8); MONOCYTES % (AUTO) 3.4 % (5-15); NEUTROPHILS # (AUTO) 8.04 10*3/UL; NEUTROPHILS % (AUTO) 71.3 % (50-80); RED BLOOD COUNT 4.67 10^6/uL (4.20-5.40)
[2018-07-12 08:38] LABS: PLATELET MORPHOLOGY COMMENT NORMAL MORPHOLOGY (NORM); RBC MORPHOLOGY COMMENT NORMAL MORPHOLOGY (NORM); WBC MORPHOLOGY COMMENT NORMAL MORPHOLOGY (NORM)
[2018-07-12 08:43] LABS: BLOOD UREA NITROGEN 14 mg/dL (7-22); LIPASE 37 IU/L (23-300); SERUM ALBUMIN 5.1 g/dL (3.5-4.8)
[2018-07-12] MEDS ORDERED: Sodium Chloride 0.9% 1,000 ML with Multivitamin Inj 10 ML, Thiamine Inj 100 MG, Folic A... IV ONE ×10 (08:45→09:00)
--- NOTE | 2018-07-12 08:50 | PDOC ---
Abdomen/Flank HPI - General Chief Complaint: Abdomen Pain Stated Complaint: abd pain Date Seen by Provider: 07/12/18 Time Seen by Provider: 07:50 Source: POSITIVE: Patient Exam Limitations: POSITIVE: No limitations Nurse's Notes Reviewed & Considered: Yes - History of Present Illness Initial Comments: The patient is a 47-year-old female. She presents to the emergency room with a 7 hour history of "alcohol withdrawal "an associated upper abdominal pain. Patient is well-known to this emergency room and has a long-standing history of chronic alcohol abuse. 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 Patient has had an appendectomy, cholecystectomy and abdominal plasty. She has a history of alcoholic pancreatitis and alcohol withdrawal. She also has a history of diabetes and hypertension. She complains of nausea and she is quite tremulous. Body Location Affected: REPORTS: Abdomen (Upper abdominal pain), Other ( Hyperventilation, tremulousness, "alcohol withdrawal ") Timing: REPORTS: Gradual, Getting Worse Duration: <24 hours Severity: Moderate Quality: REPORTS: "Pain" (Epigastric) Abdominal Pain Onset Location: REPORTS: Epigastric Abdominal Pain Radiation: REPORTS: Epigastric Context: DENIES: None (As above) Modifying Factors: improves with: Other (Nausea) Associated Symptoms: REPORTS: Denies symptoms Similar Symptoms Previously: Yes Recent Care Received: REPORTS: Denies Any Prior Injuries Related to Current Complaint?: No - Patient Home Medications Home Medications: Home Medications metoprolol tartrate 25 mg tablet 25 mg PO BID #60 tab 12/07/17 insulin lispro (U-100) 100 unit/mL subcutaneous pen 0 - 14 unit SUBCUT AC HS #3 ml 02/15/18 Potassium Chloride [Klor-Con] 10 meq PO BID #30 tab 02/27/18 insulin glargine (U-100) 100 unit/mL (3 mL) subcutaneous pen 18 unit SUBCUT BEDTIME ml 03/02/18 amlodipine 5 mg tablet 5 mg PO DAILY #30 tab 03/21/18 Levothyroxine Sodium [Synthroid] 50 mcg PO DAILY@0530 #90 tab 04/05/18 zolpidem 10 mg tablet 10 mg PO QHS #30 tab 04/06/18 omeprazole 40 mg capsule,delayed release 40 mg PO DAILY #30 cap 04/24/18 pen needle, diabetic, safety 30 gauge x 1/3" 0 ea .ROUTE .MEDSUPPLY #1 pkg 05/03 Magnesium Oxide [Mag-Ox] 400 mg PO C BK #30 tab 05/21/18 Blood Sugar Diagnostic [Contour Test Strip] 0 film .ROUTE .MEDSUPPLY 06/02/18 clonazepam 0.5 mg tablet 0.5 mg PO BID PRN #28 tab 06/20/18 - Patient Allergies Allergies/Adverse Reactions: Allergies 3 Allergy/AdvReac Type Severity Reaction Status Date / Time codeine AdvReac HALLUCINATI Verified 07/12/18 07:30 ONS levofloxacin [From Levaquin] AdvReac HALLUCINATI Verified 07/12/18 07:30 ONS oxycodone AdvReac HALLUCINATI Verified 07/12/18 07:30 ONS Past Medical History - heen HEENT History: Other (please comment) Additional HEENT History: WEARS GLASSES. "BULL'S EYE VISION" Cardiovascular History: Hypertension, Other (please comment) Additional Cardiovasular History: PALPITATIONS Respiratory History: Pneumonia, Snoring, Other (please comment) Additional Respiratory History: chronic tobacco use Gastrointestinal History: GERD, Gallbladder Disease, Pancreatitis, Other ( please comment) Additional Gastrointestinal History: Chronic alcoholism. elevated liver enzymes Genitourinary History: Denies History Endocrine History: Type 1 Diabetes Additional Endocrine History: TYPE [address] LAGUNA Musculoskeletal History: Joint Pain, Other (please comment) Prosthesis or Implant: Yes (BREAST AUGMENTATION) Additional Musculoskeletal History: Pt fell down several stairs and fractured right shoulder. Pt had surgery on shoulder to repair fracture. X2 Neurological History: Seizures, Other (please comment) Additional Neurological History: SEIZURE WITH DETOX Blood Disorders: Denies History Psychiatric History: Depression, Anxiety Disorders, Substance Abuse Additional Psychiatric History: ALCOHOLISM: CHRONIC AND RECURRENT. PANIC DISORDER History of Sexually Transmitted Diseases: No Cancer History: Denies History History of MDRO: Yes Other Type of MDRO: TESTED POSITIVE 2014 FOLLOWED BY 2 NEG SWABS History of Other Communicable Diseases: No (MONO, VARICELLA) Alcohol Use: Heavy In the Past 12 Months, Have Used or Abuse Any Substance: None Previous Surgical History: Yes Type / Date of Surgery: APPENDECTOMY, CHOLECYSTECTOMY, ABDOMINOPLASTY, BREAST AUGMENTATION, Right shoulder surgeryX2 Anesthesia Reactions: No Malignant Hyperthermia: No Significant Family History: Asthma, Heart disease, Cancer, Diabetes, Hypertension Additional Family History: EARLY MENOPAUSE - MOTHER Past Medical History Reviewed: Reviewed - No Changes ROS - Limitations ROS Limitations: No Limitations, Other (please comment) (Very anxious, tremulous , hyperventilating) Constitution: REPORTS: Denies Symptoms Cardiovascular: REPORTS: Denies Cardiac Symptoms Neurological: REPORTS: Denies Neuro Symptoms Gastrointestinal: REPORTS: Abdominal Pain (See diagram), Nausea Endocrine: REPORTS: Denies Symptoms Musculoskeletal: REPORTS: Denies MS Symptoms Genitourinary: REPORTS: Denies Symptoms Eyes: REPORTS: Denies Symptoms ENT: REPORTS: Denies Symptoms Skin: REPORTS: Denies Skin Symptoms Lympathic: REPORTS: Denies Lympathic Symptoms Immunologic: POSITIVE: Denies Symptoms Psychiatric: POSITIVE: Anxiety Abdominal/Flank Pain PE - General Appearance General Appearance: POSITIVE: Alert, Cooperative, No Evidence of Trauma, Moderate Distress (Due to anxiety, tremulousness, and abdominal pain). NEGATIVE : No Acute Distress - HEENT HEENT: POSITIVE: Head Inspection Nml, Eyes Inspection Nml, Ears Inspection Nml, Nose Inspection Nml, Oral/Dental Inspect. Nml, Pharynx Inspect. Nml, PERRL, EOMI - Neck Neck: POSITIVE: Normal Inspection, No Apparent Injury - Respiratory Respiratory: POSITIVE: No Respiratory Distress, Breath Sounds Normal, Chest Non- Tender - Cardiovascular Cardiovascular: POSITIVE: Regular Rate and Rhythm, Heart Sounds Normal, Equal Pulses, Strong Pulses Peripheral Pulses: Radial (R): 2+, Radial (L): 2+ - Chest Chest: POSITIVE: Non Tender - Abdomen Abdomen: Soft: (All Quadrants), Normal Bowel Sounds: (All Quadrants), No Splenomegaly: (LLQ), (RLQ), No Hepatomegaly: (All Quadrants), No Guarding: (All Quadrants), No Rebound: (All Quadrants), No Palpable Pulse: (All Quadrants), No Palpabale Mass: (All Quadrants), No Distention: (All Quadrants) Additional Abdominal Details: Abdominal examination shows bowel sounds be present. Patient expresses pain on palpation over the upper abdomen, especially the epigastrium, without masses, organomegaly or rebound. - Back Back: POSITIVE: Normal Inspection. 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7 [place] % (Auto) 3.4 L Eos % (Auto) 0.5 Baso % (Auto) 0.9 Immature Gran # (Auto) 0.02 Neut # (Auto) 8.04 Lymph # (Auto) 2.67 [place] # (Auto) 0.38 Eos # (Auto) 0.06 Baso # (Auto) 0.10 WBC Morphology Comment Normal morphology Plt Morphology Comment Normal morphology RBC Morph Comment Normal morphology Ur Collection Type Clean catch urine Urine Color Yellow Urine Clarity Slightly cloudy Urine pH 6.5 Ur Specific [place] 1.020 Urine Protein 30 A Urine Glucose (UA) Negative Urine Ketones 80 Urine Occult Blood Small H Urine Nitrate Positive A Urine Bilirubin Negative Urine Urobilinogen 0.2 Ur Leukocyte Esterase Small Urine RBC 1-3 Urine WBC 5-8 Ur Squamous Epith Cells Few Ur Renal Epithelial Cell None Urine Crystals None Urine Bacteria Many H Urine Casts None Urine Mucus None Urine Trichomonas None Urine Yeast None Ur Culture Indicated? Culture set - Patient's Progress Pain Medication Addressed: POSITIVE: Yes (Patient given 2 g of Ativan and 40 mg of Zantac IV. Patient also started on banana bag of 1 L normal saline, 2 g of magnesium sulfate, 100 mg of time and then 1 mg of vitamin B12. Patient's tremulousness and hyperventilation improved. Patient also states that her pain is less.) School/Work Release Addressed: POSITIVE: Not Applicable Re-examine Time: 09:00 Re-Examine Comment: Complete metabolic panel, amylase, lipase and blood alcohol pending. CT scan abdomen and pelvis with IV contrast pending. Patient feeling better after her Ativan. Banana bag initiated as above. Case turned over to Dr. Masters, emergency physician coming on duty at 9 AM. Status: POSITIVE: Improved, Re-Examined - Consult Counseled: POSITIVE: Patient, RE: Lab Results, RE: DX, RE: Need for F/U Patient Care Time - Estimated PCT Patient Care Time (In Minutes): 45 Vital Signs - Recent Vital Signs Vital Signs: Blood pressure 171/124, heart rate 142, respiratory rate 20, temperature 100.4 F oxygen saturation on room air 95%. - VS Reviewed Vital Signs Reviewed: Yes Discharge Clinical Impression: Abdominal pain, Alcohol abuse, Alcohol withdrawal Discharge Disposition: Other (Care transferred to Dr. Masters at 9 AM) Condition: Fair Follow Up With: KITTY LAGUNA [Primary Care Provider] - Care Transferred To: Dr. Masters at 9 AM
[2018-07-12] MEDS ORDERED: METOPROLOL TARTRATE 5 MG/5 ML VIAL IVP ONE ×2 (09:13→09:40)
[2018-07-12] MEDS ORDERED: cefTRIAXone Inj 2 GM in Sodium Chloride 0.9% 100 ML IV ONE (09:38)
--- NOTE | 2018-07-12 09:41 | EKG ---
[address] [address] Measurements Intervals [place] Rate: 79 P: 25 VT: 154 QRS: 49 QRSD: 88 T: 51 QT: 407 QTc: 441 Interpretive Statements SINUS RHYTHM Since 12/16/2016 no significant changes Electronically Signed On 07-14-18 07:55:36 MDT by Champ Lang MD [email or web address]
--- NOTE | 2018-07-12 09:48 | PDOC ---
Transfer of Care - Care Accepted Time Care Transferred: 08:50 Report from Transferring Physician Received: Yes MDM / ED Course: This is a well-developed, well-nourished, 47-year-old female alcoholic, whose last drink was approximately 7 hours prior to presentation here in the emergency department. She was tremulous, hypertensive, tachycardia, and complaining of epigastric abdominal pain. She received 2 mg of IV Ativan and a banana bag was ordered. At this time I assumed care the only lab results that had returned were a CBC showing white count of just over 11. Pending were CMP, urinalysis, CT scan of her abdomen, amylase and lipase. When I examined the patient I found her to be hypertensive and tachycardic but improved tremulousness. I ordered 5 mg of IV metoprolol and a recheck of her blood pressures 15 minutes subsequently. I am awaiting laboratory and radiological studies. Home Medications: Home Medications metoprolol tartrate 25 mg tablet 25 mg PO BID #60 tab 12/07/17 insulin lispro (U-100) 100 unit/mL subcutaneous pen 0 - 14 unit SUBCUT AC HS #3 ml 02/15/18 Potassium Chloride [Klor-Con] 10 meq PO BID #30 tab 02/27/18 insulin glargine (U-100) 100 unit/mL (3 mL) subcutaneous pen 18 unit SUBCUT BEDTIME ml 03/02/18 amlodipine 5 mg tablet 5 mg PO DAILY #30 tab 03/21/18 Levothyroxine Sodium [Synthroid] 50 mcg PO DAILY@0530 #90 tab 04/05/18 zolpidem 10 mg tablet 10 mg PO QHS #30 tab 04/06/18 omeprazole 40 mg capsule,delayed release 40 mg PO DAILY #30 cap 04/24/18 pen needle, diabetic, safety 30 gauge x 1/3" 0 ea .ROUTE .MEDSUPPLY #1 pkg 05/03 Magnesium Oxide [Mag-Ox] 400 mg PO C BK #30 tab 05/21/18 Blood Sugar Diagnostic [Contour Test Strip] 0 film .ROUTE .MEDSUPPLY 06/02/18 clonazepam 0.5 mg tablet 0.5 mg PO BID PRN #28 tab 06/20/18 Allergies/Adverse Reactions: Allergies codeine Adverse Reaction (Verified 07/12/18 07:30) HALLUCINATIONS levofloxacin [From Levaquin] Adverse Reaction (Verified 07/12/18 07:30) HALLUCINATIONS oxycodone Adverse Reaction (Verified 07/12/18 07:30) HALLUCINATIONS Vital Signs Reviewed: Yes Nurse's Notes Reviewed & Considered: Yes - Pending Patient Care Items Pending Patient Care Items: POSITIVE: Labs, Pain Control, CT / MRI Results - Expected Patient Outcome Tentative Impression of Patient: This is a 47-year-old alcoholic female who is presently withdrawing from alcohol. She is hypertensive and tachycardic. Expected Disposition: POSITIVE: Admit Observation - Re-Evaluation of Patient Re-Examine Time:: 10:30 Disposition of Patient: POSITIVE: Admitted Counseled: POSITIVE: Patient, RE: Lab Results, RE: Radiology Results, RE: DX, RE : Need for F/U Pending Test Results Documented: Yes Clinical Impression Documented: Yes - Results Reviewed Lab Results Reviewed by Me: Yes Lab Results: Laboratory Results 3 07/12/18 07/12/18 07/12/18 07:52 08:00 08:00 WBC RBC Hgb Hct MCV MCH MCHC RDW Std Deviation RDW Coeff of Farzad Plt Count MPV Immature Gran % (Auto) Neut % (Auto) Lymph % (Auto) [place] % (Auto) Eos % (Auto) Baso % (Auto) Immature Gran # (Auto) Neut # (Auto) Lymph # (Auto) [place] # (Auto) Eos # (Auto) Baso # (Auto) WBC Morphology Comment Plt Morphology Comment RBC Morph Comment Sodium Potassium Chloride Carbon Dioxide Anion Gap BUN Creatinine Estimated GFR BUN/Creatinine Ratio Glucose Calculated Osmolality Lactic Acid Calcium Total Bilirubin AST ALT Alkaline Phosphatase CK-MB (CK-2) 0.95 Troponin I Handheld 0.000 Total Protein Albumin Globulin Albumin/Globulin Ratio Amylase Lipase Ur Collection Type Clean catch urine Urine Color Yellow Urine Clarity Slightly cloudy Urine pH 6.5 Ur Specific [place] 1.020 Urine Protein 30 A Urine Glucose (UA) Negative Urine Ketones 80 Urine Occult Blood Small H Urine Nitrate Positive A Urine Bilirubin Negative Urine Urobilinogen 0.2 Ur Leukocyte Esterase Small Urine RBC 1-3 Urine WBC 5-8 Ur Squamous Epith Cells Few Ur Renal Epithelial Cell None Urine Crystals None Urine Bacteria Many H Urine Casts None Urine Mucus None Urine Trichomonas None Urine Yeast None Ur Culture Indicated? Culture set Serum Alcohol 3 08/29/18 08/29/18 08/29/18 08:21 08:21 08:21 WBC 11.27 H RBC 4.67 Hgb 15.6 Hct 43.8 MCV 93.8 MCH 33.4 H MCHC 35.6 RDW Std Deviation 47.5 RDW Coeff of Farzad 14.2 Plt Count 385 H MPV 9.3 Immature Gran % (Auto) 0.2 Neut % (Auto) 71.3 Lymph % (Auto) 23.7 [place] % (Auto) 3.4 L Eos % (Auto) 0.5 Baso % (Auto) 0.9 Immature Gran # (Auto) 0.02 Neut # (Auto) 8.04 Lymph # (Auto) 2.67 [place] # (Auto) 0.38 Eos # (Auto) 0.06 Baso # (Auto) 0.10 WBC Morphology Comment Normal morphology Plt Morphology Comment Normal morphology RBC Morph Comment Normal morphology Sodium 140 Potassium 3.3 L Chloride 100 Carbon Dioxide 19 L Anion Gap 21 H BUN 14 Creatinine 0.7 Estimated GFR > 60 BUN/Creatinine Ratio 20.00 Glucose 179 H Calculated Osmolality 294.0 H Lactic Acid 8.0 H Calcium 11.2 H Total Bilirubin 1.3 H AST 37 ALT 32 Alkaline Phosphatase 117 CK-MB (CK-2) Troponin I Handheld Total Protein 8.6 H Albumin 5.1 H Globulin 3.5 Albumin/Globulin Ratio 1.40 Amylase 68 Lipase 37 Ur Collection Type Urine Color Urine Clarity Urine pH Ur Specific [place] Urine Protein Urine Glucose (UA) Urine Ketones Urine Occult Blood Urine Nitrate Urine Bilirubin Urine Urobilinogen Ur Leukocyte Esterase Urine RBC Urine WBC Ur Squamous Epith Cells Ur Renal Epithelial Cell Urine Crystals Urine Bacteria Urine Casts Urine Mucus Urine Trichomonas Urine Yeast Ur Culture Indicated? Serum Alcohol < 10 EKG Interpreted/Reviewed By Me:: Yes (normal sinus rhythm with a rate of 79 beats a minute and no ST elevations.) EKG Interpretation:: POSITIVE: Normal Sinus Rhythm - Consult Consult (If Yes, Name of Consulting MD & Time Called): Yes (Dr. Dacosta 1030hrs.) Recommendations:: Admission for #1 alcohol withdrawal. #2 urinary tract infection with possible urosepsis. #3 hypo-kalemia Patient Care Time - Estimated PCT Patient Care Time (In Minutes): 30 Vital Signs - Recent Vital Signs Vital Signs: Vital Signs (Last 8 hours) Temp Pulse Pulse Resp BP BP Pulse Ox 07/12/18 09:47 83 186/107 07/12/18 09:16 118 H 195/116 07/12/18 07:30 100.4 F H 142 H 20 171/124 95 - VS Reviewed Vital Signs Reviewed: Yes Discharge Clinical Impression: Abdominal pain, Alcohol abuse, Alcohol withdrawal, Urinary tract infectious disease, Hypercalcemia, Hypokalemia Discharge Disposition: Admit to Observation Condition: Stable Follow Up With: KITTY LAGUNA [Primary Care Provider] - Date Decision to Admit to Inpatient: 07/12/18 Time Decision to Admit to Inpatient: 10:34
--- NOTE | 2018-07-12 10:05 | DI ---
CT Abdomen/Pelvis W Contrast,07/12/2018 8:05 AM: Clinical History: Abdominal pain Previous Exam: May 19, 2018 Findings: Multiple helically acquired CT images are obtained through the abdomen and pelvis without contrast, a nd demonstrate clear lung bases. There is mild diffuse fatty infiltration of the liver. Patient is status post cholecystectomy. The pancreatic duct is prominent and there are dense pancreatic calcifications throughout. The adrena ls and spleen are unremarkable. There are multiple bilateral hypodensities most of which are too small to characterize. One within th e left kidney measures 12 mm, but does not meet strict criteria of a simple cyst although this is bel ieved to be due to some partial volume averaging. The colon is decompressed throughout, and therefore not well evaluated. There is no pericolonic fat s tranding. Peripheral vascular calcifications are seen. Mild degenerative changes of the spine are noted. There is no free air nor free fluid. The urinary bladder is unremarkable. The uterus and ovaries are unrema rkable. There is a renal parenchymal stone within the superior pole of the left kidney. Impression: 1. No acute intra-abdominal pathology. 2. Prominence of the pancreatic duct and a dense calcification within the pancreatic head. This appea robert remains unchanged from the prior exam. 3. Multiple stable renal hypodensities which appear to be too small to characterize. [address] may be appropriate for further evaluation.
[2018-07-12] MEDS ORDERED: Insulin Lispro Flexpen 300 UNIT/3 ML INSULN.PEN SUBCUT ONE (10:57)
--- NOTE | 2018-07-12 11:03 | PDOC ---
HPI - History of Present Illness History of Present Illness: Is a very nice 47-year-old female with history of severe alcoholism very known to well known to our service for multiple admissions last drink was 7 hours prior to presentation to the emergency room where she was found to be hypertensive tachycardic and epigastric abdominal pain was treated with IV fluids Ativan banana bag also CT scan of her abdomen shows no acute findings considering her lactic acid was elevated She will be admitted for alcohol withdrawal syndrome Past Medical History Medical History: 1. Hypertension. 2. tobacco abuse. 3. Alcohol abuse, her pattern is typically binge drinking. 4. Chronic pancreatitis, most likely. 5. Psychiatric disorder, unclear what the underlying disorder is. Could be depression, bipolar disorder, or posterior medics stress disorder. 6. Medical noncompliance. 7. Calcification of the pancreas on CT indicating chronic pancreatitis. 8. Diabetes mellitus, type I Surgical History: 1. History of cholecystectomy. 2. Appendectomy. 3. Breast augmentation and tummy tuck. 4. Shoulder surgery Pertinent Family History: The patient is adopted but states her biologic mother had diabetes type I and when she was 4 years of age. She states her father is developing memory problems now. Past Social History: Smokes, lives in [place] with her father. Does not currently work. Binge drinking alcohol pattern. She does have a daughter who is healthy. In the Past 12 Months, Have Used or Abuse Any of the Following Substance: None Medication / Allergies Home Medications: Home Medications 3 Medication Instructions Recorded Confirmed Type metoprolol tartrate 25 mg tablet 25 mg PO BID #60 tab 12/07/17 07/12/18 Rx insulin lispro (U-100) 100 unit/mL 0 - 14 unit SUBCUT AC HS #3 ml 02/15/1807/12 Rx subcutaneous pen Potassium Chloride [Klor-Con] 10 meq PO BID #30 tab 02/27/18 07/12/18 Rx insulin glargine (U-100) 100 18 unit SUBCUT BEDTIME ml 03/02/18 07/12/18 History unit/mL (3 mL) subcutaneous pen amlodipine 5 mg tablet 5 mg PO DAILY #30 tab 03/21/18 07/12/18 Rx Levothyroxine Sodium [Synthroid] 50 mcg PO DAILY@0530 #90 tab 04/05/18 07/12/18 Rx zolpidem 10 mg tablet 10 mg PO QHS #30 tab 04/06/18 06/25/18 Rx omeprazole 40 mg capsule,delayed 40 mg PO DAILY #30 cap 04/24/18 07/12/18 Rx release pen needle, diabetic, safety 30 0 ea .ROUTE .MEDSUPPLY #1 pkg 05/03/18 07/12/18 Rx gauge x 1/3" Magnesium Oxide [Mag-Ox] 400 mg PO C BK #30 tab 05/21/18 07/12/18 Rx Blood Sugar Diagnostic [Contour 0 film .ROUTE .MEDSUPPLY 06/02/18 07/12/18 History Test Strip] clonazepam 0.5 mg tablet 0.5 mg PO BID PRN #28 tab 06/20/18 07/12/18 Rx Allergies/Adverse Reactions: Allergies 3 Allergy/AdvReac Type Severity Reaction Status Date / Time codeine AdvReac HALLUCINATI Verified 07/12/18 07:30 ONS levofloxacin [From Levaquin] AdvReac HALLUCINATI Verified 07/12/18 07:30 ONS oxycodone AdvReac HALLUCINATI Verified 07/12/18 07:30 ONS Review of Systems - Review of Systems All Systems: Reviewed & No Additional Complaints Except as Stated - Respiratory Respiratory: DENIES: Negative System Review, Cough, Sputum, Dyspnea At Rest, Dyspnea with Exertion, Pleuritic Pain, Hemoptysis, Wheezing, Other, See HPI - Cardiovascular Cardiovascular: DENIES: Negative System Review, Chest Pain, Edema, Syncope, Palpitations, Orthopnea, Paroxysmal Nocturnal Dyspnea, Other, See HPI - Gastrointestinal Gastrointestinal / Abdominal: REPORTS: Abdominal Pain Exam - Vitals Vital Signs: Vital Signs Temperature 100.4 F Temperature Source Temporal Artery Scan Pulse Rate [Pulse Oximeter] 142 Pulse Rate 83 Respiratory Rate 20 Blood Pressure [Left Arm] 171/124 Blood Pressure 186/107 Pulse Ox 95 Oxygen Delivery Method Room Air Height 5 ft 3 in Weight 130 lb - General General Appearance: Cooperative - Respiratory Respiratory Exam: POSITIVE: Clear to Auscultation - Bilaterally, Breathing Non Labored, Normal To Percussion, Normal to Percussion and Palpation - Cardiovascular Cardiovascular Exam: POSITIVE: RRR, No Murmur, No Clicks, No Gallops, No Rubs, PMI Non-Displaced - GI/Abdominal GI/Abdominal Exam: POSITIVE: Normal Bowel Sounds, Non Tender, Non Distended, Soft, No Masses, No Hepatomegaly, No Splenomegaly, No Organomegaly - Extremities Extremities Exam: POSITIVE: No Clubbing Present, No Edema Present, No Cyanosis Present - Neurological Neurological Exam: POSITIVE: Alert, No Facial Droop, Speech Intact / Clear Results - Labs CBC and BMP: 07/12/18 08:21 07/12/18 08:21 Assessment and Plan - Patient Problems (1) Diabetes Current Visit: Yes Status: Acute Code(s): E11.9 - Type 2 diabetes mellitus without complications (2) Abdominal pain Current Visit: Yes Status: Acute Code(s): R10.9 - Unspecified abdominal pain (3) Alcohol withdrawal Current Visit: Yes Status: Acute Code(s): F10.239 - Alcohol dependence with withdrawal, unspecified (4) Hypokalemia Current Visit: Yes Status: Acute Code(s): E87.6 - Hypokalemia (5) Acidosis Current Visit: No Status: Acute Code(s): E87.2 - Acidosis (6) Dehydration Current Visit: No Status: Acute Code(s): E86.0 - Dehydration (7) Chronic alcohol abuse Current Visit: No Status: Chronic Code(s): F10.10 - Alcohol abuse, uncomplicated (8) Chronic pancreatitis Current Visit: No Status: Chronic Code(s): K86.1 - Other chronic pancreatitis Qualifiers: - Assessment / Plan Additional Assessment/Plan Details: #1 alcohol withdrawal syndromepatient will be rehydrated thiamine replacement magnesium and potassium magnesium just ordered. #[address] scan no acute findings lipase is negative repeat lactic acid most likely this is all from alcohol withdrawal #3 electrolyte abnormality we'll replace
[2018-07-12] MEDS ORDERED: MAGNESIUM OXIDE 400 MG TABLET PO SCH ×2 (12:03→21:00)
[2018-07-12] MEDS ORDERED: LORazepam Inj(ETOH withdrawal) 2 MG/ML VIAL IVP PRN (12:03)
[2018-07-12] MEDS ORDERED: OMEPRAZOLE 40 MG CAPSULE PO SCH (12:03)
[2018-07-12] MEDS ORDERED: LIDOCAINE W/ SODIUM BICARB 0.5 ML SYR SUBD PRN (12:03)
[2018-07-12] MEDS ORDERED: ACETAMINOPHEN 500 MG TABLET PO PRN (12:03)
[2018-07-12] MEDS ORDERED: Loperamide Tab 2 MG TABLET PO PRN (12:03)
[2018-07-12] MEDS ORDERED: MAGNESIUM 400 MG/5 ML - 30 ML (MILK OF MAGNESIA) PO PRN (12:03)
[2018-07-12] MEDS ORDERED: MAG HYDROX/AL HYDROX/SIMETH 30 ML SUSP PO PRN (12:03)
[2018-07-12] MEDS: LORazepam Inj(ETOH withdrawal) 2 MG/ML VIAL IVP PRN ×4 (12:28→21:12)
[2018-07-12] MEDS ORDERED: Magnesium Sulfate 4gm (Premix) 4 GM/100 ML BAG IV ONE (12:52)
[2018-07-12] MEDS: THIAMINE 100 MG/1 ML - 2 ML IM SCH (13:00)
[2018-07-12] MEDS: AmLODIPine Tab 5 MG TABLET PO SCH (13:10)
[2018-07-12] MEDS: Metoprolol TARTRATE Tab 25 MG TAB PO SCH ×2 (13:10→20:58)
[2018-07-12] MEDS: Potassium Chloride Tab 10 MEQ TAB PO SCH ×2 (13:10→20:59)
[2018-07-12] MEDS: PANTOPRAZOLE IV 40 MG VIAL IVP SCH (13:10)
[2018-07-12] MEDS: HEPARIN 5000 UNIT/1 ML SUBCUT SCH ×2 (13:11→19:02)
--- NOTE | 2018-07-12 13:17 | DI ---
XR CXR 2VW PA/LAT,07/12/2018 12:03 PM: Clinical History: Elevated lactic acid. Previous Exam: June 25, 2018 Findings: PA and lateral views of the chest are obtained, and demonstrate clear lungs. The cardiomediastinum an d bony thorax are unremarkable. There is screw plate fixation of the proximal right humerus. Impression: No acute disease.
[2018-07-12] MEDS: Insulin Lispro Flexpen 300 UNIT/3 ML INSULN.PEN SUBCUT SCH ×2 (17:22→20:59)
[2018-07-12] MEDS: NICOTINE 21 MG /DAY PATCH TRANSDERM SCH (20:58)
[2018-07-12] MEDS: ZOLPIDEM 10 MG TABLET PO SCH (20:59)
[2018-07-13] MEDS: LORazepam Inj(ETOH withdrawal) 2 MG/ML VIAL IVP PRN ×9 (00:11→20:40)
[2018-07-13] MEDS: ONDANSETRON 4 MG/2 ML VIAL IVP PRN (00:11)
[2018-07-13] MEDS: HEPARIN 5000 UNIT/1 ML SUBCUT SCH ×3 (03:12→20:29)
[2018-07-13] MEDS: LEVOTHYROXINE 50 MCG TABLET PO SCH (05:00)
[2018-07-13] MEDS: Insulin Lispro Flexpen 300 UNIT/3 ML INSULN.PEN SUBCUT SCH ×4 (06:46→20:49)
[2018-07-13] MEDS ORDERED: Patch Removal PATCH TRANSDERM SCH ×2 (09:00→21:00)
[2018-07-13] MEDS: AmLODIPine Tab 5 MG TABLET PO SCH (09:11)
[2018-07-13] MEDS: Potassium Chloride Tab 10 MEQ TAB PO SCH ×2 (09:11→20:30)
[2018-07-13] MEDS: Metoprolol TARTRATE Tab 25 MG TAB PO SCH ×2 (09:11→20:30)
[2018-07-13] MEDS: PANTOPRAZOLE IV 40 MG VIAL IVP SCH (09:11)
[2018-07-13] MEDS: NICOTINE 21 MG /DAY PATCH TRANSDERM SCH (09:17)
[2018-07-13] MEDS: THIAMINE 100 MG/1 ML - 2 ML IM SCH (09:23)
[2018-07-13] MEDS: cefTRIAXone Inj 2 GM in Sodium Chloride 0.9% 100 ML IV SCH (11:41)
--- NOTE | 2018-07-13 14:38 | PDOC(PROG) ---
Date of Service: 07/13/18 Time of Service: 14:32 Interval History: complains of epigastric pain. States that she has nausea and cannot tolerate a lot of solid intake at this time. No fevers. I did review chart and spoke with Dr. Dacosta and the patient was actually afebrile on admission with a urinalysis consistent with urinary tract infection. In addition CT scan although showing a lot of calcifications in the pancreatic head shows a prominent pancreatic duct. I did review prior abdominal MRI scan from 2014 and it did not reveal any evidence of obstruction. She stated to me that she cannot take pancreatic enzymes because of the cost. She states to me that she continually has abdominal pain between admissions but that seems to get worse when she needs to be admitted. Objective : Data - Labs CBC and BMP: 07/12/18 08:21 07/12/18 08:21 Additional Lab Results: 01/02/18 03/24/18 13:45 04:15 Hemoglobin A1c 6.22 H C-Peptide 4.1 MARIA EUGENIA Antibody 0.97 nmol/l Interestingly, the maria eugenia antibody is positive and she has a normal range C-peptide , so I suspect that she is still producing minimal amounts of insulin and is likely in the "honeymoon" phase. Objective : Exam - General General Appearance: No Acute Distress, Cooperative Additional General Exam Details: Vital Signs - Last Taken Temperature 97.8 F 07/13/18 11:43 Pulse Rate 94 07/13/18 11:43 Respiratory Rate 18 07/13/18 11:43 Blood Pressure 163/101 07/13/18 11:43 Pulse Ox 98 07/13/18 11:12 - Eye Eye Exam: No Scleral Icterus - ENT ENT Exam: Mucous Membranes Dry - Respiratory Respiratory Exam: Clear to Auscultation - Bilaterally, Breathing Non Labored - Cardiovascular Cardiovascular Exam: RRR, No Murmur, No Clicks, No Gallops, No Rubs, No JVD - GI/Abdominal GI/Abdominal Exam: Normal Bowel Sounds, Non Tender, Non Distended, Soft - Extremities Extremities Exam: No Clubbing Present, No Edema Present, No Cyanosis Present - Neurological Neurological Exam: Alert, Oriented x 3, No Facial Droop, Speech Intact / Clear, Moves All Extremities Equally - Psychiatric Psychiatric Exam: Anxious Assessment and Plan - Patient Problems (1) Chronic pancreatitis Current Visit: Yes Status: Chronic Code(s): K86.1 - Other chronic pancreatitis Qualifiers: Pancreatitis type: alcohol induced Qualified Code(s): K86.0 - Alcohol- induced chronic pancreatitis (2) Chronic alcohol abuse Current Visit: Yes Status: Chronic Code(s): F10.10 - Alcohol abuse, uncomplicated (3) Hypokalemia Current Visit: Yes Status: Acute Code(s): E87.6 - Hypokalemia (4) Acidosis Current Visit: No Status: Acute Code(s): E87.2 - Acidosis (5) Dehydration Current Visit: No Status: Acute Code(s): E86.0 - Dehydration (6) Abdominal pain Current Visit: Yes Status: Acute Code(s): R10.9 - Unspecified abdominal pain (7) Alcohol withdrawal Current Visit: Yes Status: Acute Code(s): F10.239 - Alcohol dependence with withdrawal, unspecified Qualifiers: Complication of substance-induced condition: uncomplicated Qualified Code(s ): F10.230 - Alcohol dependence with withdrawal, uncomplicated (8) Diabetes Current Visit: Yes Status: Acute Code(s): E11.9 - Type 2 diabetes mellitus without complications Qualifiers: Diabetes mellitus type: type 1 Diabetes mellitus complication status: without complication Qualified Code(s): E10.9 - Type 1 diabetes mellitus without complications - Assessment / Plan Additional Assessment/Plan Details: Review of prior laboratory workup does confirm type I diabetes with a normal C- peptide level so I suspect she is producing minimal amounts of insulin, but is still within the first year diagnosis of this could be the "honeymoon" phase. Reduce insulin tonight, continue before meals and at bedtime just blood sugar checks with correction dose as necessary. IV fluids with potassium. Resume pancreatic enzymes while here. Continue antiemetics and pain medications (IV). Check hemoglobin A1c, microalbuminuria in the morning as it's unlikely the patient will be able to check these on an outpatient basis given her erratic follow-up. Replace electrolyte as necessary.
[2018-07-13] MEDS ORDERED: CYANOCOBALAMIN 1000 MCG/1 ML VIAL IM ONE (14:54)
[2018-07-13] MEDS: HYDROmorphone 2 MG/1 ML IVP PRN ×2 (14:56→20:40)
[2018-07-13] MEDS: LIPASE/PROTEASE/AMYLASE 1 EACH CAPSULE PO SCH (16:51)
[2018-07-13] MEDS: ZOLPIDEM 10 MG TABLET PO SCH (20:30)
[2018-07-13] MEDS ORDERED: Insulin Glargine SoloStar Inj 100 UNIT/ML INSULN.PEN SUBCUT SCH (21:00)
[2018-07-13] MEDS ORDERED: NICOTINE 21 MG /DAY PATCH TRANSDERM SCH (21:00)
[2018-07-14] MEDS: HYDROmorphone 2 MG/1 ML IVP PRN ×4 (01:26→12:36)
[2018-07-14] MEDS: HEPARIN 5000 UNIT/1 ML SUBCUT SCH ×2 (04:49→11:28)
[2018-07-14] MEDS: LEVOTHYROXINE 50 MCG TABLET PO SCH (04:49)
[2018-07-14 05:46] LABS: HEMOGLOBIN A1C 6.49 % (4.2-6.0)
[2018-07-14 05:57] LABS: BLOOD UREA NITROGEN 4 mg/dL (7-22); SERUM ALBUMIN 3.6 g/dL (3.5-4.8)
[2018-07-14] MEDS: LIPASE/PROTEASE/AMYLASE 1 EACH CAPSULE PO SCH ×2 (07:08→11:28)
[2018-07-14] MEDS: Insulin Lispro Flexpen 300 UNIT/3 ML INSULN.PEN SUBCUT SCH ×3 (07:08→16:29)
[2018-07-14] MEDS: LORazepam Inj(ETOH withdrawal) 2 MG/ML VIAL IVP PRN ×2 (07:17→14:36)
[2018-07-14] MEDS: ONDANSETRON 4 MG/2 ML VIAL IVP PRN ×2 (07:17→16:31)
[2018-07-14] MEDS: THIAMINE 100 MG/1 ML - 2 ML IM SCH (08:34)
[2018-07-14] MEDS: Metoprolol TARTRATE Tab 25 MG TAB PO SCH (08:34)
[2018-07-14] MEDS: Potassium Chloride Tab 10 MEQ TAB PO SCH (08:35)
[2018-07-14] MEDS: PANTOPRAZOLE IV 40 MG VIAL IVP SCH (08:35)
[2018-07-14] MEDS ORDERED: AmLODIPine Tab 5 MG TABLET PO SCH (09:00)
[2018-07-14] MEDS ORDERED: Magnesium Sulfate 4gm (Premix) 4 GM/100 ML BAG IV ONE (11:25)
[2018-07-14] MEDS: cefTRIAXone Inj 2 GM in Sodium Chloride 0.9% 100 ML IV SCH (11:28)
[2018-07-14 14:31] VITALS: BP 166/93; RESP 18; TEMP 98
[2018-07-14 15:01] VITALS: O2SAT 95
--- NOTE | 2018-07-14 15:44 | DCSUMMARY ---
Hospitalization Summary Admit Date: 07/12/2018 Discharge Date: 07/14/18 Primary Diagnosis:: acute flare of chronic pancreatitis Secondary Diagnosis:: Withdrawal from alcohol Hospital Course: This is a 47 year old female well known to the hospital service with chronic health issues related to alcoholism. She had acute alcohol withdrawal develop and came in for alcohol withdrawal syndrome. She also had abdominal pain that was related to her chronic pancreatitis. She stated she cannot afford pancreatic enzymes. She states she did not drink much alcohol but it seemed to flare her abdominal pain quite significantly. Electrolyte replacement in the hospital stay and the patient had 4 g of magnesium on the day of discharge. Today, she stated she was ready to go home. I did discuss with her that she also has a urinary tract infection, and it appears as Acute cystitis, and it's Escherichia coli which is sensitive to cefazolin so we will prescribe Keflex 1000 mg twice a day for 3 more days for total of 5 days of therapy. She was eating watermelon prior to discharge with no nausea or vomiting. I discussed with her that her chronic pancreatitis is likely to cause chronic abdominal pain if she continues to do any drinking of alcohol, and obviously discussed that it could kill her if she continues to drink alcohol. In terms of pancreatic enzymes because of her inability to afford prescription, I recommended [id number] pancreatic enzyme supplements. Assessment and Plan: 1. As per discharge assessments noted 2. Disposition: Discharged home 3. Condition on discharge, stable and improved. 4. Diet: regular diet 5. Activities: resume normal activities, but no alcohol and stop smoking 6. Follow-Up: 1. See Dr. Mcallister in one week 2. 7. Medications at the Time of Discharge: Home Medications 3 Medication Instructions Recorded Confirmed Type metoprolol tartrate 25 mg tablet 25 mg PO BID #60 tab 12/07/17 07/12/18 Rx insulin lispro (U-100) 100 unit/mL 0 - 14 unit SUBCUT AC HS #3 ml 02/15/1807/12 Rx subcutaneous pen Potassium Chloride [Klor-Con] 10 meq PO BID #30 tab 02/27/18 07/12/18 Rx insulin glargine (U-100) 100 18 unit SUBCUT BEDTIME ml 03/02/18 07/12/18 History unit/mL (3 mL) subcutaneous pen amlodipine 5 mg tablet 5 mg PO DAILY #30 tab 03/21/18 07/12/18 Rx Levothyroxine Sodium [Synthroid] 50 mcg PO DAILY@0530 #90 tab 04/05/18 07/12/18 Rx zolpidem 10 mg tablet 10 mg PO QHS #30 tab 04/06/18 07/12/18 Rx omeprazole 40 mg capsule,delayed 40 mg PO DAILY #30 cap 04/24/18 07/12/18 Rx release pen needle, diabetic, safety 30 0 ea .ROUTE .MEDSUPPLY #1 pkg 05/03/18 07/12/18 Rx gauge x 1/3" Magnesium Oxide [Mag-Ox] 400 mg PO C BK #30 tab 05/21/18 07/12/18 Rx Blood Sugar Diagnostic [Contour 0 film .ROUTE .MEDSUPPLY 06/02/18 07/12/18 History Test Strip] clonazepam 0.5 mg tablet 0.5 mg PO BID PRN #28 tab 06/20/18 07/12/18 Rx Cephalexin [Keflex] 1,000 mg PO Q12H #12 cap 07/14/18 Rx 8. Time, care, counseling and coordination of care for this discharge is greater than 30 minutes. Exam - Vitals Vital Signs: Vital Signs Temperature 98 F Temperature Source Temporal Artery Scan Pulse Rate [Pulse Oximeter] 88 Pulse Rate 88 Respiratory Rate 18 Blood Pressure [Left Arm] 155/96 Blood Pressure 166/93 Pulse Ox 95 Oxygen Flow Rate 1 Oxygen Delivery Method Room Air Height 5 ft 3 in Weight 131 lb 6.4 oz - General General Appearance: No Acute Distress, Cooperative - ENT ENT Exam: POSITIVE: Mucous Membranes Moist - Respiratory Respiratory Exam: POSITIVE: Clear to Auscultation - Bilaterally, Breathing Non Labored - Cardiovascular Cardiovascular Exam: POSITIVE: RRR, No Murmur, No Clicks, No Gallops, No Rubs, No JVD - GI/Abdominal GI/Abdominal Exam: POSITIVE: Normal Bowel Sounds, Non Tender, Non Distended, Soft - Extremities Extremities Exam: POSITIVE: No Clubbing Present, No Edema Present, No Cyanosis Present - Neurological Neurological Exam: POSITIVE: Alert, Oriented x 3, No Facial Droop, Speech Intact / Clear, Moves All Extremities Equally Data Peritnent Studies: 07/12/18 07/12/18 07/12/18 07:52 08:21 08:21 WBC 11.27 H Hgb 15.6 Hct 43.8 Plt Count 385 H Sodium Potassium Chloride Carbon Dioxide Anion Gap BUN Creatinine Estimated GFR BUN/Creatinine Ratio Glucose Mean Blood Glucose Hemoglobin A1c Calculated Osmolality Lactic Acid Calcium Magnesium Total Bilirubin AST ALT Alkaline Phosphatase Total Protein Albumin Globulin Albumin/Globulin Ratio Urine Protein 30 A Urine Occult Blood Small H Urine Nitrate Positive A Urine Bacteria Many H Ur Culture Indicated? Culture set Serum Alcohol < 10 07/14/18 07/14/18 07/14/18 05:00 05:00 05:00 WBC Hgb Hct Plt Count Sodium 137 Potassium 4.0 Chloride 108 Carbon Dioxide 23 Anion Gap 6 BUN 4 L Creatinine 0.5 Estimated GFR > 60 BUN/Creatinine Ratio 8.00 Glucose 100 Mean Blood Glucose 130.117 Hemoglobin A1c 6.49 H Calculated Osmolality 280.0 Lactic Acid 0.6 L Calcium 9.2 Magnesium 1.3 L Total Bilirubin 1.2 AST 244 H ALT 130 H D Alkaline Phosphatase 93 Total Protein 6.0 L Albumin 3.6 Globulin 2.4 L Albumin/Globulin Ratio 1.50 Urine Protein Urine Occult Blood Urine Nitrate Urine Bacteria Ur Culture Indicated? Serum Alcohol Patient Problems - Patient Problem List (1) Alcohol withdrawal Current Visit: Yes Status: Acute Code(s): F10.239 - Alcohol dependence with withdrawal, unspecified Qualifiers: Complication of substance-induced condition: uncomplicated Qualified Code(s ): F10.230 - Alcohol dependence with withdrawal, uncomplicated Category: Medical (2) Chronic pancreatitis Current Visit: Yes Status: Chronic Code(s): K86.1 - Other chronic pancreatitis Qualifiers: Pancreatitis type: alcohol induced Qualified Code(s): K86.0 - Alcohol- induced chronic pancreatitis Category: Medical (3) Chronic alcohol abuse Current Visit: Yes Status: Chronic Code(s): F10.10 - Alcohol abuse, uncomplicated Category: Medical (4) Hypokalemia Current Visit: Yes Status: Acute Code(s): E87.6 - Hypokalemia Category: Medical (5) Acidosis Current Visit: No Status: Acute Code(s): E87.2 - Acidosis Category: Medical (6) Dehydration Current Visit: No Status: Acute Code(s): E86.0 - Dehydration Category: Medical (7) Abdominal pain Current Visit: Yes Status: Acute Code(s): R10.9 - Unspecified abdominal pain Category: Medical (8) Diabetes Current Visit: Yes Status: Acute Code(s): E11.9 - Type 2 diabetes mellitus without complications Qualifiers: Diabetes mellitus type: type 1 Diabetes mellitus complication status: without complication Qualified Code(s): E10.9 - Type 1 diabetes mellitus without complications Category: Medical
[2018-07-15] MEDS ORDERED: Multivitamin Tab 1 TAB PO SCH (09:00)
== END 2018-07-14 16:55 | disposition home or self-care (01) | DRG 440 ==
LOC: ER 07:29 → MED/SURG 11:55
PROVIDERS: ADMIT Internal Medicine; ATTEND Internal Medicine

== ENCOUNTER 2018-10-17 16:57 | Inpatient (IN) ==
[2018-10-17] MEDS ORDERED: Sodium Chloride 0.9% 1,000 ML PRIMARY IV ONE (17:13)
[2018-10-17] MEDS ORDERED: ONDANSETRON 4 MG/2 ML VIAL IVP ONE (17:13)
[2018-10-17] MEDS ORDERED: HYDROmorphone 2 MG/1 ML IVP ONE (17:15)
[2018-10-17 18:04] LABS: BASOPHILS # (AUTO) 0.05 10*3/UL; BASOPHILS % (AUTO) 1.3 % (0-1); EOSINOPHILS # (AUTO) 0.05 10*3/UL; EOSINOPHILS % (AUTO) 1.3 % (0-8); Hematocrit [HCT] 40.5 % (37.0-47.0); Hemoglobin [HGB] 14.6 g/dL (12.0-16.0); MEAN CORPUSCULAR HEMOGLOBIN 34.2 PG (27-31); MEAN CORPUSCULAR VOLUME 94.8 FL (81-99); MEAN PLATELET VOLUME 9.3 FL (7.4-12.2); MONOCYTES # (AUTO) 0.19 10*3/UL (0.3-0.8); MONOCYTES % (AUTO) 4.8 % (5-15); NEUTROPHILS # (AUTO) 2.33 10*3/UL; NEUTROPHILS % (AUTO) 59.4 % (50-80); RED BLOOD COUNT 4.27 10^6/uL (4.20-5.40)
[2018-10-17 18:05] LABS: PLATELET MORPHOLOGY COMMENT NORMAL MORPHOLOGY (NORM); RBC MORPHOLOGY COMMENT NORMAL MORPHOLOGY (NORM); WBC MORPHOLOGY COMMENT NORMAL MORPHOLOGY (NORM)
[2018-10-17 18:13] LABS: SERUM ALBUMIN 4.9 g/dL (3.5-4.8)
[2018-10-17] MEDS ORDERED: D5-1/2NS + 40mEq KCL 1,000 ML, Magnesium Sulfate 2gm (Premix) 50 ML with Multivitamin I... IV ONE ×5 (18:26)
[2018-10-17 19:54] VITALS: BP 182/118; RESP 20; TEMP 97.7; O2SAT 98
[2018-10-17] MEDS ORDERED: MAGNESIUM 400 MG/5 ML - 30 ML (MILK OF MAGNESIA) PO PRN (20:06)
[2018-10-17] MEDS ORDERED: MAG HYDROX/AL HYDROX/SIMETH 30 ML SUSP PO PRN (20:06)
[2018-10-17] MEDS ORDERED: LORazepam Inj(ETOH withdrawal) 2 MG/ML VIAL IVP PRN (20:06)
[2018-10-17] MEDS ORDERED: Loperamide Tab 2 MG TABLET PO PRN (20:06)
[2018-10-17] MEDS ORDERED: LIDOCAINE W/ SODIUM BICARB 0.5 ML SYR SUBD PRN (20:06)
[2018-10-17] MEDS ORDERED: Insulin Glargine SoloStar Inj 100 UNIT/ML INSULN.PEN SUBCUT SCH (21:00)
[2018-10-17] MEDS: ZOLPIDEM 10 MG TABLET PO SCH (21:08)
[2018-10-17] MEDS: HEPARIN 5000 UNIT/1 ML SUBCUT SCH (21:08)
[2018-10-17] MEDS: Potassium Chloride Tab 10 MEQ TAB PO SCH (21:08)
[2018-10-17] MEDS: MAGNESIUM OXIDE 400 MG TABLET PO SCH (21:08)
[2018-10-17] MEDS: Metoprolol TARTRATE Tab 25 MG TAB PO SCH (21:08)
[2018-10-17] MEDS: Promethazine Tab 25 MG TAB PO PRN (21:08)
--- NOTE | 2018-10-17 21:12 | DI ---
XR ABDOMEN KUB UPRIGHT 10/17/2018 5:14 PM HISTORY: [facility] [place] [facility] ^Abdominal Pain Comparison: CT abdomen/pelvis 09/28/2018. Findings: Upright views of the abdomen demonstrate stool and gas in the distribution of the colon to the distal rectum with no dilated loops of bowel. No bowel air-fluid levels identified. No free air i s seen below the diaphragm. Coarse calcifications project over the midabdomen and left upper quadrant , consistent with known nephroliths and pancreatic calcifications. The visualized osseous structures are within the range of normal for age. Surgical clips project over the right upper quadrant. An oval calcification projects over the right midabdomen. The lung bases are clear and heart size is within normal limits. Impression: 1. Nonobstructive bowel gas pattern. 2. Coarse calcifications project over the midabdomen and left upper quadrant, consistent with known n ephroliths and pancreatic calcifications.
[2018-10-17] MEDS: LORazepam Inj(ETOH withdrawal) 2 MG/ML VIAL IVP PRN (21:15)
--- NOTE | 2018-10-17 21:43 | PDOC ---
HPI - History of Present Illness History of Present Illness: This very nice 48-year-old female well-known to our service with multiple admissions for alcohol withdrawal and pancreatitis nausea vomiting and electrolyte imbalance which is mainly why she is coming in tonight. She has been drinking heavily for the past 3 or 4 days. She consumes a bottle of vodka daily last drink was today he also complains of abdominal pain nausea and vomiting denies chest pain Past Medical History Medical History: 1. Hypertension. 2. tobacco abuse. 3. Alcohol abuse, her pattern is typically binge drinking. 4. Chronic pancreatitis, most likely. 5. Psychiatric disorder, unclear what the underlying disorder is. Could be depression, bipolar disorder, or posterior medics stress disorder. 6. Medical noncompliance. 7. Calcification of the pancreas on CT indicating chronic pancreatitis. 8. Diabetes mellitus, type I Surgical History: 1. History of cholecystectomy. 2. Appendectomy. 3. Breast augmentation and tummy tuck. 4. Shoulder surgery Family History: Reviewed an Not Pertinent Pertinent Family History: The patient is adopted but states her biologic mother had diabetes type I and when she was 4 years of age. She states her father is developing memory problems now. Past Social History: Smokes, lives in [place] with her father. Does not currently work. Binge drinking alcohol pattern. She does have a daughter who is healthy. Tobacco Use: Current Every Day Smoker In the Past 12 Months, Have Used or Abuse Any of the Following Substance: Marijuana Medication / Allergies Home Medications: Home Medications Medication Instructions Recorded Confirmed Type insulin lispro (U- 100) 100 0 - 14 unit SUBCUT AC HS #3 ml 02/15/18 10/17/18 Rx unit/mL subcutaneous pen Potassium Chloride [Klor-Con] 10 meq PO BID #30 tab 02/27/18 10/17/18 Rx insulin glargine (U-100) 100 18 unit SUBCUT BEDTIME ml 03/02/18 10/17/18 History unit/mL (3 mL) subcutaneous pen Levothyroxine Sodium [Synthroid] 50 mcg PO DAILY@0530 #90 tab 04/05/18 10/17/18 Rx omeprazole 40 mg capsule,delayed 40 mg PO DAILY #30 cap 04/24/18 10/17/18 Rx release pen needle, diabetic, safety 30 0 ea .ROUTE .MEDSUPPLY #1 pkg 05/03/18 10/17/18 Rx gauge x 1/3" Blood Sugar Diagnostic [Contour 0 film .ROUTE .MEDSUPPLY 06/02/18 10/17/18 History Test Strip] Promethazine HCl [Phenergan] 25 mg PO Q4H PRN #10 tab 07/14/18 10/17/18 Rx chlordiazepoxide 25 mg capsule 25 mg PO Q8H PRN #15 cap 07/21/18 10/17/18 Rx ondansetron HCl 4 mg tablet 4 mg PO Q6H PRN #30 tab 07/25/18 10/17/18 Rx metoprolol tartrate 25 mg tablet 25 mg PO BID #60 tab 08/11/18 10/17/18 Rx zolpidem 10 mg tablet 10 mg PO QHS #30 tab 08/11/18 10/17/18 Rx amlodipine 5 mg tablet 5 mg PO DAILY #30 tab 09/06/18 10/17/18 Rx Allergies/Adverse Reactions: Allergies Allergy/AdvReac Type Severity Reaction Status Date / Time codeine AdvReac HALLUCINATI Verified 10/17/18 17:00 ONS levofloxacin [From Levaquin] AdvReac HALLUCINATI Verified 10/17/18 17:00 ONS oxycodone AdvReac HALLUCINATI Verified 10/17/18 17:00 ONS Review of Systems - Respiratory Respiratory: DENIES: Negative System Review, Cough, Sputum, Dyspnea At Rest, Dyspnea with Exertion, Pleuritic Pain, Hemoptysis, Wheezing, Other, See HPI - Cardiovascular Cardiovascular: DENIES: Negative System Review, Chest Pain, Edema, Syncope, Palpitations, Orthopnea, Paroxysmal Nocturnal Dyspnea, Other, See HPI - Gastrointestinal Gastrointestinal / Abdominal: REPORTS: Nausea, Vomiting, Abdominal Pain. DENIES: Negative System Review, Diarrhea, Constipation, Bloody Stool, Poor Appetite, Heartburn, Regurgitation, Bloating, Lactose Intolerance, Melena, Bright Red Blood per Rectum, Other, See HPI Exam - Vitals Vital Signs: Vital Signs Temperature 97.4 F Temperature Source Temporal Artery Scan Pulse Rate [Bilateral Radial] 100 Pulse Rate 114 Respiratory Rate 20 Blood Pressure [Left Arm] 158/93 Blood Pressure 113/83 Pulse Ox 95 Oxygen Delivery Method Room Air Height 5 ft 3 in Weight 123 lb 4.8 oz - General General Appearance: Mild Distress - Neck Neck Exam: Normal Inspection, Full ROM, No Tenderness, No Lymphadenopathy, No Thyromegaly, JVP is not Raised - Respiratory Respiratory Exam: POSITIVE: Clear to Auscultation - Bilaterally, Breathing Non Labored, Normal To Percussion, Normal to Percussion and Palpation - Cardiovascular Cardiovascular Exam: POSITIVE: RRR, No Murmur, No Clicks, No Gallops, No Rubs, PMI Non-Displaced - GI/Abdominal Additional GI/Abdominal Exam Details: Left lower quadrant pain no guarding or rebound - Extremities Extremities Exam: POSITIVE: No Clubbing Present, No Edema Present, No Cyanosis Present Results - Labs CBC and BMP: 10/17/18 17:50 10/17/18 17:50 Assessment and Plan - Patient Problems (1) Abdominal pain Current Visit: No Status: Acute Code(s): R10.9 - Unspecified abdominal pain (2) Alcohol abuse Current Visit: No Status: Acute Code(s): F10.10 - Alcohol abuse, uncomplicated (3) Alcohol withdrawal Current Visit: No Status: Acute Code(s): F10.239 - Alcohol dependence with withdrawal, unspecified Qualifiers: (4) Dehydration Current Visit: No Status: Acute Code(s): E86.0 - Dehydration (5) Diabetes Current Visit: No Status: Acute Code(s): E11.9 - Type 2 diabetes mellitus without complications Qualifiers: (6) Electrolyte abnormality Current Visit: No Status: Acute Code(s): E87.8 - Other disorders of electrolyte and fluid balance, not elsewhere classified - Assessment / Plan Additional Assessment/Plan Details: #1 most likely due to acute pancreatitis considering her severe abdominal pain I will order a CT scan abdomen and pelvis ice chips IV dye lauded for pain. Lipase is not elevated because she has a burned out pancreas Hypokalemia replace IV Diabetes -we will cut long-acting insulin in half Dehydration continue IV fluids with electrolytes
[2018-10-17] MEDS ORDERED: Influenza 18-19 Vaccine (6mo+) 60 MCG/0.5 ML SYRINGE IM ONE (21:46)
[2018-10-17] MEDS: NICOTINE 21 MG /DAY PATCH TRANSDERM SCH (22:10)
--- NOTE | 2018-10-17 22:24 | DI ---
EXAM: CT Abdomen and Pelvis With Intravenous Contrast CLINICAL HISTORY: ITS.REASON abdominal pain Physician Notes: Tech Comments: TECHNIQUE: Axial computed tomography images of the abdomen and pelvis with intravenous contrast. COMPARISON: No relevant prior studies available. FINDINGS: Lung bases: Unremarkable. No mass. No consolidation. ABDOMEN: Liver: Fatty liver. Hepatomegaly. Gallbladder and bile ducts: Cholecystectomy Pancreas: Diffuse pancreatic calcifications indicates chronic pancreatitis. No ductal dilation. Spleen: Unremarkable. No splenomegaly. Adrenals: Unremarkable. No mass. Kidneys and ureters: Nonobstructing left renal stone. Stomach and bowel: Unremarkable. No obstruction. No mucosal thickening. PELVIS: Appendix: No findings to suggest acute appendicitis. Bladder: Unremarkable. No mass. Reproductive: Unremarkable as visualized. ABDOMEN and PELVIS: Intraperitoneal space: Unremarkable. No free air. No significant fluid collection. Bones/joints: No acute fracture. No dislocation. Soft tissues: Unremarkable. Vasculature: Unremarkable. No abdominal aortic aneurysm. Lymph nodes: Unremarkable. No enlarged lymph nodes. IMPRESSION: Nonobstructing left renal stone.
--- NOTE | 2018-10-17 22:59 | PDOC ---
Abdomen/Flank HPI - General Chief Complaint: Abdomen Pain Stated Complaint: ABDOMINAL PAIN/NAUSEA Date Seen by Provider: 10/17/18 Time Seen by Provider: 17:05 Source: POSITIVE: Patient Exam Limitations: POSITIVE: No limitations Nurse's Notes Reviewed & Considered: Yes - History of Present Illness Initial Comments: The patient is a 48-year-old female. She presents to the emergency room with a 2 day history of vomiting, diarrhea and epigastric abdominal discomfort. Patient has a long-standing history of chronic alcohol abuse and states that she had about a half of a fifth of liquor yesterday. Patient has a long-standing h istory of similar episodes.. She's had pancreatitis in the past and has a history of chronic pancreatitis. She's had a cholecystectomy and an appendectomy. She states she drinks alcohol daily. She also states she uses marijuana. She smokes. Body Location Affected: REPORTS: Abdomen Timing: REPORTS: Constant Duration: >24 hours (2 days) Severity: Moderate Quality: REPORTS: "Pain" Abdominal Pain Onset Location: REPORTS: Epigastric Abdominal Pain Radiation: REPORTS: No radiation Context: DENIES: None (As above; chronic alcohol abuse. Last drank yesterday) Modifying Factors: improves with: Vomiting Associated Symptoms: REPORTS: Vomiting, Diarrhea Similar Symptoms Previously: Yes Recent Care Received: REPORTS: Denies Any Prior Injuries Related to Current Complaint?: No - Patient Home Medications Home Medications: Home Medications insulin lispro (U- 100) 100 unit/mL subcutaneous pen 0 - 14 unit SUBCUT AC HS #3 ml 02/15/18 Potassium Chloride [Klor-Con] 10 meq PO BID #30 tab 02/27/18 insulin glargine (U-100) 100 unit/mL (3 mL) subcutaneous pen 18 unit SUBCUT BEDTIME ml 03/02/18 Levothyroxine Sodium [Synthroid] 50 mcg PO DAILY@0530 #90 tab 04/05/18 omeprazole 40 mg capsule,delayed release 40 mg PO DAILY #30 cap 04/24/18 pen needle, diabetic, safety 30 gauge x 1/3" 0 ea .ROUTE .MEDSUPPLY #1 pkg 05/03/18 Blood Sugar Diagnostic [Contour Test Strip] 0 film .ROUTE .MEDSUPPLY 06/02/18 Promethazine HCl [Phenergan] 25 mg PO Q4H PRN #10 tab 07/14/18 chlordiazepoxide 25 mg capsule 25 mg PO Q8H PRN #15 cap 07/21/18 ondansetron HCl 4 mg tablet 4 mg PO Q6H PRN #30 tab 07/25/18 metoprolol tartrate 25 mg tablet 25 mg PO BID #60 tab 08/11/18 zolpidem 10 mg tablet 10 mg PO QHS #30 tab 08/11/18 amlodipine 5 mg tablet 5 mg PO DAILY #30 tab 09/06/18 - Patient Allergies Allergies/Adverse Reactions: Allergies Allergy/AdvReac Type Severity Reaction Status Date / Time codeine AdvReac HALLUCINATI Verified 10/17/18 17:00 ONS levofloxacin [From Levaquin] AdvReac HALLUCINATI Verified 10/17/18 17:00 ONS oxycodone AdvReac HALLUCINATI Verified 10/17/18 17:00 ONS Past Medical History - heen HEENT History: Denies History, Other (please comment) Additional HEENT History: WEARS GLASSES. "BULL'S EYE VISION" Cardiovascular History: Hypertension, Other (please comment) Additional Cardiovasular History: PALPITATIONS Respiratory History: Pneumonia, Snoring, Other (please comment) Additional Respiratory History: chronic tobacco use Gastrointestinal History: GERD, Gallbladder Disease, Pancreatitis, Other (please comment) Additional Gastrointestinal History: Chronic alcoholism. elevated liver enzymes Genitourinary History: Denies History Endocrine History: Type 1 Diabetes Additional Endocrine History: TYPE [address] LAGUNA Musculoskeletal History: Joint Pain, Other (please comment) Prosthesis or Implant: Yes (BREAST AUGMENTATION) Additional Musculoskeletal History: Fractured right shoulder. Neurological History: Seizures, Other (please comment) Additional Neurological History: SEIZURE WITH DETOX Blood Disorders: Denies History Psychiatric History: Depression, Anxiety Disorders, Substance Abuse, Other (please comment) Additional Psychiatric History: ALCOHOLISM: CHRONIC AND RECURRENT. PANIC DISORDER History of Sexually Transmitted Diseases: No Female Reproductive History: Denies History LMP: 2010 Obstetrical History: Denies History Cancer History: Denies History In Past Year Been Physically Harmed or Verbally Threatened: No History of MDRO: Yes Other Type of MDRO: TESTED POSITIVE 2014 FOLLOWED BY 2 NEG SWABS History of Other Communicable Diseases: No (MONO, VARICELLA) Tobacco Use: Current Every Day Smoker Alcohol Use: Heavy Type of alcohol normally used: Beer In the Past 12 Months, Have Used or Abuse Any Substance: Marijuana Previous Surgical History: Yes Type / Date of Surgery: APPENDECTOMY, CHOLECYSTECTOMY, ABDOMINOPLASTY, BREAST AUGMENTATION, Right shoulder surgeryX2 Anesthesia Reactions: No Malignant Hyperthermia: No Significant Family History: Asthma, Heart disease, Cancer, Diabetes, Hypertension Additional Family History: EARLY MENOPAUSE - MOTHER Past Medical History Reviewed: Reviewed - No Changes ROS - Limitations ROS Limitations: No Limitations Constitution: REPORTS: Denies Symptoms Cardiovascular: REPORTS: Denies Cardiac Symptoms Respiratory: REPORTS: Denies Resp Symptoms Neurological: REPORTS: Denies Neuro Symptoms Gastrointestinal: REPORTS: Abdominal Pain, Nausea, Vomitting, Diarrhea Endocrine: REPORTS: Denies Symptoms Musculoskeletal: REPORTS: Denies MS Symptoms Genitourinary: REPORTS: Denies Symptoms Eyes: REPORTS: Denies Symptoms ENT: REPORTS: Denies Symptoms Skin: REPORTS: Denies Skin Symptoms Lympathic: REPORTS: Denies Lympathic Symptoms Immunologic: POSITIVE: Denies Symptoms Psychiatric: POSITIVE: Anxiety Abdominal/Flank Pain PE - General Appearance General Appearance: POSITIVE: Alert, Cooperative, No Evidence of Trauma. NEGATIVE: No Acute Distress (Moderate distress) - HEENT HEENT: POSITIVE: Head Inspection Nml, Eyes Inspection Nml, Ears Inspection Nml, Nose Inspection Nml, Oral/Dental Inspect. Nml, Pharynx Inspect. Nml, PERRL, EOMI - Neck Neck: POSITIVE: Normal Inspection, No Apparent Injury - Respiratory Respiratory: POSITIVE: No Respiratory Distress, Breath Sounds Normal, Chest Non- Tender - Cardiovascular Cardiovascular: POSITIVE: Regular Rate and Rhythm, Heart Sounds Normal, Equal Pulses, Strong Pulses Peripheral Pulses: Radial (R): 2+, Radial (L): 2+ - Chest Chest: POSITIVE: Non Tender - Abdomen Abdomen: Soft: (All Quadrants), Normal Bowel Sounds: (All Quadrants), Denies Tenderness: (RLQ), (LLQ), No Splenomegaly: (All Quadrants), No Hepatomegaly: (All Quadrants), No Guarding: (All Quadrants), No Rebound: (All Quadrants), No Palpable Pulse: (All Quadrants), No Palpabale Mass: (All Quadrants), No Distention: (All Quadrants), No Rigidity: (All Quadrants), Tenderness Noted: (RUQ), (LUQ) Additional Abdominal Details: Abdominal examination shows bowel sounds to be active. Patient does express discomfort on direct palpation over the epigastrium and somewhat over the right and left upper abdominal areas. No masses, organomegaly or rebound. - Back Back: POSITIVE: Normal Inspection. 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 Lab Results Reviewed by Me: Yes CBC and BMP: 10/17/18 17:50 10/17/18 17:50 Lab Results:: Laboratory Results 10/17/18 10/17/18 10/17/18 17:50 17:50 17:50 WBC 3.92 L RBC 4.27 Hgb 14.6 Hct 40.5 MCV 94.8 MCH 34.2 H MCHC 36.0 RDW Std Deviation 48.6 RDW Coeff of Farzad 14.5 Plt Count 274 MPV 9.3 Immature Gran % (Auto) 0 Neut % (Auto) 59.4 Lymph % (Auto) 33.2 [place] % (Auto) 4.8 L Eos % (Auto) 1.3 Baso % (Auto) 1.3 H Immature Gran # (Auto) 0 Neut # (Auto) 2.33 Lymph # (Auto) 1.30 [place] # (Auto) 0.19 L Eos # (Auto) 0.05 Baso # (Auto) 0.05 WBC Morphology Comment Normal morphology Plt Morphology Comment Normal morphology RBC Morph Comment Normal morphology Sodium 135 Potassium 2.3 L* Chloride 90 L Carbon Dioxide 22 L Anion Gap 23 H BUN 12 Creatinine 1.2 Estimated GFR 48 BUN/Creatinine Ratio 10.00 Glucose 156 H Calculated Osmolality 282.0 Calcium 14.3 H* Total Bilirubin 1.6 H AST 50 H ALT 56 H Alkaline Phosphatase 122 Total Protein 7.7 Albumin 4.9 H Globulin 2.8 Albumin/Globulin Ratio 1.70 Amylase 43 Lipase 24 Serum Alcohol 37 H - Patient's Progress Pain Medication Addressed: POSITIVE: Yes (Patient given Dilaudid, 2 mg IV along with Zofran 4 mg IV) School/Work Release Addressed: POSITIVE: Not Applicable Re-examine Time: 19:00 Re-Examine Comment: Abdominal discomfort somewhat less on discharge. Patient had one episode of vomiting in the emergency room. Patient has a potassium of 2.3 and a calcium of 14.3. Patient hydrated with a liter normal saline and was also started on a banana bag with 40 mEq of potassium chloride. Case discussed with Dr. Dacosta, hospitalist, who has admitted the patient for further evaluation and treatment. Status: POSITIVE: Improved, Worsened - Consult Consult (If Yes, Name of Consulting MD & Time Called): Yes ( F , hospitalist, [id number]) Consulting MD will see pt:: POSITIVE: [facility] [place] Admit Counseled: POSITIVE: Patient, RE: Lab Results, RE: Radiology Results, RE: DX, RE: Need for F/U Patient Care Time - Estimated PCT Patient Care Time (In Minutes): 50 Vital Signs - Recent Vital Signs Vital Signs: Vital Signs (Last 8 hours) Temp Pulse Resp BP Pulse Ox 10/17/18 17:18 97.7 F 102 H 18 182/118 98 - VS Reviewed Vital Signs Reviewed: Yes Discharge Clinical Impression: Nausea, Nausea and vomiting, Abdominal pain, Alcohol abuse, Hypokalemia, Hypercalcemia Discharge Disposition: Admit to Inpatient Condition: Fair Date Decision to Admit to Inpatient: 10/17/18 Time Decision to Admit to Inpatient: 18:30
[2018-10-18] MEDS: LEVOTHYROXINE 50 MCG TABLET PO SCH (05:24)
[2018-10-18] MEDS: HEPARIN 5000 UNIT/1 ML SUBCUT SCH ×3 (05:24→21:12)
[2018-10-18] MEDS: LORazepam Inj(ETOH withdrawal) 2 MG/ML VIAL IVP PRN ×5 (05:26→21:23)
[2018-10-18] MEDS: Metoprolol TARTRATE Tab 25 MG TAB PO SCH ×2 (09:17→21:11)
[2018-10-18] MEDS: NICOTINE 21 MG /DAY PATCH TRANSDERM SCH (09:17)
[2018-10-18] MEDS: THIAMINE 100 MG/1 ML - 2 ML IM SCH (09:17)
[2018-10-18] MEDS: OMEPRAZOLE 40 MG CAPSULE PO SCH (09:17)
[2018-10-18] MEDS: AmLODIPine Tab 5 MG TABLET PO SCH (09:17)
[2018-10-18] MEDS: MAGNESIUM OXIDE 400 MG TABLET PO SCH ×2 (09:17→21:11)
[2018-10-18] MEDS: Potassium Chloride Tab 10 MEQ TAB PO SCH ×2 (09:17→21:11)
[2018-10-18] MEDS: ONDANSETRON 4 MG/2 ML VIAL IVP PRN ×2 (09:18→14:59)
--- NOTE | 2018-10-18 09:47 | PDOC(PROG) ---
Interval History: Patient feels better than last night still having abdominal pain left lower quadrant this is secondary to chronic Procrit pancreatitis with calcifications Objective : Data - Labs CBC and BMP: 10/17/18 17:50 10/17/18 17:50 Objective : Exam - General General Appearance: Cooperative - Respiratory Respiratory Exam: Clear to Auscultation - Bilaterally, Breathing Non Labored, Normal To Percussion, Normal to Percussion and Palpation - Cardiovascular Cardiovascular Exam: RRR, No Murmur, No Clicks, No Gallops, No Rubs, PMI Non-Displaced - GI/Abdominal Additional GI/Abdominal Exam Details: Abdominal pain left quadrant lower no guarding or rebound - Extremities Extremities Exam: No Clubbing Present, No Edema Present, No Cyanosis Present Assessment and Plan - Patient Problems (1) Abdominal pain Current Visit: Yes Status: Acute Comment: Continue IV dye lauded CT scan results reviewed continue ice chips and CIWA scale continue to replace electrolytes Code(s): R10.9 - Unspecified abdominal pain (2) Alcohol abuse Current Visit: Yes Status: Acute Comment: [employer] consult Code(s): F10.10 - Alcohol abuse, uncomplicated (3) Alcohol withdrawal Current Visit: No Status: Acute Comment: CIWA scale Code(s): F10.239 - Alcohol dependence with withdrawal, unspecified Qualifiers: (4) Dehydration Current Visit: No Status: Acute Comment: Continue banana bags with electrolytes Code(s): E86.0 - Dehydration (5) Diabetes Current Visit: No Status: Acute Comment: Insulin was cut in half because of her decreased by mouth intake Code(s): E11.9 - Type 2 diabetes mellitus without complications Qualifiers: (6) Electrolyte abnormality Current Visit: No Status: Acute Code(s): E87.8 - Other disorders of electrolyte and fluid balance, not elsewhere classified
[2018-10-18 11:37] LABS: BUN/CREATININE RATIO 13.07 (6-20); SERUM ALBUMIN 4.1 g/dL (3.5-4.8)
[2018-10-18] MEDS: HYDROmorphone 2 MG/1 ML IVP PRN ×2 (12:01→18:58)
[2018-10-18] MEDS ORDERED: D5-1/2NS + 40mEq KCL 1,000 ML, Magnesium Sulfate 2gm (Premix) 50 ML with Multivitamin I... IV ONE ×5 (12:14)
[2018-10-18] MEDS ORDERED: THIAMINE IV ONE ×5 (12:30)
[2018-10-18] MEDS ORDERED: KCL IV ONE ×5 (12:30)
[2018-10-18] MEDS ORDERED: MULTIVITAMIN IV ONE ×5 (12:30)
[2018-10-18] MEDS ORDERED: D5 IV ONE ×5 (12:30)
[2018-10-18] MEDS ORDERED: [UNRECOGNIZED DRUG - OTHER] IV ONE ×5 (12:30)
[2018-10-18] MEDS: ZOLPIDEM 10 MG TABLET PO SCH (21:11)
[2018-10-18] MEDS: Insulin Glargine SoloStar Inj 100 UNIT/ML INSULN.PEN SUBCUT SCH (21:12)
[2018-10-19] MEDS: HYDROmorphone 2 MG/1 ML IVP PRN ×4 (00:32→14:30)
[2018-10-19] MEDS: LORazepam Inj(ETOH withdrawal) 2 MG/ML VIAL IVP PRN ×7 (00:32→21:01)
[2018-10-19] MEDS: HEPARIN 5000 UNIT/1 ML SUBCUT SCH ×3 (03:37→21:22)
[2018-10-19] MEDS: LEVOTHYROXINE 50 MCG TABLET PO SCH (04:39)
[2018-10-19 04:52] LABS: BASOPHILS # (AUTO) 0.02 10*3/UL; BASOPHILS % (AUTO) 0.5 % (0-1); EOSINOPHILS % (AUTO) 2.3 % (0-8); Hematocrit [HCT] 36.5 % (37.0-47.0); Hemoglobin [HGB] 12.1 g/dL (12.0-16.0); LYMPHOCYTES # (AUTO) 0.95 10*3/uL; MEAN CORPUSCULAR HEMOGLOBIN 34.1 PG (27-31); MEAN CORPUSCULAR HGB CONC 33.2 g/dL (33-37); MEAN CORPUSCULAR VOLUME 102.8 FL (81-99); MEAN PLATELET VOLUME 9.6 FL (7.4-12.2); MONOCYTES # (AUTO) 0.16 10*3/UL (0.3-0.8); MONOCYTES % (AUTO) 3.7 % (5-15); NEUTROPHILS # (AUTO) 3.04 10*3/UL; NEUTROPHILS % (AUTO) 71.1 % (50-80); RED BLOOD COUNT 3.55 10^6/uL (4.20-5.40)
[2018-10-19] MEDS: ONDANSETRON 4 MG/2 ML VIAL IVP PRN (04:57)
[2018-10-19 05:26] LABS: PLATELET MORPHOLOGY COMMENT NORMAL MORPHOLOGY (NORM); RBC MORPHOLOGY COMMENT NORMAL MORPHOLOGY (NORM); WBC MORPHOLOGY COMMENT NORMAL MORPHOLOGY (NORM)
[2018-10-19 05:29] LABS: SERUM ALBUMIN 4.4 g/dL (3.5-4.8)
[2018-10-19] MEDS: MAGNESIUM OXIDE 400 MG TABLET PO SCH ×2 (09:33→21:02)
[2018-10-19] MEDS: AmLODIPine Tab 5 MG TABLET PO SCH (09:33)
[2018-10-19] MEDS: NICOTINE 21 MG /DAY PATCH TRANSDERM SCH (09:33)
[2018-10-19] MEDS: Metoprolol TARTRATE Tab 25 MG TAB PO SCH ×2 (09:33→21:02)
[2018-10-19] MEDS: Potassium Chloride Tab 10 MEQ TAB PO SCH ×2 (09:34→21:01)
[2018-10-19] MEDS: OMEPRAZOLE 40 MG CAPSULE PO SCH (09:34)
[2018-10-19] MEDS: THIAMINE 100 MG/1 ML - 2 ML IM SCH (09:34)
[2018-10-19] MEDS ORDERED: Sodium Chloride 0.9% 1,000 ML with Multivitamin Inj 10 ML, Thiamine Inj 100 MG, Folic A... IV ONE ×5 (09:36)
--- NOTE | 2018-10-19 09:38 | PDOC(PROG) ---
Interval History: Pain is a little better still requiring dye lauded on physical exam as she still hurts in the left lower quadrant. Nausea is improved Objective : Data - Labs CBC and BMP: 10/19/18 05:00 10/19/18 05:00 Objective : Exam - General General Appearance: Cooperative - Respiratory Respiratory Exam: Clear to Auscultation - Bilaterally, Breathing Non Labored, Normal To Percussion, Normal to Percussion and Palpation - Cardiovascular Cardiovascular Exam: RRR, No Murmur, No Clicks, No Gallops, No Rubs, PMI Non- Displaced - GI/Abdominal Additional GI/Abdominal Exam Details: Left lower quadrant abdominal pain on mild palpation - Extremities Extremities Exam: No Clubbing Present, No Edema Present, No Cyanosis Present Assessment and Plan - Patient Problems (1) Abdominal pain Current Visit: Yes Status: Acute Comment: Secondary to chronic pancreatitis continue IV fluids in the form of banana bag with potassium and IV pain control Code(s): R10.9 - Unspecified abdominal pain (2) Alcohol abuse Current Visit: Yes Status: Acute Comment: Patient on a CIWA scale has been binge drinking in the last week Code(s): F10.10 - Alcohol abuse, uncomplicated (3) Alcohol withdrawal Current Visit: No Status: Acute Code(s): F10.239 - Alcohol dependence with withdrawal, unspecified Qualifiers: (4) Dehydration Current Visit: No Status: Acute Comment: Continue banana bag with 40 of potassium Code(s): E86.0 - Dehydration (5) Diabetes Current Visit: No Status: Acute Comment: Decreased her insulin to 9 from 18 since the patient is as chips only and [place] ice Code(s): E11.9 - Type 2 diabetes mellitus without complications Qualifiers: (6) Electrolyte abnormality Current Visit: No Status: Acute Comment: Low potassium being replaced with banana bag improving Code(s): E87.8 - Other disorders of electrolyte and fluid balance, not elsewhere classified
[2018-10-19] MEDS: ZOLPIDEM 10 MG TABLET PO SCH (21:01)
[2018-10-19] MEDS: Insulin Glargine SoloStar Inj 100 UNIT/ML INSULN.PEN SUBCUT SCH (21:17)
[2018-10-20] MEDS: HYDROmorphone 2 MG/1 ML IVP PRN ×2 (00:45→05:43)
[2018-10-20] MEDS: ONDANSETRON 4 MG/2 ML VIAL IVP PRN (02:34)
[2018-10-20] MEDS: HEPARIN 5000 UNIT/1 ML SUBCUT SCH ×3 (04:46→20:38)
[2018-10-20] MEDS: LEVOTHYROXINE 50 MCG TABLET PO SCH (04:46)
[2018-10-20] MEDS: LORazepam Inj(ETOH withdrawal) 2 MG/ML VIAL IVP PRN (04:58)
--- NOTE | 2018-10-20 08:18 | PDOC(PROG) ---
Date of Service: 10/20/18 Time of Service: 08:20 Interval History: Subjective Patient she said started drinking again after a few weeks of being sober. She came in because of pain and vomiting. The vomiting stopped she still have pain mainly in the epigastric area and goes to the back. It's better than when she came in. Objective : Data - Labs CBC and BMP: 10/19/18 05:00 10/20/18 08:25 Objective : Exam - General General Appearance: No Acute Distress, Cooperative - Head Head Exam: Normal Inspection - Eye Eye Exam: Normal Appearance - ENT ENT Exam: Normal Exam - Neck Neck Exam: Normal Inspection - Respiratory Respiratory Exam: Clear to Auscultation - Bilaterally - Cardiovascular Cardiovascular Exam: RRR - GI/Abdominal GI/Abdominal Exam: Normal Bowel Sounds, Non Distended, Soft, No Organomegaly Additional GI/Abdominal Exam Details: Abdomen is soft there is some tenderness in the epigastric area. Seems to be mild though. No rebound. - Rectal Rectal Exam: Deferred - External Exam: Deferred Exam: Deferred - Extremities Extremities Exam: Normal Inspection - Back Back Exam: Normal Inspection - Neurological Neurological Exam: Alert, Oriented x 3, CN II-XII Intact, Speech Intact / Clear - Psychiatric Psychiatric Exam: Normal Affect - Integumentary Integumentary Exam: Normal Color Assessment and Plan - Patient Problems (1) Electrolyte abnormality Current Visit: No Status: Acute Comment: Potassium was low yesterday she is on potassium replacement will recheck the level today. Code(s): E87.8 - Other disorders of electrolyte and fluid balance, not elsewhere classified (2) Dehydration Current Visit: No Status: Acute Comment: Seems to be resolved. Will put her on clear liquid. Code(s): E86.0 - Dehydration (3) Abdominal pain Current Visit: Yes Status: Acute Comment: Probably secondary to chronic pancreatitis. Will put her on clear liquid. We'll cut back on the IV pain medication and will add oral pain medication. Code(s): R10.9 - Unspecified abdominal pain (4) Alcohol withdrawal Current Visit: No Status: Acute Comment: She is on CIWA protocol will switch her to oral Ativan. Code(s): F10.239 - Alcohol dependence with withdrawal, unspecified Qualifiers: (5) Diabetes Current Visit: No Status: Acute Comment: She is on Lantus at a lower dosage than what she takes. will Keep an eye on her blood sugar. Code(s): E11.9 - Type 2 diabetes mellitus without complications Qualifiers: (6) Hypertension Current Visit: No Status: Chronic Comment: Continue amlodipine and metoprolol Code(s): I10 - Essential (primary) hypertension Qualifiers: Hypertension type: essential hypertension Qualified Code(s): I10 - Essential (primary) hypertension
[2018-10-20] MEDS ORDERED: HYDROmorphone 2 MG/1 ML IVP PRN (08:19)
[2018-10-20] MEDS: NICOTINE 21 MG /DAY PATCH TRANSDERM SCH (08:31)
[2018-10-20] MEDS: Multivitamin Tab 1 TAB PO SCH (08:32)
[2018-10-20] MEDS: Potassium Chloride Tab 10 MEQ TAB PO SCH ×2 (08:32→20:40)
[2018-10-20] MEDS: Metoprolol TARTRATE Tab 25 MG TAB PO SCH ×2 (08:32→20:39)
[2018-10-20] MEDS: MAGNESIUM OXIDE 400 MG TABLET PO SCH ×2 (08:32→20:39)
[2018-10-20] MEDS: OMEPRAZOLE 40 MG CAPSULE PO SCH (08:32)
[2018-10-20] MEDS: AmLODIPine Tab 5 MG TABLET PO SCH (08:32)
[2018-10-20] MEDS: LORazepam 1 mg tab (ETOH withdrawal) PO PRN ×4 (08:34→20:43)
[2018-10-20 08:57] LABS: BLOOD UREA NITROGEN 12 mg/dL (7-22); SERUM ALBUMIN 4.1 g/dL (3.5-4.8)
[2018-10-20] MEDS: Thiamine Tab 100 MG TAB PO SCH (11:36)
[2018-10-20] MEDS: traMADol 50 MG TABLET PO PRN ×2 (12:12→20:41)
[2018-10-20] MEDS: LIPASE/PROTEASE/AMYLASE 1 EACH CAPSULE PO SCH (17:21)
[2018-10-20] MEDS: Promethazine Tab 25 MG TAB PO PRN (20:39)
[2018-10-20] MEDS: ZOLPIDEM 10 MG TABLET PO SCH (20:39)
[2018-10-20] MEDS: Insulin Glargine SoloStar Inj 100 UNIT/ML INSULN.PEN SUBCUT SCH (20:43)
[2018-10-21] MEDS: LORazepam 1 mg tab (ETOH withdrawal) PO PRN ×2 (00:23→04:51)
[2018-10-21] MEDS: Promethazine Tab 25 MG TAB PO PRN (00:23)
[2018-10-21] MEDS: HEPARIN 5000 UNIT/1 ML SUBCUT SCH ×2 (04:47→12:06)
[2018-10-21] MEDS: LEVOTHYROXINE 50 MCG TABLET PO SCH (04:48)
[2018-10-21] MEDS: traMADol 50 MG TABLET PO PRN ×2 (04:50→10:18)
[2018-10-21 05:01] LABS: BASOPHILS # (AUTO) 0.03 10*3/UL; BASOPHILS % (AUTO) 0.8 % (0-1); EOSINOPHILS # (AUTO) 0.11 10*3/UL; EOSINOPHILS % (AUTO) 2.8 % (0-8); Hematocrit [HCT] 35.9 % (37.0-47.0); Hemoglobin [HGB] 12.1 g/dL (12.0-16.0); LYMPHOCYTES # (AUTO) 1.38 10*3/uL; MEAN CORPUSCULAR HEMOGLOBIN 34.2 PG (27-31); MEAN CORPUSCULAR HGB CONC 33.7 g/dL (33-37); MEAN CORPUSCULAR VOLUME 101.4 FL (81-99); MEAN PLATELET VOLUME 9.9 FL (7.4-12.2); MONOCYTES # (AUTO) 0.24 10*3/UL (0.3-0.8); MONOCYTES % (AUTO) 6.1 % (5-15); NEUTROPHILS # (AUTO) 2.14 10*3/UL; NEUTROPHILS % (AUTO) 54.6 % (50-80); RED BLOOD COUNT 3.54 10^6/uL (4.20-5.40)
[2018-10-21 05:08] LABS: PLATELET MORPHOLOGY COMMENT NORMAL MORPHOLOGY (NORM); RBC MORPHOLOGY COMMENT NORMAL MORPHOLOGY (NORM); WBC MORPHOLOGY COMMENT NORMAL MORPHOLOGY (NORM)
[2018-10-21 05:12] LABS: BLOOD UREA NITROGEN 9 mg/dL (7-22); SERUM ALBUMIN 3.8 g/dL (3.5-4.8)
[2018-10-21] MEDS: LIPASE/PROTEASE/AMYLASE 1 EACH CAPSULE PO SCH ×2 (06:49→11:02)
[2018-10-21] MEDS: MAGNESIUM OXIDE 400 MG TABLET PO SCH (09:20)
[2018-10-21] MEDS: NICOTINE 21 MG /DAY PATCH TRANSDERM SCH (09:20)
[2018-10-21] MEDS: Potassium Chloride Tab 10 MEQ TAB PO SCH (09:20)
[2018-10-21] MEDS: AmLODIPine Tab 5 MG TABLET PO SCH (09:21)
[2018-10-21] MEDS: OMEPRAZOLE 40 MG CAPSULE PO SCH (09:21)
[2018-10-21] MEDS: Multivitamin Tab 1 TAB PO SCH (09:21)
[2018-10-21] MEDS: Thiamine Tab 100 MG TAB PO SCH (09:21)
[2018-10-21] MEDS: Metoprolol TARTRATE Tab 25 MG TAB PO SCH (09:22)
--- NOTE | 2018-10-21 09:58 | PDOC(PROG) ---
Date of Service: 10/21/18 Time of Service: 10:00 Interval History: Subjective Said the pain is still 6 out of 10. Though she tolerated advancement in her diet. Objective : Data - Labs CBC and BMP: 10/21/18 04:40 10/21/18 04:40 Objective : Exam - General General Appearance: No Acute Distress, Cooperative - Head Head Exam: Normal Inspection - Eye Eye Exam: Normal Appearance - ENT ENT Exam: Normal Exam - Neck Neck Exam: Normal Inspection - Respiratory Respiratory Exam: Clear to Auscultation - Bilaterally - Cardiovascular Cardiovascular Exam: RRR - GI/Abdominal GI/Abdominal Exam: Normal Bowel Sounds, Non Distended, Soft, No Organomegaly Additional GI/Abdominal Exam Details: Some tenderness in the epigastrium present - Rectal Rectal Exam: Deferred - External Exam: Deferred Exam: Deferred - Extremities Extremities Exam: Normal Inspection Assessment and Plan - Patient Problems (1) Electrolyte abnormality Current Visit: No Status: Acute Comment: Potassium still low will give her additional potassium. Code(s): E87.8 - Other disorders of electrolyte and fluid balance, not elsewhere classified (2) Dehydration Current Visit: No Status: Acute Comment: This is resolved Code(s): E86.0 - Dehydration (3) Abdominal pain Current Visit: Yes Status: Acute Comment: Controlled with current pain medication. We'll see how she feels in the afternoon and then will decide after she walks whether she is ready to go home today or not. Code(s): R10.9 - Unspecified abdominal pain (4) Alcohol withdrawal Current Visit: No Status: Acute Comment: She is on [facility] protocol Code(s): F10.239 - Alcohol dependence with withdrawal, unspecified Qualifiers: (5) Diabetes Current Visit: No Status: Acute Comment: Same med Code(s): E11.9 - Type 2 diabetes mellitus without complications Qualifiers: (6) Hypertension Current Visit: No Status: Chronic Comment: Same medications Code(s): I10 - Essential (primary) hypertension Qualifiers: Hypertension type: essential hypertension Qualified Code(s): I10 - Essential (primary) hypertension
[2018-10-21] MEDS ORDERED: LORazepam 1 MG TABLET PO ONE (10:22)
[2018-10-21] MEDS ORDERED: Potassium Chloride Tab 10 MEQ TAB PO SCH (12:00)
--- NOTE | 2018-10-21 12:43 | DCSUMMARY ---
Hospitalization Summary Admit Date: 10/17/2018 Discharge Date: 10/21/18 Hospital Course: Discharge diagnoses 1. Abdominal pain, multifactorial probably secondary to chronic pancreatitis and gastritis 2. History of hypertension 3. History of alcohol abuse with multiple admission to our hospital 4. Diabetes likely secondary to chronic pancreatitis 5. Nonobstructing left renal stone Hospital course This is a 48 years old female with medical history significant for history of chronic pancreatitis and also previous multiple admissions for acute pancreatitis secondary to alcoholism who came into the hospital with history of abdominal pain, nausea vomiting she's been drinking heavily the last few days. She came into the ER she was hypokalemic was given fluids a CT of the abdomen was done did not show new changes was admitted to the hospital by Dr. Dacosta please see his note. Patient was put on IV fluid, pain medication and electrolytes were replaced. Initially was put on nothing by mouth. I saw her later on during her hospital stay we started advancing her diet she tolerated diet advancement. The next day she was doing better she tolerated regular diet. She walked around did okay we thought that she could be discharged home and follow-up with primary. The potassium was still slightly low at 3.3 she was given additional potassium and she'll be discharge on oral potassium replacement at home. She follow-up with her PCP. Blood pressure was also somewhat elevated we continued the previous medications need to be looked at as an outpatient and see whether she needs further adjustment in her blood medication. We advised her multiple times to stop drinking in the past however she continued to drink. She is not interested in inpatient therapy. Laboratory Results 10/21/18 10/21/18 04:40 04:40 WBC 3.92 L RBC 3.54 L Hgb 12.1 Hct 35.9 L MCV 101.4 H MCH 34.2 H MCHC 33.7 RDW Std Deviation 50.6 H RDW Coeff of Farzad 14.1 Plt Count 127 L MPV 9.9 Immature Gran % (Auto) 0.5 Neut % (Auto) 54.6 Lymph % (Auto) 35.2 Newton % (Auto) 6.1 Eos % (Auto) 2.8 Baso % (Auto) 0.8 Immature Gran # (Auto) 0.02 Neut # (Auto) 2.14 Lymph # (Auto) 1.38 Newton # (Auto) 0.24 L Eos # (Auto) 0.11 Baso # (Auto) 0.03 WBC Morphology Comment Normal morphology Plt Morphology Comment Normal morphology RBC Morph Comment Normal morphology Sodium 138 Potassium 3.3 L Chloride 103 Carbon Dioxide 27 Anion Gap 8 BUN 9 Creatinine 0.6 Estimated GFR > 60 BUN/Creatinine Ratio 15.00 Glucose 115 H Calculated Osmolality 285.0 Calcium 9.0 Total Bilirubin 0.9 AST 53 H ALT 63 H Alkaline Phosphatase 122 Total Protein 6.2 Albumin 3.8 Globulin 2.4 L Albumin/Globulin Ratio 1.50 Discharge instruction Diet regular Activity as started Medications Current Medication(s) Medication Instructions Recorded Confirmed Type insulin lispro (U- 100) 100 0 - 14 unit SUBCUT AC HS #3 ml 02/15/18 10/17/18 Rx unit/mL subcutaneous pen RX: Potassium Chloride [Klor-Con] 10 meq PO BID #30 tab 02/27/18 10/17/18 Rx insulin glargine (U-100) 100 18 unit SUBCUT BEDTIME ml 03/02/18 10/17/18 History unit/mL (3 mL) subcutaneous pen RX: Levothyroxine Sodium 50 mcg PO DAILY@0530 #90 tab 04/05/18 10/17/18 Rx [Synthroid] omeprazole 40 mg capsule,delayed 40 mg PO DAILY #30 cap 04/24/18 10/17/18 Rx release pen needle, diabetic, safety 30 0 ea .ROUTE .MEDSUPPLY #1 pkg 05/03/18 10/17/18 Rx gauge x 1/3" RX: Blood Sugar Diagnostic 0 film .ROUTE .MEDSUPPLY 06/02/18 10/17/18 History [Contour Test Strip] RX: Promethazine HCl [Phenergan] 25 mg PO Q4H PRN #10 tab 07/14/18 10/17/18 Rx ondansetron HCl 4 mg tablet 4 mg PO Q6H PRN #30 tab 07/25/18 10/17/18 Rx metoprolol tartrate 25 mg tablet 25 mg PO BID #60 tab 08/11/18 10/17/18 Rx zolpidem 10 mg tablet 10 mg PO QHS #30 tab 08/11/18 10/17/18 Rx amlodipine 5 mg tablet 5 mg PO DAILY #30 tab 09/06/18 10/17/18 Rx RX: Multivitamin Tab [Thera Tab] 1 tab PO DAILY tab 10/21/18 Rx RX: traMADol HCl [Ultram] 50 mg PO QID PRN #8 tab 10/21/18 Rx Follow-up with her PCP 1-2 weeks Condition at discharge was stable for discharge Exam - Vitals Vital Signs: Vital Signs Temperature 98.7 F Temperature Source Oral Pulse Rate [Pulse Oximeter] 94 Pulse Rate [Bilateral Radial] 85 Pulse Rate 79 Respiratory Rate 20 Blood Pressure [Right Arm] 153/97 Blood Pressure [Left Arm] 128/86 Blood Pressure 157/119 Pulse Ox 98 Oxygen Flow Rate 3 Oxygen Delivery Method Room Air Height 5 ft 3 in Weight 124 lb 9.6 oz - General General Appearance: No Acute Distress, Cooperative - Head Head Exam: Normal Inspection - Eye Eye Exam: POSITIVE: Normal Appearance - ENT ENT Exam: POSITIVE: Normal Exam - Neck Neck Exam: Normal Inspection - Respiratory Respiratory Exam: POSITIVE: Clear to Auscultation - Bilaterally - Cardiovascular Cardiovascular Exam: POSITIVE: RRR - GI/Abdominal GI/Abdominal Exam: POSITIVE: Normal Bowel Sounds, Non Distended, Soft, No Organomegaly Additional GI/Abdominal Exam Details: Minimal tenderness in the epigastrium - Rectal Rectal Exam: POSITIVE: Deferred - External Exam: POSITIVE: Deferred Exam: POSITIVE: Deferred - Extremities Extremities Exam: POSITIVE: Normal Inspection - Back Back Exam: POSITIVE: Normal Inspection - Neurological Neurological Exam: POSITIVE: Alert, Oriented x 3, CN II-XII Intact, No Facial Droop, Speech Intact / Clear, Moves All Extremities Equally - Psychiatric Psychiatric Exam: POSITIVE: Normal Affect Patient Problems - Patient Problem List (1) Electrolyte abnormality Status: Acute Code(s): E87.8 - Other disorders of electrolyte and fluid balance, not elsewhere classified Category: Medical (2) Dehydration Status: Acute Code(s): E86.0 - Dehydration Category: Medical (3) Abdominal pain Status: Acute Code(s): R10.9 - Unspecified abdominal pain Category: Medical (4) Alcohol withdrawal Status: Acute Code(s): F10.239 - Alcohol dependence with withdrawal, unspecified Qualifiers: Category: Medical (5) Diabetes Status: Acute Code(s): E11.9 - Type 2 diabetes mellitus without complications Qualifiers: Category: Medical (6) Hypertension Status: Chronic Code(s): I10 - Essential (primary) hypertension Qualifiers: Hypertension type: essential hypertension Qualified Code(s): I10 - Essential (primary) hypertension Category: Medical
[2018-10-21] MEDS ORDERED: traMADol 50 MG TABLET PO ONE (12:45)
== END 2018-10-21 13:07 | disposition home or self-care (01) | DRG 439 ==
LOC: ER 16:57 → MED/SURG 19:51
PROVIDERS: ADMIT Internal Medicine; ATTEND Internal Medicine

== ENCOUNTER 2019-01-05 02:34 | Observation (INO) ==
[2019-01-05] MEDS ORDERED: Sodium Chloride 0.9% 1,000 ML PRIMARY IV ONE ×2 (02:52→05:34)
[2019-01-05] MEDS ORDERED: ONDANSETRON 4 MG/2 ML VIAL IVP ONE (02:52)
--- NOTE | 2019-01-05 02:59 | EKG ---
[address] [address] Measurements Intervals [place] Rate: 82 P: 7 RI: 171 QRS: 25 QRSD: 86 T: 37 QT: 389 QTc: 428 Interpretive Statements SINUS RHYTHM Compared to ECG 07/12/2018 09:42:43 No significant changes Electronically Signed On 01-05-19 09:02:27 MST by Champ Lang MD [email or web address]
[2019-01-05] MEDS ORDERED: Acetaminophen 1000mg Inj 1,000 MG/100 ML VIAL IV PRN (03:33)
[2019-01-05 03:42] LABS: VENOUS PH 7.53 (7.32-7.42)
[2019-01-05 03:45] LABS: BASOPHILS # (AUTO) 0.06 10*3/UL; EOSINOPHILS # (AUTO) 0.08 10*3/UL; EOSINOPHILS % (AUTO) 1.3 % (0-8); Hematocrit [HCT] 37.6 % (37.0-47.0); Hemoglobin [HGB] 13.5 g/dL (12.0-16.0); MEAN CORPUSCULAR HEMOGLOBIN 33.5 PG (27-31); MEAN CORPUSCULAR HGB CONC 35.9 g/dL (33-37); MEAN CORPUSCULAR VOLUME 93.3 FL (81-99); MEAN PLATELET VOLUME 9.8 FL (7.4-12.2); MONOCYTES # (AUTO) 0.28 10*3/UL (0.3-0.8); MONOCYTES % (AUTO) 4.7 % (5-15); NEUTROPHILS # (AUTO) 3.43 10*3/UL; NEUTROPHILS % (AUTO) 57.8 % (50-80); RED BLOOD COUNT 4.03 10^6/uL (4.20-5.40)
[2019-01-05 03:47] LABS: PLATELET MORPHOLOGY COMMENT NORMAL MORPHOLOGY (NORM); RBC MORPHOLOGY COMMENT NORMAL MORPHOLOGY (NORM); WBC MORPHOLOGY COMMENT NORMAL MORPHOLOGY (NORM)
[2019-01-05 03:54] LABS: BLOOD UREA NITROGEN 17 mg/dL (7-22); SERUM ALBUMIN 4.1 g/dL (3.5-4.8)
--- NOTE | 2019-01-05 04:22 | DI ---
EXAM: XR Chest, 2 Views CLINICAL HISTORY: cough, chest pains TECHNIQUE: Frontal and lateral views of the chest. COMPARISON: July 12, 2018. FINDINGS: Lungs: Unremarkable. No consolidation. Pleural space: Unremarkable. No pleural effusions. No pneumothorax. Heart: Unremarkable. No cardiomegaly. Mediastinum: Unremarkable. Bones/joints: Unremarkable. IMPRESSION: No acute cardiopulmonary process.
[2019-01-05] MEDS ORDERED: AmLODIPine Tab 5 MG TABLET PO ONE (05:48)
[2019-01-05] MEDS ORDERED: METOPROLOL SUCCINATE 25 MG SR 24H TABLET PO ONE (05:48)
[2019-01-05] MEDS ORDERED: Magnesium Sulfate 2gm (Premix) 2 GM/50 ML BAG IV ONE ×2 (05:49→09:29)
--- NOTE | 2019-01-05 05:56 | PDOC ---
General Adult HPI - General Chief Complaint: General Medical Stated Complaint: COLD SYMPTOMS X 1 WEEK - N/V/D TODAY Date Seen by Provider: 01/05/19 Time Seen by Provider: 02:45 Source: POSITIVE: Patient Exam Limitations: POSITIVE: No limitations Nurse's Notes Reviewed & Considered: Yes - History of Present Illness Initial Comment: The patient is a 48-year-old female who presents to the emergency department with nausea and vomiting. She states that she has had some upper respiratory symptoms for the past week including cough and congestion. Earlier tonight she developed onset of nausea and vomiting. She states that she has had multiple episodes of vomiting and has been unable to keep anything down. She does have some mild epigastric abdominal pain. She states that prior to coming to the emergency department she had gone to the bathroom where she was vomiting. She subsequently passed out briefly. She states that earlier in the evening she was also having some intermittent sharp chest pains. She denies any current chest pain. She does have a history of alcohol abuse however states that she has not been drinking for the past 3 weeks. She states that she did not take her blood pressure medication last night. Have you received a tetanus shot in the past 10 years?: Yes - Patient Home Medications Home Medications: Home Medications insulin lispro (U- 100) 100 unit/mL subcutaneous pen 0 - 14 unit SUBCUT AC HS #3 ml 02/15/18 insulin glargine (U-100) 100 unit/mL (3 mL) subcutaneous pen 18 unit SUBCUT BEDTIME ml 03/02/18 omeprazole 40 mg capsule,delayed release 40 mg PO DAILY #30 cap 04/24/18 pen needle, diabetic, safety 30 gauge x 1/3" 0 ea .ROUTE .MEDSUPPLY #1 pkg 05/03/18 Blood Sugar Diagnostic [Contour Test Strip] 0 film .ROUTE .MEDSUPPLY 06/02/18 ondansetron HCl 4 mg tablet 4 mg PO Q6H PRN #30 tab 07/25/18 metoprolol tartrate 25 mg tablet 25 mg PO BID #60 tab 08/11/18 amlodipine 5 mg tablet 5 mg PO DAILY #30 tab 09/06/18 Multivitamin Tab [Thera Tab] 1 tab PO DAILY tab 10/21/18 Potassium Chloride [Klor-Con] 10 meq PO BID #20 tab 10/21/18 insulin NPH isophane U- 100 human 100 unit/mL subcutaneous suspension 10 unit SUBCUT QAM #10 ml 11/13/18 levothyroxine 50 mcg tablet 50 mcg PO DAILY@0530 #90 tab 11/13/18 - Patient Allergies Allergies/Adverse Reactions: Allergies Allergy/AdvReac Type Severity Reaction Status Date / Time codeine AdvReac HALLUCINATI Verified 01/05/19 02:36 ONS levofloxacin [From Levaquin] AdvReac HALLUCINATI Verified 01/05/19 02:36 ONS oxycodone AdvReac HALLUCINATI Verified 01/05/19 02:36 ONS Past Medical History - heen HEENT History: Other (please comment) Additional HEENT History: "BULL'S EYE VISION" Cardiovascular History: Hypertension, Other (please comment) Additional Cardiovasular History: PALPITATIONS Respiratory History: Pneumonia, Snoring, Other (please comment) Additional Respiratory History: chronic tobacco use Gastrointestinal History: GERD, Gallbladder Disease, Pancreatitis, Other (please comment) Additional Gastrointestinal History: alcoholism. chronic elevated liver enzymes Genitourinary History: Denies History Endocrine History: Type 1 Diabetes Additional Endocrine History: TYPE [address] LAGUNA Musculoskeletal History: Joint Pain, Other (please comment) Prosthesis or Implant: Yes (BREAST AUGMENTATION) Additional Musculoskeletal History: Fractured right shoulder Neurological History: Seizures, Other (please comment) Additional Neurological History: SEIZURE WITH DETOX Blood Disorders: Denies History Psychiatric History: Depression, Anxiety Disorders, Substance Abuse, Other ( please comment) Additional Psychiatric History: ALCOHOLISM: CHRONIC AND RECURRENT. PANIC DISORDER History of Sexually Transmitted Diseases: No Cancer History: Denies History In Past Year Been Physically Harmed or Verbally Threatened: No History of MDRO: Yes Type of MDRO: MRSA Other Type of MDRO: TESTED POSITIVE 2014 FOLLOWED BY 2 NEG SWABS History of Other Communicable Diseases: No (MONO, VARICELLA) Tobacco Use: Current Every Day Smoker Alcohol Use: Heavy In the Past 12 Months, Have Used or Abuse Any Substance: Marijuana Previous Surgical History: Yes Type / Date of Surgery: APPENDECTOMY, CHOLECYSTECTOMY, ABDOMINOPLASTY, BREAST AUGMENTATION, RIGHT SHOULDER FX REPAIR X2 Anesthesia Reactions: No Malignant Hyperthermia: No Significant Family History: Asthma, Heart disease, Cancer, Diabetes, Hypertension Additional Family History: EARLY MENOPAUSE - MOTHER Past Medical History Reviewed: Reviewed - No Changes ROS - Limitations ROS Limitations: No Limitations Constitution: REPORTS: Chills. DENIES: Fever Cardiovascular: REPORTS: Chest Pain (Several sharp intermittent chest pains earlier tonight). DENIES: Heart Racing, Heart Palpitations Respiratory: REPORTS: Cough Non Productive. DENIES: Hurts To Breathe, Shortness Of Breath, Wheezing Neurological: REPORTS: Headache, Fainting. DENIES: Numbness, Weakness Gastrointestinal: REPORTS: Abdominal Pain (Mild epigastric abdominal pain), Nausea, Vomitting, Diarrhea. DENIES: Black Stools, Bloody Stools Endocrine: REPORTS: Denies Symptoms, Other (She states that her blood sugars have been running fairly good recently, she last checked her blood sugar at 10 PM last night) Musculoskeletal: REPORTS: Denies MS Symptoms Genitourinary: REPORTS: Denies Symptoms Eyes: REPORTS: Denies Symptoms ENT: REPORTS: Congestion, Sore Throat Skin: DENIES: Rash General Adult Exam - General Appearance General Appearance: POSITIVE: Alert, Cooperative, No Acute Distress - HEENT HEENT: POSITIVE: Head Inspection Nml, Eyes Inspection Nml, Ears Inspection Nml, Nose Inspection Nml, Pharynx Inspect. Nml - Neck Neck: NEGATIVE: Lymphadenopathy - Respiratory Respiratory: POSITIVE: No Respiratory Distress, Breath Sounds Normal - Cardiovascular Cardiovascular: POSITIVE: Regular Rate & Rhythm, No Murmur Peripheral Pulses: Dorsalis-pedis (R): 2+, Dorsalis-pedis (L): 2+ - Abdomen Abdomen: Soft: (All Quadrants), Normal Bowel Sounds: (All Quadrants), No Guarding: (All Quadrants), No Rebound: (All Quadrants), No Palpabale Mass: (All Quadrants) Additional Abdominal Details: She does have some mild epigastric abdominal tenderness - Back Back: NEGATIVE: CVA Tenderness - Skin Skin: POSITIVE: Normal Color, No Rash - Extremities Extremity: Normal ROM: (All Extremities), Normal Inspection: (All Extremities) - Neurological / Psychological Neurological: 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 Lab Results Reviewed by Me: Yes Lab Results:: Laboratory Results 01/05/19 01/05/19 01/05/19 03:30 03:30 03:30 WBC 5.94 RBC 4.03 L Hgb 13.5 Hct 37.6 MCV 93.3 MCH 33.5 H MCHC 35.9 RDW Std Deviation 47.3 RDW Coeff of Farzad 14.4 Plt Count 156 MPV 9.8 Immature Gran % (Auto) 1.5 Neut % (Auto) 57.8 Lymph % (Auto) 33.7 Perry % (Auto) 4.7 L Eos % (Auto) 1.3 Baso % (Auto) 1.0 Immature Gran # (Auto) 0.09 Neut # (Auto) 3.43 Lymph # (Auto) 2.00 Perry # (Auto) 0.28 L Eos # (Auto) 0.08 Baso # (Auto) 0.06 WBC Morphology Comment Normal morphology Plt Morphology Comment Normal morphology RBC Morph Comment Normal morphology VBG pH VBG pCO2 VBG HCO3 VBG Base Excess Sodium 138 Potassium 2.4 L* Chloride 102 Carbon Dioxide 24 Anion Gap 12 BUN 17 Creatinine 0.5 Estimated GFR > 60 BUN/Creatinine Ratio 34.00 H Glucose 175 H Calculated Osmolality 291.0 Calcium 9.5 Magnesium 1.4 L Total Bilirubin 0.5 AST 63 H ALT 30 Alkaline Phosphatase 84 Troponin I < 0.012 C-Reactive Protein 0.8 Total Protein 6.6 Albumin 4.1 Globulin 2.5 Albumin/Globulin Ratio 1.60 Amylase Lipase Serum Alcohol < 10 01/05/19 01/05/19 01/05/19 03:30 03:30 03:30 WBC RBC Hgb Hct MCV MCH MCHC RDW Std Deviation RDW Coeff of Farzad Plt Count MPV Immature Gran % (Auto) Neut % (Auto) Lymph % (Auto) [place] % (Auto) Eos % (Auto) Baso % (Auto) Immature Gran # (Auto) Neut # (Auto) Lymph # (Auto) [place] # (Auto) Eos # (Auto) Baso # (Auto) WBC Morphology Comment Plt Morphology Comment RBC Morph Comment VBG pH 7.53 H VBG pCO2 29 L VBG HCO3 24 VBG Base Excess 2 Sodium Potassium Chloride Carbon Dioxide Anion Gap BUN Creatinine Estimated GFR BUN/Creatinine Ratio Glucose Calculated Osmolality Calcium Magnesium Total Bilirubin AST ALT Alkaline Phosphatase Troponin I C-Reactive Protein Total Protein Albumin Globulin Albumin/Globulin Ratio Amylase 46 Lipase 129 Serum Alcohol CBC and BMP: 01/05/19 03:30 01/05/19 03:30 EKG Interpreted/Reviewed By Me:: Yes EKG Interpretation:: POSITIVE: Normal Sinus Rhythm, Normal Rate, Normal QRS, Normal ST/T - Patient's Progress MDM / ED Course: The patient was hypertensive on arrival with initial blood pressure in the 190s over 120s. An IV was established and she did receive 1 L bolus of normal saline as well as Zofran 4 mg IV. She also received Tylenol 1 g IV for treatment of headache and pain. After administration of fluids and medications the patient was feeling significantly better, her headache was improved. She did continue to have some vague pain in her mid back. Chest x-ray showed no acute cardiopul monary abnormality per radiologist and her respiratory panel was negative. Her blood work reveals a significantly low potassium at 2.4, magnesium of 1.4. The remainder of her blood work was essentially unremarkable. Her venous blood gas revealed a pH of 7.5 to her blood sugar was 146. She did receive 20 mEq of potassium. 2 g of magnesium was ordered IV. Her blood pressure remained elevated in the 180s over 110 range. She has not taken her nighttime blood pressure medication. She was given her dose of metoprolol 25 mg and amlodipine 5 mg by mouth. Because of her significant electrolyte abnormalities and continued high blood pressure, decision was made to admit for continued treatment. I did discuss patient with Dr. Viera and he has agreed to admit the patient for further care. These findings and recommendations were discussed with the patient and she is in agreement with this plan. - Consult Counseled: POSITIVE: Patient, RE: Lab Results, RE: Radiology Results, RE: DX, RE: Need for F/U Patient Care Time - Estimated PCT Patient Care Time (In Minutes): 30 Vital Signs - Recent Vital Signs Vital Signs: Vital Signs (Last 8 hours) Temp Pulse Resp BP BP Pulse Ox 01/05/19 04:26 77 182/114 01/05/19 02:43 96.6 F L 99 20 200/134 178/125 97 - VS Reviewed Vital Signs Reviewed: Yes Discharge Clinical Impression: Viral URI, Vomiting, Dehydration, Hypokalemia, Hypomagnesemia, Hypertension Condition: Fair Follow Up With: Harshil Laguna [Primary Care Provider] - Date Decision to Admit to Inpatient: 01/05/19 Time Decision to Admit to Inpatient: 06:00
[2019-01-05] MEDS ORDERED: LIDOCAINE W/ SODIUM BICARB 0.5 ML SYR SUBD PRN (06:46)
[2019-01-05] MEDS ORDERED: Insulin Lispro Flexpen 300 UNIT/3 ML INSULN.PEN SUBCUT ONE (06:46)
[2019-01-05] MEDS ORDERED: ONDANSETRON 4 MG/2 ML VIAL IVP PRN (06:46)
[2019-01-05] MEDS ORDERED: CALCIUM CARBONATE 500 MG (TUMS) CHEWABLE TABLET PO PRN (06:46)
[2019-01-05] MEDS ORDERED: DOCUSATE 100 MG CAPSULE PO PRN (06:46)
[2019-01-05] MEDS ORDERED: ACETAMINOPHEN 325 MG TABLET PO PRN (06:46)
[2019-01-05] MEDS ORDERED: OMEPRAZOLE 40 MG CAPSULE PO SCH (07:15)
[2019-01-05] MEDS: Potassium Chloride Tab 10 MEQ TAB PO SCH ×2 (08:31→12:19)
[2019-01-05] MEDS ORDERED: cefTRIAXone Inj 2 GM in Sodium Chloride 0.9% 100 ML IV ONE (09:28)
[2019-01-05] MEDS ORDERED: POTASSIUM CHLORIDE 20 MEQ TAB PO ONE (09:30)
[2019-01-05] MEDS ORDERED: NICOTINE 21 MG /DAY PATCH TRANSDERM ONE (09:31)
[2019-01-05] MEDS ORDERED: Potassium Chloride 20mEq Packet PO ONE (10:00)
--- NOTE | 2019-01-05 10:27 | PDOC ---
HPI - History of Present Illness History of Present Illness: Is a very nice 48-year-old female well-known to our service. Past medical history significant for chronic pancreatitis secondary to alcoholism. Presented today with some nausea and vomiting to the emergency room. When I am seeing the patient said that her nausea has disappeared and she tolerated her food well she thought that this morning she was congested with some postnasal drip and thinks this gave her nausea. She has no abdominal pain no diarrhea. I did ask her if she actually lost consciousness she said now she's never lost consciousness and was just lightheaded she states that she has not drank any alcohol for the last 3 weeks. On physical exam her sinus symptoms are tender to touch. I will treat the patient for her sinusitis with the 2 g of Rocephin IV and then to complete a 10 day course of Augmentin. She will need a follow-up with primary care physician as well. I will also replace her with 4 g of magnesium and potassium I will recheck her labs this afternoon if her electrolytes are normalized patient will be discharged home in stable and improved condition as per her request. Past Medical History Medical History: 1. Hypertension. 2. tobacco abuse. 3. Alcohol abuse, her pattern is typically binge drinking. 4. Chronic pancreatitis, most likely. 5. Psychiatric disorder, unclear what the underlying disorder is. Could be depression, bipolar disorder, or posterior medics stress disorder. 6. Medical noncompliance. 7. Calcification of the pancreas on CT indicating chronic pancreatitis. 8. Diabetes mellitus, type I Surgical History: 1. History of cholecystectomy. 2. Appendectomy. 3. Breast augmentation and tummy tuck. 4. Shoulder surgery Family History: Reviewed an Not Pertinent Pertinent Family History: The patient is adopted but states her biologic mother had diabetes type I and when she was 4 years of age. She states her father is developing memory problems now. Past Social History: Smokes, lives in [place] with her father. Does not curr ently work. Binge drinking alcohol pattern. She does have a daughter who is healthy. Tobacco Use: Current Every Day Smoker In the Past 12 Months, Have Used or Abuse Any of the Following Substance: Marijuana Medication / Allergies Home Medications: Home Medications Medication Instructions Recorded Confirmed Type insulin lispro (U- 100) 100 0 - 14 unit SUBCUT AC HS #3 ml 02/15/18 01/05/19 Rx unit/mL subcutaneous pen insulin glargine (U-100) 100 18 unit SUBCUT BEDTIME ml 03/02/18 01/05/19 History unit/mL (3 mL) subcutaneous pen omeprazole 40 mg capsule,delayed 40 mg PO DAILY #30 cap 04/24/18 01/05/19 Rx release pen needle, diabetic, safety 30 0 ea .ROUTE .MEDSUPPLY #1 pkg 05/03/18 01/05/19 Rx gauge x 1/3" Blood Sugar Diagnostic [Contour 0 film .ROUTE .MEDSUPPLY 06/02/18 01/05/19 History Test Strip] ondansetron HCl 4 mg tablet 4 mg PO Q6H PRN #30 tab 07/25/18 01/05/19 Rx metoprolol tartrate 25 mg tablet 25 mg PO BID #60 tab 08/11/18 01/05/19 Rx amlodipine 5 mg tablet 5 mg PO DAILY #30 tab 09/06/18 01/05/19 Rx Multivitamin Tab [Thera Tab] 1 tab PO DAILY tab 10/21/18 01/05/19 Rx Potassium Chloride [Klor-Con] 10 meq PO BID #20 tab 10/21/18 01/05/19 Rx insulin NPH isophane U- 100 human 10 unit SUBCUT QAM #10 ml 11/13/18 01/05/19 Rx 100 unit/mL subcutaneous suspension levothyroxine 50 mcg tablet 50 mcg PO DAILY@0530 #90 tab 11/13/18 01/05/19 Rx Allergies/Adverse Reactions: Allergies Allergy/AdvReac Type Severity Reaction Status Date / Time codeine AdvReac HALLUCINATI Verified 01/05/19 02:36 ONS levofloxacin [From Levaquin] AdvReac HALLUCINATI Verified 01/05/19 02:36 ONS oxycodone AdvReac HALLUCINATI Verified 01/05/19 02:36 ONS Review of Systems - Review of Systems All Systems: Reviewed & No Additional Complaints Except as Stated - Ear/Nose Exam Ear/Nose Exam: REPORTS: Sinus Pain, Congestion - Respiratory Respiratory: DENIES: Negative System Review, Cough, Sputum, Dyspnea At Rest, Dyspnea with Exertion, Pleuritic Pain, Hemoptysis, Wheezing, Other, See HPI - Cardiovascular Cardiovascular: DENIES: Negative System Review, Chest Pain, Edema, Syncope, Palpitations, Orthopnea, Paroxysmal Nocturnal Dyspnea, Other, See HPI - Gastrointestinal Gastrointestinal / Abdominal: REPORTS: Nausea, Vomiting. DENIES: Diarrhea, Abdominal Pain, Bloody Stool, Melena, Bright Red Blood per Rectum - Musculoskeletal Musculoskeletal: DENIES: Negative System Review, Back Pain, Neck Pain, Joint Swelling, Calf Pain, Muscle Pain, Cramping, Joint Pain - Hands, Joint Pain - Elbows, Joint Pain - Shoulders, Joint Pain - Hips, Joint Pain - Knees, Joint Pain - Feet, AM Stiffness, Other, See HPI - Neurological Neurologic: DENIES: Headache, Weakness, LOC, Confusion Exam - Vitals Vital Signs: Vital Signs Temperature 97.9 F Temperature Source Oral Pulse Rate [Pulse Oximeter] 79 Pulse Rate 78 Respiratory Rate 18 Blood Pressure [Left Arm] 153/92 Blood Pressure [Right Arm] 178/125 Blood Pressure 174/125 Pulse Ox 97 Oxygen Delivery Method Room Air Height 5 ft 3 in Weight 126 lb 6 oz - General General Appearance: No Acute Distress, Cooperative - Head Head Exam: Normal Inspection, Normocephalic, Atraumatic Additional Head Exam Details: Pain bilateral maxillary sinuses on palpation - ENT ENT Exam: POSITIVE: Normal Oropharynx, Mucous Membranes Moist - Respiratory Respiratory Exam: POSITIVE: Clear to Auscultation - Bilaterally, Breathing Non Labored, Normal To Percussion, Normal to Percussion and Palpation - Cardiovascular Cardiovascular Exam: POSITIVE: RRR, No Murmur, No Clicks, No Gallops, No Rubs, PMI Non-Displaced - GI/Abdominal GI/Abdominal Exam: POSITIVE: Normal Bowel Sounds, Non Tender, Non Distended, Soft, No Masses, No Hepatomegaly, No Splenomegaly, No Organomegaly - Extremities Extremities Exam: POSITIVE: No Clubbing Present, No Edema Present, No Cyanosis Present - Neurological Neurological Exam: POSITIVE: Alert, Oriented x 3, No Facial Droop, Speech Intact / Clear, Moves All Extremities Equally - Psychiatric Psychiatric Exam: POSITIVE: Normal Affect, Normal Mood Results - Labs CBC and BMP: 01/05/19 03:30 01/05/19 03:30 Assessment and Plan - Patient Problems (1) Sinus infection Current Visit: Yes Status: Acute Code(s): J32.9 - Chronic sinusitis, unspecified (2) Dehydration Current Visit: Yes Status: Acute Code(s): E86.0 - Dehydration (3) Hypokalemia Current Visit: Yes Status: Acute Code(s): E87.6 - Hypokalemia (4) Hypomagnesemia Current Visit: Yes Status: Acute Code(s): E83.42 - Hypomagnesemia
[2019-01-05 13:43] VITALS: BP 136/96; RESP 14; TEMP 97.6; O2SAT 96
[2019-01-05 15:00] LABS: BLOOD UREA NITROGEN 10 mg/dL (7-22); BUN/CREATININE RATIO 14.28 (6-20); SERUM ALBUMIN 4.1 g/dL (3.5-4.8)
[2019-01-05] MEDS ORDERED: Insulin Glargine SoloStar Inj 100 UNIT/ML INSULN.PEN SUBCUT SCH (21:00)
[2019-01-05] MEDS ORDERED: Metoprolol TARTRATE Tab 25 MG TAB PO SCH (21:00)
[2019-01-06] MEDS ORDERED: LEVOTHYROXINE 50 MCG TABLET PO SCH (05:30)
[2019-01-06] MEDS ORDERED: AmLODIPine Tab 5 MG TABLET PO SCH (09:00)
== END 2019-01-05 16:02 | disposition home or self-care (01) ==
LOC: ER 02:34 → MED/SURG 02:34
PROVIDERS: ADMIT Internal Medicine; ATTEND Internal Medicine

== ENCOUNTER 2019-01-21 08:32 | Observation (INO) ==
--- NOTE | 2019-01-21 08:47 | PDOC ---
General Adult HPI - General Chief Complaint: General Medical Stated Complaint: not feeling well Date Seen by Provider: 01/21/19 Time Seen by Provider: 08:47 Source: POSITIVE: Patient Exam Limitations: POSITIVE: No limitations Nurse's Notes Reviewed & Considered: Yes - History of Present Illness Initial Comment: Patient is a 48-year-old female who presents to the emergency department with nausea vomiting and abdominal discomfort. Patient indicates she has a history of diabetes and has not been taking her medications in addition she has been drinking heavily over the past 4 days or so. She reports she did drink a couple fifths during that time. She indicates she does have epigastric abdominal pain and a history of pancreatitis. It feels somewhat similar to priors. Been worse with vomiting. Patient feels that she is getting the shakes as well and is not doing well. She reports that this was set off by news that her father had cancer which send her back to drinking. Have you received a tetanus shot in the past 10 years?: Yes - Patient Home Medications Home Medications: Home Medications insulin lispro (U- 100) 100 unit/mL subcutaneous pen 0 - 14 unit SUBCUT AC HS #3 ml 02/15/18 insulin glargine (U-100) 100 unit/mL (3 mL) subcutaneous pen 18 unit SUBCUT BEDTIME ml 03/02/18 omeprazole 40 mg capsule,delayed release 40 mg PO DAILY #30 cap 04/24/18 pen needle, diabetic, safety 30 gauge x 1/3" 0 ea .ROUTE .MEDSUPPLY #1 pkg 05/03/18 Blood Sugar Diagnostic [Contour Test Strip] 0 film .ROUTE .MEDSUPPLY 06/02/18 ondansetron HCl 4 mg tablet 4 mg PO Q6H PRN #30 tab 07/25/18 metoprolol tartrate 25 mg tablet 25 mg PO BID #60 tab 08/11/18 amlodipine 5 mg tablet 5 mg PO DAILY #30 tab 09/06/18 Multivitamin Tab [Thera Tab] 1 tab PO DAILY tab 10/21/18 Potassium Chloride [Klor-Con] 10 meq PO BID #20 tab 10/21/18 insulin NPH isophane U- 100 human 100 unit/mL subcutaneous suspension 10 unit SUBCUT QAM #10 ml 11/13/18 levothyroxine 50 mcg tablet 50 mcg PO DAILY@0530 #90 tab 11/13/18 Amoxicill/Clav 875/125mg [Augmentin 875/125mg] 1 ea PO BID #20 tab 01/05/19 - Patient Allergies Allergies/Adverse Reactions: Allergies Allergy/AdvReac Type Severity Reaction Status Date / Time codeine AdvReac HALLUCINATI Verified 01/21/19 08:35 ONS levofloxacin [From Levaquin] AdvReac HALLUCINATI Verified 01/21/19 08:35 ONS oxycodone AdvReac HALLUCINATI Verified 01/21/19 08:35 ONS Past Medical History - heen HEENT History: Other (please comment) Additional HEENT History: "BULL'S EYE VISION" Cardiovascular History: Hypertension, Other (please comment) Additional Cardiovasular History: PALPITATIONS Respiratory History: Pneumonia, Snoring, Other (please comment) Additional Respiratory History: chronic tobacco use Gastrointestinal History: GERD, Gallbladder Disease, Pancreatitis, Other (please comment) Additional Gastrointestinal History: alcoholism. chronic elevated liver enzymes Genitourinary History: Denies History Endocrine History: Type 1 Diabetes Additional Endocrine History: TYPE [address] LAGUNA Musculoskeletal History: Joint Pain, Other (please comment) Prosthesis or Implant: Yes (BREAST AUGMENTATION) Additional Musculoskeletal History: Fractured right shoulder Neurological History: Seizures, Other (please comment) Additional Neurological History: SEIZURE WITH DETOX Blood Disorders: Denies History Psychiatric History: Depression, Anxiety Disorders, Substance Abuse, Other (please comment) Additional Psychiatric History: ALCOHOLISM: CHRONIC AND RECURRENT. PANIC DISORDER History of Sexually Transmitted Diseases: No Cancer History: Denies History History of MDRO: Yes Other Type of MDRO: TESTED POSITIVE 2014 FOLLOWED BY 2 NEG SWABS History of Other Communicable Diseases: No (MONO, VARICELLA) Alcohol Use: Heavy In the Past 12 Months, Have Used or Abuse Any Substance: Marijuana Previous Surgical History: Yes Type / Date of Surgery: APPENDECTOMY, CHOLECYSTECTOMY, ABDOMINOPLASTY, BREAST AUGMENTATION, RIGHT SHOULDER FX REPAIR X2 Anesthesia Reactions: No Malignant Hyperthermia: No Significant Family History: Asthma, Heart disease, Cancer, Diabetes, Hypertension Additional Family History: EARLY MENOPAUSE - MOTHER Past Medical History Reviewed: Reviewed - No Changes ROS - Limitations ROS Limitations: No Limitations Constitution: REPORTS: Denies Symptoms Cardiovascular: REPORTS: Denies Cardiac Symptoms Respiratory: REPORTS: Denies Resp Symptoms Neurological: REPORTS: Denies Neuro Symptoms Gastrointestinal: REPORTS: Abdominal Pain, Nausea, Vomitting Endocrine: REPORTS: Fatigue Musculoskeletal: REPORTS: Denies MS Symptoms Genitourinary: REPORTS: Denies Symptoms Eyes: REPORTS: Denies Symptoms ENT: REPORTS: Denies Symptoms Skin: REPORTS: Denies Skin Symptoms Lympathic: REPORTS: Denies Lympathic Symptoms Immunologic: POSITIVE: Denies Symptoms Psychiatric: POSITIVE: Denies Psych Symptoms General Adult Exam - General Appearance General Appearance: POSITIVE: Alert, Cooperative, No Acute Distress, No Evidence of Trauma - HEENT HEENT: POSITIVE: Head Inspection Nml - Pupils Pupil Size: 4 mm: Bilateral - Neck Neck: POSITIVE: Normal Inspection - Respiratory Respiratory: POSITIVE: No Respiratory Distress - Cardiovascular Cardiovascular: POSITIVE: Tachycardia - Abdomen Abdomen: Soft: (All Quadrants) Additional Abdominal Details: Minimal tenderness to palpation without rebound or guarding - Back Back: POSITIVE: Normal Inspection - Skin Skin: POSITIVE: Normal Color, Warm, Dry - Extremities Additional Extremities Details: No edema or swelling. - Neurological / Psychological Neurological: POSITIVE: 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, Oriented X3 General Adult Progress - Results Reviewed by me Lab Results Reviewed by Me: Yes Lab Results:: Laboratory Results 01/21/19 01/21/19 01/21/19 08:55 08:55 08:55 WBC 6.97 RBC 4.58 Hgb 16.1 H Hct 44.6 MCV 97.4 MCH 35.2 H MCHC 36.1 RDW Std Deviation 52.6 H RDW Coeff of Farzad 15.1 H Plt Count 146 MPV 9.4 Immature Gran % (Auto) 0.4 Neut % (Auto) 79.5 Lymph % (Auto) 18.2 Jay % (Auto) 0.9 L Eos % (Auto) 0.3 Baso % (Auto) 0.7 Immature Gran # (Auto) 0.03 Neut # (Auto) 5.54 Lymph # (Auto) 1.27 Jay # (Auto) 0.06 L Eos # (Auto) 0.02 Baso # (Auto) 0.05 WBC Morphology Comment Normal morphology Plt Morphology Comment Normal morphology RBC Morph Comment Normal morphology VBG pH VBG pCO2 VBG HCO3 VBG Base Excess Sodium 147 H Potassium 3.8 Chloride 99 Carbon Dioxide 14 L Anion Gap 34 H BUN 12 Creatinine 0.7 Estimated GFR > 60 BUN/Creatinine Ratio 17.14 Glucose 257 H Calculated Osmolality 312.0 H Lactic Acid 11.5 H Calcium 8.9 Magnesium 1.4 L Total Bilirubin 0.8 AST 199 H ALT 69 H Alkaline Phosphatase 161 H Total Protein 8.1 H Albumin 5.2 H Globulin 2.9 Albumin/Globulin Ratio 1.70 Amylase 92 Lipase 69 Acetone Level 01/21/19 01/21/19 08:55 09:00 WBC RBC Hgb Hct MCV MCH MCHC RDW Std Deviation RDW Coeff of Farzad Plt Count MPV Immature Gran % (Auto) Neut % (Auto) Lymph % (Auto) Jay % (Auto) Eos % (Auto) Baso % (Auto) Immature Gran # (Auto) Neut # (Auto) Lymph # (Auto) Jay # (Auto) Eos # (Auto) Baso # (Auto) WBC Morphology Comment Plt Morphology Comment RBC Morph Comment VBG pH 7.36 VBG pCO2 30 L VBG HCO3 17 L VBG Base Excess -9 L Sodium Potassium Chloride Carbon Dioxide Anion Gap BUN Creatinine Estimated GFR BUN/Creatinine Ratio Glucose Calculated Osmolality Lactic Acid Calcium Magnesium Total Bilirubin AST ALT Alkaline Phosphatase Total Protein Albumin Globulin Albumin/Globulin Ratio Amylase Lipase Acetone Level Negative CBC and BMP: 01/21/19 08:55 01/21/19 08:55 - Patient's Progress MDM / ED Course: Ashley is a 48-year-old female who presents to the emergency department with nausea vomiting. Her vital signs are notable for hypertension and tachycardia and examination demonstrates mild tenderness to palpation in the epigastrium. Differential diagnosis includes but is not limited to pancreatitis, nausea vomiting, electrolyte abnormality, alcohol intoxication, keto acidosis. Patient's lipase and amylase are within normal limits. Her CBC demonstrates no significant leukocytosis. Chemistry panel demonstrates hypomagnesemia. And mild hyperglycemia. Patient's lactate was significantly elevated. I do not suspect infection at this time though she does appear to be in some component of alcohol withdrawal. She was treated with 4 mg of Zofran and 4 g of magnesium. Patient received a bolus of normal saline. She attempted oral intake with eyes however became very nauseous and was vomiting again. Subsequently is given a dditional dose of Zofran and also treated with famotidine 20 mg IV. She will be admitted to the hospital for observation. Patient Care Time - Estimated PCT Patient Care Time (In Minutes): 35 Vital Signs - Recent Vital Signs Vital Signs: Vital Signs (Last 8 hours) Temp Pulse Resp BP Pulse Ox 01/21/19 09:10 96.9 F 115 H 20 171/119 93 01/21/19 08:44 96.9 F 115 H 20 171/119 93 - VS Reviewed Vital Signs Reviewed: Yes Discharge Clinical Impression: Hypomagnesemia, Dehydration Alcohol withdrawal Qualifiers: Complication of substance-induced condition: uncomplicated Qualified Code(s): F10.230 - Alcohol dependence with withdrawal, uncomplicated Discharge Disposition: Admit to Observation Condition: Fair Follow Up With: Harshil Laguna [Primary Care Provider] - Date Decision to Admit to Inpatient: 01/21/19 Time Decision to Admit to Inpatient: 09:35
[2019-01-21] MEDS ORDERED: Sodium Chloride 0.9% 1,000 ML PRIMARY IV ONE (08:54)
[2019-01-21] MEDS ORDERED: ONDANSETRON 4 MG/2 ML VIAL IVP ONE ×2 (08:54→09:59)
[2019-01-21] MEDS ORDERED: LORazepam 2 MG/1 ML VIAL IVP ONE ×2 (08:55→11:32)
[2019-01-21 09:01] LABS: BASOPHILS # (AUTO) 0.05 10*3/UL; BASOPHILS % (AUTO) 0.7 % (0-1); EOSINOPHILS # (AUTO) 0.02 10*3/UL; EOSINOPHILS % (AUTO) 0.3 % (0-8); Hematocrit [HCT] 44.6 % (37.0-47.0); Hemoglobin [HGB] 16.1 g/dL (12.0-16.0); LYMPHOCYTES # (AUTO) 1.27 10*3/uL; MEAN CORPUSCULAR HEMOGLOBIN 35.2 PG (27-31); MEAN CORPUSCULAR HGB CONC 36.1 g/dL (33-37); MEAN CORPUSCULAR VOLUME 97.4 FL (81-99); MEAN PLATELET VOLUME 9.4 FL (7.4-12.2); MONOCYTES # (AUTO) 0.06 10*3/UL (0.3-0.8); MONOCYTES % (AUTO) 0.9 % (5-15); NEUTROPHILS # (AUTO) 5.54 10*3/UL; NEUTROPHILS % (AUTO) 79.5 % (50-80); RED BLOOD COUNT 4.58 10^6/uL (4.20-5.40)
[2019-01-21 09:04] LABS: PLATELET MORPHOLOGY COMMENT NORMAL MORPHOLOGY (NORM); RBC MORPHOLOGY COMMENT NORMAL MORPHOLOGY (NORM); WBC MORPHOLOGY COMMENT NORMAL MORPHOLOGY (NORM)
[2019-01-21 09:09] LABS: VENOUS PH 7.36 (7.32-7.42)
[2019-01-21 09:11] LABS: BLOOD UREA NITROGEN 12 mg/dL (7-22); BUN/CREATININE RATIO 17.14 (6-20); LIPASE 69 IU/L (23-300); SERUM ALBUMIN 5.2 g/dL (3.5-4.8)
[2019-01-21] MEDS ORDERED: Magnesium Sulfate 4gm (Premix) 4 GM/100 ML BAG IV ONE (09:23)
[2019-01-21] MEDS ORDERED: FAMOTIDINE 20 MG/2 ML VIAL IVP ONE (10:00)
--- NOTE | 2019-01-21 11:08 | PDOC ---
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 She is withdrawing from alcohol she is shaking. She said she started drinking about 5 days ago, a pint a day every day. The last time she had a drink was 7 hours before presentation. Because of all the symptoms came into the ER she was found to be dehydrated and withdrawing from alcohol she was giving Ativan, fluid and was admitted. By the time she came into the floor she was still having withdrawal from alcohol so she was shaking and dry heaving. she had some epigastric pain. She denied fever. She did not take her medications for 2 days now. Past Medical History Medical History: 1. Hypertension. 2. tobacco abuse. 3. Alcohol abuse, her pattern is typically binge drinking. 4. Chronic pancreatitis, most likely. 5. Psychiatric disorder, unclear what the underlying disorder is. Could be depression, bipolar disorder, or posttraumatic stress disorder. 6. Medical noncompliance. 7. Calcification of the pancreas on CT indicating chronic pancreatitis. 8. Diabetes mellitus, type I Surgical History: 1. History of cholecystectomy. 2. Appendectomy. 3. Breast augmentation and tummy tuck. 4. Shoulder surgery Family History: Reviewed an Not Pertinent Pertinent Family History: The patient is adopted but states her biologic mother had diabetes type I and when she was 4 years of age. She states her father is developing memory problems now. Past Social History: Smokes, lives in [place] with her father. Does not currently work. Binge drinking alcohol pattern. She does have a daughter who is healthy. Tobacco Use: Current Every Day Smoker In the Past 12 Months, Have Used or Abuse Any of the Following Substance: Marijuana Medication / Allergies Home Medications: Home Medications Medication Instructions Recorded Confirmed Type insulin lispro (U- 100) 100 0 - 14 unit SUBCUT AC HS #3 ml 02/15/18 01/05/19 Rx unit/mL subcutaneous pen insulin glargine (U-100) 100 18 unit SUBCUT BEDTIME ml 03/02/18 01/05/19 History unit/mL (3 mL) subcutaneous pen omeprazole 40 mg capsule,delayed 40 mg PO DAILY #30 cap 04/24/18 01/05/19 Rx release pen needle, diabetic, safety 30 0 ea .ROUTE .MEDSUPPLY #1 pkg 05/03/18 01/05/19 Rx gauge x 1/3" Blood Sugar Diagnostic [Contour 0 film .ROUTE .MEDSUPPLY 06/02/18 01/05/19 History Test Strip] ondansetron HCl 4 mg tablet 4 mg PO Q6H PRN #30 tab 07/25/18 01/05/19 Rx metoprolol tartrate 25 mg tablet 25 mg PO BID #60 tab 08/11/18 01/05/19 Rx amlodipine 5 mg tablet 5 mg PO DAILY #30 tab 09/06/18 01/05/19 Rx Multivitamin Tab [Thera Tab] 1 tab PO DAILY tab 10/21/18 01/05/19 Rx Potassium Chloride [Klor-Con] 10 meq PO BID #20 tab 10/21/18 01/05/19 Rx insulin NPH isophane U- 100 human 10 unit SUBCUT QAM #10 ml 11/13/18 01/05/19 Rx 100 unit/mL subcutaneous suspension levothyroxine 50 mcg tablet 50 mcg PO DAILY@0530 #90 tab 11/13/18 01/05/19 Rx Amoxicill/Clav 875/125mg 1 ea PO BID #20 tab 01/05/19 Rx [Augmentin 875/125mg] Allergies/Adverse Reactions: Allergies Allergy/AdvReac Type Severity Reaction Status Date / Time codeine AdvReac HALLUCINATI Verified 01/21/19 12:11 ONS levofloxacin [From Levaquin] AdvReac HALLUCINATI Verified 01/21/19 12:11 ONS oxycodone AdvReac HALLUCINATI Verified 01/21/19 12:11 ONS Review of Systems - Review of Systems All Systems: Reviewed & No Additional Complaints Except as Stated Exam - Vitals Vital Signs: Vital Signs Temperature 96.9 F Temperature Source Temporal Artery Scan Pulse Rate [Pulse Oximeter] 115 Respiratory Rate 20 Blood Pressure [Left Arm] 171/119 Pulse Ox 93 Oxygen Delivery Method Room Air Height 5 ft 3 in Weight 130 lb - General Additional General Exam Details: She was dry heaving - Head Head Exam: Normal Inspection - Eye Eye Exam: POSITIVE: Normal Appearance - ENT ENT Exam: POSITIVE: Normal Exam - Neck Neck Exam: Normal Inspection - Respiratory Respiratory Exam: POSITIVE: Clear to Auscultation - Bilaterally - Cardiovascular Cardiovascular Exam: POSITIVE: Tachycardia - GI/Abdominal GI/Abdominal Exam: POSITIVE: Normal Bowel Sounds, Non Distended, Soft, No Organomegaly Additional GI/Abdominal Exam Details: Some tenderness present in the epigastrium - Rectal Rectal Exam: POSITIVE: Deferred - External Exam: POSITIVE: Deferred - Extremities Extremities Exam: POSITIVE: Normal Inspection - Back Back Exam: POSITIVE: Normal Inspection - Neurological Neurological Exam: POSITIVE: Alert, Oriented x 3, CN II-XII Intact, No Facial Droop, Speech Intact / Clear, Moves All Extremities Equally - Psychiatric Psychiatric Exam: POSITIVE: Anxious Results - Labs CBC and BMP: 01/21/19 08:55 01/21/19 08:55 Assessment and Plan - Patient Problems (1) Alcohol withdrawal syndrome Current Visit: No Status: Acute Comment: We will put her on CIWA sliding scale, will write for IV fluids and multivitamins. Code(s): F10.239 - Alcohol dependence with withdrawal, unspecified (2) Nausea and vomiting Current Visit: No Status: Acute Comment: Likely secondary to gastritis from alcohol. Put on IV fluids and treat her symptomatically. Code(s): R11.2 - Nausea with vomiting, unspecified (3) Diabetes mellitus Current Visit: No Status: Acute Comment: We will put her on Lantus and sliding scale. We'll watch her blood sugar. Code(s): E11.9 - Type 2 diabetes mellitus without complications Qualifiers: Diabetes mellitus type: type 1 Diabetes mellitus complication status: without complication Qualified Code(s): E10.9 - Type 1 diabetes mellitus without complications (4) Hypertension Current Visit: No Status: Chronic Comment: We'll restart her blood pressure medication Code(s): I10 - Essential (primary) hypertension Qualifiers: Hypertension type: essential hypertension Qualified Code(s): I10 - Essential (primary) hypertension (5) Elevated lactic acid level Current Visit: Yes Status: Acute Comment: I think this is secondary to hypovolemia from the vomiting, will rehydrate, will order a blood culture and repeat lactate. We'll hold off on antibiotics for now Code(s): R79.89 - Other specified abnormal findings of blood chemistry
[2019-01-21] MEDS ORDERED: Metoclopramide Inj 10 MG/2 ML VIAL ONE (11:28)
[2019-01-21] MEDS ORDERED: LORazepam Inj(ETOH withdrawal) 2 MG/ML VIAL ONE (11:30)
[2019-01-21] MEDS ORDERED: MAGNESIUM 400 MG/5 ML - 30 ML (MILK OF MAGNESIA) PO PRN (11:30)
[2019-01-21] MEDS ORDERED: ONDANSETRON 4 MG/2 ML VIAL IVP PRN (11:30)
[2019-01-21] MEDS ORDERED: LIDOCAINE W/ SODIUM BICARB 0.5 ML SYR SUBD PRN (11:30)
[2019-01-21] MEDS ORDERED: Metoclopramide Inj 10 MG/2 ML VIAL IVP ONE (11:31)
[2019-01-21] MEDS ORDERED: Metoclopramide Inj 10 MG/2 ML VIAL IVP PRN (11:35)
[2019-01-21] MEDS ORDERED: Influenza 18-19 Vaccine (6mo+) 60 MCG/0.5 ML SYRINGE IM ONE (11:49)
[2019-01-21] MEDS: NICOTINE 21 MG /DAY PATCH TRANSDERM SCH (13:47)
[2019-01-21] MEDS: LORazepam Inj(ETOH withdrawal) 2 MG/ML VIAL IVP PRN ×3 (13:57→17:33)
[2019-01-21] MEDS: Sodium Chloride 0.9% 1,000 ML PRIMARY IV SCH ×2 (15:26→19:31)
[2019-01-21] MEDS: Insulin Lispro Flexpen 300 UNIT/3 ML INSULN.PEN SUBCUT SCH (17:52)
[2019-01-21] MEDS ORDERED: Ertapenem Inj 1 GM in Sodium Chloride 0.9% 100 ML IV SCH (19:30)
[2019-01-21] MEDS: LORazepam 1 mg tab (ETOH withdrawal) PO PRN ×3 (19:30→23:44)
[2019-01-21] MEDS: Loperamide Tab 2 MG TABLET PO PRN ×3 (19:30→23:44)
--- NOTE | 2019-01-21 19:57 | DI ---
[facility] CHEST X-RAY, 01/21/2019 7:26 PM : Clinical History: Fever. Previous Exam: 03/22/2018. Soft Tissues: No acute soft tissue abnormality. Bones: Healed fracture of the neck of the right humerus. Otherwise normal. Heart: Heart size is at the upper limits of normal for this projection. No CHF. Lungs: No infiltrates. Effusion(s): None. Mediastinum: Normal mediastinum. Nodules: No pulmonary nodules. Reading: Normal chest x-ray.
[2019-01-21] MEDS: Metoprolol TARTRATE Tab 25 MG TAB PO SCH (20:44)
[2019-01-21] MEDS: MAGNESIUM OXIDE 400 MG TABLET PO SCH (20:44)
[2019-01-21] MEDS ORDERED: Insulin Glargine SoloStar Inj 100 UNIT/ML INSULN.PEN SUBCUT SCH (21:00)
[2019-01-22] MEDS: LORazepam 1 mg tab (ETOH withdrawal) PO PRN ×6 (01:39→20:23)
[2019-01-22] MEDS: Sodium Chloride 0.9% 1,000 ML PRIMARY IV SCH (02:54)
[2019-01-22 04:39] LABS: BLOOD UREA NITROGEN 5 mg/dL (7-22); SERUM ALBUMIN 3.8 g/dL (3.5-4.8)
[2019-01-22] MEDS: LEVOTHYROXINE 50 MCG TABLET PO SCH (05:38)
[2019-01-22] MEDS: Insulin Lispro Flexpen 300 UNIT/3 ML INSULN.PEN SUBCUT SCH ×3 (09:01→16:24)
[2019-01-22] MEDS: MAGNESIUM OXIDE 400 MG TABLET PO SCH ×2 (09:18→20:19)
[2019-01-22] MEDS: Thiamine Tab 100 MG TAB PO SCH (09:18)
[2019-01-22] MEDS: AmLODIPine Tab 5 MG TABLET PO SCH (09:18)
[2019-01-22] MEDS: POTASSIUM CHLORIDE 20 MEQ TAB PO SCH ×3 (09:18→17:40)
[2019-01-22] MEDS: Metoprolol TARTRATE Tab 25 MG TAB PO SCH ×2 (09:18→20:23)
[2019-01-22] MEDS: NICOTINE 21 MG /DAY PATCH TRANSDERM SCH (09:19)
[2019-01-22] MEDS: PANTOPRAZOLE IV 40 MG VIAL IVP SCH (09:20)
[2019-01-22] MEDS: LORazepam Inj(ETOH withdrawal) 2 MG/ML VIAL IVP PRN (12:09)
[2019-01-22] MEDS ORDERED: Magnesium Sulfate 2gm (Premix) 2 GM/50 ML BAG IV ONE (13:20)
--- NOTE | 2019-01-22 13:25 | PDOC(PROG) ---
Date of Service: 01/22/19 Time of Service: 13:22 Interval History: Patient complains of not sleeping very well. Has abdominal pain. No vomiting but nauseous. No chest pain and no shortness breath. Objective : Data - Labs CBC and BMP: 01/21/19 08:55 01/22/19 04:00 Additional Lab Results: Selected Entries 01/22/19 07:00 01/22/19 08:52 01/22/19 11:00 Finger Stick Blood Glucose 65 L 90 82 Objective : Exam - General General Appearance: No Acute Distress, Cooperative Additional General Exam Details: Vital Signs - Last Taken Temperature 98.3 F 01/22/19 11:56 Pulse Rate 92 01/22/19 11:56 Respiratory Rate 20 01/22/19 11:56 Blood Pressure 117/95 01/22/19 11:56 Pulse Ox 94 01/22/19 11:13 - Eye Eye Exam: No Scleral Icterus - ENT ENT Exam: Mucous Membranes Moist - Neck Neck Exam: JVP is not Raised - Respiratory Respiratory Exam: Clear to Auscultation - Bilaterally, Breathing Non Labored - Cardiovascular Cardiovascular Exam: RRR, No Murmur, No Clicks, No Gallops, No Rubs, No JVD - GI/Abdominal GI/Abdominal Exam: Normal Bowel Sounds, Non Tender, Non Distended, Soft - Extremities Extremities Exam: No Clubbing Present, No Edema Present, No Cyanosis Present - Neurological Neurological Exam: Alert, Oriented x 3, No Facial Droop, Speech Intact / Clear, Moves All Extremities Equally - Psychiatric Psychiatric Exam: Anxious Assessment and Plan - Patient Problems (1) Alcohol withdrawal syndrome Current Visit: Yes Status: Acute Code(s): F10.239 - Alcohol dependence with withdrawal, unspecified (2) Diabetes mellitus Current Visit: Yes Status: Acute Code(s): E11.9 - Type 2 diabetes mellitus without complications Qualifiers: Diabetes mellitus type: type 1 Diabetes mellitus complication status: with hypoglycemia Diabetes mellitus complication detail: without coma Qualified Code(s): E10.649 - Type 1 diabetes mellitus with hypoglycemia without coma (3) Nausea and vomiting Current Visit: Yes Status: Acute Code(s): R11.2 - Nausea with vomiting, unspecified (4) Hypertension Current Visit: Yes Status: Chronic Code(s): I10 - Essential (primary) hypertension Qualifiers: Hypertension type: essential hypertension Qualified Code(s): I10 - Essential (primary) hypertension (5) Elevated lactic acid level Current Visit: Yes Status: Resolved Code(s): R79.89 - Other specified abnormal findings of blood chemistry - Assessment / Plan Additional Assessment/Plan Details: Continue electrolyte replacement with potassium and magnesium. Will continue IV fluids, Protonix, and CIWA protocol. Labs in a.m. She states to me that she has had a hard time dealing with her dad's possible diagnosis of bladder cancer. She states that's the reason that she started drinking alcohol again. Cut back on Lantus. The patient is not getting any insulin dose correction at nighttime blood sugar.
[2019-01-22] MEDS: ACETAMINOPHEN 325 MG TABLET PO PRN ×2 (14:15→20:23)
[2019-01-22] MEDS ORDERED: LORazepam 2 MG/1 ML VIAL IVP PRN (20:22)
[2019-01-22] MEDS ORDERED: Insulin Glargine SoloStar Inj 100 UNIT/ML INSULN.PEN SUBCUT SCH (21:00)
[2019-01-23 00:58] VITALS: O2SAT 98
[2019-01-23] MEDS: LORazepam 1 mg tab (ETOH withdrawal) PO PRN ×2 (01:06→03:06)
[2019-01-23] MEDS: MAG HYDROX/AL HYDROX/SIMETH 30 ML SUSP PO PRN ×2 (03:05→07:54)
[2019-01-23] MEDS: ACETAMINOPHEN 325 MG TABLET PO PRN (03:06)
[2019-01-23] MEDS: LEVOTHYROXINE 50 MCG TABLET PO SCH (05:16)
[2019-01-23 05:54] LABS: BASOPHILS # (AUTO) 0.01 10*3/UL; BASOPHILS % (AUTO) 0.2 % (0-1); EOSINOPHILS # (AUTO) 0.13 10*3/UL; EOSINOPHILS % (AUTO) 2.8 % (0-8); Hematocrit [HCT] 35.2 % (37.0-47.0); Hemoglobin [HGB] 12.2 g/dL (12.0-16.0); LYMPHOCYTES # (AUTO) 1.35 10*3/uL; MEAN CORPUSCULAR HEMOGLOBIN 34.7 PG (27-31); MEAN CORPUSCULAR HGB CONC 34.7 g/dL (33-37); MEAN PLATELET VOLUME 10.3 FL (7.4-12.2); MONOCYTES # (AUTO) 0.14 10*3/UL (0.3-0.8); MONOCYTES % (AUTO) 3.1 % (5-15); NEUTROPHILS # (AUTO) 2.95 10*3/UL; NEUTROPHILS % (AUTO) 64.3 % (50-80); RED BLOOD COUNT 3.52 10^6/uL (4.20-5.40)
[2019-01-23 05:57] LABS: PLATELET MORPHOLOGY COMMENT NORMAL MORPHOLOGY (NORM); RBC MORPHOLOGY COMMENT NORMAL MORPHOLOGY (NORM); WBC MORPHOLOGY COMMENT NORMAL MORPHOLOGY (NORM)
[2019-01-23 06:03] LABS: BLOOD UREA NITROGEN 4 mg/dL (7-22); SERUM ALBUMIN 3.8 g/dL (3.5-4.8)
[2019-01-23 07:11] VITALS: BP 121/91; TEMP 97.2
[2019-01-23] MEDS ORDERED: DEXTROSE 31 GM GEL ONE (07:33)
[2019-01-23] MEDS: Insulin Lispro Flexpen 300 UNIT/3 ML INSULN.PEN SUBCUT SCH (07:40)
[2019-01-23] MEDS: POTASSIUM CHLORIDE 20 MEQ TAB PO SCH (07:41)
[2019-01-23 07:46] VITALS: RESP 18
[2019-01-23] MEDS: LORazepam Inj(ETOH withdrawal) 2 MG/ML VIAL IVP PRN (07:54)
[2019-01-23] MEDS ORDERED: Magnesium Sulfate 2gm (Premix) 2 GM/50 ML BAG IV ONE (07:55)
[2019-01-23] MEDS: PANTOPRAZOLE IV 40 MG VIAL IVP SCH (08:23)
[2019-01-23] MEDS: NICOTINE 21 MG /DAY PATCH TRANSDERM SCH (08:23)
[2019-01-23] MEDS: AmLODIPine Tab 5 MG TABLET PO SCH (08:26)
[2019-01-23] MEDS: Metoprolol TARTRATE Tab 25 MG TAB PO SCH (08:26)
[2019-01-23] MEDS: Thiamine Tab 100 MG TAB PO SCH (08:26)
[2019-01-23] MEDS: MAGNESIUM OXIDE 400 MG TABLET PO SCH (08:26)
--- NOTE | 2019-01-23 09:40 | DCSUMMARY ---
Hospitalization Summary Admit Date: 01/21/2019 Discharge Date: 01/23/19 Primary Diagnosis:: alcohol withdrawal syndrome, resolved Hospital Course: This very pleasant 48-year-old female who continues to have problems with alcohol abuse, binge alcoholism, and complications from that, exacerbated in the setting of her type I diabetes. The patient becomes very dehydrated, vomits, develops worsening epigastric pain from alcoholic gastritis as well as chronic pancreatitis, and then comes in with these symptoms. She was found to have electrolyte abnormalities consistent with her prior admissions including hypokalemia and hypomagnesemia. The patient was admitted, placed on a [facility] protocol, electrodes were replaced, and her potassium was normal by the date of discharge. Her lipase was negative. Her blood sugar was low, but with holding down juice, including orange juice, and some food, the blood sugar is now normalized. We reduced her insulin. We replace magnesium, but on the date of discharge, the patient was very frustrated that she could not have narcotics and demanded to leave prior to completion of her magnesium infusion today. She is anxious but is not an obvious withdrawal. She has no tremors. No chest pain and no shortness of breath. Assessment and Plan: 1. As per discharge assessments noted 2. Disposition: Patient is discharged home 3. Condition on discharge, stable and improved. Prognosis remains poor if she continues to drink alcohol. 4. Diet: regular diet 5. Activities: resume normal activities, but I advised to quit drinking 6. Follow-Up: 1. Patient should follow up with her primary provider within 7 days. Primary clinic will call her with an appointment time. 7. Medications at the Time of Discharge: Home Medications Medication Instructions Recorded Confirmed Type omeprazole 40 mg capsule,delayed 40 mg PO DAILY #30 cap 04/24/18 01/05/19 Rx release pen needle, diabetic, safety 30 0 ea .ROUTE .MEDSUPPLY #1 pkg 05/03/18 01/05/19 Rx gauge x 1/3" Blood Sugar Diagnostic [Contour 0 film .ROUTE .MEDSUPPLY 06/02/18 01/05/19 History Test Strip] ondansetron HCl 4 mg tablet 4 mg PO Q6H PRN #30 tab 07/25/18 01/05/19 Rx metoprolol tartrate 25 mg tablet 25 mg PO BID #60 tab 09/28/18 02/22/19 Rx amlodipine 5 mg tablet 5 mg PO DAILY #30 tab 09/06/18 01/05/19 Rx Multivitamin Tab [Thera Tab] 1 tab PO DAILY tab 10/21/18 01/05/19 Rx Potassium Chloride [Klor-Con] 10 meq PO BID #20 tab 10/21/18 01/05/19 Rx insulin NPH isophane U- 100 human 10 unit SUBCUT QAM #10 ml 11/13/18 01/05/19 Rx 100 unit/mL subcutaneous suspension levothyroxine 50 mcg tablet 50 mcg PO DAILY@0530 #90 tab 11/13/18 01/05/19 Rx Insulin Lispro Flexpen Inj 0 - 14 unit SUBCUT AC #3 ml 01/23/19 01/05/19 Rx [HumaLOG Flexpen Inj] This is an observation discharge. Please note continued noncompliance. I spoke with the patient's primary physician yesterday, and patient has no showed several appointments. Exam - Vitals Vital Signs: Vital Signs Temperature 97.2 F Temperature Source Temporal Artery Scan Pulse Rate [Pulse Oximeter] 88 Pulse Rate 88 Respiratory Rate 18 Blood Pressure [Left Arm] 121/91 Blood Pressure 121/91 Pulse Ox 98 Oxygen Delivery Method Room Air Height 5 ft 3 in Weight 125 lb 3.2 oz - General General Appearance: No Acute Distress, Disheveled - Eye Eye Exam: POSITIVE: No Scleral Icterus - ENT ENT Exam: POSITIVE: Mucous Membranes Moist - Neck Neck Exam: JVP is not Raised - Respiratory Respiratory Exam: POSITIVE: Clear to Auscultation - Bilaterally, Breathing Non Labored - Cardiovascular Cardiovascular Exam: POSITIVE: RRR, No Murmur, No Clicks, No Gallops, No Rubs, No JVD - GI/Abdominal GI/Abdominal Exam: POSITIVE: Normal Bowel Sounds, Non Distended, Soft Additional GI/Abdominal Exam Details: With distracting examination, there is no pain, with palpation, the patient has exaggerated response to pain with palpation. - Extremities Extremities Exam: POSITIVE: No Clubbing Present, No Edema Present, No Cyanosis Present - Neurological Neurological Exam: POSITIVE: Alert, Oriented x 3, No Facial Droop, Speech Intact / Clear, Moves All Extremities Equally - Psychiatric Psychiatric Exam: POSITIVE: Anxious Data Peritnent Studies: 01/21/19 01/21/19 01/22/19 08:55 08:55 04:00 WBC Hgb Hct Plt Count Sodium Potassium Chloride Carbon Dioxide 25 Anion Gap BUN Creatinine Estimated GFR BUN/Creatinine Ratio Glucose Calculated Osmolality Calcium Magnesium Total Bilirubin AST ALT Alkaline Phosphatase Total Protein Albumin Globulin Amylase 92 Lipase 69 Acetone Level Negative 01/23/19 01/23/19 05:11 05:11 WBC 4.59 L Hgb 12.2 Hct 35.2 L Plt Count 66 L Sodium 138 Potassium 4.1 D Chloride 111 Carbon Dioxide 16 L Anion Gap 11 BUN 4 L Creatinine 0.5 Estimated GFR > 60 BUN/Creatinine Ratio 8.00 Glucose 48 L* Calculated Osmolality 279.0 Calcium 7.5 L Magnesium 1.6 Total Bilirubin 1.6 H AST 100 H ALT 35 Alkaline Phosphatase 94 Total Protein 6.3 Albumin 3.8 Globulin 2.5 Amylase Lipase Acetone Level Selected Entries 01/23/19 07:00 01/23/19 07:42 Finger Stick Blood Glucose 42 L 99 Patient Problems - Patient Problem List (1) Alcohol withdrawal syndrome Current Visit: Yes Status: Acute Code(s): F10.239 - Alcohol dependence with withdrawal, unspecified Category: Medical (2) Diabetes mellitus Current Visit: Yes Status: Acute Code(s): E11.9 - Type 2 diabetes mellitus without complications Qualifiers: Diabetes mellitus type: type 1 Diabetes mellitus complication status: with hypoglycemia Diabetes mellitus complication detail: without coma Qualified Code(s): E10.649 - Type 1 diabetes mellitus with hypoglycemia without coma Category: Medical (3) Nausea and vomiting Current Visit: Yes Status: Acute Comment: At the point of discharge, saw the patient drinking fluids at bedside, she had a meal tray at bedside, she was not vomiting, and she held down fluids when I actually watched her drink. Code(s): R11.2 - Nausea with vomiting, unspecified Category: Medical (4) Hypertension Current Visit: Yes Status: Chronic Code(s): I10 - Essential (primary) hypertension Qualifiers: Hypertension type: essential hypertension Qualified Code(s): I10 - Essential (primary) hypertension Category: Medical (5) Elevated lactic acid level Current Visit: Yes Status: Resolved Code(s): R79.89 - Other specified abnormal findings of blood chemistry Category: Medical (6) Medical non-compliance Current Visit: Yes Status: Acute Code(s): Z91.19 - Patient's noncompliance with other medical treatment and regimen Category: Medical (7) Chronic pancreatitis Current Visit: No Status: Chronic Code(s): K86.1 - Other chronic pancreat itis Qualifiers: Pancreatitis type: alcohol induced Category: Medical
[2019-01-24] MEDS ORDERED: Multivitamin Tab 1 TAB PO SCH (09:00)
== END 2019-01-23 09:42 | disposition home or self-care (01) ==
LOC: ER 08:32 → MED/SURG 08:32
PROVIDERS: ADMIT Internal Medicine; ATTEND Internal Medicine

== ENCOUNTER 2019-08-16 10:52 | Inpatient (IN) ==
[2019-08-16] MEDS ORDERED: Ondansetron ODT Tab 4 MG TAB PO ONE (11:02)
[2019-08-16] MEDS ORDERED: Sodium Chloride 0.9% 1,000 ML PRIMARY IV ONE ×2 (11:02→12:19)
[2019-08-16 11:16] LABS: BILIRUBIN,URINE NEGATIVE (NEG); CLARITY,URINE CLEAR (CLEAR); COLOR,URINE YELLOW (Y); GLUCOSE, URINE (UA) 100 mg/dL (NEG); OCCULT BLOOD,URINE Trace-intact (NEG); PROTEIN,URINE NEGATIVE (NEG); UROBILINOGEN,URINE 0.2 EU/dL (0.2)
[2019-08-16] MEDS ORDERED: LORazepam 2 MG/1 ML VIAL IVP ONE ×2 (11:17→13:02)
[2019-08-16 11:23] LABS: AMPHETAMINE SCREEN NEGATIVE (NEG); CANNABINOID SCREEN,URINE NEGATIVE (NEG); COCAINE SCREEN NEGATIVE (NEG); METHADONE URINE SCREEN NEGATIVE (NEG); METHAMPHETAMINES SCREEN,URINE NEGATIVE (NEG); OPIATE SCREEN,URINE NEGATIVE (NEG); URINE SAMPLE TYPE CLEAN CATCH URINE; URINE SPECIFIC GRAVITY - MAN 1.015
[2019-08-16 11:29] LABS: URINE SPECIFIC GRAVITY - MAN 1.015
[2019-08-16 12:02] LABS: BASOPHILS # (AUTO) 0.09 10*3/UL; BASOPHILS % (AUTO) 1.4 % (0-1); EOSINOPHILS # (AUTO) 0.02 10*3/UL; EOSINOPHILS % (AUTO) 0.3 % (0-8); Hematocrit [HCT] 38.2 % (37.0-47.0); Hemoglobin [HGB] 13.5 g/dL (12.0-16.0); LYMPHOCYTES # (AUTO) 1.21 10*3/uL; MEAN CORPUSCULAR HGB CONC 35.3 g/dL (33-37); MEAN CORPUSCULAR VOLUME 93.6 FL (81-99); MEAN PLATELET VOLUME 8.8 FL (7.4-12.2); MONOCYTES # (AUTO) 0.24 10*3/UL (0.3-0.8); MONOCYTES % (AUTO) 3.6 % (5-15); NEUTROPHILS # (AUTO) 5.03 10*3/UL; NEUTROPHILS % (AUTO) 76.1 % (50-80); RED BLOOD COUNT 4.08 10^6/uL (4.20-5.40)
[2019-08-16 12:05] LABS: PLATELET MORPHOLOGY COMMENT NORMAL MORPHOLOGY (NORM); RBC MORPHOLOGY COMMENT NORMAL MORPHOLOGY (NORM); WBC MORPHOLOGY COMMENT NORMAL MORPHOLOGY (NORM)
[2019-08-16 12:09] LABS: BLOOD UREA NITROGEN 14 mg/dL (7-22)
[2019-08-16] MEDS ORDERED: POTASSIUM CHLORIDE 20 MEQ TAB PO ONE (12:18)
[2019-08-16] MEDS ORDERED: Magnesium Sulfate 1gm (Premix) 1 GM/100 ML BAG IV ONE (12:23)
[2019-08-16 12:51] LABS: VENOUS PH 7.45 (7.32-7.42)
[2019-08-16] MEDS ORDERED: MAGNESIUM 400 MG/5 ML - 30 ML (MILK OF MAGNESIA) PO PRN (14:25)
[2019-08-16] MEDS ORDERED: LIDOCAINE W/ SODIUM BICARB 0.5 ML SYR SUBD PRN (14:25)
[2019-08-16] MEDS ORDERED: MAG HYDROX/AL HYDROX/SIMETH 30 ML SUSP PO PRN (14:25)
[2019-08-16] MEDS ORDERED: Magnesium Sulfate 4gm (Premix) 4 GM/100 ML BAG IV ONE (14:25)
[2019-08-16] MEDS: NICOTINE 21 MG /DAY PATCH TRANSDERM SCH (16:18)
[2019-08-16] MEDS: Dexmedetomidine/NS 400 MCG/100 ML INFUS..BTL IV SCH (17:31)
[2019-08-16] MEDS: Metoprolol TARTRATE Tab 25 MG TAB PO SCH (21:19)
[2019-08-16] MEDS ORDERED: DEXTROSE 50%-WATER SYRINGE 50 ML SYRINGE IVP PRN (21:40)
[2019-08-16] MEDS ORDERED: DEXTROSE 31 GM GEL PO PRN (21:40)
[2019-08-16] MEDS ORDERED: Glucagon Inj Vial 1 MG/ML VIAL IM PRN (21:40)
[2019-08-16] MEDS ORDERED: Insulin Sliding Scale Protocol SUBCUT PRN (21:40)
[2019-08-16 21:54] LABS: BLOOD UREA NITROGEN 9 mg/dL (7-22); SERUM ALBUMIN 4.1 g/dL (3.5-4.8)
[2019-08-17 05:32] LABS: BASOPHILS # (AUTO) 0.05 10*3/UL; EOSINOPHILS # (AUTO) 0.06 10*3/UL; EOSINOPHILS % (AUTO) 1.2 % (0-8); Hematocrit [HCT] 33.3 % (37.0-47.0); Hemoglobin [HGB] 11.3 g/dL (12.0-16.0); LYMPHOCYTES # (AUTO) 1.92 10*3/uL; MEAN CORPUSCULAR HGB CONC 33.9 g/dL (33-37); MEAN PLATELET VOLUME 9.5 FL (7.4-12.2); MONOCYTES # (AUTO) 0.31 10*3/UL (0.3-0.8); MONOCYTES % (AUTO) 6.3 % (5-15); NEUTROPHILS # (AUTO) 2.55 10*3/UL; NEUTROPHILS % (AUTO) 52.1 % (50-80); RED BLOOD COUNT 3.47 10^6/uL (4.20-5.40)
[2019-08-17 05:47] LABS: PLATELET MORPHOLOGY COMMENT NORMAL MORPHOLOGY (NORM); RBC MORPHOLOGY COMMENT NORMAL MORPHOLOGY (NORM); WBC MORPHOLOGY COMMENT NORMAL MORPHOLOGY (NORM)
[2019-08-17 05:55] LABS: BLOOD UREA NITROGEN 8 mg/dL (7-22); BUN/CREATININE RATIO 11.42 (6-20); SERUM ALBUMIN 3.9 g/dL (3.5-4.8)
[2019-08-17] MEDS: Insulin Lispro Flexpen 300 UNIT/3 ML INSULN.PEN SUBCUT SCH ×4 (08:00→20:35)
[2019-08-17] MEDS: Diazepam Inj (ETOH withdrawal)10 MG/2 ML CARPUJECT IVP PRN ×5 (09:26→22:53)
[2019-08-17] MEDS: Metoprolol TARTRATE Tab 25 MG TAB PO SCH ×2 (09:28→20:29)
[2019-08-17] MEDS: NICOTINE 21 MG /DAY PATCH TRANSDERM SCH ×2 (09:31→16:12)
[2019-08-17] MEDS: PANTOPRAZOLE IV 40 MG VIAL IVP SCH (09:33)
[2019-08-17] MEDS ORDERED: ACETAMINOPHEN 325 MG TABLET PO ONE (12:38)
[2019-08-17] MEDS ORDERED: Potassium Phoshate Inj 30 MMOL in D5W 500 ML IV ONE (12:56)
[2019-08-17] MEDS: Sodium Chloride 0.9% 1,000 ML PRIMARY IV SCH (14:31)
[2019-08-17] MEDS: Dexmedetomidine/NS 400 MCG/100 ML INFUS..BTL IV SCH (20:30)
[2019-08-17] MEDS ORDERED: Insulin Glargine SoloStar Inj 100 UNIT/ML INSULN.PEN SUBCUT SCH (21:00)
[2019-08-17] MEDS ORDERED: POTASSIUM CHLORIDE 20 MEQ TAB PO ONE (21:16)
[2019-08-18] MEDS: Diazepam Inj (ETOH withdrawal)10 MG/2 ML CARPUJECT IVP PRN ×6 (04:35→21:19)
[2019-08-18 05:31] LABS: BLOOD UREA NITROGEN 8 mg/dL (7-22); BUN/CREATININE RATIO 13.33 (6-20); SERUM ALBUMIN 3.8 g/dL (3.5-4.8)
[2019-08-18] MEDS: Insulin Lispro Flexpen 300 UNIT/3 ML INSULN.PEN SUBCUT SCH ×4 (07:05→20:21)
[2019-08-18] MEDS ORDERED: Magnesium Sulfate 2gm (Premix) 2 GM/50 ML BAG IV ONE ×2 (08:38→12:56)
[2019-08-18] MEDS: Metoprolol TARTRATE Tab 25 MG TAB PO SCH ×2 (09:16→20:22)
[2019-08-18] MEDS: PANTOPRAZOLE IV 40 MG VIAL IVP SCH (09:17)
[2019-08-18] MEDS: NICOTINE 21 MG /DAY PATCH TRANSDERM SCH (09:20)
[2019-08-18] MEDS: ACETAMINOPHEN 500 MG TABLET PO PRN ×2 (10:49→18:43)
[2019-08-18] MEDS: Sodium Chloride 0.9% 1,000 ML PRIMARY IV SCH (13:36)
[2019-08-18] MEDS: FOLIC ACID 5 MG/1 ML - 10 ML IVP SCH (15:27)
[2019-08-18] MEDS: ChlordiazePOXIDE Cap 25 MG CAPSULE PO SCH ×2 (15:27→20:22)
[2019-08-18] MEDS: diphenhydrAMINE 25 MG CAPSULE PO SCH (20:22)
[2019-08-19] MEDS: ACETAMINOPHEN 500 MG TABLET PO PRN ×3 (00:14→13:17)
[2019-08-19] MEDS ORDERED: DIAZEPAM 10 MG/2 ML (5 MG/1 ML) CARPUJECT IVP ONE (00:47)
[2019-08-19] MEDS: Dexmedetomidine/NS 400 MCG/100 ML INFUS..BTL IV SCH ×2 (00:51→16:33)
[2019-08-19] MEDS: Diazepam Inj (ETOH withdrawal)10 MG/2 ML CARPUJECT IVP PRN ×6 (03:46→22:03)
[2019-08-19] MEDS ORDERED: DIAZEPAM 10 MG/2 ML (5 MG/1 ML) CARPUJECT ONE (07:23)
[2019-08-19] MEDS: Insulin Lispro Flexpen 300 UNIT/3 ML INSULN.PEN SUBCUT SCH ×4 (07:41→21:35)
[2019-08-19] MEDS: PANTOPRAZOLE IV 40 MG VIAL IVP SCH (08:59)
[2019-08-19] MEDS: Metoprolol TARTRATE Tab 25 MG TAB PO SCH ×2 (08:59→19:59)
[2019-08-19] MEDS: ChlordiazePOXIDE Cap 25 MG CAPSULE PO SCH ×3 (08:59→19:59)
[2019-08-19] MEDS: NICOTINE 21 MG /DAY PATCH TRANSDERM SCH (09:00)
[2019-08-19] MEDS: FOLIC ACID 5 MG/1 ML - 10 ML IVP SCH (09:04)
[2019-08-19 09:26] LABS: BLOOD UREA NITROGEN 12 mg/dL (7-22); SERUM ALBUMIN 3.7 g/dL (3.5-4.8)
[2019-08-19] MEDS ORDERED: Magnesium Sulfate 2gm (Premix) 2 GM/50 ML BAG IV ONE ×2 (09:36→11:22)
[2019-08-19] MEDS: POTASSIUM CHLORIDE 20 MEQ TAB PO SCH ×2 (10:08→18:12)
[2019-08-19 14:34] LABS: SERUM ALBUMIN 3.6 g/dL (3.5-4.8)
[2019-08-19] MEDS: diphenhydrAMINE 25 MG CAPSULE PO SCH (22:28)
[2019-08-20] MEDS: Diazepam Inj (ETOH withdrawal)10 MG/2 ML CARPUJECT IVP PRN ×8 (00:32→20:41)
[2019-08-20] MEDS: ACETAMINOPHEN 500 MG TABLET PO PRN ×2 (01:00→08:50)
[2019-08-20] MEDS: Dexmedetomidine/NS 400 MCG/100 ML INFUS..BTL IV SCH (05:23)
[2019-08-20 05:33] LABS: BASOPHILS # (AUTO) 0.05 10*3/UL; BASOPHILS % (AUTO) 0.9 % (0-1); EOSINOPHILS # (AUTO) 0.15 10*3/UL; EOSINOPHILS % (AUTO) 2.8 % (0-8); Hematocrit [HCT] 33.9 % (37.0-47.0); Hemoglobin [HGB] 10.8 g/dL (12.0-16.0); LYMPHOCYTES # (AUTO) 1.59 10*3/uL; MEAN CORPUSCULAR HGB CONC 31.9 g/dL (33-37); MEAN CORPUSCULAR VOLUME 100.6 FL (81-99); MEAN PLATELET VOLUME 9.9 FL (7.4-12.2); MONOCYTES # (AUTO) 0.13 10*3/UL (0.3-0.8); MONOCYTES % (AUTO) 2.4 % (5-15); NEUTROPHILS % (AUTO) 64.1 % (50-80); RED BLOOD COUNT 3.37 10^6/uL (4.20-5.40)
[2019-08-20 05:36] LABS: PLATELET MORPHOLOGY COMMENT NORMAL MORPHOLOGY (NORM); RBC MORPHOLOGY COMMENT NORMAL MORPHOLOGY (NORM); WBC MORPHOLOGY COMMENT NORMAL MORPHOLOGY (NORM)
[2019-08-20 05:38] LABS: BLOOD UREA NITROGEN 13 mg/dL (7-22); BUN/CREATININE RATIO 21.66 (6-20); SERUM ALBUMIN 3.8 g/dL (3.5-4.8)
[2019-08-20] MEDS: Insulin Lispro Flexpen 300 UNIT/3 ML INSULN.PEN SUBCUT SCH ×4 (06:54→20:57)
[2019-08-20] MEDS: POTASSIUM CHLORIDE 20 MEQ TAB PO SCH (07:20)
[2019-08-20] MEDS ORDERED: Magnesium Sulfate 2gm (Premix) 2 GM/50 ML BAG IV ONE (07:31)
[2019-08-20] MEDS: FOLIC ACID 5 MG/1 ML - 10 ML IVP SCH (08:08)
[2019-08-20] MEDS: PANTOPRAZOLE IV 40 MG VIAL IVP SCH (08:11)
[2019-08-20] MEDS: ChlordiazePOXIDE Cap 25 MG CAPSULE PO SCH ×3 (08:50→20:40)
[2019-08-20] MEDS: Metoprolol TARTRATE Tab 25 MG TAB PO SCH ×2 (08:50→20:40)
[2019-08-20] MEDS: NICOTINE 21 MG /DAY PATCH TRANSDERM SCH (08:51)
[2019-08-20 11:06] LABS: BILIRUBIN,URINE NEGATIVE (NEG); CLARITY,URINE CLEAR (CLEAR); COLOR,URINE YELLOW (Y); GLUCOSE, URINE (UA) NEGATIVE (NEG); OCCULT BLOOD,URINE NEGATIVE (NEG); PROTEIN,URINE NEGATIVE (NEG); UROBILINOGEN,URINE 0.2 EU/dL (0.2)
[2019-08-20 11:07] LABS: URINE SAMPLE TYPE VOIDED SPECIMEN
[2019-08-20 15:23] LABS: BLOOD UREA NITROGEN 15 mg/dL (7-22); BUN/CREATININE RATIO 16.66 (6-20)
[2019-08-20] MEDS ORDERED: FUROSEMIDE 10 MG/1 ML - 4 ML IVP ONE (15:31)
[2019-08-20] MEDS: AmLODIPine Tab 5 MG TABLET PO SCH (15:54)
[2019-08-20] MEDS ORDERED: Sodium Chloride 0.9% 250 ML ONE (19:35)
[2019-08-20 21:52] LABS: BLOOD UREA NITROGEN 18 mg/dL (7-22); SERUM ALBUMIN 4.5 g/dL (3.5-4.8)
[2019-08-21] MEDS: diphenhydrAMINE 25 MG CAPSULE PO SCH (00:39)
[2019-08-21] MEDS: Diazepam Inj (ETOH withdrawal)10 MG/2 ML CARPUJECT IVP PRN ×4 (01:09→21:57)
[2019-08-21] MEDS ORDERED: DIAZEPAM 10 MG/2 ML (5 MG/1 ML) CARPUJECT ONE (04:40)
[2019-08-21 05:29] LABS: BLOOD UREA NITROGEN 21 mg/dL (7-22); BUN/CREATININE RATIO 26.25 (6-20); SERUM ALBUMIN 4.3 g/dL (3.5-4.8)
[2019-08-21] MEDS: Insulin Lispro Flexpen 300 UNIT/3 ML INSULN.PEN SUBCUT SCH ×4 (07:47→20:36)
[2019-08-21] MEDS: DIAZEPAM 10 MG/2 ML (5 MG/1 ML) CARPUJECT IVP PRN ×4 (08:12→15:59)
[2019-08-21] MEDS ORDERED: Magnesium Sulfate 2gm (Premix) 2 GM/50 ML BAG IV ONE (09:05)
[2019-08-21] MEDS: ChlordiazePOXIDE Cap 25 MG CAPSULE PO SCH ×3 (09:31→20:15)
[2019-08-21] MEDS: Metoprolol TARTRATE Tab 25 MG TAB PO SCH ×2 (09:32→20:44)
[2019-08-21] MEDS: AmLODIPine Tab 5 MG TABLET PO SCH (09:33)
[2019-08-21] MEDS: PANTOPRAZOLE IV 40 MG VIAL IVP SCH (09:35)
[2019-08-21] MEDS: FOLIC ACID 5 MG/1 ML - 10 ML IVP SCH (09:36)
[2019-08-21] MEDS: NICOTINE 21 MG /DAY PATCH TRANSDERM SCH (09:38)
[2019-08-21] MEDS: Dexmedetomidine/NS 400 MCG/100 ML INFUS..BTL IV SCH (09:39)
[2019-08-21] MEDS: POTASSIUM CHLORIDE 20 MEQ TAB PO SCH ×2 (10:12→20:15)
[2019-08-21] MEDS: ACETAMINOPHEN 500 MG TABLET PO PRN ×2 (11:15→20:15)
[2019-08-21] MEDS: ONDANSETRON 4 MG/2 ML VIAL IV PRN (12:16)
[2019-08-22] MEDS: ONDANSETRON 4 MG/2 ML VIAL IV PRN (01:24)
[2019-08-22 05:31] LABS: BLOOD UREA NITROGEN 24 mg/dL (7-22); SERUM ALBUMIN 4.1 g/dL (3.5-4.8)
[2019-08-22] MEDS: Diazepam Inj (ETOH withdrawal)10 MG/2 ML CARPUJECT IVP PRN ×3 (05:43→09:17)
[2019-08-22] MEDS: Insulin Lispro Flexpen 300 UNIT/3 ML INSULN.PEN SUBCUT SCH ×4 (06:52→20:46)
[2019-08-22] MEDS: ChlordiazePOXIDE Cap 25 MG CAPSULE PO SCH (08:57)
[2019-08-22] MEDS: FOLIC ACID 5 MG/1 ML - 10 ML IVP SCH (08:57)
[2019-08-22] MEDS: AmLODIPine Tab 5 MG TABLET PO SCH (08:57)
[2019-08-22] MEDS: PANTOPRAZOLE IV 40 MG VIAL IVP SCH (08:57)
[2019-08-22] MEDS: POTASSIUM CHLORIDE 20 MEQ TAB PO SCH (08:57)
[2019-08-22] MEDS: Metoprolol TARTRATE Tab 25 MG TAB PO SCH ×2 (08:57→20:46)
[2019-08-22] MEDS: NICOTINE 21 MG /DAY PATCH TRANSDERM SCH (08:58)
[2019-08-22] MEDS ORDERED: Sodium Chloride 0.9% 1,000 ML, Magnesium Sulfate 2gm (Premix) 50 ML with Multivitamin I... IV SCH ×5 (11:15)
[2019-08-22] MEDS: LORazepam Inj(ETOH withdrawal) 2 MG/ML VIAL IVP PRN ×4 (13:09→21:32)
[2019-08-22] MEDS ORDERED: Sodium Chloride 0.9% 0 ML PRIMARY IV ONE (13:48)
[2019-08-22] MEDS ORDERED: Lactated Ringers 1,000 ML PRIMARY IV SCH (13:49)
[2019-08-22] MEDS ORDERED: Lactated Ringers 1,000 ML PRIMARY IV ONE (13:49)
[2019-08-22] MEDS: Dexmedetomidine/NS 400 MCG/100 ML INFUS..BTL IV SCH (15:40)
[2019-08-23] MEDS: ONDANSETRON 4 MG/2 ML VIAL IV PRN (02:15)
[2019-08-23] MEDS: ACETAMINOPHEN 500 MG TABLET PO PRN ×3 (02:44→22:09)
[2019-08-23] MEDS: diphenhydrAMINE 25 MG CAPSULE PO SCH (02:45)
[2019-08-23] MEDS: LORazepam Inj(ETOH withdrawal) 2 MG/ML VIAL IVP PRN (05:15)
[2019-08-23 05:45] LABS: BLOOD UREA NITROGEN 22 mg/dL (7-22); BUN/CREATININE RATIO 24.44 (6-20); SERUM ALBUMIN 4.2 g/dL (3.5-4.8)
[2019-08-23] MEDS ORDERED: Magnesium Sulfate 2gm (Premix) 2 GM/50 ML BAG IV ONE (07:19)
[2019-08-23] MEDS ORDERED: MAGNESIUM OXIDE 400 MG TABLET PO SCH (07:30)
[2019-08-23] MEDS: Insulin Lispro Flexpen 300 UNIT/3 ML INSULN.PEN SUBCUT SCH ×4 (07:31→21:02)
[2019-08-23] MEDS: LORazepam 1 MG TABLET PO ONE ×2 (07:38→08:55)
[2019-08-23] MEDS: FOLIC ACID 5 MG/1 ML - 10 ML IVP SCH (08:12)
[2019-08-23] MEDS: PANTOPRAZOLE IV 40 MG VIAL IVP SCH (08:12)
[2019-08-23] MEDS ORDERED: LORazepam 1 MG TABLET PO ONE (09:15)
[2019-08-23] MEDS: AmLODIPine Tab 5 MG TABLET PO SCH (10:11)
[2019-08-23] MEDS: NICOTINE 21 MG /DAY PATCH TRANSDERM SCH (10:11)
[2019-08-23] MEDS: LORazepam 1 mg tab (ETOH withdrawal) PO PRN ×6 (10:12→22:11)
[2019-08-23] MEDS: Metoprolol TARTRATE Tab 25 MG TAB PO SCH ×2 (10:12→20:47)
[2019-08-23] MEDS ORDERED: MAGNESIUM 400 MG/5 ML - 30 ML (MILK OF MAGNESIA) PO PRN (14:13)
[2019-08-23] MEDS ORDERED: LIDOCAINE W/ SODIUM BICARB 0.5 ML SYR SUBD PRN (14:13)
[2019-08-23] MEDS ORDERED: DEXTROSE 31 GM GEL PO PRN (14:13)
[2019-08-23] MEDS ORDERED: Glucagon Inj Vial 1 MG/ML VIAL IM PRN (14:13)
[2019-08-23] MEDS ORDERED: MAG HYDROX/AL HYDROX/SIMETH 30 ML SUSP PO PRN (14:13)
[2019-08-23] MEDS ORDERED: diphenhydrAMINE 25 MG CAPSULE PO SCH (21:00)
[2019-08-24] MEDS: LORazepam 1 mg tab (ETOH withdrawal) PO PRN ×7 (00:15→15:18)
[2019-08-24] MEDS: ACETAMINOPHEN 500 MG TABLET PO PRN ×2 (03:05→12:42)
[2019-08-24 05:37] VITALS: O2SAT 94
[2019-08-24] MEDS ORDERED: PANTOPRAZOLE 40 MG TABLET PO SCH (07:00)
[2019-08-24] MEDS ORDERED: MAGNESIUM OXIDE 400 MG TABLET PO SCH ×2 (07:00→21:00)
[2019-08-24] MEDS: Insulin Lispro Flexpen 300 UNIT/3 ML INSULN.PEN SUBCUT SCH ×3 (07:02→16:19)
[2019-08-24] MEDS ORDERED: Thiamine Tab 100 MG TAB PO SCH (09:00)
[2019-08-24] MEDS ORDERED: NICOTINE 21 MG /DAY PATCH TRANSDERM SCH (09:00)
[2019-08-24] MEDS ORDERED: Multivitamin Tab 1 TAB PO SCH (09:00)
[2019-08-24] MEDS ORDERED: AmLODIPine Tab 5 MG TABLET PO SCH (09:00)
[2019-08-24] MEDS ORDERED: Patch Removal PATCH TRANSDERM SCH (09:00)
[2019-08-24] MEDS ORDERED: FOLIC ACID 1 MG TABLET PO SCH (09:00)
[2019-08-24] MEDS: Metoprolol TARTRATE Tab 25 MG TAB PO SCH (09:52)
[2019-08-24 12:36] VITALS: RESP 22
[2019-08-24 14:02] LABS: Hematocrit [HCT] 37.9 % (37.0-47.0); Hemoglobin [HGB] 12.6 g/dL (12.0-16.0); MEAN CORPUSCULAR HGB CONC 33.2 g/dL (33-37); MEAN CORPUSCULAR VOLUME 99.7 FL (81-99); MEAN PLATELET VOLUME 10.4 FL (7.4-12.2)
[2019-08-24 14:03] LABS: BASOPHILS # (AUTO) 0.07 10*3/UL; BASOPHILS % (AUTO) 1.4 % (0-1); EOSINOPHILS # (AUTO) 0.18 10*3/UL; EOSINOPHILS % (AUTO) 3.6 % (0-8); LYMPHOCYTES # (AUTO) 1.39 10*3/uL; MONOCYTES # (AUTO) 0.29 10*3/UL (0.3-0.8); MONOCYTES % (AUTO) 5.9 % (5-15); NEUTROPHILS # (AUTO) 2.92 10*3/UL; PLATELET MORPHOLOGY COMMENT NORMAL MORPHOLOGY (NORM); RBC MORPHOLOGY COMMENT NORMAL MORPHOLOGY (NORM); WBC MORPHOLOGY COMMENT NORMAL MORPHOLOGY (NORM)
[2019-08-24 15:17] VITALS: BP 119/89; TEMP 98.5
[2019-08-24] MEDS ORDERED: LORazepam 1 MG TABLET PO ONE (16:53)
== END 2019-08-24 17:25 | DRG 880 ==
LOC: ER 10:52 → MED/SURG 14:18 → ICU 14:23 → MED/SURG 08-23 13:47
PROVIDERS: ADMIT Family Medicine; ATTEND Internal Medicine